=== PATIENT | female | born 1975 | race Caucasian/White ===

== ENCOUNTER 2023-03-02 12:50 | Outpatient (OUT) | payer BC, SELFPAY ==
[2023-03-03 06:08] LABS: Hepatitis B Surf Ab Quant 827.5 mIU/mL (Immunity>9.9)
[2023-03-03 07:08] LABS: Mumps Abs, IgG 35.3 AU/mL (Immune >10.9); Rubella Antibodies, IgG 1.41 index (Immune >0.99); Varicella-Zoster V Ab, IgG 599 index (Immune >165)
[2023-03-04 06:08] LABS: QuantiFERON-TB Gold Plus Positive (Negative)
== END 2023-03-02 12:51 ==
LOC: LAB 12:54
PROVIDERS: PCP Family Medicine; Visit Provider Family Medicine
DX: Z13.89 Encounter for screening for other disorder (principal)
CPT/HCPCS: 36415; 86480; 86706; 86735; 86762; 86765; 86787

== ENCOUNTER 2023-04-15 15:21 | Outpatient (OUT) | payer BC, SELFPAY ==
[2023-04-15 16:14] LABS: Thyroid Stimulating Hormone 3.699 uIU/mL (0.358-3.740)
[2023-04-17 04:23] LABS: Estradiol <5.0 pg/mL (.); FSH 64.4 mIU/mL (.); Luteinizing Hormone(LH) 39.1 mIU/mL (.); Progesterone 0.1 ng/mL (.)
[2023-04-20 06:06] LABS: DHEA, Serum 85 ng/dL (31-701)
== END 2023-04-15 15:22 | disposition home or self-care (01) ==
LOC: LAB 15:22
PROVIDERS: PCP Family Medicine; Visit Provider Family Medicine
DX: N95.1 Menopausal and female climacteric states (principal)
CPT/HCPCS: 36415; 82626; 82670; 83001; 83002; 84144; 84146; 84443

== ENCOUNTER 2023-06-19 11:16 | Outpatient (OUT) | payer BC, SELFPAY ==
--- NOTE | 2023-06-19 11:30 | XR_ITS ---
The [address] [address] Patient Name: IMAN DURAN MRN: [id number] date: 1975 Sex: F Assigned Patient Location: [facility] Current Patient Location: [facility] Accession/Order Number: [id number] Exam Date: 06/19/2023 11:23 Report Date: 06/19/2023 13:19 At the request of: DORIS LEWIS Procedure: XR abdomen 1V EXAM: XR abdomen 1V HISTORY: Right Kidney Stone N20.0 COMPARISON: None. TECHNIQUE: AP view of the abdomen. FINDINGS: Nonobstructive bowel gas pattern is noted. There is no suspicious calcification. The osseous structures are intact. XR/XR abdomen 1V IMPRESSION: Nonobstructive bowel gas pattern. No suspicious renal calcification. Electronically authenticated by: TUTU GARZA Date: 06/19/2023 13:19
== END 2023-06-19 11:17 | disposition home or self-care (01) ==
PROVIDERS: PCP Family Medicine; Visit Provider Family Medicine
DX: N20.0 Calculus of kidney (principal)
CPT/HCPCS: 74018

== ENCOUNTER 2023-06-20 05:47 | Emergency (ER) | payer BC, SELFPAY ==
[2023-06-20 05:50] VITALS: BP 147/92; PULSE 69; RESP 16; TEMP 36.4; O2SAT 98; BMI 36.3
--- NOTE | 2023-06-20 06:09 | CT_ITS ---
The [address] [address] Patient Name: IMAN DURAN MRN: [id number] date: 1975 Sex: F Assigned Patient Location: ER Current Patient Location: ER Accession/Order Number: [id number] Exam Date: 06/20/2023 06:15 Report Date: 06/20/2023 08:07 At the request of: VON WASHINGTON Procedure: CT abdomen pelvis wo con CT abdomen pelvis wo con CLINICAL HISTORY: Right flank pain. Vomiting. History of renal stones. COMPARISON: None Available. TECHNIQUE: No IV contrast axial CT scan from lung bases through symphysis pubis. Lack of IV contrast limits evaluation of solid organs. Oral contrast was not administered. Coronal and sagittal reconstructed images generated. Dose reduction techniques were achieved by using automated exposure control and/or adjustment of mA and/or kV according to patient size and/or use of iterative reconstruction technique. FINDINGS: CT ABDOMEN FINDINGS: Normal heart size. Small hiatal hernia. Lung bases clear. Liver and spleen normal in size. Normal sized adrenal glands. Gallbladder and pancreas unremarkable. No renal stone or hydronephrosis on the left. On the right there is a 2 mm calculus at the right ureterovesicular junction with mild right hydronephrosis and perinephric edema. There are two additional 2 mm nonobstructing calculi over the right mid and lower poles. Also a 1 mm nonobstructing calculus over the right lower pole. Normal caliber abdominal aorta. GI tract nondilated without obstruction. No significant inflammatory change or ascites. Appendix is negative. CT PELVIS FINDINGS: Hysterectomy. Urinary bladder not distended but otherwise unremarkable. Scattered pelvic phleboliths. No acute bony process. CT/CT abdomen pelvis wo con IMPRESSION: 2 mm right ureterovesicular junction calculus causing mild right hydronephrosis. Two small nonobstructing right renal calculi. Appendix negative. Electronically authenticated by: CASSANDRA HERNANDEZ Date: 06/20/2023 08:07
--- NOTE | 2023-06-20 06:16 | ED_ITS ---
HPI - General Adult General Chief complaint: Abdominal Pain Stated complaint: flank pain Time Seen by Provider: 06/20/23 06:05 Mode of arrival: Wheelchair History of Present Illness HPI narrative: 47-year-old female to the emergency department with chief complaint of acute onset of right-sided flank pain that began early this morning. She has had some generalized discomfort in her right flank over the last few days which has been intermittent but now has pain in her right flank radiating into her groin. She reports dysuria, hematuria. She reports a history of a kidney stone a little over a year ago with similar symptoms. She x-ray today which did not reveal the source of the pain. She saw her primary care doctor for this. She reports that she has nausea and vomiting associated with the pain. She denies any fever, sweats, chills. Related Data Home Medications Medication Instructions Recorded Confirmed No Known Home Medications 06/20/23 06/20/23 Allergies Allergy/AdvReac Type Severity Reaction Status Date / Time doxycycline Allergy Unknown Verified 06/20/23 05:53 Sulfa (Sulfonamide Allergy Unknown Verified 06/20/23 05:53 Antibiotics) Review of Systems ROS Status of ROS 10 or more systems reviewed and unremarkable except as noted in history and below [facility] Social History Smoking status: Never smoker Exam Narrative Exam Narrative: VITALS: I have reviewed the triage vital signs. GENERAL: Uncomfortable appearing adult female holding her right flank NEURO: Alert and oriented. Moves all extremities. Face is symmetric and expressive. EYES: PERRL. No scleral icterus or conjunctival injection. No discharge. HENT: Normocephalic, atraumatic. Hearing is grossly intact. Nares grossly patent and without discharge. Mucous membranes moist. NECK: No JVD. Patient moves neck without restriction. CARDIO: Rhythm regular. Normal rate. No murmur, rub, or gallop. Pulses equal bilaterally in the upper and lower extremity. No lower extremity edema. PULM: Lungs clear to auscultation in all see. No wheezes, rales, or rhonchi. No conversational dyspnea. No splinting, stridor, or accessory muscle use. GI/: Abdomen is soft and non-tender. Normoactive bowel sounds. EXTREMITIES: Symmetric muscle bulk. No joint swelling. No clubbing, cyanosis, or deformity. SKIN: Warm and dry. Normal turgor. No rash or lesions appreciated. PSYCH: Mood, affect, and interaction is appropriate to the setting. Constitutional Vital Signs, click to edit/add: Last Vital Signs Temp 97.5 F L 06/20/23 05:50 Pulse 69 06/20/23 05:50 Resp 16 06/20/23 05:50 BP 147/92 H 06/20/23 05:50 Pulse Ox 98 06/20/23 05:50 O2 Del Method Room Air 06/20/23 05:50 Course Vital Signs Vital signs: Vital Signs Temperature 97.5 F L 06/20/23 05:50 Pulse Rate 69 06/20/23 05:50 Respiratory Rate 16 06/20/23 05:50 Blood Pressure 147/92 H 06/20/23 05:50 Pulse Oximetry 98 06/20/23 05:50 Oxygen Delivery Method Room Air 06/20/23 05:50 Temperature 97.5 F L 06/20/23 05:50 Pulse Rate 69 06/20/23 05:50 Respiratory Rate 16 06/20/23 05:50 Blood Pressure 147/92 H 06/20/23 05:50 Pulse Oximetry 98 06/20/23 05:50 Oxygen Delivery Method Room Air 06/20/23 05:50 Medical Decision Making MDM Narrative Medical decision making narrative: Number and Complexity of Problems Differential Diagnosis: Kidney stone, Pyelonephritis, urinary tract infection, appendicitis, diverticulitis, musculoskeletal pain MDM Data External documents reviewed: Not applicable My EKG interpretation: Not applicable My CT interpretation: Reviewed, as below My X-ray interpretation: Not applicable My Ultrasound interpretation: Not applicable Decision rules/scores evaluated: Not applicable Discussed with: Not applicable Treatment and Disposition ED Course: 47-year-old female to the emergency department with chief complaint right flank pain. Vital stable, the patient is afebrile. Her abdominal examination is benign. Highly suspect kidney stone based on the presentation and history. We'll obtain basic labs, urinalysis, CT scan abdomen and pelvis without contrast. IV Toradol, morphine, Zofran ordered for symptom control. Fluids are ordered. Patient agrees with this plan. CBC and chemistry without major abnormality. Urinalysis without evidence of infection. Care was signed out to Dr. Antunez awaiting results of CT imaging and disposition. Shared decision making: As above Code status: Not addressed during this visit Medical Records Medical records reviewed: Yes I reviewed the patient's medical records Lab Data Lab results reviewed: Yes I reviewed the patient's lab results Labs: Lab Results 06/20/23 Range/Units 05:55 WBC 9.7 (4.0-11.0) 10^3/uL RBC 4.39 (4.20-5.40) 10^6/uL Hgb 13.7 (12.0-16.0) g/dL Hct 40.3 (36.0-48.0) % MCV 91.8 (81.0-99.0) fL MCH 31.2 (26.7-34.0) pg MCHC 34.0 (29.9-35.2) g/dL RDW 12.6 (11.0-15.0) % Plt Count 283 (150-450) 10^3/uL MPV 10.6 (9.5-13.5) fL Neut % (Auto) 58.7 (43.0-75.0) % Lymph % (Auto) 28.7 (20.5-60.0) % [place] % (Auto) 5.5 (1.7-12.0) % Eos % (Auto) 6.3 (0.9-7.0) % Baso % (Auto) 0.4 (0.2-2.0) % Neut # (Auto) 5.7 (1.4-6.5) 10^3/uL Lymph # (Auto) 2.8 (1.2-3.8) 10^3/uL [place] # (Auto) 0.5 (0.3-0.8) 10^3/uL Eos # (Auto) 0.6 (0.0-0.7) 10^3/uL Baso # (Auto) 0.0 (0.0-0.1) 10^3/uL Abs Immat Gran (auto) 0.04 H (0.00-0.03) 10^3/uL Imm/Tot Granulo (auto) 0.4 (0.0-0.5) % Sodium 139 (136-145) mmol/L Potassium 4.0 (3.5-5.1) mmol/L Chloride 106 (98-107) mmol/L Carbon Dioxide 23.0 (21.0-32.0) mmol/L Anion Gap 14.0 BUN 15.0 (7.0-18.0) mg/dL Creatinine 0.87 (0.55-1.02) mg/dL Est GFR ( Amer) >60 (>=60) Est GFR (Non-Af Amer) >60 (>=60) BUN/Creatinine Ratio 17.2 Glucose 142 H (74-106) mg/dL Calcium 8.8 (8.5-10.1) mg/dL Urine Color Lt. yellow (YELLOW) Urine Clarity Clear (CLEAR) Urine pH 5.5 (5.0-9.0) Ur Specific [place] >=1.030 A (1.005-1.025) Urine Protein Negative (NEG/TRACE) mg/dL Urine Glucose (UA) Negative (NEGATIVE) mg/dL Urine Ketones Negative (NEGATIVE) mg/dL Urine Occult Blood Small A (NEGATIVE) Urine Nitrite Negative (NEGATIVE) Urine Bilirubin Negative (NEGATIVE) Urine Urobilinogen 0.2 (0.2-1.0) EU/dL Ur Leukocyte Esterase Negative (NEGATIVE) Urine RBC 0-2 (0-2) #/HPF Urine WBC None seen (NONE SEEN) #/HPF Ur Squamous Epith Cells Moderate A (NONE/RARE) #/LPF Urine Crystals None seen (None Seen) #/HPF Urine Bacteria Trace A (NONE SEEN) #/HPF Urine Casts Seen A (NONE SEEN) #/LPF Hyaline Casts Rare Urine Mucus None seen (NONE SEEN) Imaging Data CT scan - abdomen: Attestation: I have reviewed the pertinent imaging results. Discharge Plan Discharge Chief Complaint: Abdominal Pain Clinical Impression: Acute flank pain Prescriptions / Home Meds: No Action No Known Home Medications Referrals: Viral Loving MD [Primary Care Provider] - 1 week
[2023-06-20 06:20] LABS: Basophils Percent Auto 0.4 % (0.2-2.0); Eosinophils Absolute Auto 0.6 10^3/uL (0.0-0.7); Eosinophils Percent Auto 6.3 % (0.9-7.0); Hematocrit 40.3 % (36.0-48.0); Hemoglobin 13.7 g/dL (12.0-16.0); Immature Granulocytes Abs Auto 0.04 10^3/uL (0.00-0.03); Immature Granulocytes Pct Auto 0.4 % (0.0-0.5); Lymphocytes Absolute Auto 2.8 10^3/uL (1.2-3.8); Lymphocytes Percent Auto 28.7 % (20.5-60.0); Mean Corpuscular Hemoglobin 31.2 pg (26.7-34.0); Mean Corpuscular Volume 91.8 fL (81.0-99.0); Mean Platelet Volume 10.6 fL (9.5-13.5); Monocytes Absolute Auto 0.5 10^3/uL (0.3-0.8); Monocytes Percent Auto 5.5 % (1.7-12.0); Neutrophils Absolute Auto 5.7 10^3/uL (1.4-6.5); Neutrophils Percent Auto 58.7 % (43.0-75.0); Platelet Count 283 10^3/uL (150-450); Red Blood Count 4.39 10^6/uL (4.20-5.40); Red Cell Distribution Width 12.6 % (11.0-15.0); White Blood Count 9.7 10^3/uL (4.0-11.0)
[2023-06-20 06:21] LABS: Bilirubin Urine NEGATIVE (NEGATIVE); Blood Urine SMALL (NEGATIVE); Clarity Urine CLEAR (CLEAR); Color Urine LT. YELLOW (YELLOW); Glucose Urine UA NEGATIVE (NEGATIVE); Ketones Urine NEGATIVE (NEGATIVE); Leukocyte Esterase Urine NEGATIVE (NEGATIVE); Nitrite Urine NEGATIVE (NEGATIVE); Protein Urine NEGATIVE (NEG/TRACE); Specific Gravity Urine >=1.030 (1.005-1.025); Urobilinogen Urine 0.2 EU/dL (0.2-1.0); pH Urine 5.5 (5.0-9.0)
[2023-06-20 06:22] LABS: Urine Microscopic Indicated YES
[2023-06-20] MEDS: 0.9 % SODIUM CHLORIDE 1,000 ML 999 ML IV (06:25)
[2023-06-20] MEDS: MORPHINE SULFATE 2 MG/ML SYRINGE 4 MG IV (06:26)
[2023-06-20] MEDS: KETOROLAC TROMETHAMINE 30 MG/ML VIAL 15 MG IVP ×2 (06:27→08:05)
[2023-06-20] MEDS: ONDANSETRON PF 4 MG/2 ML VIAL IV (06:27)
[2023-06-20 06:31] LABS: Squamous Epithelial Cell Urine MODERATE #/LPF (NONE/RARE)
[2023-06-20 06:32] LABS: Cast Seen? SEEN #/LPF (NONE SEEN); Hyaline Casts Urine RARE
[2023-06-20 06:33] LABS: BUN Creatinine Ratio 17.2; Calcium 8.8 mg/dL (8.5-10.1); Chloride 106 mmol/L (98-107); Estimated GFR (African America >60 (>=60); Estimated GFR (Non-African Ame >60 (>=60); Glucose 142 mg/dL (74-106); Sodium 139 mmol/L (136-145)
[2023-06-20 06:34] LABS: Bacteria Urine TRACE #/HPF (NONE SEEN); Crystals Seen? None Seen #/HPF (None Seen); Mucus Urine NONE SEEN (NONE SEEN); RBC Urine 0-2 #/HPF (0-2); WBC Urine NONE SEEN #/HPF (NONE SEEN)
[2023-06-20 07:04] VITALS: BP 120/72; PULSE 88; RESP 16; O2SAT 98
[2023-06-20] MEDS: HYOSCYAMINE SULFATE 0.125 MG TAB.SUBL PO (07:54)
[2023-06-20] MEDS: OXYCODONE HCL/ACETAMINOPHEN 5MG/325MG 1 TAB PO (08:04)
[2023-06-20 08:22] VITALS: BP 130/85; PULSE 84; RESP 16; O2SAT 97
== END 2023-06-20 08:26 | disposition home or self-care (01) ==
PROVIDERS: Emergency Provider Student in an Organized Health Care Education/Training Program; PCP Family Medicine
DX: N13.2 Hydronephrosis with renal and ureteral calculous obstruction (principal); Z87.442 Personal history of urinary calculi
CPT/HCPCS: 36415; 74176; 80048; 81001; 85025; 96361; 96374; 96375; 96376; 99285

== ENCOUNTER 2023-07-01 13:27 | Outpatient (REF) | payer BC, SELFPAY ==
[2023-07-09 16:09] LABS: Calcium Oxalate Dihydrate 20 % (.); Calcium Oxalate Monohydrate 75 % (.); Calcium phosphate (hydroxyl) 5 % (.); Size 3x2 mm (.)
== END 2023-07-01 13:28 | disposition home or self-care (01) ==
LOC: LAB 13:27
PROVIDERS: PCP Family Medicine; Visit Provider Family Medicine
DX: N20.0 Calculus of kidney (principal)
CPT/HCPCS: 82365

== ENCOUNTER 2023-07-17 09:49 | Outpatient (REF) | payer BC, SELFPAY ==
[2023-07-17 10:20] LABS: Influenza Virus A Antigen Negative; Influenza Virus B Antigen Negative; Internal Control Within Normal Limits; SARS-CoV-2 Ag NEGATIVE (NEGATIVE)
[2023-07-17 12:59] LABS: SARS-CoV-2 NAA NOT DETECTED (NOT DETECTE)
== END 2023-07-17 09:50 | disposition home or self-care (01) ==
LOC: LAB 09:49
PROVIDERS: PCP Family Medicine; Visit Provider Internal Medicine
DX: Z20.822 Contact with and (suspected) exposure to COVID-19 (principal)
CPT/HCPCS: 87635; 87804; 87811

== ENCOUNTER 2023-07-28 15:45 | Outpatient (OUT) | payer BC, SELFPAY ==
--- NOTE | 2023-07-28 15:47 | MR_ITS ---
The [place] [id number] Patient Name: IMAN DURAN MRN: [id number] date: 1975 Sex: F Assigned Patient Location: MRI Current Patient Location: MRI Accession/Order Number: [id number] Exam Date: 07/28/2023 16:00 Report Date: 07/29/2023 08:17 At the request of: NEELAM Moffett APLING Procedure: MR knee RT wo con MR knee RT wo con, 07/28/2023 4:00 PM EST INDICATION: Internal Derangement Right Knee M25.91 COMPARISON: This study was compared to the prior x-ray of the left knee dated 11/14/2009 TECHNIQUE: Multiplanar and multisequential MR images of the right knee were obtained without contrast. FINDINGS: Meniscus: Mild T2 prolongation within the posterior horn of the lateral meniscus with no definite tear likely degenerative. No definite tear in the of menisci is noted. No abnormality of meniscal roots is noted. Ligaments: The ACL, PCL, LCL, MCL and iliotibial tract are unremarkable. Cartilage: The cartilages are unremarkable for age. Bone: There is no bone marrow edema. No osseus lesion. No acute fracture or dislocation. Muscles and tendons: The visualized portions of muscles and its tendons are unremarkable. There is trace intra-articular joint effusion. MR/MR knee RT wo con IMPRESSION: Mild signal abnormality within the posterior horn of the lateral meniscus likely degenerative. No definite tear is noted. Otherwise, unremarkable MRI of the right knee. Electronically authenticated by: ELIZABETH CHANEL Date: 07/29/2023 08:17
== END 2023-07-28 15:46 | disposition home or self-care (01) ==
LOC: MRI 15:45
PROVIDERS: PCP Family Medicine; Visit Provider Nurse Practitioner Family
DX: M23.91 Unspecified internal derangement of right knee (principal)
CPT/HCPCS: 73721

== ENCOUNTER 2023-10-15 16:08 | Outpatient (OUT) | payer BC, SELFPAY ==
[2023-10-15 16:48] LABS: Basophils Absolute Auto 0.1 10^3/uL (0.0-0.1); Basophils Percent Auto 0.7 % (0.2-2.0); Eosinophils Absolute Auto 0.5 10^3/uL (0.0-0.7); Eosinophils Percent Auto 5.5 % (0.9-7.0); Hematocrit 40.8 % (36.0-48.0); Hemoglobin 13.4 g/dL (12.0-16.0); Immature Granulocytes Abs Auto 0.04 10^3/uL (0.00-0.03); Immature Granulocytes Pct Auto 0.4 % (0.0-0.5); Lymphocytes Absolute Auto 2.7 10^3/uL (1.2-3.8); Lymphocytes Percent Auto 28.5 % (20.5-60.0); Mean Corpuscular HGB Conc 32.8 g/dL (29.9-35.2); Mean Corpuscular Hemoglobin 29.6 pg (26.7-34.0); Mean Corpuscular Volume 90.1 fL (81.0-99.0); Mean Platelet Volume 10.3 fL (9.5-13.5); Monocytes Absolute Auto 0.6 10^3/uL (0.3-0.8); Neutrophils Absolute Auto 5.6 10^3/uL (1.4-6.5); Neutrophils Percent Auto 58.9 % (43.0-75.0); Platelet Count 282 10^3/uL (150-450); Red Blood Count 4.53 10^6/uL (4.20-5.40); Red Cell Distribution Width 13.2 % (11.0-15.0); White Blood Count 9.5 10^3/uL (4.0-11.0)
[2023-10-15 17:08] LABS: Creatinine Urine Random 105.95 mg/dL (20.00-300.00); Total Protein Urine Random <6.0 mg/dL (<=11.9)
[2023-10-15 17:09] LABS: Estimated Average Glucose 94 mg/dL; Glycohemoglobin A1C 4.9 % (4.5-6.2)
[2023-10-15 17:23] LABS: Alanine Aminotransferase 19 U/L (14-59); Albumin Globulin Ratio 1.1; Albumin Level 3.8 g/dL (3.4-5.0); Alkaline Phosphatase 93 U/L (46-116); Anion Gap 8.5; Aspartate Amino Transferase 16 U/L (15-37); BUN Creatinine Ratio 16.7; Bilirubin Total 0.5 mg/dL (0.2-1.0); Chloride 102 mmol/L (98-107); Chol HDL Ratio 2.5; Cholesterol 165 mg/dL (<=200); Estimated GFR (African America >60 (>=60); Estimated GFR (Non-African Ame >60 (>=60); Globulin 3.5 g/dL; Glucose 87 mg/dL (74-106); HDL Cholesterol 66 mg/dL (40-60); Potassium 3.5 mmol/L (3.5-5.1); Sodium 134 mmol/L (136-145); Total Protein 7.3 g/dL (6.4-8.2); Triglycerides 69 mg/dL (<=150); VLDL CHOLESTEROL 13.8 mg/dL
== END 2023-10-15 16:09 | disposition home or self-care (01) ==
LOC: LAB 16:09
PROVIDERS: PCP Family Medicine; Visit Provider Internal Medicine
DX: R60.0 Localized edema (principal); K75.4 Autoimmune hepatitis; Z13.1 Encounter for screening for diabetes mellitus; Z13.220 Encounter for screening for lipoid disorders
CPT/HCPCS: 36415; 80053; 80061; 82570; 83036; 84156; 85025

== ENCOUNTER 2023-10-23 14:21 | Outpatient (OUT) | payer BC, SELFPAY ==
--- OUTSIDE RECORDS SUMMARY | 2023-10-23 14:25 | XMS_ITS | CCD ---
Author Name Unknown Address [id number] [place] [address] Organization [facility] Care Team Providers Care Electrical/Instrument Technician Name Role Phone Chas Elian Unavailable Unavailable Didier Beltrán Unavailable Unavailable Viral Lewis Unavailable Unavailable Nir Zamarripa Unavailable [phone] Ellie Kemp Unavailable MD Viral Lewis Primary Care Provider [phone] MD Nir Zamarripa Attending Provider FAWWAD, BOWERS H Admitting Unavailable FAQUIQUE, BOWERS H Consulting Unavailable JOSE, BOWERS H Attending Unavailable JOSHUA, DR VIRAL Cervantes Primary Care Unavailable JOSHUA, DR VIRAL Cervantes Consulting Unavailable JOSHUA, DR VIRAL Cervantes Attending Unavailable JOSHUA, DR VIRAL Cervantes Admitting Unavailable JOSHUA, DR VIRAL Cervantes Primary Care Unavailable FAQUIQUE, BOWERS H Attending Unavailable JOSE, BOWERS H Admitting Unavailable PHOENIX GARCIAIKH H Consulting Unavailable JOSHUA, DR VIRAL Cervantes Primary Care Unavailable GOGO CERVANTESIN Consulting Unavailable Faina Miller Unavailable CRISSY Miller Attending Provider Viral Lewis Primary Care Unavailable Nir Zamarripa Admitting UnavailNir Coronado Attending UnavailFaina Walton Admitting Unavailable aFina Miller Attending Unavailable NO FAMILY, PHYSICIAN Primary Care Unavailable Cris GREER, Sendy Quigley Attending Love Lewis MD, Viral Self Primary Care Unavail able Viral Lewis MD Primary Care Unavail able Cris GREER, Sendy Quigley Attending Love Lewis MD, Viral Self Primary Care Unavail able Cris GREER, Sendy Quigley Attending Love Lewis MD, Viral Self Primary Care Unavail rudi Lewis MD, Viral Self Consulting Unavail rudi Lynch PA-C, Sendy Quigley Attending Love Lynch PA-C, Sendy Quigley Attending Love Lewis MD, Viral Self Primary Care Unavail rudi Lewis MD, Viral Primary Care Provider [phone] BREE BENITEZ Attending Unavailable SHAIKH GARCIA Attending Unavailable YARELIS MALIK Attending Unavailable Allergies Allergy Classification Reported Allergen(s) Allergy Type Date of Onset Reaction(s) Facility (20 sources) Doxycycline; Translations: [doxycycline] Drug Allergy 06-21-20 [address] [facility] (4 sources) Promethazine; Translations: [Phenergan] Drug Allergy 06-21-20 13 [facility] Repository (2 sources) Sulfonamides (Antibiotic) Allergy to drug (finding) [facility] [address] [employer] Work Phone: (9 sources) Clarithromycin Drug Allergy Unknown [email or web address] Other (15 sources) Promethazine Drug Allergy 06-14-[address] [facility] (9 sources) Sulfacetamide Drug Allergy Unknown [email or web address] Other (9 sources) cat scan contrast Propensity to adverse reactions Unknown [email or web address] Other (3 sources) Sulfonamides (Antibiotic); Translations: [Sulfa (Sulfonamide Antibiotics)] Allergy to substance 06-14-[address] [facility] (3 sources) Iodinated Contrast Media; Translations: [Iodinated Contrast Media] Allergy to substance 06-14-20 19 Difficulty [address] [facility] (1 source) Sulfonamides (Antibiotic) Drug allergy (disorder) 06-21-20 13 [facility] (1 source) topiramate Drug Allergy 06-21-20 13 [facility] (1 source) Promethazine Drug Allergy 06-14-[address] [facility] Repository (1 source) Contrast media; Translations: [contrast media (iodine-based)] Propensity to adverse reactions to drug (disorder) [facility] Repository (3 sources) Sulfonamides (Antibiotic) Drug Allergy 06-14-20 Hives, Rash [facility] Medications Current Medications Medication Drug Class(es) Dates Sig (Normalized) Sig (Original) amitriptyline hydrochloride 10 mg oral tablet (4 sources) Tricyclic Antidepressant Start: 02-02-2018 take 10 mg by mouth once daily Amitriptyline Active 10 MG PO Daily April 23, 2018 12:00am azithromycin 500 mg oral tablet (2 sources) Macrolide Antimicrobial Start: 10-23-2021 take 2 tablets by mouth once Zithromax 500 MG 2 tabs Orally once for 1 days Oct, Active meclizine hydrochloride 25 mg oral tablet (2 sources) Antiemetic Start: 06-15-2019 take 25 mg by mouth three to four times daily Meclizine Active 25 MG PO 3 to 4 times per day June 15, 2019 12:00am montelukast 10 mg oral tablet (11 sources) Leukotriene Receptor Antagonist Start: 11-15-2018 take 2 tablets by mouth once daily in the evening Montelukast (Singulair) 10 mg Tablet Active 20 MG PO Every evening November 15, 2018 1:00am take 1 tablet by lulu th every twenty-four hours Singulair 5 MG 1 tablet Orally Once a day for 30 days Active ondansetron 4 mg disintegrating oral tablet (2 sources) Serotonin-3 Receptor Antagonist Start: 06-15-2019 Ondansetron Active 4 MG PO every 6 to 8 hours June 15, 2019 12:00am pantoprazole 40 mg delayed release oral tablet (2 sources) Proton Pump Inhibitor Start: 01-29-2023 take 1 tablet by mouth every twenty-four hours Pantoprazole Sodium 40 MG 1 tablet Orally Once a day for 30 days January, Active Toradol 30 mg/ml (5 sources) Start: 03-26-2021 Toradol 30 mg/ml Mar, 60 mg Completed/Discontinued Medications Medication Drug Class(es) Dates Sig (Normalized) Sig (Original) cefTRIAXone (5 sources) Cephalosporin Antibacterial Start: 10-23-2021 Ceftriaxone 500mg Oct, 500 mg fluconazole 150 mg oral tablet (7 sources) Azole Antifungal Start: 09-25-2023 End: 10-15-2023 fluconazole (Diflucan) 150 MG tablet Indications: Dysuria , Vaginal discharge Take 1 tablet (150 mg) by mouth in the morning. Take 1 tab today; may repeat x 1 if no improvement in symptoms in 72 hours. 2 tablet 0 09/25/2023 10/15/2023 Discontinued (Therapy completed) Start: 04-30-2023 Fluconazole 15 0 MG 1 tablet Orally once, repeat dose in 72 hours if needed for 2 Apr, Active Start: 10-23-2021 take 1 tablet by lulu th every week Diflucan 150 MG 1 tablet Orally Q week for 7 days Take 1 tablet by mouth today, repeat in 1 week. Oct, Active lamoTRIgine 25 mg oral tablet (2 sources) Mood Stabilizer, Anti-epileptic Agent Start: 03-01-2020 take 2 tablets by mouth twice daily lamoTRIgine 25 MG Oral Tablet Take 2 tablets (50mg) twice a day. Quantity: 360 Refills: 3 Didier Beltrán MD Start : 01-Mar-2020 Active Start: 02-14-2020 take 1 tablet by lulu th twice daily, then take 2 tablets by mouth lamoTRIgine 25 MG Oral Tablet Take one tablet twice a day for one week then increase to two tablets twice aday and stay at this dose. Quantity: 120 Refills: 5 Didier Beltrán MD Start : 14-Feb-2020 Active metroNIDAZOLE 500 mg oral tablet (12 sources) Nitroimidazole Antimicrobial Start: 10-07-2023 End: 10-15-2023 take 1 tablet by mouth in the morning metroNIDAZOLE (Flagyl) 500 MG tablet Indications: Bacterial vaginosis Take 1 tablet (500 mg) by mouth in the morning and 1 tablet (500 mg) before bedtime. Do all this for 7 days. 14 tablet 0 10/07/2023 10/15/2023 Discontinued (Therapy completed) Start: 04-30-2023 take 1 tablet by lulu th every twelve hours metroNIDAZOLE 500 MG 1 tablet Orally Twice a day for 7 day(s) Apr, Active Start: 10-23-2021 metroNIDAZOLE 0.75 % 1 application intravaginally Once a day for 5 day(s) Oct, Active Start: 10-23-2021 take 4 tablets by mo uth once at mealtime metroNIDAZOLE 500 MG 4 tabs Orally once for 1 day Take 4 tablets by mouth all at once with food today Oct, Active Start: 10-23-2021 Metrogel 1 % 1 application intravaginally Once a day for 5 day(s) Oct, Active Start: 06-15-2019 take 1 tablet by lulu th every twelve hours Metronidazole (Flagyl) 500 mg tablet Active 500 MG PO Q12H 20 June 15, 2019 12:00am omeprazole 40 mg delayed release oral capsule (2 sources) Proton Pump Inhibitor Start: 04-23-2018 End: 12-07-2018 take 40 mg by mouth twice daily Omeprazole Discontinued 40 MG PO Twice daily April 23, 2018 12:00am December 07, 2018 1:23pm oseltamivir 75 mg oral capsule (2 sources) Neuraminidase Inhibitor Start: 11-15-2018 End: 11-20-2018 take 1 capsule by mouth twice daily Oseltamivir (Tamiflu) 75 mg capsule Discontinued 75 MG PO Twice daily 06 18November 15, 2018 1:00am November 20, 2018 1:03am Problems Active Problems Problem Classification Problem Date Documented Da te Episodic/Chronic Abdominal hernia (9 sources) Hiatal hernia; Translations: [Diaphragmatic hernia without obstruction or gangrene] Episodic Abdominal pain (20 sources) Abdominal pain; Translations: [Unspecified abdominal pain] Onset: 09-24-2021 Resolved: 12-16-2021 Episodic Cardiac dysrhythmias (2 sources) Palpitations; Translations: [Palpitations] 02-01-2019 Episodic Complications of surgical procedures or medical care (2 sources) Drug therapy finding; Translations: [Unspecified adverse effect of drug or medicament, initial encounter] 06-12-2019 Episodic Esophageal disorders (20 sources) Lower esophageal ring; Translations: [Esophageal obstruction] Onset: 09-24-2021 Resolved: 12-16-2021 Chronic Fluid and electrolyte disorders (2 sources) Dehydration; Translations: [Dehydration] 06-15-2019 Episodic Headache; including migraine (15 sources) Migraine with aura; Translations: [Migraine without aura] Chronic Headache; including migraine (2 sources) Chronic headache disorder; Translations: [Chronic headaches] Episodic Hepatitis (18 sources) Autoimmune hepatitis; Translations: [Autoimmune hepatitis] Onset: 09-24-2021 Resolved: 10-11-2021 Chronic Intestinal infection (11 sources) Helicobacter-associat ed disease; Translations: [Other specified bacterial intestinal infections] 06-15-2019 Episodic Malaise and fatigue (19 sources) Asthenia; Translations: [Weakness] Onset: 10-11-2021 Resolved: 10-11-2021 Episodic Nausea and vomiting (20 sources) Nausea; Translations: [Nausea] Onset: 10-11-2021 Resolved: 10-11-2021 Episodic Nonspecific chest pain (9 sources) Chest pain; Translations: [Other chest pain] Episodic Osteoarthritis (4 sources) Osteoarthritis of right knee joint; Translations: [Unilateral primary osteoarthritis, right knee] Onset: 04-07-2023 04-07-2023 Chronic Other female genital disorders (3 sources) Other specified noninflammatory disorders of vagina Onset: 10-23-2021 Resolved: 10-23-2021 Episodic Other female genital disorders (1 source) Other specified noninflammatory disorders of vagina; Translations: [Other specified noninflammatory disorders of vagina] Onset: 04-30-2023 Episodic Other gastrointestinal disorders (2 sources) H/O: abdominal hernia; Translations: [History of hiatal hernia] Episodic Other gastrointestinal disorders (2 sources) H/O: liver disease; Translations: [History of hepatitis] Episodic Other gastrointestinal disorders (9 sources) Heartburn; Translations: [Heartburn] Episodic Other gastrointestinal disorders (9 sources) Constipation; Translations: [Constipation, unspecified] Episodic Other gastrointestinal disorders (18 sources) Dysphagia; Translations: [Dysphagia, unspecified] Episodic Other gastrointestinal disorders (9 sources) Eructation; Translations: [Burping] Episodic Other gastrointestinal disorders (10 sources) Flatulence; Translations: [Gas] Onset: 12-16-2021 Resolved: 12-16-2021 Episodic Other gastrointestinal disorders (9 sources) Diarrhea; Translations: [Diarrhea, unspecified] Episodic Other nervous system disorders (2 sources) Sensory disorder; Translations: [Sensory disturbance] Episodic Other nervous system disorders (2 sources) Numbness of face; Translations: [Facial numbness] Episodic Other nutritional; endocrine; and metabolic disorders (9 sources) Body mass index 30+ - obesity; Translations: [Body mass index (BMI) 32.0-32.9, adult] Chronic Other nutritional; endocrine; and metabolic disorders (18 sources) Obese class I; Translations: [Body mass index (BMI) 31.0-31.9, adult] Chronic Other nutritional; endocrine; and metabolic disorders (2 sources) Obesity; Translations: [Obesity, unspecified] Chronic Other nutritional; endocrine; and metabolic disorders (4 sources) Obesity caused by energy imbalance; Translations: [Other obesity due to excess calories] Onset: 08-31-2023 08-31-2023 Chronic Other nutritional; endocrine; and metabolic disorders (9 sources) Loss of appetite; Translations: [Anorexia] Episodic Other screening for suspected conditions (not mental disorders or infectious disease) (10 sources) Patient encounter status; Translations: [Encounter for screening for lipoid disorders] Onset: 10-15-2023 10-15-2023 Episodic Other skin disorders (2 sources) H/O: skin disorder; Translations: [History of sebaceous cyst] Episodic Other upper respiratory disease (4 sources) Allergic rhinitis caused by mold; Translations: [Other allergic rhinitis] Onset: 04-07-2023 04-07-2023 Chronic Other upper respiratory infections (4 sources) Pharyngitis; Translations: [Acute pharyngitis, unspecified] Onset: 08-31-2023 08-31-2023 Episodic Residual codes; unclassified (2 sources) Sensory symptoms; Translations: [Hemisensory deficit] Episodic Residual codes; unclassified (5 sources) Bilateral lower limb edema; Translations: [Localized edema] Onset: 10-15-2023 10-15-2023 Episodic Past or Other Problems Problem Classification Problem Date Documented Da te Episodic/Chronic Blindness and vision defects (4 sources) Visual disturbance; Translations: [Unspecified visual disturbance] Onset: 04-07-2023 04-07-2023 Episodic Conditions associated with dizziness or vertigo (10 sources) Dizziness; Translations: [Dizziness and giddiness] Onset: 04-07-2023 07-19-2019 Episodic Other female genital disorders (4 sources) Burning sensation of vagina; Translations: [Unspecified condition associated with female genital organs and menstrual cycle] Onset: 04-07-2023 04-07-2023 Episodic Other gastrointestinal disorders (1 source) Heartburn Onset: 09-24-2021 Resolved: 09-24-2021 Episodic Other gastrointestinal disorders (3 sources) Dysphagia, unspecified Onset: 09-24-2021 Resolved: 12-16-2021 Episodic Other lower respiratory disease (4 sources) Respiratory disorder, unspecified; Translations: [RESPIRATORY DISORDER UNSPECIFIED] Onset: 01-20-2022 Episodic Other nervous system disorders (2 sources) Nonspecific paroxysmal spell; Translations: [Nonspecific paroxysmal spell] Residual codes; unclassified (1 source) High risk heterosexual behavior Onset: 10-23-2021 Resolved: 10-23-2021 Episodic Residual codes; unclassified (4 sources) Disorder of head; Translations: [Other general symptoms and signs] Onset: 04-07-2023 04-07-2023 Episodic NEGATED: Highlighted row has not occurred!Residual codes; unclassified (8 sources) Disease Episodic Results Test Name Value Interpretation Reference Range Facility ALL CBC WITH AUTO DIFFon BASOPHILS ABSOLUTE AUTO 0.1 [facility] Basophils/100 WBC (Bld) 0.7 % 0.2 - 2.0 % [facility] Eosinophils/100 WBC (Bld) 5.5 % 0.9 - 7.0 % [facility] Erythrocyte distribution width (RBC) [Ratio] 13.2 % 11.0 - 15.0 % [facility] Hematocrit (Bld) [Volume fraction] 40.8 % 36.0 - 48.0 % [facility] Hemoglobin (Bld) [Mass/Vol] 13.4 g/dL 12.0 - 16.0 g/dL [facility] IMMATURE GRANULOCYTES ABS AUTO 0.04 High [facility] Immature granulocytes/100 WBC (Bld) 0.4 % 0.0 - 0.5 % [facility] Interpretation and review of laboratory results Abnormal [facility] LYMPHOCYTES ABSOLUTE AUTO 2.7 [facility] Lymphocytes/100 WBC (Bld) 28.5 % 20.5 - 60.0 % [facility] MCH (RBC) [Entitic mass] 29.6 pg 26.7 - 34.0 pg [facility] MCHC (RBC) [Mass/Vol] 32.8 g/dL 29.9 - 35.2 g/dL [facility] MCV (RBC) [Entitic vol] 90.1 fL 81.0 - 99.0 fL [facility] MONOCYTES ABSOLUTE AUTO 0.6 [facility] Monocytes/100 WBC (Bld) 6.0 % 1.7 - 12.0 % [facility] NEUTROPHILS ABSOLUTE AUTO 5.6 [facility] Neutrophils/100 WBC (Bld) 58.9 % 43.0 - 75.0 % [facility] Platelet mean volume (Bld) [Entitic vol] 10.3 fL 9.5 - 13.5 fL [facility] TBH EO # 0.5 [facility] TBH PLT 282 [facility] TB RBC 4.53 [facility] WBC 9.5 [facility] Vaginitis Plus (VG+)on 04-30 Atopobium Vaginae High - 2 Critically abnormal . [facility] Comment on above: Order Comment: SOURC E OF SPECIMEN: VAG Performed By: #### V AGINITIS+ #### [facility] , BVAB2 Low - [address] Normal . [facility] Comment on above: Order Comment: SOURC E OF SPECIMEN: VAG Performed By: #### V AGINITIS+ #### [facility] , Mely Albicans, ABRAHAN Negative Normal Negative [facility] Comment on above: Order Comment: SOURC E OF SPECIMEN: VAG Result Comment: This test was developed and its performance characteristics determined by [facility]. It has not been cleared or approved by the Food and Drug Administration. Performed By: #### V AGINITIS+ #### [facility] , Mely Glabrata, ABRAHAN Negative Normal Negative [facility] Comment on above: Order Comment: SOURC E OF SPECIMEN: VAG Result Comment: This test was developed and its performance characteristics determined by [facility]. It has not been cleared or approved by the Food and Drug Administration. PERFORMED BY: [facility] [address] [place] [address] PATHOLOGIST INSIDE METER TESTER MADELINE EDGAR M.D. Performed By: #### V AGINITIS+ #### [facility] , Chlamydia Trachomotis, ABRAHAN Negative Normal Negative [facility] Comment on above: Order Comment: SOURC E OF SPECIMEN: VAG Performed By: #### V AGINITIS+ #### [facility] , Megasphaera Low - 0 Normal . [facility] Comment on above: Order Comment: SOURC E OF SPECIMEN: VAG Result Comment: Calc ulate total score by adding the 3 individual bacterial vaginosis (BV) marker scores together. Total score is interpreted as follows: Total score 0-1: Indicates the absence of BV. Total score 2: Indeterminate for BV. Additional clinical data should be evaluated to establish a diagnosis. Total score 3-6: Indicates the presence of BV. This test was developed and its performance characteristics determined by [facility]. It has not been cleared or approved by the Food and Drug Administration. Performed By: #### V AGINITIS+ #### [facility] , Neisseria Gonorrhoeae, ABRAHAN Negative Normal Negative [facility] Comment on above: Order Comment: SOURC E OF SPECIMEN: VAG Result Comment: Perf ormed at: =G - [facility] [address] [id number] Clinical Academic Allergist: Rosie Martinez MD, Phone: [phone] Performed By: #### V AGINITIS+ #### [facility] , Tric Vag ABRAHAN Negative Normal Negative [facility] Comment on above: Order Comment: SOURC E OF SPECIMEN: VAG Performed By: #### V AGINITIS+ #### [facility] , Provider Letteron 04-20-2023 Provider Letter [facility]etric[facility] Gyne[facility] Dr. Carmen Graves, D.O. [id number] [place], [place] [id number] P: [phone], F: [phone] April 20, 2023 Viral Almanzar [address] [place] [address] Re: Trudy Wilder 1975 Date of Visit: 10/29/2022 Dear Viral Lewis MD, Please send recent lab results on this mutual patient you have with our office. Thank you! Please feel free to contact our office with any questions regarding this concern. Thank you! Dominga Dorado RN, BSN [facility] RN Health Courtesy Driver/Cad Design Engineer Direct phone: [phone], Ext [phone] Normal [facility] LIPASEon 11-05-2022 Lipase [Catalytic activity/Vol] 97.0 U/L Normal 73.0-393.0 [facility] Comment on above: Performed By: #### C MP, LIPA #### [facility] [address] [address] [address] Ann Watson PROF 14(COMP METB)on 023 Albumin [Mass/Vol] 3.7 g/dL Normal 3.4-5.0 [facility] Comment on above: Performed By: #### C MP, LIPA #### [facility] [address] [address] [address] Ann Watson Albumin/Globulin [Mass ratio] 1.2 {ratio} Normal [facility] Comment on above: Performed By: #### C MP, LIPA #### [facility] [address] [address] [address] Ann Watson ALP [Catalytic activity/Vol] 87 U/L Normal 46-116 [facility] Comment on above: Performed By: #### C MP, LIPA #### [facility] [address] [address] [address] Ann Watson ALT [Catalytic activity/Vol] 14 U/L Normal 14-59 [facility] Comment on above: Performed By: #### C MP, LIPA #### [facility] [address] [address] [address] Ann Watson Anion gap [Moles/Vol] 7.6 mmol/L Normal [facility] Comment on above: Performed By: #### C MP, LIPA #### [facility] [address] [address] [address] Ann Watson AST [Catalytic activity/Vol] 12 U/L Critically low 15-37 [facility] Comment on above: Performed By: #### C MP, LIPA #### [facility] [address] [address] [address] Ann Watson Bilirubin [Mass/Vol] 0.5 mg/dL Normal 0.2-1.0 [facility] Comment on above: Performed By: #### C MP, LIPA #### [facility] [address] [address] [address] Ann Watson Calcium [Mass/Vol] 9.0 mg/dL Normal 8.5-10.1 [facility] Comment on above: Performed By: #### C MP, LIPA #### [facility] [address] [address] [address] Ann Watson Chloride [Moles/Vol] 107 mmol/L Normal 98-107 [facility] Comment on above: Performed By: #### C MP, LIPA #### [facility] [address] [address] [address] Ann Watson CO2 [Moles/Vol] 27.6 mmol/L Normal 21.0-32.0 [facility] Comment on above: Performed By: #### C MP, LIPA #### [facility] [address] [place] [address] Dr. Ann Watson Creatinine [Mass/Vol] 0.59 mg/dL Normal 0.55-1.02 [facility] Comment on above: Performed By: #### C MP, LIPA #### [facility] [address] [place] [address] Dr. Ann Watson EGFR-AF AFGHAN >60 Normal >=60 [facility] Comment on above: Performed By: #### C MP, LIPA #### [facility] [address] [place] [address] Dr. Ann Watson EGFR-NON AF AFGHAN >60 Normal >=60 [facility] Comment on above: Performed By: #### C MP, LIPA #### [facility] [address] [place] [address] Dr. Ann Watson Globulin (S) [Mass/Vol] 3.2 g/dL Normal T [facility] Comment on above: Performed By: #### C MP, LIPA #### [facility] [address] [place] [address] Dr. Ann Watson Glucose [Mass/Vol] 89 mg/dL Normal 74-106 [facility] Comment on above: Performed By: #### C MP, LIPA #### [facility] [address] [place] [address] Dr. Ann Watson Potassium [Moles/Vol] 4.2 mmol/L Normal 3.5-5.1 [facility] Comment on above: Performed By: #### C MP, LIPA #### [facility] [address] [place] [address] Dr. Ann Watson Protein [Mass/Vol] 6.9 g/dL Normal 6.4-8.2 [facility] Comment on above: Performed By: #### C MP, LIPA #### [facility] [address] [place] [address] Dr. Ann Watson Sodium [Moles/Vol] 138 mmol/L Normal 136-145 [facility] Comment on above: Performed By: #### C MP, LIPA #### [facility] [facility] [address] [place] [address] Dr. Ann Watson Urea nitrogen [Mass/Vol] 14.0 mg/dL Normal 7.0-18.0 [facility] Comment on above: Performed By: #### C MP, LIPA #### [facility] [address] [place] [address] Dr. Ann Watson Urea nitrogen/Creatinine [Mass ratio] 23.7 mg/mg Normal [facility] Comment on above: Performed By: #### C MP, LIPA #### [facility] [address] [place] [address] Dr. Ann Watson Affirm DNA Panelon 3 Mely DNA Negative Normal Negative [facility] Comment on above: Result Comment: The AffirmVPII Microbial Identification Test is a nucleic acid hybridization test for the detection of Mely species, Gardnerella vaginalis and Trichomonas vaginalis nucleic acid in the vaginal fluid specimens from patients with symptoms of vaginitis/vaginosis. A positive result for Mely, Gardnerella, and/or Trichomonas vaginalis means nucleic acid is present in the sample and indicates that the patient has candidiasis, bacterial vaginosis, and/or trichomoniasis when consistent with clinical signs and symptoms. A negative result for Mely, Gardnerella, or Trichomonas tests suggests the patient does not have candidiasis, bacterial vaginosis and/or trichomonas, respectively, when consistent with clinical signs and symptoms. Results should be interpreted in conjunction with other clinical and laboratory data available to the clinician such as pH, amine odor, and vaginal discharge characterisitics. Simultaneous infections by more than one organism are common. Performed By: #### C [id number] #### [place] [id number] Gardnerella DNA Negative Normal Negative [facility] Comment on above: Performed By: #### C [id number] #### [address] [address] Trichomonas DNA Negative Normal Negative [facility] Comment on above: Performed By: #### C [id number] #### [place] [id number] Gynecology Office/Clinic Not ramila 10-29-2022 Gynecology Office/Clinic Note Chief Complaint Annual Exam History of Present Illness Pelvic Pain: No Painful Sex: No Abnormal Vaginal Discharge: No Abnormal Vaginal Bleeding: No Vaginal Dryness: No Vaginal Itch: No Vaginal Burning: No Vaginal Odor: No Hot Flashes: No Night Sweats: No Breast Lump: No Breast Pain: No Menstrual Periods: No Sexually Active: Yes 10/27/22 16:01:00 46 y/o, , , Annual Exam, Last pap: Roe. TLH/BS on 02/04/16, Left Oophorectomy Mammogram: 12/27/21, Benign with Dense Breast Tissue PCP: Dr. Lewis Patient is doing well denies female concerns. Patient is working full-time and going to [employer]. Review of Systems Head Migraines: Yes Migraines comment: I have had more here lately, getting auras. I am having 2-3 a week and mainly at night per pt. Headaches: No Eyes Corrective Lenses: None Blurred vision: None Ears, Nose, Throat Congestion: No Vertigo: No Sore throat: No Nasal drainage: Yes Nasal drainage comment: Allergies per pt. Cardio Respiratory Peripheral edema: No Heart Irregularity: No Chest Pain: No Shortness of Breath: No Gastrointestinal Bloating: No Reflux/heartburn: No Abdominal Pain: No Change in bowel habits: No Urinary Urinary Incontinence: No Urinary frequency: No Nocturia: No Urgency: No Painful urination: No Musculoskeletal Back pain: No Muscle aches: No Joint pain: No Integumentary Lesions: No Moles: No Acne: No Hair changes: No Psycho Social Sleep Problems: No Anxiety: No Suicidal Ideation: No Homicidal Ideation: No Depression: No Hematologic/Lymphatic Lymphadenopathy: No Thromboembolism: No Bruising: No Bleeding tendencies: No Endocrine Abnormal weight gain: No Abnormal weight loss: No Fatigue: No Physical Exam Vitals & Measurements BP: 114/72 HT: 162 cm WT: 89.1 kg WT: 89.1 kg (Dosing) BMI: 33.95 General: Alert and oriented x 3. Well nourished. No acute distress. HEENT: Normocephalic. Normal hearing. Moist oral mucosa. No scleral icterus. No sinus tenderness. Neck: Supple, non-tender. Normal thyroid. No lymphadenopathy. Lungs: Clear to auscultation and percussion. Non-labored respiration. Heart: Normal rate with regular rhythm. No murmur, gallop or edema. Abdomen: Soft, non-tender, non-distended. Normal bowel sounds and no masses appreciated. Musculoskeletal: Normal range of motion and strength. No tenderness or swelling noted. Skin: Skin is warm, dry and pink. No rashes or lesions. Neurologic: CN II-XII grossly intact. Psychiatric: Cooperative. Appropriate mood and affect. Breast exam: No masses, tenderness, or skin changes. No nipple discharge. External Genitalia: Normal urethral meatus. No lesions. Vulvar skin intact. Genitourinary: Normal vaginal mucosa. No lesions or abnormal discharge. No cystocele or rectocele. Vaginal cuff intact and well supported. Bimanual exam: No adnexal tenderness or masses. Additional Vitals BP Position/Location: Sitting, Left arm Assessment/Plan 1. Encounter for gynecological examination (general) (routine) without abnormal findings Physician Comments 1. Recommend monthly self breast exam and call with any changes. 2. Recommend yearly mammogram starting at age 40 (sooner if family history). 3. Recommend colonoscopy to screen for colon cancer beginning at age 45. Gave option of Cologuard if unwilling to do colonoscopy. 4. Recommend vitamin D 1000-2000IU daily. 5. Recommend calcium either through diet (3 servings of dairy daily) or if not able to get through diet then recommend supplement 1200mg daily in divided doses. 6. Recommend healthy diet. 7. Recommend exercise 30 min 5 days weekly. Ordered: 10330 AMB Preventative EST patient; 40-64 years Medical Decision Making Chronic conditions NOT treated during this visit that affected my overall medical decision making: [] Treatment plans discussed but not opted for at this time: [] Prescribed medication that requires intensive monitoring for toxicity: [] I have reviewed the patient?s medication list for medication interactions/contrain dications and/or for upcoming procedures: [yes or no] Time Spent with the Patient I have personally spent [] minutes on this date, directly related to today's patient visit, including pre and post visit work, for this date of service. Time listed does not include time spent on separately billable services. Problem List/Past Medical History Ongoing Encounter for gynecological examination (general) (routine) without abnormal findings Skin tag Vaginal burning Historical Autoimmune hepatitis Esophagitis Procedure/Surgical History T&A (1984) HydroAblation (2009) Left Knee Meniscus Repair (2013) Roe. TLH/BS on 02/04/16, Left Oophorectomy (02/04/2016) Medications Drysol 20% topical solution, 1 marlon, Topical, HS (at bedtime), PRN, 1 refills fluticasone 50 mcg/inh nasal spray oxyCODONE-acetaminoph en 5 mg-325 (more content not included)... Normal [facility] CBC AUTO DIFFon 10-10-2022 BASO # 0.0 103/ul Normal 0.0-0.1 [facility] Comment on above: Performed By: #### C BC #### [facility] [address] [place], [place] [address] Dr. Ann Watson Basophils/100 WBC (Bld) 0.5 % Normal 0.2-2.0 [facility] Comment on above: Performed By: #### C BC #### [facility] [address] [place], [place] [address] Dr. Ann Watson EO # 0.4 103/ul Normal 0.0-0.7 [facility] Comment on above: Performed By: #### C BC #### [facility] [address] [place] [address] Dr. Ann Watson Eosinophils/100 WBC (Bld) 7.4 % Critically high 0.9-7.0 [facility] Comment on above: Performed By: #### C BC #### [facility] [address] [place] [address] Dr. Ann Watson Erythrocyte distribution width (RBC) [Ratio] 12.4 % Normal 11.0-15.0 [facility] Comment on above: Performed By: #### C BC #### [facility] [address] [place] [address] Dr. Ann Watson Hematocrit (Bld) [Volume fraction] 46.5 % Normal 36.0-48.0 [facility] Comment on above: Performed By: #### C BC #### [facility] [address] [place] [address] Dr. Ann Watson Hemoglobin (Bld) [Mass/Vol] 14.4 g/dL Normal 12.0-16.0 [facility] Comment on above: Performed By: #### C BC #### [facility] [address] [place] [address] Dr. Ann Watson IG # 0.02 10e3/ul Normal 0.00-0.03 [facility] Comment on above: Performed By: #### C BC #### [facility] [address] [place] [address] Dr. Ann Watson IG % 0.4 % Normal 0.0-0.5 [facility] Comment on above: Performed By: #### C BC #### [facility] [address] [place] [address] Dr. Ann Watson LYMPH # 2.3 103/ul Normal 1.2-3.8 [facility] Comment on above: Performed By: #### C BC #### [facility] [address] [place] [address] Dr. Ann Watson Lymphocytes/100 WBC (Bld) 42.0 % Normal 20.5-60.0 [facility] Comment on above: Performed By: #### C BC #### [facility] [address] [place] [address] Dr. Ann Watson MANUAL DIFF REQ NO Normal [facility] Comment on above: Performed By: #### C BC #### [facility] [address] [place] [address] Dr. Ann Watson MCH (RBC) [Entitic mass] 30.0 pg Normal 26.7-34.0 [facility] Comment on above: Performed By: #### C BC #### [facility] [address] [place] [address] Dr. Ann Watson MCHC (RBC) [Mass/Vol] 31.0 g/dL Normal 29.9-35.2 [facility] Comment on above: Performed By: #### C BC #### [facility] [address] [place] [address] Dr. Ann Watson MCV (RBC) [Entitic vol] 96.9 fL Normal 81.0-99.0 [facility] Comment on above: Performed By: #### C BC #### [facility] [address] [place] [address] Dr. Ann Watson MONO # 0.3 103/ul Normal 0.3-0.8 [facility] Comment on above: Performed By: #### C BC #### [facility] [address] [place] [address] Dr. Ann Watson Monocytes/100 WBC (Bld) 5.8 % Normal 1.7-12.0 [facility] Comment on above: Performed By: #### C BC #### [facility] [address] [place] [address] Dr. Ann Watson NEUT # 2.4 103/ul Normal 1.4-6.5 [facility] Comment on above: Performed By: #### C BC #### [facility] [address] [place] [address] Dr. Ann Watson Neutrophils/100 WBC (Bld) 43.9 % Normal 43.0-75.0 [facility] Comment on above: Performed By: #### C BC #### [facility] [address] [place] [address] Dr. Ann Watson Platelet mean volume (Bld) [Entitic vol] 10.9 fL Normal 9.5-13.5 [facility] Comment on above: Performed By: #### C BC #### [facility] [address] [place] [address] Dr. Ann Watson PLT 267 103/ul Normal 150-450 [facility] Comment on above: Performed By: #### C BC #### [facility] [address] [place] [address] [address] Ann Watson RBC 4.80 106/ul Normal 4.20-5.40 [facility] Comment on above: Performed By: #### C BC #### [facility] [address] [place] [address] Dr. Ann Watson WBC 5.5 103/ul Normal 4.0-11.0 [facility] Comment on above: Performed By: #### C BC #### [facility] [address] [place] [address] Dr. Ann Watson FREE T3on 10-10-2022 FREE T3 2.38 pg/mlL Normal 2.18-3.98 [facility] Comment on above: Performed By: #### F T3, TSH, LIPID, BMP #### [facility] [address] [place] [address] Dr. Ann Watson FREE T4on 10-10-2022 Free T4 [Mass/Vol] 0.84 ng/dL Normal 0.76-1.[address] [facility] Comment on above: Performed By: #### F T4 #### [facility] [address] [place] [address] Dr. Ann Watson GLYCOHEMOGLOBIN A1Con 2022 ADA RECOMMENDATION SEE BELOW Normal [facility] Comment on above: Result Comment: ADA RECOMMENDED LIMIT 4.0 - 6.0 ADA THERAPEUTIC TARGET < 7.0 ACTION SUGGESTED > 7.0 Performed By: #### A 1C #### [facility] [address] [place] [address] Dr. Ann Watson Glucose [Mass/Vol] 91 mg/dL Normal [facility] Comment on above: Performed By: #### A 1C #### [facility] [address] [place] [address] [address] Ann Watson HbA1c (Bld) [Mass fraction] 4.8 % Normal 4.5-6.2 [facility] Comment on above: Performed By: #### A 1C #### [facility] [address] [place] [address] [address] Ann Watson LIPID PROFILEon 10-10-2022 CHOL-HDL RATIO NORM SEE BELOW Normal [facility] Comment on above: Result Comment: 3.3 - 4.4 LOW RISK 4.4 - 7.1 AVERAGE RISK 7.1 - 11.0 MODERATE RISK >11.0 HIGH RISK Performed By: #### F T3, TSH, LIPID, BMP #### [facility] [address] [place] [address] [address] Ann Watson Cholesterol [Mass/Vol] 169 mg/dL Normal <=200 [facility] Comment on above: Performed By: #### F T3, TSH, LIPID, BMP #### [facility] [address] [place] [address] [address] Ann Watson Cholesterol in HDL [Mass/Vol] 52 mg/dL Normal 40-60 [facility] Comment on above: Performed By: #### F T3, TSH, LIPID, BMP #### [facility] [address] [place] [address] [address] Ann Watson Cholesterol in LDL [Mass/Vol] 99.4 mg/dL Normal [facility] Comment on above: Performed By: #### F T3, TSH, LIPID, BMP #### [facility] [address] [place] [address] [address] Ann Watson Cholesterol.total/Betty sterol in HDL [Mass ratio] 3.3 {ratio} Normal [facility] Comment on above: Performed By: #### F T3, TSH, LIPID, BMP #### [facility] [address] [place] [address] [address] Ann Watson HDL NORMAL > or = 60 mg/dl - LO W CARDIOVASCULAR RISK <40 mg/dl - HIGH CARDIOVASCULAR RISK Normal [facility] Comment on above: Performed By: #### F T3, TSH, LIPID, BMP #### [facility] [address] [place] [address] [address] Ann Watson LDL CALC NORMAL SEE BELOW Normal [facility] Comment on above: Result Comment: <100 mg/dl OPTIMAL 100 - 129 mg/dl NEAR OR ABOVE OPTIMAL 130 - 159 mg/dl BORDERLINE HIGH 160 - 189 mg/dl HIGH >190 mg/dl VERY HIGH Performed By: #### F T3, TSH, LIPID, BMP #### [facility] [address] [place] [address] [address] Ann Watson Triglyceride [Mass/Vol] 88 mg/dL Normal <=150 [facility] Comment on above: Performed By: #### F T3, TSH, LIPID, BMP #### [facility] [address] [place] [address] Dr. Ann Watson VLDL CALC 17.6 mg/dL Normal [facility] Comment on above: Performed By: #### F T3, TSH, LIPID, BMP #### [facility] [address] [place] [address] Dr. Ann Watson PROF CHEM 8 (BAS METB)on Anion gap [Moles/Vol] 11.5 mmol/L Normal [facility] Comment on above: Performed By: #### F T3, TSH, LIPID, BMP #### [facility] [address] [place] [address] Dr. Ann Watson Calcium [Mass/Vol] 8.7 mg/dL Normal 8.5-10.1 [facility] Comment on above: Performed By: #### F T3, TSH, LIPID, BMP #### [facility] [address] [place] [address] Dr. Ann Watson Chloride [Moles/Vol] 106 mmol/L Normal 98-107 [facility] Comment on above: Performed By: #### F T3, TSH, LIPID, BMP #### [facility] [address] [place] [address] Dr. Ann Watson CO2 [Moles/Vol] 27.3 mmol/L Normal 21.0-32.0 [facility] Comment on above: Performed By: #### F T3, TSH, LIPID, BMP #### [facility] [address] [place] [address] [address] Ann Watson Creatinine [Mass/Vol] 0.57 mg/dL Normal 0.55-1.02 [facility] Comment on above: Performed By: #### F T3, TSH, LIPID, BMP #### [facility] [address] [place] [address] [address] Ann Watson EGFR-AF AFGHAN >60 Normal >=60 [facility] Comment on above: Performed By: #### F T3, TSH, LIPID, BMP #### [facility] [address] [place] [address] [address] Ann Watson EGFR-NON AF AFGHAN >60 Normal >=60 [facility] Comment on above: Performed By: #### F T3, TSH, LIPID, BMP #### [facility] [address] [place] [address] [address] Ann Watson Glucose [Mass/Vol] 85 mg/dL Normal 74-106 [facility] Comment on above: Performed By: #### F T3, TSH, LIPID, BMP #### [facility] [address] [place] [address] [address] Ann Watson Potassium [Moles/Vol] 3.8 mmol/L Normal 3.5-5.1 [facility] Comment on above: Performed By: #### F T3, TSH, LIPID, BMP #### [facility] [address] [place] [address] [address] Ann Watson Sodium [Moles/Vol] 141 mmol/L Normal 136-145 [facility] Comment on above: Performed By: #### F T3, TSH, LIPID, BMP #### [facility] [address] [place] [address] [address] Ann Watson Urea nitrogen [Mass/Vol] 12.0 mg/dL Normal 7.0-18.0 [facility] Comment on above: Performed By: #### F T3, TSH, LIPID, BMP #### [facility] [address] [place] [address] [address] Ann Watson Urea nitrogen/Creatinine [Mass ratio] 21.1 mg/mg Normal [facility] Comment on above: Performed By: #### F T3, TSH, LIPID, BMP #### [facility] [address] [place] [address] [address] Ann Watson TSHon 10-10-2022 TSH 3.064 uIU/mL Normal 0.358-3.740 [facility] Comment on above: Performed By: #### F T3, TSH, LIPID, BMP #### [facility] [address] [place] [address] [address] Ann Watson JERRY Antinuclear Antibodieson 09-01-2022 Antinuclear Abs, IFA Positive Critically abnormal . [facility] Comment on above: Order Comment: Reaso n for Exam Hepatitis, autoimmune Result Comment: Nega tive <1:80 Borderline 1:80 Positive >1:80 Performed By: #### S MAB, JERRY #### [facility] , #### CMP, CBC #### [facility] [address] Note [address] Normal . [facility] Comment on above: Order Comment: Reaso n for Exam Hepatitis, autoimmune Result Comment: For more information about Hep-2 cell patterns use ANApatterns.org, the official website for the International Consensus on Antinuclear Antibody (JERRY) Patterns (ICAP). A positive JERRY result may occur in healthy individuals (low titer) or be associated with a variety of diseases. See interpretation chart which is not all inclusive: Pattern Antigen Detected Suggested Disease Association Homogeneous DNA(ds,ss), SLE - High titers Nucleosomes, Histones Drug-induced SLE Speckled Sm, MUCK HAULER, SCL-70, SLE,MCTD,PSS (diffuse form), SS-A/SS-B Sjogrens Nucleolar SCL-70, PM-1/SCL High titers Scleroderma, PM/DM Centromere Centromere PSS (limited form) w/Crest syndrome variable Nuclear Dot [id number] Primary Biliary Cirrhosis Nuclear GP210, Primary Biliary Cirrhosis Membrane cory A,B,C Performed at: - [facility] [id number] Clinical Academic Allergist: Cyrus Abbott PhD, Phone: [phone] Performed By: #### S MAB, JERRY #### [facility] , #### CMP, CBC #### [address] [address] [place] Speckled Pattern 1:80 Normal . [facility] Comment on above: Order Comment: Reaso n for Exam Hepatitis, autoimmune Result Comment: ICAP nomenclature: AC-2,4,5,29 Performed By: #### S MAB, JERRY #### [facility] , #### CMP, CBC #### [facility] [address] [place] [address] [place] Basophils Auto (Bld) [#/Vol] Ordered By: Nir Zamarripa on 09-01-2022 Basophils (Bld) [#/Vol] 0.1 10*3/uL 0.0-0.[address] [facility] Basophils/100 WBC Auto (Bld) Ordered By: Nir Zamarripa on 09-01-2022 Basophils/100 WBC (Bld) 0.7 % . [facility] Body fluid albumin measureme nt (mass/volume)Ordered By: Nir Zamarripa on 09-01-2022 Albumin (Body fld) [Mass/Vol] 3.7 g/dL 3.2-5.[address] [facility] Complete Blood Count Auto Di ffon 09-01-2022 Basophils (Bld) [#/Vol] 0.1 10*3/uL Normal 0.0-0.[address] [facility] Comment on above: Order Comment: Reaso n for Exam Hepatitis, autoimmune Result Comment: PERF ORMED BY: [place] [address] PATHOLOGIST [employer]IDE [employer] MADELINE EDGAR M.D. Performed By: #### S MAB, JERRY #### [facility] , #### CMP, CBC #### [facility] [address] [place] [address] [place] Basophils/100 WBC (Bld) 0.7 % Normal . [facility] Comment on above: Order Comment: Reaso n for Exam Hepatitis, autoimmune Performed By: #### S MAB, JERRY #### [facility] , #### CMP, CBC #### [facility] [address] [place] [address] [place] Eosinophils (Bld) [#/Vol] 0.5 10*3/uL High 0.0-0.[address] [facility] Comment on above: Order Comment: Reaso n for Exam Hepatitis, autoimmune Performed By: #### S MAB, JERRY #### [facility] , #### CMP, CBC #### [address] Eosinophils/100 WBC (Bld) 7.2 % Normal . [facility] Comment on above: Order Comment: Reaso n for Exam Hepatitis, autoimmune Performed By: #### S MAB, JERRY #### [facility] , #### CMP, CBC #### [address] Erythrocyte distribution width (RBC) [Ratio] 13.7 % Normal 11.9-15.[address] [facility] Comment on above: Order Comment: Reaso n for Exam Hepatitis, autoimmune Performed By: #### S MAB, JERRY #### [facility] , #### CMP, CBC #### [address] Hematocrit (Bld) [Volume fraction] 40.3 % Normal 34.0-46.[address] [facility] Comment on above: Order Comment: Reaso n for Exam Hepatitis, autoimmune Performed By: #### S MAB, JERRY #### [facility] , #### CMP, CBC #### [address] Hemoglobin (Bld) [Mass/Vol] 13.5 g/dL Normal 11.8-15.[address] [facility] Comment on above: Order Comment: Reaso n for Exam Hepatitis, autoimmune Performed By: #### S MAB, JERRY #### [facility] , #### CMP, CBC #### [address] Lymphocytes (Bld) [#/Vol] 2.4 10*3/uL Normal 1.00-4.[address] [facility] Comment on above: Order Comment: Reaso n for Exam Hepatitis, autoimmune Performed By: #### S MAB, JERRY #### [facility] , #### CMP, CBC #### [address] Lymphocytes/100 WBC (Bld) 33.3 % Normal . [facility] [facility] Comment on above: Order Comment: Reaso n for Exam Hepatitis, autoimmune Performed By: #### S MAB, JERRY #### [facility] , #### CMP, CBC #### [address] MCH (RBC) [Entitic mass] 30.2 pg Normal 24.7-34.[address] [facility] Comment on above: Order Comment: Reaso n for Exam Hepatitis, autoimmune Performed By: #### S MAB, JERRY #### [facility] , #### CMP, CBC #### [address] MCV (RBC) [Entitic vol] 90.6 fL Normal 80-100 F [facility] Comment on above: Order Comment: Reaso n for Exam Hepatitis, autoimmune Performed By: #### S MAB, JERRY #### [facility] , #### CMP, CBC #### [address] Mean Corpuscular HGB Conc 33.4 g/dL Normal 32.0-35.[address] [facility] Comment on above: Order Comment: Reaso n for Exam Hepatitis, autoimmune Performed By: #### S MAB, JERRY #### [facility] , #### CMP, CBC #### [facility] [address] [place] [address] [place] Monocytes (Bld) [#/Vol] 0.5 10*3/uL Normal 0.0-0.[address] [facility] Comment on above: Order Comment: Reaso n for Exam Hepatitis, autoimmune Performed By: #### S MAB, JERRY #### [facility] , #### CMP, CBC #### [place] [address] [place] Monocytes/100 WBC (Bld) 6.5 % Normal . [facility] Comment on above: Order Comment: Reaso n for Exam Hepatitis, autoimmune Performed By: #### S MAB, JERRY #### [facility] , #### CMP, CBC #### [place] [address] [place] Neutrophils (Bld) [#/Vol] 3.8 10*3/uL Normal 1.8-7.[address] [facility] Comment on above: Order Comment: Reaso n for Exam Hepatitis, autoimmune Performed By: #### S MAB, JERRY #### [facility] , #### CMP, CBC #### [place] [address] [place] Neutrophils/100 WBC (Bld) 52.3 % Normal . [facility] Comment on above: Order Comment: Reaso n for Exam Hepatitis, autoimmune Performed By: #### S MAB, JERRY #### [facility] , #### CMP, CBC #### [place] [address] [place] NRBC% 0.1 /100{WBC} Normal 0-0.[address] [facility] Comment on above: Order Comment: Reaso n for Exam Hepatitis, autoimmune Performed By: #### S MAB, JERRY #### [facility] , #### CMP, CBC #### [place] [address] [place] Platelet mean volume (Bld) [Entitic vol] 8.5 fL Normal 6.3-10.[address] [facility] Comment on above: Order Comment: Reaso n for Exam Hepatitis, autoimmune Performed By: #### S MAB, JERRY #### [facility] , #### CMP, CBC #### [facility] [address] [place] [address] [place] Platelets (Bld) [#/Vol] 270 10*3/uL Normal 150-[address] [facility] Comment on above: Order Comment: Reaso n for Exam Hepatitis, autoimmune Performed By: #### S MAB, JERRY #### [facility] , #### CMP, CBC #### [facility] [address] RBC (Bld) [#/Vol] 4.45 10*6/uL Normal 3.60-5.00 [facility] Comment on above: Order Comment: Reaso n for Exam Hepatitis, autoimmune Performed By: #### S MAB, JERRY #### [facility] , #### CMP, CBC #### [facility] [address] WBC (Bld) [#/Vol] 7.3 10*3/uL Normal 3.8-11.6 [facility] Comment on above: Order Comment: Reaso n for Exam Hepatitis, autoimmune Performed By: #### S MAB, JERRY #### [facility] , #### CMP, CBC #### [facility] [address] [place] [address] [place] Basophils (Bld) [#/Vol] 0.777629470 10*3/uL Normal 0.0-0.2 10*3/uL [email or web address] Other Basophils/100 WBC (Bld) 0.700 % . % N [employer] Other Eosinophils (Bld) [#/Vol] 0.752821754 10*3/uL High 0.0-0.45 10*3/uL [email or web address] Other Eosinophils/100 WBC (Bld) 7.200 % . % [email or web address] Other Erythrocyte distribution width (RBC) [Ratio] 13.700 % Normal 11.9-15.3 % [email or web address] Other Hematocrit (Bld) [Volume fraction] 40.300 % Normal 34.0-46.4 % [email or web address] Other Hemoglobin (Bld) [Mass/Vol] 13.339951 g/dL Normal 11.8-15.4 g/dL [email or web address] Other Lymphocytes (Bld) [#/Vol] 2.361316462 10*3/uL Normal 1.00-4.8 10*3/uL [email or web address] Other Lymphocytes/100 WBC (Bld) 33.300 % . % [email or web address] Other MCH (RBC) [Entitic mass] 30.2000 pg Normal 24.7-34.3 pg [email or web address] Other MCV (RBC) [Entitic vol] 90.6000 fL Normal 80-100 fL N [facility] [employer] Other Monocytes (Bld) [#/Vol] 0.151175267 10*3/uL Normal 0.0-0.8 10*3/uL [email or web address] Other Monocytes/100 WBC (Bld) 6.500 % . % [facility] [employer] Other Neutrophils (Bld) [#/Vol] 3.495588571 10*3/uL Normal 1.8-7.7 10*3/uL [email or web address] Other Neutrophils/100 WBC (Bld) 52.300 % . % [facility] [employer] Other Platelet mean volume (Bld) [Entitic vol] 8.5000 fL Normal 6.3-10.7 fL [email or web address] Other WBC (Bld) [#/Vol] 7.052738587 10*3/uL Normal 3.8 -11.6 10*3/uL [email or web address] Other Complete Blood Count Auto Diff 7.3 10*3/uL Normal 3.8-11.6 10*3/uL [email or web address] Other Complete Blood Count Auto Diff 33.4 g/dL Normal 32.0-35.0 g/dL R17 [facility] [employer] Other Complete Blood Count Auto Diff 0.1 /100{WBC} Normal 0-0.5 /100{WBC} [facility] [employer] Other Comprehensive Metabolic Pane sp 09-01-2022 Albumin [Mass/Vol] 3.7 g/dL Normal 3.2-5.5 [facility] Comment on above: Order Comment: Reaso n for Exam Hepatitis, autoimmune Performed By: #### S MAB, JERRY #### [facility] , #### CMP, CBC #### [facility] [address] [place] [address] Albumin/Globulin [Mass ratio] 1.7 {ratio} Normal [facility] Comment on above: Order Comment: Reaso n for Exam Hepatitis, autoimmune Performed By: #### S MAB, JERRY #### [facility] , #### CMP, CBC #### [facility] [address] [place] [address] ALP [Catalytic activity/Vol] 64 U/L Normal 32-[address] [facility] Comment on above: Order Comment: Reaso n for Exam Hepatitis, autoimmune Result Comment: PERF ORMED BY: [place] [address] PATHOLOGIST INSIDE METER TESTER MADELINE EDGAR M.D. Performed By: #### S MAB, JERRY #### [facility] , #### CMP, CBC #### [facility] [address] [place] [address] [place] ALT [Catalytic activity/Vol] 14 U/L Normal 10-60 [facility] [employer] Other Comment on above: Order Comment: Reaso n for Exam Hepatitis, autoimmune Performed By: #### S MAB, JERRY #### [facility] , #### CMP, CBC #### [facility] [address] [place] [address] [place] Anion gap [Moles/Vol] 8.5 mmol/L Normal 6.0-15.0 [facility] Comment on above: Order Comment: Reaso n for Exam Hepatitis, autoimmune Performed By: #### S MAB, JERRY #### [facility] , #### CMP, CBC #### [facility] [address] AST [Catalytic activity/Vol] 16 U/L Normal 10-[address] [facility] Comment on above: Order Comment: Reaso n for Exam Hepatitis, autoimmune Performed By: #### S MAB, JERRY #### [facility] , #### CMP, CBC #### [facility] [address] [place] [address] Bilirubin [Mass/Vol] 0.5 mg/dL Normal 0.3-1.2 [facility] Comment on above: Order Comment: Reaso n for Exam Hepatitis, autoimmune Performed By: #### S MAB, JERRY #### [facility] , #### CMP, CBC #### [facility] [address] [place] [address] Calcium [Mass/Vol] 9.1 mg/dL Normal 8.2-10.2 [facility] Comment on above: Order Comment: Reaso n for Exam Hepatitis, autoimmune Performed By: #### S MAB, JERRY #### [facility] , #### CMP, CBC #### [facility] [address] [place] [address] [place] Chloride [Moles/Vol] 106 mmol/L Normal 95-114 [facility] Comment on above: Order Comment: Reaso n for Exam Hepatitis, autoimmune Performed By: #### S MAB, JERRY #### [facility] , #### CMP, CBC #### [facility] [address] [place] [address] [place] CO2 [Moles/Vol] 24.6 mmol/L Normal 22.0-30.0 [facility] Comment on above: Order Comment: Reaso n for Exam Hepatitis, autoimmune Performed By: #### S MAB, JERRY #### [facility] , #### CMP, CBC #### [facility] [address] [place] [address] Creatinine [Mass/Vol] 0.64 mg/dL Normal 0.44-1.03 [facility] Comment on above: Order Comment: Reaso n for Exam Hepatitis, autoimmune Performed By: #### S MAB, JERRY #### [facility] , #### CMP, CBC #### [address] Estimated GFR ( Amalia > [address] [facility] Comment on above: Order Comment: Reaso n for Exam Hepatitis, autoimmune Result Comment: GFR estimated reference range: According to KDOQI guidelines, <60 ml/min/1.73m2 is sufficient to diagnose a patient with chronic kidney disease. Performed By: #### S MAB, JERRY #### [facility] , #### CMP, CBC #### [address] Estimated GFR (Non- Am > 60 [facility] Comment on above: Order Comment: Reaso n for Exam Hepatitis, autoimmune Performed By: #### S MAB, JERRY #### [facility] , #### CMP, CBC #### [facility] [address] [place] [address] Globulin (S) [Mass/Vol] 2.2 g/dL Normal [facility] Comment on above: Order Comment: Reaso n for Exam Hepatitis, autoimmune Performed By: #### S MAB, JERRY #### [facility] , #### CMP, CBC #### [facility] [address] [place] [address] Glucose [Mass/Vol] 80 mg/dL Normal 70-100 [facility] Comment on above: Order Comment: Reaso n for Exam Hepatitis, autoimmune Result Comment: [place] om Glucose Reference Range is dependent on time and content of last meal. Glucose of more than 200 mg/dL in a nonstressed, ambulatory subject supports the diagnosis of Diabetes Mellitus. ADA recommended reference range Performed By: #### S MAB, JERRY #### [facility] , #### CMP, CBC #### [facility] [address] [place] [address] [place] Potassium [Moles/Vol] 4.1 mmol/L Normal 3.5-5.1 [facility] Comment on above: Order Comment: Reaso n for Exam Hepatitis, autoimmune Performed By: #### S MAB, JERRY #### [facility] , #### CMP, CBC #### [address] Protein [Mass/Vol] 5.9 g/dL Low 6.1-7.9 [facility] Comment on above: Order Comment: Reaso n for Exam Hepatitis, autoimmune Performed By: #### S MAB, JERRY #### [facility] , #### CMP, CBC #### [place] [address] [place] Sodium [Moles/Vol] 135 mmol/L Low 136-146 [facility] Comment on above: Order Comment: Reaso n for Exam Hepatitis, autoimmune Performed By: #### S MAB, JERRY #### [facility] , #### CMP, CBC #### [facility] [address] [place] [address] [place] Urea nitrogen [Mass/Vol] 9 mg/dL Normal 9-[address] [facility] Comment on above: Order Comment: Reaso n for Exam Hepatitis, autoimmune Performed By: #### S MAB, JERRY #### [facility] , #### CMP, CBC #### [facility] [address] [place] [address] [place] Albumin [Mass/Vol] 3.660572 g/dL Normal 3.2-5.5 g/dL [email or web address] Other Bilirubin [Mass/Vol] 0.1985807 mg/dL Normal 0.3- 1.2 mg/dL [email or web address] Other Calcium [Mass/Vol] 9.3452788 mg/dL Normal 8.2-10 .2 mg/dL [email or web address] Other CO2 [Moles/Vol] 24.17275712 mmol/L Normal 22.0-3 0.0 mmol/L [email or web address] Other Creatinine [Mass/Vol] 0.37630000 mg/dL Normal 0. 44-1.03 mg/dL [email or web address] Other Potassium [Moles/Vol] 4.00004277 mmol/L Normal 3 .5-5.1 mmol/L [email or web address] Other Protein [Mass/Vol] 5.589736 g/dL Low 6.1-7.9 g/dL [email or web address] Other Comprehensive Metabolic Panel > 60 [email or web address] Other Comprehensive Metabolic Panel 2.2 g/dL [email or web address] Other Creatinine and Glomerular fi ltration rate.predicted panel (S/P/Bld)Ordered By: Nir Zamarripa on 09-01-2022 Creatinine [Mass/Vol] 0.64 mg/dL 0.44-1.03 [facility] Eosinophils Auto (Bld) [#/Vo l]Ordered By: Nir Zamarripa on 09-01-2022 Eosinophils (Bld) [#/Vol] 0.5 10*3/uL 0.0-0.[address] [facility] Eosinophils/100 WBC Auto (Bl d)Ordered By: Nir Zamarripa on 09-01-2022 Eosinophils/100 WBC (Bld) 7.2 % . [facility] Erythrocyte distribution wid th Auto (RBC) [Ratio]Ordered By: Nir Zamarripa on 09-01-2022 Erythrocyte distribution width (RBC) [Ratio] 13.7 % 11.9-15.[address] [facility] Erythrocytes [#/volume] in B lood by Automated countOrdered By: Nir Zamarripa on 09-01-2022 RBC (Bld) [#/Vol] 4.45 10*6/uL Normal 3.60-5.00 [facility] Estimated glomerular filtrat ion rate (GFR) non- AmericanOrdered By: Nir Zamarripa on 09-01-2022 GFR/1.73 sq M.predicted among non-blacks MDRD (S/P/Bld) [Vol rate/Area] > 60 mL/Min [facility] Globulin Calc (S) [Mass/Vol] Ordered By: Nir Zamarripa on 09-01-2022 Globulin (S) [Mass/Vol] 2.2 g/dL F [facility] Hematocrit Auto (Bld) [Volum e fraction]Ordered By: Nir Zamarripa on 09-01-2022 Hematocrit (Bld) [Volume fraction] 40.3 % 34.0-46.[address] [facility] Hemoglobin [Mass/volume] in BloodOrdered By: Nir Zamarripa on 09-01-2022 Hemoglobin (Bld) [Mass/Vol] 13.5 g/dL 11.8-15.[address] [facility] Leukocytes [#/volume] correc kofi for nucleated erythrocytes in Blood by Automated counOrdered By: Nir Zamarripa on 09-01-2022 WBC corrected for nucl RBC Auto (Bld) [#/Vol] 7.3 10*3/uL 3.8-11.[address] [facility] Lymphocytes Auto (Bld) [#/Vo l]Ordered By: Nir Zamarripa on 09-01-2022 Lymphocytes (Bld) [#/Vol] 2.4 10*3/uL 1.00-4.[address] [facility] Lymphocytes/100 WBC Auto (Bl d)Ordered By: Nir Zamarripa on 09-01-2022 Lymphocytes/100 WBC (Bld) 33.3 % . [facility] MCH Auto (RBC) [Entitic mass ]Ordered By: Nir Zamarripa on 09-01-2022 MCH (RBC) [Entitic mass] 30.2 pg 24.7-34.[address] [facility] MCHC Auto (RBC) [Mass/Vol]Or dered By: Nir Zamarripa on 09-01-2022 MCHC (RBC) [Mass/Vol] 33.4 g/dL 32.0-35.0 [facility] MCV Auto (RBC) [Entitic vol] Ordered By: Nir Zamarripa on 09-01-2022 MCV (RBC) [Entitic vol] 90.6 fL 80-100 F [facility] Monocytes Auto (Bld) [#/Vol] Ordered By: Nir Zamarripa on 09-01-2022 Monocytes (Bld) [#/Vol] 0.5 10*3/uL 0.0-0.[address] [facility] Monocytes/100 WBC Auto (Bld) Ordered By: Nir Zamarripa on 09-01-2022 Monocytes/100 WBC (Bld) 6.5 % . F [facility] Neutrophils Auto (Bld) [#/Vo l]Ordered By: Nir Zamarripa on 09-01-2022 Neutrophils (Bld) [#/Vol] 3.8 10*3/uL 1.8-7.[address] [facility] Neutrophils/100 WBC Auto (Bl d)Ordered By: Nir Zamarripa on 09-01-2022 Neutrophils/100 WBC (Bld) 52.3 % . [facility] No Panel InformationOrdered By: Nir Zamarripa on 09-01-2022 Estimated GFR () > 60 mL/Min [facility] Comment on above: GFR estimated refere nce range: According to KDOQI guidelines, <60 ml/min/1.73m2 is sufficient to diagnose a patient with chronic kidney disease. Pharmacy Creatinine Clearance (Chem N/A [facility] Nucleated erythrocytes [Pres ence] in Blood by Automated countOrdered By: Nir Zamarripa on 09-01-2022 Nucleated RBC Auto Ql (Bld) 0.1 /100{WBC} 0-0.[address] [facility] Platelet mean volume Auto (B ld) [Entitic vol]Ordered By: Nir Zamarripa on 09-01-2022 Platelet mean volume (Bld) [Entitic vol] 8.5 fL 6.3-10.[address] [facility] Platelets [#/volume] in Bloo d by Automated countOrdered By: Nir Zamarripa on 09-01-2022 Platelets (Bld) [#/Vol] 270 10*3/uL Normal 150- 450 10*3/uL [facility] Protein [Mass/volume] in Ser um or PlasmaOrdered By: Nir Zamarripa on 09-01-2022 Protein [Mass/Vol] 5.9 g/dL 6.1-7.9 [facility] Serum or plasma alanine martines otransferase measurement without P-5'-P (enzymatic activiOrdered By: Nir Zamarripa on 09-01-2022 ALT No additional P-5'-P [Catalytic activity/Vol] 14 U/L 10-[address] [facility] Serum or plasma albumin/glob ulin mass ratioOrdered By: Nir Zamarripa on 09-01-2022 Albumin/Globulin [Mass ratio] 1.7 {ratio} [facility] Serum or plasma alkaline jessica sphatase measurement (enzymatic activity/volume)Ordered By: Nir Zamarripa on 09-01-2022 ALP [Catalytic activity/Vol] 64 U/L Normal 32-92 U/L [facility] Serum or plasma anion gap de terminationOrdered By: Nir Zamarripa on 09-01-2022 Anion gap [Moles/Vol] 8.5 mmol/L 6.0-15.0 [facility] Serum or plasma aspartate am inotransferase measurement (enzymatic activity/volume)Ordered By: Nir Zamarripa on 09-01-2022 AST [Catalytic activity/Vol] 16 U/L Normal 10-42 U/L [facility] Serum or plasma calcium sven urement (mass/volume)Ordered By: Nir Zamarripa on 09-01-2022 Calcium [Mass/Vol] 9.1 mg/dL 8.2-10.2 [facility] Serum or plasma chloride capri surement (moles/volume)Ordered By: Nir Zamarripa on 09-01-2022 Chloride [Moles/Vol] 106 mmol/L Normal 95-114 mmol/L [facility] Serum or plasma glucose sven urement (mass/volume)Ordered By: Nir Zamarripa on 09-01-2022 Glucose [Mass/Vol] 80 mg/dL Normal 70-100 mg/dL [facility] Comment on above: ADA recommended refe rence rangeRandom Glucose Reference Range is dependent on time and content of last meal. Glucose of more than 200 mg/dL in a nonstressed, ambulatory subject supports the diagnosis of Diabetes Mellitus. Serum or plasma potassium me asurement (moles/volume)Ordered By: Nir Zamarripa on 09-01-2022 Potassium [Moles/Vol] 4.1 mmol/L 3.5-5.1 [facility] Serum or plasma sodium measu rement (moles/volume)Ordered By: Nir Zamarripa on 09-01-2022 Sodium [Moles/Vol] 135 mmol/L Low 136-146 mmol/L [facility] Serum or plasma total biliru bin measurement (mass/volume)Ordered By: Nir Zamarripa on 09-01-2022 Bilirubin [Mass/Vol] 0.5 mg/dL 0.3-1.2 [facility] Serum or plasma total carbon dioxide measurement (moles/volume)Ordered By: Nir Zamarripa on 09-01-2022 CO2 [Moles/Vol] 24.6 mmol/L 22.0-30.0 [facility] Serum or plasma urea nitroge n measurement (mass/volume)Ordered By: Nir Zamarripa on 09-01-2022 Urea nitrogen [Mass/Vol] 9 mg/dL Normal 9-23 mg/dL [facility] Smooth Muscle Antibodyon Smooth Muscle Antibody 17 Normal 0-19 [facility] Comment on above: Order Comment: Reaso n for Exam Hepatitis, autoimmune Result Comment: Nega tive 0 - 19 Weak positive 20 - 30 Moderate to strong positive >30 Actin Antibodies are found in 52-85% of patients with autoimmune hepatitis or chronic active hepatitis and in 22% of patients with primary biliary cirrhosis. Performed at: - [facility] [id number] Clinical Academic Allergist: Cyrus Abbott PhD, Phone: [phone] PERFORMED BY: [place] [address] PATHOLOGIST INSIDE METER TESTER MADELINE EDGAR M.D. Performed By: #### S MAB, JERRY #### [facility] , #### CMP, CBC #### [address] Smooth Muscle Antibody 17 0-19 No [facility] [employer] Other WBC Auto (Bld) [#/Vol]Ordere d By: Nir Zamarripa on 09-01-2022 WBC (Bld) [#/Vol] 7.3 10*3/uL 3.8-11.6 [facility] XR CHEST 2 Von 01-20-2022 XR CHEST 2 V EXAM: XR CHEST 2 V HISTORY: Disorder of respiratory system EXAM: XR CHEST 2 V INDICATION: 46 years old Female Disorder of respiratory system COMPARISON: None. FINDINGS: The cardiac silhouette is normal. There is no pulmonary edema. The lungs are clear. There is no pneumonia. There is no pneumothorax. There is no abnormal foreign body. IMPRESSION: There is no acute abnormality. Electronically authenticated by: SALOMÓN CERVANTES Date: 2022-01-20 12:59 Normal [facility] Discharge Planning [id number] 10-30-2019 Discharge Planning Note2 Discharge Planning: Anticipated Discharge [id number] Assessment: Discharge Planning Assessment [id number] Stated Reason for Admissionseizures(1) [place] (1) Lives Withsignificant other; adult child(kristofer)(1) Living Arrangements[place](1) Resource/Environmenta l Concernsnon(1) Anticipated Transition [place](1) Services Anticipated at Transitionnon(1) Nursing Checklist: Lines/Cathetersremove d/appropriate for next level of care Discharge Med Rec Reconciled with eMARyes Patient has Prescriptionsno prescriptions needed DME equipment orderedN/A Transportation for Discharge Confirmedyes Follow up Reviewedyes Discharge Instructions Reviewed WithPatient and Family Member Discharge Instructions Outcomeverbalize recall/understanding County InvolvementN/A Discharge Instructions Review Completed with Patient/Family (diet, activity, pt instructions)yes Discharge Documentation: Discharge/Transfer Date/[id number] 13:32 Discharge Modeambulatory Discharged Accompanied Byfamily member Transportation Methodprivate car Valuables/Medications /Belongings Returnedyes Security Envelope ReturnedN/A Final DispositionHome Electronic Signatures: Purnima Pritchett (RASHAUN) (Signed 30-Oct-2019 13:33) Authored: Discharge Planning Note2 Last Updated: 30-Oct-2019 13:33 by Purnima Pritchett (RASHAUN) References: 1. Data Referenced From Patient Profile - Adult v2 28-Oct-2019 10:36 Normal [facility] Discharge [id number] Discharge Profile2 Discharge Orders: Anticipated Discharge Date: Anticipated Discharge [id number] Hospital Providers: Provider RoleProvider Name Amberly Fay DNAR: DNAR Statusnone Activity: activity as tolerated. May shower. Diet: Dietresume normal diet Epilepsy/Seizure: Seizure Instructions: Seizure Instruct1: Please keep a seizure/event diary (including seizure/event triggers) and bring it with you to your next outpatient appointment. Seizure Instruct2: Please practice good sleep hygiene, including maintaining a regular sleep and wake time, not watching television or using electronic devices in bed, not working in bed, and sleeping in a dark environment. Seizure Instruct3: Please observe seizure precautions to ensure safety: Do Not drive, Do Not operate heavy machinery, Do Not swim unsupervised, shower rather than bathe, be cautious with hot or heavy objects, do not perform any activities at heights such as on a ladder, and be cautious during any activity that could cause you bodily harm should you have a seizure during it. Seizure Instruct4: Please call the Epilepsy Clinic at should you have any follow up questions after discharge from the hospital. Hospital Course (Home Care/Gold Form): Hospital Course: Hospital Course: include significant abnormal lab values Reason for Admission: Characterizing Spells Antiepileptic Drugs (AEDs) and Drug Levels at Time of Admission: None Number of Events Recorded: Clinical Description (Semiology) of Each Unique Event Recorded: No spells captured EEG Results: Indicate if Epileptiform or Non-Epileptiform Interictal: Normal EEG with no epileptic discharges Details of AED Changes During this Admission: None AEDs at Time of Discharge from EMU: None Event Classification at Time of Discharge: Event Type: Epileptogenic Zone: Semiology: Lateralizing Signs: Etiology: Related Medical Conditions: Discharge Diagnosis/Impression and Plan: No event captured during Hospitalization . AED are not indicated for now We arrange follow up With Reminder: Important Follow-Up to Include Epilepsy Clinic appointment Dr. Fabián Beltrán Provider FINAL REVIEW of Orders: Final Review: Final Review of Medication Reconciliation and Orders Completedby Physician Reviewing Dick Xie MD (Resident) at 30-Oct-2019 12:16:13 Appointments: Follow-Up Appointment 01: Physician/Dept/Clark Beltrán [facility] Call to Schedule in4 weeks Scheduled Date/[id number] 16:30 CommentsOrder received after discharge Electronic Signatures: Virgil Xie (Resident)) (Signed 30-Oct-2019 12:16) Authored: Discharge Orders, Epilepsy/Seizure, Hospital Course (Home Care/Gold Form), Provider FINAL REVIEW of Orders, Appointments, Gold Form - Scientific Aide Summary Halle Nails (PT ACC REP) (Signed 31-Oct-2019 10:49) Authored: Epilepsy/Seizure, Appointments Last Updated: 31-Oct-2019 10:49 by Halle Nails (PT ACC REP) Normal [facility] Daily Progress Note-Epilepsy on 10-29-2019 Daily Progress Note-Epilepsy Service: Epilepsy Subjective Data: 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 Overnight Events: Patient had an uneventful night. Objective Data: Objective Information: T PRBPSpO2 [id number] % Date/Time10/29 8:152 8:15215 8:152 8:152 8:15 Range(36.1C - 36.2C ) (65 - 76 ) (16 - 16 ) (116 - 124 )/ (74 - 78 ) (96% - 98% ) Pain reported at 2 8:15: 0 = None Gen: NAD, alert and oriented CV: RRR. nl S1 and S2, no m/r/g Resp: CTAB. no increased work of breathing. no rales, rhonchi or wheezing Abd: soft, nontender, nondistended Mental status: A&Ox3. Follows simple commands. Language intact to naming, comprehension and repetition. CN: PERRL 3 mm. EOM full range. VFF. Muscles of facial expression intact. Facial sensation intact bilaterally Motor: LUE with 5/5 strength. RUE 5/5 strength. RLE 5/5 and LLE 5/5 with 5/5 in distal PF and DF Sensory: Normal sensation to LT bilaterally. Medication: Medications: Continuous Medications No continuous medications are active Scheduled Medications 1. Enoxaparin SubCutaneous: 40 mg SubCutaneous Every 24 Hours PRN Medications 1. Acetaminophen: 650 mg Oral Every 4 Hours 2. LORazepam Injectable: 2 mg IntraVenous Push Every 2 Minutes Recent Lab Results: Results: I have reviewed these laboratory results: Complete Blood Count + Differential 28-Oct-2019 15:50:00 ResultValue White Blood Cell Count 7.9 Nucleated Erythrocyte Count 0.0 Red Blood Cell Count 4.60 HGB 13.9 HCT 41.4 MCV 90 MCHC 33.6 PLT 254 RDW-CV 13.1 Neutrophil % 54.5 Immature Granulocytes % 0.4 Lymphocyte % 31.2 Monocyte % 7.5 Eosinophil % 5.9 Basophil % 0.5 Neutrophil Count 4.29 Lymphocyte Count 2.45 Monocyte Count 0.59 Eosinophil Count 0.46 Basophil Count 0.04 Comprehensive Metabolic Panel 28-Oct-2019 15:50:00 ResultValue Glucose, Serum 77 NA 142 K 3.7 CL 108 H Bicarbonate, Serum 27 Anion Gap, Serum 11 BUN 8 CREAT 0.55 GFR-Non >60 GFR- >60 Calcium, Serum 9.4 ALB 4.2 ALKP 73 T Pro 6.3 L T Bili 0.5 Alanine Aminotransferase, Serum 8 Aspartate Transaminase, Serum 11 Assessment and Plan: Admitting Dx: Aura: Entered Date: 29-Oct-2019 13:58 Additional Dx: Seizure: Entered Date: 27-Oct-2019 13:53 Assessment: ======== Classification of Paroxysmal Episodes ======== 1. Diagnosis: Epileptogenic Zone: Episode Type: 1. 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 Lateralizing Sign: Etiology: ======== Current Video/EEG ======== No known Video/EEG Finding ======== Impression and Plan ======== Evolution in last 24 hours: No acute events in the past 24 hours. Subjective: No new complaints. She is anxious to know what the evaluation would be. Objective: No change in admission neuro exam. 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 So far no events recorded. She is not on any home AEDs. Plans: 1. Continue vEEG monitoring. 2. Fall and seizure precautions. 3. Ativan per protocol. 4. Sleep deprivation tonight until 3:AM ======== Medication Table ======== No known medications. ======== Seizure Onset Table ======== No known seizure onsets. Signature/Cosignature /Attestation: Note Completion: I am a: Resident/Fellow Attending AttestationI saw and evaluated the patient. I personally obtained the [place] and critical portions of the history and physical exam or was physically present for [place] and critical portions performed by the resident/fellow. I reviewed the resident/fellows documentation and discussed the patient with the resident/fellow. I agree with the resident/fellows medical decision making as documented in the note. I personally evaluated the patient [id number] Electronic Signatures: Amberly Pressley) (Signed 10-Nov-2019 15:05) Authored: Signature/Cosignature /Attestation Co-Signer: Service, Subjective Data, Objective Data, Assessment and Plan, Signature/Cosignature /Attestation Liane Charles (Fellow)) (Signed 29-Oct-2019 16:37) Authored: Service, Subjective Data, Objective Data, Assessment and Plan, Signature/Cosignature /Attestation Last Updated: 10-Nov-2019 15:05 by Amberly Pressley) Normal [facility] Admission Risk Screen - Adul ton 10-28-2019 Admission Risk Screen - Adult Allergies: Allergies: Phenergan: Unknown doxycycline: Unknown sulfa drugs: Unknown contrast (specific type unknown): Unknown Patient Verification: New W ID Band Applied in my Departmentno Type of ID Patient is WearingW wristband, but not applied here Patient Transferred from Other Facility ([facility], [facility],etc)no Patient Identity Verified Bypatient ID Band FULL Name, include Middle, spelling matches patient's ID used for verificationyes ID Band Matches Patient ID used for Verficationyes ID Band MRN Matches EMR MRNyes Advance Directive: Advance Directive/DNRno Advance Directive Information Givenpatient/family declined Falls Screen: Type of Assessmentadmission High Risk Factorsnursing judgment (specify) Risk for Injury Associated with Fallnone Fall Risk Conclusionhigh falls risk with low risk for associated injury [place] Safety InterventionsWDL *orient to call system *instruct to call for assistance before getting out of bed *non-slip footwear when patient is out of bed *call [place] in reach *personal items and telephone in reach *physically safe environment (no spills or clutter) *bed in lowest position with wheels locked *appropriate side rails in place *room/bathroom lighting operational, light cord in reach *appropriate signage on door Family Violence Screen: Are you or have you been threatened or abused physically, emotionally, or sexually by anyoneno Do you feel UNSAFE going back to the place where you are livingno Clinical assessment: Are there any apparent signs of injuries/behaviors that could be related to abuse/neglectno Social Service Consult for abuse/neglect needed this visitno Functional Screen: Functional Screen: In the recent/past 2-4 weeks, patient or family have noticedno issues that require a speech/language consult at this time AM-PAC- Basic Mobility/Daily Activity: Patient baseline bedboundno Learning Assessment (Patient): Patient is Able to be Assessed for Learningyes Factors Influencing Readiness to Learnacuteness of illness Factors that Impact Ability to Learnnone Devices/Methods Used to Communicatenone Learning Preferencesverbal instruction Cultural Considerationsnone Developmental Considerationsnone Scientology Considerationsnone Learning Assessment (Other Learner): Other learner availableno Suicide/Depression Screen: During the past month, have you often been bothered by feeling down, depressed or hopelessno During the past month, have you often had little interest or pleasure in doing thingsno Have you had any thoughts of harming yourselfno Have you had any thoughts of harming anyone elseno Adult Nutrition Screen: Have you recently lost weight without tryingno Have you been eating poorly because of a decreased appetiteno Malnutrition Screening Tool Score0 Malnutrition Screening Tool RiskMST = 0 or 1 Not at risk. Eating well with little or no weight loss Nutrition Consult needed this visitno Can Patient Participate in Room Serviceyes Patient requires Paper Dishes/Plastic Utensilsno Pain Screen: Pain Scalenumerical 0-10 Pain Scale Educationteaching provided Current Pain Level0 = None Acceptable Pain Level0 = None Expression of Pain (nonverbal)verbalizat ion Chronic Painno Spiritual Screen: Are there any cultural, spiritual, pentecostalism practices/values/need s that are important for us to knowno CAGE: Is this an injured patient at a Trauma Center ([facility]/[place]): no Vaccinations: Vaccination - Influenza Vaccination Screen: Is it flu season (between and January 11)Yes Screening for identified contraindications to influenza vaccination patient/caregiver refusal Vaccination - Pneumonia Vaccination Screen: Patient has received a previous pneumonia vaccine:no/unknown... Immunocompetent persons with underlying chronic conditions or reside in terminal press operator care facilitieschronic liver disease, including cirrhosis Persons with Functional or Anatomic Asplenianone of these conditions Immunocompromised Personsnone of these conditions Pneumonia vaccine NOT indicated due to:patient/caregiver refusal at this time Matty: Skin - Matty Scale: Matty: Sensory Perception (response to environment)(4) no impairment Matty: Moisture (degree skin exposed to moisture)(4) rarely moist Matty: Activity (ability to walk)(4) walks frequently Matty: Mobility (amount/control of body movement)(4) no limitation Matty: Nutrition (quality of food intake)(4) excellent Matty: Friction and Shear(3) no apparent problem Matty: Score23 Significant Indicatiors: Significant Indicators: Complete Pressure Injury: Pressure Injury Present on Admissionno Electronic Signatures: Samara Sanchez (HUSSAIN) (Signed 28-Oct-2019 11:33) Authored: Admission Risk Screens, Vaccinations, Matty, Pressure Injury Last Updated: 28-Oct-2019 11:33 by Samara Sanchez (HUSSAIN) Normal [facility] CBC AND DIFFERENTIALon 10-28 % AUTOMATED IMMATURE GRAN 0.4 % Normal 0.0 - 0.9 [facility] Comment on above: Result Comment: Perc ent differential counts (%) should be interpreted in the context of the absolute cell counts (cells/L). Performed By: #### C BCDF #### [facility] [address] [place] [address] Basophils (Bld) [#/Vol] 0.04 10*3/uL Normal 0.00 - 0.1 0 [facility] Comment on above: Performed By: #### C BCDF #### [facility] [address] [place] [address] Basophils/100 WBC (Bld) 0.5 % Normal 0.0 - 2.0 [facility] Comment on above: Performed By: #### C BCDF #### [facility] [address] [place] [address] Eosinophils (Bld) [#/Vol] 0.46 10*3/uL Normal 0.00 - 0.70 [facility] Comment on above: Performed By: #### C BCDF #### [facility] [address] [place] [address] Eosinophils/100 WBC (Bld) 5.9 % Normal 0.0 - 6.0 [facility] Comment on above: Performed By: #### C BCDF #### [facility] [address] [place] [address] Erythrocyte distribution width (RBC) [Ratio] 13.1 % Normal 11.5 - 14.5 [facility] Comment on above: Performed By: #### C BCDF #### [facility] [address] [place] [address] Hematocrit (Bld) [Volume fraction] 41.4 % Normal 36.0 - 46.0 [facility] Comment on above: Performed By: #### C BCDF #### [facility] [address] [place] [address] Hemoglobin (Bld) [Mass/Vol] 13.9 g/dL Normal 12.0 - 16.0 [facility] Comment on above: Performed By: #### C BCDF #### [facility] [address] [place] [address] Lymphocytes (Bld) [#/Vol] 2.45 10*3/uL Normal 1.20 - 4.80 [facility] Comment on above: Performed By: #### C BCDF #### [facility] [address] [place] [address] Lymphocytes/100 WBC (Bld) 31.2 % Normal 13.0 - 44.0 [facility] Comment on above: Performed By: #### C BCDF #### [facility] [address] [place] [address] MCHC (RBC) [Mass/Vol] 33.6 g/dL Normal 32.0 - 36.0 [facility] Comment on above: Performed By: #### C BCDF #### [facility] [address] [place] [address] MCV (RBC) [Entitic vol] 90 fL Normal 80 - 100 [facility] Comment on above: Performed By: #### C BCDF #### [facility] [address] [place] [address] Monocytes (Bld) [#/Vol] 0.59 10*3/uL Normal 0.10 - 1.0 0 [facility] Comment on above: Performed By: #### C BCDF #### [facility] [address] [place] [address] Monocytes/100 WBC (Bld) 7.5 % Normal 2.0 - 10.0 [facility] Comment on above: Performed By: #### C BCDF #### [facility] [address] [place] [address] Neutrophils (Bld) [#/Vol] 4.29 10*3/uL Normal 1.20 - 7.70 [facility] Comment on above: Performed By: #### C BCDF #### [facility] [address] [place] [address] Neutrophils/100 WBC (Bld) 54.5 % Normal 40.0 - 80.0 [facility] Comment on above: Performed By: #### C BCDF #### [facility] [address] [place] [address] Nucleated RBC/100 WBC (Bld) [Ratio] 0.0 /100 WBC Normal 0.0-0.0 [facility] Comment on above: Performed By: #### C BCDF #### [facility] [address] [place] [address] Platelets (Bld) [#/Vol] 254 10*3/uL Normal 150 - 450 [facility] Comment on above: Performed By: #### C BCDF #### [facility] [address] [place] [address] RBC (Bld) [#/Vol] 4.60 x10E12/L Normal 4.00 - 5.20 [facility] Comment on above: Performed By: #### C BCDF #### [facility] [address] [place] [address] WBC (Bld) [#/Vol] 7.9 10*3/uL Normal 4.4 - 11.3 [facility] Comment on above: Performed By: #### C BCDF #### [facility] [address] [place] [address] COMPREHENSIVE PANELon 2019 Albumin [Mass/Vol] 4.2 g/dL Normal 3.4 - 5.0 [facility] Comment on above: Performed By: #### C MP #### [facility] [address] [place] [address] ALP [Catalytic activity/Vol] 73 U/L Normal 33 - 110 [facility] Comment on above: Performed By: #### C MP #### [facility] [address] [place] [address] ALT [Catalytic activity/Vol] 8 U/L Normal 7 - 45 [facility] Comment on above: Result Comment: Tabatha ents treated with Sulfasalazine may generate falsely decreased results for ALT. Performed By: #### C MP #### [facility] [address] [place] [address] Anion gap [Moles/Vol] 11 mmol/L Normal 10 - 20 [facility] Comment on above: Performed By: #### C MP #### [facility] [address] [place] [address] AST [Catalytic activity/Vol] 11 U/L Normal 9 - 39 [facility] Comment on above: Performed By: #### C MP #### [facility] [address] [place] [address] Bilirubin [Mass/Vol] 0.5 mg/dL Normal 0.0 - 1.2 [facility] Comment on above: Performed By: #### C MP #### [facility] [address] [place] [address] Calcium [Mass/Vol] 9.4 mg/dL Normal 8.6 - 10.6 [facility] Comment on above: Performed By: #### C MP #### [facility] [address] [place] [address] Chloride [Moles/Vol] 108 mmol/L High 98 - 107 [facility] Comment on above: Performed By: #### C MP #### [facility] [address] [place] [address] Creatinine [Mass/Vol] 0.55 mg/dL Normal 0.50 - 1.05 [facility] Comment on above: Performed By: #### C MP #### [facility] [address] [place] [address] GFR- AM. >60 Normal >60 [facility] Comment on above: Result Comment: CALC ULATIONS OF ESTIMATED GFR ARE PERFORMED USING THE MDRD STUDY EQUATION FOR THE IDMS-TRACEABLE CREATININE METHODS. CLIN CHEM 2007;53:766-72 Performed By: #### C MP #### [facility] [address] [place] [address] GFR-NON AM. >60 Normal >60 [facility] Comment on above: Performed By: #### C MP #### [facility] [address] [place] [address] Glucose [Mass/Vol] 77 mg/dL Normal 74 - 99 [facility] Comment on above: Performed By: #### C MP #### [facility] [address] [place] [address] HCO3 (Bld) [Moles/Vol] 27 mmol/L Normal 21 - 32 [facility] Comment on above: Performed By: #### C MP #### [facility] [address] [place] [address] Potassium [Moles/Vol] 3.7 mmol/L Normal 3.5 - 5.3 [facility] Comment on above: Performed By: #### C MP #### [facility] [address] [place] [address] Protein [Mass/Vol] 6.3 g/dL Low 6.4 - 8.2 [facility] Comment on above: Performed By: #### C MP #### [facility] [address] [place] [address] Sodium [Moles/Vol] 142 mmol/L Normal 136 - 145 [facility] Comment on above: Performed By: #### C MP #### [facility] [address] [place] [address] Urea nitrogen [Mass/Vol] 8 mg/dL Normal 6 - 23 [facility] Comment on above: Performed By: #### C MP #### [facility] [address] [place] [address] History and Physical - Neuro -Epilepsyon 10-28-2019 History and Physical - Neuro-Epilepsy History of Present Illness: /Lactating: Are You no (1) Are You Currently Breastfeedingno (1) Service: Service: Epilepsy History Present Illness: Admission Reason: EMU admission HPI: REASON FOR THE VISIT: EMU admission HISTORY OF PRESENT ILLNESS: Epileptologist: Dr. Beltrán Ms. Yates is a 43 YO LH woman with PMH of paroxysmal episode concerning for seizure, presenting today for EMU admission. Patient was last seen by Dr. Beltrán on 10/03/2019. EPISODE HISTORY (derived from previous epilepsy outpatient note and patient interview): PAROXYSMAL Episodes: Unknown Semiology: 1. Right face/body somatosensory aura episode - Onset: 2011 - Frequency: vary from many times a day to 2-3x/mo. Etiology: Unknown Comorbidities: Migraines Prior AEDs: Lamotrigine, levetiracetam, topiramate Current AEDs: N/A In 2011, patient started having episodes of a weird feeling, difficult to explain but not paresthesia, numbness, or burning. She retains all function of speech and motor activity, conscious and continue going about her usual business without difficulty. She thinks sometimes her right eye looks droopy. These episodes last a couple seconds, and can cluster to about 30-40 times a day, clustering often (few days every few weeks). She states she also had instances of a sensation coming over her whole body (starting from head to toes), though not as frequently. The patient first sought treatment at [facility] ([place]), who performed an EEG and told her that she had something wrong with [her] left lower lobe. Denies any muscle twitching or clonic movements. Remained conscious throughout the episode. Denies any other signs suspicious for seizures such as stiffening, shaking, staring off, gumming/chewing mouth movements, picking movements, loss of continence, tongue biting, or waking up with unexpected soreness. She was tried on multiple different AEDs (levetiracetam, lamotrigine), with no improvement and marked side effects. She went off medications, though did not have any symptoms until 2018, when they returned. On their return, this resurgence was characterized as transient right eye ptosis (denies twitching), and hemibody sensory tingling. Denied speech difficulties. She also notes a feeling of dizziness as if she is listing to the right. Denies vertigo (room-spinning), or lightheadedness. This is the case all of the time, though she is able to function. For her dizziness, shed had a scopolamine patch, which made her symptoms worse. Of note patient also has migraines with visual aura consisting of a transient right homonymous hemianopsia and wavy vision on her both peripheral visual field. She will sometimes also get a little white spot in her visual field, though is unable to say which side. Also has nausea and vomiting. These auras will last about 30 minutes, and then either resolve, or go into a headache. Due to recurrent symptoms she presented to [facility] and had CT which she was told was unremarkable. She was seen by Neurology (Elias Hirsch) and started on amitriptyline for headaches and advised to keep a headache diary. This has helped a little bit, though she has not increased the dose to the intended 30mg dose due to fear of it being too much. She didn't take amitriptyline at this time. MRI brain was ordered to assess for seizure focus versus demyelinating disease. She had a routine EEG in February 2018 ([facility]), which described a normal EEG with good background, but occasionally featured sharply contoured waves though did not give location. Epilepsy risk factors - Born at term by after uneventful , with no known complications at . - Normal developmental milestones - No history of febrile convulsion or DENTAL APPLIANCE MECHANIC infections. - No family history of epilepsy. - No history of major head trauma with loss of consciousness. - No history of DENTAL APPLIANCE MECHANIC surgery. REVIEW OF SYSTEMS: 14 system review negative except for mentioned above. 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 Objective Information: Objective Information: T PRBPSpO2 [id number] 0% Date/Time10/28 11: 11: 11: 11: 11:00 Range(36.5C - 36.5C ) (80 - 80 ) (16 - 16 ) (120 - 120 )/ (80 - 80 ) (100% - 100% ) Pain reported at 10/28 11:00: 0 = None General Neurology: General Neurology Extensive Exam: GENERAL APPEARANCE: No distress, alert, interactive and cooperative. CARDIOVASCULAR: Regular, rate and rhythm, no murmurs, normal S1 and S2. NEUROLOGICAL EXAMINATION: MENTAL STATUS: - Alert and Oriented to time, place and person. - Attention span and concentration were normal, followed simple and complex commands. - Remote and recent memory were intact - Language function was normal for comprehension, repetition, expression, and naming. - Calculation was intact for 100-7, 93-7 - Normal fund of knowledge. OPHTHALMOSCOPIC: The opthalmoscopic exam was untestable due to miosis. CRANIAL NERVES: CN2 - VA OD 20/20 OS 20/20. Visual Solis Full to confrontation. CN3,4,6 - Pupils round, 3 mm in diameter, equally reactive to light. Lids symmetric; no ptosis. EOM is full and normal alignment. No nystagmus. Normal Smooth pursuit. CN5 - Facial sensation intact in V1-3 bilat. CN7 - eyebrow raise, eye closing, smile, and frown symmetric bilat, no NLF flattening. CN8 - Hearing intact to finger rub CN9,10 - palate elevation is midline. No dysarthria. CN11 - Shoulder Shrug and SCM muscle strength 5/5 bilat CN12 - Tongue midline, with normal bulk and strength 5/5; no fasciculations. MOTOR: Bulk - Normal Tone - Normal Involuntary Movements - No tremor, bradykinesia, chorea, or dystonia Pronator drift - absent Muscle strength was 5/5 in distal and proximal muscles in both upper and lower extremities. REFLEXES: DTR normal (2 all joints). No clonus. R L Biceps 2 2 Triceps 2 2 Brachioradialis 2 2 Knees 2 2 Ankles 2 2 BBK down down SENSORY: - Intact to light touch all 4 extremities. COORDINATION: - Ktedie-Vfke-Bgwvnk: intact without dysmetria or overshoot in both upper extremities. - Heel to [place]: intact in both lower extremities GAIT: - Unable to test due to vEEG monitoring. Medications: Medications: Continuous Medications No continuous medications are active Scheduled Medications 1. Enoxaparin SubCutaneous: 40 mg SubCutaneous Every 24 Hours PRN Medications 1. Acetaminophen: 650 mg Oral Every 4 Hours 2. LORazepam Injectable: 2 mg IntraVenous Push Every 2 Minutes Assessment and Plan: Assessment: Ms. Yates is a 43 YO LH woman with PMH of paroxysmal episode concerning for seizure, presenting today for EMU admission. Patient was last seen by Dr. Beltrán on 10/03/2019. Paroxysmal Episodes: Unknown Semiology: 1. Right face/body somatosensory aura episode - Onset: 2011 - Frequency: vary from many times a day to 2-3x/mo. Etiology: Unknown Comorbidities: Migraines Prior AEDs: Lamotrigine, levetiracetam, topiramate Current AEDs: N/A Plan - EMU admission - vEEG monitoring - Ativan 2 mg IV for prolonged motor seizure lasting more than 3 minutes or a cluster of 3 or more motor seizures in an 8 hour period. - No AED at this time F None E As needed N Regular diet DVT Enoxaparin subcutaneous Full Code Signatures/Attestatio n/Certification: Note Completion: I am a: Resident/Fellow Attending AttestationI saw and evaluated the patient. I personally obtained the [place] and critical portions of the history and physical exam or was physically present for [place] and critical portions performed by the resident/fellow. I reviewed the resident/fellows documentation and discussed the patient with the resident/fellow. I agree with the resident/fellows medical decision making as documented in the note. I personally evaluated the patient [id number] Attending Provider Inpatient Certification StatementI certify this patients need for inpatient care based on the above documentation including; the order to admit as inpatient, the anticipated length of stay, diagnosis, problem list and plan of care, and discharge plan. Admission Order - View OnlyCurrent Admission Order. Admit to Inpatient Adult [facility] Admitting Diagnosis, R56.9 Seizure Admitting Service, Neurology Level of Care, Telemetry EMU admission Alvaro Freeman Electronic Signatures: Amberly Pressley) (Signed 10-Nov-2019 15:01) Authored: Medications Prior to Admission, Signatures/Attestatio n/Certification Co-Signer: History of Present Illness, Objective, Assessment and Plan, Signatures/Attestatio n/Certification Alvaro Freeman (Resident)) (Signed 28-Oct-2019 13:56) Authored: History of Present Illness, Comorbidities, Allergies, Medications Prior to Admission, Objective, Assessment and Plan, Signatures/Attestatio n/Certification Last Updated: 10-Nov-2019 15:01 by Amberly Pressley) References: 1. Data Referenced From Patient Profile - Adult v2 28-Oct-2019 10:36 Normal [facility] Patient Profile - Adult v2on 10-28-2019 Patient Profile - Adult v2 Profile: Initial Info: How to be Addressedjill Spoken Language PreferredEnglish Are you currently using the Personal Electronic Health Record or Vigiglobe Stated Reason for Admissionseizures Wants Family/Rep Notified of Admissionn/a; family present Notify PCPdo not notify PCP Informed of Patient Visiting Rightsyes Arrived From[place] Patient Belongingsremains with patient Medications Brought to Hospitalno General Health: Weight in kg86.6 kilogram(s) Weight in ufd713 pound(s) Height in feet5 feet Height in inches3 inch(es) Height in cm160 centimeter(s) BMI (kg/m2)33.828 square meter Weight Methodstated Scale Typebed Height Methodstated [facility] Based Care: How would you like to participate in your careindependent What is the number one concern for you during this hospitalizationwant to have an event What is the most important thing we can do to support you during this hospitalizationkeep me updated Is there anything we need to know to best care for youno Substance: Current or Former Substance Use never: Cigarette/Tobacco, e-Cigarette/Vaping, Alcohol, Street Drugs Health Mgmt: Symptoms/Conditions Managed at Homeneurological Are You Currently Breastfeedingno Neurological Managementnot managed Are You no Relationship/Environ: Primary Source of Support/Comfortchild( kristofer) Lives Withsignificant other; adult child(kristofer) Living Arrangementshouse Resource/Environmenta l Concernsnone Anticipated Transition [place] Services Anticipated at Transitionnone Significant IndicatorsComplete Information Review: Allergies, Home Meds and Significant Events have been Reviewed and Verified with Patient/Familyyes ALLERGY, INTOLERANCE, ADVERSE EVENT: Allergies: Phenergan: Drug, Unknown, Active doxycycline: Drug, Unknown, Active sulfa drugs: Drug Category, Unknown, Active Electronic Signatures: Samara Sanchez (HUSSAIN) (Signed 28-Oct-2019 11:37) Authored: Profile, Additional Information Miguel A Rico (RASHAUN) (Signed 28-Oct-2019 10:37) Authored: Profile, Additional Information Last Updated: 28-Oct-2019 11:37 by Samara Sanchez (HUSSAIN) Normal [facility] Chart Updateon 10-25-2019 Chart Update Active Problems Chronic headaches (784.0) (R51) Classic migraine with aura (346.00) (G43.109) Common migraine without aura (346.10) (G43.009) Facial numbness (782.0) (R20.0) Hemisensory deficit (781.99) (R29.818) Nonspecific paroxysmal spell (780.09) (R40.4) Sensory disturbance (782.0) (R20.9) Spell of dizziness (780.4) (R42) Chart Update Progress Note Free Text_UH: Supplemental records obtained from [facility]. Pertinent summary below: 01/18/2018 Presented to [facility] ED with numbness of the right side of her face lasting 3-4 days, with profound numbness to the right of her eye and the right of her nose, along with transient right arm numbness. . Reportedly had URI symptoms in the prior week. Did have history of headaches but did not have headache or head trauma. Reported history of seizures, though apparently not on meds. Neuroexam normal. CT head was normal. Unclear diagnosis but discharged on ASA 81mg for paresthesias. 02/17/2018 Presented to [facility] ED with right-sided facial numbness and drooping, right arm and leg feeling funny, and migraines. Underwent MRI brain w/wo, MRA, and MRV, all of which were normal, with exception of inability to visualized right vertebral artery in the posterior fossa. Routine EEG revealed sharply contoured waves, raising suspicion for mechanism for seizure generation and due to being somewhat inconclusive this patient may benefit from prolonged EEG monitoring. 12/07/2018 Presented to [facility] ED with multiple vague complaints of dizziness (no vertigo), funny feeling on the right side of her face (worse when standing up). Reported a history of seizures but an intolerance for levetiracetam. Denied headache, neck stiffness. No other symptoms. Exam was normal. CT head was unremarkable. Advised to increase fluid increase fluids and was discharged home. 02/01/2019 Presented to [facility] ED with palpitations and arrhythmia, feeling like her heart was skipping beats. Denied any nausea, SOB, CP. No recent illness. No fevers, chills, diarrhea, abdominal pain. Would occur several times a minute initially, then became less frequent. Observed to have PVCs on exam. Discharged home with Holter (unknown if had placed). 06/12/2019 Presented to [facility] ED with nausea, vomiting, and diarrhea. Reported using multiple scopolamine patches (5 patches in 6 days, Rxd for 1 patch every 3 days; reported more given getting wet while scuba-diving). Noted she felt nauseated with blurred vision, dry mouth, urinary frequency, and warm/heavy feeling in her body. No confusion, agitation, or hallucinations. [place] to be dehydrated. Given fluids and discharged. 06/14/2019 Presented to [facility] ED with severe nausea, vomiting, dizziness, lightheadedness, blurry vision, diarrhea, and headache. Had recently removed a scopolamine patch after a cruise to the [facility]. Stated also her seizures are acting up, which she relayed were focal, left-sided seizures that cant be seen. Not on AEDs, but reported seeing a neurologist at [facility]. Exam was unremarkable, though noted to be anxious and tearful. CT head was normal. Given Flagyl 500mg PO (c/f GI illness after recent trip) and discharged home. 07/19/2019 Presented to [facility] ED with dizziness. Stated she thinks she has seizures that no one can see, or migraine with aura. Had been going on for a month. Denied spinning sensation. Symptoms described as constant. Denied N/V, falls, feeling off balance. Neuro exam noted to be normal. CTH obtained which was reportedly normal. She was discharged following improvement of symptoms after fluids, ondansetron, ketorolac, and diphenhydramine. In review of these records, will continue with previous plan as determined during 10/03/2019 visit. Alvino Beltrán MD [facility] Pager: [phone] Signatures Electronically signed by : Didier Beltrán MD; Oct 25 2019 1:55PM EST (Author) [facility] Vital Signs Date Time Vital Sign Value Performing Clinician Facility 10-15-2023 14:51-0500 Body height 160 cm Shaikh Jose ADAM Work Phone: [facility] 10-15-2023 14:51-0500 Body mass index (BMI) [Ratio] 38.09 kg/m2 Shaikh Jose ADAM Work Phone: [facility] 10-15-2023 14:51-0500 Body temperature 96.91 [degF] Shaikh Jose ADAM Work Phone: [facility] 10-15-2023 14:51-0500 Body weight 97.52 kg Shaikh Jose ADAM Work Phone: [facility] [employer] 10-15-2023 14:51-0500 Diastolic blood pressure 80 mm[Hg] Shaikh Jose ADAM Work Phone: [facility] 10-15-2023 14:51-0500 Heart rate 79 /min Shaikh Jose ADAM Work Phone: [facility] 10-15-2023 14:51-0500 SaO2% (BldA) [Mass fraction] 96 % Shaikh Jose ADAM Work Phone: [facility] 10-15-2023 14:51-0500 Systolic blood pressure 100 mm[Hg] Shaikh Jose ADAM Work Phone: [facility] 04-30-2023 15:00-0400 Body height 160.02 cm Faina [employer] Other [email or web address] Other 04-30-2023 15:00-0400 Body mass index (BMI) [Ratio] 36.1 kg/m2 [employer] Other [email or web address] Other 04-30-2023 15:00-0400 Body temperature 98 [degF] Faina Miller Other [email or web address] Other 04-30-2023 15:00-0400 Body weight 92.44 kg Faina Miller Other [email or web address] Other 04-30-2023 15:00-0400 Diastolic blood pressure 76 mm[Hg] Faina Miller Other [email or web address] Other 04-30-2023 15:00-0400 Respiratory rate 18 /min Faina Miller Other [email or web address] Other 04-30-2023 15:00-0400 SaO2% (BldA) [Mass fraction] 99 % Faina Miller Other [email or web address] Other 04-30-2023 15:00-0400 Systolic blood pressure 122 mm[Hg] Faina Miller Other [email or web address] Other 12-16-2021 16:30-0400 Body height 160.02 cm Nir Dallin Other [email or web address] Other 12-16-2021 16:30-0400 Body mass index (BMI) [Ratio] 31.35 kg/m2 Nir Dallin Other [email or web address] Other 12-16-2021 16:30-0400 Body weight 80.29 kg Nir Dallin Other [email or web address] Other 10-23-2021 15:55-0500 Body height 160.02 cm Ellie Viridiana Other [email or web address] Other 10-23-2021 15:55-0500 Body mass index (BMI) [Ratio] 31.35 kg/m2 Ellie Viridiana Other [email or web address] Other 10-23-2021 15:55-0500 Body temperature 97.9 [degF] Ellie Viridiana Other [email or web address] Other 10-23-2021 15:55-0500 Body weight 80.29 kg Ellie Viridiana Other [email or web address] Other 10-23-2021 15:55-0500 Diastolic blood pressure 90 mm[Hg] Ellie Kemp Other [email or web address] Other 10-23-2021 15:55-0500 Respiratory rate 18 /min Ellie Kemp Other [email or web address] Other 10-23-2021 15:55-0500 SaO2% (BldA) [Mass fraction] 99 % Ellie Kemp Other [email or web address] Other 10-23-2021 15:55-0500 Systolic blood pressure 143 mm[Hg] Ellie Kemp Other [email or web address] Other 09-24-2021 15:00-0500 Body height 160.02 cm Nir Dallin Other [email or web address] Other 09-24-2021 15:00-0500 Body mass index (BMI) [Ratio] 29.23 kg/m2 Nir Dallin Other [email or web address] Other 09-24-2021 15:00-0500 Body weight 74.84 kg Nir Hickeyack Other [email or web address] Other Encounters Encounter Date Encounter Type Care Provider Facility Start: 10-15-2023 End: 10-15-2023 ambulatory SHAIKH JOSE Not Available Start: 10-15-2023 End: 10-15-2023 Office outpatient visit 25 minutes Shaikh Jose ADAM Work Phone: [facility] Comment on above: Bilateral lower extr emity edema (Primary Dx); Screening for hyperlipidemia; Screening for diabetes mellitus; Autoimmune hepatitis treated with steroids (CMS/HCC) Start: 10-15-2023 Cee Garcia MD Work Phone: [facility] Start: 10-15-2023 Cee Garcia MD Work Phone: [facility] Start: 10-15-2023 Clinisync Result Encounter Shaikh Jose ADAM Work Phone: [facility] Unsolicited Start: 09-25-2023 End: 09-25-2023 ambulatory BREE BENITEZ Not Available Start: 08-31-2023 End: 08-31-2023 ambulatory YARELIS MALIK Not Available Start: 08-27-2023 End: 08-28-2023 ambulatory Viral Lewis MD Facility:[facility] Start: 05-05-2023 End: 05-05-2023 ambulatory Faina Miller Other [facility] [employer] Other Start: 05-05-2023 Telephone encounter Faina Miller [facility] [address] Start: 04-30-2023 End: 04-30-2023 Departed [employer] Faina Miller Work Phone: [facility] Work Phone: Start: 04-30-2023 End: 04-30-2023 ambulatory Faina Miller [facility] [employer] Other Start: 04-30-2023 Office outpatient visit 15 minutes Faina Miller [facility] Start: 01-13-2023 End: 01-14-2023 ambulatory Viral Lewis MD Facility:[facility] Start: 11-05-2022 End: 11-06-2022 ambulatory SHAIKH Vivian GARCIA Facility:[facility] Start: 10-29-2022 End: 10-30-2022 ambulatory Viral Lewis MD Facility:[facility] Start: 10-14-2022 Encounter for genera l adult medical examination without abnormal findings DR VIRAL LEWIS [facility] Start: 10-10-2022 End: 10-11-[address] VIRAL LEWIS Facility:[facility] Start: 10-10-2022 End: 10-11-2022 Encounter for general adult medical examination without abnormal findings DR VIRAL LEWIS Facility: Start: 09-03-2022 End: 09-03-2022 ambulatory Nir Zamarripa Other [email or web address] Other Start: 09-03-2022 Telephone encounter Nir vogel [facility] Start: 09-01-2022 End: 09-01-2022 ambulatory Viral Lewis Facility:[facility] Start: 09-01-2022 End: 09-01-2022 Patient encounter procedure MD Viral Lewis Work Phone: [facility] [place] Start: 09-01-2022 End: 09-01-2022 ambulatory MD Viral Lewis Work Phone: [facility] Work Phone: Start: 09-01-2022 Telephone encounter Nir vogel [facility] Start: 01-20-2022 End: 01-21-2022 ambulatory SHAIKH Vivian GARCIA Facility: Start: 12-16-2021 End: 12-16-2021 ambulatory Nir Zamarripa Other [email or web address] Other Start: 12-16-2021 Patient encounter procedure Nir Zamarripa [facility] Start: 10-23-2021 End: 10-23-2021 ambulatory Ellie Kemp Other [email or web address] Other Start: 10-23-2021 Office outpatient visit 15 minutes Ellie Kemp [facility] Start: 10-21-2021 End: 10-21-2021 ambulatory Nir Zamarripa Other [email or web address] Other Start: 10-21-2021 Telephone encounter Nir vogel [facility] Start: 10-11-2021 End: 10-11-2021 ambulatory Nir Zamarripa Other [email or web address] Other Start: 10-11-2021 Telephone encounter Nir vogel [facility] Start: 09-24-2021 End: 09-24-2021 ambulatory Nir Zamarripa Other [facility] [employer] Other Start: 09-24-2021 Office outpatient visit 15 minutes Nir [facility] Start: 02-14-2020 Patient encounter procedure Elian Buczek DU-Kveshtxqi-Rzjn[facility] [employer] Work Phone: Start: 10-03-2019 Patient encounter procedure Elian Buc[facility] [address] [employer] Work Phone: Start: 05-04-2018 Patient encounter procedure Elian Buczek [facility] [address] [employer] Work Phone: Start: 03-05-2018 Patient encounter procedure Elian Buczek [facility] [address] [employer] Work Phone: Procedures Date Procedure Procedure Detail Performing Clinician Start: 10-15-2023 ALL CBC WITH AUTO DIFF Shaikh Jose ADAM Work Phone: Start: 01-13-2023 Mammography Shaikh Efrain crowell MD Work Phone: Start: 03-20-2020 Follow-up visit Start: 02-14-2020 Follow-up visit Start: 10-03-2019 Follow-up visit Plan of Treatment Date Care Activity Detail Author Start: 01-14-2024 Screening for malignant neoplasm of breast Mammogram [facility] Start: 12-10-2023 ambulatory Ambulatory Facility:[facility] Start: 10-15-2023 End: 10-15-2023 Patient encounter procedure 10/15/2023 2:45 PM EST Office Visit [facility] [address] [place] [id number] Shaikh Garcia MD [address] [place] [id number] Arrived [facility] Comment on above: Arrived Start: 10-15-2023 End: 10-15-2024 CBC W Auto Differential panel - Blood CBC and differential Lab Routine Bilateral lower extremity edema Autoimmune hepatitis treated with steroids (CMS/HCC) Expected: 10/15/2023 (Approximate), Expires: 10/15/2024 [facility] Comment on above: Expected: 10/15/2023 (Approximate), Expires: 10/15/2024 Start: 10-15-2023 End: 10-15-2024 Comprehensive metabolic 2000 panel - Serum or Plasma Comprehensive metabolic panel Lab Routine Bilateral lower extremity edema Autoimmune hepatitis treated with steroids (CMS/HCC) Expected: 10/15/2023 (Approximate), Expires: 10/15/2024 [facility] Comment on above: Expected: 10/15/2023 (Approximate), Expires: 10/15/2024 Start: 10-15-2023 End: 10-15-2024 Creatinine [Mass/volume] in Urine Creatinine, urine, random Lab Routine Bilateral lower extremity edema Expected: 10/15/2023 (Approximate), Expires: 10/15/2024 [facility] Comment on above: Expected: 10/15/2023 (Approximate), Expires: 10/15/2024 Start: 10-15-2023 End: 10-15-2024 Hemoglobin A1c measurement Hemoglobin A1c Lab Routine Screening for diabetes mellitus Expected: 10/15/2023 (Approximate), Expires: 10/15/2024 [facility] Comment on above: Expected: 10/15/2023 (Approximate), Expires: 10/15/2024 Start: 10-15-2023 End: 10-15-2024 Lipid 1996 panel - Serum or Plasma Lipid panel Lab Routine Screening for hyperlipidemia Expected: 10/15/2023 (Approximate), Expires: 10/15/2024 [facility] Comment on above: Expected: 10/15/2023 (Approximate), Expires: 10/15/2024 Start: 10-15-2023 End: 10-15-2024 Protein, urine, random Protein, urine, random Lab Routine Bilateral lower extremity edema Expected: 10/15/2023 (Approximate), Expires: 10/15/2024 [facility] Comment on above: Expected: 10/15/2023 (Approximate), Expires: 10/15/2024 Start: 10-15-2023 End: 10-15-2024 Vascular US lower extremity venous insufficiency bilateral Vascular US lower extremity venous insufficiency bilateral Imaging Routine Bilateral lower extremity edema Expected: 10/15/2023, Expires: 10/15/2024 [facility] Work Phone: Comment on above: Expected: 10/15/2023 , Expires: 10/15/2024 Start: 04-30-[address] [facility] Start: 2007 Screening for malignant neoplasm of cervix [facility] Start: 1998 Screening for malignant neoplasm of cervix Pap Smear [facility] Start: 1977 Screening for malignant neoplasm of colon [facility] Actin smooth muscle IgG Ab [Units/volume] in Serum [facility] Work Phone: Atopobium vaginae DN A [Presence] in Vaginal fluid by ABRAHAN with probe detection [facility] Bacterial vaginosis associated bacterium 2 DNA [Presence] in Vaginal fluid by ABRAHAN with probe detection [facility] Homogenous nuclear A b pattern [Titer] in Serum [facility] Work Phone: Megasphaera sp type 1 DNA [Presence] in Vaginal fluid by ABRAHAN with probe detection [facility] Nuclear Ab [Titer] i n Serum [facility] Work Phone: EO-Dcufgllbf-Wo agri [facility] [address] [employer] Work Phone: NEGATED: Highlighted row has been ruled out! Planned Goals not documented GX-Fwpeltrjf-Tuwtbp [facility] [address] [employer] Work Phone: Immunizations Immunization Date Immunization Notes Care Provider [facility] 04-24-2023 Influenza, injectabl e, Madin [place] Canine Kidney, preservative free, quadrivalent Shaikh Jose ADAM Work Phone: [facility] 03-09-2023 tetanus toxoid, redu chris diphtheria toxoid, and acellular pertussis vaccine, adsorbed Shaikh Jose ADAM Work Phone: [facility] 05-05-1983 diphtheria, tetanus toxoids and acellular pertussis vaccine Shaikh Jose ADAM Work Phone: [facility] 05-05-1983 poliovirus vaccine, inactivated Shaikh Jose ADAM Work Phone: [facility] 06-26-1979 diphtheria, tetanus toxoids and acellular pertussis vaccine Shaikh Jose ADAM Work Phone: [facility] 06-26-1979 poliovirus vaccine, inactivated Shaikh Jose ADAM Work Phone: [facility] 04-15-1979 measles, mumps and rubella virus vaccine Shaikh Jose ADAM Work Phone: [facility] 07-14-1978 diphtheria, tetanus toxoids and acellular pertussis vaccine Shaikh Jose ADAM Work Phone: [facility] 07-14-1978 poliovirus vaccine, inactivated Shaikh Jose ADAM Work Phone: [facility] 05-07-1978 diphtheria, tetanus toxoids and acellular pertussis vaccine Shaikh Jose ADAM Work Phone: [facility] 05-07-1978 poliovirus vaccine, inactivated Shaikh Jose ADAM Work Phone: [facility] 02-26-1978 diphtheria, tetanus toxoids and acellular pertussis vaccine Shaikh Jose ADAM Work Phone: [facility] 02-26-1978 poliovirus vaccine, inactivated Shaikh Jose ADAM Work Phone: [facility] Payers Date Payer Category Payer Self-pay [id number] 2021 Unknown 1977 Unknown [id number] 2.16.84 [id number] 1977 Unknown [id number] [id number] 1977 Unknown [id number] 2.16.84 [id number] 1977 Unknown [id number] 2.16. [id number] 1977 Unknown [id number] 2.16. [id number] 1977 Unknown [id number] 2.16. [id number] 1977 Unknown [id number] 2.16. [id number] 1977 Unknown [id number] 2.16. [id number] 1977 Unknown [id number] 2.16.84 0.1.144255.3.579.2.1259 1977 Unknown [id number] 2.16.84 [id number] 1977 Unknown [id number] 2.16.840 .[id number] 1957 [facility] [id number] Unknown [id number] 2.16.8 [id number] Unknown [id number] 2.16.8 [id number] Social History Date Type Detail Facility Start: 09-25-2023 End: 10-15-2023 Sex Assigned At [email or web address] Other Start: 07-19-2019 End: 04-07-2023 Tobacco smoking status DCIS Never smoked tobacco (finding) [facility] Start: 1975 Sex Assigned At Female [facility] Start: 04-07-2023 Tobacco use and exposure Smokeless tobacco non-user [facility] Start: 09-25-2023 End: 10-15-2023 Alcohol intake Lifetime non-drinker (finding) [facility] Start: 09-25-2023 End: 10-15-2023 History of Social function [facility] Start: 08-25-2023 Alcohol Comment Caffeine: soda [facility] Start: 1975 Sex Assigned At Not on file [facility] NEGATED: Highlighted row - - [facility] [address] [employer] Work Phone: Functional Status Date Assessment Result Facility NEGATED: Highlighted row Functional performance Functional status health issues are not documented Disease [facility] [address] Work Phone: Mental Status Date Assessment Result Facility NEGATED: Highlighted row Cognitive function [Interpretation] Cognitive status health issues are not documented Disease [facility] [address] Work Phone: Clinical Notes 09-24-2021 to 10-15-2023 Shaikh Jose MD - 10/15/2023 5:13 PM Nikolay Garcia MD - 10/15/2023 5:12 PM Nikolay Garcia MD - 10/15/2023 5:12 PM Nikolay Garcia MD - 10/15/2023 5:10 PM EST Note Date & Type Note Facility 10-15-2023 History of Presen t illness Narrative Associated Problem(s): Screening for diabetes mellitus Screen for T2 DM. Associated Problem(s): Screening for hyperlipidemia Screen for HLD. Associated Problem(s): Bilateral lower extremity edema Bilateral LE edema, intermittent, worse towards the end of the day. Associated leg heaviness, cramping and pain. No associated SOB, PND, orthopnea. Likely due to venous insufficiency. Will order CBC, CMP, urine protein/creatinine to make sure no sig electrolyte, renal or hepatic abnormality. Order US for confirm my suspicion Patient educated in great detail on lifestyle modifications, leg elevation, compression stockings for conservative/symptomatic treatment for her symptoms. Associated Problem(s): Autoimmune hepatitis treated with steroids (CMS/HCC) No recent flare up. Requires prednisone for flare ups. Subjective Patient ID: Trudy Wilder is a 47 y.o. female who presents for Leg Pain (fariha). Patient reports intermittent b/l LE edema, worse towards the end of the day. Associated with pain, discomfort and cramping. Denies SOB, Orthopnea, PND. This has been going on chronically but gotten worse recently. Current Outpatient Medications on File Prior to Visit Medication Sig Dispense Refill [DISCONTINUED] fluconazole (Diflucan) 150 MG tablet Take 1 tablet (150 mg) by mouth in the morning. Take 1 tab today; may repeat x 1 if no improvement in symptoms in 72 hours. 2 tablet 0 [DISCONTINUED] metroNIDAZOLE (Flagyl) 500 MG tablet Take 1 tablet (500 mg) by mouth in the morning and 1 tablet (500 mg) before bedtime. Do all this for 7 days. 14 tablet 0 No current facility-administered medications on file prior to visit. Allergies Allergen Reactions Promethazine Seizures Doxycycline GI intolerance Sulfa Antibiotics Hives and Rash Review of System All systems negative except as mentioned in HPI. Visit Vitals BP 100/80 (BP Location: Left arm, Patient Position: Sitting, BP Cuff Size: Large adult) Pulse 79 Temp 96.9 F (Tympanic) Ht 5' 3 Wt 215 lb SpO2 96% BMI 38.09 kg/m Smoking Status Never BSA 2.08 m Patient Health Questionnaire-2 Score: 0 @LABRESULTS@ No images are attached to the encounter. Objective Morbidly obese, sitting comfortably, in no acute distress. Physical Exam General: Comfortable, NAD HEENT: AT/NC. Resp: Normal RR, CTA b/l CVS: Normal HR, No mumur noted. GI: soft, non tender, non distended. Neuro: AAOX 3, moving all extremities. Psych: Calm, co operative, no HI/SI. Ext: trace pedal edema. Assessment/Plan Problem List Items Addressed This Visit Bilateral lower extremity edema - Primary Bilateral LE edema, intermittent, worse towards the end of the day. Associated leg heaviness, cramping and pain. No associated SOB, PND, orthopnea. Likely due to venous insufficiency. Will order CBC, CMP, urine protein/creatinine to make sure no sig electrolyte, renal or hepatic abnormality. Order US for confirm my suspicion Patient educated in great detail on lifestyle modifications, leg elevation, compression stockings for conservative/symptomatic treatment for her symptoms. Relevant Orders Vascular US lower extremity venous insufficiency bilateral CBC and differential Comprehensive metabolic panel Protein, urine, random Creatinine, urine, random Screening for hyperlipidemia Screen for HLD. Relevant Orders Lipid panel Screening for diabetes mellitus Screen for T2 DM. Relevant Orders Hemoglobin A1c Autoimmune hepatitis treated with steroids (CMS/HCC) No recent flare up. Requires prednisone for flare ups. Relevant Orders CBC and differential Comprehensive metabolic panel Follow up if symptoms worsen or fail to improve, for Recheck. documented in this encounter [facility] 04-30-2023 Evaluation note Encounter Date Diagnosis Assessment Notes Apr, Vaginal discharge (ICD-10 - N89.8) Vag + performed in office today. Will treat prophylactically for BV/yeast based on physical exam and symptoms. Specimen was sent to lab and patient will be notified of results. Treatment plan may be altered at time of results. Stressed importance of not drinking alcohol while taking medication as it will cause reaction. Patient to follow with PCP or PAEDODONTIST as needed for persistent or worsening symptoms. Immediate eval if abdominal pain, fever, chills, body aches, back/flank pain, nausea, urinary complaints. Avoid douching and sexual activity at this time. Patient verbalizes understanding and is agreeable to treatment plan. [email or web address] Other 05-03-2023 NoteBREAST IMAGING CONSULTATION: 01/13/2023 CLINICAL: Screening. Comparison is made to exams dated: 12/27/2021 mammogram and 12/25/2020 mammogram - [facility]. The tissue of both breasts is heterogeneously dense. This may lower the sensitivity of mammography. Current study was also evaluated with a Computer Aided Detection (CAD) system. There are benign nodules in both breasts. There also are benign scattered calcifications in the right breast. No significant masses, calcifications, or other findings are seen in either breast. There has been no significant interval change. IMPRESSION: BENIGN There is no mammographic evidence of malignancy. A 1 year screening mammogram is recommended. (01/14/2024) The patient was notified of the results. Your patient's mammogram demonstrates that she has dense breast tissue, which could hide small abnormalities. In compliance with H.B[address] 394 Section 3702.40 the patient has been sent a letter which informs her that she has dense breast tissue and might benefit from supplementary screening tests depending on her individual risk factors. The patient may contact you if she has any questions or concerns. Investigation of a clinically suspicious lesion should not be precluded by the lack of specific imaging findings. 10-15% of breast cancers may not be detected on mammograms. The [employer] supports annual screening mammography starting at age 40. Mandy Daly MD [facility]/joshua:01/14/2023 11:18:17 Solutions Manager(s): RT Sharath(Johny)(Culry), [facility] letter sent: New Mammo Normal B1/2 Mammogram BI-RADS: 2 Benign Final Dictated by: Mandy Daly MD Signed by: Mandy Daly MD Signed (Electronic Signature): 01/14/2023 11:18 am (If Report Is Signed, Electronically Signed in Other Vendor System)[facility]02-12-2023 NotePatient Education Materials Name: Trudy Ridley Current Date: 10/26/2022 08:09:43 [facility] : 1975 The following sheet(s) are the Patient Education Leaflets for Trudy Ridley Oncology Breast Health: Breast Self-Awareness What is breast self-awareness? Breast self-awareness is knowing how your breasts normally look and feel. Your breasts change as you go through different stages of your life. So it's important to learn what is normal for your breasts. Breast self-awareness helps you notice any changes in your breasts right away. Report any changes to your healthcare provider. Why is breast self-awareness important? Many experts now say that women should focus on breast self-awareness instead of doing a breast self-examination (BSE). These experts include the [employer], the [employer].[place] Preventive ServicesTask Force, and the [place] [employer]. Some experts even advise not teaching women to do a BSE. That's because research hasn't shown a clear benefit to doing BSEs. Breast self-awareness is different than a BSE. Breast self-awareness isn't about following a certain method and schedule. It's about knowing what's normal for your breasts. That way you can notice even small changes right away. If you see any changes, report them to your healthcare provider. Changes to look for Call your healthcare provider if you find any changes in your breasts that concern you. These changes may include: ? A lump ? Nipple discharge other than breastmilk, especially a bloody discharge ? Swelling ? A change in size or shape ? Skin irritation, such as redness, thickening, or dimpling of the skin ? Swollen lymph nodes in the armpit ? Nipple problems, such as pain or redness If you find a lump Contact your provider if you find lumpiness in one breast, feel something different in the tissue, or feel a definite lump. Sometimes lumpiness may be due to menstrual changes. But there may be reason for concern. Your provider may want to see you right away if you have: ? Nipple discharge that is bloody ? Skin changes on your breast, such as dimpling or puckering It's normal to be upset if you find a lump. But it's important to contact your provider right away.Remember that most breast lumps are benign. This means they are not cancer. ? 8450-0531 [employer]. [address] [place] [address], [place] [address]. All rights reserved. This information is not intended as a substitute for professional medical care. Always follow your healthcare professional's instructions.[facility]12-19-2022 Evaluation note* Encounter Date Diagnosis Assessment Notes Treatment Notes Treatment Clinical Notes Aug, Hepatitis, autoimmune (ICD-10 - K75.4) [email or web address] Other 04-04-2022 Evaluation note* Encounter Date Diagnosis Assessment Notes Treatment Notes Treatment Clinical Notes Dec, Dysphagia (ICD-10 - R13.10) PROCEED WITH EGD Dec, Eosinophilic esophagitis (ICD-10 - K20.0) PATIENT IS NOT SURE IF THE SINGULAIR IS WORKING OR NOT. PATIENT ADVISED WE MAY NEED TO CHANGE MEDICATIONS FOR THIS. PATIENT IS ADVISED WE SHOULD PROCEED WITH THE EGD Dec, Gas (ICD-10 - R14.3) PATIENT STATES THAT SHE DOES EXPERIENCE THIS A LOT. Dec, Abdominal cramping (ICD-10 - R10.9) PATIENT DOES EXPERIENCE THIS DISCOMFORT. [email or web address] Other 02-09-2022 Evaluation note* Encounter Date Diagnosis Assessment Notes Treatment Notes Treatment Clinical Notes Oct, High risk heterosexual behavior (ICD-10 - Z72.51) Oct, Vaginal discharge (ICD-10 - N89.8) Take all the medications as prescribed until gone. Use the vaginal gel as prescribed until gone. Drink plenty of fluids and get plenty of rest. No intercourse for 2 weeks. Always use condoms. Follow-up with your family physician if no improvement in 2 to 3 days. Oct, Vaginal irritation (ICD-10 - N89.8) [email or web address] Other 02-07-2022 Evaluation note* Encounter Date Diagnosis Assessment Notes Treatment Notes Treatment Clinical Notes Oct, Dysphagia (ICD-10 - R13.10) [email or web address] Other 01-28-2022 Evaluation note* Encounter Date Diagnosis Assessment Notes Treatment Notes Treatment Clinical Notes Sep, Hepatitis, autoimmune (ICD-10 - K75.4) Sep, Vomiting (ICD-10 - R11.10) Sep, Fatigue (ICD-10 - R53.83) [email or web address] Other 01-11-2022 Evaluation note* Encounter Date Diagnosis Assessment Notes Treatment Notes Treatment Clinical Notes Sep, Stomach pain (ICD-10 - R10.9) Sep, Heartburn (ICD-10 - R12) Sep, Dysphagia (ICD-10 - R13.10) PATIENT STATES SHE DOES HAVE THIS AND WILL HAVE THE DISCOMFORT WHILE AT WORK WILL RESTART SINGULAIR AT THIS TIME Sep, Hepatitis, autoimmune (ICD-10 - K75.4) PATIENT ADVISED LABS ARE GOOD. FMLA CAN BE COMPLETED PER DR FOR PATIENT Sep, Eosinophilic esophagitis (ICD-10 - K20.0) RESTART THE SINGULAIR AND COMPLETE FMLA [email or web address] Other Evaluation noteNo assessment information available [facility] Work Phone: Evaluation noteNo InformationNort [employer] Other Evaluation note* Diagnosis Bilateral lower extremity edema- Primary Screening for hyperlipidemia Screening for lipoid disorders Screening for diabetes mellitus Autoimmune hepatitis treated with steroids (CMS/HCC) documented in this encounter [facility] N[facility] - Reported* Type Description Date Medical History seizures Medical History BMI 34.0-34.9,adult Medical History Dietary counseling and surveilla nce Medical History BMI 32.0-32.9,adult Medical History BMI 31.0-31.9,adult Medical History Body mass index (BMI) of 33.0-33 .9 in adult Medical History autoimmune hepatitis Medical History migraine headache Surgical History T and A Surgical History left knee miniscus repair Surgical History left overy removed Surgical History DNC Surgical History ablasion uterus Surgical History hysterectomy Hospitalization History see above [email or web address] Other History general Narrative - Reported* Type Description Date Medical History seizures Medical History BMI 34.0-34.9,adult Medical History Dietary counseling and surveilla nce Medical History BMI 32.0-32.9,adult Medical History BMI 31.0-31.9,adult Medical History Body mass index (BMI) of 33.0-33 .9 in adult Medical History autoimmune hepatitis Medical History migraine headache Medical History esophageal constriction Surgical History T and A Surgical History left knee miniscus repair Surgical History left overy removed Surgical History DNC Surgical History ablasion uterus Surgical History hysterectomy Hospitalization History see above [email or web address] Other Family History No Family History Records Found Child Name Dates Details Family history of irritable bowel syndrome(V18.59, Z83.79) Status:Active Sibling Name Dates Details Family history of asthma(V17 .5, Z82.5) Status:Active Mother Name Dates Details Family history of irritable bowel syndrome(V18.59, Z83.79) Status:Active Family history of COPD, mild (496, J44.9) Status:Active Father Name Dates Details Family history of cardiac di sorder(V17.49, Z82.49) Status:Active Family history of stroke(V17 .1, Z82.3) Status:Active Family history of myocardial infarction(V17.3, Z82.49) Status:Active Family history of diabetes m ellitus(V18.0, Z83.3) Status:Active Family history of hypertensi on(V17.49, Z82.49) Status:Active Family history of malignant neoplasm of prostate(V16.42, Z80.42) Status:Active Child Name Dates Details Family history of irritable bowel syndrome(V18.59, Z83.79) Status:Active Sibling Name Dates Details Family history of asthma(V17 .5, Z82.5) Status:Active Mother Name Dates Details Family history of irritable bowel syndrome(V18.59, Z83.79) Status:Active Family history of COPD, mild (496, J44.9) Status:Active Father Name Dates Details Family history of cardiac di sorder(V17.49, Z82.49) Status:Active Family history of stroke(V17 .1, Z82.3) Status:Active Family history of myocardial infarction(V17.3, Z82.49) Status:Active Family history of diabetes m ellitus(V18.0, Z83.3) Status:Active Family history of hypertensi on(V17.49, Z82.49) Status:Active Family history of malignant neoplasm of prostate(V16.42, Z80.42) Status:Active Summary Purpose Advance Directives No Advanced Directives Records Found Advance Directive Response Recorded Date/ Time Advance Directives No May 9:27pm Advance Directive Response Recorded Date/ Time Advance Directives No May 10:27pm Chief Complaint and Reason for Visit Chief Complaint K75.4 Reason for Referral Specialty Diagnoses / Procedures Referred By Jeff cortez Referred To Contact Radiology Diagnoses Bilateral lower extremity edema Procedures Vascular US lower extremity venous insufficiency bilateral Shaikh Garcia MD [address] [place] [address] [facility] [address] [place] [address] Phone: [phone] Referral ID Status Reason Start Date Expiration Date V isits Requested Visits Authorized [id number] Authorized 10/15/2023 04/12/2024 1 1 Additional Source Comments INFORMATION SOURCE (unrecogn ized section and content) DATE CREATED AUTHOR 04/06/2020 [facility] DATE CREATED AUTHOR AUTHOR'S ORGANIZ ATION 04/06/2020 [employer] DATE CREATED AUTHOR AUTHOR'S ORGANIZ ATION 11/09/2022 [facility] DATE CREATED AUTHOR AUTHOR'S ORGANIZ ATION 05/09/2023 [facility] DATE CREATED AUTHOR AUTHOR'S ORGANIZ ATION 10/09/2023 [facility] DATE CREATED AUTHOR AUTHOR'S ORGANIZ ATION 10/17/2023 [facility] EPIC REASON FOR VISIT (unrecogniz ed section and content) Reason Comments Leg Pain fariha Care Teams (unrecognized sec tion and content) Team Status: Inactive Member Role Status Dates Viral Lewis MD Primary Care Provider Active Nir Zamarripa MD Attending Provider Active Team Status: Active Member Role Status Dates Viral Lewis MD Primary Care Provider Active Team Status: Inactive Member Role Status Dates Faina Miller APRN Attending Provider Active 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 Specialty Start Date End Date Viral Lewis MD [address] [place] [address] PCP - General Family Medicine 10/15/23 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 This clinical summary was aggregated from multiple sources. Caution should be exercised in using it in the provision of clinical care. This summary normalizes information from multiple sources, and as a consequence, information in this document may materially change the coding, format and clinical context of patient data. In addition, data may be omitted in some cases. CLINICAL DECISIONS SHOULD BE BASED ON THE PRIMARY CLINICAL RECORDS. [employer] [facility]. provides no warranty or guarantee of the accuracy or completeness of information in this document.
[2023-10-23 15:06] LABS: D Dimer 0.48 mg/L FEU (<=0.59)
== END 2023-10-23 14:22 | disposition home or self-care (01) ==
LOC: LAB 14:22
PROVIDERS: PCP Family Medicine; Visit Provider Internal Medicine
DX: R60.0 Localized edema (principal)
CPT/HCPCS: 36415; 85378

== ENCOUNTER 2023-11-05 12:58 | Outpatient (OUT) | payer BC, SELFPAY ==
--- NOTE | 2023-11-05 13:00 | VEIN_ITS ---
Patient Name: IMAN DURAN MR#: [id number] : 1975 Exam Date: 11/05/2023 Ordering Doctor: DR ELDER KOENIG M.D. RADIOLOGY REPORT PROCEDURE: FACILITY EST COMPREHENSIVE VEIN CENTER - OFFICE VISIT INITIAL COMPARISON: None. PROGRESS NOTES: [age] year old female who presents with a 1 year history of lower extremity swelling, pain. The patient's left leg symptoms are worse than the right. There was progression of symptoms initially, but things have started to improve. The pain and swelling increases with prolonged leg dependency. The patient describes an improvement with rest, elevation, exercise, decreased salt intake, change in diet. The patient denies any signs and symptoms to suggest arterial ischemia. The patient describes a family history heart disease, diabetes, hypertension. The patient has drinking and smoking history of : None. Patient has a past medical history significant for obesity, kidney stones, bilateral lower extremity edema. The patient denies a history of deep venous thrombus or pulmonary embolus. See separate history and physical for medication list. No prior treatment for varicose or spider veins. No current use of compression stockings. After review of nurse notes, history and physical exam I discussed at length the pathophysiology of venous hypertension and possible treatments, therapies and strategies available. We discussed at length the importance of elevating the lower extremities above the level of the heart, increased physical activity and compression stocking use. Ultrasound venous reflux study performed today was discussed at length with the patient. The report demonstrates mildly dilated proximal right great saphenous vein with moderate reflux in the proximal segment. The remainder of the right great saphenous vein is normal caliber with only mild reflux. No abnormality of the right small saphenous, anterior accessory saphenous, left great saphenous and small saphenous veins.. PHYSICAL EXAM: The right leg demonstrates no visible varicosities, no significant spider veins, no ulceration, no significant edema, no skin discoloration. The left leg demonstrates no visible varicosities, no significant spider veins, no ulceration, no significant edema, no skin discoloration. Both thighs, legs and feet were symmetrically warm to the touch. Good posterior tibial and dorsalis pedis pulses were present bilaterally. VEIN/VC Facility EST Comprehensive IMPRESSION: 1. Mild right great saphenous venous insufficiency 2. No significant lower extremity varicose veins 3. No significant lower extremity subcutaneous edema 4. No flow significant arterial disease 5. CEAP: C 0, EN, AN, PN PLAN: 1. Continued use of compression stockings 2. Elevated legs and increased physical activity symptomatic relief 3. No treatment for vein disease recommended at this time. Please follow-up in future as needed. Nurse notes, history and physical were reviewed and confirmed, see attached forms. The nurse was present throughout the physical exam and consultation Dictated by: Ty Aguirre M.D. on 11/05/2023 at 15:29 Approved by: Ty Aguirre M.D. on 11/05/2023 at 15:36
--- NOTE | 2023-11-05 13:00 | VEIN_ITS ---
Patient Name: IMAN DURAN MR#: [id number] : 1975 Exam Date: 11/05/2023 Ordering Doctor: DR ELDER KOENIG M.D. RADIOLOGY REPORT PROCEDURE: VC EXT VENOUS REFLUX CHIN LMTD COMPARISON: None. INDICATIONS: I83.813 Bilateral painful varicose veins TECHNIQUE: Duplex imaging of the lower extremity to assess the deep and superficial venous system for the presence of deep or superficial venous incompetence and to document the location and severity of disease. The study includes evaluation of the great saphenous vein (GSV), anterior accessory saphenous vein (AASV) and small saphenous vein (SSV). Patient scanned in reverse Trendelenburg and standing. FINDINGS: RIGHT LOWER EXTREMITY: Saphenofemoral Junction Reflux: Yes 7.7mm 2.5 sec GSV: Diam (mm) Reflux/ Time (sec) Proximal Thigh 6.6 Yes 2.7 Mid Thigh 4.3 No Distal Thigh 5.4 Yes 1.0 Prox Calf 4.6 Yes 0.7 Mid Calf 3.5 Yes 0.8 Saphenopopliteal Junction Reflux: 2.3mm No SSV: Proximal Calf 2.7 Mid Calf 2.5 No AASV: Proximal Thigh 4.3 No Mid Thigh 2.6 No Distal Thigh Thrombi: No acute or chronic thrombus visualized Compressibility: Normal Flow: Normal Preforator: Dist/med calf 2.8mm with 0s reflux. Prox/med calf 3.2mm with 0s reflux. Tech Note: Incompetent GSV. Patent varicose vein mid/med calf 4.1mm with 0s reflux. LEFT LOWER EXTREMITY: Saphenofemoral Junction Reflux: No 5.3 mm sec GSV: Diam (mm) Reflux/Time (sec) Proximal Thigh 2.7 No Mid Thigh 3.2 Yes 0.5 Distal Thigh 3.9 No Prox Calf 3.6 No Mid Calf 3.2 No Saphenopopliteal Junction Relux: 2.1 mm N/A SSV: Proximal Calf 1.8 No Mid Calf N/A AASV: Not present Proximal Thigh Mid Thigh Distal Thigh Thrombi: No acute or chronic thrombus visualized Compressibility: Normal Flow: Normal Blown Film Extrusion Operator: Dist/med calf 3.1mm with 0s reflux. Tech Note: No incompetent or varicose veins present. CONCLUSION: 1. 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 Dictated by: Ty Aguirre M.D. on 11/05/2023 at 14:25 Approved by: Ty Aguirre M.D. on 11/05/2023 at 15:24
--- OUTSIDE RECORDS SUMMARY | 2023-11-05 13:05 | XMS_ITS | CCD ---
Author Name Unknown Address [address] [place] [address] Organization [facility] Care Team Providers Care Compliance Lead Name Role Phone Chas Elian Unavailable Unavailable Didier Beltrán Unavailable Unavailable Viral Lewis Unavailable Unavailable Nir Zamarripa Unavailable Ellie Kemp Unavailable MD Viral Lewis Primary Care Provider MD Nir Zamarripa Attending Provider FAWWALuke, BOWERS H Admitting Unavailable JOSE, BOWERS H Consulting Unavailable JOSE, BOWERS H Attending Unavailable JOSHUA, DR VIRAL Cervantes Primary Care Unavailable JOSHUA, DR VIRAL Cervantes Consulting Unavailable JOSHUA, DR VIRAL Cervantes Attending Unavailable JOSHUA, DR VIRAL Cervantes Admitting Unavailable JOSHUA, DR VIRAL Cervantes Primary Care Unavailable JOSE, H Attending Unavailable JOSE, BOWERS H Admitting Unavailable JOSE, BOWERS H Consulting Unavailable JOSHUA, DR VIRAL Cervantes Primary Care Unavailable SALOMÓN CERVANTES Consulting Unavailable Faina Miller Unavailable CRISSY Miller Attending Provider [phone] Viral Lewis Primary Care Unavailable Nir Zamarripa Admitting UnavailNir Coronado Attending UnavailFaina Walton Admitting Unavailable Faina Miller Attending Unavailable NO FAMILY, PHYSICIAN Primary Care Unavailable Cris GREER, Sendy Quigley Attending Love Lewis MD, Viral Self Primary Care Unavail able Joshua ADAM, Viral Self Primary Care Unavail able Cris [...] rudi Lewis MD, Viral Primary Care Provider BREE BENITEZ Attending Unavailable SHAIKH GARCIA Attending Unavailable YARELIS MALIK Attending Unavailable Allergies Allergy Classification Reported Allergen(s) Allergy Type Date of Onset Reaction(s) Facility (20 sources) Doxycycline; Translations: [doxycycline] Drug Allergy 06-21-20 13 GI intolerance (4 sources) Promethazine; Translations: [Phenergan] Drug Allergy 06-21-20 13 [facility] (2 sources) Sulfonamides (Antibiotic) Allergy to drug (finding) [id number] [address] [address] Work Phone: (9 sources) Clarithromycin Drug Allergy Unknown Auth0 Other (17 sources) Promethazine Drug Allergy 06-14-20 19 Seizures (9 sources) Sulfacetamide Drug Allergy Unknown Auth0 Other (9 sources) cat scan contrast Propensity to adverse reactions Unknown Auth0 Other (3 sources) Sulfonamides (Antibiotic); Translations: [Sulfa (Sulfonamide Antibiotics)] Allergy to substance 06-14-20 19 Rash (3 sources) Iodinated Contrast Media; Translations: [Iodinated Contrast Media] Allergy to substance 06-14-20 19 Difficulty Breathing (1 source) Sulfonamides (Antibiotic) Drug allergy (disorder) 06-21-20 13 [facility] (1 source) topiramate Drug Allergy 06-21-20 13 [facility] (1 source) Promethazine Drug Allergy 06-14-20 Repository (1 source) Contrast media; Translations: [contrast media (iodine-based)] Propensity to adverse reactions to drug (disorder) [facility] (5 sources) Sulfonamides (Antibiotic) Drug Allergy 06-14-20 Hives, [...] Orally once for 1 days Oct, Active furosemide 20 mg oral tablet (2 sources) Loop Diuretic Start: 10-22-2023 End: 11-21-2023 take 1 tablet by mouth in the morning furosemide (Lasix) 20 MG tablet Indications: Bilateral lower extremity edema Take 1 tablet (20 mg) by mouth in the morning. 30 tablet 0 10/22/2023 11/21/2023 Active meclizine hydrochloride 25 mg oral tablet [...] in the morning. Take 1 tab today; january repeat x 1 if no improvement in [...] capsule Discontinued 75 MG PO Twice daily 10 November 15, 2018 1:00am November 20, 2018 1:03am [...] headache disorder; Translations: [Chronic headaches] Episodic Hepatitis (20 sources) Autoimmune hepatitis; Translations: [Autoimmune hepatitis] Onset: [...] pain; Translations: [Other chest pain] Episodic Osteoarthritis (6 sources) Osteoarthritis of right knee joint; Translations: [...] Chronic Other nutritional; endocrine; and metabolic disorders (6 sources) Obesity caused by energy imbalance; Translations: [Other obesity due to excess calories] Onset: 08-31-2023 08-31-2023 Chronic Other nutritional; endocrine; and metabolic disorders (9 sources) Loss of appetite; Translations: [Anorexia] Episodic Other screening for suspected conditions (not mental disorders or infectious disease) (14 sources) Patient encounter status; Translations: [Encounter for screening for lipoid disorders] Onset: 10-15-2023 10-15-2023 Episodic Other skin disorders (2 sources) H/O: skin disorder; Translations: [History of sebaceous cyst] Episodic Other upper respiratory disease (6 sources) Allergic rhinitis caused by mold; Translations: [Other allergic rhinitis] Onset: 04-07-2023 04-07-2023 Chronic Other upper respiratory infections (6 sources) Pharyngitis; Translations: [Acute pharyngitis, unspecified] Onset: 08-31-2023 08-31-2023 Episodic Residual codes; unclassified (2 sources) Sensory symptoms; Translations: [Hemisensory deficit] Episodic Residual codes; unclassified (8 sources) Bilateral lower limb edema; Translations: [Localized edema] Onset: 10-15-2023 10-15-2023 Episodic Past or Other Problems Problem Classification Problem Date Documented Da te Episodic/Chronic Blindness and vision defects (6 sources) Visual disturbance; Translations: [Unspecified visual disturbance] Onset: 04-07-2023 04-07-2023 Episodic Conditions associated with dizziness or vertigo (12 sources) Dizziness; Translations: [Dizziness and giddiness] Onset: 04-07-2023 07-19-2019 Episodic Other female genital disorders (6 sources) Burning sensation of vagina; Translations: [Unspecified [...] 10-23-2021 Resolved: 10-23-2021 Episodic Residual codes; unclassified (6 sources) Disorder of head; Translations: [Other general symptoms and signs] Onset: 04-07-2023 04-07-2023 Episodic NEGATED: Highlighted row has not occurred!Residual codes; unclassified (8 sources) Disease Episodic Results Test Name Value Interpretation Reference Range Facility [facility] D-DIMERon 10-23-2023 D DIMER 0.48 [facility] Comment on above: Increases in D-Dimer concentration observed with thromboembolic events can be variable due to localization, size, and age of the thrombus. Therefore, a thromboembolic event cannot be diagnosed with certainty on the basis of the reference range. D-Dimers may also be elevated for a variety of disorders including advanced age, , coronary disease, cancer, liver disease, infection, inflammation, hematoma, DIC, trauma, post-surgery, diabetes, thrombolytic or anticoagulant therapy, stress, and generalized hospitalization. [facility] ALL CBC WITH AUTO DIFFon BASOPHILS ABSOLUTE AUTO 0.1 N [facility] Basophils/100 WBC (Bld) 0.7 % 0.2 - 2.0 % [facility] Eosinophils/100 WBC (Bld) 5.5 % 0.9 - 7.0 % [facility] Erythrocyte distribution width (RBC) [Ratio] 13.2 % 11.0 - 15.0 % [facility] Hematocrit (Bld) [Volume fraction] 40.8 % 36.0 - 48.0 % [facility] Hemoglobin (Bld) [Mass/Vol] 13.4 g/dL 12.0 - 16.0 g/dL [facility] IMMATURE GRANULOCYTES ABS AUTO 0.04 High [facility] Immature granulocytes/100 WBC (Bld) 0.4 % 0.0 - 0.5 % [facility] Interpretation and review of laboratory results Abnormal [facility] LYMPHOCYTES ABSOLUTE AUTO 2.7 [facility] Lymphocytes/100 WBC (Bld) 28.5 % 20.5 - 60.0 % [facility] MCH (RBC) [Entitic mass] 29.6 pg 26.7 - 34.0 pg [facility] MCHC (RBC) [Mass/Vol] 32.8 g/dL 29.9 - 35.2 g/dL [facility] MCV (RBC) [Entitic vol] 90.1 fL 81.0 - 99.0 fL [facility] MONOCYTES ABSOLUTE AUTO 0.6 N [facility] Monocytes/100 WBC (Bld) 6.0 % 1.7 - 12.0 % [facility] NEUTROPHILS ABSOLUTE AUTO 5.6 [facility] Neutrophils/100 WBC (Bld) 58.9 % 43.0 - 75.0 % [facility] Platelet mean volume (Bld) [Entitic vol] 10.3 fL 9.5 - 13.5 fL [facility] TBH EO # 0.5 [facility] PLT 282 [facility] RBC 4.53 [facility] WBC 9.5 [facility] Vaginitis Plus (VG+)on 04-30 Atop[employer]ium Vaginae High - 2 Critically abnormal . Comment on above: Order Comment: SOURC E OF SPECIMEN: VAG Performed By: #### V AGINITIS+ #### [facility] , BVAB2 Low - 0 Normal . Comment on above: Order Comment: SOURC E OF SPECIMEN: VAG Performed By: #### V AGINITIS+ #### [facility] , Mely Albicans, ABRAHAN Negative Normal Negative [facility] Comment on above: Order Comment: SOURC E OF SPECIMEN: VAG Result Comment: This test was developed and its performance characteristics determined by [facility]. It has not been cleared or approved by the Food and Drug Administration. Performed By: #### V AGINITIS+ #### [facility] , Mely Glabrata, ABRAHAN Negative Normal Negative [facility] Comment on above: Order Comment: SOURC E OF SPECIMEN: VAG Result Comment: This test was developed and its performance characteristics determined by [facility]. It has not been cleared or approved by the Food and Drug Administration. PERFORMED BY: [facility] [address] [place] [address] PATHOLOGIST SWAGING MACHINE ADJUSTER MADELINE EDGAR M.D. Performed By: #### V AGINITIS+ #### [facility] , Chlamydia Trachomotis, ABRAHAN Negative Normal Negative Comment on above: Order Comment: SOURC E OF SPECIMEN: VAG Performed By: #### V AGINITIS+ #### [facility] , Megasphaera Low - 0 Normal . Comment on above: Order Comment: SOURC E [...] , Neisseria Gonorrhoeae, ABRAHAN Negative Normal Negative Comment on above: Order Comment: SOURC E OF SPECIMEN: VAG Result Comment: Perf ormed at: =G - [facility] [address] [place] [id number] Mechanical Equipment Test Engineer: Rosie Martinez MD, Phone: [phone] Performed By: #### V AGINITIS+ #### [facility] , Tric Vag ABRAHAN Negative Normal Negative Comment on above: Order Comment: SOURC E OF SPECIMEN: VAG Performed By: #### V AGINITIS+ #### [facility] , Provider Letteron 04-20-2023 Provider Letter [facility] Dr. Carmen Graves, [place]. [address] [id number] P: [phone], F: [phone] April 20, 2023 Viral Almanzar [address] [place] [address] Re: Trudy Tina 1975 Date of Visit: 10/29/2022 Dear Viral Lewis MD, Please send recent lab results on this mutual patient you have with our office. Thank you! Please feel free to contact our office with any questions regarding this concern. Thank you! Dominga Dorado RN, BSN MP RN Health Stapler Coil Unit/Instrumentation Designer Direct phone: [phone], Ext [phone] Normal [facility] LIPASEon 11-05-2022 Lipase [Catalytic activity/Vol] 97.0 U/L Normal 73.0-393.0 [facility] Comment on above: Performed By: #### C MP, LIPA #### [facility] [address] [place] [address] Dr. Ann Watson PROF 14(COMP METB)on 023 Albumin [Mass/Vol] 3.7 g/dL Normal 3.4-5.0 [facility] Comment on above: Performed By: #### C MP, LIPA #### [facility] [address] [place] [address] Dr. Ann Watson Albumin/Globulin [Mass ratio] 1.2 {ratio} Normal [facility] Comment on above: Performed By: #### C MP, LIPA #### [facility] [address] [place] [address] Dr. Ann Watson ALP [Catalytic activity/Vol] 87 U/L Normal 46-116 [facility] Comment on above: Performed By: #### C MP, LIPA #### [facility] [address] [place] [address] Dr. Ann Watson ALT [Catalytic activity/Vol] 14 U/L Normal 14-59 [facility] Comment on above: Performed By: #### C MP, LIPA #### [facility] [address] [place] [address] Dr. Ann Watson Anion gap [Moles/Vol] 7.6 mmol/L Normal [facility] Comment on above: Performed By: #### C MP, LIPA #### [facility] [address] [place] [address] Dr. Ann Watson AST [Catalytic activity/Vol] 12 U/L Critically low 15-37 [facility] Comment on above: Performed By: #### C MP, LIPA #### [facility] [address] [place] [address] Dr. Ann Watson Bilirubin [Mass/Vol] 0.5 mg/dL Normal 0.2-1.0 [facility] Comment on above: Performed By: #### C MP, LIPA #### [facility] [address] [place] [address] Dr. Ann Watson Calcium [Mass/Vol] 9.0 mg/dL Normal 8.5-10.1 [facility] Comment on above: Performed By: #### C MP, LIPA #### [facility] [address] [place] [address] Dr. Ann Watson Chloride [Moles/Vol] 107 mmol/L Normal 98-107 [facility] Comment on above: Performed By: #### C MP, LIPA #### [facility] [address] [place] [address] Dr. Ann Watson CO2 [Moles/Vol] 27.6 mmol/L Normal 21.0-32.0 [facility] Comment on above: Performed By: #### C MP, LIPA #### [facility] [address] [place] [address] Dr. Ann Watson Creatinine [Mass/Vol] 0.59 mg/dL Normal 0.55-1.02 [facility] Comment on above: Performed By: #### C MP, LIPA #### [facility] [address] [address] [address] Ann Watson EGFR-AF NEW ZEALANDER >60 Normal >=60 [facility] Comment on above: Performed By: #### C MP, LIPA #### [facility] [address] [address] [address] Ann Watson EGFR-NON AF NEW ZEALANDER >60 Normal >=60 [facility] Comment on above: Performed By: #### C MP, LIPA #### [facility] [address] [address] [address] Ann Watson Globulin (S) [Mass/Vol] 3.2 g/dL Normal [facility] Comment on above: Performed By: #### C MP, LIPA #### [facility] [address] [place] [address] Dr. Ann Watson Glucose [Mass/Vol] 89 mg/dL Normal 74-106 [facility] Comment on above: Performed By: #### C MP, LIPA #### [facility] [address] [place] [address] Dr. Ann Watson Potassium [Moles/Vol] 4.2 mmol/L Normal 3.5-5.1 [facility] Comment on above: Performed By: #### C MP, LIPA #### [facility] [address] [place] [address] Dr. Ann Watson Protein [Mass/Vol] 6.9 g/dL Normal 6.4-8.2 [facility] Comment on above: Performed By: #### C MP, LIPA #### [facility] [address] [place] [address] Dr. Ann Watson Sodium [Moles/Vol] 138 mmol/L Normal 136-145 [facility] Comment on above: Performed By: #### C MP, LIPA #### [facility] [address] [place] [address] Dr. Ann Watson Urea nitrogen [Mass/Vol] 14.0 mg/dL Normal 7.0-18.0 [facility] Comment on above: Performed By: #### C MP, LIPA #### [facility] [address] [address] [address] Ann Watson Urea nitrogen/Creatinine [Mass ratio] 23.7 mg/mg Normal [facility] Comment on above: Performed By: #### C MJ PALUMBO #### [facility] [address] [address] [address] Ann Watson Affirm DNA Panelon Mely DNA Negative Normal Negative [facility] Comment on above: Result Comment: The AffirmVPII [...] organism are common. 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 Review of Systems Head Migraines: Yes [...] exercise 30 min 5 days weekly. Ordered: [id number] AMB Preventative EST patient; 40-64 years Medical [...] 5 mg-325 (more content not included)... Normal [facility] CBC AUTO DIFFon 10-10-2022 BASO # 0.0 103/ul Normal 0.0-0.1 [facility] Comment on above: Performed By: #### C BC #### [facility] [address] [address] [address] Ann Watson Basophils/100 WBC (Bld) 0.5 % Normal 0.2-2.0 [facility] Comment on above: Performed By: #### C BC #### [facility] [address] [place] [address] Dr. Ann Watson EO # 0.4 103/ul Normal 0.0-0.7 [facility] Comment on above: Performed By: #### C BC #### [facility] [address] [place] [address] Dr. Ann Watson Eosinophils/100 WBC (Bld) 7.4 % Critically high 0.9-7.0 [facility] Comment on above: Performed By: #### C BC #### [facility] [address] [place] [address] Dr. Ann Watson Erythrocyte distribution width (RBC) [Ratio] 12.4 % Normal 11.0-15.0 [facility] Comment on above: Performed By: #### C BC #### [facility] [address] [place] [address] Dr. Ann Watson Hematocrit (Bld) [Volume fraction] 46.5 % Normal 36.0-48.0 [facility] Comment on above: Performed By: #### C BC #### [facility] [address] [place] [address] Dr. Ann Watson Hemoglobin (Bld) [Mass/Vol] 14.4 g/dL Normal 12.0-16.0 [facility] Comment on above: Performed By: #### C BC #### [facility] [address] [place] [address] Dr. Ann Watson IG # 0.02 10e3/ul Normal 0.00-0.03 [facility] Comment on above: Performed By: #### C BC #### [facility] [address] [place] [address] Dr. Ann Watson IG % 0.4 % Normal 0.0-0.5 [facility] Comment on above: Performed By: #### C BC #### [facility] [address] [place] [address] Dr. Ann Watson LYMPH # 2.3 103/ul Normal 1.2-3.8 [facility] Comment on above: Performed By: #### C BC #### [facility] [address] [place] [address] Dr. Ann Watson Lymphocytes/100 WBC (Bld) 42.0 % Normal 20.5-60.0 [facility] Comment on above: Performed By: #### C BC #### [facility] [address] [place] [address] Dr. Ann Watson MANUAL DIFF REQ NO Normal [facility] Comment on above: Performed By: #### C BC #### [facility] [address] [place] [address] Dr. Ann Watson MCH (RBC) [Entitic mass] 30.0 pg Normal 26.7-34.0 [facility] Comment on above: Performed By: #### C BC #### [facility] [address] [place] [address] Dr. Ann Watson MCHC (RBC) [Mass/Vol] 31.0 g/dL Normal 29.9-35.2 [facility] Comment on above: Performed By: #### C BC #### [facility] [address] [place] [address] Dr. Ann Watson MCV (RBC) [Entitic vol] 96.9 fL Normal 81.0-99.0 [facility] Comment on above: Performed By: #### C BC #### [facility] [address] [place] [address] Dr. Ann Watson MONO # 0.3 103/ul Normal 0.3-0.8 [facility] Comment on above: Performed By: #### C BC #### [facility] [address] [address] [address] Ann Watson Monocytes/100 WBC (Bld) 5.8 % Normal 1.7-12.0 [facility] Comment on above: Performed By: #### C BC #### [facility] [address] [place] [address] Dr. Ann Watson NEUT # 2.4 103/ul Normal 1.4-6.5 [facility] Comment on above: Performed By: #### C BC #### [facility] [address] [place] [address] Dr. nAn Watson Neutrophils/100 WBC (Bld) 43.9 % Normal 43.0-75.0 [facility] Comment on above: Performed By: #### C BC #### [facility] [address] [place] [address] Dr. Ann Watson Platelet mean volume (Bld) [Entitic vol] 10.9 fL Normal 9.5-13.5 [facility] Comment on above: Performed By: #### C BC #### [facility] [address] [place] [address] Dr. Ann Watson PLT 267 103/ul Normal 150-450 [facility] Comment on above: Performed By: #### C BC #### [facility] [address] [place] [address] Dr. Ann Watson RBC 4.80 106/ul Normal 4.20-5.40 [facility] Comment on above: Performed By: #### C BC #### [facility] [address] [place] [address] Dr. Ann Watson WBC 5.5 103/ul Normal 4.0-11.0 [facility] Comment on above: Performed By: #### C BC #### [facility] [address] [place] [address] Dr. Ann Watson FREE T3on 10-10-2022 FREE T3 2.38 pg/mlL Normal 2.18-3.98 [facility] Comment on above: Performed By: #### F T3, TSH, LIPID, BMP #### [facility] [address] [address] [address] Ann Watson FREE T4on 10-10-2022 Free T4 [Mass/Vol] 0.84 ng/dL Normal 0.76-1.46 [facility] Comment on above: Performed By: #### F T4 #### [facility] [address] [address] [address] Ann Watson GLYCOHEMOGLOBIN A1Con 2022 ADA RECOMMENDATION SEE BELOW Normal [facility] Comment on above: Result Comment: ADA RECOMMENDED LIMIT 4.0 - 6.0 ADA THERAPEUTIC TARGET < 7.0 ACTION SUGGESTED > 7.0 Performed By: #### A 1C #### [facility] [address] [place] [address] Dr. Ann Watson Glucose [Mass/Vol] 91 mg/dL Normal [facility] Comment on above: Performed By: #### A 1C #### [facility] [address] [place] [address] Dr. Ann Watson HbA1c (Bld) [Mass fraction] 4.8 % Normal 4.5-6.2 [facility] Comment on above: Performed By: #### A 1C #### [facility] [address] [place] [address] Dr. Ann Watson LIPID PROFILEon 10-10-2022 CHOL-HDL RATIO NORM SEE BELOW Normal [facility] Comment on above: Result Comment: 3.3 - 4.4 LOW RISK 4.4 - 7.1 AVERAGE RISK 7.1 - 11.0 MODERATE RISK >11.0 HIGH RISK Performed By: #### F T3, TSH, LIPID, BMP #### [facility] [address] [address] [address] Ann Watson Cholesterol [Mass/Vol] 169 mg/dL Normal <=200 [facility] Comment on above: Performed By: #### F T3, TSH, LIPID, BMP #### [facility] [address] [place] [address] Dr. Ann Watson Cholesterol in HDL [Mass/Vol] 52 mg/dL Normal 40-60 [facility] Comment on above: Performed By: #### F T3, TSH, LIPID, BMP #### [facility] [address] [address] [address] Ann Watson Cholesterol in LDL [Mass/Vol] 99.4 mg/dL Normal [facility] Comment on above: Performed By: #### F T3, TSH, LIPID, BMP #### [facility] [address] [address] [address] Ann Watson Cholesterol.total/Betty sterol in HDL [Mass ratio] 3.3 {ratio} Normal [facility] Comment on above: Performed By: #### F T3, TSH, LIPID, BMP #### [facility] [address] [address] [address] Ann Watson HDL NORMAL > or = 60 mg/dl - LO W CARDIOVASCULAR RISK <40 mg/dl - HIGH CARDIOVASCULAR RISK Normal [facility] Comment on above: Performed By: #### F T3, TSH, LIPID, BMP #### [facility] [address] [address] [address] Ann Watson LDL CALC NORMAL SEE BELOW Normal [facility] Comment on above: Result Comment: <100 mg/dl OPTIMAL 100 - 129 mg/dl NEAR OR ABOVE OPTIMAL 130 - 159 mg/dl BORDERLINE HIGH 160 - 189 mg/dl HIGH >190 mg/dl VERY HIGH Performed By: #### F T3, TSH, LIPID, BMP #### [facility] [address] [address] [address] Ann Watson Triglyceride [Mass/Vol] 88 mg/dL Normal <=150 T [facility] Comment on above: Performed By: #### F T3, TSH, LIPID, BMP #### [facility] [address] [address] [address] Ann Watson VLDL CALC 17.6 mg/dL Normal [facility] Comment on above: Performed By: #### F T3, TSH, LIPID, BMP #### [facility] [address] [address] [address] Ann Watson PROF CHEM 8 (BAS METB)on Anion gap [Moles/Vol] 11.5 mmol/L Normal Th e [facility] Comment on above: Performed By: #### F T3, TSH, LIPID, BMP #### [facility] [address] [address] [address] Ann Watson Calcium [Mass/Vol] 8.7 mg/dL Normal 8.5-10.1 [facility] Comment on above: Performed By: #### F T3, TSH, LIPID, BMP #### [facility] [address] [place] [address] Dr. Ann Watson Chloride [Moles/Vol] 106 mmol/L Normal 98-107 [facility] Comment on above: Performed By: #### F T3, TSH, LIPID, BMP #### [facility] [address] [place] [address] Dr. Ann Watson CO2 [Moles/Vol] 27.3 mmol/L Normal 21.0-32.0 [facility] Comment on above: Performed By: #### F T3, TSH, LIPID, BMP #### [facility] [address] [place] [address] Dr. Ann Watson Creatinine [Mass/Vol] 0.57 mg/dL Normal 0.55-1.02 [facility] Comment on above: Performed By: #### F T3, TSH, LIPID, BMP #### [facility] [address] [place] [address] Dr. Ann Watson EGFR-AF NEW ZEALANDER >60 Normal >=60 [facility] Comment on above: Performed By: #### F T3, TSH, LIPID, BMP #### [facility] [address] [place] [address] Dr. Ann Watson EGFR-NON AF NEW ZEALANDER >60 Normal >=60 [facility] Comment on above: Performed By: #### F T3, TSH, LIPID, BMP #### [facility] [address] [place] [address] Dr. Ann Watson Glucose [Mass/Vol] 85 mg/dL Normal 74-106 [facility] Comment on above: Performed By: #### F T3, TSH, LIPID, BMP #### [facility] [address] [place] [address] Dr. Ann Watson Potassium [Moles/Vol] 3.8 mmol/L Normal 3.5-5.1 [facility] Comment on above: Performed By: #### F T3, TSH, LIPID, BMP #### [facility] [address] [address] [address] Ann Watson Sodium [Moles/Vol] 141 mmol/L Normal 136-145 [facility] Comment on above: Performed By: #### F T3, TSH, LIPID, BMP #### [facility] [address] [address] [address] Ann Watson Urea nitrogen [Mass/Vol] 12.0 mg/dL Normal 7.0-18.0 [facility] Comment on above: Performed By: #### F T3, TSH, LIPID, BMP #### [facility] [address] [address] [address] Ann Watson Urea nitrogen/Creatinine [Mass ratio] 21.1 mg/mg Normal [facility] Comment on above: Performed By: #### F T3, TSH, LIPID, BMP #### [facility] [address] [address] [address] Ann Watson TSHon 10-10-2022 TSH 3.064 uIU/mL Normal 0.358-3.740 [facility] Comment on above: Performed By: #### F T3, TSH, LIPID, BMP #### [facility] [address] [address] [address] Ann Watson JERRY Antinuclear Antibodieson 09-01-2022 Antinuclear Abs, IFA Positive Critically abnormal . Comment on above: Order Comment: Reaso n for Exam Hepatitis, autoimmune Result Comment: Nega tive <1:80 Borderline 1:80 Positive >1:80 Performed By: #### S MAB, JERRY #### [facility] , #### CMP, CBC #### [facility] [address] [place] [address] Note 1 Normal . Comment on above: Order Comment: Reaso n [...] titers Nucleosomes, Histones Drug-induced SLE Speckled Sm, OPTION TRADER, SCL-70, SLE,MCTD,PSS (diffuse form), SS-A/SS-B Sjogrens Nucleolar SCL-70, PM-1/SCL High titers Scleroderma, PM/DM Centromere Centromere PSS (limited form) w/Crest syndrome variable Nuclear Dot [id number] Primary Biliary Cirrhosis Nuclear GP210, Primary Biliary Cirrhosis Membrane cory A,B,C Performed at: [facility] - [facility] [address] [id number] Mechanical Equipment Test Engineer: Cyrus Abbott PhD, Phone: [phone] Performed By: #### S MAB, JERRY #### [facility] , #### CMP, CBC #### [facility] [address] Speckled Pattern 1:80 Normal . [facility] Comment on above: Order Comment: Sally bean for Exam Hepatitis, autoimmune Result Comment: ICAP nomenclature: [id number] Performed By: #### S MAB, JERRY #### [facility] , #### CMP, CBC #### [facility] [address] [place] [address] [place] Basophils Auto (Bld) [#/Vol] Ordered By: iNr Zamarripa on 09-01-2022 Basophils (Bld) [#/Vol] 0.1 10*3/uL 0.0-0.2 Basophils/100 WBC Auto (Bld) Ordered By: Nir Zamarripa on 09-01-2022 Basophils/100 WBC (Bld) 0.7 % . F [facility] Body fluid albumin measureme nt (mass/volume)Ordered By: Nir Zamarripa on 09-01-2022 Albumin (Body fld) [Mass/Vol] 3.7 g/dL 3.2-5.5 Complete Blood Count Auto Di ffon 09-01-2022 Basophils (Bld) [#/Vol] 0.1 10*3/uL Normal 0.0-0.2 Comment on above: Order Comment: Reaso n for Exam Hepatitis, autoimmune Result Comment: PERF ORMED BY: [place] [address] PATHOLOGIST SWAGING MACHINE ADJUSTER MADELINE EDGAR M.D. Performed By: #### S MAB, JERRY #### [facility] , #### CMP, CBC #### [address] Basophils/100 WBC (Bld) 0.7 % Normal . [facility] Comment on above: Order Comment: Reaso n for Exam Hepatitis, autoimmune Performed By: #### S MAB, JERRY #### [facility] , #### CMP, CBC #### [address] Eosinophils (Bld) [#/Vol] 0.5 10*3/uL High 0.0-0.45 Comment on above: Order Comment: Reaso n for Exam Hepatitis, autoimmune Performed By: #### S MAB, JERRY #### [facility] , #### CMP, CBC #### [address] Eosinophils/100 WBC (Bld) 7.2 % Normal . Comment on above: Order Comment: Reaso n for Exam Hepatitis, autoimmune Performed By: #### S MAB, JERRY #### [facility] , #### CMP, CBC #### [address] Erythrocyte distribution width (RBC) [Ratio] 13.7 % Normal 11.9-15.3 Comment on above: Order Comment: Reaso n for Exam Hepatitis, autoimmune Performed By: #### S MAB, JERRY #### [facility] , #### CMP, CBC #### [address] Hematocrit (Bld) [Volume fraction] 40.3 % Normal 34.0-46.4 Comment on above: Order Comment: Reaso n for Exam Hepatitis, autoimmune Performed By: #### S MAB, JERRY #### [facility] , #### CMP, CBC #### [address] Hemoglobin (Bld) [Mass/Vol] 13.5 g/dL Normal 11.8-15.4 Comment on above: Order Comment: Reaso n for Exam Hepatitis, autoimmune Performed By: #### S MAB, JERRY #### [facility] , #### CMP, CBC #### [facility] [address] [place] [address] Lymphocytes (Bld) [#/Vol] 2.4 10*3/uL Normal 1.00-4.8 Comment on above: Order Comment: Reaso n for Exam Hepatitis, autoimmune Performed By: #### S MAB, JERRY #### [facility] , #### CMP, CBC #### [address] Lymphocytes/100 WBC (Bld) 33.3 % Normal . Comment on above: Order Comment: Reaso n for Exam Hepatitis, autoimmune Performed By: #### S MAB, JERRY #### [facility] , #### CMP, CBC #### [facility] [address] [place] [address] MCH (RBC) [Entitic mass] 30.2 pg Normal 24.7-34.3 Comment on above: Order Comment: Reaso n for Exam Hepatitis, autoimmune Performed By: #### S MAB, JERRY #### [facility] , #### CMP, CBC #### [address] MCV (RBC) [Entitic vol] 90.6 fL Normal 80-100 F [facility] Comment on above: Order Comment: Reaso n for Exam Hepatitis, autoimmune Performed By: #### S MAB, JERRY #### [facility] , #### CMP, CBC #### [address] Mean Corpuscular HGB Conc 33.4 g/dL Normal 32.0-35.0 Comment on above: Order Comment: Reaso n for Exam Hepatitis, autoimmune Performed By: #### S MAB, JERRY #### [facility] , #### CMP, CBC #### [place] [address] [place] Monocytes (Bld) [#/Vol] 0.5 10*3/uL Normal 0.0-0.8 Comment on above: Order Comment: Reaso n for Exam Hepatitis, autoimmune Performed By: #### S MAB, JERRY #### [facility] , #### CMP, CBC #### [place] [address] [place] Monocytes/100 WBC (Bld) 6.5 % Normal . [facility] Comment on above: Order Comment: Reaso n for Exam Hepatitis, autoimmune Performed By: #### S MAB, JERRY #### [facility] , #### CMP, CBC #### [place] [address] [place] Neutrophils (Bld) [#/Vol] 3.8 10*3/uL Normal 1.8-7.7 Comment on above: Order Comment: Reaso n for Exam Hepatitis, autoimmune Performed By: #### S MAB, JERRY #### [facility] , #### CMP, CBC #### [facility] [address] [place] [address] [place] Neutrophils/100 WBC (Bld) 52.3 % Normal . Comment on above: Order Comment: Reaso n for Exam Hepatitis, autoimmune Performed By: #### S MAB, JERRY #### [facility] , #### CMP, CBC #### [address] NRBC% 0.1 /100{WBC} Normal 0-0.5 Comment on above: Order Comment: Reaso n for Exam Hepatitis, autoimmune Performed By: #### S MAB, JERRY #### [facility] , #### CMP, CBC #### [address] Platelet mean volume (Bld) [Entitic vol] 8.5 fL Normal 6.3-10.7 Comment on above: Order Comment: Reaso n for Exam Hepatitis, autoimmune Performed By: #### S MAB, JERRY #### [facility] , #### CMP, CBC #### [address] Platelets (Bld) [#/Vol] 270 10*3/uL Normal 150-450 Comment on above: Order Comment: Reaso n for Exam Hepatitis, autoimmune Performed By: #### S MAB, JERRY #### [facility] , #### CMP, CBC #### [address] RBC (Bld) [#/Vol] 4.45 10*6/uL Normal 3.60-5.00 [facility] Comment on above: Order Comment: Reaso n for Exam Hepatitis, autoimmune Performed By: #### S MAB, JERRY #### [facility] , #### CMP, CBC #### [address] WBC (Bld) [#/Vol] 7.3 10*3/uL Normal 3.8-11.6 [facility] Comment on above: Order Comment: Reaso n for Exam Hepatitis, autoimmune Performed By: #### S MAB, JERRY #### [facility] , #### CMP, CBC #### [place] [address] [employer] Basophils (Bld) [#/Vol] [id number] 10*3/uL Normal 0.0-0.2 10*3/uL [employer] Other Basophils/100 WBC (Bld) 0.700 % . % N [employer] Other Eosinophils (Bld) [#/Vol] 0.262994425 10*3/uL High 0.0-0.45 10*3/uL [employer] Other Eosinophils/100 WBC (Bld) 7.200 % . % [employer] Other Erythrocyte distribution width (RBC) [Ratio] 13.700 % Normal 11.9-15.3 % [employer] Other Hematocrit (Bld) [Volume fraction] 40.300 % Normal 34.0-46.4 % [employer] Other Hemoglobin (Bld) [Mass/Vol] 13.165513 g/dL Normal 11.8-15.4 g/dL [employer] Other Lymphocytes (Bld) [#/Vol] 2.149248369 10*3/uL Normal 1.00-4.8 10*3/uL [employer] Other Lymphocytes/100 WBC (Bld) 33.300 % . % [employer] Other MCH (RBC) [Entitic mass] 30.2000 pg Normal 24.7-34.3 pg [employer] Other MCV (RBC) [Entitic vol] 90.6000 fL Normal 80-100 fL [employer] Other Monocytes (Bld) [#/Vol] 0.880959401 10*3/uL Normal 0.0-0.8 10*3/uL [employer] Other Monocytes/100 WBC (Bld) 6.500 % . % N [employer] Other Neutrophils (Bld) [#/Vol] 3.827756623 10*3/uL Normal 1.8-7.7 10*3/uL [employer] Other Neutrophils/100 WBC (Bld) 52.300 % . % [employer] Other Platelet mean volume (Bld) [Entitic vol] 8.5000 fL Normal 6.3-10.7 fL [employer] Other WBC (Bld) [#/Vol] 7.481240351 10*3/uL Normal 3.8 -11.6 10*3/uL [employer] Other Complete Blood Count Auto Diff 7.3 10*3/uL Normal 3.8-11.6 10*3/uL [employer] Other Complete Blood Count Auto Diff 33.4 g/dL Normal 32.0-35.0 g/dL [employer] Other Complete Blood Count Auto Diff 0.1 /100{WBC} Normal 0-0.5 /100{WBC} [employer] Other Comprehensive Metabolic Pane [facility] 09-01-2022 Albumin [Mass/Vol] 3.7 g/dL Normal 3.2-5.5 [facility] Comment on above: Order Comment: Reaso n for Exam Hepatitis, autoimmune Performed By: #### S MAB, JERRY #### [facility] , #### CMP, CBC #### [facility] [address] [place] [address] [place] Albumin/Globulin [Mass ratio] 1.7 {ratio} Normal Comment on above: Order Comment: Reaso n for Exam Hepatitis, autoimmune Performed By: #### S MAB, JERRY #### [facility] , #### CMP, CBC #### [facility] [address] [id number] [place] ALP [Catalytic activity/Vol] 64 U/L Normal 32-92 Comment on above: Order Comment: Reaso n for Exam Hepatitis, autoimmune Result Comment: PERF ORMED BY: [place] [address] PATHOLOGIST SWAGING MACHINE ADJUSTER MADELINE EDGAR M.D. Performed By: #### S MAB, JERRY #### [facility] , #### CMP, CBC #### [address] ALT [Catalytic activity/Vol] 14 U/L Normal 10-60 [employer] Other Comment on above: Order Comment: Reaso n for Exam Hepatitis, autoimmune Performed By: #### S MAB, JERRY #### [facility] , #### CMP, CBC #### [address] Anion gap [Moles/Vol] 8.5 mmol/L Normal 6.0-15.0 [facility] Comment on above: Order Comment: Reaso n for Exam Hepatitis, autoimmune Performed By: #### S MAB, JERRY #### [facility] , #### CMP, CBC #### [facility] [address] [place] [address] AST [Catalytic activity/Vol] 16 U/L Normal 10-42 Comment on above: Order Comment: Reaso n for Exam Hepatitis, autoimmune Performed By: #### S MAB, JERYR #### [facility] , #### CMP, CBC #### [facility] [address] [place] [address] [place] Bilirubin [Mass/Vol] 0.5 mg/dL Normal 0.3-1.2 [facility] Comment on above: Order Comment: Reaso n for Exam Hepatitis, autoimmune Performed By: #### S MAB, JERRY #### [facility] , #### CMP, CBC #### [facility] [address] [place] [address] [place] Calcium [Mass/Vol] 9.1 mg/dL Normal 8.2-10.2 [facility] Comment on above: Order Comment: Reaso n for Exam Hepatitis, autoimmune Performed By: #### S MAB, JERRY #### [facility] , #### CMP, CBC #### [facility] [address] [place] [address] Chloride [Moles/Vol] 106 mmol/L Normal 95-114 [facility] Comment on above: Order Comment: Reaso n for Exam Hepatitis, autoimmune Performed By: #### S MAB, JERRY #### [facility] , #### CMP, CBC #### [facility] [address] [place] [address] CO2 [Moles/Vol] 24.6 mmol/L Normal 22.0-30.0 [facility] Comment on above: Order Comment: Reaso n for Exam Hepatitis, autoimmune Performed By: #### S MAB, JERRY #### [facility] , #### CMP, CBC #### [facility] [address] [place] [address] Creatinine [Mass/Vol] 0.64 mg/dL Normal 0.44-1.03 [facility] Comment on above: Order Comment: Reaso n for Exam Hepatitis, autoimmune Performed By: #### S MAB, JERRY #### [facility] , #### CMP, CBC #### [facility] [address] [place] [address] Estimated GFR ( Amalia > 60 [facility] Comment on above: Order Comment: Reaso n for Exam Hepatitis, autoimmune Result Comment: GFR estimated reference range: According to KDOQI guidelines, <60 ml/min/1.73m2 is sufficient to diagnose a patient with chronic kidney disease. Performed By: #### S MAB, JERRY #### [facility] , #### CMP, CBC #### [facility] [address] [place] [address] Estimated GFR (Non- Am > 60 [facility] Comment on above: Order Comment: Reaso n for Exam Hepatitis, autoimmune Performed By: #### S MAB, JERRY #### [facility] , #### CMP, CBC #### [facility] [address] Globulin (S) [Mass/Vol] 2.2 g/dL Normal [facility] Comment on above: Order Comment: Reaso n for Exam Hepatitis, autoimmune Performed By: #### S MAB, JERRY #### [facility] , #### CMP, CBC #### [address] Glucose [Mass/Vol] 80 mg/dL Normal 70-100 [facility] Comment on above: Order Comment: Reaso n for Exam Hepatitis, autoimmune Result Comment: [facility] Glucose Reference Range is dependent on time and content of last meal. Glucose of more than 200 mg/dL in a nonstressed, ambulatory subject supports the diagnosis of Diabetes Mellitus. ADA recommended reference range Performed By: #### S MAB, JERRY #### [facility] , #### CMP, CBC #### [address] Potassium [Moles/Vol] 4.1 mmol/L Normal 3.5-5.1 [facility] Comment on above: Order Comment: Reaso n for Exam Hepatitis, autoimmune Performed By: #### S MAB, JERRY #### [facility] , #### CMP, CBC #### [facility] [address] [place] [address] Protein [Mass/Vol] 5.9 g/dL Low 6.1-7.9 [facility] Comment on above: Order Comment: Reaso n for Exam Hepatitis, autoimmune Performed By: #### S MAB, JERRY #### [facility] , #### CMP, CBC #### [address] Sodium [Moles/Vol] 135 mmol/L Low 136-146 [facility] Comment on above: Order Comment: Reaso n for Exam Hepatitis, autoimmune Performed By: #### S MAB, JERRY #### [facility] , #### CMP, CBC #### [facility] [address] [place] [address] [place] Urea nitrogen [Mass/Vol] 9 mg/dL Normal 9-23 Comment on above: Order Comment: Reaso n for Exam Hepatitis, autoimmune Performed By: #### S MAB, JERRY #### [facility] , #### CMP, CBC #### [facility] [address] [place] [address] [place] Albumin [Mass/Vol] 3.794911 g/dL Normal 3.2-5.5 g/dL [place] [employer] Other Bilirubin [Mass/Vol] 0.2723948 mg/dL Normal 0.3- 1.2 mg/dL [employer] Other Calcium [Mass/Vol] 9.4769095 mg/dL Normal 8.2-10 .2 mg/dL [employer] Other CO2 [Moles/Vol] 24.14533357 mmol/L Normal 22.0-3 0.0 mmol/L [employer] Other Creatinine [Mass/Vol] 0.41840073 mg/dL Normal 0. 44-1.03 mg/dL [employer] Other Potassium [Moles/Vol] 4.00387768 mmol/L Normal 3 .5-5.1 mmol/L [employer] Other Protein [Mass/Vol] 5.185310 g/dL Low 6.1-7.9 g/dL [employer] Other Comprehensive Metabolic Panel > 60 [employer] Other Comprehensive Metabolic Panel 2.2 g/dL [employer] Other Creatinine and Glomerular fi ltration rate.predicted panel (S/P/Bld)Ordered By: Nir Zamarripa on 09-01-2022 Creatinine [Mass/Vol] 0.64 mg/dL 0.44-1.03 [facility] Eosinophils Auto (Bld) [#/Vo l]Ordered By: Nir Zamarripa on 09-01-2022 Eosinophils (Bld) [#/Vol] 0.5 10*3/uL 0.0-0.45 Eosinophils/100 WBC Auto (Bl d)Ordered By: Nir Zamarripa on 09-01-2022 Eosinophils/100 WBC (Bld) 7.2 % . Erythrocyte distribution wid th Auto (RBC) [Ratio]Ordered By: Nir Zamarripa on 09-01-2022 Erythrocyte distribution width (RBC) [Ratio] 13.7 % 11.9-15.3 Erythrocytes [#/volume] in B lood by Automated countOrdered By: Nir Zamarripa on 09-01-2022 RBC (Bld) [#/Vol] 4.45 10*6/uL Normal 3.60-5.00 [facility] Estimated glomerular filtrat ion rate (GFR) non- AmericanOrdered By: Nir Zamarripa on 09-01-2022 GFR/1.73 sq M.predicted among non-blacks MDRD (S/P/Bld) [Vol rate/Area] > 60 mL/Min Globulin Calc (S) [Mass/Vol] Ordered By: Nir Zamarripa on 09-01-2022 Globulin (S) [Mass/Vol] 2.2 g/dL F [facility] Hematocrit Auto (Bld) [Volum e fraction]Ordered By: Nir Zamarripa on 09-01-2022 Hematocrit (Bld) [Volume fraction] 40.3 % 34.0-46.4 Hemoglobin [Mass/volume] in BloodOrdered By: Nir Zamarripa on 09-01-2022 Hemoglobin (Bld) [Mass/Vol] 13.5 g/dL 11.8-15.4 Leukocytes [#/volume] correc kofi for nucleated erythrocytes in Blood by Automated counOrdered By: Nir Zamarripa on 09-01-2022 WBC corrected for nucl RBC Auto (Bld) [#/Vol] 7.3 10*3/uL 3.8-11.6 Lymphocytes Auto (Bld) [#/Vo l]Ordered By: Nir Zamarripa on 09-01-2022 Lymphocytes (Bld) [#/Vol] 2.4 10*3/uL 1.00-4.8 Lymphocytes/100 WBC Auto (Bl d)Ordered By: Nir Zamarripa on 09-01-2022 Lymphocytes/100 WBC (Bld) 33.3 % . MCH Auto (RBC) [Entitic mass ]Ordered By: Nir Zamarripa on 09-01-2022 MCH (RBC) [Entitic mass] 30.2 pg 24.7-34.3 MCHC Auto (RBC) [Mass/Vol]Or dered By: Nir Zamarripa on 09-01-2022 MCHC (RBC) [Mass/Vol] 33.4 g/dL 32.0-35.[address] [facility] MCV Auto (RBC) [Entitic vol] Ordered By: Nir Zamarripa on 09-01-2022 MCV (RBC) [Entitic vol] 90.6 fL 80-100 F [facility] Monocytes Auto (Bld) [#/Vol] Ordered By: Nir Zamarripa on 09-01-2022 Monocytes (Bld) [#/Vol] 0.5 10*3/uL 0.0-0.8 Monocytes/100 WBC Auto (Bld) Ordered By: Nir Zamarripa on 09-01-2022 Monocytes/100 WBC (Bld) 6.5 % . F [facility] Neutrophils Auto (Bld) [#/Vo l]Ordered By: Nir Zamarripa on 09-01-2022 Neutrophils (Bld) [#/Vol] 3.8 10*3/uL 1.8-7.7 Neutrophils/100 WBC Auto (Bl d)Ordered By: Nir Zamarripa on 09-01-2022 Neutrophils/100 WBC (Bld) 52.3 % . No Panel InformationOrdered By: Nir Zamarripa on 09-01-2022 Estimated GFR () > 60 mL/Min Comment on above: GFR estimated refere nce range: According to KDOQI guidelines, <60 ml/min/1.73m2 is sufficient to diagnose a patient with chronic kidney disease. Pharmacy Creatinine Clearance (Chem N/A Nucleated erythrocytes [Pres ence] in Blood by Automated countOrdered By: Nir Zamarripa on 09-01-2022 Nucleated RBC Auto Ql (Bld) 0.1 /100{WBC} 0-0.5 Platelet mean volume Auto (B ld) [Entitic vol]Ordered By: Nir Zamarripa on 09-01-2022 Platelet mean volume (Bld) [Entitic vol] 8.5 fL 6.3-10.7 Platelets [#/volume] in Bloo d by Automated countOrdered By: Nir Zamarripa on 09-01-2022 Platelets (Bld) [#/Vol] 270 10*3/uL Normal 150- 450 10*3/uL Protein [Mass/volume] in Ser um or PlasmaOrdered By: Nir Zamarripa on 09-01-2022 Protein [Mass/Vol] 5.9 g/dL 6.1-7.9 [facility] Serum or plasma alanine martines otransferase measurement without P-5'-P (enzymatic activiOrdered By: Nir Zamarripa on 09-01-2022 ALT No additional P-5'-P [Catalytic activity/Vol] 14 U/L 10-60 Serum or plasma albumin/glob ulin mass ratioOrdered By: Nir Zamarripa on 09-01-2022 Albumin/Globulin [Mass ratio] 1.7 {ratio} Serum or plasma alkaline jessica sphatase measurement (enzymatic activity/volume)Ordered By: Nir Zamarripa on 09-01-2022 ALP [Catalytic activity/Vol] 64 U/L Normal 32-92 U/L Serum or plasma anion gap de terminationOrdered By: Nir Zamarripa on 09-01-2022 Anion gap [Moles/Vol] 8.5 mmol/L 6.0-15.0 [facility] Serum or plasma aspartate am inotransferase measurement (enzymatic activity/volume)Ordered By: Nir Zamarripa on 09-01-2022 AST [Catalytic activity/Vol] 16 U/L Normal 10-42 U/L Serum or plasma calcium sven urement (mass/volume)Ordered By: Nir Zamarripa on 09-01-2022 Calcium [Mass/Vol] 9.1 mg/dL 8.2-10.2 [facility] Serum or plasma chloride capri surement (moles/volume)Ordered By: Nir Zamarripa on 09-01-2022 Chloride [Moles/Vol] 106 mmol/L Normal 95-114 mmol/L Serum or plasma glucose sven urement (mass/volume)Ordered By: Nir Zamarripa on 09-01-2022 Glucose [Mass/Vol] 80 mg/dL Normal 70-100 mg/dL Comment on above: ADA recommended refe rence rangeRandom Glucose Reference Range is dependent on time and content of last meal. Glucose of more than 200 mg/dL in a nonstressed, ambulatory subject supports the diagnosis of Diabetes Mellitus. Serum or plasma potassium me asurement (moles/volume)Ordered By: Nir Zamarripa on 09-01-2022 Potassium [Moles/Vol] 4.1 mmol/L 3.5-5.1 [facility] Serum or plasma sodium measu rement (moles/volume)Ordered By: Nir Zamarripa on 09-01-2022 Sodium [Moles/Vol] 135 mmol/L Low 136-146 mmol/L Serum or plasma total biliru bin measurement (mass/volume)Ordered By: Nir Zamarripa on 09-01-2022 Bilirubin [Mass/Vol] 0.5 mg/dL 0.3-1.2 [facility] Serum or plasma total carbon dioxide measurement (moles/volume)Ordered By: Nir Zamarripa on 09-01-2022 CO2 [Moles/Vol] 24.6 mmol/L 22.0-30.0 [facility] Serum or plasma urea nitroge n measurement (mass/volume)Ordered By: Nir Zamarripa on 09-01-2022 Urea nitrogen [Mass/Vol] 9 mg/dL Normal 9-23 mg/dL Smooth Muscle Antibodyon Smooth Muscle Antibody 17 Normal 0-19 [facility] Comment on above: Order Comment: Reaso n for Exam Hepatitis, autoimmune Result Comment: Nega tive 0 - 19 Weak positive 20 - 30 Moderate to strong positive >30 Actin Antibodies are found in 52-85% of patients with autoimmune hepatitis or chronic active hepatitis and in 22% of patients with primary biliary cirrhosis. Performed at: - [facility] [id number] Mechanical Equipment Test Engineer: Cyrus Abbott PhD, Phone: [phone] PERFORMED BY: [place] [address] PATHOLOGIST SWAGING MACHINE ADJUSTER MADELINE EDGAR M.D. Performed By: #### S MAB, JERRY #### [facility] , #### CMP, CBC #### [address] Smooth Muscle Antibody 17 0-19 No rth Tag'By Other WBC Auto (Bld) [#/Vol]Ordere d By: Nir Zamarripa on 09-01-2022 WBC (Bld) [#/Vol] 7.3 10*3/uL 3.8-11.6 [facility] XR CHEST 2 Von 01-20-2022 XR CHEST [...] by: SALOMÓN CERVANTES Date: 2022-01-20 12:59 Normal [facility] Discharge Planning [id number] 0 10-30-2019 Discharge Planning Note2 Discharge Planning: Anticipated Discharge [id number] Assessment: Discharge Planning Assessment [id number] Stated Reason for Admissionseizures(1) [place] Lives Withsignificant other; adult child(kristofer)(1) Living Arrangementshouse(1) Resource/Environmenta l Concernsnone(1) [place]tic[place](1) Services Anticipated at Transitionnone(1) Nursing Checklist: Lines/Cathetersremove d/appropriate for next level of care Discharge Med Rec Reconciled with [place] Patient has Prescriptionsno prescriptions needed DME equipment orderedN/A Transportation for Discharge Confirmedyes Follow up Reviewedyes Discharge Instructions Reviewed WithPatient and Family Member Discharge Instructions Outcomeverbalize recall/understanding County InvolvementN/A Discharge Instructions Review Completed with Patient/Family (diet, activity, pt instructions)yes Discharge Documentation: Discharge/Transfer Date/[id number] 13:32 Discharge Modeambulatory Discharged Accompanied Byfamily member Transportation Methodprivate car Valuables/Medications /Belongings Returnedyes Security Envelope ReturnedN/A Final DispositionHome Electronic Signatures: Purnima Pritchett (RN) (Signed 30-Oct-2019 13:33) Authored: Discharge Planning Note2 Last Updated: 30-Oct-2019 13:33 by Purnima Pritchett (RN) References: 1. Data Referenced From Patient Profile - Adult v2 28-Oct-2019 10:[address] [facility] Discharge [id number] Discharge Profile2 Discharge Orders: Anticipated Discharge Date: Anticipated Discharge [id number] Hospital Providers: Provider RoleProvider Name Amberly Fay [...] Medication Reconciliation and Orders Completedby Physician Reviewing ProviderVirgil Xie MD (Resident) at 30-Oct-2019 12:16:13 Appointments: Follow-Up Appointment 01: Physician/Dept/[facility]ic [facility] Call to Schedule in4 weeks Scheduled Date/[id number] 16:30 CommentsOrder received after discharge Electronic Signatures: Virgil Xie ( (Resident)) (Signed 30-Oct-2019 12:16) Authored: Discharge Orders, Epilepsy/Seizure, Hospital Course (Home Care/Gold Form), Provider FINAL REVIEW of Orders, Appointments, Gold Form - Air Brake Rigger Summary Halle Nails (PT ACC REP) (Signed 31-Oct-2019 10:49) Authored: Epilepsy/Seizure, Appointments Last Updated: 31-Oct-2019 10:49 by Halle Nails (PT ACC REP) Normal [facility] Daily Progress Note-Epilepsy on 10-29-2019 Daily Progress Note-Epilepsy Service: Epilepsy Subjective Data: 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 Overnight Events: Patient had an uneventful night. Objective Data: Objective Information: T PRBPSpO2 [id number]/7898 % Date/Time10/29 8:152 8: 8: 8: 8:15 Range(36.1C - 36.2C ) (65 - 76 ) (16 - 16 ) (116 - 124 )/ (74 - 78 ) (96% - 98% ) Pain reported at 10/29 8:15: 0 = None Gen: NAD, alert [...] the note. I personally evaluated the patient [id number] Electronic Signatures: Amberly Pressley) (Signed 10-Nov-2019 15:05) Authored: Signature/Cosignature /Attestation Co-Signer: Service, Subjective Data, Objective Data, Assessment and Plan, Signature/Cosignature /Attestation Liane Charles (Fellow)) (Signed 29-Oct-2019 16:37) Authored: Service, Subjective Data, Objective Data, Assessment and Plan, Signature/Cosignature /Attestation Last Updated: 10-Nov-2019 15:05 by Amberly Pressley) Normal [facility] Admission Risk Screen - Adul ton 10-28-2019 Admission Risk Screen - Adult Allergies: Allergies: Phenergan: Unknown doxycycline: Unknown sulfa drugs: Unknown contrast (specific type unknown): Unknown Patient Verification: New W ID Band Applied in my Departmentno Type of ID Patient is WearingW wristband, but not applied here Patient Transferred from Other Facility ([facility], [facility],etc)no Patient Identity Verified Bypatient [...] risk with low risk for associated injury Mckenna Safety InterventionsWDL *orient to call system *instruct [...] Learning Preferencesverbal instruction Cultural Considerationsnone Developmental Considerationsnone Denominational Considerationsnone Learning Assessment (Other Learner): Other learner [...] Spiritual Screen: Are there any cultural, spiritual, latter day practices/values/need s that are important for us to knowno CAGE: Is this an injured patient at a Trauma Center ([facility]/[place]/[facility]/[place]): no Vaccinations: Vaccination - Influenza Vaccination Screen: Is it flu season (between and January 11)Yes Screening for identified contraindications to influenza vaccination patient/caregiver refusal Vaccination - Pneumonia Vaccination Screen: Patient has received a previous pneumonia vaccine:no/unknown... Immunocompetent persons with underlying chronic conditions or reside in supervisor intermediates care facilitieschronic liver disease, including cirrhosis Persons [...] 28-Oct-2019 11:33 by Samara Sanchez (HUSSAIN) Normal [facility] CBC AND DIFFERENTIALon 10-28 % AUTOMATED IMMATURE GRAN 0.4 % Normal 0.0 - 0.9 [facility] Comment on above: Result Comment: Perc ent differential counts (%) should be interpreted in the context of the absolute cell counts (cells/L). Performed By: #### C BCDF #### [facility] [address] [place] [address] Basophils (Bld) [#/Vol] 0.04 10*3/uL Normal 0.00 - 0.[address] [facility] Comment on above: Performed By: #### C BCDF #### [facility] [address] [place] [address] Basophils/100 WBC (Bld) 0.5 % Normal 0.0 - 2.0 [facility] Comment on above: Performed By: #### C BCDF #### [facility] [address] [place] [address] Eosinophils (Bld) [#/Vol] 0.46 10*3/uL Normal 0.00 - 0.70 [facility] Comment on above: Performed By: #### C BCDF #### [facility] [address] [place] [address] Eosinophils/100 WBC (Bld) 5.9 % Normal 0.0 - 6.0 [facility] Comment on above: Performed By: #### C BCDF #### [facility] [address] [place] [address] Erythrocyte distribution width (RBC) [Ratio] 13.1 % Normal 11.5 - 14.5 [facility] Comment on above: Performed By: #### C BCDF #### [facility] [address] [place] [address] Hematocrit (Bld) [Volume fraction] 41.4 % Normal 36.0 - 46.0 [facility] Comment on above: Performed By: #### C BCDF #### [facility] [address] [place] [address] Hemoglobin (Bld) [Mass/Vol] 13.9 g/dL Normal 12.0 - 16.0 [facility] Comment on above: Performed By: #### C BCDF #### [facility] [address] [place] [address] Lymphocytes (Bld) [#/Vol] 2.45 10*3/uL Normal 1.20 - 4.80 [facility] Comment on above: Performed By: #### C BCDF #### [facility] [address] [place] [address] Lymphocytes/100 WBC (Bld) 31.2 % Normal 13.0 - 44.0 [facility] Comment on above: Performed By: #### C BCDF #### [facility] [address] [place] [address] MCHC (RBC) [Mass/Vol] 33.6 g/dL Normal 32.0 - 36.0 [facility] Comment on above: Performed By: #### C BCDF #### [facility] [address] [place] [address] MCV (RBC) [Entitic vol] 90 fL Normal 80 - 100 [facility] Comment on above: Performed By: #### C BCDF #### [facility] [address] [place] [address] Monocytes (Bld) [#/Vol] 0.59 10*3/uL Normal 0.10 - 1.[address] [facility] Comment on above: Performed By: #### C BCDF #### [facility] [address] [place] [address] Monocytes/100 WBC (Bld) 7.5 % Normal 2.0 - 10.0 [facility] Comment on above: Performed By: #### C BCDF #### [facility] [address] [place] [address] Neutrophils (Bld) [#/Vol] 4.29 10*3/uL Normal 1.20 - 7.70 [facility] Comment on above: Performed By: #### C BCDF #### [facility] [address] [place] [address] Neutrophils/100 WBC (Bld) 54.5 % Normal 40.0 - 80.0 [facility] Comment on above: Performed By: #### C BCDF #### [facility] [address] [place] [address] Nucleated RBC/100 WBC (Bld) [Ratio] 0.0 /100 WBC Normal 0.0-0.0 [facility] Comment on above: Performed By: #### C BCDF #### [facility] [address] [place] [address] Platelets (Bld) [#/Vol] 254 10*3/uL Normal 150 - 450 [facility] Comment on above: Performed By: #### C BCDF #### [facility] [address] [place] [address] RBC (Bld) [#/Vol] 4.60 x10E12/L Normal 4.00 - 5.20 [facility] Comment on above: Performed By: #### C BCDF #### [facility] [address] [place] [address] WBC (Bld) [#/Vol] 7.9 10*3/uL Normal 4.4 - 11.3 [facility] Comment on above: Performed By: #### C BCDF #### [facility] [address] [place] [address] COMPREHENSIVE PANELon 2019 Albumin [Mass/Vol] 4.2 g/dL Normal 3.4 - 5.0 [facility] Comment on above: Performed By: #### C MP #### [facility] [address] [place] [address] ALP [Catalytic activity/Vol] 73 U/L Normal 33 - 110 [facility] Comment on above: Performed By: #### C MP #### [facility] [address] [place] [address] ALT [Catalytic activity/Vol] 8 U/L Normal 7 - 45 [facility] Comment on above: Result Comment: Tabatha ents treated with Sulfasalazine may generate falsely decreased results for ALT. Performed By: #### C MP #### [facility] [address] [place] [address] Anion gap [Moles/Vol] 11 mmol/L Normal 10 - 20 [facility] Comment on above: Performed By: #### C MP #### [facility] [address] [place] [address] AST [Catalytic activity/Vol] 11 U/L Normal 9 - 39 [facility] Comment on above: Performed By: #### C MP #### [facility] [address] [place] [address] Bilirubin [Mass/Vol] 0.5 mg/dL Normal 0.0 - 1.2 [facility] Comment on above: Performed By: #### C MP #### [facility] [address] [place] [address] Calcium [Mass/Vol] 9.4 mg/dL Normal 8.6 - 10.6 [facility] Comment on above: Performed By: #### C MP #### [facility] [address] [place] [address] Chloride [Moles/Vol] 108 mmol/L High 98 - 107 [facility] Comment on above: Performed By: #### C MP #### [facility] [address] [place] [address] Creatinine [Mass/Vol] 0.55 mg/dL Normal 0.50 - 1.05 [facility] Comment on above: Performed By: #### C MP #### [facility] [address] [place] [address] GFR- AM. >60 Normal >60 [facility] Comment on above: Result Comment: CALC ULATIONS OF ESTIMATED GFR ARE PERFORMED USING THE MDRD STUDY EQUATION FOR THE IDMS-TRACEABLE CREATININE METHODS. CLIN CHEM 2007;53:766-72 Performed By: #### C MP #### [facility] [address] [place] [address] GFR-NON AM. >60 Normal >60 [facility] Comment on above: Performed By: #### C MP #### [facility] [address] [place] [address] Glucose [Mass/Vol] 77 mg/dL Normal 74 - 99 [facility] Comment on above: Performed By: #### C MP #### [facility] [address] [place] [address] HCO3 (Bld) [Moles/Vol] 27 mmol/L Normal 21 - 32 [facility] Comment on above: Performed By: #### C MP #### [facility] [address] [place] [address] Potassium [Moles/Vol] 3.7 mmol/L Normal 3.5 - 5.3 [facility] Comment on above: Performed By: #### C MP #### [facility] [address] [place] [address] Protein [Mass/Vol] 6.3 g/dL Low 6.4 - 8.2 [facility] Comment on above: Performed By: #### C MP #### [facility] [address] [place] [address] Sodium [Moles/Vol] 142 mmol/L Normal 136 - 145 [facility] Comment on above: Performed By: #### C MP #### [facility] [address] [place] [address] Urea nitrogen [Mass/Vol] 8 mg/dL Normal 6 - 23 [facility] Comment on above: Performed By: #### C MP #### [facility] [address] [place] [address] History and Physical - Neuro -Epilepsyon 10-28-2019 [...] frequently. The patient first sought treatment at [facility] Neurology ([place]), who performed an EEG [...] Due to recurrent symptoms she presented to [facility]-ED and had CT which she was [...] had a routine EEG in February 2018 ([facility]), which described a normal EEG with good background, but occasionally featured sharply contoured waves though did not give location. Epilepsy risk factors - Born at term by after uneventful , with no known complications at . - Normal developmental milestones - No history of febrile convulsion or SUPERVISOR REFINING infections. - No family history of epilepsy. - No history of major head trauma with loss of consciousness. - No history of SUPERVISOR REFINING surgery. REVIEW OF SYSTEMS: 14 system review negative except for mentioned above. 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 Objective Information: Objective Information: T PRBPSpO2 [id number]/8010 0% Date/Time10/28 10: 11: 11 11:00 Range(36.5C - 36.5C ) (80 - [...] light touch all 4 extremities. COORDINATION: - Ukkqwj-Gzhc-Vzeetk: intact without dysmetria or overshoot in both [...] the note. I personally evaluated the patient [id number] Attending Provider Inpatient Certification StatementI certify this patients need for inpatient care based on the above documentation including; the order to admit as inpatient, the anticipated length of stay, diagnosis, problem list and plan of care, and discharge plan. Admission Order - View OnlyCurrent Admission Order. Admit to Inpatient Adult [facility] Admitting Diagnosis, R56.9 Seizure Admitting Service, Neurology [...] Profile - Adult v2 28-Oct-2019 10:[address] [facility] Patient Profile - Adult v2on 10-28-2019 Patient Profile - Adult v2 Profile: Initial Info: How to be Addressedjill Spoken Language PreferredEnglish Are you currently using the Personal Electronic Health Record or Bsmarkyes Stated Reason for Admissionseizures Wants Family/Rep Notified of Admissionn/a; family present Notify PCPdo not notify PCP Informed of Patient [place] Patient Belongingsremains with patient Medications Brought to Hospitalno General Health: Weight in kg86.6 kilogram(s) Weight in lki792 pound(s) Height in feet5 feet Height in inches3 inch(es) Height in cm160 centimeter(s) BMI (kg/m2)33.828 square meter Weight Methodstated Scale Typebed Height Methodstated [facility] Based Care: How would you like to [...] Living Arrangementshouse Resource/Environmenta l Concernsnone Anticipated Transition [place] Services Anticipated at Transitionnone Significant IndicatorsComplete Information [...] 28-Oct-2019 11:37 by Samara Sanchez (HUSSAIN) Normal [facility] Chart Updateon 10-25-2019 Chart Update Active Problems Chronic headaches (784.0) (R51) Classic migraine with aura (346.00) (G43.109) Common migraine without aura (346.10) (G43.009) Facial numbness (782.0) (R20.0) Hemisensory deficit (781.99) (R29.818) Nonspecific paroxysmal spell (780.09) (R40.4) Sensory disturbance (782.0) (R20.9) Spell of dizziness (780.4) (R42) Chart Update Progress Note Free Text_UH: Supplemental records obtained from [facility]. Pertinent summary below: 01/18/2018 Presented to [facility] ED with numbness of the right [...] ASA 81mg for paresthesias. 02/17/2018 Presented to [facility] ED with right-sided facial numbness and [...] from prolonged EEG monitoring. 12/07/2018 Presented to [facility] ED with multiple vague complaints of dizziness (no vertigo), funny feeling on the right side of her face (worse when standing up). Reported a history of seizures but an intolerance for levetiracetam. Denied headache, neck stiffness. No other symptoms. Exam was normal. CT head was unremarkable. Advised to increase fluid increase fluids and was discharged home. 02/01/2019 Presented to [facility] ED with palpitations and arrhythmia, feeling like her heart was skipping beats. Denied any nausea, SOB, CP. No recent illness. No fevers, chills, diarrhea, abdominal pain. Would occur several times a minute initially, then became less frequent. Observed to have PVCs on exam. Discharged home with Holter (unknown if had placed). 06/12/2019 Presented to [facility] ED with nausea, vomiting, and diarrhea. Reported using multiple scopolamine patches (5 patches in 6 days, Rxd for 1 patch every 3 days; reported more given getting wet while scuba-diving). Noted she felt nauseated with blurred vision, dry mouth, urinary frequency, and warm/heavy feeling in her body. No confusion, agitation, or hallucinations. [place] to be dehydrated. Given fluids and discharged. 06/14/2019 Presented to [facility] ED with severe nausea, vomiting, dizziness, lightheadedness, blurry vision, diarrhea, and headache. Had recently removed a scopolamine patch after a cruise to the [facility]. Stated also her seizures are acting up, which she relayed were focal, left-sided seizures that cant be seen. Not on AEDs, but reported seeing a neurologist at [facility]. Exam was unremarkable, though noted to be anxious and tearful. CT head was normal. Given Flagyl 500mg PO (c/f GI illness after recent trip) and discharged home. 07/19/2019 Presented to [facility] ED with dizziness. Stated she thinks [...] visit. Alvino Beltrán MD [facility] Pager: [phone] Signatures Electronically signed by : Didier Beltrán MD; Oct 25 2019 1:55PM EST (Author) Normal [facility] Vital Signs Date Time Vital Sign Value Performing Clinician Facility 10-15-2023 14:51-0500 Body height 160 cm Shaikh Jose ADAM Work Phone: [facility] 10-15-2023 14:51-0500 Body mass index (BMI) [Ratio] 38.09 kg/m2 Shaikh Jose ADAM Work Phone: [facility] 10-15-2023 14:51-0500 Body temperature 96.91 [degF] Shaikh Jose ADAM Work Phone: [facility] 10-15-2023 14:51-0500 Body weight 97.52 kg Shaikh Jose ADAM Work Phone: [facility] 10-15-2023 14:51-0500 Diastolic blood pressure 80 mm[Hg] Shaikh Jose ADAM Work Phone: [facility] 10-15-2023 14:51-0500 Heart rate 79 /min Shaikh Jose ADAM Work Phone: [facility] 10-15-2023 14:51-0500 SaO2% (BldA) [Mass fraction] 96 % Shaikh Jose ADAM Work Phone: [facility] 10-15-2023 14:51-0500 Systolic blood pressure 100 mm[Hg] Shaikh Jose ADAM Work Phone: [facility] 04-30-2023 15:00-0400 Body height 160.02 cm Faina Miller Other [facility] Other 04-30-2023 15:00-0400 Body mass index (BMI) [Ratio] 36.1 kg/m2 Faina Miller Other [facility] Other 04-30-2023 15:00-0400 Body temperature 98 [degF] Faina Miller Other [facility] Other 04-30-2023 15:00-0400 Body weight 92.44 kg Faina Miller Other [facility] Other 04-30-2023 15:00-0400 Diastolic blood pressure 76 mm[Hg] Faina Miller Other [facility] Other 04-30-2023 15:00-0400 Respiratory rate 18 /min Faina Miller Other [facility] Other 04-30-2023 15:00-0400 SaO2% (BldA) [Mass fraction] 99 % Faina Miller Other [facility] Other 04-30-2023 15:00-0400 Systolic blood pressure 122 mm[Hg] Faina Miller Other [facility] Other 12-16-2021 16:30-0400 Body height 160.02 cm Nir Zamarripa Other [facility] Other 12-16-2021 16:30-0400 Body mass index (BMI) [Ratio] 31.35 kg/m2 Nir Zamarripa Other [facility] Other 12-16-2021 16:30-0400 Body weight 80.29 kg Nir Zamarripa Other [facility] Other 10-23-2021 15:55-0500 Body height 160.02 cm Ellie Kemp Other [facility] Other 10-23-2021 15:55-0500 Body mass index (BMI) [Ratio] 31.35 kg/m2 Ellie Kemp Other [facility] Other 10-23-2021 15:55-0500 Body temperature 97.9 [degF] Ellie Kemp Other [facility] Other 10-23-2021 15:55-0500 Body weight 80.29 kg Ellie Kemp Other [facility] Other 10-23-2021 15:55-0500 Diastolic blood pressure 90 mm[Hg] Ellie Kemp Other [facility] Other 10-23-2021 15:55-0500 Respiratory rate 18 /min Ellie Kemp Other [facility] Other 10-23-2021 15:55-0500 SaO2% (BldA) [Mass fraction] 99 % Ellie Kemp Other [facility] Other 10-23-2021 15:55-0500 Systolic blood pressure 143 mm[Hg] Ellie Kemp Other [facility] Other 09-24-2021 15:00-0500 Body height 160.02 cm Nir Dallin Other [facility] Other 09-24-2021 15:00-0500 Body mass index (BMI) [Ratio] 29.23 kg/m2 Nir Zamarripa Other [facility] Other 09-24-2021 15:00-0500 Body weight 74.84 kg Nir Zamarripa Other [facility] Other Encounters Encounter Date Encounter Type Care Provider Facility Start: 10-23-2023 Clinisync Result Encounter Shaikh Jose ADAM Work Phone: [facility] External Department Unsolicited Start: 10-23-2023 Clinisync Result Encounter Shaikh Jose ADAM Work Phone: [facility] External [facility] Unsolicited Start: 10-22-2023 Orders Only Shaikh Jose ADAM Work Phone: [facility] Comment on above: Bilateral lower extr emity edema (Primary Dx) Start: 10-15-2023 End: 10-15-2023 ambulatory SHAIKH JOSE Not Available Start: 10-15-2023 End: 10-15-2023 Office outpatient visit 25 minutes Shaikh Jose ADAM Work Phone: [facility] Comment on above: Bilateral lower extr emity edema (Primary Dx); Screening for hyperlipidemia; Screening for diabetes mellitus; Autoimmune hepatitis treated with steroids (CMS/HCC) Start: 10-15-2023 Bamlilliano flowsheet Shaikh Jose ADAM Work Phone: [facility] Start: 10-15-2023 Bamlilliano flowsheet Shaikh Jose ADAM Work Phone: [facility] Start: 10-15-2023 Clinisync Result Encounter Shaikh Jose ADAM Work Phone: [facility] External [facility] Unsolicited Start: 09-25-2023 End: 09-25-2023 ambulatory BREE Rachel BENITEZ Not Available Start: 08-31-2023 End: 08-31-2023 ambulatory YARELIS MALIK Not Available Start: 08-27-2023 End: 08-28-2023 ambulatory Viral Lewis MD Facility:[facility] Start: 05-05-2023 End: 05-05-2023 ambulatory Faina Miller Other Auth0 Other Start: 05-05-2023 Telephone encounter Faina Miller [facility] [address] Start: 04-30-2023 End: 04-30-2023 Departed Referred CERTIFIED DRIVER EXAMINER Faina Miller Work Phone: [facility] [place] Work Phone: Start: 04-30-2023 End: 04-30-2023 ambulatory Faina Miller [facility] [employer] Other Start: 04-30-2023 Office outpatient visit 15 minutes Faina Miller [facility] Start: 01-13-2023 End: 01-14-2023 ambulatory Viral Lewis MD Facility:[facility] Start: 11-05-2022 End: 11-06-2022 ambulatory BOWERS H FANorbertoDELuke Facility: Start: 10-29-2022 End: 10-30-2022 ambulatory Viral Lewis MD Facility:[facility] Start: 10-14-2022 Encounter for genera l adult medical examination without abnormal findings DR VIRAL LEWIS [facility] Start: 10-10-2022 End: 10-11-[address] VIRAL LEWIS Facility: Start: 10-10-2022 End: 10-11-2022 Encounter for general adult medical examination without abnormal findings DR VIRAL LEWIS Facility: Start: 09-03-2022 End: 09-03-2022 ambulatory Nir Zamarripa Other [facility] [employer] Other Start: 09-03-2022 Telephone encounter Nir vogel [facility] Start: 09-01-2022 End: 09-01-2022 ambulatory Viral Lewis Facility: Start: 09-01-2022 End: 09-01-2022 Patient encounter procedure MD Viral Lewis Work Phone: [facility] [place] Start: 09-01-2022 End: 09-01-2022 ambulatory MD Viral Lewis Work Phone: [facility] Work Phone: Start: 09-01-2022 Telephone encounter Nir Valdez jaspreet [facility] Start: 01-20-2022 End: 01-21-2022 ambulatory SHAIKH Vivian GARCIA Facility:[facility] Start: 12-16-2021 End: 12-16-2021 ambulatory Nir Zamarripa Other Auth0 Other Start: 12-16-2021 Patient encounter procedure Nir Zamarripa [facility] Start: 10-23-2021 End: 10-23-2021 ambulatory Ellie Kemp Other Auth0 Other Start: 10-23-2021 Office outpatient visit 15 minutes Ellie Viridiana [facility] Start: 10-21-2021 End: 10-21-2021 ambulatory Nir Dallin Other Auth0 Other Start: 10-21-2021 Telephone encounter Nir vogel [facility] Start: 10-11-2021 End: 10-11-2021 ambulatory Nir Zamarripa Other Auth0 Other Start: 10-11-2021 Telephone encounter Nir vogel [facility] Start: 09-24-2021 End: 09-24-2021 ambulatory Nir Dallin Other Auth0 Other Start: 09-24-2021 Office outpatient visit 15 minutes Nir Dallin [facility] Start: 02-14-2020 Patient encounter procedure Elian Buczek BO-Wfabkhcsx-IcvrpmdChi [facility] [address] Work Phone: Start: 10-03-2019 Patient encounter procedure Elian Buczek SE-Lzlkbsjcx-KrbzcitChi [facility] [address] Work Phone: Start: 05-04-2018 Patient encounter procedure Elian Buczek AQ-Lnaejzuuy-JborlaeChi [facility] [address] Work Phone: Start: 03-05-2018 Patient encounter procedure Elian Doherty DY-Efcvxksmt-VudcwdwChi [facility] [address] Work Phone: Procedures Date Procedure Procedure Detail Performing Clinician Start: 10-23-2023 [facility] D-DIMER Shaikh Efrain crowell MD Work Phone: Start: 10-15-2023 ALL CBC WITH AUTO DIFF Shaikh Jose ADAM Work Phone: Start: 01-13-2023 Mammography Shaikh Efrain crowell MD Work Phone: Start: 03-20-2020 Follow-up visit Start: 02-14-2020 Follow-up visit Start: 10-03-2019 Follow-up visit Plan of Treatment Date Care Activity Detail Author Start: 01-14-2024 Screening for malignant neoplasm of breast Mammogram [facility] Start: 12-10-2023 ambulatory Ambulatory Facility:[facility] Start: 10-15-2023 End: 10-15-2023 Patient encounter procedure 10/15/2023 2:45 PM EST Office Visit [facility] [address] [place] [phone] Shaikh Garcia MD [address] [place] [phone] Arrived [facility] Comment on above: Arrived Start: 10-15-2023 End: 10-15-2024 CBC W Auto Differential panel - Blood CBC and differential Lab Routine Bilateral lower extremity edema Autoimmune hepatitis treated with steroids (CMS/HCC) Expected: 10/15/2023 (Approximate), Expires: 10/15/2024 [facility] Comment on above: Expected: 10/15/2023 (Approximate), Expires: 10/15/2024 Start: 10-15-2023 End: 10-15-2024 Comprehensive metabolic 2000 panel - Serum or Plasma Comprehensive metabolic panel Lab Routine Bilateral lower extremity edema Autoimmune hepatitis treated with steroids (CMS/HCC) Expected: 10/15/2023 (Approximate), Expires: 10/15/2024 [facility] Comment on above: Expected: 10/15/2023 (Approximate), Expires: 10/15/2024 Start: 10-15-2023 End: 10-15-2024 Creatinine [Mass/volume] in Urine Creatinine, urine, random Lab Routine Bilateral lower extremity edema Expected: 10/15/2023 (Approximate), Expires: 10/15/2024 [facility] Comment on above: Expected: 10/15/2023 (Approximate), Expires: 10/15/2024 Start: 10-15-2023 End: 10-15-2024 Hemoglobin A1c measurement Hemoglobin A1c Lab Routine Screening for diabetes mellitus Expected: 10/15/2023 (Approximate), Expires: 10/15/2024 [facility] Comment on above: Expected: 10/15/2023 (Approximate), Expires: 10/15/2024 Start: 10-15-2023 End: 10-15-2024 Lipid 1996 panel - Serum or Plasma Lipid panel Lab Routine Screening for hyperlipidemia Expected: 10/15/2023 (Approximate), Expires: 10/15/2024 [facility] Comment on above: Expected: 10/15/2023 (Approximate), Expires: 10/15/2024 Start: 10-15-2023 End: 10-15-2024 Protein, urine, random Protein, urine, random Lab Routine Bilateral lower extremity edema Expected: 10/15/2023 (Approximate), Expires: 10/15/2024 [facility] Comment on above: Expected: 10/15/2023 (Approximate), Expires: 10/15/2024 Start: 10-15-2023 End: 10-15-2024 Vascular US lower extremity venous insufficiency bilateral Vascular US lower extremity venous insufficiency bilateral Imaging Routine Bilateral lower extremity edema Expected: 10/15/2023, Expires: 10/15/2024 [facility] Work Phone: Comment on above: Expected: 10/15/2023 , Expires: 10/15/2024 Start: 04-30-2023 Start: 2007 Screening for malignant neoplasm of cervix [facility] Start: 1998 Screening for malignant neoplasm of cervix Pap Smear [facility] Start: 1977 Screening for malignant neoplasm of colon [facility] Actin smooth muscle IgG Ab [Units/volume] in Serum [facility] Work Phone: Atopobium vaginae DN A [Presence] in Vaginal fluid by ABRAHAN with probe detection Bacterial vaginosis associated bacterium 2 DNA [Presence] in Vaginal fluid by ABRAHAN with probe detection Homogenous nuclear A b pattern [Titer] in Serum [facility] Work Phone: Megasphaera sp type 1 DNA [Presence] in Vaginal fluid by ABRAHAN with probe detection Nuclear Ab [Titer] i n Serum [facility] Work Phone: RV-Rkvxtdchf-Iw agri [facility] [address] Work Phone: NEGATED: Highlighted row has been ruled out! Planned Goals not documented BX-Qypmyeumo-Vpysvh [facility] [address] Work Phone: Immunizations Immunization Date Immunization Notes Care Provider [facility] 04-24-2023 Influenza, injectabl e, Madin Anupama Canine Kidney, preservative free, quadrivalent Shaikh Jose ADAM Work Phone: [facility] 03-09-2023 tetanus toxoid, redu chris diphtheria toxoid, and acellular pertussis vaccine, adsorbed Shaikh Jose ADAM Work Phone: [facility] 05-05-1983 diphtheria, tetanus toxoids and acellular pertussis vaccine Shaikh Jose ADAM Work Phone: [facility] 05-05-1983 poliovirus vaccine, inactivated Shaikh Jose ADAM Work Phone: [facility] 06-26-1979 diphtheria, tetanus toxoids and acellular pertussis vaccine Shaikh Jose ADAM Work Phone: [facility] 06-26-1979 poliovirus vaccine, inactivated Shaikh Jose ADAM Work Phone: [facility] 04-15-1979 measles, mumps and rubella virus vaccine Shaikh Jose ADAM Work Phone: [facility] 07-14-1978 diphtheria, tetanus toxoids and acellular pertussis vaccine Shaikh Jose ADAM Work Phone: [facility] 07-14-1978 poliovirus vaccine, inactivated Shaikh Jose ADAM Work Phone: [facility] 05-07-1978 diphtheria, tetanus toxoids and acellular pertussis vaccine Shaikh Jose ADAM Work Phone: [facility] 05-07-1978 poliovirus vaccine, inactivated Shaikh Jose ADAM Work Phone: [facility] 02-26-1978 diphtheria, tetanus toxoids and acellular pertussis vaccine Shaikh Jose ADAM Work Phone: [facility] 02-26-1978 poliovirus vaccine, inactivated Shaikh Jose ADAM Work Phone: [facility] Payers Date Payer Category Payer Self-pay [id number] 2021 Unknown 1975 Unknown [id number] 2.16.84 [id number] 1975 Unknown [id number] 2.16.84 [id number] 1977 Unknown [id number] 2.16.84 [id number] 1977 Unknown [id number] 2.16. [id number] 1977 Unknown [id number] 2.16. 840.1.262300.3.579.2.196 1977 Unknown [id number] 2.16. [id number] 1977 Unknown [id number] 2.16. 840.1.031364.3.579.2.196 1977 Unknown [id number] 2.16. 840.1.897560.3.579.2.196 1977 Unknown [id number] 2.16.84 0.1.809017.3.579.2.1259 1977 Unknown [id number] 2.16.84 0.1.764254.3.579.2.1259 1977 Unknown [id number] 2.16.840 .[id number] 1957 [facility] CBN [id number] [id number] Unknown [id number] 2.16.8 [id number] Unknown [id number] 2.16.8 40.1.188874.3.579.2.531 Social History Date Type Detail Facility Start: 09-25-2023 End: 10-15-2023 Sex Assigned At Auth0 Other Start: 07-19-2019 End: 04-07-2023 Tobacco smoking status NHIS Never smoked tobacco (finding) Start: 1975 Sex Assigned At Female Start: 04-07-2023 Tobacco use and exposure Smokeless tobacco non-user [facility] Start: 09-25-2023 End: 10-15-2023 Alcohol intake Lifetime non-drinker (finding) [facility] Start: 09-25-2023 End: 10-15-2023 History of Social function [facility] Start: 05-08-2023 Alcohol Comment Caffeine: soda [facility] Start: 1975 Sex Assigned At Not on file [facility] NEGATED: Highlighted row - - [facility] [address] Work Phone: Functional Status Date Assessment Result Facility NEGATED: Highlighted row Functional performance Functional status health issues are not documented Disease [facility] [address] Work Phone: Mental Status Date Assessment Result Facility NEGATED: Highlighted row Cognitive function [Interpretation] Cognitive status health issues are not documented Disease [facility] [address] Work Phone: Clinical Notes [...] improve, for Recheck. documented in this encounter [facility] 04-30-2023 Evaluation note Encounter Date Diagnosis Assessment [...] reaction. Patient to follow with PCP or CIRCUS ROUSTABOUT as needed for persistent or worsening symptoms. Immediate eval if abdominal pain, fever, chills, body aches, back/flank pain, nausea, urinary complaints. Avoid douching and sexual activity at this time. Patient verbalizes understanding and is agreeable to treatment plan. Auth0 Other 05-03-2023 NoteBREAST IMAGING CONSULTATION: 01/13/2023 CLINICAL: Screening. Comparison is made to exams dated: 12/27/2021 mammogram and 12/25/2020 mammogram - [facility]. The tissue of both breasts is heterogeneously [...] may not be detected on mammograms. The [employer] supports annual screening mammography starting at age 40. Mandy Daly MD [facility]/albertrad:01/14/2023 11:18:17 Chocolate Maker(s): RT Sharath(Johny)(M), [facility] letter sent: New Mammo Normal B1/2 Mammogram BI-RADS: 2 Benign Final Dictated by: Mandy Daly MD Signed by: Mandy Daly MD Signed (Electronic Signature): 01/14/2023 11:18 am (If Report Is Signed, Electronically Signed in Other Vendor System)[facility]02-12-2023 NotePatient Education Materials Name: Trudy Ridley Current Date: 10/26/2022 08:09:43 [facility] : 1975 The following sheet(s) are the [...] breast self-examination (BSE). These experts include the [employer], the U.S. Preventive ServicesTask Force, and the [employer]. Some experts [...] This means they are not cancer. ? [phone] [employer]. [address] [place] [address]. All rights reserved. This information is not intended as a substitute for professional medical care. Always follow your healthcare professional's instructions.[facility]12-19-2022 Evaluation note* Encounter Date Diagnosis Assessment Notes Treatment Notes Treatment Clinical Notes Aug, Hepatitis, autoimmune (ICD-10 - K75.4) Auth[employer] Other 04-04-2022 Evaluation note* Encounter Date Diagnosis [...] - R10.9) PATIENT DOES EXPERIENCE THIS DISCOMFORT. Auth[employer] Other 02-09-2022 Evaluation note* Encounter Date Diagnosis [...] days. Oct, Vaginal irritation (ICD-10 - N89.8) [employer] Other 02-07-2022 Evaluation note* Encounter Date Diagnosis Assessment Notes Treatment Notes Treatment Clinical Notes Oct, Dysphagia (ICD-10 - R13.10) [facility] Other 01-28-2022 Evaluation note* Encounter Date Diagnosis Assessment Notes Treatment Notes Treatment Clinical Notes Sep, Hepatitis, autoimmune (ICD-10 - K75.4) Sep, Vomiting (ICD-10 - R11.10) Sep, Fatigue (ICD-10 - R53.83) Auth0 Other 01-11-2022 Evaluation note* Encounter Date Diagnosis [...] K20.0) RESTART THE SINGUL[employer]IR AND COMPLETE FMLA Auth0 Other Evaluation noteNo assessment information available [facility] Work Phone: Evaluation noteNo InformationNort Tag'By Other Evaluation note* Diagnosis Bilateral lower extremity edema- Primary Screening for hyperlipidemia Screening for lipoid disorders Screening for diabetes mellitus Autoimmune hepatitis treated with steroids (CMS/HCC) [facility] Diagnosis Bilateral lower extremity edema- Primary documented in this encounter [facility] HealthcareHistory general Narrative - Reported* Type Description [...] Surgical History hysterectomy Hospitalization History see above Auth0 Other History general Narrative - Reported* Type [...] Surgical History hysterectomy Hospitalization History see above Auth0 Other Family History Child Name Dates Details Family history of [...] Z82.49) Status:Active Family history of diabetes m halina(V18.0, Z83.3) Status:Active Family history of hypertensi on(V17.49, Z82.49) Status:Active Family history of malignant neoplasm of prostate(V16.42, Z80.42) Status:Active Summary Purpose Advance Directives Advance Directive Response Recorded Date/ Time Advance Directives No May 9:27pm Advance Directive Response Recorded Date/ Time Advance Directives No May 10:27pm Chief Complaint and Reason for Visit Chief Complaint K75.4 Reason for Referral Specialty Diagnoses / Procedures Referred By Contmarily t Referred To Contact Radiology Diagnoses Bilateral lower extremity edema Procedures Vascular US lower extremity venous insufficiency bilateral Shaikh Garcia MD [address] [place] [address] [facility] [address] [place] [address] Phone: [phone] Referral ID Status Reason Start Date Expiration Date V isits Requested Visits Authorized [id number] Authorized 10/15/2023 04/12/2024 1 1 Additional Source Comments INFORMATION SOURCE (unrecogn ized section and content) DATE CREATED AUTHOR 04/06/2020 [facility] DATE CREATED AUTHOR AUTHOR'S ORGANIZ ATION 04/06/2020 [employer] DATE CREATED AUTHOR AUTHOR'S ORGANIZ ATION 11/09/2022 [facility] DATE CREATED AUTHOR AUTHOR'S ORGANIZ ATION 05/09/2023 [facility] DATE CREATED AUTHOR AUTHOR'S ORGANIZ ATION 10/09/2023 [facility] DATE CREATED AUTHOR AUTHOR'S ORGANIZ ATION 10/17/2023 [facility] EPIC REASON FOR VISIT (unrecogniz [...] Dates Faina Miller APRN Attending Provider Active Compliance Lead Relationship Specialty Start Date End Date Viral Lewis MD [address] [place] [phone] PCP - General Family Medicine 10/15/23 Compliance Lead Relationship Specialty Start Date End Date Viral Lewis MD [address] [place] [phone] PCP - General Family Medicine 10/15/23 Compliance Lead Relationship Specialty Start Date End Date Viral Lewis MD [address] [place] [phone] PCP - General Family Medicine 10/15/23 Compliance Lead Relationship Specialty Start Date End Date Viral Lewis MD [address] [place] [phone] PCP - General Family Medicine 10/15/23 Compliance Lead Relationship Specialty Start Date End Date Viral Lewis MD [address] [place] [address] PCP - General Family Medicine 10/15/23 Goals [...] BE BASED ON THE PRIMARY CLINICAL RECORDS. [employer] provides no warranty or guarantee of the accuracy or completeness of information in this document.
== END 2023-11-05 12:59 | disposition home or self-care (01) ==
LOC: VC 12:58
PROVIDERS: PCP Family Medicine; Visit Provider Radiology Diagnostic Radiology
DX: R60.0 Localized edema (principal)
CPT/HCPCS: 93970; G0463

== ENCOUNTER 2023-12-10 16:42 | Outpatient (OUT) | payer BC, SELFPAY ==
[2023-12-10 17:26] LABS: Basophils Absolute Auto 0.1 10^3/uL (0.0-0.1); Basophils Percent Auto 0.5 % (0.2-2.0); Eosinophils Absolute Auto 0.3 10^3/uL (0.0-0.7); Eosinophils Percent Auto 2.8 % (0.9-7.0); Hematocrit 41.2 % (36.0-48.0); Hemoglobin 13.8 g/dL (12.0-16.0); Immature Granulocytes Abs Auto 0.03 10^3/uL (0.00-0.03); Immature Granulocytes Pct Auto 0.3 % (0.0-0.5); Lymphocytes Absolute Auto 2.6 10^3/uL (1.2-3.8); Lymphocytes Percent Auto 26.8 % (20.5-60.0); Mean Corpuscular HGB Conc 33.5 g/dL (29.9-35.2); Mean Corpuscular Hemoglobin 30.7 pg (26.7-34.0); Mean Corpuscular Volume 91.6 fL (81.0-99.0); Mean Platelet Volume 10.3 fL (9.5-13.5); Monocytes Absolute Auto 0.6 10^3/uL (0.3-0.8); Monocytes Percent Auto 6.1 % (1.7-12.0); Neutrophils Absolute Auto 6.1 10^3/uL (1.4-6.5); Neutrophils Percent Auto 63.5 % (43.0-75.0); Platelet Count 322 10^3/uL (150-450); Red Cell Distribution Width 12.7 % (11.0-15.0); White Blood Count 9.6 10^3/uL (4.0-11.0)
[2023-12-10 17:41] LABS: Estimated Average Glucose 94 mg/dL; Glycohemoglobin A1C 4.9 % (4.5-6.2)
[2023-12-10 17:50] LABS: Alanine Aminotransferase 19 U/L (14-59); Albumin Level 3.4 g/dL (3.4-5.0); Alkaline Phosphatase 102 U/L (46-116); Anion Gap 14.2; Aspartate Amino Transferase 11 U/L (15-37); BUN Creatinine Ratio 18.4; Bilirubin Direct 0.1 mg/dL (0.0-0.2); Bilirubin Total 0.3 mg/dL (0.2-1.0); Calcium 8.8 mg/dL (8.5-10.1); Carbon Dioxide 25.5 mmol/L (21.0-32.0); Chloride 103 mmol/L (98-107); Estimated GFR (African America >60 (>=60); Estimated GFR (Non-African Ame >60 (>=60); Globulin 3.5 g/dL; Glucose 81 mg/dL (74-106); Potassium 3.7 mmol/L (3.5-5.1); Sodium 139 mmol/L (136-145); Total Protein 6.9 g/dL (6.4-8.2)
[2023-12-12 04:07] LABS: DHEA-Sulfate 59.4 ug/dL (41.2-243.7); Estradiol 70.3 pg/mL (.); FSH 9.1 mIU/mL (.); Luteinizing Hormone(LH) 3.1 mIU/mL (.); Progesterone <0.1 ng/mL (.)
== END 2023-12-10 16:43 | disposition home or self-care (01) ==
LOC: LAB 16:42
PROVIDERS: PCP Family Medicine; Visit Provider Family Medicine
DX: Z00.00 Encounter for general adult medical examination without abnormal findings (principal); N95.1 Menopausal and female climacteric states
CPT/HCPCS: 36415; 80048; 80076; 82627; 82670; 83001; 83002; 83036; 84144; 84443; 85025

== ENCOUNTER 2024-07-28 20:55 | Emergency (ER) | payer BC, SELFPAY ==
--- OUTSIDE RECORDS SUMMARY | 2024-07-28 21:00 | XMS_ITS | CCD ---
Author Organization [facility] Inform ion [facility] Care Team Providers Care Dish Up Person Name Role Phone Elian Doherty Unavailable Unavailable Didier Beltrán Unavailable Unavailable Viral Lewis Unavailable Unavailable Nir Zamarripa Unavailable Ellie Kemp Unavailable MD Viral Lewis Primary Care Provider MD Nir Zamarripa Attending Provider JOSE, BOWERS H Admitting Unavailable OJSE, BOWERS H Consulting Unavailable JOSE, BOWERS H Attending Unavailable JOSHUA, DR VIRAL Cervantes Primary Care Unavailable JOSHUA, DR VIRAL Cervantes Consulting Unavailable JOSHUA, DR VIRAL Cervantes Attending Unavailable JOSHUA, DR VIRAL Cervantes Admitting Unavailable JOSHUA, DR VIRAL Cervantes Primary Care Unavailable JOSE, BOWERS H Attending Unavailable JOSE, BOWERS H Admitting Unavailable JOSE, BOWERS H Consulting Unavailable JOSHUA, DR VIRAL Cervantes Primary Care Unavailable SALOMÓN CERVANTES Consulting Unavailable Faina Miller Unavailable CRISSY Miller Attending Provider [phone] Viral Lewis Primary Care Unavailable Nir Zamarripa Admitting UnavailNir Coronado Attending UnavailFaina Walton Admitting Unavailable Faina Miller Attending Unavailable NO FAMILY, PHYSICIAN Primary Care Unavailable Viral Lewis MD Primary Care Provider BREE BENITEZ Attending Unavailable JOSE, Attending Unavailable MARY OLGUIN Attending Unavailable ALBERTINA VAZQUEZ Attending Unavailable MARY OLGUIN Attending Unavailable LINWOOD MENA Attending Unavailable MARY OLGUIN Referring Unavailable YARELIS MALIK Attending Unavailable ANTHONY RIDDLE Attending Unavailable MARY OLGUIN Referring Unavailable ANTHONY RIDDLE Attending Unavailable MARY OLGUIN Referring Unavailable SHAIKH GARCIA Attending Unavailable VIRAL LEWIS Attending Unavailable MICHELLE, DALLIN Ponce Attending Unavailable Jose ADAM, Unavailable Joshua ADAM, Viral Watson Primary Care Unavail able Cris LYONC, Sendy Quigley Attending Love Lewis MD, [facility] Primary Care Unavail able Cris LYONC, Sendy Quigley Attending Unavai mark LYONC, Mavis Easley Attending Marry farrah Lewis MD, [facility] Primary Care Unavail able Joshua ADAM, [facility] Primary [facility] Unavail able Kodak LYONC, Mavis Easley Attending Marry vailable Cris LYONC, Sendy Quigley Attending Love Lewis MD, [facility] Unavail able Cris LYONC, Sendy Quigley Attending Love Lewis MD, [facility] Unavail able Cris GREER, Sendy Quigley Attending Love Lewis MD, [facility] Primary Care Unavail able Joshua ADAM, [facility] Primary [facility] Unavail able Kodak LYONC, Mavis Easley Attending Marry vailable [employer]ak LYONC, Mavis Easley Attending Marry farrah Lewis MD, [facility] Primary [facility] Unavail able Allergies Allergy Classification Reported Allergen(s) Allergy Type Date of Onset Reaction(s) Facility (20 sources) Doxycycline; Translations: [doxycycline] Drug Allergy 06-21-20 13 GI intolerance [facility] (4 sources) Promethazine; Translations: [Phenergan] Drug Allergy 06-21-20 13 [facility] (2 sources) Sulfonamides (Antibiotic) Allergy to drug (finding) JV-Guijyeuhj-Re [facility] [address] [employer] Work Phone: (9 sources) Clarithromycin Drug Allergy Unknown [employer] Other (20 sources) Promethazine Drug Allergy 06-14-20 19 Seizures [facility] (9 sources) Sulfacetamide Drug Allergy Unknown [employer] Other (9 sources) cat scan contrast Propensity to adverse reactions Unknown [employer] Other (3 sources) Sulfonamides (Antibiotic); Translations: [Sulfa (Sulfonamide Antibiotics)] Allergy to substance 06-14-20 19 Rash [facility] (4 sources) Iodinated Contrast Media; Translations: [Iodinated Contrast Media] Allergy to substance 06-14-20 19 Difficulty Breathing [facility] (1 source) Sulfonamides (Antibiotic) Drug allergy (disorder) 06-21-20 13 [facility] (1 source) topiramate Drug Allergy 06-21-20 13 [facility] (1 source) Promethazine Drug Allergy 06-14-20 19 [facility] (5 sources) Sulfonamides (Antibiotic) Drug Allergy 06-14-20 19 Hives, [facility] (1 source) Contrast media; Translations: [contrast media (iodine-based)] Propensity to adverse reactions to drug (disorder) [facility] Repository Medications Current Medications Medication Drug Class(es) Dates Sig (Normalized) Sig (Original) azithromycin 500 mg oral tablet (2 sources) [...] morning. 30 tablet 0 10/22/2023 11/21/2023 Active pantoprazole 40 mg delayed release oral tablet (2 sources) Proton Pump Inhibitor Start: 01-29-2023 take 1 tablet by mouth every twenty-four hours Pantoprazole Sodium 40 MG 1 tablet Orally Once a day for 30 days January, Active predniSONE 10 mg oral tablet (1 source) Start: 01-12-2024 Prednisone Active 10 MG PO January 12, 2024 12:00am Toradol 30 mg/ml (5 sources) Start: 03-26-2021 Toradol 30 mg/ml Mar, 60 mg valACYclovir 500 mg oral tablet (1 source) Herpesvirus Nucleoside Analog DNA Polymerase Inhibitor, Herpes Simplex Virus Nucleoside Analog DNA Polymerase Inhibitor, Herpes Zoster Virus Nucleoside Analog DNA Polymerase Inhibitor Start: 01-12-2024 Valacyclovir Active 500 MG PO January 12, 2024 12:00am Completed/Discontinued Medications Medication Drug Class(es) Dates Sig (Normalized) Sig (Original) amitriptyline hydrochloride 10 mg oral tablet (5 sources) Tricyclic Antidepressant Start: 02-02-2018 End: 01-12-2024 take 10 mg by mouth once daily Amitriptyline Discontinued 10 MG PO Daily April 23, 2018 12:00am January 12, 2024 2:34pm cefTRIAXone (5 sources) Cephalosporin Antibacterial Start: 10-23-2021 Ceftriaxone 500mg Oct, 500 mg fluconazole 150 mg oral tablet (11 sources) Azole Antifungal Start: 06-29-2024 End: 07-04-2024 take 1 tablet by mouth once fluconazole (Diflucan) 150 MG tablet Indications: Acute vaginitis Take 1 tablet (150 mg) by mouth 1 (one) time for 1 dose 1 tablet 07/04/2024 07/04/2024 Start: 09-25-2023 End: 10-15-2023 fluconazole (Diflucan) 150 M G tablet Indications: Dysuria , Vaginal discharge Take [...] Didier Beltrán MD Start : 14-Feb-2020 Active meclizine hydrochloride 25 mg oral tablet (3 sources) Antiemetic Start: 06-15-2019 End: 01-12-2024 take 25 mg by mouth three to four times daily Meclizine Discontinued 25 MG PO 3 to 4 times per day 120 June 15, 2019 12:00am January 12, 2024 2:34pm metroNIDAZOLE 500 mg oral tablet (16 sources) Nitroimidazole Antimicrobial Start: 07-04-2024 End: 07-11-2024 take 1 tablet by mouth once metroNIDAZOLE (Flagyl) 500 MG tablet Indications: Acute vaginitis Take 1 tablet (500 mg) by mouth every 12 (twelve) hours for 7 days 14 tablet 07/04/2024 07/11/2024 Start: 10-07-2023 End: 10-15-2023 take 1 tablet [...] Start: 10-23-2021 take 4 tablets by mo [facility] once at mealtime metroNIDAZOLE 500 MG 4 tabs Orally once for 1 day Take 4 tablets by mouth all at once with food today Oct, Active Start: 10-23-2021 Metrogel 1 % 1 application intravaginally Once a day for 5 day(s) Oct, Active Start: 06-15-2019 End: 01-12-2024 take 1 tablet by mouth every twelve hours Metronidazole (Flagyl) 500 mg tablet Discontinued 500 MG PO Q12H 03 07June 15, 2019 12:00am January 12, 2024 2:34pm montelukast 10 mg oral tablet (12 sources) Leukotriene Receptor Antagonist Start: 11-15-2018 End: 01-12-2024 take 2 tablets by mouth once daily in the evening Montelukast (Singulair) 10 mg Tablet Discontinued 20 MG PO Every evening November 15, 2018 1:00am January 12, 2024 2:34pm take 1 tablet by lulu th every twenty-four hours Singulair 5 MG 1 tablet Orally Once a day for 30 days Active omeprazole 40 mg delayed release oral capsule (3 sources) Proton Pump Inhibitor Start: 04-23-2018 End: 12-07-2018 take 40 mg by mouth twice daily Omeprazole Discontinued 40 MG PO Twice daily April 23, 2018 12:00am December 07, 2018 1:23pm ondansetron 4 mg disintegrating oral tablet (3 sources) Serotonin-3 Receptor Antagonist Start: 06-15-2019 End: 01-12-2024 Ondansetron Discontinued 4 MG PO every 6 to 8 hours June 15, 2019 12:00am January 12, 2024 2:34pm oseltamivir 75 mg oral capsule (3 sources) Neuraminidase Inhibitor Start: 11-15-2018 End: 11-20-2018 [...] abdominal pain] Onset: 09-24-2021 Resolved: 12-16-2021 Episodic Administrative/social admission (2 sources) Dietary counseling and surveillance; Translations: [Dietary surveillance and counseling] 01-12-2024 Episodic Cardiac dysrhythmias (3 sources) Palpitations; Translations: [Palpitations] 02-01-2019 Episodic Complications of surgical procedures or medical care (3 sources) Drug therapy finding; Translations: [Unspecified adverse effect of drug or medicament, initial encounter] 06-12-2019 Episodic Esophageal disorders (20 sources) Lower esophageal ring; Translations: [Esophageal obstruction] Onset: 09-24-2021 Resolved: 12-16-2021 Chronic Fluid and electrolyte disorders (3 sources) Dehydration; Translations: [Dehydration] 06-15-2019 Episodic Genitourinary symptoms and ill-defined conditions (2 sources) Dysuria; Translations: [Dysuria] 07-04-2024 Episodic Headache; including migraine (20 sources) Migraine with aura; Translations: [Migraine without aura] Onset: 03-01-2024 Resolved: 03-22-2024 03-01-2024 Chronic Headache; including migraine (2 sources) Chronic headache disorder; Translations: [Chronic headaches] Episodic Hepatitis (20 sources) Autoimmune hepatitis; Translations: [Autoimmune hepatitis] Onset: 09-24-2021 Resolved: 10-11-2021 Chronic Inflammatory diseases of female pelvic organs (2 sources) Acute vaginitis; Translations: [Acute vaginitis] 07-04-2024 Episodic Intestinal infection (12 sources) Helicobacter-associat ed disease; Translations: [Other specified bacterial intestinal infections] 06-15-2019 Episodic Malaise and fatigue (19 sources) Asthenia; Translations: [Weakness] Onset: 10-11-2021 Resolved: 10-11-2021 Episodic Nausea and vomiting (20 sources) Nausea; Translations: [Nausea] Onset: 10-11-2021 Resolved: 10-11-2021 Episodic Nonspecific chest pain (9 sources) Chest pain; Translations: [Other chest pain] Episodic Other female genital disorders (3 sources) Other [...] nutritional; endocrine; and metabolic disorders (9 sources) Obesity caused by energy imbalance; Translations: [Other obesity due to excess calories] Onset: 08-31-2023 08-31-2023 Chronic Other nutritional; endocrine; and metabolic disorders (1 source) Obese class II; Translations: [Obesity, unspecified] 01-12-2024 Chronic Other nutritional; endocrine; and metabolic disorders (1 source) Obesity, unspecified; Translations: [Obesity, unspecified] 01-12-2024 Chronic Other nutritional; endocrine; and metabolic disorders (9 sources) Loss of appetite; Translations: [Anorexia] Episodic Other skin disorders (2 sources) H/O: skin disorder; Translations: [History of sebaceous cyst] Episodic Other upper respiratory disease (9 sources) Allergic rhinitis caused by mold; Translations: [Other allergic rhinitis] Onset: 04-07-2023 04-07-2023 Chronic Residual codes; unclassified (2 sources) Sensory symptoms; Translations: [Hemisensory deficit] Episodic Past or Other Problems Problem Classification Problem Date Documented Da te Episodic/Chronic Blindness and vision defects (9 sources) Visual disturbance; Translations: [Unspecified visual disturbance] Onset: 04-07-2023 04-07-2023 Episodic Conditions associated with dizziness or vertigo (16 sources) Dizziness; Translations: [Dizziness and giddiness] Onset: 04-07-2023 07-19-2019 Episodic Osteoarthritis (9 sources) Osteoarthritis of right knee joint; Translations: [Unilateral primary osteoarthritis, right knee] Onset: 04-07-2023 Resolved: 03-02-2024 04-07-2023 Chronic Other connective tissue disease (3 sources) Plantar fasciitis; Translations: [Plantar fascial fibromatosis] Onset: 02-23-2024 02-23-2024 Episodic Other connective tissue disease (3 sources) Deformity of lower limb; Translations: [Contracture of muscle, right lower leg] Onset: 02-23-2024 02-23-2024 Episodic Other female genital disorders (9 sources) Burning sensation of vagina; Translations: [Unspecified condition associated with female genital organs and menstrual cycle] Onset: 04-07-2023 Resolved: 03-02-2024 04-07-2023 Episodic Other gastrointestinal disorders (1 source) Heartburn Onset: 09-24-2021 Resolved: 09-24-2021 Episodic Other gastrointestinal disorders (3 sources) Dysphagia, unspecified Onset: 09-24-2021 Resolved: 12-16-2021 Episodic Other lower respiratory disease (4 sources) Respiratory disorder, unspecified; Translations: [RESPIRATORY DISORDER UNSPECIFIED] Onset: 01-20-2022 Episodic Other nervous system disorders (2 sources) Nonspecific paroxysmal spell; Translations: [Nonspecific paroxysmal spell] Other screening for suspected conditions (not mental disorders or infectious disease) (20 sources) Patient encounter status; Translations: [Encounter for screening for lipoid disorders] Onset: 10-15-2023 10-15-2023 Episodic Other upper respiratory infections (9 sources) Pharyngitis; Translations: [Acute pharyngitis, unspecified] Onset: 08-31-2023 08-31-2023 Episodic Residual codes; unclassified (1 source) High risk heterosexual behavior Onset: 10-23-2021 Resolved: 10-23-2021 Episodic Residual codes; unclassified (9 sources) Disorder of head; Translations: [Other general symptoms and signs] Onset: 04-07-2023 Resolved: 03-02-2024 04-07-2023 Episodic Residual codes; unclassified (11 sources) Bilateral lower limb edema; Translations: [Localized edema] Onset: 10-15-2023 10-15-2023 Episodic NEGATED: Highlighted row has not occurred!Residual codes; unclassified (8 sources) Disease Episodic Results Test Name Value Interpretation Reference Range Facility Chlam & GC DNAon 07-25-2024 Chlamydia, DNA Negative Normal Negative [facility] Comment on above: Result Comment: The APTIMA Combo 2 Assay is a target amplification nucleic acid probe test that utilizes target capture for the in-vitro qualitative detection of ribosomal RNA (rRNA) form Chlamydia trachomatis/CT and /or Neisseria gonorrhoeae/GC. A negative result does not preclude the presence of a CT or GC infection because results are dependent of adequate specimen collection, absence of inhibitors and sufficient rRNA to be detected. Results from the APTIMA Combo 2 Assay should be interpreted in conjunction with other laboratory and clinical data available to the clinician. Performed By: #### C [id number] #### [address] [address] Gonorrhea, DNA Negative Normal Negative [facility] Comment on above: Result Comment: The APTIMA Combo 2 Assay is a target amplification nucleic acid probe test that utilizes target capture for the in-vitro qualitative detection of ribosomal RNA (rRNA) form Chlamydia trachomatis/CT and /or Neisseria gonorrhoeae/GC A negative result does not preclude the presence of a CT or GC infection because results are dependent of adequate specimen collection, absence of inhibitors and sufficient rRNA to be detected. Results from the APTIMA Combo 2 Assay should be interpreted in conjunction with other laboratory and clinical data available to the clinician. Performed By: #### C [id number] #### [address] [address] Ureaplasma species, PCR-Staley on 07-25-2024 Specimen Source (URRP)-[facility] Vaginal Normal [facility] Comment on above: Performed By: #### C [id number] #### [facility] [address] [place] [id number] Ureaplasma parvum PCR-[facility]aley Positive Abnormal Not Applicable [facility] Comment on above: Result Comment: ADDITIONAL INFORMATION This test was developed and its performance characteristics determined by [facility] in a manner consistent with CLIA requirements. This test has not been cleared or approved by the U.S. Food and Drug Administration. Test Performed by: [facility] [place] [address] [employer] Laborer: Rudolph Garcia Ph.D.; CLIA# [id number] Performed By: #### Lulu [id number] #### [address] [address] Ureaplasma urealyticum PCR-[facility] Negative Normal Not Applicable [facility] Comment on above: Performed By: #### Lulu [id number] #### [address] [address] Mycoplasma hominis, PCR-[facility]aley on 07-23-2024 Mycoplasma hominis PCR-[facility] Negative Normal Not Applicable [facility] Comment on above: Result Comment: ADDITIONAL INFORMATION This test was developed and its performance characteristics determined by [facility] in a manner consistent with CLIA requirements. This test has not been cleared or approved by the U.S. Food and Drug Administration. 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 Lungs: Clear to auscultation and percussion, non-labored respiration. Heart: Normal rate, regular rhythm, no murmur, gallop or edema. Abdomen: Soft, non-tender, non-distended, normal bowel sounds, no masses. Neurologic: Awake, alert, and oriented X3, CN II-XII intact. Psychiatric: Cooperative, appropriate mood and affect. External Genitalia: Normal urethral meatus, no lesions, vulvar skin intact. Genitourinary: Normal vaginal mucosa, no lesions or abnormal discharge. Assessment/Plan 1. Vaginal irritation Culture pending-no charge. She will be notified of results. Orders: GC/Chlamydia DNA Medical Decision Making Chronic conditions NOT treated [...] include time spent on separately billable services. OB History History (1,0,0,1) # 1 Baby 1 Outcome Date: 04/29/1997 Outcome or Result: Vaginal Gest Age: 40 weeks Outcome: Live Sex: Female # 2 Baby 1 Outcome Date: 04/29/1999 Outcome or Result: Vaginal, Vacuum Assist Gest Age: 4 weeks Outcome: Sex: -- Women's Health Screening Last Pap Smear No qualifying data available. Last HPV No qualifying data available. Bone Density No qualifying data available. Mammograms MG Mammogram Digital Screen Bilat +Ravinder 02/11/24 16:01:00 #[id number] - MG MAMMOGRAM DIGITAL SCREEN BILAT + RAVINDER BILATERAL DIGITAL SCREENING MAMMOGRAM 3D/2D WITH CAD: 02/11/2024 CLINICAL: Screening. Comparison is made to exams dated: 12/27/2021 mammogram, 01/13/2023 mammogram, and 12/25/2020 mammogram - [facility]. The breasts are heterogeneously dense, which may obscure small masses. Current study was also evaluated with a Computer Aided Detection (CAD) system. There are benign nodules in the right breast. There also are benign scattered calcifications in the right breast. No significant masses, calcifications, or other findings are seen in either breast. There has been no significant interval change. IMPRESSION: BENIGN There is no mammographic evidence of malignancy. A 1 year screening mammogram is recommended. (02/11/2025) The patient was notified of the results. Your patient?s mammogram demonstrates that she has dense breast [...] may not be detected on mammograms. The [employer] supports annual screening mammography starting at age 40. Mandy Daly MD [facility]/joshua:02/15/2024 14:48:25 Insurance Office Manager(s): RT Dre(R)(M)(CT), [facility] letter sent: New Mammo Normal B1/2 Mammogram BI-RADS: 2 Benign Outside Results No qualifying data available. Problem List/Past Medical History Ongoing Encounter for gynecological examination (general) (routine) without abnormal findings Skin tag Vaginal burning Historical Autoimmune hepatitis Esophagitis Procedure/Surgical History T&A (1984) HydroAblation (2009) Left Knee Meniscus Repair (2013) Roe. TLH/BS on 02/04/16, Left Oophorectomy (02/04/2016) Medications Drysol 20% topical solution, 1 marlon, Topical, HS (at bedtime), PRN, 1 refills fluticasone 50 mcg/inh nasal spray, 16 g, SPRAY 2 SPRAYS INTO EACH NOSTRIL EVERY DAY oxyCODONE-acetaminoph en 5 mg-325 mg oral tablet valACYclovir 500 mg oral tablet, 500 mg= 1 tabs, Oral, Daily, 3 refills Xerac AC 6.25% solution, See Instructions, 6 refills, apply underarms qd as directed. Allergies Phenergan (Convulsions) contrast media (iodine-based) (Heart racing) doxycycline (Vomiting) Social History Alcohol Never Nutrition/Health (more content not included)... Normal [facility] OR Trackon 07-22-2024 Specimens Received From [facility] Normal [facility] Comment on above: Performed By: #### C [id number] #### [facility] [employer] [address] [place], [place] [address] HSV1,2 Ql PCR,Swab-[facility] Herpes Source-[facility]aley Not Reported [facility] Comment on above: Performed By: #### C D:[id number] #### [place] [id number] HSV 1 PCR-Staley SEE BELOW [facility] Comment on above: Result Comment: RESU LT: Test Not Performed Herpes Simplex Virus, PCR, Varies was cancelled on 07/21/2024 at 07:20; Per provider's request. Test Performed by: [facility] [place] [address] [employer] Laborer: Rudolph Garcia Ph.D.; CLIA# [id number] Performed By: #### C [id number] #### [address] [address] HSV 2 PCR-[facility]aley Not Reported [facility] Comment on above: Performed By: #### C [id number] #### [place] [id number] Gynecology Office/Clinic Not ramila 07-19-2024 Gynecology Office/Clinic Note Chief Complaint Possible vaginal infection. History of Present Illness Pelvic Pain: No Painful Sex: No Abnormal Vaginal Discharge: No Abnormal Vaginal Bleeding: No Vaginal Dryness: No Vaginal Itch: No Vaginal Burning: Yes Vaginal Odor: No Sexually Active: Yes Comments 07/19/24 14:08:00 48 y/o . Possible vaginal infection. Sendy Pt C/o constant vaginal burning. Last appt Health Tracks culture no microbes. She was to use Metrogel following intercourse for hx BV-has been but has a new partner. Wants GC/CHL testing and BV. She had testing in [place] and +Ureaplasma/mycoplasm a treated with Azithromycin approx 1 week ago. No bowel/bladder complaints. 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 Lungs: Clear to auscultation and percussion, non-labored respiration. Heart: Normal rate, regular rhythm, no murmur, gallop or edema. Abdomen: Soft, non-tender, non-distended, normal bowel sounds, no masses. Neurologic: Awake, alert, and oriented X3, CN II-XII intact. Psychiatric: Cooperative, appropriate mood and affect. External Genitalia: Normal urethral meatus, no lesions, vulvar skin intact. Genitourinary: Normal vaginal mucosa, no lesions +abnormal discharge, cervix surgically absent, no bleeding. No cystocele or rectocele. Bimanual exam: Absent uterus-s/p TLH. No adnexal tenderness or masses. Assessment/Plan 1. Vaginal burning Vaginal culture and GC/CHL pending-she will be notified of results. She will consider starting Probiotic. Discussed vaginal changes caused by estrogen loss known as Genitourinary Syndrome of Menopause. This can cause vaginal symptoms such as dryness, burning, and pain with intercourse. Urinary changes can also occur such as urinary frequency, urgency and bladder infections. The primary indication for treatment of vaginal atrophy is the relief of bothersome symptoms. The first line therapy for symptoms of vaginal atrophy are the regular use of vaginal lubricants or moisturizing agents such as KY, astroglide, olive oil, coconut oil or other over the counter agents. If symptoms do not improve with vaginal lubricants then low dose vaginal estrogen is an option for those women who are candidates. Info sheet given. Clothing and laundry - Wear white cotton underwear - Do not wear pantyhose (wear thigh-high or knee-high hose instead) - Wear loose-fitting pants or skirts - Remove wet bathing suits and exercise clothing promptly - Use dermatologically approved detergent - Do not use fabric softener on undergarments Hygiene - Use soft, white, unscented toilet paper - Use lukewarm or cool sitz baths to relieve burning and irritation - Avoid getting shampoo on the vulvar area - Do not use bubble bath, feminine hygiene products, or any perfumed creams or soaps - Wash the vulva with cool to lukewarm water only - Rinse the vulva with water after urination - Urinate before the bladder is full - Prevent constipation by adding fiber to your diet (if necessary, use a psyllium product) and drinking at least eight glasses of water daily - Use 100% cotton menstrual pads and tampons F/u as scheduled for her annual with Sendy and call with any questions/problems prior to next appt. Medical Decision Making Chronic conditions NOT treated during this visit that affected my overall medical decision making: obesity Treatment plans discussed but not opted for at this time: no Prescribed medication that requires intensive monitoring for toxicity: no I have reviewed the patient?s medication list for medication interactions/contrain dications and/or for upcoming procedures: no Time Spent with the Patient I have personally spent 20 minutes on this date, directly related to today's patient visit, including pre and post visit work, for this date of service. Time listed does not include time spent on separately billable services. OB History History (1,0,0,1) # 1 Baby 1 Outcome Date: 04/29/1997 Outcome or Result: Vaginal Gest Age: 40 weeks Outcome: Live Sex: Female # 2 Baby 1 Outcome Date: 04/29/1999 Outcome or Result: Vaginal, Vacuum Assist Gest Age: 4 weeks Outcome: Sex: -- Women's Health Screening Last Pap Smear No qualifying data available. Last HPV No qualifying data available. Bone Density No qu (more content not included)... [facility] OR [facility] 07-19-2024 Specimens Received From BV OB [facility] Comment on above: Performed By: #### O utrea Tracking Order #### [facility] [address] [place] [address] Vaginal Panel DNAon 07-19-20 Bacterial Vaginosis Negative Normal Negative [facility] Comment on above: Performed By: #### C [id number] #### [facility] [address] [place] [address] Esthela glabrata/krusei Not detected Normal Not Detected [facility] Comment on above: Performed By: #### C D:[id number] #### [address] [place] [address] Esthela group Not detected Normal Not Detected [facility] Comment on above: Performed By: #### C D:[id number] #### [address] [place] [address] Trichomonas vaginalis Not detected Normal Not Detected [facility] Comment on above: Performed By: #### C D:[id number] #### [address] [address] GENITOURINARY INFECTION (HTR X)on 07-06-2024 ACINETOBACTER BAUMANII 0 [facility] ACINETOBACTER BAUMANII Not detected [facility] ATOPOBIUM VAGINAE 0 [facility] ATOPOBIUM VAGINAE Not detected [facility] (BACTERIAL VAGINOSIS ASSOCIATED BACTERIA 2, 3); MOBILUNCUS SPP 0 [facility] BVAB 2,3 (BACTERIAL VAGINOSIS ASSOCIATED BACTERIA 2, 3); MOBILUNCUS SPP Not detected [facility] ESTHELA ALBICANS, PARAPSILOSIS, TROPICALIS 0 [facility] ESTHELA ALBICANS, PARAPSILOSIS, TROPICALIS Not detected [facility] ESTHELA GLABRATA 0 [facility] ESTHELA GLABRATA Not detected [facility] ESTHELA KRUSEI 0 [facility] ESTHELA KRUSEI Not detected [facility] CHLAMYDIA TRACHOMATIS 0 [facility] CHLAMYDIA TRACHOMATIS Not detected [facility] CITROBACTER FREUNDII 0 [facility] CITROBACTER FREUNDII Not detected [facility] ENTEROBACTER AEROGENES, CLOACAE 0 [facility] ENTEROBACTER AEROGENES, CLOACAE Not detected [facility] ENTEROCOCCUS FAECALIS, FAECIUM 0 [facility] ENTEROCOCCUS FAECALIS, FAECIUM Not detected [facility] ESCHERICHIA COLI 0 [facility] ESCHERICHIA COLI Not detected [facility] GARDNERELLA VAGINALIS 0 [facility] GARDNERELLA VAGINALIS Not detected [facility] Interpretation and review of laboratory results Abnormal [facility] KLEBSIELLA PNEUMONIAE, OXYTOCA 0 [facility] KLEBSIELLA PNEUMONIAE, OXYTOCA Not detected [facility] MEGASPHAERA (TYPES 1, 2) 0 [facility] MEGASPHAERA (TYPES 1, 2) Not detected [facility] MORGANELLA MORGANII 0 [facility] MORGANELLA MORGANII Not detected [facility] MYCOPLASMA GENITALIUM 0 [facility] MYCOPLASMA GENITALIUM Not detected [facility] MYCOPLASMA HOMINIS 0 [facility] MYCOPLASMA HOMINIS Not detected [facility] NEISSERIA GONORRHOEAE 0 [facility] NEISSERIA GONORRHOEAE Not detected [facility] PROTEUS MIRABILIS, VULGARIS 0 [facility] PROTEUS MIRABILIS, VULGARIS Not detected [facility] PSEUDOMONAS AERUGINOSA 0 [facility] PSEUDOMONAS AERUGINOSA Not detected [facility] SERRATIA MARCESCENS 0 [facility] SERRATIA MARCESCENS Not detected [facility] STAPHYLOCOCCUS AUREUS 0 [facility] STAPHYLOCOCCUS AUREUS Not detected [facility] STAPHYLOCOCCUS EPIDERMIDIS, HAEMOLYTICUS, LUGDUNENSIS 0 [facility] STAPHYLOCOCCUS EPIDERMIDIS, HAEMOLYTICUS, LUGDUNENSIS Not detected [facility] STAPHYLOCOCCUS SAPROPHYTICUS 0 [facility] STAPHYLOCOCCUS SAPROPHYTICUS Not detected [facility] STREPTOCOCCUS AGALACTIAE (GROUP B STREP) 0 [facility] STREPTOCOCCUS AGALACTIAE (GROUP B STREP) Not detected [facility] STREPTOCOCCUS PYOGENES (GROUP A STREP) 0 [facility] STREPTOCOCCUS PYOGENES (GROUP A STREP) Not detected [facility] TET B, TET M 27.52 Abnormal [facility] TET B, TET M Detected Abnormal [facility] TRICHOMONAS VAGINALIS 0 [facility] TRICHOMONAS VAGINALIS Not detected [facility] UREAPLASMA PARVUM 29.88 Abnormal [facility] UREAPLASMA PARVUM Detected Abnormal [facility] UREAPLASMA UREALYTICUM 0 [facility] UREAPLASMA UREALYTICUM Not detected [facility] Laboratory - Chemistry and C hemistry - challengeon 07-04-2024 Bilirubin Ql (U) Negative [facility] Glucose [Mass/Vol] Negative [facility] Ketones Ql (U) Negative [facility] pH (U) 6 [pH] [facility] Specific gravity (U) [Rel density] 1.005 [facility] Urobilinogen (U) [Mass/Vol] 0.910792 mg/dL [facility] Laboratory - Hematology and Cell countson 07-04-2024 Hemoglobin Ql (U) Trace [facility] Laboratory - Urinalysison Nitrite Ql (U) Negative [facility] Protein Ql (U) Negative [facility] No Panel Informationon 07-04 Interpretation and review of laboratory results Abnormal [facility] LEUKOCYTES Trace [facility] MG Mammogram Digital Screen Bilat + Tomoon 02-15-2024 MG Mammogram Digital Screen Bilat + Ravinder #[id number] - MG MAMMOGRAM DIGITAL SCREEN BILAT + RAVINDER BILATERAL DIGITAL SCREENING MAMMOGRAM 3D/2D WITH CAD: 02/11/2024 CLINICAL: Screening. Comparison is made to exams dated: 12/27/2021 mammogram, 01/13/2023 mammogram, and 12/25/2020 mammogram - [facility]. The breasts are heterogeneously dense, which may obscure small masses. Current study was also evaluated with a Computer Aided Detection (CAD) system. There are benign nodules in the right breast. There also are benign scattered calcifications in the right breast. No significant masses, calcifications, or other findings are seen in either breast. There has been no significant interval change. IMPRESSION: BENIGN There is no mammographic evidence of malignancy. A 1 year screening mammogram is recommended. (02/11/2025) The patient was notified of the results. [...] may not be detected on mammograms. The [employer] supports annual screening mammography starting at age 40. Mandy albert/joshua:02/15/2024 14:48:25 Insurance Office Manager(s): Mary Almanza, RT(R)(M)(CT), [facility] [place] letter sent: New Mammo Normal B1/2 Mammogram BI-RADS: 2 Benign Final Dictated by: Mandy Daly MD Signed by: Mandy Daly MD Signed (Electronic Signature): 02/15/2024 2:48 pm (If Report Is Signed, Electronically Signed in Other Vendor System) Normal [facility] Gynecology Office/Clinic Not ramila 02-11-2024 Gynecology Office/Clinic Note Chief Complaint Annual History of Present Illness Pelvic Pain: No Painful Sex: No Abnormal Vaginal Discharge: No Abnormal Vaginal Bleeding: No Vaginal Dryness: No Vaginal Itch: No Vaginal Burning: No Vaginal Odor: No Hot Flashes: Yes Night Sweats: Yes Breast Lump: No Breast Pain: No Contraception Type: None Menstrual Periods: No Reason for No Menstrual Periods: hyst Sexually Active: Yes 02/09/24 08:28:00 46 y/o, , , Annual Exam, Last pap: Roe. TLH/BS on 02/04/16, Left Oophorectomy Mammogram: 12/27/21, Benign with Dense Breast Tissue. Scheduled today. PCP: Dr. Lewis Sexual Hx: same partner x 7 years. Admits he is not always faithful. uses metrogel after SI due to recurrent BV. requests STI screen. Patient is doing well. Pt. going through perimenopause. Doing better currently, but had a few months of significant insomnia, night sweats, hot flashes, and mood changes. Menopausal supplement list and menopausal information she is given. Patient will attempt these [id number] options currently. We also discussed the use of hormone replacement therapy. Discussed menopause symptoms. Discussed options for treatment. Discussed alternatives to hormone therapy including acupuncture, exercise, yoga, SSRI, and avoiding triggers such as stress, alcohol, sugar, or coffee. Discussed menopausal hormone therapy. The goal of therapy is to relieve symptoms. Discussed side effects including breast tenderness, headaches, and fluid retention. 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 Review of Systems Head Headaches: Yes Migraines: Yes Eyes Blurred vision: None Corrective lenses: None ENT Congestion: No Nasal drainage: No Sore throat: No Vertigo: No Cardio Respiratory Heart Irregularity: No Peripheral edema: No Shortness of Breath: No Gastrointestinal Abdominal Pain: No Bloating: No Change in bowel habits: No Reflux/heartburn: No Urinary Nocturia: No Painful urination: No Urgency: No Urinary frequency: No Urinary Incontinence: No Musculoskeletal Backpain: No Joint pain: No Muscle aches: No Integumentary Acne: No Hair changes: No Lesions: No Moles: No PsychoSocial Anxiety: No Depression: No Homicidal Ideation: No Sleep Problems: No Suicidal Ideation: No Hematologic/Lymphatic Bleeding tendencies: No Bruising: No Endocrine Abnormal weight gain: No Abnormal weight loss: No Fatigue: No Pain Present Additional Details Physical Exam Vitals & Measurements BP: 122/70 HT: 162 cm WT: 92.7 kg WT: 92.7 kg (Dosing) BMI: 35.32 General: Alert and oriented x 3. Well [...] Bimanual exam: No adnexal tenderness or masses. No gaurding or prolapse. Additional Vitals BP Position/Location: Sitting, Left arm [...] Recommend exercise 30 min 5 days weekly. Pt can call back if decides to try estrogen patch. climara 0.05 weekly with 8 week f/u. Ordered: metroNIDAZOLE topical, 1 marlon, VAG, HS (at bedtime), X 5 days, # 70 g, 1 Refill(s), 02/21/24 16:08:00 EDT, Pharmacy: [facility]/pharmacy #[id number] AMB Preventative EST patient; 40-64 years Orders: valACYclovir, 1 tabs, Oral, Daily, # 90 tabs, 3 Refill(s), Pharmacy: [facility]/pharmacy #[id number] MG Mammogram Digital Screen Bilat +Ravinder Medical Decision Making Chronic conditions NOT treated during this visit that affected my overall (more content not included)... [facility] Provider Letteron 02-11-2024 Provider Letter [facility] OB & Physical Security Specialist - [facility] [address] [place], [address] Date: 02/11/2024 3:41pm To Whom It May Concern: This is to verify that Trudy Wilder was under our care on 02/11/2024 at 3:30pm for an office visit. Please contact the office with any questions or concerns. Thank you, Cris GREER, Sendy Quigley [facility] D-DIMERon 10-23-2023 D DIMER 0.48 [facility] Comment on above: Increases in D-Dimer concentration [...] or anticoagulant therapy, stress, and generalized hospitalization. [facility] WITH AUTO DIFFon BASOPHILS ABSOLUTE AUTO 0.1 [facility] Basophils/100 WBC (Bld) 0.7 % 0.2 - 2.0 % [facility] Eosinophils/100 WBC (Bld) 5.5 % 0.9 - 7.0 % [facility] Erythrocyte distribution width (RBC) [Ratio] 13.2 % 11.0 - 15.0 % [facility] Hematocrit (Bld) [Volume fraction] 40.8 % 36.0 - 48.0 % [facility] Hemoglobin (Bld) [Mass/Vol] 13.4 g/dL 12.0 - 16.0 g/dL [facility] IMMATURE GRANULOCYTES ABS AUTO 0.04 High [facility] Immature granulocytes/100 WBC (Bld) 0.4 % 0.0 - 0.5 % [facility] Interpretation and review of laboratory results Abnormal [facility] LYMPHOCYTES ABSOLUTE AUTO 2.7 [facility] Lymphocytes/100 WBC (Bld) 28.5 % 20.5 - 60.0 % [facility] MCH (RBC) [Entitic mass] 29.6 pg 26.7 - 34.0 pg [facility] MCHC (RBC) [Mass/Vol] 32.8 g/dL 29.9 - 35.2 g/dL [facility] MCV (RBC) [Entitic vol] 90.1 fL 81.0 - 99.0 fL [facility] MONOCYTES ABSOLUTE AUTO 0.6 [facility] Monocytes/100 WBC (Bld) 6.0 % 1.7 - 12.0 % [facility] NEUTROPHILS ABSOLUTE AUTO 5.6 [facility] Neutrophils/100 WBC (Bld) 58.9 % 43.0 - 75.0 % [facility] Platelet mean volume (Bld) [Entitic vol] 10.3 fL 9.5 - 13.5 fL [facility] TBH EO # 0.5 [facility] TB PLT 282 [facility] RBC 4.53 [facility] WBC 9.5 [facility] Vaginitis Plus (VG+)on 04-30 Atopobium Vaginae High - 2 Critically abnormal . [facility] Comment on above: Order Comment: SOURC E OF SPECIMEN: VAG Performed By: #### V AGINITIS+ #### [facility] , BVAB2 Low - 0 Normal . [facility] Comment on above: Order Comment: SOURC E OF SPECIMEN: VAG Performed By: #### V AGINITIS+ #### [facility] , Esthela Albicans, ABRAHAN Negative Normal Negative [facility] Comment on above: Order Comment: SOURC E OF SPECIMEN: VAG Result Comment: This test was developed and its performance characteristics determined by [facility]. It has not been cleared or approved by the Food and Drug Administration. Performed By: #### V AGINITIS+ #### [facility] , Esthela Glabrata, ABRAHAN Negative Normal Negative [facility] Comment on above: Order Comment: SOURC E OF SPECIMEN: VAG Result Comment: This test was developed and its performance characteristics determined by [facility]. It has not been cleared or approved by the Food and Drug Administration. PERFORMED BY: [facility] [address] [place] [address] PATHOLOGIST [employer] FORMER MACHINE MADELINE EDGAR M.D. Performed By: #### V AGINITIS+ #### [facility] , Chlamydia Trachomotis, ABRAHAN Negative Normal Negative [facility] Comment on above: Order Comment: SOURC E OF SPECIMEN: VAG Performed By: #### V AGINITIS+ #### [facility] , Megasphaera Low - 0 Normal . [facility] Comment on above: Order Comment: SOURC [...] , Neisseria Gonorrhoeae, ABRAHAN Negative Normal Negative [facility] Comment on above: Order Comment: SOURC E OF SPECIMEN: VAG Result Comment: Perf ormed at: =G - [facility] [address] [place] [id number] [employer] Laborer: Rosie Martinez MD, Phone: [phone] Performed By: #### V AGINITIS+ #### [facility] , Tric Vag ABRAHAN Negative Normal Negative [facility] Comment on above: Order Comment: SOURC E OF SPECIMEN: VAG Performed By: #### V AGINITIS+ #### [facility] , LIPASEon 11-05-2022 Lipase [Catalytic activity/Vol] 97.0 U/L Normal 73.0-393.0 [facility] Comment on above: Performed By: #### C MP, LIPA #### [facility] [address] [place] [address] Dr. Ann Watson PROF 14(COMP METB)on 023 Albumin [Mass/Vol] 3.7 g/dL Normal 3.4-5.0 [facility] Comment on above: Performed By: #### C MP, LIPA #### [facility] [address] [place] [address] Dr. Ann Watson Albumin/Globulin [Mass ratio] 1.2 {ratio} Normal [facility] Comment on above: Performed By: #### C MP, LIPA #### [facility] [address] [place] [address] Dr. Ann Watson ALP [Catalytic activity/Vol] 87 U/L Normal 46-116 [facility] Comment on above: Performed By: #### C MP, LIPA #### [facility] [address] [place] [address] Dr. Ann Watson ALT [Catalytic activity/Vol] 14 U/L Normal 14-59 [facility] Comment on above: Performed By: #### C MP, LIPA #### [facility] [address] [place] [address] Dr. Ann Watson Anion gap [Moles/Vol] 7.6 mmol/L Normal [facility] Comment on above: Performed By: #### C MP, LIPA #### [facility] [address] [address] [address] Ann Watson AST [Catalytic activity/Vol] 12 U/L Critically low 15-37 [facility] Comment on above: Performed By: #### C MP, LIPA #### [facility] [address] [place] [address] Dr. Ann Watson Bilirubin [Mass/Vol] 0.5 mg/dL Normal 0.2-1.0 [facility] Comment on above: Performed By: #### C MP, LIPA #### [facility] [address] [place] [address] Dr. Ann Watson Calcium [Mass/Vol] 9.0 mg/dL Normal 8.5-10.1 [facility] Comment on above: Performed By: #### C MP, LIPA #### [facility] [address] [place] [address] Dr. Ann Watson Chloride [Moles/Vol] 107 mmol/L Normal 98-107 [facility] Comment on above: Performed By: #### C MP, LIPA #### [facility] [address] [place] [address] Dr. Ann Watson CO2 [Moles/Vol] 27.6 mmol/L Normal 21.0-32.[address] [facility] Comment on above: Performed By: #### C MP, LIPA #### [facility] [address] [place] [address] Dr. Ann Watson Creatinine [Mass/Vol] 0.59 mg/dL Normal 0.55-1.02 [facility] Comment on above: Performed By: #### C MP, LIPA #### [facility] [address] [place] [address] Dr. Ann Watson EGFR-AF MALAWIAN >60 Normal >=60 [facility] Comment on above: Performed By: #### C MP, LIPA #### [facility] [address] [place] [address] Dr. Ann Watson EGFR-NON AF MALAWIAN >60 Normal >=60 [facility] Comment on above: Performed By: #### C MP, LIPA #### [facility] [address] [address] [address] Ann Watson Globulin (S) [Mass/Vol] 3.2 g/dL Normal [facility] Comment on above: Performed By: #### C MP, LIPA #### [facility] [address] [place] [address] Dr. Ann Watson Glucose [Mass/Vol] 89 mg/dL Normal 74-106 [facility] Comment on above: Performed By: #### C MP, LIPA #### [facility] [address] [place] [address] Dr. Ann Watson Potassium [Moles/Vol] 4.2 mmol/L Normal 3.5-5.1 [facility] Comment on above: Performed By: #### C MP, LIPA #### [facility] [address] [place] [address] Dr. Ann Watson Protein [Mass/Vol] 6.9 g/dL Normal 6.4-8.2 [facility] Comment on above: Performed By: #### C MP, LIPA #### [facility] [address] [place] [address] Dr. Ann Watson Sodium [Moles/Vol] 138 mmol/L Normal 136-145 [facility] Comment on above: Performed By: #### C MP, LIPA #### [facility] [address] [place] [address] Dr. Ann Watson Urea nitrogen [Mass/Vol] 14.0 mg/dL Normal 7.0-18.0 [facility] Comment on above: Performed By: #### C MP, LIPA #### [facility] [address] [place] [address] Dr. Ann Watson Urea nitrogen/Creatinine [Mass ratio] 23.7 mg/mg Normal [facility] Comment on above: Performed By: #### C MP, LIPA #### [facility] [address] [place] [address] Dr. Ann Watson CBC AUTO DIFFon 10-10-2022 BASO # 0.0 103/ul Normal 0.0-0.1 [facility] Comment on above: Performed By: #### C BC #### [facility] [address] [address] [address] Ann Watson Basophils/100 WBC (Bld) 0.5 % Normal 0.2-2.0 [facility] Comment on above: Performed By: #### C BC #### [facility] [address] [address] [address] Ann Watson EO # 0.4 103/ul Normal 0.0-0.7 [facility] Comment on above: Performed By: #### C BC #### [facility] [address] [place] [address] Dr. Ann Watson Eosinophils/100 WBC (Bld) 7.4 % Critically high 0.9-7.0 [facility] Comment on above: Performed By: #### C BC #### [facility] [address] [place] [address] Dr. Ann Watson Erythrocyte distribution width (RBC) [Ratio] 12.4 % Normal 11.0-15.0 [facility] Comment on above: Performed By: #### C BC #### [facility] [address] [place] [address] Dr. Ann Watson Hematocrit (Bld) [Volume fraction] 46.5 % Normal 36.0-48.0 [facility] Comment on above: Performed By: #### C BC #### [facility] [address] [place] [address] Dr. Ann Watson Hemoglobin (Bld) [Mass/Vol] 14.4 g/dL Normal 12.0-16.0 [facility] Comment on above: Performed By: #### C BC #### [facility] [address] [place] [address] Dr. Ann Watson IG # 0.02 10e3/ul Normal 0.00-0.03 [facility] Comment on above: Performed By: #### C BC #### [facility] [address] [place] [address] Dr. Ann Watson IG % 0.4 % Normal 0.0-0.5 [facility] Comment on above: Performed By: #### C BC #### [facility] [address] [place] [address] Dr. Ann Watson LYMPH # 2.3 103/ul Normal 1.2-3.8 [facility] Comment on above: Performed By: #### C BC #### [facility] [address] [place] [address] Dr. Ann Watson Lymphocytes/100 WBC (Bld) 42.0 % Normal 20.5-60.0 [facility] Comment on above: Performed By: #### C BC #### [facility] [address] [place] [address] Dr. Ann Watson MANUAL DIFF REQ NO Normal [facility] Comment on above: Performed By: #### C BC #### [facility] [address] [place] [address] Dr. Ann Watson MCH (RBC) [Entitic mass] 30.0 pg Normal 26.7-34.0 [facility] Comment on above: Performed By: #### C BC #### [facility] [address] [place] [address] Dr. Ann Watson MCHC (RBC) [Mass/Vol] 31.0 g/dL Normal 29.9-35.2 [facility] Comment on above: Performed By: #### C BC #### [facility] [address] [place] [address] Dr. Ann Watson MCV (RBC) [Entitic vol] 96.9 fL Normal 81.0-99.0 [facility] Comment on above: Performed By: #### C BC #### [facility] [address] [place] [address] Dr. Ann Watson MONO # 0.3 103/ul Normal 0.3-0.8 [facility] Comment on above: Performed By: #### C BC #### [facility] [address] [place] [address] Dr. Ann Watson Monocytes/100 WBC (Bld) 5.8 % Normal 1.7-12.0 [facility] Comment on above: Performed By: #### C BC #### [facility] [address] [place] [address] Dr. Ann Watson NEUT # 2.4 103/ul Normal 1.4-6.5 [facility] Comment on above: Performed By: #### C BC #### [facility] [address] [place] [address] Dr. Ann Watson Neutrophils/100 WBC (Bld) 43.9 % Normal 43.0-75.0 [facility] Comment on above: Performed By: #### C BC #### [facility] [address] [place] [address] Dr. Ann Watson Platelet mean volume (Bld) [Entitic vol] 10.9 fL Normal 9.5-13.5 [facility] Comment on above: Performed By: #### C BC #### [facility] [address] [place] [address] Dr. Ann Watson PLT 267 103/ul Normal 150-450 [facility] Comment on above: Performed By: #### C BC #### [facility] [address] [place] [address] Dr. Ann Watson RBC 4.80 106/ul Normal 4.20-5.40 [facility] Comment on above: Performed By: #### C BC #### [facility] [address] [place] [address] Dr. Ann Watson WBC 5.5 103/ul Normal 4.0-11.0 [facility] Comment on above: Performed By: #### C BC #### [facility] [address] [place] [address] Dr. Ann Watson FREE T3on 10-10-2022 FREE T3 2.38 pg/mlL Normal 2.18-3.98 [facility] Comment on above: Performed By: #### F T3, TSH, LIPID, BMP #### [facility] [address] [place] [address] Dr. Ann Watson FREE T4on 10-10-2022 Free T4 [Mass/Vol] 0.84 ng/dL Normal 0.76-1.46 [facility] Comment on above: Performed By: #### F T4 #### [facility] [address] [address] [address] Ann Watson GLYCOHEMOGLOBIN A1Con 2022 ADA RECOMMENDATION SEE BELOW Normal [facility] Comment on above: Result Comment: ADA RECOMMENDED LIMIT 4.0 - 6.0 ADA THERAPEUTIC TARGET < 7.0 ACTION SUGGESTED > 7.0 Performed By: #### A 1C #### [facility] [address] [address] [address] Ann Watson Glucose [Mass/Vol] 91 mg/dL Normal [facility] Comment on above: Performed By: #### A 1C #### [facility] [address] [place] [address] Dr. Ann Watson HbA1c (Bld) [Mass fraction] 4.8 % Normal 4.5-6.2 [facility] Comment on above: Performed By: #### A 1C #### [facility] [address] [place] [address] Dr. Ann Watson LIPID PROFILEon 10-10-2022 CHOL-HDL RATIO NORM SEE BELOW Normal [facility] Comment on above: Result Comment: 3.3 - 4.4 LOW RISK 4.4 - 7.1 AVERAGE RISK 7.1 - 11.0 MODERATE RISK >11.0 HIGH RISK Performed By: #### F T3, TSH, LIPID, BMP #### [facility] [address] [place] [address] Dr. Ann Watson Cholesterol [Mass/Vol] 169 mg/dL Normal <=200 [facility] Comment on above: Performed By: #### F T3, TSH, LIPID, BMP #### [facility] [address] [place] [address] Dr. Ann Watson Cholesterol in HDL [Mass/Vol] 52 mg/dL Normal 40-60 [facility] Comment on above: Performed By: #### F T3, TSH, LIPID, BMP #### [facility] [address] [address] [address] Ann Watson Cholesterol in LDL [Mass/Vol] 99.4 mg/dL Normal [facility] Comment on above: Performed By: #### F T3, TSH, LIPID, BMP #### [facility] [address] [address] [address] Ann Watson Cholesterol.total/Chol esterol in HDL [Mass ratio] 3.3 {ratio} Normal [facility] Comment on above: Performed By: #### F T3, TSH, LIPID, BMP #### [facility] [address] [address] [address] Ann Watson HDL NORMAL > or = 60 mg/dl - LO W CARDIOVASCULAR RISK <40 mg/dl - HIGH CARDIOVASCULAR RISK Normal [facility] Comment on above: Performed By: #### F T3, TSH, LIPID, BMP #### [facility] [address] [address] [address] Ann Watson LDL CALC NORMAL SEE BELOW Normal [facility] Comment on above: Result Comment: <100 mg/dl OPTIMAL 100 - 129 mg/dl NEAR OR ABOVE OPTIMAL 130 - 159 mg/dl BORDERLINE HIGH 160 - 189 mg/dl HIGH >190 mg/dl VERY HIGH Performed By: #### F T3, TSH, LIPID, BMP #### [facility] [address] [address] [address] Ann Watson Triglyceride [Mass/Vol] 88 mg/dL Normal <=150 [facility] Comment on above: Performed By: #### F T3, TSH, LIPID, BMP #### [facility] [address] [address] [address] Ann Watson VLDL CALC 17.6 mg/dL Normal [facility] Comment on above: Performed By: #### F T3, TSH, LIPID, BMP #### [facility] [address] [address] [address] Ann Watson PROF CHEM 8 (BAS METB)on Anion gap [Moles/Vol] 11.5 mmol/L Normal [facility] Comment on above: Performed By: #### F T3, TSH, LIPID, BMP #### [facility] [address] [address] [address] Ann Watson Calcium [Mass/Vol] 8.7 mg/dL Normal 8.5-10.1 [facility] Comment on above: Performed By: #### F T3, TSH, LIPID, BMP #### [facility] [address] [address] [address] Ann Watson Chloride [Moles/Vol] 106 mmol/L Normal 98-107 [facility] Comment on above: Performed By: #### F T3, TSH, LIPID, BMP #### [facility] [address] [address] [address] Ann Watson CO2 [Moles/Vol] 27.3 mmol/L Normal 21.0-32.[address] [facility] Comment on above: Performed By: #### F T3, TSH, LIPID, BMP #### [facility] [address] [address] [address] Ann Watson Creatinine [Mass/Vol] 0.57 mg/dL Normal 0.55-1.02 [facility] Comment on above: Performed By: #### F T3, TSH, LIPID, BMP #### [facility] [address] [address] [address] Ann Watson EGFR-AF MALAWIAN >60 Normal >=[address] [facility] Comment on above: Performed By: #### F T3, TSH, LIPID, BMP #### [facility] [address] [place] [address] Dr. Ann Watson EGFR-NON AF MALAWIAN >60 Normal >=60 [facility] Comment on above: Performed By: #### F T3, TSH, LIPID, BMP #### [facility] [address] [address] [address] Ann Watosn Glucose [Mass/Vol] 85 mg/dL Normal 74-106 [facility] Comment on above: Performed By: #### F T3, TSH, LIPID, BMP #### [facility] [address] [address] [address] Ann Watson Potassium [Moles/Vol] 3.8 mmol/L Normal 3.5-5.1 [facility] Comment on above: Performed By: #### F T3, TSH, LIPID, BMP #### [facility] [address] [address] [address] Ann Watson Sodium [Moles/Vol] 141 mmol/L Normal 136-145 [facility] Comment on above: Performed By: #### F T3, TSH, LIPID, BMP #### [facility] [address] [address] [address] Ann Watson Urea nitrogen [Mass/Vol] 12.0 mg/dL Normal 7.0-18.0 [facility] Comment on above: Performed By: #### F T3, TSH, LIPID, BMP #### [facility] [address] [address] [address] Ann Watson Urea nitrogen/Creatinine [Mass ratio] 21.1 mg/mg Normal [facility] Comment on above: Performed By: #### F T3, TSH, LIPID, BMP #### [facility] [address] [address] [address] Ann Watson TSHon 10-10-2022 TSH 3.064 uIU/mL Normal 0.358-3.740 [facility] Comment on above: Performed By: #### F T3, TSH, LIPID, BMP #### [facility] [address] [address] [address] Ann Watson JERRY Antinuclear Antibodieson 09-01-2022 Antinuclear Abs, IFA Positive Critically abnormal . [facility] Comment on above: Order Comment: Reaso n for Exam Hepatitis, autoimmune Result Comment: Nega tive <1:80 Borderline 1:80 Positive >1:80 Performed By: #### S MAB, JERRY #### [facility] , #### CMP, CBC #### [facility] [address] Note 1 Normal . [facility] Comment on above: Order Comment: Reaso [...] titers Nucleosomes, Histones Drug-induced SLE Speckled Sm, CRAB FISHERMAN, SCL-70, SLE,MCTD,PSS (diffuse form), SS-A/SS-B Sjogrens Nucleolar SCL-70, PM-1/SCL High titers Scleroderma, PM/DM Centromere Centromere PSS (limited form) w/Crest syndrome variable Nuclear Dot [id number] Primary Biliary Cirrhosis Nuclear GP210, Primary Biliary Cirrhosis Membrane cory A,B,C Performed at: [facility] [address] [id number] [employer] Laborer: Cyrus Abbott PhD, Phone: [phone] Performed By: #### S MAB, JERRY #### [facility] , #### CMP, CBC #### [facility] [address] [place] [address] Speckled Pattern 1:80 Normal . [facility] Comment on above: Order Comment: Reaso n for Exam Hepatitis, autoimmune Result Comment: ICAP nomenclature: [id number] Performed By: #### S MAB, JERRY #### [facility] , #### CMP, CBC #### [facility] [address] [place] [address] [place] Basophils Auto (Bld) [#/Vol] Ordered By: Nir Zamarripa on 09-01-2022 Basophils (Bld) [#/Vol] 0.1 10*3/uL 0.0-0.2 [facility] Basophils/100 WBC Auto (Bld) Ordered By: Nir Zamarripa on 09-01-2022 Basophils/100 WBC (Bld) 0.7 % . [facility] Body fluid albumin measureme nt (mass/volume)Ordered By: Nir Zamarripa on 09-01-2022 Albumin (Body fld) [Mass/Vol] 3.7 g/dL 3.2-5.5 [facility] Complete Blood Count Auto Di ffon 09-01-2022 Basophils (Bld) [#/Vol] 0.1 10*3/uL Normal 0.0-0.2 [facility] Comment on above: Order Comment: Reaso n for Exam Hepatitis, autoimmune Result Comment: PERF ORMED BY: [place] [address] PATHOLOGIST [employer] MADELINE EDGAR M.D. Performed By: #### S MAB, JERRY #### [facility] , #### CMP, CBC #### [address] Basophils/100 WBC (Bld) 0.7 % Normal . [facility] Comment on above: Order Comment: Reaso n for Exam Hepatitis, autoimmune Performed By: #### S MAB, JERRY #### [facility] , #### CMP, CBC #### [address] Eosinophils (Bld) [#/Vol] 0.5 10*3/uL High 0.0-0.45 [facility] Comment on above: Order Comment: Reaso n for Exam Hepatitis, autoimmune Performed By: #### S MAB, JERRY #### [facility] , #### CMP, CBC #### [address] Eosinophils/100 WBC (Bld) 7.2 % Normal . [facility] Comment on above: Order Comment: Reaso n for Exam Hepatitis, autoimmune Performed By: #### S MAB, JERRY #### [facility] , #### CMP, CBC #### [address] Erythrocyte distribution width (RBC) [Ratio] 13.7 % Normal 11.9-15.3 [facility] Comment on above: Order Comment: Reaso n for Exam Hepatitis, autoimmune Performed By: #### S MAB, JERRY #### [facility] , #### CMP, CBC #### [address] Hematocrit (Bld) [Volume fraction] 40.3 % Normal 34.0-46.4 [facility] Comment on above: Order Comment: Reaso n for Exam Hepatitis, autoimmune Performed By: #### S MAB, JERRY #### [facility] , #### CMP, CBC #### [address] Hemoglobin (Bld) [Mass/Vol] 13.5 g/dL Normal 11.8-15.4 [facility] Comment on above: Order Comment: Reaso n for Exam Hepatitis, autoimmune Performed By: #### S MAB, JERRY #### [facility] , #### CMP, CBC #### [address] Lymphocytes (Bld) [#/Vol] 2.4 10*3/uL Normal 1.00-4.8 [facility] Comment on above: Order Comment: Reaso n for Exam Hepatitis, autoimmune Performed By: #### S MAB, JERRY #### [facility] , #### CMP, CBC #### [address] Lymphocytes/100 WBC (Bld) 33.3 % Normal . [facility] Comment on above: Order Comment: Reaso n for Exam Hepatitis, autoimmune Performed By: #### S MAB, JERRY #### [facility] , #### CMP, CBC #### [address] MCH (RBC) [Entitic mass] 30.2 pg Normal 24.7-34.3 [facility] Comment on above: Order Comment: Reaso n for Exam Hepatitis, autoimmune Performed By: #### S MAB, JERRY #### [facility] , #### CMP, CBC #### [address] MCV (RBC) [Entitic vol] 90.6 fL Normal 80-100 [facility] Comment on above: Order Comment: Reaso n for Exam Hepatitis, autoimmune Performed By: #### S MAB, JERRY #### [facility] , #### CMP, CBC #### [address] Mean Corpuscular HGB Conc 33.4 g/dL Normal 32.0-35.0 [facility] Comment on above: Order Comment: Reaso n for Exam Hepatitis, autoimmune Performed By: #### S MAB, JERRY #### [facility] , #### CMP, CBC #### [place] [address] [place] Monocytes (Bld) [#/Vol] 0.5 10*3/uL Normal 0.0-0.8 [facility] Comment on above: Order Comment: Reaso n for Exam Hepatitis, autoimmune Performed By: #### S MAB, JERRY #### [facility] , #### CMP, CBC #### [place] [address] [place] Monocytes/100 WBC (Bld) 6.5 % Normal . [facility] Comment on above: Order Comment: Reaso n for Exam Hepatitis, autoimmune Performed By: #### S MAB, JERRY #### [facility] , #### CMP, CBC #### [place] [address] [place] Neutrophils (Bld) [#/Vol] 3.8 10*3/uL Normal 1.8-7.7 [facility] Comment on above: Order Comment: Reaso n for Exam Hepatitis, autoimmune Performed By: #### S MAB, JERRY #### [facility] , #### CMP, CBC #### [place] [address] [place] Neutrophils/100 WBC (Bld) 52.3 % Normal . [facility] Comment on above: Order Comment: Reaso n for Exam Hepatitis, autoimmune Performed By: #### S MAB, JERRY #### [facility] , #### CMP, CBC #### [facility] [address] [place] [address] [place] NRBC% 0.1 /100{WBC} Normal 0-0.5 [facility] Comment on above: Order Comment: Reaso n for Exam Hepatitis, autoimmune Performed By: #### S MAB, JERRY #### [facility] , #### CMP, CBC #### [address] Platelet mean volume (Bld) [Entitic vol] 8.5 fL Normal 6.3-10.7 [facility] Comment on above: Order Comment: Reaso n for Exam Hepatitis, autoimmune Performed By: #### S MAB, JERRY #### [facility] , #### CMP, CBC #### [address] Platelets (Bld) [#/Vol] 270 10*3/uL Normal 150-450 [facility] Comment on above: Order Comment: Reaso n for Exam Hepatitis, autoimmune Performed By: #### S MAB, JERRY #### [facility] , #### CMP, CBC #### [address] RBC (Bld) [#/Vol] 4.45 10*6/uL Normal 3.60-5.[address] [facility] Comment on above: Order Comment: Reaso n for Exam Hepatitis, autoimmune Performed By: #### S MAB, JERRY #### [facility] , #### CMP, CBC #### [address] WBC (Bld) [#/Vol] 7.3 10*3/uL Normal 3.8-11.6 [facility] Comment on above: Order Comment: Reaso n for Exam Hepatitis, autoimmune Performed By: #### S MAB, JERRY #### [facility] , #### CMP, CBC #### [place] [address] [place] Basophils (Bld) [#/Vol] 0.938403995 10*3/uL Normal 0.0-0.2 10*3/uL [employer] Other Basophils/100 WBC (Bld) 0.700 % . % [employer] Other Eosinophils (Bld) [#/Vol] 0.160432799 10*3/uL High 0.0-0.45 10*3/uL [employer] Other Eosinophils/100 WBC (Bld) 7.200 % . % [employer] Other Erythrocyte distribution width (RBC) [Ratio] 13.700 % Normal 11.9-15.3 % [employer] Other Hematocrit (Bld) [Volume fraction] 40.300 % Normal 34.0-46.4 % [employer] Other Hemoglobin (Bld) [Mass/Vol] 13.994784 g/dL Normal 11.8-15.4 g/dL [employer] Other Lymphocytes (Bld) [#/Vol] 2.539353919 10*3/uL Normal 1.00-4.8 10*3/uL [employer] Other Lymphocytes/100 WBC (Bld) 33.300 % . % [employer] Other MCH (RBC) [Entitic mass] 30.2000 pg Normal 24.7-34.3 pg [employer] Other MCV (RBC) [Entitic vol] 90.6000 fL Normal 80-100 fL [employer] Other Monocytes (Bld) [#/Vol] 0.250011194 10*3/uL Normal 0.0-0.8 10*3/uL [employer] Other Monocytes/100 WBC (Bld) 6.500 % . % [employer] Other Neutrophils (Bld) [#/Vol] 3.691172493 10*3/uL Normal 1.8-7.7 10*3/uL [employer] Other Neutrophils/100 WBC (Bld) 52.300 % . % [employer] Other Platelet mean volume (Bld) [Entitic vol] 8.5000 fL Normal 6.3-10.7 fL [employer] Other WBC (Bld) [#/Vol] 7.497076051 10*3/uL Normal 3.8 -11.6 10*3/uL [employer] Other Complete Blood Count Auto Diff 7.3 10*3/uL Normal 3.8-11.6 10*3/uL [employer] Other Complete Blood Count Auto Diff 33.4 g/dL Normal 32.0-35.0 g/dL [place] [employer] Other Complete Blood Count Auto Diff 0.1 /100{WBC} Normal 0-0.5 /100{WBC} [facility] [employer] Other Comprehensive Metabolic [facility] 09-01-2022 Albumin [Mass/Vol] 3.7 g/dL Normal 3.2-5.5 [facility] Comment on above: Order Comment: Reaso n for Exam Hepatitis, autoimmune Performed By: #### S MAB, JERRY #### [facility] , #### CMP, CBC #### [facility] [address] [place] [address] Albumin/Globulin [Mass ratio] 1.7 {ratio} Normal [facility] Comment on above: Order Comment: Reaso n for Exam Hepatitis, autoimmune Performed By: #### S MAB, JERRY #### [facility] , #### CMP, CBC #### [facility] [address] [place] [address] ALP [Catalytic activity/Vol] 64 U/L Normal 32-92 [facility] Comment on above: Order Comment: Reaso n for Exam Hepatitis, autoimmune Result Comment: PERF ORMED BY: [place] [address] PATHOLOGIST [employer] MADELINE EDGAR M.D. Performed By: #### S MAB, JERRY #### [facility] , #### CMP, CBC #### [facility] [address] ALT [Catalytic activity/Vol] 14 U/L Normal 10-60 [employer] Other Comment on above: Order Comment: Reaso n for Exam Hepatitis, autoimmune Performed By: #### S MAB, JERRY #### [facility] , #### CMP, CBC #### [facility] [address] Anion gap [Moles/Vol] 8.5 mmol/L Normal 6.0-15.0 [facility] Comment on above: Order Comment: Reaso n for Exam Hepatitis, autoimmune Performed By: #### S MAB, JERRY #### [facility] , #### CMP, CBC #### [address] AST [Catalytic activity/Vol] 16 U/L Normal 10-42 [facility] Comment on above: Order Comment: Reaso n for Exam Hepatitis, autoimmune Performed By: #### S MAB, JERRY #### [facility] , #### CMP, CBC #### [facility] [address] [place] [address] [place] Bilirubin [Mass/Vol] 0.5 mg/dL Normal 0.3-1.2 [facility] Comment on above: Order Comment: Reaso n for Exam Hepatitis, autoimmune Performed By: #### S MAB, JERRY #### [facility] , #### CMP, CBC #### [facility] [address] [place] [address] [place] Calcium [Mass/Vol] 9.1 mg/dL Normal 8.2-10.2 [facility] Comment on above: Order Comment: Reaso n for Exam Hepatitis, autoimmune Performed By: #### S MAB, JERRY #### [facility] , #### CMP, CBC #### [facility] [address] [place] [address] [place] Chloride [Moles/Vol] 106 mmol/L Normal 95-114 [facility] Comment on above: Order Comment: Reaso n for Exam Hepatitis, autoimmune Performed By: #### S MAB, JERRY #### [facility] , #### CMP, CBC #### [facility] [address] [place] [address] CO2 [Moles/Vol] 24.6 mmol/L Normal 22.0-30.0 [facility] Comment on above: Order Comment: Reaso n for Exam Hepatitis, autoimmune Performed By: #### S MAB, JERRY #### [facility] , #### CMP, CBC #### [facility] [address] [place] [address] Creatinine [Mass/Vol] 0.64 mg/dL Normal 0.44-1.03 [facility] Comment on above: Order Comment: Reaso n for Exam Hepatitis, autoimmune Performed By: #### S MAB, JERRY #### [facility] , #### CMP, CBC #### [facility] [address] [place] [address] Estimated GFR ( Amalia > 60 [facility] Comment on above: Order Comment: Reaso n for Exam Hepatitis, autoimmune Result Comment: GFR estimated reference range: According to KDOQI guidelines, <60 ml/min/1.73m2 is sufficient to diagnose a patient with chronic kidney disease. Performed By: #### S MAB, JERRY #### [facility] , #### CMP, CBC #### [facility] [address] [place] [address] Estimated GFR (Non- Am > 60 [facility] Comment on above: Order Comment: Reaso n for Exam Hepatitis, autoimmune Performed By: #### S MAB, JERRY #### [facility] , #### CMP, CBC #### [facility] [address] [place] [address] [place] Globulin (S) [Mass/Vol] 2.2 g/dL [facility] Comment on above: Order Comment: Reaso n for Exam Hepatitis, autoimmune Performed By: #### S MAB, JERRY #### [facility] , #### CMP, CBC #### [address] Glucose [Mass/Vol] 80 mg/dL Normal 70-100 [facility] Comment on above: Order Comment: Reaso n for Exam Hepatitis, autoimmune Result Comment: [facility] Glucose Reference Range is dependent on time and content of last meal. Glucose of more than 200 mg/dL in a nonstressed, ambulatory subject supports the diagnosis of Diabetes Mellitus. ADA recommended reference range Performed By: #### S MAB, JERRY #### [facility] , #### CMP, CBC #### [address] Potassium [Moles/Vol] 4.1 mmol/L Normal 3.5-5.1 [facility] Comment on above: Order Comment: Reaso n for Exam Hepatitis, autoimmune Performed By: #### S MAB, JERRY #### [facility] , #### CMP, CBC #### [place] [address] [place] Protein [Mass/Vol] 5.9 g/dL Low 6.1-7.9 [facility] Comment on above: Order Comment: Reaso n for Exam Hepatitis, autoimmune Performed By: #### S MAB, JERRY #### [facility] , #### CMP, CBC #### [facility] [address] [place] [address] [place] Sodium [Moles/Vol] 135 mmol/L Low 136-146 [facility] Comment on above: Order Comment: Reaso n for Exam Hepatitis, autoimmune Performed By: #### S MAB, JERRY #### [facility] , #### CMP, CBC #### [place] [address] [place] Urea nitrogen [Mass/Vol] 9 mg/dL Normal 9-23 [facility] Comment on above: Order Comment: Reaso n for Exam Hepatitis, autoimmune Performed By: #### S MAB, JERRY #### [facility] , #### CMP, CBC #### [facility] [address] Albumin [Mass/Vol] 3.887784 g/dL Normal 3.2-5.5 g/dL [facility] [employer] Other Bilirubin [Mass/Vol] 0.8795171 mg/dL Normal 0.3- 1.2 mg/dL [employer] Other Calcium [Mass/Vol] 9.7998822 mg/dL Normal 8.2-10 .2 mg/dL [employer] Other CO2 [Moles/Vol] 24.11576660 mmol/L Normal 22.0-3 0.0 mmol/L [employer] Other Creatinine [Mass/Vol] 0.59145113 mg/dL Normal 0. 44-1.03 mg/dL [employer] Other Potassium [Moles/Vol] 4.08919804 mmol/L Normal 3 .5-5.1 mmol/L [employer] Other Protein [Mass/Vol] 5.041252 g/dL Low 6.1-7.9 g/dL [facility] [employer] Other Comprehensive Metabolic Panel > 60 [employer] Other Comprehensive Metabolic Panel 2.2 g/dL [employer] Other Creatinine and Glomerular fi ltration rate.predicted panel (S/P/Bld)Ordered By: Nir Zamarripa on 09-01-2022 Creatinine [Mass/Vol] 0.64 mg/dL 0.44-1.03 [facility] Eosinophils Auto (Bld) [#/Vo l]Ordered By: Nir Zamarripa on 09-01-2022 Eosinophils (Bld) [#/Vol] 0.5 10*3/uL 0.0-0.45 [facility] Eosinophils/100 WBC Auto (Bl d)Ordered By: Nir Zamarripa on 09-01-2022 Eosinophils/100 WBC (Bld) 7.2 % . [facility] Erythrocyte distribution wid th Auto (RBC) [Ratio]Ordered By: Nir Zamarripa on 09-01-2022 Erythrocyte distribution width (RBC) [Ratio] 13.7 % 11.9-15.3 [facility] Erythrocytes [#/volume] in B lood by Automated countOrdered By: Nir Zamarripa on 09-01-2022 RBC (Bld) [#/Vol] 4.45 10*6/uL Normal 3.60-5.[address] [facility] Estimated glomerular filtrat ion rate (GFR) non- AmericanOrdered By: Nir Zamarripa on 09-01-2022 GFR/1.73 sq M.predicted among non-blacks MDRD (S/P/Bld) [Vol rate/Area] > 60 mL/Min [facility] Globulin Calc (S) [Mass/Vol] Ordered By: Nir Zamarripa on 09-01-2022 Globulin (S) [Mass/Vol] 2.2 g/dL [facility] Hematocrit Auto (Bld) [Volum e fraction]Ordered By: Nir Zamarripa on 09-01-2022 Hematocrit (Bld) [Volume fraction] 40.3 % 34.0-46.4 [facility] Hemoglobin [Mass/volume] in BloodOrdered By: Nir Zamarripa on 09-01-2022 Hemoglobin (Bld) [Mass/Vol] 13.5 g/dL 11.8-15.4 [facility] Leukocytes [#/volume] correc kofi for nucleated erythrocytes in Blood by Automated counOrdered By: Nir Zamarripa on 09-01-2022 WBC corrected for nucl RBC Auto (Bld) [#/Vol] 7.3 10*3/uL 3.8-11.6 [facility] Lymphocytes Auto (Bld) [#/Vo l]Ordered By: Nir Zamarripa on 09-01-2022 Lymphocytes (Bld) [#/Vol] 2.4 10*3/uL 1.00-4.8 [facility] Lymphocytes/100 WBC Auto (Bl d)Ordered By: Nir Zamarripa on 09-01-2022 Lymphocytes/100 WBC (Bld) 33.3 % . [facility] MCH Auto (RBC) [Entitic mass ]Ordered By: Nir Zamarripa on 09-01-2022 MCH (RBC) [Entitic mass] 30.2 pg 24.7-34.3 [facility] MCHC Auto (RBC) [Mass/Vol]Or dered By: Nir Zamarripa on 09-01-2022 MCHC (RBC) [Mass/Vol] 33.4 g/dL 32.0-35.0 [facility] MCV Auto (RBC) [Entitic vol] Ordered By: Nir Zamarripa on 09-01-2022 MCV (RBC) [Entitic vol] 90.6 fL 80-100 [facility] Monocytes Auto (Bld) [#/Vol] Ordered By: Nir Zamarripa on 09-01-2022 Monocytes (Bld) [#/Vol] 0.5 10*3/uL 0.0-0.8 [facility] Monocytes/100 WBC Auto (Bld) Ordered By: Nir Zamarripa on 09-01-2022 Monocytes/100 WBC (Bld) 6.5 % . [facility] Neutrophils Auto (Bld) [#/Vo l]Ordered By: Nir Zamarripa on 09-01-2022 Neutrophils (Bld) [#/Vol] 3.8 10*3/uL 1.8-7.7 [facility] Neutrophils/100 WBC Auto (Bl d)Ordered By: Nir Zamarripa on 09-01-2022 Neutrophils/100 WBC (Bld) 52.3 % . [facility] No Panel InformationOrdered By: Nir Zamarripa on 09-01-2022 Estimated GFR () > 60 mL/Min [facility] Comment on above: GFR estimated refere nce range: According to KDOQI guidelines, <60 ml/min/1.73m2 is sufficient to diagnose a patient with chronic kidney disease. Pharmacy Creatinine Clearance (Chem N/A [facility] Nucleated erythrocytes [Pres ence] in Blood by Automated countOrdered By: Nir Zamarripa on 09-01-2022 Nucleated RBC Auto Ql (Bld) 0.1 /100{WBC} 0-0.5 [facility] Platelet mean volume Auto (B ld) [Entitic vol]Ordered By: Nir Zamarripa on 09-01-2022 Platelet mean volume (Bld) [Entitic vol] 8.5 fL 6.3-10.7 [facility] Platelets [#/volume] in Bloo d by Automated countOrdered By: Nir Zamarripa on 09-01-2022 Platelets (Bld) [#/Vol] 270 10*3/uL Normal 150-450 10*3/uL [facility] Protein [Mass/volume] in Ser um or PlasmaOrdered By: Nir Zamarripa on 09-01-2022 Protein [Mass/Vol] 5.9 g/dL 6.1-7.9 [facility] Serum or plasma alanine martines otransferase measurement without P-5'-P (enzymatic activiOrdered By: Nir Zamarripa on 09-01-2022 ALT No additional P-5'-P [Catalytic activity/Vol] 14 U/L 10-60 [facility] Serum or plasma albumin/glob ulin mass ratioOrdered By: Nir Zamarripa on 09-01-2022 Albumin/Globulin [Mass ratio] 1.7 {ratio} [facility] Serum or plasma alkaline jessica sphatase measurement (enzymatic activity/volume)Ordered By: Nir Zamarripa on 09-01-2022 ALP [Catalytic activity/Vol] 64 U/L Normal 32-92 U/L [facility] Serum or plasma anion gap de terminationOrdered By: Nir Zamarripa on 09-01-2022 Anion gap [Moles/Vol] 8.5 mmol/L 6.0-15.0 [facility] Serum or plasma aspartate am inotransferase measurement (enzymatic activity/volume)Ordered By: Nir Zamarripa on 09-01-2022 AST [Catalytic activity/Vol] 16 U/L Normal 10-42 U/L [facility] Serum or plasma calcium sven urement (mass/volume)Ordered By: Nir Zamarripa on 09-01-2022 Calcium [Mass/Vol] 9.1 mg/dL 8.2-10.2 [facility] Serum or plasma chloride capri surement (moles/volume)Ordered By: Nir Zamarripa on 09-01-2022 Chloride [Moles/Vol] 106 mmol/L Normal 95-114 mmol/L [facility] Serum or plasma glucose sven urement (mass/volume)Ordered By: Nir Zamarripa on 09-01-2022 Glucose [Mass/Vol] 80 mg/dL Normal 70-100 mg/dL [facility] Comment on above: ADA recommended refe rence rangeRandom Glucose Reference Range is dependent on time and content of last meal. Glucose of more than 200 mg/dL in a nonstressed, ambulatory subject supports the diagnosis of Diabetes Mellitus. Serum or plasma potassium me asurement (moles/volume)Ordered By: Nir Zamarripa on 09-01-2022 Potassium [Moles/Vol] 4.1 mmol/L 3.5-5.1 [facility] Serum or plasma sodium measu rement (moles/volume)Ordered By: Nir Zamarripa on 09-01-2022 Sodium [Moles/Vol] 135 mmol/L Low 136-146 mmol/L [facility] Serum or plasma total biliru bin measurement (mass/volume)Ordered By: Nir Zamarripa on 09-01-2022 Bilirubin [Mass/Vol] 0.5 mg/dL 0.3-1.2 [facility] Serum or plasma total carbon dioxide measurement (moles/volume)Ordered By: Nir Zamarripa on 09-01-2022 CO2 [Moles/Vol] 24.6 mmol/L 22.0-30.0 [facility] Serum or plasma urea nitroge n measurement (mass/volume)Ordered By: Nir Zamarripa on 09-01-2022 Urea nitrogen [Mass/Vol] 9 mg/dL Normal 9-23 mg/dL [facility] Smooth Muscle Antibodyon Smooth Muscle Antibody 17 Normal 0-19 [facility] Comment on above: Order Comment: Reaso n for Exam Hepatitis, autoimmune Result Comment: Nega tive 0 - 19 Weak positive 20 - 30 Moderate to strong positive >30 Actin Antibodies are found in 52-85% of patients with autoimmune hepatitis or chronic active hepatitis and in 22% of patients with primary biliary cirrhosis. Performed at: [address] [id number] [employer] Laborer: Cyrus Abbott PhD, Phone: [phone] PERFORMED BY: [place] [address] PATHOLOGIST SPRING [employer]MER MACHINE MADELINE EDGAR M.D. Performed By: #### S MAB, JERRY #### [facility] , #### CMP, CBC #### [address] Smooth Muscle Antibody 17 0-19 No rth [employer] Other WBC Auto (Bld) [#/Vol]Ordere d By: Nir Zamarripa on 09-01-2022 WBC (Bld) [#/Vol] 7.3 10*3/uL 3.8-11.6 [facility] XR CHEST 2 Von 01-20-2022 [...] by: SALOMÓN CERVANTES Date: 2022-01-20 12:59 Normal [facility] Discharge Planning [id number] 10-30-2019 Discharge Planning Note2 Discharge Planning: Anticipated Discharge [id number] Assessment: Discharge Planning Assessment [id number] Stated Reason for Admissionseizures(1) [place]) Lives Withsignificant other; adult child(kristofer)(1) Living Arrangements[place](1) Resource/Environmenta l Concernsnone(1) [place]) Services Anticipated at Transitionnon(1) Nursing Checklist: Lines/Cathetersremove d/appropriate for next level of care Discharge Med Rec Reconciled with eMARonna Patient has Prescriptionsno prescriptions needed DME equipment orderedN/A Transportation for Discharge Confirmedyes Follow up Reviewedyes Discharge Instructions Reviewed WithPatient and Family Member Discharge Instructions Outcomeverbalize recall/understanding County InvolvementN/A Discharge Instructions Review Completed with Patient/Family (diet, activity, pt instructions)yes Discharge Documentation: Discharge/Transfer Date/[id number] 13:32 Discharge Modeambulatory Discharged Accompanied Byfamily member Transportation Methodprivate car Valuables/Medications /Belongings Returnedyes Security Envelope ReturnedN/A Final DispositionHome Electronic Signatures: Purnima Pritchett (RASHAUN) (Signed 30-Oct-2019 13:33) Authored: Discharge Planning Note2 Last Updated: 30-Oct-2019 13:33 by Purnima Pritchett (RASHAUN) References: 1. Data Referenced From Patient Profile - Adult v2 28-Oct-2019 10:36 Normal [facility] Discharge [id number] Discharge Profile2 Discharge Orders: Anticipated Discharge Date: Anticipated Discharge [id number] Hospital Providers: Provider RoleProvider Name Amberly Fay [...] Clinic Call to Schedule in4 weeks Scheduled Date/[id number] 16:30 CommentsOrder received after discharge Electronic Signatures: Virgil Xie ( (Resident)) (Signed 30-Oct-2019 12:16) Authored: Discharge Orders, Epilepsy/Seizure, Hospital Course (Home Care/Gold Form), Provider FINAL REVIEW of Orders, Appointments, Gold Form - Supervisor Volunteer Services Summary Halle Nails (PT ACC REP) (Signed 31-Oct-2019 10:49) Authored: Epilepsy/Seizure, Appointments Last Updated: 31-Oct-2019 10:49 by Halle Nails (PT ACC REP) Normal [facility] Daily Progress Note-Epilepsy on 10-29-2019 Daily Progress Note-Epilepsy Service: Epilepsy Subjective Data: 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 Overnight Events: Patient had an uneventful night. Objective Data: Objective Information: T PRBPSpO2 [id number]/7898 % Date/Time10/29 8:152 8:152 8:152 8:152 8:15 Range(36.1C - 36.2C ) [...] the note. I personally evaluated the patient [id number] Electronic Signatures: Amberly Pressley) (Signed 10-Nov-2019 15:05) Authored: Signature/Cosignature /Attestation Co-Signer: Service, Subjective Data, Objective Data, Assessment and Plan, Signature/Cosignature /Attestation Liane Charles (Fellow)) (Signed 29-Oct-2019 16:37) Authored: Service, Subjective Data, Objective Data, Assessment and Plan, Signature/Cosignature /Attestation Last Updated: 10-Nov-2019 15:05 by Amberly Pressley) Normal [facility] Admission Risk Screen - Adul ton 10-28-2019 Admission Risk Screen - Adult Allergies: Allergies: Phenergan: Unknown doxycycline: Unknown sulfa drugs: Unknown contrast (specific type unknown): Unknown Patient Verification: New W ID Band Applied in my Departmentno Type of ID Patient is WearingW wristband, but not applied here Patient Transferred from Other [facility] ([facility], [facility],etc)no Patient Identity Verified Bypatient ID [...] risk with low risk for associated injury [place] Safety InterventionsWDL *orient to call system *instruct [...] Learning Preferencesverbal instruction Cultural Considerationsnone Developmental Considerationsnone Nondenominational Considerationsnone Learning Assessment (Other Learner): Other learner [...] an injured patient at a Trauma Center [place] [facility]): no Vaccinations: Vaccination - Influenza Vaccination Screen: Is it flu season (between and January 11)Yes Screening for identified contraindications to influenza vaccination patient/caregiver refusal Vaccination - Pneumonia Vaccination Screen: Patient has received a previous pneumonia vaccine:no/unknown... Immunocompetent persons with underlying chronic conditions or reside in chcf care facilitieschronic liver disease, including cirrhosis Persons [...] Updated: 28-Oct-2019 11:33 by Samara Sanchez (HUSSAIN) [facility] CBC AND DIFFERENTIALon 02-14 -2020 % AUTOMATED IMMATURE GRAN 0.4 % Normal 0.0 - 0.9 [facility] Comment on above: Result Comment: Perc ent differential counts (%) should be interpreted in the context of the absolute cell counts (cells/L). Performed By: #### C BCDF #### [facility] [address] [place] [address] Basophils (Bld) [#/Vol] 0.04 10*3/uL Normal 0.00 - 0.10 [facility] Comment on above: Performed By: #### C BCDF #### [facility] [address] [place] [address] Basophils/100 WBC (Bld) 0.5 % Normal 0.0 - 2.0 [facility] Comment on above: Performed By: #### C BCDF #### [facility] [address] [place] [address] Eosinophils (Bld) [#/Vol] 0.46 10*3/uL Normal 0.00 - 0.70 [facility] Comment on above: Performed By: #### C BCDF #### [facility] [address] [place] [address] Eosinophils/100 WBC (Bld) 5.9 % Normal 0.0 - 6.0 [facility] Comment on above: Performed By: #### C BCDF #### [facility] [address] [place] [address] Erythrocyte distribution width (RBC) [Ratio] 13.1 % Normal 11.5 - 14.5 [facility] Comment on above: Performed By: #### C BCDF #### [facility] [address] [place] [address] Hematocrit (Bld) [Volume fraction] 41.4 % Normal 36.0 - 46.0 [facility] Comment on above: Performed By: #### C BCDF #### [facility] [address] [place] [address] Hemoglobin (Bld) [Mass/Vol] 13.9 g/dL Normal 12.0 - 16.0 [facility] Comment on above: Performed By: #### C BCDF #### [facility] [address] [place] [address] Lymphocytes (Bld) [#/Vol] 2.45 10*3/uL Normal 1.20 - 4.80 [facility] Comment on above: Performed By: #### C BCDF #### [facility] [address] [place] [address] Lymphocytes/100 WBC (Bld) 31.2 % Normal 13.0 - 44.0 [facility] Comment on above: Performed By: #### C BCDF #### [facility] [address] [place] [address] MCHC (RBC) [Mass/Vol] 33.6 g/dL Normal 32.0 - 36.0 [facility] Comment on above: Performed By: #### C BCDF #### [facility] [address] [place] [address] MCV (RBC) [Entitic vol] 90 fL Normal 80 - 100 [facility] Comment on above: Performed By: #### C BCDF #### [facility] [address] [place] [address] Monocytes (Bld) [#/Vol] 0.59 10*3/uL Normal 0.10 - 1.00 [facility] Comment on above: Performed By: #### C BCDF #### [facility] [address] [place] [address] Monocytes/100 WBC (Bld) 7.5 % Normal 2.0 - 10.0 [facility] Comment on above: Performed By: #### C BCDF #### [facility] [address] [place] [address] Neutrophils (Bld) [#/Vol] 4.29 10*3/uL Normal 1.20 - 7.70 [facility] Comment on above: Performed By: #### C BCDF #### [facility] [address] [place] [address] Neutrophils/100 WBC (Bld) 54.5 % Normal 40.0 - 80.0 [facility] Comment on above: Performed By: #### C BCDF #### [facility] [address] [place] [address] Nucleated RBC/100 WBC (Bld) [Ratio] 0.0 /100 WBC Normal 0.0-0.0 [facility] Comment on above: Performed By: #### C BCDF #### [facility] [address] [place] [address] Platelets (Bld) [#/Vol] 254 10*3/uL Normal 150 - 450 [facility] Comment on above: Performed By: #### C BCDF #### [facility] [address] [place] [address] RBC (Bld) [#/Vol] 4.60 x10E12/L Normal 4.00 - 5.20 [facility] Comment on above: Performed By: #### C BCDF #### [facility] [address] [place] [address] WBC (Bld) [#/Vol] 7.9 10*3/uL Normal 4.4 - 11.3 [facility] Comment on above: Performed By: #### C BCDF #### [facility] [address] [place] [address] COMPREHENSIVE PANELon 2019 Albumin [Mass/Vol] 4.2 g/dL Normal 3.4 - 5.0 [facility] Comment on above: Performed By: #### C MP #### [facility] [address] [place] [address] ALP [Catalytic activity/Vol] 73 U/L Normal 33 - 110 [facility] Comment on above: Performed By: #### C MP #### [facility] [address] [place] [address] ALT [Catalytic activity/Vol] 8 U/L Normal 7 - 45 [facility] Comment on above: Result Comment: Tabatha ents treated with Sulfasalazine may generate falsely decreased results for ALT. Performed By: #### C MP #### [facility] [address] [place] [address] Anion gap [Moles/Vol] 11 mmol/L Normal 10 - 20 [facility] Comment on above: Performed By: #### C MP #### [facility] [address] [place] [address] AST [Catalytic activity/Vol] 11 U/L Normal 9 - 39 [facility] Comment on above: Performed By: #### C MP #### [facility] [address] [place] [address] Bilirubin [Mass/Vol] 0.5 mg/dL Normal 0.0 - 1.2 [facility] Comment on above: Performed By: #### C MP #### [facility] [address] [place] [address] Calcium [Mass/Vol] 9.4 mg/dL Normal 8.6 - 10.6 [facility] Comment on above: Performed By: #### C MP #### [facility] [address] [place] [address] Chloride [Moles/Vol] 108 mmol/L High 98 - 107 [facility] Comment on above: Performed By: #### C MP #### [facility] [address] [place] [address] Creatinine [Mass/Vol] 0.55 mg/dL Normal 0.50 - 1.05 [facility] Comment on above: Performed By: #### C MP #### [facility] [address] [place] [address] GFR- AM. >60 Normal >60 [facility] Comment on above: Result Comment: CALC ULATIONS OF ESTIMATED GFR ARE PERFORMED USING THE MDRD STUDY EQUATION FOR THE IDMS-TRACEABLE CREATININE METHODS. CLIN CHEM 2007;53:766-72 Performed By: #### C MP #### [facility] [address] [place] [address] GFR-NON AM. >60 Normal >60 [facility] Comment on above: Performed By: #### C MP #### [facility] [address] [place] [address] Glucose [Mass/Vol] 77 mg/dL Normal 74 - 99 [facility] Comment on above: Performed By: #### C MP #### [facility] [address] [place] [address] HCO3 (Bld) [Moles/Vol] 27 mmol/L Normal 21 - 32 [facility] Comment on above: Performed By: #### C MP #### [facility] [address] [place] [address] Potassium [Moles/Vol] 3.7 mmol/L Normal 3.5 - 5.3 [facility] Comment on above: Performed By: #### C MP #### [facility] [address] [place] [address] Protein [Mass/Vol] 6.3 g/dL Low 6.4 - 8.2 [facility] Comment on above: Performed By: #### C MP #### [facility] [address] [place] [address] Sodium [Moles/Vol] 142 mmol/L Normal 136 - 145 [facility] Comment on above: Performed By: #### C MP #### [facility] [address] [place] [address] Urea nitrogen [Mass/Vol] 8 mg/dL Normal 6 - 23 [facility] Comment on above: Performed By: #### C MP #### [facility] [address] 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 The patient first sought treatment at [facility] Neurology ([place]), who performed an EEG [...] Due to recurrent symptoms she presented to [facility]-ED and had CT which she was [...] had a routine EEG in February 2018 ([facility]), which described a normal EEG with good background, but occasionally featured sharply contoured waves though did not give location. Epilepsy risk factors - Born at term by after uneventful , with no known complications at . - Normal developmental milestones - No history of febrile convulsion or [employer] infections. - No family history of epilepsy. - No history of major head trauma with loss of consciousness. - No history of [employer] surgery. REVIEW OF SYSTEMS: 14 system review negative except for mentioned above. PAST MEDICAL AND SURGICAL HISTORY: Autoimmune hepatitis Eosinophilic esophagitis Asthmas Left knee meniscal tear Tonsils, adenoids JAILYN-USO (Left oophorectomy) FAMILY HISTORY: - No seizures or epilepsy in the family - Uncle with brain cancer - Father with stroke SOCIAL HISTORY: -Occupation: [employer]) -Smoking: Never -Alcohol: Denies -Illicit drugs: Denies ALLERGY: Contrast dye CURRENT MEDICATION: None Allergies: Phenergan: Unknown doxycycline: Unknown sulfa drugs: Unknown contrast (specific type unknown): Unknown Medications Prior to Admission: Outpatient Meds have not been reviewed. Objective Information: Objective Information: T PRBPSpO2 [id number]/8010 0% Date/Time10/28 11: 11: 11: 11: 11:00 [...] light touch all 4 extremities. COORDINATION: - Kbtxxg-Gium-Gqybab: intact without dysmetria or overshoot in both [...] the note. I personally evaluated the patient [id number] Attending Provider Inpatient Certification StatementI certify this patients need for inpatient care based on the above documentation including; the order to admit as inpatient, the anticipated length of stay, diagnosis, problem list and plan of care, and discharge plan. Admission Order - View OnlyCurrent Admission Order. [place] [place] [facility] [facility] [place]mitting Diagnosis, R56.9 Seizure Admitting Service, Neurology [...] Profile - Adult v2 28-Oct-2019 10:36 Normal [facility] Patient Profile - Adult v2on 10-28-2019 Patient Profile - Adult v2 Profile: Initial Info: How to be Addressedjill Spoken Language PreferredEnglish Are you currently using the Personal Electronic Health Record or [employer] Labsyes Stated Reason for Admissionseizures Wants Family/Rep Notified of Admissionn/a; family present Notify PCPdo not notify PCP Informed of Patient Vis[place]yes [place] Patient Belongingsremains with patient Medications Brought to Hospitalno General Health: Weight in kg86.6 kilogram(s) Weight in pdi812 pound(s) Height in feet5 feet Height in inches3 inch(es) Height in cm160 centimeter(s) BMI (kg/m2)33.828 square meter Weight Methodstated Scale Typebed Height Methodstated [facility] Based Care: How would you like [...] Living Arrangementshouse Resource/Environmenta l Concernsnone [place] Services Anticipated at Transitionnone Significant IndicatorsComplete Information Review: Allergies, Home Meds and Significant Events have been Reviewed and Verified with Patient/Familyyes ALLERGY, INTOLERANCE, ADVERSE EVENT: Allergies: Phenergan: Drug, Unknown, Active doxycycline: Drug, Unknown, Active sulfa drugs: Drug Category, Unknown, Active Electronic Signatures: Samara Sanchez (HUSSAIN) (Signed 28-Oct-2019 11:37) Authored: Profile, Additional Information Miguel A Rico) (Signed 28-Oct-2019 10:37) Authored: Profile, Additional Information Last Updated: 28-Oct-2019 11:37 by Samara Sanchez (CN) Normal [facility] Chart Updateon 10-25-2019 Chart Update Active Problems Chronic headaches (784.0) (R51) Classic migraine with aura (346.00) (G43.109) Common migraine without aura (346.10) (G43.009) Facial numbness (782.0) (R20.0) Hemisensory deficit (781.99) (R29.818) Nonspecific paroxysmal spell (780.09) (R40.4) Sensory disturbance (782.0) (R20.9) Spell of dizziness (780.4) (R42) Chart Update Progress Note Free Text_UH: Supplemental records obtained from [facility]. Pertinent summary below: 01/18/2018 Presented to [facility] ED with numbness of the right side [...] ASA 81mg for paresthesias. 02/17/2018 Presented to [facility] ED with right-sided facial numbness and drooping, [...] from prolonged EEG monitoring. 12/07/2018 Presented to [facility] ED with multiple vague complaints of dizziness (no vertigo), funny feeling on the right side of her face (worse when standing up). Reported a history of seizures but an intolerance for levetiracetam. Denied headache, neck stiffness. No other symptoms. Exam was normal. CT head was unremarkable. Advised to increase fluid increase fluids and was discharged home. 02/01/2019 Presented to [facility] ED with palpitations and arrhythmia, feeling like her heart was skipping beats. Denied any nausea, SOB, CP. No recent illness. No fevers, chills, diarrhea, abdominal pain. Would occur several times a minute initially, then became less frequent. Observed to have PVCs on exam. Discharged home with Holter (unknown if had placed). 06/12/2019 Presented to [facility] ED with nausea, vomiting, and diarrhea. Reported using multiple scopolamine patches (5 patches in 6 days, Rxd for 1 patch every 3 days; reported more given getting wet while scuba-diving). Noted she felt nauseated with blurred vision, dry mouth, urinary frequency, and warm/heavy feeling in her body. No confusion, agitation, or hallucinations. Finley to be dehydrated. Given fluids and discharged. 06/14/2019 Presented to [facility] ED with severe nausea, vomiting, dizziness, lightheadedness, blurry vision, diarrhea, and headache. Had recently removed a scopolamine patch after a cruise to the [facility]. Stated also her seizures are acting up, which she relayed were focal, left-sided seizures that cant be seen. Not on AEDs, but [facility] [facility] Exam was unremarkable, though noted to be anxious and tearful. CT head was normal. Given Flagyl 500mg PO (c/f GI illness after recent trip) and discharged home. 07/19/2019 Presented to [facility] ED with dizziness. Stated she thinks she [...] visit. Alvino Beltrán MD [facility] Pager: [phone] Signatures Electronically signed by : Didier Beltrán MD; Oct 25 2019 1:55PM EST (Author) Normal TouchHammerless Vital Signs Date Time Vital Sign Value Performing Clinician Facility 07-04-2024 14:50-0400 Body temperature 97.5 [degF] Dallin Claudio NP Work Phone: [facility] 07-04-2024 14:50-0400 Heart rate 86 /min Dallin Claudio HEAD OF CYTOGENETICS Work Phone: [facility] 07-04-2024 14:50-0400 SaO2% (BldA) [Mass fraction] 99 % Dallin Claudio HEAD OF CYTOGENETICS Work Phone: [facility] 01-12-2024 14:41-0400 Body height 158.12 cm [facility] 01-12-2024 14:41-0400 Body mass index (BMI) [Ratio] 37 kg/m2 [facility] 01-12-2024 14:41-0400 Body weight 92.78 kg [facility] 01-12-2024 14:41-0400 Diastolic blood pressure 84 mm[Hg] [facility] 01-12-2024 14:41-0400 Heart rate 69 /min [facility] 01-12-2024 14:41-0400 Respiratory rate 18 /min [facility] 01-12-2024 14:41-0400 SaO2% (BldA) [Mass fraction] 98 % [facility] 01-12-2024 14:41-0400 Systolic blood pressure 127 mm[Hg] [facility] 10-15-2023 14:51-0500 Body height 160 cm Shaikh Jose ADAM Work Phone: [facility] 10-15-2023 14:51-0500 Body mass index (BMI) [Ratio] 38.09 kg/m2 Shaikh Jose ADAM Work Phone: [facility] 10-15-2023 14:51-0500 Body temperature 96.91 [degF] Shaikh Jose ADAM Work Phone: [facility] 10-15-2023 14:51-0500 Body weight 97.52 kg Shaikh Jose ADAM Work Phone: [facility] 10-15-2023 14:51-0500 Diastolic blood pressure 80 mm[Hg] Shaikh Jose ADAM Work Phone: [facility] 10-15-2023 14:51-0500 Heart rate 79 /min Shaikh Jose ADAM Work Phone: [facility] 10-15-2023 14:51-0500 SaO2% (BldA) [Mass fraction] 96 % Shaikh Jose ADAM Work Phone: [facility] 10-15-2023 14:51-0500 Systolic blood pressure 100 mm[Hg] Shaikh Jose ADAM Work Phone: [facility] 04-30-2023 15:00-0400 Body height 160.02 cm Faina Miller Other [employer] Other 04-30-2023 15:00-0400 Body mass index (BMI) [Ratio] 36.1 kg/m2 Faina Miller Other [employer] Other 04-30-2023 15:00-0400 Body temperature 98 [degF] Faina Miller Other [employer] Other 04-30-2023 15:00-0400 Body weight 92.44 kg Faina Miller Other [employer] Other 04-30-2023 15:00-0400 Diastolic blood pressure 76 mm[Hg] Faina Miller Other [employer] Other 04-30-2023 15:00-0400 Respiratory rate 18 /min Faina Miller Other [employer] Other 04-30-2023 15:00-0400 SaO2% (BldA) [Mass fraction] 99 % Faina Miller Other [employer] Other 08-17-2023 15:00-0400 Systolic blood pressure 122 mm[Hg] Faina Miller Other [employer] Other 12-16-2021 16:30-0400 Body height 160.02 cm Nir Zamarripa Other [employer] Other 12-16-2021 16:30-0400 Body mass index (BMI) [Ratio] 31.35 kg/m2 Nir Zamarripa Other [employer] Other 12-16-2021 16:30-0400 Body weight 80.29 kg Nir Zamarripa Other [employer] Other 10-23-2021 15:55-0500 Body height 160.02 cm Ellie Viridiana Other [employer] Other 10-23-2021 15:55-0500 Body mass index (BMI) [Ratio] 31.35 kg/m2 Ellie Viridiana Other [employer] Other 10-23-2021 15:55-0500 Body temperature 97.9 [degF] Ellie Viridiana Other [employer] Other 10-23-2021 15:55-0500 Body weight 80.29 kg Ellie Viridiana Other [employer] Other 10-23-2021 15:55-0500 Diastolic blood pressure 90 mm[Hg] Ellie Viridiana Other [employer] Other 10-23-2021 15:55-0500 Respiratory rate 18 /min Ellie Viridiana Other [employer] Other 10-23-2021 15:55-0500 SaO2% (BldA) [Mass fraction] 99 % Ellie Kemp Other [employer] Other 10-23-2021 15:55-0500 Systolic blood pressure 143 mm[Hg] Ellie Kemp Other [employer] Other 09-24-2021 15:00-0500 Body height 160.02 cm Nir Zamarripa Other [employer] Other 09-24-2021 15:00-0500 Body mass index (BMI) [Ratio] 29.23 kg/m2 Nir Carrenoormack Other [employer] Other 09-24-2021 15:00-0500 Body weight 74.84 kg Nir Hickeyack Other [employer] Other Encounters Encounter Date Encounter Type Care Provider Facility Start: 07-22-2024 End: 07-22-2024 ambulatory Viral Lewis MD Facility:[facility] Start: 07-19-2024 End: 07-19-2024 ambulatory Mavis Candelario PA-C Facility:[facility] Start: 07-04-2024 End: 07-04-2024 ambulatory DALLIN CLAUDIO Not Available Start: 07-04-2024 End: 07-04-2024 Office outpatient visit 25 minutes Dallin Claudio HEAD OF CYTOGENETICS Work Phone: [facility] Comment on above: Acute vaginitis (Katia freddy Dx); Dysuria Start: 07-04-2024 End: 07-06-2024 External Result Encounter Dallin Claudio HEAD OF CYTOGENETICS Work Phone: [facility] Unsolicited Start: 07-04-2024 End: 07-06-2024 External Result Encounter Dallin Claudio HEAD OF CYTOGENETICS Work Phone: [facility] Unsolicited Start: 03-22-2024 End: 03-22-2024 ambulatory VIRAL LEWIS Not Available Start: 03-22-2024 Patient encounter procedure Dallin Claudio NP Work Phone: [facility] Start: 03-02-2024 End: 03-02-2024 ambulatory SHAIKH JOSE Not Available Start: 03-01-2024 End: 03-01-2024 ambulatory ANTHONY RIDDLE Not Available Start: 02-24-2024 End: 02-24-2024 ambulatory ANTHONY RIDDLE Not Available Start: 02-18-2024 End: 02-18-2024 ambulatory LINWOOD Cortez RAJESH Not Available Start: 02-11-2024 End: 02-11-2024 ambulatory Viral Lewis MD Facility:[facility] Start: 01-12-2024 End: 01-12-2024 ambulatory [facility] Work Phone: Start: 01-12-2024 End: 01-12-2024 Patient encounter procedure [facility] Work Phone: Start: 01-07-2024 End: 01-07-2024 ambulatory MARY OLGUIN Not Available Start: 12-18-2023 End: 12-18-2023 ambulatory ALBERTINA VAZQUEZ Not Available Start: 11-19-2023 End: 11-19-2023 ambulatory MARY OLGUIN Not Available Start: 10-23-2023 Clinisync Result Encounter Shaikh Jose ADAM Work Phone: [facility] Unsolicited Start: 10-23-2023 Clinisync Result Encounter Shaikh Jose ADAM Work Phone: [facility] Unsolicited Start: 10-22-2023 Orders Only Shaikh Jose ADAM Work Phone: [facility] Comment on above: Bilateral lower extr emity edema (Primary Dx) Start: 10-15-2023 End: 10-15-2023 Office outpatient visit 25 minutes Shaikh Jose ADAM Work Phone: [facility] Comment on above: Bilateral lower extr emity edema (Primary Dx); Screening for hyperlipidemia; Screening for diabetes mellitus; Autoimmune hepatitis treated with steroids (CMS/HCC) Start: 10-15-2023 End: 10-15-2023 ambulatory SHAIKH JOSE Not Available Start: 10-15-2023 Cee flowsheet Shaikh Jose ADAM Work Phone: [facility] Start: 10-15-2023 Bamboo flowsheet Shaikh Jose ADAM Work Phone: [facility] Start: 10-15-2023 Clinisync Result Encounter Shaikh Jose ADAM Work Phone: [facility] Unsolicited Start: 09-25-2023 End: 09-25-2023 ambulatory BREE BENITEZ Not Available Start: 08-31-2023 End: 08-31-2023 ambulatory YARELIS KING Not Available Start: 08-27-2023 End: 08-27-2023 ambulatory Viral Lewis MD Facility:[facility] Start: 05-05-2023 End: 05-05-2023 ambulatory Faina Miller Other [place] [employer] Other Start: 05-05-2023 Telephone encounter Faina Miller [facility] [address] Start: 04-30-2023 End: 04-30-2023 Departed Referred CLINICAL SYSTEMS EDUCATOR Faina Miller Work Phone: [facility] [place] Work Phone: Start: 04-30-2023 End: 04-30-2023 ambulatory Faina Miller [facility] [employer] Other Start: 04-30-2023 Office outpatient visit 15 minutes Faina Miller [facility] Start: 11-05-2022 End: 11-06-2022 ambulatory SHAIKH Vivian GARCIA Facility: Start: 10-14-2022 Encounter for genera l adult medical examination without abnormal findings DR VIRAL LEWIS [facility] Start: 10-10-2022 End: 10-11-[address] VIRAL LEWIS Facility:[facility] Start: 10-10-2022 End: 10-11-2022 Encounter for general adult medical examination without abnormal findings DR VIRAL LEWIS Facility:[facility] Start: 09-03-2022 End: 09-03-2022 ambulatory Nir Zamarripa Other [employer] Other Start: 09-03-2022 Telephone encounter Nir vogel [facility] Start: 09-01-2022 End: 09-01-2022 ambulatory Viral Lewis Facility:[facility] Start: 09-01-2022 End: 09-01-2022 Patient encounter procedure MD Viral Lewis Work Phone: [facility] [place] Start: 09-01-2022 End: 09-01-2022 ambulatory MD Viral Lewis Work Phone: [facility] Work Phone: Start: 09-01-2022 Telephone encounter Nir vogel [facility] Start: 01-20-2022 End: 01-21-2022 ambulatory BOWERS Vivian JOSE Facility:[facility] Start: 12-16-2021 End: 12-16-2021 ambulatory Nir Zamarripa Other [employer] Other Start: 12-16-2021 Patient encounter procedure Nir Zamarripa [facility] Start: 10-23-2021 End: 10-23-2021 ambulatory Ellie Kemp Other [employer] Other Start: 10-23-2021 Office outpatient visit 15 minutes Ellie Kemp [facility] Start: 10-21-2021 End: 10-21-2021 ambulatory Nir Zamarripa Other [employer] Other Start: 10-21-2021 Telephone encounter Nir vogel [facility] Start: 10-11-2021 End: 10-11-2021 ambulatory Nir Zamarripa Other [employer] Other Start: 10-11-2021 Telephone encounter Nir Valdez ck [facility] Start: 09-24-2021 End: 09-24-2021 ambulatory Nir Zamarripa Other [employer] Other Start: 09-24-2021 Office outpatient visit 15 minutes Nir Zamarripa [facility] Start: 02-14-2020 Patient encounter procedure Elian Buczek [facility] [address] [employer] Work Phone: Start: 10-03-2019 Patient encounter procedure Elian Buczek VL[facility] [address] [employer] Work Phone: Start: 05-04-2018 Patient encounter procedure Elian Buczek CN[facility] [address] Work Phone: Start: 03-05-2018 Patient encounter procedure Elian Buczek K[facility] [address] [employer] Work Phone: Procedures Date Procedure Procedure Detail Performing Clinician Start: 07-04-2024 GENITOURINARY INFECT ION (HTRX) Dallin Claudio HEAD OF CYTOGENETICS Work Phone: Start: 07-04-2024 Urnls dip stick/tabl et rgnt auto w/o microscopy Aramis Goodson DO Work Phone: Start: 01-18-2024 Mammography Dallin white HEAD OF CYTOGENETICS Work Phone: Start: 10-23-2023 TBH D-DIMER Shaikh Efrain crowell MD Work Phone: Start: 10-15-2023 ALL CBC WITH AUTO DIFF Shaikh Jose ADAM Work Phone: Start: 01-13-2023 Mammography Shaikh Efrain crowell MD Work Phone: Start: 03-20-2020 Follow-up visit Start: 02-14-2020 Follow-up visit Start: 10-03-2019 Follow-up visit Plan of Treatment Date Care Activity Detail Author Start: 04-17-2027 Screening for malignant neoplasm of colon [facility] Start: 02-16-2025 ambulatory Ambulatory Facility:Lukas encarnacionVeronikarose mary ulisses [facility] Start: 01-17-2025 Screening for malignant neoplasm of breast Mammogram [facility] Start: 01-14-2024 Screening for malignant neoplasm of breast Mammogram [facility] Start: 10-15-2023 End: 10-15-2023 Patient encounter procedure 10/15/2023 2:45 PM EST Office Visit [facility] [address] [place] [id number] Shaikh Garcia MD [address] [place] [id number] Arrived [facility] Comment on above: Arrived Start: 10-15-2023 End: 10-15-2024 CBC W Auto Differential panel - Blood CBC and differential Lab Routine Bilateral lower extremity edema Autoimmune hepatitis treated with steroids (CMS/HCC) Expected: 10/15/2023 (Approximate), Expires: 10/15/2024 [facility] Comment on above: Expected: 10/15/2023 (Approximate), Expires: 10/15/2024 Start: 10-15-2023 End: 10-15-2024 Comprehensive metabolic 2000 panel - Serum or Plasma Comprehensive metabolic panel Lab Routine Bilateral lower extremity edema Autoimmune hepatitis treated with steroids (CMS/HCC) Expected: 10/15/2023 (Approximate), Expires: 10/15/2024 [facility] Comment on above: Expected: 10/15/2023 (Approximate), Expires: 10/15/2024 Start: 10-15-2023 End: 10-15-2024 Creatinine [Mass/volume] in Urine Creatinine, urine, random Lab Routine Bilateral lower extremity edema Expected: 10/15/2023 (Approximate), Expires: 10/15/2024 [facility] Comment on above: Expected: 10/15/2023 (Approximate), Expires: 10/15/2024 Start: 10-15-2023 End: 10-15-2024 Hemoglobin A1c measurement Hemoglobin A1c Lab Routine Screening for diabetes mellitus Expected: 10/15/2023 (Approximate), Expires: 10/15/2024 [facility] Comment on above: Expected: 10/15/2023 (Approximate), Expires: 10/15/2024 Start: 10-15-2023 End: 10-15-2024 Lipid 1996 panel - Serum or Plasma Lipid panel Lab Routine Screening for hyperlipidemia Expected: 10/15/2023 (Approximate), Expires: 10/15/2024 [facility] Comment on above: Expected: 10/15/2023 (Approximate), Expires: 10/15/2024 Start: 10-15-2023 End: 10-15-2024 Protein, urine, random Protein, urine, random Lab Routine Bilateral lower extremity edema Expected: 10/15/2023 (Approximate), Expires: 10/15/2024 [facility] Comment on above: Expected: 10/15/2023 (Approximate), Expires: 10/15/2024 Start: 10-15-2023 End: 10-15-2024 Vascular US lower extremity venous insufficiency bilateral Vascular US lower extremity venous insufficiency bilateral Imaging Routine Bilateral lower extremity edema Expected: 10/15/2023, Expires: 10/15/2024 [facility] Work Phone: Comment on above: Expected: 10/15/2023 , Expires: 10/15/2024 Start: 04-30-2023 [facility] Start: 2007 Screening for malignant neoplasm of cervix [facility] Start: 1998 Screening for malignant neoplasm of cervix Pap Smear [facility] Start: 1977 Screening for malignant neoplasm of colon [facility] Actin smooth muscle IgG Ab [Units/volume] in Serum [facility] Work Phone: Atopobium vaginae DN A [Presence] in Vaginal fluid by ABRAHAN with probe detection [facility] Bacterial vaginosis associated bacterium 2 DNA [Presence] in Vaginal fluid by ABRAHAN with probe detection [facility] GENITO/STI GENITO/STI Lab R outine Dysuria Ordered: 07/04/2024 [facility] Work Phone: Comment on above: Ordered: 07/04/2024 Homogenous nuclear A b pattern [Titer] in Serum [facility] Work Phone: Megasphaera sp type 1 DNA [Presence] in Vaginal fluid by ABRAHAN with probe detection [facility] Nuclear Ab [Titer] i n Serum [facility] Work Phone: CW-Jpjcoqnaa-Gx agri n [facility] [address] [employer] Work Phone: NEGATED: Highlighted row has been ruled out! Planned Goals not documented KV-Ecjgkdqgr-Zjglsy n [facility] [address] Work Phone: Immunizations Immunization Date Immunization Notes Care Provider [facility] 04-24-2023 Influenza, injectabl e, Madin [employer] Canine Kidney, preservative free, quadrivalent Shaikh Jose ADAM Work Phone: [facility] 03-09-2023 tetanus toxoid, redu chris diphtheria toxoid, and acellular pertussis vaccine, adsorbed Shaikh Jose ADAM Work Phone: [facility] 05-05-1983 diphtheria, tetanus toxoids and acellular pertussis vaccine Shaikh Jose ADAM Work Phone: [facility] 05-05-1983 poliovirus vaccine, inactivated Shaikh Jose ADAM Work Phone: [facility] 06-26-1979 diphtheria, tetanus toxoids and acellular pertussis vaccine Shaikh Jose ADAM Work Phone: [facility] 06-26-1979 poliovirus vaccine, inactivated Shaikh Jose ADAM Work Phone: [facility] 04-15-1979 measles, mumps and rubella virus vaccine Shaikh Jose ADAM Work Phone: [facility] 07-14-1978 diphtheria, tetanus toxoids and acellular pertussis vaccine Shaikh Jose ADAM Work Phone: [facility] 07-14-1978 poliovirus vaccine, inactivated Shaikh Jose ADAM Work Phone: [facility] 05-07-1978 diphtheria, tetanus toxoids and acellular pertussis vaccine Shaikh Jose ADAM Work Phone: [facility] 05-07-1978 poliovirus vaccine, inactivated Shaikh Jose ADAM Work Phone: [facility] 02-26-1978 diphtheria, tetanus toxoids and acellular pertussis vaccine Shaikh Jose ADAM Work Phone: [facility] 02-26-1978 poliovirus vaccine, inactivated Shaikh Jose ADAM Work Phone: [facility] Healthcare Payers Date Payer Category Payer Self-pay [id number] 2021 [facility] [id number] 2021 Unknown [id number]. [id number] .[id number] 1977 Unknown [id number] 2.16.840.1.406654.3.579.2 .593 1977 Unknown [id number] 2.16.840.1.862065.3.579.2 .593 1977 Unknown [id number] 2.16.840.1.494937.3.579.2 .593 1977 Unknown [id number] 2.16.840.1.100203.3.579.2 .9 1977 Unknown [id number] 2.16.840.1.340368.3.579.2 .1258 1977 Unknown [id number] 2.16.840.1.253157.3.579.2 .1258 1977 Unknown [id number] 2.16840.1.986846.3.579.2 .1258 1977 Unknown [id number] 2.16.840.1.212987.3.579.2 .1258 1977 Unknown [id number] 2.16840.1.992495.3.579.2 .1258 1977 Unknown [id number] 2.16840.1.088316.3.579.2 .1258 1977 Unknown [id number] 2.840.1.622348.3.579.2 .1258 1977 Unknown [id number] 2.16840.1.387158.3.579.2 .1258 1977 Unknown [id number] 2.16840.1.807345.3.579.2 .1258 1977 Unknown [id number] 2.16840.1.934263.3.579.2 .1258 1977 Unknown [id number] 2.16840.1.045495.3.579.2 .1258 1977 Unknown [id number] 2.16840.1.147915.3.579.2 .1977 Unknown [id number] 2.16840.1.604353.3.579.2 .1977 Unknown [id number] 2.16840.1.985417.3.579.2 .1977 Unknown [id number] 2.16840.1.459180.3.579.2 .1977 Unknown [id number] 2.16840.1.365397.3.579.2 .196 1977 Unknown [id number] 2.16.840.1.440102.3.579.2 .196 1977 Unknown [id number] 2.16.840.1.965664.3.579.2 .196 1977 Unknown [id number] 2.16.840.1.513989.3.579.2 .196 1977 Unknown [id number] 2.16.840.1.832139.3.579.2 .196 1959 [facility] CBKAN [id number] 2.16.840.1.121412.19 Unknown [id number] 2.16.840.1.839695.3.579.2 .531 Unknown [id number] 2.16.840.1.000299.3.579.2 .531 Social History Date Type Detail Facility Start: 09-25-2023 End: 03-02-2024 Sex Assigned At [employer] Other Start: 07-19-2019 End: 03-02-2024 Tobacco smoking status NHIS Never smoked tobacco (finding) [facility] Start: 1975 Sex Assigned At Female [facility] Start: 04-07-2023 End: 03-02-2024 Tobacco use and exposure Smokeless tobacco non-user [facility] Start: 09-25-2023 End: 07-04-2024 Alcohol intake Lifetime non-drinker (finding) [facility] Start: 09-25-2023 End: 03-02-2024 History of Social function [facility] Start: 05-08-2023 Alcohol Comment Caffeine: soda [facility] Start: 1975 Sex Assigned At Not on file [facility] NEGATED: Highlighted row - - [facility] [address] [employer] Work Phone: NEGATED: Highlighted rowStart: NINF History of tobacco use Passive smoker [facility] Functional Status Date Assessment Result Facility NEGATED: Highlighted row Functional performance Functional status health issues are not documented Disease [facility] [address] [employer] Work Phone: Mental Status Date Assessment Result Facility NEGATED: Highlighted row Cognitive function [Interpretation] Cognitive status health issues are not documented Disease [facility] [address] [employer] Work Phone: Clinical Notes 09-24-2021 to 07-18-2024 Dallin Claudio NP - 07/04/2024 2:40 PM Corinna Garcia MD - 10/15/2023 5:13 PM Nikolay Garcia MD - 10/15/2023 5:12 PM Nikolay Garcia MD - 10/15/2023 5:12 PM EST Note Date & Type Note Facility 07-18-2024 Note Patient Education Ma caren Name: Trudy Wilder Current Date: 07/18/2024 12:57:13 [facility] : 1975 The following sheet(s) are the Patient Education Leaflets for 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 They also help prevent future vaginal infections. Keeping a healthy balance Factors that change the normal balance in the vagina can lead to a vaginal infection. To help keep the balance normal, try these tips: ?Change out of wet bathing suits and damp exercise clothes as soon as possible. Yeast thrive in a warm, moist environment. ?Don't wear tight pants. Choose cotton underwear and stockings that have a cotton crotch. Cotton keeps you cooler and clothes drier assembler than synthetics. ?Don't douche unless advised by your healthcare provider. Douching can destroy friendly bacteria and change the vagina's normal balance. ?Wipe from front to back after using the toilet. This prevents bacteria from spreading from the anus to the vulva. ?Wash the vulva with mild, unscented soap or with plain water. ?Wash your diaphragm, spermicide applicators, and sex toys with mild soap and water after use. Dry them thoroughly before putting them away. ?Change tampons often (every 2 hours?to 4 hours). Leaving a tampon in for too long may disrupt the balance of vaginal bacteria. ?Don't use vaginal sprays, scented toilet paper and soaps, and deodorant tampons or pads. These can cause vaginal irritation. Staying healthy overall Good overall health can help you resist infection. To be healthier: ?Help protect yourself from STIs (sexually transmitted infections) by using latex condoms during sex. Ask your healthcare provider for more information about safer sex. ?Eat a variety of healthy foods. ?Exercise regularly. ?Get enough rest and sleep. ?Stay at a healthy weight. If you need to lose weight, ask your provider for advice on how to start. ? [id number] [employer]. All rights reserved. This information is not intended as a substitute for professional medical care. Always follow your healthcare professional's instructions. [facility] 07-04-2024 History of Present illness Narrative HPI: Historian of HPI: patient Trudy Wilder is a 48 y.o. female who presents today to the Urgent Care with the following complaints and denials which have been present for 5 day(s) Pt states I did a urine test and I had plus 1 for white blood cells. Pt is requesting STI swabs for STI only not urine send out. Last time that told me I had a bacteria and it caused me issues. C/O Denies Symptom Comments [x] [] Vaginal discharge [x] [] Vaginal itching [x] [] dysuria [] [x] fever [] [x] Abd pain [] [x] hematuria [] [x] Urinary urgency [] [x] Urinary frequency [] [x] Urinary incontinence ROS: A complete system ROS was performed and negative aside from the pertinent positives noted in the HPI and PE. Examination General Examination: General Examination: alert, orients, normal affect, well appearing, in no acute distress, well developed, well nourished Head: normocephalic, atraumatic Eyes: sclera non-icteric Neck/Thyroid: no carotid bruit Skin: no rashes Heart: no murmurs, regular rate and rhythm, S1, S2 normal Lungs: clear to auscultation bilaterally Female : increased erythema to vulva area. Clear/white discharge (may be from recent use of metronidazole gel). Bottler Helper present. No odor. No lesions or ulcers Extremities: no edema, no cyanosis Neurologic: nonfocal Psych: alert, oriented, cognitive function intact, cooperative with exam 1. Dysuria Discussed. See below. - URINALYSIS ANALYZER TEST - GENITO/STI 2. Acute vaginitis (Primary) Diagnosis and treatment discussed. Rest and push fluids. Medication instructions and potential s/e discussed. To ER for fever, chills, nausea, vomiting, or severe back/abd pain. Follow-up with PCP if no improvement in 3 days. Discussed urinalysis results. Vaginal swab sent for culture. Will call with results when available - metroNIDAZOLE (Flagyl) 500 MG tablet; Take 1 tablet (500 mg) by mouth every 12 (twelve) hours for 7 days Dispense: 14 tablet; Refill: 0 - fluconazole (Diflucan) 150 MG tablet; Take 1 tablet (150 mg) by mouth 1 (one) time for 1 dose Dispense: 1 tablet; Refill: 0 documented in this encounter [facility] 02-10-2024 Note Patient Education Ma terials Name: Trudy Wilder Current Date: 02/10/2024 08:55:52 [facility] : 1975 The following sheet(s) are the Patient Education Leaflets for Trudy Wilder Oncology Breast Health: Breast Self-Awareness What is breast self-awareness? Breast self-awareness is knowing how your breasts normally look and feel. Your breasts change as you go through different stages of your life. So it?s important to learn what is normal for your breasts. Knowing about your breasts helps you spot any changes in them right away. Tell your healthcare provider about any changes. Why is breast self-awareness important? Many experts now say that women should focus on breast self-awareness instead of doing a breast self-examination (BSE). These experts include the [employer] and the [place] [employer]. Some experts even advise not teaching women to do a BSE. That?s because research hasn?t shown a clear benefit to doing BSEs. Breast self-awareness is different than a BSE. It isn?t about following a certain method and schedule. It?s about knowing what's normal for your breasts. That way you can spot even small changes right away. If you see any changes, tell your healthcare provider. Changes to look for Call your healthcare provider if you find any changes in your breasts that worry you. These changes may be: ?A lump ?Nipple discharge other than breastmilk, especially if it's bloody ?Swelling ?A change in size or shape ?Skin changes, such as redness, thickening, or dimpling of the skin ?Swollen lymph nodes in the armpit ?Nipple problems, such as pain or redness If you find a lump Call your provider if you find lumpiness in one breast. Also call if you feel something different in the tissue or feel a definite lump. Sometimes lumpiness may be due to menstrual changes. But there may be reason for concern. Your provider may want to see you right away if you have: ?Nipple discharge that is bloody ?Skin changes on your breast, such as dimpling or puckering It?s okay to be upset if you find a lump. Be sure to call your provider right away. Remember that most breast lumps are benign. This means they are not cancer. ? [id number] [employer]. [address] [place] [address]. All rights reserved. This information is not intended as a substitute for professional medical care. Always follow your healthcare professional's instructions. Urology Kegel Exercises Kegel exercises don?t need special clothing or equipment. They?re easy to learn and simple to do. And if you do them right, no one can tell you?re doing them, so they can be done almost anywhere. Your healthcare provider, nurse, or physical therapist can answer any questions you have and help you get started. A weak pelvic floor The pelvic floor muscles may weaken due to aging, and vaginal childbirth, injury, surgery, chronic cough, or lack of exercise. If the pelvic floor is weak, your bladder and other pelvic organs may sag out of place. The urethra may also open too easily and allow urine to leak out. Kegel exercises can help you strengthen your pelvic floor muscles. Then they can better support the pelvic organs and control urine flow. How Kegel exercises are done Try each of the Kegel exercises described below. When you?re doing them, try not to move your leg, buttock, or stomach muscles: ?Contract as if you were stopping your urine stream. But do it when you?re not urinating. ?Tighten your rectum as if trying not to pass gas. Contract your anus, but don?t move your buttocks. ?You may place a finger or 2 in the vagina and squeeze your finger with your vagina to learn which muscles to tighten. Try to hold each Kegel for a slow count to 5. You probably won?t be able to hold them for that long at first. But keep practicing. It will get easier as your pelvic floor gets stronger. Eventually, special weights that you place in your vagina may be recommended to help make your Kegels even more effective. Visit your healthcare provider if you have difficulties doing Kegel exercises. Helpful hints Here are some tips to follow: ?Do your Kegels as often as you can. The more you do them, the faster you?ll feel the results. ?Pick an activity you do often as a reminder. For instance, do your Kegels every time you sit down. ?Tighten your pelvic floor before you sneeze, get up from a chair, cough, laugh, or lift. This protects your pelvic floor from injury and can help prevent urine leakage. ? [id number] [employer]. [address] [place] [address]. All rights reserved. This information is not intended as a substitute for professional medical care. Always follow your healthcare professional's instructions. [facility] 10-15-2023 History of Present illness Narrative Associated Problem(s): Screening for diabetes [...] improve, for Recheck. documented in this encounter [facility] 04-30-2023 Evaluation note Encounter Date [...] reaction. 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 Immediate eval if abdominal pain, fever, chills, body aches, back/flank pain, nausea, urinary complaints. Avoid douching and sexual activity at this time. Patient verbalizes understanding and is agreeable to treatment plan. [facility] Other 12-19-2022 Evaluation note* Encounter Date Diagnosis Assessment Notes Treatment Notes Treatment Clinical Notes Aug, Hepatitis, autoimmune (ICD-10 - K75.4) [facility] Other 04-04-2022 Evaluation note* Encounter Date Diagnosis [...] - R10.9) PATIENT DOES EXPERIENCE THIS DISCOMFORT. [facility] Other 02-09-2022 Evaluation note* Encounter Date Diagnosis [...] days. Oct, Vaginal irritation (ICD-10 - N89.8) [facility] Other 02-07-2022 Evaluation note* Encounter Date Diagnosis Assessment Notes Treatment Notes Treatment Clinical Notes Oct, Dysphagia (ICD-10 - R13.10) [facility] Other 01-28-2022 Evaluation note* Encounter Date Diagnosis Assessment Notes Treatment Notes Treatment Clinical Notes Sep, Hepatitis, autoimmune (ICD-10 - K75.4) Sep, Vomiting (ICD-10 - R11.10) Sep, Fatigue (ICD-10 - R53.83) [facility] Other 01-11-2022 Evaluation note* Encounter Date Diagnosis [...] K20.0) RESTART THE SINGULAIR AND COMPLETE FMLA [facility] [employer] Other Chief complaint+Reason for visit Narrative* Chief Complaint [place] Reason for Visit Dietary surveillance and counseling Exercise counseling Obesity, Class II, BMI 35-39.9 [facility] Work Phone: Evaluation noteNo assessment information available [facility] Work Phone: Evaluation [facility]No [facility] Other Evaluation note* Diagnosis Bilateral lower extremity edema- Primary Screening for hyperlipidemia Screening for lipoid disorders Screening for diabetes mellitus Autoimmune hepatitis treated with steroids (CMS/HCC) [facility] Diagnosis Bilateral lower extremity edema- Primary [facility] Diagnosis Onset Date Resolution Status Dietary surveillance and counseling acute Exercise counseling acute Obesity, Class II, BMI 35-39.9 acute [facility] Work Phone: Evaluation note* Diagnosis Class 2 obesity due to excess calories without serious comorbidity with body mass index (BMI) of 37.0 to 37.9 in adult- Primary Pharyngitis, unspecified etiology Bilateral lower extremity edema- Primary Screening for hyperlipidemia Screening for lipoid disorders Screening for diabetes mellitus Autoimmune hepatitis treated with steroids (CMS/HCC) Annual physical exam- Primary Routine general medical examination at a health care facility Colon cancer screening Special screening for malignant neoplasms, colon Acute vaginitis- Primary Unspecified vaginitis and vulvovaginitis Dysuria documented [facility] this [facility] [...] Surgical History hysterectomy Hospitalization History see above [facility] Other History general Narrative - Reported* Type [...] Surgical History hysterectomy Hospitalization History see above [facility] Other Family History No Family History Records [...] of malignant neoplasm of prostate(V16.42, Z80.42) Status:Active Relationship Condition Age at Onset Recorded Date/T buffy father History of stroke Unknown Depression Unknown Heart disease Unknown Diabetes mellitus Unknown Hypertension Unknown Not Specified Fibromyalgia Unknown Neuropathy Unknown sister Hypertension Unknown Asthma Unknown daughter Asthma Unknown Chronic sinus complaints Unknown Summary Purpose Advance Directives No Advanced Directives [...] insufficiency bilateral Shaikh Garcia MD [address] [place] [address] [facility] [employer] [address] [place] [address] Phone: [phone] Referral ID Status Reason Start Date Expiration Date V isits Requested Visits Authorized [id number] Authorized 10/15/2023 04/12/2024 1 1 Additional Source Comments INFORMATION SOURCE (unrecogn ized section and content) DATE CREATED AUTHOR 04/06/2020 [facility] DATE CREATED AUTHOR AUTHOR'S ORGANIZ ATION 04/06/2020 [employer] DATE CREATED AUTHOR AUTHOR'S ORGANIZ ATION 11/09/2022 [facility] DATE CREATED AUTHOR AUTHOR'S ORGANIZ ATION 05/09/2023 [facility] DATE CREATED AUTHOR AUTHOR'S ORGANIZ ATION 07/06/2024 [facility] DATE CREATED AUTHOR AUTHOR'S ORGANIZ ATION 07/26/2024 [facility] REASON FOR VISIT (unrecogniz ed section and [...] Dates Faina Miller APRN Attending Provider Active D[employer] Up Person Relationship Specialty Start Date End Date Viral Lewis MD [address] [place] [id number] PCP - General Family Medicine 10/15/23 [employer] Up Person Relationship Specialty Start Date End Date Viral Lewis MD [address] [place] [phone] PCP - General Family Medicine 10/15/23 [employer] Up Person Relationship Specialty Start Date End Date Viral Lewis MD [address] [place] [phone] PCP - General Family Medicine 10/15/23 D[employer] Up Person Relationship Specialty Start Date End Date Viral Lewis MD [address] [place] [phone] PCP - General Family Medicine 10/15/23 D[employer] Up Person Relationship Specialty Start Date End Date Viral Lewis MD [address] [place] [phone] PCP - General Family Medicine 10/15/23 Team Status: Inactive Member Role Status Dates Viral Lewis MD Primary Care Provider Active S tart: January 12, 2024 End: January 12, 2024 Arvind Jimenez DO Attending Provider Active St art: January 12, 2024 End: January 12, 2024 [employer] Up Person Relationship Specialty Start Date End Date Viral Lewis MD [address] [place] [phone] PCP - [facility] 10/15/23 Shaikh Garcia MD [address] [place] [phone] PCP [facility] 04/14/24 Dish Up Person Relationship Specialty Start Date End Date Viral Lewis MD [address] [place] [phone] PCP - [facility] 10/15/23 Shaikh Garcia MD [address] [place] [phone] PCP [facility] 04/14/24 Goals (unrecognized section and content) Goals may [...] BE BASED ON THE PRIMARY CLINICAL RECORDS. [facility]. provides no warranty or guarantee of the accuracy or completeness of information in this document.
[2024-07-28 21:07] VITALS: BP 155/94; PULSE 64; TEMP 36.7; O2SAT 100; BMI 35.4
--- NOTE | 2024-07-28 23:19 | ED_ITS ---
HPI HPI - General Adult General Chief complaint: Headache Stated complaint: Headache Time Seen by Provider: 07/28/24 21:29 Source: patient Mode of arrival: walk-in Limitations: no limitations History of Present Illness HPI narrative: 48-year-old female presents for headache. Its generalized and she has had it for 4 days and its like the headache she has had in the past. She states she u sually goes to her doctor and she gets a shot of Toradol but she could not get in for an appointment. No trauma fever or stiff neck. Related Data Previous Rx's ?Medication ?Instructions ?Recorded ketorolac 10 mg tablet 10 mg PO Q8H PRN pain 5 days #14 06/20/23 tabs ondansetron 4 mg disintegrating 4 mg PO Q6H PRN nausea and 06/20/23 tablet vomiting #20 tabs oxycodone-acetaminophen 5 mg-325 1 tab PO Q6H PRN pain #20 tabs 06/20/23 mg tablet (Percocet) Allergies Allergy/AdvReac Type Severity Reaction Status Date / Time doxycycline Allergy Unknown Vomiting Verified 07/28/24 21:13 Iodinated Contrast Media AdvReac Intermediate Palpitation Verified 07/28/24 21:13 s Opioid HPI Opioid Management Most Recent Opioid Data: Last Pain Scale 8 06/20/23 06:09 06/20/23 Review of Systems ROS Narrative A ten point review of systems is negative except as noted above. PFSH PFSH Social History Smoking status: Never smoker Exam Narrative Exam Narrative: Nurses note and vital signs reviewed and patient is not hypoxic. General: The patient appears well and in no apparent distress. Patient is resting comfortably on cart. Skin: Warm, dry, no pallor noted. There is no rash noted. Head: Normocephalic, atraumatic; neck supple, no nuchal rigidity Eye: Normal conjunctiva, no drainage, EOMI. PERRL Ears, Nose, Mouth, and Throat: oral mucosa is moist. Nares patent. Cardiovascular: Regular Rate and Rhythm Respiratory: Patient is in no distress, no accessory muscle use, lungs are clear to auscultation, no wheezing, rales or rhonchi Back: non-tender GI: Soft and nontender Musculoskeletal: The patient has no evidence of calf tenderness, no pitting edema, symmetrical pulses noted bilaterally Neurological: A&O, normal speech; upper and lower extremity strength 5 out of 5 and symmetric Psychiatric: Cooperative Constitutional Vital Signs, click to edit/add: Last Vital Signs Temp 98.1 F 07/28/24 21:07 Pulse 64 07/28/24 21:07 Resp 16 07/28/24 21:07 BP 155/94 H 07/28/24 21:07 Pulse Ox 100 07/28/24 21:07 O2 Del Method Room Air 07/28/24 21:07 Course Vital Signs Vital signs: Vital Signs Temperature 98.1 F 07/28/24 21:07 Pulse Rate 64 07/28/24 21:07 Respiratory Rate 16 07/28/24 21:07 Blood Pressure 155/94 H 07/28/24 21:07 Pulse Oximetry 100 07/28/24 21:07 Oxygen Delivery Method Room Air 07/28/24 21:07 Temperature 98.1 F 07/28/24 21:07 Pulse Rate 64 07/28/24 21:07 Respiratory Rate 16 07/28/24 21:07 Blood Pressure 155/94 H 07/28/24 21:07 Pulse Oximetry 100 07/28/24 21:07 Oxygen Delivery Method Room Air 07/28/24 21:07 Medical Decision Making MDM Narrative Medical decision making narrative: The patient was given IV Toradol, Solu-Medrol, and Zofran and feels improved and is able to be discharged home. I have no clinical suspicion of acute intracranial pathology. Differential Diagnosis Differential Diagnosis: Migraine headache, generalized headache, nonspecific headache Discharge Plan Discharge Chief Complaint: Headache Clinical Impression: Headache Patient Disposition: Home, Self-Care Time of Disposition Decision: 01:04 Condition: Good Mode of Transportation: Private Vehicle Prescriptions / Home Meds: No Action ketorolac 10 mg tablet 10 mg PO Q8H PRN (Reason: pain) 5 Days Qty: 14 0RF oxycodone-acetaminophen [Percocet] 5-325 mg tablet 1 tab PO Q6H PRN (Reason: pain) Qty: 20 0RF ondansetron 4 mg tablet,disintegrating 4 mg PO Q6H PRN (Reason: nausea and vomiting) Qty: 20 0RF Print Language: Singaporean Instructions: Acute Headache (ED) Referrals: Viral Loving MD [Primary Care Provider] - 1 week
[2024-07-29] MEDS: KETOROLAC TROMETHAMINE 30 MG/ML VIAL IVP (00:04)
[2024-07-29] MEDS: ONDANSETRON PF 4 MG/2 ML VIAL IV (00:05)
[2024-07-29] MEDS: METHYLPREDNISOLONE SOD SUCC PF 125 MG/2 ML VIAL IVP (00:05)
[2024-07-29 01:03] VITALS: BP 131/88; PULSE 61; O2SAT 97
== END 2024-07-29 01:07 | disposition home or self-care (01) ==
PROVIDERS: Emergency Provider Emergency Medicine; PCP Family Medicine
DX: R51.9 Headache, unspecified (principal)
CPT/HCPCS: 96374; 96375; 99284; J1885; J2405; J2919

== ENCOUNTER 2024-07-29 18:57 | Emergency (ER) | payer BC, SELFPAY ==
[2024-07-29 19:00] VITALS: BP 178/84; PULSE 104; O2SAT 99; BMI 35.4
--- OUTSIDE RECORDS SUMMARY | 2024-07-29 19:04 | XMS_ITS | CCD ---
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 Name Role Phone Elian Doherty Unavailable Unavailable Didier Beltrán Unavailable Unavailable Viral Lewis Unavailable Unavailable Nir Zamarripa Unavailable [phone] Ellie Kemp Unavailable MD Viral Lewis Primary Care Provider [phone] MD Nir Zamarripa Attending Provider JOSE, BOWERS H Admitting Unavailable JOSE, BOWERS [...] Faina Miller Unavailable CRISSY Miller Attending Provider [phone] Viral Lewis Primary Care Unavailable Nir Zamarripa [...] Unavailable Jose ADAM, Unavailable Joshua ADAM, Viral [place] [facility] Unavail able Cris LYONC, Sendy Quigley Attending Love Lewis MD, [facility] Primary Care Unavail able Cris LYONC, Sendy Quigley Attending Unavai mark LYONC, Mavis Easley Attending Marry farrah Lewis MD, [facility] Primary Care Unavail able Joshua ADAM, [facility] Primary [facility] Unavail able Kodak LYONC, Mavis Easley Attending Marry vailable Cris LYONC, Sendy Quigley Attending Love Lewis MD, [facility] Unavail able Cris LYONC, Sendy Quigley Attending Love Lewis MD, [facility] Unavail able Cris GREER, Sendy Quigley Attending Love Lewis MD, [facility] Primary Care Unavail able Joshua ADAM, [facility] Primary [facility] Unavail able Kodak LYONC, Mavis Easley Attending Marry vailable [employer]ak LYONC, Mavis Easley Attending Marry farrah Lewis MD, [facility] Primary [facility] Unavail able Allergies Allergy Classification Reported Allergen(s) Allergy Type Date of Onset Reaction(s) Facility (20 sources) Doxycycline; Translations: [doxycycline] Drug Allergy 06-21-20 13 GI intolerance [facility] (4 sources) Promethazine; Translations: [Phenergan] Drug Allergy 06-21-[address] [facility] (2 sources) Sulfonamides (Antibiotic) Allergy to drug (finding) FK-[id number]-[id number] [facility] [address] [employer] Work Phone: (9 sources) Clarithromycin Drug Allergy Unknown [employer] Other (20 sources) Promethazine Drug Allergy 06-14-20 19 Seizures [facility] (9 sources) Sulfacetamide Drug Allergy Unknown [employer] Other (9 sources) cat scan contrast Propensity to adverse reactions Unknown [employer] Other (3 sources) Sulfonamides (Antibiotic); Translations: [Sulfa (Sulfonamide Antibiotics)] Allergy to substance 06-14-20 19 Rash [facility] (4 sources) Iodinated Contrast Media; Translations: [Iodinated Contrast Media] Allergy to substance 06-14-20 19 Difficulty Breathing [facility] (1 source) Sulfonamides (Antibiotic) Drug allergy (disorder) 06-21-[address] [facility] (1 source) topiramate Drug Allergy 06-21-[address] [facility] (1 source) Promethazine Drug Allergy 06-14-20 19 [facility] Repository (5 sources) Sulfonamides (Antibiotic) Drug Allergy 06-14-20 19 Hives, [facility] (1 source) Contrast media; Translations: [contrast media (iodine-based)] Propensity to adverse reactions to drug (disorder) [facility] Repository Medications Current Medications Medication Drug Class(es) [...] Start: 10-23-2021 take 4 tablets by mo [facility] once at mealtime metroNIDAZOLE 500 MG [...] DNAon 07-25-2024 Chlamydia, DNA Negative Normal Negative [facility] Comment on above: Result Comment: The APTIMA [...] to the clinician. Performed By: #### C D:[id number] #### [address] [address] Gonorrhea, DNA Negative Normal Negative [facility] Comment on above: Result Comment: The APTIMA [...] to the clinician. Performed By: #### C D:[id number] #### [address] [address] Ureaplasma species, PCR-Moneta on 07-25-2024 Specimen Source (URRP)-[place] Vaginal Normal [facility] Comment on above: Performed By: #### C D:[id number] #### [facility] [address] [place] [address] Ureaplasma parvum PCR-[place] Positive Abnormal Not Applicable [facility] Comment on above: Result Comment: ADDITIONAL INFORMATION This test was developed and its performance characteristics determined by [facility] in a manner consistent with CLIA requirements. This test has not been cleared or approved by the U.S. Food and Drug Administration. Test Performed by: [facility] [place] [place] [address] R Developer: Rudolph Garcia Ph.D.; CLIA# [id number] Performed By: #### Lulu D:[id number] #### [address] [address] Ureaplasma urealyticum PCR-[place] Negative Normal Not Applicable [facility] Comment on above: Performed By: #### Lulu D:[id number] #### [address] [address] Mycoplasma hominis, PCR-Moneta on 07-23-2024 Mycoplasma hominis PCR-[place] Negative Normal Not Applicable [facility] Comment on above: Result Comment: ADDITIONAL INFORMATION This test was developed and its performance characteristics determined by [facility] in a manner consistent with CLIA requirements. This test has not been cleared or approved by the U.S. Food and Drug Administration. 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 Comparison is made to exams dated: 12/27/2021 mammogram, 01/13/2023 mammogram, and 12/25/2020 mammogram - [facility]. The breasts are heterogeneously dense, which [...] may not be detected on mammograms. The [employer] supports annual screening mammography starting at age 40. Mandy Daly MD [facility]/joshua:02/15/2024 14:48:25 Independent Jeweler(s): RT Dre(R)(M)(CT), [facility] letter sent: New Mammo Normal B1/2 [...] Never Nutrition/Health (more content not included)... Normal [facility] OR Trackon 07-22-2024 Specimens Received From BV OB [place] Normal [facility] Comment on above: Performed By: #### C D:[id number] #### [facility] [employer] [address] [place], [place] [address] HSV1,2 Ql PCR,Swab-[facility] Herpes Source-[place] Not Reported [facility] Comment on above: Performed By: #### C D:[id number] #### [place] [address] HSV 1 PCR-Moneta SEE BELOW [facility] Comment on above: Result Comment: RESU LT: Test Not Performed Herpes Simplex Virus, PCR, Varies was cancelled on 07/21/2024 at 07:20; Per provider's request. Test Performed by: [facility] [place] [address] R Developer: Rudolph Garcia Ph.D.; CLIA# [id number] Performed By: #### C D:[id number] #### [address] [address] HSV 2 PCR-Moneta Not Reported [facility] Comment on above: Performed By: #### C D:[id number] #### [place] [address] Gynecology Office/Clinic Not ramila 07-19-2024 Gynecology Office/Clinic [...] testing and BV. She had testing in [place] and +Ureaplasma/mycoplasm a treated with Azithromycin approx 1 week ago. No bowel/bladder complaints. 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 [facility] OR Sqoot 07-19-2024 Specimens Received From BV OB [facility] Comment on above: Performed By: #### O utrea Tracking Order #### [facility] [address] [place] [address] Vaginal Panel DNAon 07-19-20 Bacterial Vaginosis Negative Normal Negative [facility] Comment on above: Performed By: #### C D:[id number] #### [facility] [address] [place] [address] Esthela glabrata/krusei Not detected Normal Not Detected [facility] Comment on above: Performed By: #### C D:[id number] #### [place] [address] [place] [address] Esthela group Not detected Normal Not Detected [facility] Comment on above: Performed By: #### C D:[id number] #### [address] [place] [address] Trichomonas vaginalis Not detected Normal Not Detected [facility] Comment on above: Performed By: #### C D:[id number] #### [address] [address] GENITOURINARY INFECTION (HTR X)on 07-06-2024 ACINETOBACTER BAUMANII 0 NO [facility] ACINETOBACTER BAUMANII Not detected [facility] ATOPOBIUM VAGINAE 0 [facility] ATOPOBIUM VAGINAE Not detected [facility],3 (BACTERIAL VAGINOSIS ASSOCIATED BACTERIA 2, 3); MOBILUNCUS SPP 0 [facility] BVAB 2,3 (BACTERIAL VAGINOSIS ASSOCIATED BACTERIA 2, [...] density] 1.005 [facility] Urobilinogen (U) [Mass/Vol] 0.826928 mg/dL [facility] Laboratory - Hematology and Cell countson 07-04-2024 Hemoglobin Ql (U) Trace [facility] Laboratory - Urinalysison Nitrite Ql (U) Negative [facility] Protein Ql (U) Negative [facility] No Panel Informationon 07-04 Interpretation and review of laboratory results Abnormal [facility] LEUKOCYTES Trace [facility] MG Mammogram Digital Screen Bilat + Tomoon 02-15-2024 MG Mammogram Digital Screen Bilat + Ravinder #[id number] - MG MAMMOGRAM DIGITAL SCREEN BILAT + RAVINDER BILATERAL DIGITAL SCREENING MAMMOGRAM 3D/2D WITH CAD: 02/11/2024 CLINICAL: Screening. Comparison is made to exams dated: 12/27/2021 mammogram, 01/13/2023 mammogram, and 12/25/2020 mammogram - [facility]. The breasts are heterogeneously dense, which [...] may not be detected on mammograms. [employer] supports annual screening mammography starting at age 40. Mandy albert/joshua:02/15/2024 14:48:25 Independent Jeweler(s): Mary Almanza, RT(R)(M)(CT), [facility] letter sent: New Mammo Normal B1/2 Mammogram BI-RADS: 2 Benign Final Dictated by: Mandy Daly MD Signed by: Mandy Daly MD Signed (Electronic Signature): 02/15/2024 2:48 pm (If Report Is Signed, Electronically Signed in Other Vendor System) Normal [facility] Gynecology Office/Clinic Not ramila 02-11-2024 Gynecology Office/Clinic [...] she is given. Patient will attempt these [id number] options currently. We also discussed the use [...] Patient is working full-time and going to [employer]. Review of Systems Head Headaches: [...] g, 1 Refill(s), 02/21/24 16:08:00 EDT, Pharmacy: [facility]/pharmacy #[id number] AMB Preventative EST patient; 40-64 years Orders: valACYclovir, 1 tabs, Oral, Daily, # 90 tabs, 3 Refill(s), Pharmacy: [facility]/pharmacy #[id number] MG Mammogram Digital Screen Bilat +Ravinder Medical Decision Making Chronic conditions NOT treated during this visit that affected my overall (more content not included)... [facility] Provider Letteron 02-11-2024 Provider Letter [facility] OB & Qa Auditor - [facility] [address] [place], [address] Date: 02/11/2024 3:41pm To Whom It May Concern: This is to verify that Trudy Wilder was under our care on 02/11/2024 at 3:30pm for an office visit. Please contact the office with any questions or concerns. Thank you, Cris GREER, Sendy Quigley [facility] D-DIMERon 10-23-2023 D DIMER 0.48 [facility] Comment on above: Increases in D-Dimer [...] WITH AUTO DIFFon BASOPHILS ABSOLUTE AUTO 0.1 [facility] Basophils/100 WBC (Bld) 0.7 % 0.2 - 2.0 % [facility] Eosinophils/100 WBC (Bld) 5.5 % 0.9 - 7.0 % [facility] Erythrocyte distribution width (RBC) [Ratio] 13.2 % 11.0 - 15.0 % [facility] Hematocrit (Bld) [Volume fraction] 40.8 % 36.0 - 48.0 % [facility] Hemoglobin (Bld) [Mass/Vol] 13.4 g/dL 12.0 - 16.0 g/dL [facility] IMMATURE GRANULOCYTES ABS AUTO 0.04 High [facility] Immature granulocytes/100 WBC (Bld) 0.4 % 0.0 - 0.5 % [facility] Interpretation and review of laboratory results Abnormal [facility] LYMPHOCYTES ABSOLUTE AUTO 2.7 [facility] Lymphocytes/100 WBC (Bld) 28.5 % 20.5 - 60.0 % [facility] MCH (RBC) [Entitic mass] 29.6 pg 26.7 - 34.0 pg [facility] MCHC (RBC) [Mass/Vol] 32.8 g/dL 29.9 - 35.2 g/dL [facility] MCV (RBC) [Entitic vol] 90.1 fL 81.0 - 99.0 fL [facility] MONOCYTES ABSOLUTE AUTO 0.6 [facility] Monocytes/100 WBC (Bld) 6.0 % 1.7 - 12.0 % [facility] NEUTROPHILS ABSOLUTE AUTO 5.6 [facility] Neutrophils/100 WBC (Bld) 58.9 % 43.0 - 75.0 % [facility] Platelet mean volume (Bld) [Entitic vol] 10.3 fL 9.5 - 13.5 fL [facility] TBH EO # 0.5 [facility] TB PLT [address] [facility] RBC 4.[address] [facility] WBC 9.5 [facility] Vaginitis Plus (VG+)on 04-30 Atopobium Vaginae High - 2 Critically abnormal . [facility] Comment on above: Order Comment: SOURC E OF SPECIMEN: VAG Performed By: #### V AGINITIS+ #### [facility] , BVAB2 Low - 0 Normal . [facility] Comment on above: Order Comment: SOURC E OF SPECIMEN: VAG Performed By: #### V AGINITIS+ #### [facility] , Esthela Albicans, ABRAHAN Negative Normal Negative [facility] Comment on above: Order Comment: SOURC E OF SPECIMEN: VAG Result Comment: This test was developed and its performance characteristics determined by [facility]. It has not been cleared or approved by the Food and Drug Administration. Performed By: #### V AGINITIS+ #### [facility] , Esthela Glabrata, ABRAHAN Negative Normal Negative [facility] Comment on above: Order Comment: SOURC E OF SPECIMEN: VAG Result Comment: This test was developed and its performance characteristics determined by [facility]. It has not been cleared or approved by the Food and Drug Administration. PERFORMED BY: [facility] [address] [place] [address] PATHOLOGIST ORGAN PIPE VOICER MADELINE EDGAR M.D. Performed By: #### V AGINITIS+ #### [facility] , Chlamydia Trachomotis, ABRAHAN Negative Normal Negative [facility] Comment on above: Order Comment: SOURC E OF SPECIMEN: VAG Performed By: #### V AGINITIS+ #### [facility] , Megasphaera Low - 0 Normal . [facility] Comment on above: Order Comment: SOURC [...] , Neisseria Gonorrhoeae, ABRAHAN Negative Normal Negative [facility] Comment on above: Order Comment: SOURC E OF SPECIMEN: VAG Result Comment: Perf ormed at: =G - [facility] [address] [place] [id number] R Developer: Rosie Martinez MD, Phone: [phone] Performed By: #### V AGINITIS+ #### [facility] , Tric Vag ABRAHAN Negative Normal Negative [facility] Comment on above: Order Comment: SOURC E OF SPECIMEN: VAG Performed By: #### V AGINITIS+ #### [facility] , LIPASEon 11-05-2022 Lipase [Catalytic activity/Vol] 97.0 U/L Normal 73.0-393.0 [facility] Comment on above: Performed By: #### C MP, LIPA #### [facility] [address] [place] [address] Dr. Ann Watson PROF 14(COMP METB)on 023 Albumin [Mass/Vol] 3.7 g/dL Normal 3.4-5.0 [facility] Comment on above: Performed By: #### C MP, LIPA #### [facility] [address] [place] [address] Dr. Ann Watson Albumin/Globulin [Mass ratio] 1.2 {ratio} Normal [facility] Comment on above: Performed By: #### C MP, LIPA #### [facility] [address] [place] [address] Dr. Ann Watson ALP [Catalytic activity/Vol] 87 U/L Normal 46-116 [facility] Comment on above: Performed By: #### C MP, LIPA #### [facility] [address] [place] [address] Dr. Ann Watson ALT [Catalytic activity/Vol] 14 U/L Normal 14-59 [facility] Comment on above: Performed By: #### C MP, LIPA #### [facility] [address] [place] [address] Dr. Ann Watson Anion gap [Moles/Vol] 7.6 mmol/L Normal [facility] Comment on above: Performed By: #### C MP, LIPA #### [facility] [address] [place] [address] [address] Ann Watson AST [Catalytic activity/Vol] 12 U/L Critically low 15-37 [facility] Comment on above: Performed By: #### C MP, LIPA #### [facility] [address] [place] [address] Dr. Ann Watson Bilirubin [Mass/Vol] 0.5 mg/dL Normal 0.2-1.0 [facility] Comment on above: Performed By: #### C MP, LIPA #### [facility] [address] [place] [address] Dr. Ann Watson Calcium [Mass/Vol] 9.0 mg/dL Normal 8.5-10.1 [facility] Comment on above: Performed By: #### C MP, LIPA #### [facility] [address] [place] [address] Dr. Ann Watson Chloride [Moles/Vol] 107 mmol/L Normal 98-107 [facility] Comment on above: Performed By: #### C MP, LIPA #### [facility] [address] [place] [address] Dr. Ann Watson CO2 [Moles/Vol] 27.6 mmol/L Normal 21.0-32.0 [facility] Comment on above: Performed By: #### C MP, LIPA #### [facility] [address] [place] [address] Dr. Ann Watson Creatinine [Mass/Vol] 0.59 mg/dL Normal 0.55-1.02 [facility] Comment on above: Performed By: #### C MP, LIPA #### [facility] [address] [place] [address] Dr. Ann Watson EGFR-AF GUATEMALAN >60 Normal >=60 [facility] Comment on above: Performed By: #### C MP, LIPA #### [facility] [address] [place] [address] Dr. Ann Watson EGFR-NON AF GUATEMALAN >60 Normal >=60 [facility] Comment on above: Performed By: #### C MP, LIPA #### [facility] [address] [place] [address] [address] Ann Watson Globulin (S) [Mass/Vol] 3.2 g/dL Normal [facility] Comment on above: Performed By: #### C MP, LIPA #### [facility] [address] [place] [address] Dr. Ann Watson Glucose [Mass/Vol] 89 mg/dL Normal 74-106 [facility] Comment on above: Performed By: #### C MP, LIPA #### [facility] [address] [place] [address] Dr. Ann Watson Potassium [Moles/Vol] 4.2 mmol/L Normal 3.5-5.[address] [facility] Comment on above: Performed By: #### C MP, LIPA #### [facility] [address] [place] [address] Dr. Ann Watson Protein [Mass/Vol] 6.9 g/dL Normal 6.4-8.2 [facility] Comment on above: Performed By: #### C MP, LIPA #### [facility] [address] [place] [address] Dr. Ann Watson Sodium [Moles/Vol] 138 mmol/L Normal 136-145 [facility] Comment on above: Performed By: #### C MP, LIPA #### [facility] [address] [place] [address] Dr. Ann Watson Urea nitrogen [Mass/Vol] 14.0 mg/dL Normal 7.0-18.0 [facility] Comment on above: Performed By: #### C MP, LIPA #### [facility] [address] [place] [address] Dr. Ann Watson Urea nitrogen/Creatinine [Mass ratio] 23.7 mg/mg Normal [facility] Comment on above: Performed By: #### C MP, LIPA #### [facility] [address] [place] [address] Dr. Ann Watson CBC AUTO DIFFon 10-10-2022 BASO # 0.0 103/ul Normal 0.0-0.1 [facility] Comment on above: Performed By: #### C BC #### [facility] [address] [place] [address] [address] Ann Watson Basophils/100 WBC (Bld) 0.5 % Normal 0.2-2.0 [facility] Comment on above: Performed By: #### C BC #### [facility] [address] [place] [address] [address] Ann Watson EO # 0.4 103/ul Normal 0.0-0.7 [facility] Comment on above: Performed By: #### C BC #### [facility] [address] [place] [address] Dr. Ann Watson Eosinophils/100 WBC (Bld) 7.4 % Critically high 0.9-7.0 [facility] Comment on above: Performed By: #### C BC #### [facility] [address] [place] [address] Dr. Ann Watson Erythrocyte distribution width (RBC) [Ratio] 12.4 % Normal 11.0-15.0 [facility] Comment on above: Performed By: #### C BC #### [facility] [address] [place] [address] Dr. Ann Watson Hematocrit (Bld) [Volume fraction] 46.5 % Normal 36.0-48.0 [facility] Comment on above: Performed By: #### C BC #### [facility] [address] [place] [address] Dr. Ann Watson Hemoglobin (Bld) [Mass/Vol] 14.4 g/dL Normal 12.0-16.0 [facility] Comment on above: Performed By: #### C BC #### [facility] [address] [place] [address] Dr. Ann Watson IG # 0.02 10e3/ul Normal 0.00-0.[address] [facility] Comment on above: Performed By: #### C BC #### [facility] [address] [place] [address] Dr. Ann Watson IG % 0.4 % Normal 0.0-0.5 [facility] Comment on above: Performed By: #### C BC #### [facility] [address] [place] [address] Dr. Ann Watson LYMPH # 2.3 103/ul Normal 1.2-3.8 [facility] Comment on above: Performed By: #### C BC #### [facility] [address] [place] [address] Dr. Ann Watson Lymphocytes/100 WBC (Bld) 42.0 % Normal 20.5-60.0 [facility] Comment on above: Performed By: #### C BC #### [facility] [address] [place] [address] Dr. Ann Watson MANUAL DIFF REQ NO Normal [facility] Comment on above: Performed By: #### C BC #### [facility] [address] [place] [address] Dr. Ann Watson [facility] (RBC) [Entitic mass] 30.0 pg Normal 26.7-34.0 [facility] Comment on above: Performed By: #### C BC #### [facility] [address] [place] [address] Dr. Ann Watson MCHC (RBC) [Mass/Vol] 31.0 g/dL Normal 29.9-35.2 [facility] Comment on above: Performed By: #### C BC #### [facility] [address] [place] [address] Dr. Ann Watson MCV (RBC) [Entitic vol] 96.9 fL Normal 81.0-99.0 [facility] Comment on above: Performed By: #### C BC #### [facility] [address] [place] [address] Dr. Ann Watson MONO # 0.3 103/ul Normal 0.3-0.[address] [facility] Comment on above: Performed By: #### C BC #### [facility] [address] [place] [address] Dr. Ann Watson Monocytes/100 WBC (Bld) 5.8 % Normal 1.7-12.0 [facility] Comment on above: Performed By: #### C BC #### [facility] [address] [place] [address] Dr. Ann Watson NEUT # 2.4 103/ul Normal 1.4-6.5 [facility] Comment on above: Performed By: #### C BC #### [facility] [address] [place] [address] Dr. Ann Watson Neutrophils/100 WBC (Bld) 43.9 % Normal 43.0-75.0 [facility] Comment on above: Performed By: #### C BC #### [facility] [address] [place] [address] Dr. Ann Watson Platelet mean volume (Bld) [Entitic vol] 10.9 fL Normal 9.5-13.5 [facility] Comment on above: Performed By: #### C BC #### [facility] [address] [place] [address] Dr. Ann Watson PLT 267 103/ul Normal 150-[address] [facility] Comment on above: Performed By: #### C BC #### [facility] [address] [place] [address] Dr. Ann Watson RBC 4.80 106/ul Normal 4.20-5.40 [facility] Comment on above: Performed By: #### C BC #### [facility] [address] [place] [address] Dr. Ann Watson WBC 5.5 103/ul Normal 4.0-11.0 [facility] Comment on above: Performed By: #### C BC #### [facility] [address] [place] [address] Dr. Ann Watson FREE T3on 10-10-2022 FREE T3 2.38 pg/mlL Normal 2.18-3.98 [facility] Comment on above: Performed By: #### F T3, TSH, LIPID, BMP #### [facility] [address] [place] [address] Dr. Ann Watson FREE T4on 10-10-2022 Free T4 [Mass/Vol] 0.84 ng/dL Normal 0.76-1.46 [facility] Comment on above: Performed By: #### F T4 #### [facility] [address] [address] [address] Ann Watson GLYCOHEMOGLOBIN A1Con 2022 ADA RECOMMENDATION SEE BELOW Normal [facility] Comment on above: Result Comment: ADA RECOMMENDED LIMIT 4.0 - 6.0 ADA THERAPEUTIC TARGET < 7.0 ACTION SUGGESTED > 7.0 Performed By: #### A 1C #### [facility] [address] [address] [address] Ann Watson Glucose [Mass/Vol] 91 mg/dL Normal [facility] Comment on above: Performed By: #### A 1C #### [facility] [address] [place] [address] Dr. Ann Watson HbA1c (Bld) [Mass fraction] 4.8 % Normal 4.5-6.2 [facility] Comment on above: Performed By: #### A 1C #### [facility] [address] [place] [address] Dr. Ann Watson LIPID PROFILEon 10-10-2022 CHOL-HDL RATIO NORM SEE BELOW Normal [facility] Comment on above: Result Comment: 3.3 - 4.4 LOW RISK 4.4 - 7.1 AVERAGE RISK 7.1 - 11.0 MODERATE RISK >11.0 HIGH RISK Performed By: #### F T3, TSH, LIPID, BMP #### [facility] [address] [place] [address] Dr. Ann Watson Cholesterol [Mass/Vol] 169 mg/dL Normal <=200 [facility] Comment on above: Performed By: #### F T3, TSH, LIPID, BMP #### [facility] [address] [place] [address] Dr. Ann Watson Cholesterol in HDL [Mass/Vol] 52 mg/dL Normal 40-60 [facility] Comment on above: Performed By: #### F T3, TSH, LIPID, BMP #### [facility] [address] [address] [address] Ann Watson Cholesterol in LDL [Mass/Vol] 99.4 mg/dL Normal [facility] Comment on above: Performed By: #### F T3, TSH, LIPID, BMP #### [facility] [address] [address] [address] Ann Watson Cholesterol.total/Chol esterol in HDL [Mass ratio] 3.3 {ratio} Normal [facility] Comment on above: Performed By: #### F T3, TSH, LIPID, BMP #### [facility] [address] [address] [address] Ann Watson HDL NORMAL > or = 60 mg/dl - LO W CARDIOVASCULAR RISK <40 mg/dl - HIGH CARDIOVASCULAR RISK Normal [facility] Comment on above: Performed By: #### F T3, TSH, LIPID, BMP #### [facility] [address] [address] [address] Ann Watson LDL CALC NORMAL SEE BELOW Normal [facility] Comment on above: Result Comment: <100 mg/dl OPTIMAL 100 - 129 mg/dl NEAR OR ABOVE OPTIMAL 130 - 159 mg/dl BORDERLINE HIGH 160 - 189 mg/dl HIGH >190 mg/dl VERY HIGH Performed By: #### F T3, TSH, LIPID, BMP #### [facility] [address] [address] [address] Ann Watson Triglyceride [Mass/Vol] 88 mg/dL Normal <=150 [facility] Comment on above: Performed By: #### F T3, TSH, LIPID, BMP #### [facility] [address] [address] [address] Ann Watson VLDL CALC 17.6 mg/dL Normal [facility] Comment on above: Performed By: #### F T3, TSH, LIPID, BMP #### [facility] [address] [address] [address] Ann Watson PROF CHEM 8 (BAS METB)on Anion gap [Moles/Vol] 11.5 mmol/L Normal [facility] Comment on above: Performed By: #### F T3, TSH, LIPID, BMP #### [facility] [address] [address] [address] Ann Watson Calcium [Mass/Vol] 8.7 mg/dL Normal 8.5-10.1 [facility] Comment on above: Performed By: #### F T3, TSH, LIPID, BMP #### [facility] [address] [address] [address] Ann Watson Chloride [Moles/Vol] 106 mmol/L Normal 98-107 [facility] Comment on above: Performed By: #### F T3, TSH, LIPID, BMP #### [facility] [address] [address] [address] Ann Watson CO2 [Moles/Vol] 27.3 mmol/L Normal 21.0-32.0 [facility] Comment on above: Performed By: #### F T3, TSH, LIPID, BMP #### [facility] [address] [address] [address] Ann Watson Creatinine [Mass/Vol] 0.57 mg/dL Normal 0.55-1.02 [facility] Comment on above: Performed By: #### F T3, TSH, LIPID, BMP #### [facility] [address] [address] [address] Ann Watson EGFR-AF GUATEMALAN >60 Normal >=60 [facility] Comment on above: Performed By: #### F T3, TSH, LIPID, BMP #### [facility] [address] [place] [address] Dr. Ann Watson EGFR-NON AF GUATEMALAN >60 Normal >=60 [facility] Comment on above: Performed By: #### F T3, TSH, LIPID, BMP #### [facility] [address] [address] [address] Ann Watson Glucose [Mass/Vol] 85 mg/dL Normal 74-106 [facility] Comment on above: Performed By: #### F T3, TSH, LIPID, BMP #### [facility] [address] [address] [address] Ann Watson Potassium [Moles/Vol] 3.8 mmol/L Normal 3.5-5.1 [facility] Comment on above: Performed By: #### F T3, TSH, LIPID, BMP #### [facility] [address] [address] [address] Ann Watson Sodium [Moles/Vol] 141 mmol/L Normal 136-145 [facility] Comment on above: Performed By: #### F T3, TSH, LIPID, BMP #### [facility] [address] [address] [address] Ann Watson Urea nitrogen [Mass/Vol] 12.0 mg/dL Normal 7.0-18.0 [facility] Comment on above: Performed By: #### F T3, TSH, LIPID, BMP #### [facility] [address] [address] [address] Ann Watson Urea nitrogen/Creatinine [Mass ratio] 21.1 mg/mg Normal [facility] Comment on above: Performed By: #### F T3, TSH, LIPID, BMP #### [facility] [address] [address] [address] Ann Watson TSHon 10-10-2022 TSH 3.064 uIU/mL Normal 0.358-3.740 [facility] Comment on above: Performed By: #### F T3, TSH, LIPID, BMP #### [facility] [address] [address] [address] Ann Watson JERRY Antinuclear Antibodieson 09-01-2022 Antinuclear Abs, IFA Positive Critically abnormal . [facility] Comment on above: Order Comment: Reaso n for Exam Hepatitis, autoimmune Result Comment: Nega tive <1:80 Borderline 1:80 Positive >1:80 Performed By: #### S MAB, JERRY #### [facility] , #### CMP, CBC #### [facility] [address] Note 1 Normal . [facility] Comment on above: Order Comment: Reaso [...] titers Nucleosomes, Histones Drug-induced SLE Speckled Sm, OPERATIONS DISPATCHER, SCL-70, SLE,MCTD,PSS (diffuse form), SS-A/SS-B Sjogrens Nucleolar SCL-70, PM-1/SCL High titers Scleroderma, PM/DM Centromere Centromere PSS (limited form) w/Crest syndrome variable Nuclear Dot [id number] Primary Biliary Cirrhosis Nuclear GP210, Primary Biliary Cirrhosis Membrane cory A,B,C Performed at: [facility] [address] [id number] R Developer: Cyrus Abbott PhD, Phone: [phone] Performed By: #### S MAB, JERRY #### [facility] , #### CMP, CBC #### [facility] [address] [place] [address] Speckled Pattern 1:80 Normal . [facility] Comment on above: Order Comment: Reaso n for Exam Hepatitis, autoimmune Result Comment: ICAP nomenclature: [id number] Performed By: #### S MAB, JERRY #### [facility] , #### CMP, CBC #### [facility] [address] [place] [address] [place] Basophils Auto (Bld) [#/Vol] Ordered By: Nir Zamarripa on 09-01-2022 Basophils (Bld) [#/Vol] 0.1 10*3/uL 0.0-0.2 [facility] Basophils/100 WBC Auto (Bld) Ordered By: Nir Zamarripa on 09-01-2022 Basophils/100 WBC (Bld) 0.7 % . [facility] Body fluid albumin measureme nt (mass/volume)Ordered By: Nir Zamarripa on 09-01-2022 Albumin (Body fld) [Mass/Vol] 3.7 g/dL 3.2-5.5 [facility] Complete Blood Count Auto Di ffon 09-01-2022 Basophils (Bld) [#/Vol] 0.1 10*3/uL Normal 0.0-0.2 [facility] Comment on above: Order Comment: Reaso n for Exam Hepatitis, autoimmune Result Comment: PERF ORMED BY: [place] [address] PATHOLOGIST [employer] VOICER MADELINE EDGAR M.D. Performed By: #### S MAB, JERRY #### [facility] , #### CMP, CBC #### [address] Basophils/100 WBC (Bld) 0.7 % Normal . [facility] Comment on above: Order Comment: Reaso n for Exam Hepatitis, autoimmune Performed By: #### S MAB, JERRY #### [facility] , #### CMP, CBC #### [address] Eosinophils (Bld) [#/Vol] 0.5 10*3/uL High 0.0-0.45 [facility] Comment on above: Order Comment: Reaso n for Exam Hepatitis, autoimmune Performed By: #### S MAB, JERRY #### [facility] , #### CMP, CBC #### [address] Eosinophils/100 WBC (Bld) 7.2 % Normal . [facility] Comment on above: Order Comment: Reaso n for Exam Hepatitis, autoimmune Performed By: #### S MAB, JERRY #### [facility] , #### CMP, CBC #### [address] Erythrocyte distribution width (RBC) [Ratio] 13.7 % Normal 11.9-15.3 [facility] Comment on above: Order Comment: Reaso n for Exam Hepatitis, autoimmune Performed By: #### S MAB, JERRY #### [facility] , #### CMP, CBC #### [address] Hematocrit (Bld) [Volume fraction] 40.3 % Normal 34.0-46.4 [facility] Comment on above: Order Comment: Reaso n for Exam Hepatitis, autoimmune Performed By: #### S MAB, JERRY #### [facility] , #### CMP, CBC #### [address] Hemoglobin (Bld) [Mass/Vol] 13.5 g/dL Normal 11.8-15.4 [facility] Comment on above: Order Comment: Reaso n for Exam Hepatitis, autoimmune Performed By: #### S MAB, JERRY #### [facility] , #### CMP, CBC #### [address] Lymphocytes (Bld) [#/Vol] 2.4 10*3/uL Normal 1.00-4.8 [facility] Comment on above: Order Comment: Reaso n for Exam Hepatitis, autoimmune Performed By: #### S MAB, JERRY #### [facility] , #### CMP, CBC #### [address] Lymphocytes/100 WBC (Bld) 33.3 % Normal . [facility] Comment on above: Order Comment: Reaso n for Exam Hepatitis, autoimmune Performed By: #### S MAB, JERRY #### [facility] , #### CMP, CBC #### [address] MCH (RBC) [Entitic mass] 30.2 pg Normal 24.7-34.3 [facility] Comment on above: Order Comment: Reaso n for Exam Hepatitis, autoimmune Performed By: #### S MAB, JERRY #### [facility] , #### CMP, CBC #### [address] MCV (RBC) [Entitic vol] 90.6 fL Normal 80-100 [facility] Comment on above: Order Comment: Reaso n for Exam Hepatitis, autoimmune Performed By: #### S MAB, JERRY #### [facility] , #### CMP, CBC #### [address] Mean Corpuscular HGB Conc 33.4 g/dL Normal 32.0-35.0 [facility] Comment on above: Order Comment: Reaso n for Exam Hepatitis, autoimmune Performed By: #### S MAB, JERRY #### [facility] , #### CMP, CBC #### [place] [address] [place] Monocytes (Bld) [#/Vol] 0.5 10*3/uL Normal 0.0-0.8 [facility] Comment on above: Order Comment: Reaso n for Exam Hepatitis, autoimmune Performed By: #### S MAB, JERRY #### [facility] , #### CMP, CBC #### [place] [address] [place] Monocytes/100 WBC (Bld) 6.5 % Normal . [facility] Comment on above: Order Comment: Reaso n for Exam Hepatitis, autoimmune Performed By: #### S MAB, JERRY #### [facility] , #### CMP, CBC #### [place] [address] [place] Neutrophils (Bld) [#/Vol] 3.8 10*3/uL Normal 1.8-7.7 [facility] Comment on above: Order Comment: Reaso n for Exam Hepatitis, autoimmune Performed By: #### S MAB, JERRY #### [facility] , #### CMP, CBC #### [place] [address] [place] Neutrophils/100 WBC (Bld) 52.3 % Normal . [facility] Comment on above: Order Comment: Reaso n for Exam Hepatitis, autoimmune Performed By: #### S MAB, JERRY #### [facility] , #### CMP, CBC #### [facility] [address] [place] [address] [place] NRBC% 0.1 /100{WBC} Normal 0-0.5 [facility] Comment on above: Order Comment: Reaso n for Exam Hepatitis, autoimmune Performed By: #### S MAB, JERRY #### [facility] , #### CMP, CBC #### [address] Platelet mean volume (Bld) [Entitic vol] 8.5 fL Normal 6.3-10.7 [facility] Comment on above: Order Comment: Reaso n for Exam Hepatitis, autoimmune Performed By: #### S MAB, JERRY #### [facility] , #### CMP, CBC #### [address] Platelets (Bld) [#/Vol] 270 10*3/uL Normal 150-450 [facility] Comment on above: Order Comment: Reaso n for Exam Hepatitis, autoimmune Performed By: #### S MAB, JERRY #### [facility] , #### CMP, CBC #### [address] RBC (Bld) [#/Vol] 4.45 10*6/uL Normal 3.60-5.00 [facility] Comment on above: Order Comment: Reaso n for Exam Hepatitis, autoimmune Performed By: #### S MAB, JERRY #### [facility] , #### CMP, CBC #### [address] WBC (Bld) [#/Vol] 7.3 10*3/uL Normal 3.8-11.6 [facility] Comment on above: Order Comment: Reaso n for Exam Hepatitis, autoimmune Performed By: #### S MAB, JERRY #### [facility] , #### CMP, CBC #### [place] [address] [place] Basophils (Bld) [#/Vol] 0.036602062 10*3/uL Normal 0.0-0.2 10*3/uL [employer] Other Basophils/100 WBC (Bld) 0.700 % . % [employer] Other Eosinophils (Bld) [#/Vol] 0.264861838 10*3/uL High 0.0-0.45 10*3/uL [employer] Other Eosinophils/100 WBC (Bld) 7.200 % . % [employer] Other Erythrocyte distribution width (RBC) [Ratio] 13.700 % Normal 11.9-15.3 % [employer] Other Hematocrit (Bld) [Volume fraction] 40.300 % Normal 34.0-46.4 % [employer] Other Hemoglobin (Bld) [Mass/Vol] 13.657180 g/dL Normal 11.8-15.4 g/dL [employer] Other Lymphocytes (Bld) [#/Vol] 2.295571129 10*3/uL Normal 1.00-4.8 10*3/uL [employer] Other Lymphocytes/100 WBC (Bld) 33.300 % . % [employer] Other MCH (RBC) [Entitic mass] 30.2000 pg Normal 24.7-34.3 pg [employer] Other MCV (RBC) [Entitic vol] 90.6000 fL Normal 80-100 fL [employer] Other Monocytes (Bld) [#/Vol] 0.050390205 10*3/uL Normal 0.0-0.8 10*3/uL [facility] Other Monocytes/100 WBC (Bld) 6.500 % . % [employer] Other Neutrophils (Bld) [#/Vol] 3.442595560 10*3/uL Normal 1.8-7.7 10*3/uL [employer] Other Neutrophils/100 WBC (Bld) 52.300 % . % [employer] Other Platelet mean volume (Bld) [Entitic vol] 8.5000 fL Normal 6.3-10.7 fL [employer] Other WBC (Bld) [#/Vol] 7.860854357 10*3/uL Normal 3.8 -11.6 10*3/uL [facility] Other Complete Blood Count Auto Diff 7.3 10*3/uL Normal 3.8-11.6 10*3/uL [facility] Other Complete Blood Count Auto Diff 33.4 g/dL Normal 32.0-35.0 g/dL [place] [employer] Other Complete Blood Count Auto Diff 0.1 /100{WBC} Normal 0-0.5 /100{WBC} [facility] [employer] Other [facility] 09-01-2022 Albumin [Mass/Vol] 3.7 g/dL Normal 3.2-5.5 [facility] Comment on above: Order Comment: Reaso n for Exam Hepatitis, autoimmune Performed By: #### S MAB, JERRY #### [facility] , #### CMP, CBC #### [facility] [address] [place] [address] Albumin/Globulin [Mass ratio] 1.7 {ratio} Normal [facility] Comment on above: Order Comment: Reaso n for Exam Hepatitis, autoimmune Performed By: #### S MAB, JERRY #### [facility] , #### CMP, CBC #### [facility] [address] [place] [address] ALP [Catalytic activity/Vol] 64 U/L Normal 32-92 [facility] Comment on above: Order Comment: Reaso n for Exam Hepatitis, autoimmune Result Comment: PERF ORMED BY: [place] [address] PATHOLOGIST [employer] VOICER MADELINE EDGAR M.D. Performed By: #### S MAB, JERRY #### [facility] , #### CMP, CBC #### [facility] [address] ALT [Catalytic activity/Vol] 14 U/L Normal 10-60 [employer] Other Comment on above: Order Comment: Reaso n for Exam Hepatitis, autoimmune Performed By: #### S MAB, JERRY #### [facility] , #### CMP, CBC #### [facility] [address] Anion gap [Moles/Vol] 8.5 mmol/L Normal 6.0-15.0 [facility] Comment on above: Order Comment: Reaso n for Exam Hepatitis, autoimmune Performed By: #### S MAB, JERRY #### [facility] , #### CMP, CBC #### [address] AST [Catalytic activity/Vol] 16 U/L Normal 10-42 [facility] Comment on above: Order Comment: Reaso n for Exam Hepatitis, autoimmune Performed By: #### S MAB, JERRY #### [facility] , #### CMP, CBC #### [facility] [address] [place] [address] [place] Bilirubin [Mass/Vol] 0.5 mg/dL Normal 0.3-1.2 [facility] Comment on above: Order Comment: Reaso n for Exam Hepatitis, autoimmune Performed By: #### S MAB, JERRY #### [facility] , #### CMP, CBC #### [facility] [address] [place] [address] [place] Calcium [Mass/Vol] 9.1 mg/dL Normal 8.2-10.2 [facility] Comment on above: Order Comment: Reaso n for Exam Hepatitis, autoimmune Performed By: #### S MAB, JERRY #### [facility] , #### CMP, CBC #### [facility] [address] [place] [address] [place] Chloride [Moles/Vol] 106 mmol/L Normal 95-114 [facility] Comment on above: Order Comment: Reaso n for Exam Hepatitis, autoimmune Performed By: #### S MAB, JERRY #### [facility] , #### CMP, CBC #### [facility] [address] [place] [address] CO2 [Moles/Vol] 24.6 mmol/L Normal 22.0-30.0 [facility] Comment on above: Order Comment: Reaso n for Exam Hepatitis, autoimmune Performed By: #### S MAB, JERRY #### [facility] , #### CMP, CBC #### [facility] [address] [place] [address] Creatinine [Mass/Vol] 0.64 mg/dL Normal 0.44-1.03 [facility] Comment on above: Order Comment: Reaso n for Exam Hepatitis, autoimmune Performed By: #### S MAB, JERRY #### [facility] , #### CMP, CBC #### [facility] [address] [place] [address] Estimated GFR ( Amalia > 60 [facility] Comment on above: Order Comment: Reaso n for Exam Hepatitis, autoimmune Result Comment: GFR estimated reference range: According to KDOQI guidelines, <60 ml/min/1.73m2 is sufficient to diagnose a patient with chronic kidney disease. Performed By: #### S MAB, JERRY #### [facility] , #### CMP, CBC #### [facility] [address] [place] [address] Estimated GFR (Non- Am > 60 [facility] Comment on above: Order Comment: Reaso n for Exam Hepatitis, autoimmune Performed By: #### S MAB, JERRY #### [facility] , #### CMP, CBC #### [facility] [address] [place] [address] [place] Globulin (S) [Mass/Vol] 2.2 g/dL [facility] Comment on above: Order Comment: Reaso n for Exam Hepatitis, autoimmune Performed By: #### S MAB, JERRY #### [facility] , #### CMP, CBC #### [address] Glucose [Mass/Vol] 80 mg/dL Normal 70-100 [facility] Comment on above: Order Comment: Reaso n for Exam Hepatitis, autoimmune Result Comment: [facility] Glucose Reference Range is dependent on time and content of last meal. Glucose of more than 200 mg/dL in a nonstressed, ambulatory subject supports the diagnosis of Diabetes Mellitus. ADA recommended reference range Performed By: #### S MAB, JERRY #### [facility] , #### CMP, CBC #### [address] Potassium [Moles/Vol] 4.1 mmol/L Normal 3.5-5.1 [facility] Comment on above: Order Comment: Reaso n for Exam Hepatitis, autoimmune Performed By: #### S MAB, JERRY #### [facility] , #### CMP, CBC #### [place] [address] [place] Protein [Mass/Vol] 5.9 g/dL Low 6.1-7.9 [facility] Comment on above: Order Comment: Reaso n for Exam Hepatitis, autoimmune Performed By: #### S MAB, JERRY #### [facility] , #### CMP, CBC #### [facility] [address] [place] [address] [place] Sodium [Moles/Vol] 135 mmol/L Low 136-146 [facility] Comment on above: Order Comment: Reaso n for Exam Hepatitis, autoimmune Performed By: #### S MAB, JERRY #### [facility] , #### CMP, CBC #### [place] [address] [place] Urea nitrogen [Mass/Vol] 9 mg/dL Normal 9-23 [facility] Comment on above: Order Comment: Reaso n for Exam Hepatitis, autoimmune Performed By: #### S MAB, JERRY #### [facility] , #### CMP, CBC #### [facility] [address] Albumin [Mass/Vol] 3.064671 g/dL Normal 3.2-5.5 g/dL [facility] [employer] Other Bilirubin [Mass/Vol] 0.8352209 mg/dL Normal 0.3- 1.2 mg/dL [employer] Other Calcium [Mass/Vol] 9.5048583 mg/dL Normal 8.2-10 .2 mg/dL [employer] Other CO2 [Moles/Vol] 24.34933481 mmol/L Normal 22.0-3 0.0 mmol/L [employer] Other Creatinine [Mass/Vol] 0.20067068 mg/dL Normal 0. 44-1.03 mg/dL [employer] Other Potassium [Moles/Vol] 4.13523029 mmol/L Normal 3 .5-5.1 mmol/L [employer] Other Protein [Mass/Vol] 5.483162 g/dL Low 6.1-7.9 g/dL N [employer] Other Comprehensive Metabolic Panel > 60 [employer] Other Comprehensive Metabolic Panel 2.2 g/dL [employer] Other Creatinine and Glomerular fi ltration rate.predicted panel (S/P/Bld)Ordered By: Nir Zamarripa on 09-01-2022 Creatinine [Mass/Vol] 0.64 mg/dL 0.44-1.03 [facility] Eosinophils Auto (Bld) [#/Vo l]Ordered By: Nir Zamarripa on 09-01-2022 Eosinophils (Bld) [#/Vol] 0.5 10*3/uL 0.0-0.45 [facility] Eosinophils/100 WBC Auto (Bl d)Ordered By: Nir Zamarripa on 09-01-2022 Eosinophils/100 WBC (Bld) 7.2 % . [facility] Erythrocyte distribution wid th Auto (RBC) [Ratio]Ordered By: Nir Zamarripa on 09-01-2022 Erythrocyte distribution width (RBC) [Ratio] 13.7 % 11.9-15.3 [facility] Erythrocytes [#/volume] in B lood by Automated countOrdered By: Nir Zamarripa on 09-01-2022 RBC (Bld) [#/Vol] 4.45 10*6/uL Normal 3.60-5.00 [facility] Estimated glomerular filtrat ion rate (GFR) non- AmericanOrdered By: Nir Zamarripa on 09-01-2022 GFR/1.73 sq M.predicted among non-blacks MDRD (S/P/Bld) [Vol rate/Area] > 60 mL/Min [facility] Globulin Calc (S) [Mass/Vol] Ordered By: Nir Zamarripa on 09-01-2022 Globulin (S) [Mass/Vol] 2.2 g/dL [facility] Hematocrit Auto (Bld) [Volum e fraction]Ordered By: Nir Zamarripa on 09-01-2022 Hematocrit (Bld) [Volume fraction] 40.3 % 34.0-46.4 [facility] Hemoglobin [Mass/volume] in BloodOrdered By: Nir Zamarripa on 09-01-2022 Hemoglobin (Bld) [Mass/Vol] 13.5 g/dL 11.8-15.4 [facility] Leukocytes [#/volume] correc kofi for nucleated erythrocytes in Blood by Automated counOrdered By: Nir Zamarripa on 09-01-2022 WBC corrected for nucl RBC Auto (Bld) [#/Vol] 7.3 10*3/uL 3.8-11.6 [facility] Lymphocytes Auto (Bld) [#/Vo l]Ordered By: Nir Zamarripa on 09-01-2022 Lymphocytes (Bld) [#/Vol] 2.4 10*3/uL 1.00-4.8 [facility] Lymphocytes/100 WBC Auto (Bl d)Ordered By: Nir Zamarripa on 09-01-2022 Lymphocytes/100 WBC (Bld) 33.3 % . [facility] MCH Auto (RBC) [Entitic mass ]Ordered By: Nir Zamarripa on 09-01-2022 MCH (RBC) [Entitic mass] 30.2 pg 24.7-34.3 [facility] MCHC Auto (RBC) [Mass/Vol]Or dered By: Nir Zamarripa on 09-01-2022 MCHC (RBC) [Mass/Vol] 33.4 g/dL 32.0-35.0 [facility] MCV Auto (RBC) [Entitic vol] Ordered By: Nir Zamarripa on 09-01-2022 MCV (RBC) [Entitic vol] 90.6 fL 80-100 [facility] Monocytes Auto (Bld) [#/Vol] Ordered By: Nir Zamarripa on 09-01-2022 Monocytes (Bld) [#/Vol] 0.5 10*3/uL 0.0-0.8 [facility] Monocytes/100 WBC Auto (Bld) Ordered By: Nir Zamarripa on 09-01-2022 Monocytes/100 WBC (Bld) 6.5 % . [facility] Neutrophils Auto (Bld) [#/Vo l]Ordered By: Nir Zamarripa on 09-01-2022 Neutrophils (Bld) [#/Vol] 3.8 10*3/uL 1.8-7.7 [facility] Neutrophils/100 WBC Auto (Bl d)Ordered By: Nir Zamarripa on 09-01-2022 Neutrophils/100 WBC (Bld) 52.3 % . [facility] No Panel InformationOrdered By: Nir Zamarripa on 09-01-2022 Estimated GFR () > 60 mL/Min [facility] Comment on above: GFR estimated refere nce range: According to KDOQI guidelines, <60 ml/min/1.73m2 is sufficient to diagnose a patient with chronic kidney disease. Pharmacy Creatinine Clearance (Chem N/A [facility] Nucleated erythrocytes [Pres ence] in Blood by Automated countOrdered By: Nir Zamarripa on 09-01-2022 Nucleated RBC Auto Ql (Bld) 0.1 /100{WBC} 0-0.5 [facility] Platelet mean volume Auto (B ld) [Entitic vol]Ordered By: Nir Zamarripa on 09-01-2022 Platelet mean volume (Bld) [Entitic vol] 8.5 fL 6.3-10.7 [facility] Platelets [#/volume] in Bloo d by Automated countOrdered By: Nir Zamarripa on 09-01-2022 Platelets (Bld) [#/Vol] 270 10*3/uL Normal 150-450 10*3/uL [facility] Protein [Mass/volume] in Ser um or PlasmaOrdered By: Nir Zamarripa on 09-01-2022 Protein [Mass/Vol] 5.9 g/dL 6.1-7.9 [facility] Serum or plasma alanine martines otransferase measurement without P-5'-P (enzymatic activiOrdered By: Nir Zamarripa on 09-01-2022 ALT No additional P-5'-P [Catalytic activity/Vol] 14 U/L 10-60 [facility] Serum or plasma albumin/glob ulin mass ratioOrdered By: Nir Zamarripa on 09-01-2022 Albumin/Globulin [Mass ratio] 1.7 {ratio} [facility] Serum or plasma alkaline jessica sphatase measurement (enzymatic activity/volume)Ordered By: Nir Zamarripa on 09-01-2022 ALP [Catalytic activity/Vol] 64 U/L Normal 32-92 U/L [facility] Serum or plasma anion gap de terminationOrdered By: Nir Zamarripa on 09-01-2022 Anion gap [Moles/Vol] 8.5 mmol/L 6.0-15.0 [facility] Serum or plasma aspartate am inotransferase measurement (enzymatic activity/volume)Ordered By: Nir Zamarripa on 09-01-2022 AST [Catalytic activity/Vol] 16 U/L Normal 10-42 U/L [facility] Serum or plasma calcium sven urement (mass/volume)Ordered By: Nir Zamarripa on 09-01-2022 Calcium [Mass/Vol] 9.1 mg/dL 8.2-10.2 [facility] Serum or plasma chloride capri surement (moles/volume)Ordered By: Nir Zamarripa on 09-01-2022 Chloride [Moles/Vol] 106 mmol/L Normal 95-114 mmol/L [facility] Serum or plasma glucose sven urement (mass/volume)Ordered By: Nir Zamarripa on 09-01-2022 Glucose [Mass/Vol] 80 mg/dL Normal 70-100 mg/dL [facility] Comment on above: ADA recommended refe rence rangeRandom Glucose Reference Range is dependent on time and content of last meal. Glucose of more than 200 mg/dL in a nonstressed, ambulatory subject supports the diagnosis of Diabetes Mellitus. Serum or plasma potassium me asurement (moles/volume)Ordered By: Nir Zamarripa on 09-01-2022 Potassium [Moles/Vol] 4.1 mmol/L 3.5-5.1 [facility] Serum or plasma sodium measu rement (moles/volume)Ordered By: Nir Zamarripa on 09-01-2022 Sodium [Moles/Vol] 135 mmol/L Low 136-146 mmol/L [facility] Serum or plasma total biliru bin measurement (mass/volume)Ordered By: Nir Zamarripa on 09-01-2022 Bilirubin [Mass/Vol] 0.5 mg/dL 0.3-1.2 [facility] Serum or plasma total carbon dioxide measurement (moles/volume)Ordered By: Nir Zamarripa on 09-01-2022 CO2 [Moles/Vol] 24.6 mmol/L 22.0-30.0 [facility] Serum or plasma urea nitroge n measurement (mass/volume)Ordered By: Nir Zamarripa on 09-01-2022 Urea nitrogen [Mass/Vol] 9 mg/dL Normal 9-23 mg/dL [facility] Smooth Muscle Antibodyon Smooth Muscle Antibody 17 Normal 0-19 [facility] Comment on above: Order Comment: Reaso n for Exam Hepatitis, autoimmune Result Comment: Nega tive 0 - 19 Weak positive 20 - 30 Moderate to strong positive >30 Actin Antibodies are found in 52-85% of patients with autoimmune hepatitis or chronic active hepatitis and in 22% of patients with primary biliary cirrhosis. Performed at: [address] [id number] R Developer: Cyrus Abbott PhD, Phone: [phone] PERFORMED BY: [place] [address] PATHOLOGIST ORGAN PIPE VOICER MADELINE EDGAR M.D. Performed By: #### S MAB, JERRY #### [facility] , #### CMP, CBC #### [address] Smooth Muscle Antibody 17 0-19 No rth [facility] Other WBC Auto (Bld) [#/Vol]Ordere d By: Nir Zamarripa on 09-01-2022 WBC (Bld) [#/Vol] 7.3 10*3/uL 3.8-11.6 [facility] XR CHEST 2 Von 01-20-2022 XR [...] by: SALOMÓN CERVANTES Date: 2022-01-20 12:59 Normal [facility] Discharge Planning [id number] 0 10-30-2019 Discharge Planning Note2 Discharge Planning: Anticipated Discharge [id number] Assessment: Discharge Planning Assessment [id number] Stated Reason for Admissionseizures(1) [place] ([place]) Lives Withsignificant other; adult child(kristofer)(1) Living Arrangementslucan(1) Resource/Environmenta l Concernsnone(1) Anticipated Transition [place](1) Services Anticipated at Transitionnon(1) Nursing Checklist: Lines/Cathetersremove d/appropriate for next level of care Discharge Med Rec Reconciled with eMARonna Patient has Prescriptionsno prescriptions needed DME equipment orderedN/A Transportation for Discharge Confirmedyes Follow up Reviewedyes Discharge Instructions Reviewed WithPatient and Family Member Discharge Instructions Outcomeverbalize recall/understanding County InvolvementN/A Discharge Instructions Review Completed with Patient/Family (diet, activity, pt instructions)yes Discharge Documentation: Discharge/Transfer Date/[id number] 13:32 Discharge Modeambulatory Discharged Accompanied Byfamily member Transportation Methodprivate car Valuables/Medications /Belongings Returnedyes Security Envelope ReturnedN/A Final DispositionHome Electronic Signatures: Purnima Pritchett (RASHAUN) (Signed 30-Oct-2019 13:33) Authored: Discharge Planning Note2 Last Updated: 30-Oct-2019 13:33 by Purnima Pritchett (RASHAUN) References: 1. Data Referenced From Patient Profile - Adult v2 28-Oct-2019 10:36 Normal [facility] Discharge [id number] Discharge Profile2 Discharge Orders: Anticipated Discharge Date: Anticipated Discharge [id number] Hospital Providers: Provider RoleProvider Name Amberly Fay [...] Clinic Call to Schedule in4 weeks Scheduled Date/[id number]-[id number] 16:30 CommentsOrder received after discharge Electronic Signatures: Virgil Xie ( (Resident)) (Signed 30-Oct-2019 12:16) Authored: Discharge Orders, Epilepsy/Seizure, Hospital Course (Home Care/Gold Form), Provider FINAL REVIEW of Orders, Appointments, Gold Form - 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 Overnight Events: Patient had an uneventful night. Objective Data: Objective Information: T PRBPSpO2 [id number]/7898 % Date/Time10/29 8:152 8:152 8:152 8:152 8:15 [...] the note. I personally evaluated the patient [id number] Electronic Signatures: Amberly Pressley) (Signed 10-Nov-2019 15:05) Authored: Signature/Cosignature /Attestation Co-Signer: Service, Subjective Data, Objective Data, Assessment and Plan, Signature/Cosignature /Attestation Liane Charles (Fellow)) (Signed 29-Oct-2019 16:37) Authored: Service, Subjective Data, Objective Data, Assessment and Plan, Signature/Cosignature /Attestation Last Updated: 10-Nov-2019 15:05 by Amberly Pressley) Normal [facility] Admission Risk Screen - Adul ton 10-28-2019 Admission Risk Screen - Adult Allergies: Allergies: Phenergan: Unknown doxycycline: Unknown sulfa drugs: Unknown contrast (specific type unknown): Unknown Patient Verification: New W ID Band Applied in my Departmentno Type of ID Patient is WearingW wristband, but not applied here Patient Transferred from Other Facility ([facility], [facility],etc)no Patient Identity Verified Bypatient [...] risk with low risk for associated injury [place] Safety InterventionsWDL *orient to call system *instruct [...] Learning Preferencesverbal instruction Cultural Considerationsnone Developmental Considerationsnone Uatsdin Considerationsnone Learning Assessment (Other Learner): Other learner [...] an injured patient at a Trauma Center ([facility]/[place]/[facility]/[place]): no Vaccinations: Vaccination - Influenza Vaccination Screen: Is it flu season (between and January 11)Yes Screening for identified contraindications to influenza vaccination patient/caregiver refusal Vaccination - Pneumonia Vaccination Screen: Patient has received a previous pneumonia vaccine:no/unknown... Immunocompetent persons with underlying chronic conditions or reside in correction care facilitieschronic liver disease, including cirrhosis Persons [...] Updated: 28-Oct-2019 11:33 by Samara Sanchez (HUSSAIN) [facility] CBC AND DIFFERENTIALon 02-14 -2020 % AUTOMATED IMMATURE GRAN 0.4 % Normal 0.0 - 0.9 [facility] Comment on above: Result Comment: Perc ent differential counts (%) should be interpreted in the context of the absolute cell counts (cells/L). Performed By: #### C BCDF #### [facility] [address] [place] [address] Basophils (Bld) [#/Vol] 0.04 10*3/uL Normal 0.00 - 0.10 [facility] Comment on above: Performed By: #### C BCDF #### [facility] [address] [place] [address] Basophils/100 WBC (Bld) 0.5 % Normal 0.0 - 2.0 [facility] Comment on above: Performed By: #### C BCDF #### [facility] [address] [place] [address] Eosinophils (Bld) [#/Vol] 0.46 10*3/uL Normal 0.00 - 0.70 [facility] Comment on above: Performed By: #### C BCDF #### [facility] [address] [place] [address] Eosinophils/100 WBC (Bld) 5.9 % Normal 0.0 - 6.0 [facility] Comment on above: Performed By: #### C BCDF #### [facility] [address] [place] [address] Erythrocyte distribution width (RBC) [Ratio] 13.1 % Normal 11.5 - 14.5 [facility] Comment on above: Performed By: #### C BCDF #### [facility] [address] [place] [address] Hematocrit (Bld) [Volume fraction] 41.4 % Normal 36.0 - 46.0 [facility] Comment on above: Performed By: #### C BCDF #### [facility] [address] [place] [address] Hemoglobin (Bld) [Mass/Vol] 13.9 g/dL Normal 12.0 - 16.0 [facility] Comment on above: Performed By: #### C BCDF #### [facility] [address] [place] [address] Lymphocytes (Bld) [#/Vol] 2.45 10*3/uL Normal 1.20 - 4.80 [facility] Comment on above: Performed By: #### C BCDF #### [facility] [address] [place] [address] Lymphocytes/100 WBC (Bld) 31.2 % Normal 13.0 - 44.0 [facility] Comment on above: Performed By: #### C BCDF #### [facility] [address] [place] [address] MCHC (RBC) [Mass/Vol] 33.6 g/dL Normal 32.0 - 36.0 [facility] Comment on above: Performed By: #### C BCDF #### [facility] [address] [place] [address] MCV (RBC) [Entitic vol] 90 fL Normal 80 - 100 [facility] Comment on above: Performed By: #### C BCDF #### [facility] [address] [place] [address] Monocytes (Bld) [#/Vol] 0.59 10*3/uL Normal 0.10 - 1.00 [facility] Comment on above: Performed By: #### C BCDF #### [facility] [address] [place] [address] Monocytes/100 WBC (Bld) 7.5 % Normal 2.0 - 10.0 [facility] Comment on above: Performed By: #### C BCDF #### [facility] [address] [place] [address] Neutrophils (Bld) [#/Vol] 4.29 10*3/uL Normal 1.20 - 7.70 [facility] Comment on above: Performed By: #### C BCDF #### [facility] [address] [place] [address] Neutrophils/100 WBC (Bld) 54.5 % Normal 40.0 - 80.0 [facility] Comment on above: Performed By: #### C BCDF #### [facility] [address] [place] [address] Nucleated RBC/100 WBC (Bld) [Ratio] 0.0 /100 WBC Normal 0.0-0.0 [facility] Comment on above: Performed By: #### C BCDF #### [facility] [address] [place] [address] Platelets (Bld) [#/Vol] 254 10*3/uL Normal 150 - 450 [facility] Comment on above: Performed By: #### C BCDF #### [facility] [address] [place] [address] RBC (Bld) [#/Vol] 4.60 x10E12/L Normal 4.00 - 5.20 [facility] Comment on above: Performed By: #### C BCDF #### [facility] [address] [place] [address] WBC (Bld) [#/Vol] 7.9 10*3/uL Normal 4.4 - 11.3 [facility] Comment on above: Performed By: #### C BCDF #### [facility] [address] [place] [address] COMPREHENSIVE PANELon 2019 Albumin [Mass/Vol] 4.2 g/dL Normal 3.4 - 5.0 [facility] Comment on above: Performed By: #### C MP #### [facility] [address] [place] [address] ALP [Catalytic activity/Vol] 73 U/L Normal 33 - 110 [facility] Comment on above: Performed By: #### C MP #### [facility] [address] [place] [address] ALT [Catalytic activity/Vol] 8 U/L Normal 7 - 45 [facility] Comment on above: Result Comment: Tabatha ents treated with Sulfasalazine may generate falsely decreased results for ALT. Performed By: #### C MP #### [facility] [address] [place] [address] Anion gap [Moles/Vol] 11 mmol/L Normal 10 - 20 [facility] Comment on above: Performed By: #### C MP #### [facility] [address] [place] [address] AST [Catalytic activity/Vol] 11 U/L Normal 9 - 39 [facility] Comment on above: Performed By: #### C MP #### [facility] [address] [place] [address] Bilirubin [Mass/Vol] 0.5 mg/dL Normal 0.0 - 1.2 [facility] Comment on above: Performed By: #### C MP #### [facility] [address] [place] [address] Calcium [Mass/Vol] 9.4 mg/dL Normal 8.6 - 10.6 [facility] Comment on above: Performed By: #### C MP #### [facility] [address] [place] [address] Chloride [Moles/Vol] 108 mmol/L High 98 - 107 [facility] Comment on above: Performed By: #### C MP #### [facility] [address] [place] [address] Creatinine [Mass/Vol] 0.55 mg/dL Normal 0.50 - 1.05 [facility] Comment on above: Performed By: #### C MP #### [facility] [address] [place] [address] GFR- AM. >60 Normal >60 [facility] Comment on above: Result Comment: CALC ULATIONS OF ESTIMATED GFR ARE PERFORMED USING THE MDRD STUDY EQUATION FOR THE IDMS-TRACEABLE CREATININE METHODS. CLIN CHEM 2007;53:766-72 Performed By: #### C MP #### [facility] [address] [place] [address] GFR-NON AM. >60 Normal >60 [facility] Comment on above: Performed By: #### C MP #### [facility] [address] [place] [address] Glucose [Mass/Vol] 77 mg/dL Normal 74 - 99 [facility] Comment on above: Performed By: #### C MP #### [facility] [address] [place] [address] HCO3 (Bld) [Moles/Vol] 27 mmol/L Normal 21 - 32 [facility] Comment on above: Performed By: #### C MP #### [facility] [address] [place] [address] Potassium [Moles/Vol] 3.7 mmol/L Normal 3.5 - 5.3 [facility] Comment on above: Performed By: #### C MP #### [facility] [address] [place] [address] Protein [Mass/Vol] 6.3 g/dL Low 6.4 - 8.2 [facility] Comment on above: Performed By: #### C MP #### [facility] [address] [place] [address] Sodium [Moles/Vol] 142 mmol/L Normal 136 - 145 [facility] Comment on above: Performed By: #### C MP #### [facility] [address] [place] [address] Urea nitrogen [Mass/Vol] 8 mg/dL Normal 6 - 23 [facility] Comment on above: Performed By: #### C MP #### [facility] [address] [place] [address] History and Physical - Neuro -Epilepsyon 10-28-2019 [...] frequently. The patient first sought treatment at [facility] ([place]), who performed an EEG [...] Due to recurrent symptoms she presented to [facility] and had CT which she was [...] had a routine EEG in February 2018 ([facility]), which described a normal EEG with good background, but occasionally featured sharply contoured waves though did not give location. Epilepsy risk factors - Born at term by after uneventful , with no known complications at . - Normal developmental milestones - No history of febrile convulsion or STRETCH PRESS OPERATOR infections. - No family history of epilepsy. - No history of major head trauma with loss of consciousness. - No history of STRETCH PRESS OPERATOR surgery. REVIEW OF SYSTEMS: 14 system review negative except for mentioned above. PAST MEDICAL AND SURGICAL HISTORY: Autoimmune hepatitis Eosinophilic esophagitis Asthmas Left knee meniscal tear Tonsils, adenoids JAILYN-USO (Left oophorectomy) FAMILY HISTORY: - No seizures or epilepsy in the family - Uncle with brain cancer - Father with stroke SOCIAL HISTORY: -Occupation: [employer] ([employer]) -Smoking: Never -Alcohol: Denies -Illicit drugs: Denies ALLERGY: Contrast dye CURRENT MEDICATION: None Allergies: Phenergan: Unknown doxycycline: Unknown sulfa drugs: Unknown contrast (specific type unknown): Unknown Medications Prior to Admission: Outpatient Meds have not been reviewed. Objective Information: Objective Information: T PRBPSpO2 [id number]/8010 0% Date/Time10/28 11: 11: 11: 11: 11:00 [...] light touch all 4 extremities. COORDINATION: - Bkvlcf-Bnux-Rjfzok: intact without dysmetria or overshoot in both [...] the note. I personally evaluated the patient [id number] Attending Provider Inpatient Certification StatementI certify this patients need for inpatient care based on the above documentation including; the order to admit as inpatient, the anticipated length of stay, diagnosis, problem list and plan of care, and discharge plan. Admission Order - View OnlyCurrent Admission Order. Admit to Inpatient Adult [facility] Admitting Diagnosis, R56.9 Seizure Admitting Service, Neurology [...] Profile - Adult v2 28-Oct-2019 10:36 Normal [facility] Patient Profile - Adult v2on 10-28-2019 Patient Profile - Adult v2 Profile: Initial Info: How to be Addressedjill Spoken Language PreferredEnglish Are you currently using the Personal Electronic Health Record or Hive guard unlimitedVisionnaireyes Stated Reason for Admissionseizures Wants Family/Rep Notified of Admissionn/a; family present Notify PCPdo not notify PCP Informed of Patient Visiting Rightsyes [place] Patient Belongingsremains with patient Medications Brought to Hospitalno General Health: Weight in kg86.6 kilogram(s) Weight in [id number] pound(s) Height in feet5 feet Height in inches3 inch(es) Height in cm160 centimeter(s) BMI (kg/m2)33.828 square meter Weight Methodstated Scale Typebed Height Methodstated [facility] Based Care: How would you like to [...] Living Arrangementshouse Resource/Environmenta l Concernsnone Anticipated [place] Services Anticipated at Transitionnone Significant IndicatorsComplete Information [...] 28-Oct-2019 11:37 by Samara Sanchez (CN) Normal [facility] Chart Updateon 10-25-2019 Chart Update Active Problems Chronic headaches (784.0) (R51) Classic migraine with aura (346.00) (G43.109) Common migraine without aura (346.10) (G43.009) Facial numbness (782.0) (R20.0) Hemisensory deficit (781.99) (R29.818) Nonspecific paroxysmal spell (780.09) (R40.4) Sensory disturbance (782.0) (R20.9) Spell of dizziness (780.4) (R42) Chart Update Progress Note Free Text_UH: Supplemental records obtained from [facility]. Pertinent summary below: 01/18/2018 Presented to [facility] ED with numbness of the right side [...] ASA 81mg for paresthesias. 02/17/2018 Presented to [facility] ED with right-sided facial numbness and drooping, [...] from prolonged EEG monitoring. 12/07/2018 Presented to [facility] ED with multiple vague complaints of dizziness (no vertigo), funny feeling on the right side of her face (worse when standing up). Reported a history of seizures but an intolerance for levetiracetam. Denied headache, neck stiffness. No other symptoms. Exam was normal. CT head was unremarkable. Advised to increase fluid increase fluids and was discharged home. 02/01/2019 Presented to [facility] ED with palpitations and arrhythmia, feeling like her heart was skipping beats. Denied any nausea, SOB, CP. No recent illness. No fevers, chills, diarrhea, abdominal pain. Would occur several times a minute initially, then became less frequent. Observed to have PVCs on exam. Discharged home with Holter (unknown if had placed). 06/12/2019 Presented to [facility] ED with nausea, vomiting, and diarrhea. Reported using multiple scopolamine patches (5 patches in 6 days, Rxd for 1 patch every 3 days; reported more given getting wet while scuba-diving). Noted she felt nauseated with blurred vision, dry mouth, urinary frequency, and warm/heavy feeling in her body. No confusion, agitation, or hallucinations. [place] to be dehydrated. Given fluids and discharged. 06/14/2019 Presented to [facility] ED with severe nausea, vomiting, dizziness, lightheadedness, blurry vision, diarrhea, and headache. Had recently removed a scopolamine patch after a cruise to the [facility]. Stated also her seizures are acting up, which she relayed were focal, left-sided seizures that cant be seen. Not on AEDs, but reported seeing a neurologist at [facility]. Exam was unremarkable, though noted to be anxious and tearful. CT head was normal. Given Flagyl 500mg PO (c/f GI illness after recent trip) and discharged home. 07/19/2019 Presented to [facility] ED with dizziness. Stated she thinks she [...] visit. Alvino Beltr[facility] MD [facility] Pager: [phone] Signatures Electronically signed by : Didier Beltrán MD; Oct 25 2019 1:55PM EST (Author) Normal [employer] Vital Signs Date Time Vital Sign Value Performing Clinician Facility 07-04-2024 14:50-0400 Body temperature 97.5 [degF] Dallin Claudio NP Work Phone: [facility] 07-04-2024 14:50-0400 Heart rate 86 /min Dallin Claudio BOTANY TEACHER Work Phone: [facility] 07-04-2024 14:50-0400 SaO2% (BldA) [Mass fraction] 99 % Dallin Claudio BOTANY TEACHER Work Phone: [facility] 01-12-2024 14:41-0400 Body height 158.12 cm [facility] 01-12-2024 14:41-0400 Body mass index (BMI) [Ratio] 37 kg/m2 [facility] 01-12-2024 14:41-0400 Body weight 92.78 kg [facility] 01-12-2024 14:41-0400 Diastolic blood pressure 84 mm[Hg] [facility] 01-12-2024 14:41-0400 Heart rate 69 /min [facility] 01-12-2024 14:41-0400 Respiratory rate 18 /min [facility] 01-12-2024 14:41-0400 SaO2% (BldA) [Mass fraction] 98 % [facility] 01-12-2024 14:41-0400 Systolic blood pressure 127 mm[Hg] [facility] 10-15-2023 14:51-0500 Body height 160 cm Shaikh Jose ADAM Work Phone: [facility] 10-15-2023 14:51-0500 Body mass index (BMI) [Ratio] 38.09 kg/m2 Shaikh Jose ADAM Work Phone: [facility] 10-15-2023 14:51-0500 Body temperature 96.91 [degF] Shaikh Jose ADAM Work Phone: [facility] 10-15-2023 14:51-0500 Body weight 97.52 kg Shaikh Jose ADAM Work Phone: [facility] 10-15-2023 14:51-0500 Diastolic blood pressure 80 mm[Hg] Shaikh Jose ADAM Work Phone: [facility] 10-15-2023 14:51-0500 Heart rate 79 /min Shaikh Jose ADAM Work Phone: [facility] 10-15-2023 14:51-0500 SaO2% (BldA) [Mass fraction] 96 % Shaikh Jose ADAM Work Phone: [facility] 10-15-2023 14:51-0500 Systolic blood pressure 100 mm[Hg] Shaikh Jose ADAM Work Phone: [facility] 04-30-2023 15:00-0400 Body height 160.02 cm Faina Miller Other [facility] Other 04-30-2023 15:00-0400 Body mass index (BMI) [Ratio] 36.1 kg/m2 Faina Miller Other [facility] Other 04-30-2023 15:00-0400 Body temperature 98 [degF] Faina Miller Other [facility] Other 04-30-2023 15:00-0400 Body weight 92.44 kg Faina Miller Other [facility] Other 04-30-2023 15:00-0400 Diastolic blood pressure 76 mm[Hg] Faina Miller Other [facility] Other 04-30-2023 15:00-0400 Respiratory rate 18 /min Faina Miller Other [facility] Other 04-30-2023 15:00-0400 SaO2% (BldA) [Mass fraction] 99 % Faina Miller Other [facility] Other 08-17-2023 15:00-0400 Systolic blood pressure 122 mm[Hg] Faina Miller Other [facility] Other 12-16-2021 16:30-0400 Body height 160.02 cm Nir Zamarripa Other [facility] Other 12-16-2021 16:30-0400 Body mass index (BMI) [Ratio] 31.35 kg/m2 Nir Zamarripa Other [facility] Other 12-16-2021 16:30-0400 Body weight 80.29 kg Nir Zamarripa Other [facility] Other 10-23-2021 15:55-0500 Body height 160.02 cm Ellie Viridiana Other [facility] Other 10-23-2021 15:55-0500 Body mass index (BMI) [Ratio] 31.35 kg/m2 Ellie Viridiana Other [facility] Other 10-23-2021 15:55-0500 Body temperature 97.9 [degF] Ellie Viridiana Other [facility] Other 10-23-2021 15:55-0500 Body weight 80.29 kg Ellie Viridiana Other [facility] Other 10-23-2021 15:55-0500 Diastolic blood pressure 90 mm[Hg] Ellie Viridiana Other [facility] Other 10-23-2021 15:55-0500 Respiratory rate 18 /min Ellie Viridiana Other [facility] Other 10-23-2021 15:55-0500 SaO2% (BldA) [Mass fraction] 99 % Ellie Kemp Other [facility] Other 10-23-2021 15:55-0500 Systolic blood pressure 143 mm[Hg] Ellie Kemp Other [facility] Other 09-24-2021 15:00-0500 Body height 160.02 cm Nir Zamarripa Other [facility] Other 09-24-2021 15:00-0500 Body mass index (BMI) [Ratio] 29.23 kg/m2 Nir Carrenoormack Other [facility] Other 09-24-2021 15:00-0500 Body weight 74.84 kg Nir Hickeyack Other [facility] Other Encounters Encounter Date Encounter Type Care Provider Facility Start: 07-22-2024 End: 07-22-2024 ambulatory Viral Lewis MD Facility:[facility] Start: 07-19-2024 End: 07-19-2024 ambulatory Mavis Candelario PA-C Facility:[facility] Start: 07-04-2024 End: 07-04-2024 ambulatory DALLIN CLAUDIO Not Available Start: 07-04-2024 End: 07-04-2024 Office outpatient visit 25 minutes Dallin Claudio BOTANY TEACHER Work Phone: [facility] Comment on above: Acute vaginitis (Katia freddy Dx); Dysuria Start: 07-04-2024 End: 07-06-2024 External Result Encounter Dallin Claudio BOTANY TEACHER Work Phone: [facility] Unsolicited Start: 07-04-2024 End: 07-06-2024 External Result Encounter Dallin Claudio BOTANY TEACHER Work Phone: [facility] Unsolicited Start: [...] 02-11-2024 End: 02-11-2024 ambulatory Viral Lewis MD Facility:[facility] Start: 01-12-2024 End: 01-12-2024 ambulatory [facility] Work Phone: Start: 01-12-2024 End: 01-12-2024 Patient encounter procedure [facility] Work Phone: Start: 01-07-2024 End: 01-07-2024 ambulatory [...] 08-27-2023 End: 08-27-2023 ambulatory Viral Lewis MD Facility:[facility] Start: 05-05-2023 End: 05-05-2023 ambulatory Faina Miller Other [place] [employer] Other Start: 05-05-2023 Telephone encounter Faina Miller [facility] [address] Start: 04-30-2023 End: 04-30-2023 Departed Referred SENIOR APPLICATIONS ENGINEER Faina Miller Work Phone: [facility] [place] Work Phone: Start: 04-30-2023 End: 04-30-2023 ambulatory Faina Miller [facility] [employer] Other Start: 04-30-2023 Office outpatient visit 15 minutes Faina Miller [facility] Start: 11-05-2022 End: 11-06-2022 ambulatory SHAIKH Vivian GARCIA Facility: Start: 10-14-2022 Encounter for genera l adult medical examination without abnormal findings DR VIRAL LEWIS [facility] Start: 10-10-2022 End: 10-11-[address] VIRAL LEWIS Facility:[facility] Start: 10-10-2022 End: 10-11-2022 Encounter for general adult medical examination without abnormal findings DR VIRAL LEWIS Facility:[facility] Start: 09-03-2022 End: 09-03-2022 ambulatory Nir Zamarripa Other [facility] Other Start: 09-03-2022 Telephone encounter Nir vogel [facility] Start: 09-01-2022 End: 09-01-2022 ambulatory Viral Lewis Facility:[facility] Start: 09-01-2022 End: 09-01-2022 Patient encounter procedure MD Viral Lewis Work Phone: [facility] [place] Start: 09-01-2022 End: 09-01-2022 ambulatory MD Virla Lewis Work Phone: [facility] Work Phone: Start: 09-01-2022 Telephone encounter Nir vogel [facility] Start: 01-20-2022 End: 01-21-2022 ambulatory BOWERS Vivian JOSE Facility:[facility] Start: 12-16-2021 End: 12-16-2021 ambulatory Nir Zamarripa Other [facility] Other Start: 12-16-2021 Patient encounter procedure Nir Zamarripa [facility] Start: 10-23-2021 End: 10-23-2021 ambulatory Ellie Kemp Other [facility] Other Start: 10-23-2021 Office outpatient visit 15 minutes Ellie Kemp [facility] Start: 10-21-2021 End: 10-21-2021 ambulatory Nir Zamarripa Other [facility] Other Start: 10-21-2021 Telephone encounter Nir vogel [facility] Start: 10-11-2021 End: 10-11-2021 ambulatory Nir Zamarripa Other [facility] Other Start: 10-11-2021 Telephone encounter Nir Valdez ck [facility] Start: 09-24-2021 End: 09-24-2021 ambulatory Nir Zamarripa Other [facility] Other Start: 09-24-2021 Office outpatient visit 15 minutes Nir Zamarripa [facility] Start: 02-14-2020 Patient encounter procedure Elian Buc[facility] [address] [employer] Work Phone: Start: 10-03-2019 Patient encounter procedure Elian Buczek PN[facility] [address] Work Phone: Start: 05-04-2018 Patient encounter procedure Elian Buczek Z[facility] [address] [employer] Work Phone: Start: 03-05-2018 Patient encounter procedure Elian Buczek [facility] [address] [employer] Work Phone: Procedures Date Procedure Procedure Detail Performing Clinician Start: 07-04-2024 GENITOURINARY INFECT ION (HTRX) Dallin Claudio BOTANY TEACHER Work Phone: Start: 07-04-2024 Urnls dip stick/tabl et rgnt auto w/o microscopy Aramis Goodson DO Work Phone: Start: 01-18-2024 Mammography Dallin white BOTANY TEACHER Work Phone: Start: 10-23-2023 TBH D-DIMER Shaikh Efrain crowell MD Work Phone: Start: 10-15-2023 ALL CBC WITH AUTO DIFF Shaikh Jose ADAM Work Phone: Start: 01-13-2023 Mammography Shaikh Efrain crowell MD Work Phone: Start: 03-20-2020 Follow-up visit Start: 02-14-2020 Follow-up visit Start: 10-03-2019 Follow-up visit Plan of Treatment Date Care Activity Detail Author Start: 04-17-2027 Screening for malignant neoplasm of colon [facility] Start: 02-16-2025 ambulatory Ambulatory Facility:[facility] Start: 01-17-2025 Screening for malignant neoplasm of breast Mammogram [facility] Start: 01-14-2024 Screening for malignant neoplasm of breast Mammogram [facility] Start: 10-15-2023 End: 10-15-2023 Patient encounter procedure 10/15/2023 2:45 PM EST Office Visit [facility] [address] [place] [id number] Shaikh Garcia MD [address] [place] [phone] Arrived [facility] Comment on above: Arrived Start: 10-15-2023 End: 10-15-2024 CBC W Auto Differential panel - Blood CBC and differential Lab Routine Bilateral lower extremity edema Autoimmune hepatitis treated with steroids (CMS/HCC) Expected: 10/15/2023 (Approximate), Expires: 10/15/2024 [facility] Comment on above: Expected: 10/15/2023 (Approximate), Expires: 10/15/2024 Start: 10-15-2023 End: 10-15-2024 Comprehensive metabolic 2000 panel - Serum or Plasma Comprehensive metabolic panel Lab Routine Bilateral lower extremity edema Autoimmune hepatitis treated with steroids (CMS/HCC) Expected: 10/15/2023 (Approximate), Expires: 10/15/2024 [facility] Comment on above: Expected: 10/15/2023 (Approximate), Expires: 10/15/2024 Start: 10-15-2023 End: 10-15-2024 Creatinine [Mass/volume] in Urine Creatinine, urine, random Lab Routine Bilateral lower extremity edema Expected: 10/15/2023 (Approximate), Expires: 10/15/2024 [facility] Comment on above: Expected: 10/15/2023 (Approximate), Expires: 10/15/2024 Start: 10-15-2023 End: 10-15-2024 Hemoglobin A1c measurement Hemoglobin A1c Lab Routine Screening for diabetes mellitus Expected: 10/15/2023 (Approximate), Expires: 10/15/2024 [facility] Comment on above: Expected: 10/15/2023 (Approximate), Expires: 10/15/2024 Start: 10-15-2023 End: 10-15-2024 Lipid 1996 panel - Serum or Plasma Lipid panel Lab Routine Screening for hyperlipidemia Expected: 10/15/2023 (Approximate), Expires: 10/15/2024 [facility] Comment on above: Expected: 10/15/2023 (Approximate), Expires: 10/15/2024 Start: 10-15-2023 End: 10-15-2024 Protein, urine, random Protein, urine, random Lab Routine Bilateral lower extremity edema Expected: 10/15/2023 (Approximate), Expires: 10/15/2024 [facility] Comment on above: Expected: 10/15/2023 (Approximate), Expires: 10/15/2024 Start: 10-15-2023 End: 10-15-2024 Vascular US lower extremity venous insufficiency bilateral Vascular US lower extremity venous insufficiency bilateral Imaging Routine Bilateral lower extremity edema Expected: 10/15/2023, Expires: 10/15/2024 [facility] Work Phone: Comment on above: Expected: 10/15/2023 , Expires: 10/15/2024 Start: 04-30-2023 [facility] Start: 2007 Screening for malignant neoplasm of cervix [facility] Start: 1998 Screening for malignant neoplasm of cervix Pap Smear [facility] Start: 1977 Screening for malignant neoplasm of colon [facility] Actin smooth muscle IgG Ab [Units/volume] in Serum [facility] Work Phone: Atopobium vaginae DN A [Presence] in Vaginal fluid by ABRAHAN with probe detection [facility] Bacterial vaginosis associated bacterium 2 DNA [Presence] in Vaginal fluid by ABRAHAN with probe detection [facility] GENITO/STI GENITO/STI Lab R outine Dysuria Ordered: 07/04/2024 [facility] Work Phone: Comment on above: Ordered: 07/04/2024 Homogenous nuclear A b pattern [Titer] in Serum [facility] Work Phone: Megasphaera sp type 1 DNA [Presence] in Vaginal fluid by ABRAHAN with probe detection [facility] Nuclear Ab [Titer] i n Serum [facility] Work Phone: JT-Yzgcuoacw-Bl agri n [facility] [address] Work Phone: NEGATED: Highlighted row has been ruled out! Planned Goals not documented PA-Tpqsencym-Ednklk n [facility] [address] Work Phone: Immunizations Immunization Date Immunization Notes Care Provider [facility] 04-24-2023 Influenza, injectabl e, Madin [place] Canine Kidney, preservative free, quadrivalent Shaikh Jose ADAM Work Phone: [facility] 03-09-2023 tetanus toxoid, redu chris diphtheria toxoid, and acellular pertussis vaccine, adsorbed Shaikh Jose ADAM Work Phone: [facility] 05-05-1983 diphtheria, tetanus toxoids and acellular pertussis vaccine Shaikh Jose ADAM Work Phone: [facility] 05-05-1983 poliovirus vaccine, inactivated Shaikh Jose ADAM Work Phone: [facility] 06-26-1979 diphtheria, tetanus toxoids and acellular pertussis vaccine Shaikh Jose ADAM Work Phone: [facility] 06-26-1979 poliovirus vaccine, inactivated Shaikh Joes ADAM Work Phone: [facility] 04-15-1979 measles, mumps and rubella virus vaccine Shaikh Jose ADAM Work Phone: [facility] 07-14-1978 diphtheria, tetanus toxoids and acellular pertussis vaccine Shaikh Jose ADAM Work Phone: [facility] 07-14-1978 poliovirus vaccine, inactivated Shaikh Jose ADAM Work Phone: [facility] 05-07-1978 diphtheria, tetanus toxoids and acellular pertussis vaccine Shaikh Jose ADAM Work Phone: [facility] 05-07-1978 poliovirus vaccine, inactivated Shaikh Jose ADAM Work Phone: [facility] 02-26-1978 diphtheria, tetanus toxoids and acellular pertussis vaccine Shaikh Jose ADAM Work Phone: [facility] 02-26-1978 poliovirus vaccine, inactivated Shaikh Jose ADAM Work Phone: [facility] Healthcare Payers Date Payer Category Payer Self-pay [id number] 2021 [facility] [id number] 2021 Unknown [id number]. [id number] .[id number] 1977 Unknown [id number] 2.16.840.1.746186.3.579.2 .593 1977 Unknown [id number] 2.16.840.1.573366.3.579.2 .593 1977 Unknown [id number] 2.16.840.1.008934.3.579.2 .593 1977 Unknown [id number] 2.16.840.1.480575.3.579.2 .9 1977 Unknown [id number] 2.16.840.1.734899.3.579.2 .1258 1977 Unknown [id number] 2.16.840.1.686892.3.579.2 .1258 1977 Unknown [id number] 2.16840.1.306404.3.579.2 .1258 1977 Unknown [id number] 2.16.840.1.634648.3.579.2 .1258 1977 Unknown [id number] 2.16840.1.778077.3.579.2 .1258 1977 Unknown [id number] 2.16840.1.507145.3.579.2 .1258 1977 Unknown [id number] 2.840.1.980232.3.579.2 .1258 1977 Unknown [id number] 2.16840.1.793604.3.579.2 .1258 1977 Unknown [id number] 2.16840.1.618994.3.579.2 .1258 1977 Unknown [id number] 2.16840.1.555056.3.579.2 .1258 1977 Unknown [id number] 2.16840.1.965947.3.579.2 .1258 1977 Unknown [id number] 2.16840.1.242345.3.579.2 .1977 Unknown [id number] 2.16840.1.469112.3.579.2 .1977 Unknown [id number] 2.16840.1.453019.3.579.2 .1977 Unknown [id number] 2.16840.1.658739.3.579.2 .1977 Unknown [id number] 2.16840.1.527184.3.579.2 .196 1977 Unknown [id number] 2.16.840.1.391985.3.579.2 .196 1977 Unknown [id number] 2.16.840.1.101686.3.579.2 .196 1977 Unknown [id number] 2.16.840.1.069972.3.579.2 .196 1977 Unknown [id number] 2.16.840.1.604658.3.579.2 .196 1959 [facility] CBKAN [id number] 2.16.840.1.190605.19 Unknown [id number] 2.16.840.1.137832.3.579.2 .531 Unknown [id number] 2.16.840.1.415400.3.579.2 .531 Social History Date Type Detail Facility Start: 09-25-2023 End: 03-02-2024 Sex Assigned At [facility] Other Start: 07-19-2019 End: 03-02-2024 Tobacco smoking status NHIS Never smoked tobacco (finding) [facility] Start: 1975 Sex Assigned At Female [facility] Start: 04-07-2023 End: 03-02-2024 Tobacco use and exposure Smokeless tobacco non-user [facility] Start: 09-25-2023 End: 07-04-2024 Alcohol intake Lifetime non-drinker (finding) [facility] Start: 09-25-2023 End: 03-02-2024 History of Social function [facility] Start: 05-08-2023 Alcohol Comment Caffeine: soda [facility] Start: 1975 Sex Assigned At Not on file [facility] NEGATED: Highlighted row - - [facility] [address] Work Phone: NEGATED: Highlighted rowStart: NINF History of tobacco use Passive smoker [facility] Functional Status Date Assessment Result Facility NEGATED: Highlighted row Functional performance Functional status health issues are not documented Disease [facility] [address] Work Phone: Mental Status Date Assessment Result Facility NEGATED: Highlighted row Cognitive function [Interpretation] Cognitive status health issues are not documented Disease [facility] [address] [address] Work Phone: Clinical Notes 09-24-2021 to 07-18-2024 Dallin Claudio NP - 07/04/2024 2:40 PM Corinna Garcia MD - 10/15/2023 5:13 PM Nikolay Garcia MD - 10/15/2023 5:12 PM Nikolay Garcia MD - 10/15/2023 5:12 PM EST Note Date & Type Note Facility 07-18-2024 Note Patient Education Ma caren Name: Trudy Wilder Current Date: 07/18/2024 12:57:13 [facility] : 1975 The following sheet(s) are the Patient Education Leaflets 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 Cotton keeps you cooler and veneer drier feeder than synthetics. ?Don't douche unless advised by [...] for advice on how to start. ? [id number] [employer]. All rights reserved. This information is not intended as a substitute for professional medical care. Always follow your healthcare professional's instructions. [facility] 07-04-2024 History of Present illness Narrative HPI: [...] be from recent use of metronidazole gel). 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 No odor. No lesions or ulcers [...] tablet; Refill: 0 documented in this encounter [facility] 02-10-2024 Note Patient Education Ma terials Name: Trudy Wilder Current Date: 02/10/2024 08:55:52 [facility] : 1975 The following sheet(s) are [...] breast self-examination (BSE). These experts include the [employer] [employer] and the [place] [employer]. Some experts [...] This means they are not cancer. ? [phone] [employer]. [address] [place] [address]. All rights reserved. This information is not [...] and can help prevent urine leakage. ? [phone] [employer]. [address] [place] [address]. All rights reserved. This information is not intended as a substitute for professional medical care. Always follow your healthcare professional's instructions. [facility] 10-15-2023 History of Present illness Narrative Associated [...] improve, for Recheck. documented in this encounter [facility] 04-30-2023 Evaluation note Encounter Date Diagnosis Assessment [...] reaction. 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 Immediate eval if abdominal pain, fever, chills, body aches, back/flank pain, nausea, urinary complaints. Avoid douching and sexual activity at this time. Patient verbalizes understanding and is agreeable to treatment plan. [facility] Other 12-19-2022 Evaluation note* Encounter Date Diagnosis Assessment Notes Treatment Notes Treatment Clinical Notes Aug, Hepatitis, autoimmune (ICD-10 - K75.4) [facility] Other 04-04-2022 Evaluation note* Encounter Date Diagnosis [...] - R10.9) PATIENT DOES EXPERIENCE THIS DISCOMFORT. [facility] Other 02-09-2022 Evaluation note* Encounter Date Diagnosis [...] days. Oct, Vaginal irritation (ICD-10 - N89.8) [facility] Other 02-07-2022 Evaluation note* Encounter Date Diagnosis Assessment Notes Treatment Notes Treatment Clinical Notes Oct, Dysphagia (ICD-10 - R13.10) [facility] Other 01-28-2022 Evaluation note* Encounter Date Diagnosis Assessment Notes Treatment Notes Treatment Clinical Notes Sep, Hepatitis, autoimmune (ICD-10 - K75.4) Sep, Vomiting (ICD-10 - R11.10) Sep, Fatigue (ICD-10 - R53.83) [facility] Other 01-11-2022 Evaluation note* Encounter Date Diagnosis [...] K20.0) RESTART THE SINGULAIR AND COMPLETE FMLA [facility] [employer] Other Chief complaint+Reason for visit Narrative* Chief Complaint Kake Reason for Visit Dietary surveillance and counseling Exercise counseling Obesity, Class II, BMI 35-39.9 [facility] Work Phone: Evaluation noteNo assessment information available [facility] Work Phone: Evaluation noteNo InformationNortLe[facility] [address] [employer] Other Evaluation note* Diagnosis Bilateral lower extremity [...] acute Obesity, Class II, BMI 35-39.9 acute [facility] Work Phone: Evaluation note* Diagnosis Class 2 [...] Surgical History hysterectomy Hospitalization History see above [employer] Other History general Narrative - Reported* Type [...] Surgical History hysterectomy Hospitalization History see above [employer] Other Family History No Family History Records [...] insufficiency bilateral Shaikh Garcia MD [address] [place] [address] [employer] [address] [place] [address] Phone: [phone] Referral ID Status Reason Start Date Expiration Date V isits Requested Visits Authorized [id number] Authorized 10/15/2023 04/12/2024 1 1 Additional Source Comments INFORMATION SOURCE (unrecogn ized section and content) DATE CREATED AUTHOR 04/06/2020 [facility] DATE CREATED AUTHOR AUTHOR'S ORGANIZ ATION 04/06/2020 [employer] DATE CREATED AUTHOR AUTHOR'S ORGANIZ ATION 11/09/2022 [facility] DATE CREATED AUTHOR AUTHOR'S ORGANIZ ATION 05/09/2023 [facility] DATE CREATED AUTHOR AUTHOR'S ORGANIZ ATION 07/06/2024 [facility] DATE CREATED AUTHOR AUTHOR'S ORGANIZ ATION 07/26/2024 [facility] REASON FOR VISIT (unrecogniz ed section and [...] Dates Faina Miller APRN Attending Provider Active [employer] Relationship Specialty Start Date End Date Viral Lewis MD [address] [place] [phone] PCP - General Family Medicine 10/15/23 [employer] Relationship Specialty Start Date End Date Viral Lewis MD [address] [place] [phone] PCP - General Family Medicine 10/15/23 [employer] Relationship Specialty Start Date End Date Viral Lewis MD [address] [place] [phone] PCP - General Family Medicine 10/15/23 [employer] Relationship Specialty Start Date End Date Viral Lewis MD [address] [place] [phone] PCP - General Family Medicine 10/15/23 [employer] Relationship Specialty Start Date End Date Viral Lewis MD [address] [place] [phone] PCP - General Family Medicine 10/15/23 Team Status: Inactive Member Role Status Dates Viral Lewis MD Primary Care Provider Active S tart: January 12, 2024 End: January 12, 2024 Arvind Jimenez DO Attending Provider Active St art: January 12, 2024 End: January 12, 2024 [employer] Relationship Specialty Start Date End Date Viral Lewis MD [address] [place] [phone] PCP - [facility] 10/15/23 Shaikh Garcia MD [address] [place] [phone] PCP [facility] 04/14/24 [employer] Relationship Specialty Start Date End Date Viral Lewis MD [address] [place] [phone] PCP - [facility] 10/15/23 Shaikh Garcia MD [address] [place] [phone] PCP [facility] 04/14/24 Goals (unrecognized section [...] BE BASED ON THE PRIMARY CLINICAL RECORDS. [facility] [facility]. provides no warranty or guarantee of the accuracy or completeness of information in this document.
--- NOTE | 2024-07-29 19:06 | CT_ITS ---
The [address] [address] Patient Name: IMAN DURAN MRN: [id number] date: 1975 Sex: F Assigned Patient Location: ER Current Patient Location: ER Accession/Order Number: [id number] Exam Date: 07/29/2024 19:20 Report Date: 07/29/2024 19:44 At the request of: EDUARDO GA Procedure: CT head/brain wo con EXAM: CT head/brain wo con HISTORY: HALL COMPARISON: None. TECHNIQUE: Axial CT scans through the head were obtained without IV contrast administration. Dose reduction techniques were achieved by using: automated exposure control and/or adjustment of mA and /or kV according to patient size and/or use of iterative reconstruction technique. FINDINGS: There is no acute intracranial hemorrhage or abnormal extra-axial fluid collection. No mass effect or midline shift is seen. There is no evidence of large acute territorial infarction. There is no hydrocephalus. To the limit of CT, the posterior fossa appears unremarkable. The calvaria and extra cranial soft tissues are unremarkable. The visualized orbits show no abnormality. The visualized paranasal sinuses show no air-fluid level. Mastoid air cells are clear. CT/CT head/brain wo con IMPRESSION: No acute intracranial process. Electronically authenticated by: CHIVO TOLENTINO Date: 07/29/2024 19:44
--- NOTE | 2024-07-29 19:07 | ED.GENADUL1 ---
HPI HPI - General Adult General Chief complaint: Headache Stated complaint: MIGRAINE Time Seen by Provider: 07/29/24 19:04 Source: patient Mode of arrival: walk-in Limitations: no limitations History of Present Illness HPI narrative: 48-year-old female presents to the emergency department for headache. It is generalized and starts in the back of the head and goes towards the front. She was seen here last night and was feeling somewhat improved prior to discharge. Toradol usually helps her. No trauma fever or stiff neck or localized weakness. It has been years since she has had a CAT scan of her head. Related Data Previous Rx's ?Medication ?Instructions ?Recorded ketorolac 10 mg tablet 10 mg PO Q8H PRN pain 5 days #14 06/20/23 tabs ondansetron 4 mg disintegrating 4 mg PO Q6H PRN nausea and 06/20/23 tablet vomiting #20 tabs oxycodone-acetaminophen 5 mg-325 1 tab PO Q6H PRN pain #20 tabs 06/20/23 mg tablet (Percocet) vxtlfrxyda-rdjyyzihvaisr-qwpmdntl 1 cap PO Q6H PRN pain #20 caps 07/29/24 50 mg-300 mg-40 mg capsule (Fioricet) Allergies Allergy/AdvReac Type Severity Reaction Status Date / Time doxycycline Allergy Unknown Vomiting Verified 07/28/24 21:13 Iodinated Contrast Media AdvReac Intermediate Palpitation Verified 07/28/24 21:13 s Opioid HPI Opioid Management Most Recent Opioid Data: Last Pain Scale 5 07/29/24 21:41 07/29/24 Review of Systems ROS Narrative A ten point review of systems is negative except as noted above. PFSH PFSH Social History Smoking status: Never smoker Little interest or pleasure in doing things: not at all Feeling down, depressed, or hopeless: not at all Exam Narrative Exam Narrative: Nurses note and vital signs reviewed and patient is not hypoxic. General: The patient appears well and in no apparent distress. Patient is resting comfortably on cart. Skin: Warm, dry, no pallor noted. There is no rash noted. Head: Normocephalic, atraumatic Eye: Normal conjunctiva, no drainage, EOMI. PERRL Ears, Nose, Mouth, and Throat: oral mucosa is moist. Nares patent. Cardiovascular: Regular Rate and Rhythm Respiratory: Patient is in no distress, no accessory muscle use, lungs are clear to auscultation, no wheezing, rales or rhonchi Back: non-tender GI: Soft and nontender Musculoskeletal: The patient has no evidence of calf tenderness, no pitting edema, symmetrical pulses noted bilaterally Neurological: A&O, normal speech; upper and lower extremity strength intact Psychiatric: Cooperative Constitutional Vital Signs, click to edit/add: Last Vital Signs Pulse 104 H 07/29/24 19:00 Resp 18 07/29/24 19:00 BP 178/84 H 07/29/24 19:00 Pulse Ox 99 07/29/24 19:00 O2 Del Method Room Air 07/29/24 19:00 Course Vital Signs Vital signs: Vital Signs Pulse Rate 104 H 07/29/24 19:00 Respiratory Rate 18 07/29/24 19:00 Blood Pressure 178/84 H 07/29/24 19:00 Pulse Oximetry 99 07/29/24 19:00 Oxygen Delivery Method Room Air 07/29/24 19:00 Pulse Rate 104 H 07/29/24 19:00 Respiratory Rate 18 07/29/24 19:00 Blood Pressure 178/84 H 07/29/24 19:00 Pulse Oximetry 99 07/29/24 19:00 Oxygen Delivery Method Room Air 07/29/24 19:00 Medical Decision Making MDM Narrative Medical decision making narrative: CT brain is negative and she is feeling improved. She is discharged home with a prescription sent in for Fioricet. Treatment diagnosis and follow-up were discussed with the patient. I have no clinical suspicion of meningitis. WBC mildly elevated likely due to the steroids she received yesterday. Differential Diagnosis Differential Diagnosis: Migraine headache, tension headache, nonspecific headache Lab Data Lab results reviewed: Yes I reviewed the patient's lab results Labs: Lab Results 07/29/24 Range/Units 19:40 WBC 14.2 H (4.0-11.0) 10^3/uL RBC 5.06 (4.20-5.40) 10^6/uL Hgb 15.0 (12.0-16.0) g/dL Hct 44.2 (36.0-48.0) % MCV 87.4 (81.0-99.0) fL MCH 29.6 (26.7-34.0) pg MCHC 33.9 (29.9-35.2) g/dL RDW 12.5 (11.0-15.0) % Plt Count 306 (150-450) 10^3/uL MPV 10.5 (9.5-13.5) fL Neut % (Auto) 83.8 H (43.0-75.0) % Lymph % (Auto) 11.0 L (20.5-60.0) % [place] % (Auto) 3.1 (1.7-12.0) % Eos % (Auto) 0.0 L (0.9-7.0) % Baso % (Auto) 0.1 L (0.2-2.0) % Neut # (Auto) 11.9 H (1.4-6.5) 10^3/uL Lymph # (Auto) 1.6 (1.2-3.8) 10^3/uL [place] # (Auto) 0.4 (0.3-0.8) 10^3/uL Eos # (Auto) 0.0 (0.0-0.7) 10^3/uL Baso # (Auto) 0.0 (0.0-0.1) 10^3/uL Abs Immat Gran (auto) 0.28 H (0.00-0.03) 10^3/uL Imm/Tot Granulo (auto) 2.0 H (0.0-0.5) % Sodium 141 (136-145) mmol/L Potassium 4.0 (3.5-5.1) mmol/L Chloride 104 (98-107) mmol/L Carbon Dioxide 23.5 (21.0-32.0) mmol/L Anion Gap 17.5 BUN 17.0 (7.0-18.0) mg/dL Creatinine 0.95 (0.55-1.02) mg/dL Est GFR ( Amer) >60 (>=60 mL/min/1.73m^2) Est GFR (Non-Af Amer) >60 (>=60 mL/min/1.73m^2) BUN/Creatinine Ratio 17.9 Glucose 107 H (74-106) mg/dL Calcium 9.6 (8.5-10.1) mg/dL Imaging Data CT scan - head: Radiologist's impression: ITS Impressions Head CT 07/29/24 19:06 IMPRESSION: No acute intracranial process. Electronically authenticated by: CHIVO TOLENTINO Date: 07/29/2024 19:44 Discharge Plan Discharge Chief Complaint: Headache Clinical Impression: Headache Patient Disposition: Home, Self-Care Time of Disposition Decision: 21:50 Condition: Good Mode of Transportation: Private Vehicle Prescriptions / Home Meds: New vykbjbnurq-bfpbnhojsomta-bhge [Fioricet] 50-300-40 mg capsule 1 cap PO Q6H PRN (Reason: pain) Qty: 20 0RF No Action ketorolac 10 mg tablet 10 mg PO Q8H PRN (Reason: pain) 5 Days Qty: 14 0RF oxycodone-acetaminophen [Percocet] 5-325 mg tablet 1 tab PO Q6H PRN (Reason: pain) Qty: 20 0RF ondansetron 4 mg tablet,disintegrating 4 mg PO Q6H PRN (Reason: nausea and vomiting) Qty: 20 0RF Print Language: South African Instructions: Acute Headache (ED) Referrals: Viral Loving MD [Primary Care Provider] - 1 week
[2024-07-29] MEDS: ONDANSETRON PF 4 MG/2 ML VIAL IV ×2 (19:41→21:07)
[2024-07-29] MEDS: METHYLPREDNISOLONE SOD SUCC PF 125 MG/2 ML VIAL IVP (19:41)
[2024-07-29] MEDS: KETOROLAC TROMETHAMINE 30 MG/ML VIAL IVP ×2 (19:42→21:41)
[2024-07-29] MEDS: 0.9 % SODIUM CHLORIDE 1,000 ML 1000 ML IV (19:55)
[2024-07-29 20:08] LABS: Basophils Percent Auto 0.1 % (0.2-2.0); Hematocrit 44.2 % (36.0-48.0); Immature Granulocytes Abs Auto 0.28 10^3/uL (0.00-0.03); Lymphocytes Absolute Auto 1.6 10^3/uL (1.2-3.8); Mean Corpuscular HGB Conc 33.9 g/dL (29.9-35.2); Mean Corpuscular Hemoglobin 29.6 pg (26.7-34.0); Mean Corpuscular Volume 87.4 fL (81.0-99.0); Mean Platelet Volume 10.5 fL (9.5-13.5); Monocytes Absolute Auto 0.4 10^3/uL (0.3-0.8); Monocytes Percent Auto 3.1 % (1.7-12.0); Neutrophils Absolute Auto 11.9 10^3/uL (1.4-6.5); Neutrophils Percent Auto 83.8 % (43.0-75.0); Platelet Count 306 10^3/uL (150-450); Red Blood Count 5.06 10^6/uL (4.20-5.40); Red Cell Distribution Width 12.5 % (11.0-15.0); White Blood Count 14.2 10^3/uL (4.0-11.0)
[2024-07-29 20:14] LABS: Anion Gap 17.5; BUN Creatinine Ratio 17.9; Calcium 9.6 mg/dL (8.5-10.1); Carbon Dioxide 23.5 mmol/L (21.0-32.0); Chloride 104 mmol/L (98-107); Estimated GFR (African America >60 (>=60 mL/min/1.73m^2); Estimated GFR (Non-African Ame >60 (>=60 mL/min/1.73m^2); Glucose 107 mg/dL (74-106); Sodium 141 mmol/L (136-145)
[2024-07-29 22:07] VITALS: BP 129/75; PULSE 88; O2SAT 100
== END 2024-07-29 22:09 | disposition home or self-care (01) ==
PROVIDERS: Emergency Provider Emergency Medicine; PCP Family Medicine
DX: R51.9 Headache, unspecified (principal)
CPT/HCPCS: 36415; 70450; 80048; 85025; 96374; 96375; 96376; 99285; J1885; J2405; J2919

== ENCOUNTER 2025-03-12 20:09 | Emergency (ER) | payer BC, SELFPAY ==
[2025-03-12 20:13] VITALS: BP 138/99; PULSE 96; TEMP 37.4; O2SAT 96; BMI 35.4
--- OUTSIDE RECORDS SUMMARY | 2025-03-12 20:16 | XMS_ITS | CCD ---
Author Organization [facility] Care Team Providers Care Business Services Specialist Sales Name Role Phone Elian Doherty Unavailable Unavailable Didier Beltrán Unavailable Unavailable Viral Lewis Unavailable Unavailable Nir Cotto Unavailable Ellie Kemp Unavailable MD Viral Lewis Primary Care Provider [phone] MD Nir Cotto Attending Provider PHOENIX GARCIAIKH H Admitting Unavailable FAQUIQUE, BOWERS H Consulting Unavailable JOSE, BOWERS H Attending Unavailable NADEREJohny, DR VIRAL Cervantes Primary Care Unavailable NADERER, DR VIRAL Cervantes Consulting Unavailable NADEREJohny, DR VIRAL Cervantes Attending Unavailable NADERER, DR VIRAL Cervantes Admitting Unavailable NADERER, DR VIRAL Cervantes Primary Care Unavailable FAWWALuke, BOWERS H Attending Unavailable FAWWAD, BOWERS H Admitting Unavailable FAWWALuke, BOWERS H Consulting Unavailable JOSHUA, DR VIRAL Cervantes Primary Care Unavailable CERVANTESGOGO RawlsIN Consulting Unavailable Faina Miller Unavailable CRISSY Miller Attending Provider [phone] Viral Lewis MD Primary Care Provider [phone] Shaikh Garcia MD Unavailable Viral Lewis MD Primary Care Provider Catie Flores DO Emergency Provider [phone] Valerio Zheng DO Admit Provider Valerio Zheng DO Attending Provider Spenser Yarbrough MD Attending Provider Bowen Lozano MD Other Provider Ly, Melissa L Admitting Unavailable Ly, Melissa L Attending Unavailable Joshua, Viral Primary Care Unavailable Ly, Melissa L Admitting Unavailable Ly, Melissa L Attending Unavailable Joshua, Viral Primary Care Unavailable Nadlarry, Viral Primary Care Unavailable Jus Zhengistopher Admitting Unavailabl e Spenser Yarbrough Attending Unavailab Bowen Bloom Consulting Unavailable BREE BENITEZ Attending Unavailable CHRISTIN ROWE Attending Unavailable LINWOOD MENA Attending Unavailable OLGUIN, MARY W Referring Unavailable JANESSA, ANTHONY Norton Attending Unavailable OLGUIN, MARY W Referring Unavailable JANESSA, ANTHONY Norton Attending Unavailable OLGUIN, MARY W Referring Unavailable SHAIKH GARCIA Attending Unavailable JOSHUA, VIRAL Attending Unavailable MICHELLE, DALLIN Ponce Attending Unavailable JOSHUA, VIRAL Attending Unavailable Joshua ADAM, Viral [facility] Unavail able Cris GREER, Sendy Quigley Attending Unavasravanthi Crain PA-C, Wil Easley Attending Unavail able Joshua ADAM, Viral [facility] Unavail able Joshua ADAM, Viral [facility] Care Unavail able Cris GREER, Sendy Quigley Attending Love Lewis MD, Viral [facility] Unavail able Kodak GREER, Mavis Easley Attending Marry farrah Lewis MD, Viral [facility] Unavail able Cris GREER, Sendy Quigley Attending Marryvasravanthi Candelario PA-C, Mavis Easley Attending Marry Viral Solano MD [facility] Unavail able Kodak GREER, Mavis Easley Attending Marry farrah Lewis MD, Viral [facility] Unavail able Joshua ADAM, Viral [facility] Unavail able Cris GREER, Sendy Quigley Attending Marryvasravanthi Candelario PA-C, Mavis Easley Attending Marry farrah Lewis MD, Viral [facility] Unavail able Joshua ADAM, Viral Self Primary Care Unavail able Cris GREER, Sendy Quigley Attending Love Lewis MD, Viral Self Primary Care Unavail able Kodak GREER, Mavis Easley Attending Marry Lewis MD, Viral Self Primary Care Unavail able Cris GREER, Sendy Quigley Attending Love flores Allergies Allergy Classification Reported Allergen(s) Allergy Type Date of Onset Reaction(s) Facility (20 sources) Doxycycline; Translations: [doxycycline] Drug Allergy 06-21-20 13 GI intolerance [facility] (4 sources) Promethazine; Translations: [Phenergan] Drug Allergy 06-21-20 13 [facility] Repository (2 sources) Sulfonamides (Antibiotic) Allergy to drug (finding) [facility] [address] [employer] Work Phone: (9 sources) Clarithromycin Drug Allergy Unknown [facility] Other (20 sources) Promethazine Drug Allergy 06-14-20 [facility] (9 sources) Sulfacetamide Drug Allergy Unknown Noah Other (9 sources) cat scan contrast Propensity to adverse reactions Unknown Noah Other (2 sources) Sulfonamides (Antibiotic) Allergy to substance 06-14-20 19 Rash [facility] (6 sources) Iodinated Contrast Media; Translations: [Iodinated Contrast Media] Allergy to substance 06-14-20 Difficulty Breathing [facility] Comment on above: CT ONLY (1 source) Sulfonamides (Antibiotic) Drug allergy (disorder) 06-21-20 13 [facility] Repository (1 source) topiramate Drug Allergy 06-21-20 13 [facility] Repository (5 sources) Sulfonamides (Antibiotic) Drug Allergy 06-14-20 19 Hives, Rash [facility] (3 sources) Scopolamine; Translations: [scopolamine] Drug Allergy 07-31-20 [facility] (1 source) Promethazine Drug Allergy 08-25-20 [facility] Repository (6 sources) Clindamycin; Translations: [clindamycin] Drug Allergy 01-17-20 GI intolerance [facility] (1 source) Contrast media; Translations: [contrast media (iodine-based)] Propensity to adverse reactions to drug (disorder) [facility] Repository Medications Current Medications Medication Drug Class(es) Dates Sig (Normalized) Sig (Original) amoxicillin 875 mg / clavulanate 125 mg oral tablet (2 sources) Penicillin-class Antibacterial Start: 09-15-2024 End: 09-29-2024 take 1 tablet by mouth in the morning amoxicillin-clavula abelino (Augmentin) 875-125 MG tablet Indications: Chronic rhinosinusitis Take 1 tablet (875 mg) by mouth in the morning and 1 tablet (875 mg) before bedtime. Do all this for 14 days. 28 tablet 09/15/2024 09/29/2024 Active azithromycin 250 mg oral tablet (5 sources) Macrolide Antimicrobial Start: 01-30-2025 azithromycin (Zithromax Z-German) 250 MG tablet Indications: Dysuria Take 2 tablets (500 mg) on Day 1, followed by 1 tablet (250 mg) once daily on Days 2 through 5. 6 tablet 01/30/2025 Active Start: 10-23-2021 take 2 tablets by mouth once Z ithromax 500 MG 2 tabs Orally once for 1 days Oct, Active fexofenadine hydrochloride 180 mg oral tablet (7 sources) Histamine-1 Receptor Antagonist Start: 09-15-2024 End: 09-15-2025 take 1 tablet by mouth once daily as needed fexofenadine (Simona) 180 MG tablet Indications: Chronic rhinosinusitis Take 1 tablet (180 mg) by mouth Daily as needed (allergies) 30 tablet 5 09/15/2024 09/15/2025 Active fluconazole 150 mg oral tablet (16 sources) Azole Antifungal Start: 01-18-2025 End: 02-01-2025 fluconazole (Diflucan) 150 MG tablet Indications: Dysuria Take 1 tablet (150 mg) by mouth Daily for 2 doses 1 dose and repeat second dose in 3 days. 2 tablet 01/30/2025 02/01/2025 Active Start: 06-29-2024 End: 07-04-2024 take 1 tablet [...] today, repeat in 1 week. Oct, Active furosemide 20 mg oral tablet (2 sources) Loop Diuretic Start: 10-22-2023 End: 11-21-2023 take 1 tablet by mouth in the morning furosemide (Lasix) 20 MG tablet Indications: Bilateral lower extremity edema Take 1 tablet (20 mg) by mouth in the morning. 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 TAKE 1 CAPSULE BY MOUTH EVERY DAY 90 capsule 3 07/06/2024 Active Start: 04-23-2018 End: 12-07-2018 take 1 capsule by mouth twice daily Omeprazole 40 mg Capsule,Delayed Release(Dr/Ec) Discontinued 40 MG PO Twice daily April 22, 2018 11:00pm December 07, 2018 12:23pm ondansetron 4 mg disintegrating oral tablet (6 sources) Serotonin-3 Receptor Antagonist Start: 07-31-2024 take 1 tablet by mouth every eight hours as needed for nausea and vomiting Ondansetron 4 mg tablet,disintegrating Active 4 MG PO Q8H as needed for nausea and vomiting July 31, 2024 12:00am Start: 06-15-2019 End: 01-12-2024 Ondansetron 4 mg tablet,disi ntegrating Discontinued 4 MG PO every 6 to 8 hours as needed for nausea and vomiting June 14, 2019 11:00pm January 12, 2024 1:34pm pantoprazole 40 mg delayed release oral tablet (2 sources) Proton Pump Inhibitor Start: 01-29-2023 take 1 tablet by mouth every twenty-four hours Pantoprazole Sodium 40 MG 1 tablet Orally Once a day for 30 days January, Active sucralfate 1000 mg oral tablet (1 source) Aluminum Complex Start: 07-31-2024 take 1 tablet by mouth four times daily 1 hour(s) before bedtime Sucralfate (Carafate) 1 gram tablet Active 1 GM PO Four times daily 112 July 31, 2024 12:00am administer 1 hour before meals and at bedtime Toradol 30 mg/ml (5 sources) Start: 03-26-2021 Toradol 30 mg/ml Mar, 60 mg Completed/Discontinued Medications Medication Drug Class(es) Dates Sig (Normalized) Sig (Original) amitriptyline hydrochloride 10 mg oral tablet (7 sources) Tricyclic Antidepressant Start: 02-02-2018 End: 01-12-2024 take 1 tablet by mouth once daily Amitriptyline 10 mg tablet Discontinued 10 MG PO Daily April 22, 2018 11:00pm January 12, 2024 1:34pm cefTRIAXone (5 sources) Cephalosporin Antibacterial Start: 10-23-2021 Ceftriaxone 500mg Oct, 500 mg ciprofloxacin 500 mg oral tablet (2 sources) Quinolone Antimicrobial Start: 01-16-2025 End: 01-18-2025 take 1 tablet by mouth in the morning ciprofloxacin (Cipro) 500 MG tablet Indications: Dysuria Take 1 tablet (500 mg) by mouth in the morning and 1 tablet (500 mg) before bedtime. Do all this for 7 days. 14 tablet 01/16/2025 01/18/2025 Discontinued lamoTRIgine 25 mg oral tablet (2 sources) [...] Active meclizine hydrochloride 25 mg oral tablet (5 sources) Antiemetic Start: 06-15-2019 End: 01-12-2024 take 1 tablet by mouth three to four times daily as needed for dizziness Meclizine 25 mg tablet Discontinued 25 MG PO 3 to 4 times per day as needed for dizziness 120 June 14, 2019 11:00pm January 12, 2024 1:34pm metroNIDAZOLE 500 mg oral tablet (18 sources) Nitroimidazole Antimicrobial Start: 07-04-2024 End: 07-11-2024 [...] Start: 10-23-2021 take 4 tablets by mo ut once at mealtime metroNIDAZOLE 500 MG 4 [...] mg tablet Discontinued 500 MG PO Q12H 20 June 14, 2019 11:00pm January 12, 2024 1:34pm montelukast 10 mg oral tablet (14 sources) Leukotriene Receptor Antagonist Start: 11-15-2018 End: 01-12-2024 take 2 tablets by mouth once daily in the evening Montelukast (Singulair) 10 mg Tablet Discontinued 20 MG PO Every evening November 15, 2018 12:00am January 12, 2024 1:34pm take 1 tablet by lulu th every twenty-four hours Singulair 5 MG 1 tablet Orally Once a day for 30 days Active oseltamivir 75 mg oral capsule (5 sources) Neuraminidase Inhibitor Start: 11-15-2018 End: 11-20-2018 take 1 capsule by mouth twice daily Oseltamivir (Tamiflu) 75 mg capsule Discontinued 75 MG PO Twice daily 10 November 15, 2018 12:00am November 19, 2018 12:00am November 20, 2018 12:03am predniSONE 10 mg oral tablet (3 sources) Start: 01-12-2024 End: 07-31-2024 Prednisone 10 mg tablet Discontinued 10 MG PO January 11, 2024 11:00pm July 31, 2024 8:21am valACYclovir 500 mg oral tablet (3 sources) Herpesvirus Nucleoside Analog DNA Polymerase Inhibitor, Herpes Simplex Virus Nucleoside Analog DNA Polymerase Inhibitor, Herpes Zoster Virus Nucleoside Analog DNA Polymerase Inhibitor Start: 01-12-2024 End: 07-31-2024 Valacyclovir 500 mg tablet Discontinued 500 MG PO as needed January 11, 2024 11:00pm July 31, 2024 8:21am Problems Active Problems Problem Classification Problem Date Documented Da te Episodic/Chronic Abdominal hernia (9 sources) Hiatal hernia; Translations: [Diaphragmatic hernia without obstruction or gangrene] Episodic Abdominal pain (20 sources) Abdominal pain; Translations: [Unspecified abdominal pain] Onset: 09-24-2021 Resolved: 12-16-2021 Episodic Administrative/social admission (2 sources) Dietary counseling and surveillance; Translations: [Dietary surveillance and counseling] 01-12-2024 Episodic Cardiac dysrhythmias (5 sources) Palpitations; Translations: [Palpitations] 02-01-2019 Episodic Complications of surgical procedures or medical care (5 sources) Drug therapy finding; Translations: [Unspecified adverse effect of drug or medicament, initial encounter] 06-12-2019 Episodic Disorders usually diagnosed in infancy, childhood, or adolescence (5 sources) Attention deficit hyperactivity disorder, predominantly inattentive type; Translations: [Other specified behavioral and emotional disorders with onset usually occurring in childhood and adolescence] Onset: 11-22-2024 11-22-2024 Chronic Esophageal disorders (20 sources) Lower esophageal ring; Translations: [Esophageal obstruction] Onset: 09-24-2021 Resolved: 12-16-2021 Chronic Fluid and electrolyte disorders (10 sources) Dehydration; Translations: [Dehydration] Onset: 07-31-2024 06-15-2019 Episodic Gastritis and duodenitis (8 sources) Duodenitis; Translations: [Duodenitis without bleeding] Onset: 07-31-2024 07-31-2024 Episodic Gastroduodenal ulcer (except hemorrhage) (10 sources) Ulcer of duodenum; Translations: [Duodenal ulcer, unspecified as acute or chronic, without hemorrhage or perforation] Onset: 08-29-2024 09-15-2024 Chronic Genitourinary symptoms and ill-defined conditions (6 sources) Dysuria; Translations: [Dysuria] 07-04-2024 Episodic Headache; including migraine (20 sources) Migraine with aura; Translations: [Migraine without aura] Onset: 03-01-2024 Resolved: 03-22-2024 03-01-2024 Chronic Headache; including migraine (2 sources) Chronic headache disorder; Translations: [Chronic headaches] Episodic Hepatitis (20 sources) Autoimmune hepatitis; Translations: [Autoimmune hepatitis] Onset: 09-24-2021 Resolved: 10-11-2021 Chronic Inflammatory diseases of female pelvic organs (3 sources) Acute vaginitis; Translations: [Acute vaginitis] 07-04-2024 Episodic Intestinal infection (14 sources) Helicobacter-associat ed disease; Translations: [Other specified [...] Resolved: 10-23-2021 Episodic Other female genital disorders (20 sources) Burning sensation of vagina; Translations: [Unspecified condition associated with female genital organs and menstrual cycle] Onset: 04-07-2023 Resolved: 03-02-2024 04-07-2023 Episodic Other gastrointestinal disorders (2 sources) H/O: [...] sources) Diarrhea; Translations: [Diarrhea, unspecified] Episodic Other liver diseases (10 sources) Fatty (change of) liver, not elsewhere classified; Translations: [Other chronic nonalcoholic liver disease] Onset: 09-13-2024 09-15-2024 Chronic Other nervous system disorders (2 sources) Sensory [...] Chronic Other nutritional; endocrine; and metabolic disorders (20 sources) Obesity caused by energy imbalance; Translations: [Other obesity due to excess calories] Onset: 08-31-2023 08-31-2023 Chronic Other nutritional; endocrine; and metabolic disorders (3 sources) Obese class II; Translations: [Obesity, unspecified] 01-12-2024 Chronic Other nutritional; endocrine; and metabolic disorders (1 source) Obesity, unspecified; Translations: [Obesity, unspecified] 01-12-2024 Chronic Other nutritional; endocrine; and metabolic disorders (9 sources) Loss of appetite; Translations: [Anorexia] Episodic Other skin disorders (2 sources) H/O: skin disorder; Translations: [History of sebaceous cyst] Episodic Other upper respiratory disease (18 sources) Allergic rhinitis caused by mold; Translations: [Other allergic rhinitis] Onset: 04-07-2023 04-07-2023 Chronic Other upper respiratory infections (9 sources) Chronic sinusitis, unspecified; Translations: [Chronic rhinitis] Onset: 09-15-2024 09-15-2024 Chronic Residual codes; unclassified (2 sources) Sensory symptoms; Translations: [Hemisensory deficit] Episodic Past or Other Problems Problem Classification Problem Date Documented Da te Episodic/Chronic Blindness and vision defects (18 sources) Visual disturbance; Translations: [Unspecified visual disturbance] Onset: 04-07-2023 04-07-2023 Episodic Conditions associated with dizziness or vertigo (20 sources) Dizziness; Translations: [Dizziness and giddiness] Onset: 04-07-2023 07-19-2019 Episodic Osteoarthritis (18 sources) Osteoarthritis of right knee joint; Translations: [Unilateral primary osteoarthritis, right knee] Onset: 04-07-2023 Resolved: 03-02-2024 04-07-2023 Chronic Other connective tissue disease (12 sources) Plantar fasciitis; Translations: [Plantar fascial fibromatosis] Onset: 02-23-2024 02-23-2024 Episodic Other connective tissue disease (12 sources) Deformity of lower limb; Translations: [Contracture of muscle, right lower leg] Onset: 02-23-2024 02-23-2024 Episodic Other gastrointestinal disorders (1 source) Heartburn [...] 10-15-2023 10-15-2023 Episodic Other upper respiratory infections (18 sources) Pharyngitis; Translations: [Acute pharyngitis, unspecified] Onset: 08-31-2023 Resolved: 09-15-2024 08-31-2023 Episodic Residual codes; unclassified (1 source) High risk heterosexual behavior Onset: 10-23-2021 Resolved: 10-23-2021 Episodic Residual codes; unclassified (18 sources) Disorder of head; Translations: [Other general symptoms and signs] Onset: 04-07-2023 Resolved: 03-02-2024 04-07-2023 Episodic Residual codes; unclassified (20 sources) Bilateral lower limb edema; Translations: [Localized edema] Onset: 10-15-2023 10-15-2023 Episodic NEGATED: Highlighted row has not occurred!Residual codes; unclassified (8 sources) Disease Episodic Results Test Name Value Interpretation Reference Range Facility [facility] Mammogram Digital Screen Bilat + Tomoon 02-20-2025 [facility] Mammogram Digital Screen Bilat + Ravinder #[id number] - [facility] MAMMOGRAM DIGITAL SCREEN BILAT + RAVINDER BILATERAL DIGITAL SCREENING MAMMOGRAM 3D/2D WITH CAD: 02/16/2025 CLINICAL: Screening. Comparison is made to exams dated: 02/11/2024 mammogram, 01/13/2023 mammogram, 12/27/2021 mammogram, and 12/25/2020 mammogram - [facility]. There are scattered areas of fibroglandular density. Current study was also evaluated with a Computer Aided Detection (CAD) system. No significant masses, calcifications, or other findings are seen in either breast. IMPRESSION: NEGATIVE There is no mammographic evidence of malignancy. A 1 year screening mammogram is recommended. (02/17/2026) The patient was notified of the results. Investigation of a clinically suspicious lesion should not be precluded by the lack of specific imaging findings. 10-15% of breast cancers may not be detected on mammograms. The [employer] supports annual screening mammography starting at age 40. Gita kim/joshua:02/20/2025 11:56:31 Dentistry Professor(s): Zenobia Molina [facility] letter sent: New Mammo Normal B1/2 Mammogram BI-RADS: 1 Negative Final Dictated by: Gita Zhang DO Signed by: Gita Zhang DO Signed (Electronic Signature): 02/20/2025 11:56 am (If Report Is Signed, Electronically Signed in Other Vendor System) Normal [facility] Ureaplasma species, PCR-Barton on 02-20-2025 Specimen Source (URRP)-Barton vagina Normal [facility] Comment on above: Performed By: #### C [id number] #### [address] [address] Ureaplasma parvum PCR-Barton Positive Abnormal Not Applicable [facility] Comment on above: Result Comment: ADDITIONAL INFORMATION This test was developed and its performance characteristics determined by [facility] in a manner consistent with CLIA requirements. This test has not been cleared or approved by the U.S. Food and Drug Administration. Test Performed by: [facility] - [address] [address] Building Services Technician: Rudolph Garcia Ph.D.; CLIA# [id number] Performed By: #### C [id number] #### [address] [address] Ureaplasma urealyticum PCR-Barton Negative Normal Not Applicable [facility] Comment on above: Performed By: #### C [id number] #### [address] [address] Gynecology Office/Clinic Not ramila 02-16-2025 Gynecology Office/Clinic Note Chief Complaint 49 y/o , , Annual Exam, Last pap; Roe. TLH/BS on 02/04/16, Left Oophorectomy Mammogram; 02/11/24 Benign, dense tissue breast. History of Present Illness Pelvic Pain: No Painful Sex: No Abnormal Vaginal Discharge: No Abnormal Vaginal Bleeding: No Vaginal Dryness: No Vaginal Itch: No Vaginal Burning: No Vaginal Odor: No Hot Flashes: No Night Sweats: No Breast Lump: No Breast Pain: No Sexually Active: Yes 02/16/25 09:02:00 49 y/o , , Annual Exam, Last pap; Roe. TLH/BS on 02/04/16, Left Oophorectomy Mammogram: 02/11/24 Benign, dense tissue breast. Sexual history: Not currently sexually active. Colonoscopy: Declines. History of sigmoidoscopy years ago and had traumatic experience. re-assured patient on new procedure, patient declines referral. Patient was in last week and tested for Ureaplasma vaginally. She tested positive, which was the third culture in past 2 months that was positive. Patient has finished her Z-German and states her symptoms of vaginal burning and discharge have improved. Patient was also evaluated and diagnosed with atrophic vaginitis. She was initiated on vaginal estrogen cream daily x 2 weeks, then plans to use 1?2 nights weekly. Patient is aware I feel some of her symptom improvement is likely related to treatment of her atrophic vaginitis. Patient verbalized understanding. She still would prefer a repeat Ureaplasma culture today. She plans for repeat Z-German monthly x 3 due to recurrent symptoms/infection. 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 Additional Details Contraception Contraception TypeNone Review of Systems Head Migraines: No Headaches: No Eyes Corrective Lenses: None Blurred vision: None Ears, Nose, Throat Congestion: No Vertigo: No Sore throat: No Nasal drainage: No Cardio Respiratory Peripheral edema: No Heart Irregularity: No Chest Pain: No Shortness of Breath: No Gastrointestinal Bloating: No Reflux/heartburn: No Abdominal Pain: No Change in bowel habits: No Urinary Urinary Incontinence: No Urinary frequency: No Nocturia: No Urgency: No Painful urination: No Musculoskeletal Back Pain: No Muscle Aches: No Joint Pain: No Integumentary Lesions: No Moles: No Acne: No Hair changes: No PsychoSocial Sleep Problems: No Anxiety: No Suicidal Ideation: No Homicidal Ideation: No Depression: No Hematologic/Lymphatic Lymphadenopathy: No Thromboembolism: No Bruising: No Bleeding tendencies: No Endocrine Abnormal weight gain: No Abnormal weight loss: No Fatigue: No Additional Details Pain Present Pain present: No actual or suspected pain Physical Exam Vitals & Measurements BP: 124/78 HT: 162 cm WT: 92.5 kg (Dosing) WT: 92.5 kg BMI: 35.25 Additional Vitals BP Position/Location: Sitting, Right arm General: Alert and oriented x 3. Well nourished. No acute distress. Neck: Supple, non-tender. Normal thyroid. No lymphadenopathy. [...] meatus. No lesions. Vulvar skin intact. Genitourinary: Atrophic vaginal mucosa. No lesions or abnormal discharge. Better moisture noted today since initiation of estrogen. Small amount of thin white discharge in the vaginal vault. Culture taken and pending. Bimanual exam: No adnexal tenderness or masses. Assessment/Plan 1. Encounter for gynecological examination (general) (routine) without abnormal findings Physician Comments 1. Recommend monthly self breast exam and call with any changes. 2. Recommend yearly mammogram starting at age 40 (sooner if family history). 3. Recommend colonoscopy to screen for colon cancer beginning at age 45. Ordered: [id number] AMB Preventative EST patient; 40-64 years Ureaplasma species, PCR-Barton 2. Atrophic vaginitis 3. Vaginal burning Medical Decision Making Chronic conditions NOT treated during this visit that affected my overall medical decision making: [] Treatment plans discussed but not opted for at this time: [] Prescribed medication that requires intensive monitoring for toxicity: [] I have reviewed the patient?s medication list for medication interactions/contraindica tions and/or for upcoming procedures: [yes or no] Time Spent with the Patient I have personally spent [] minutes on this date, directly related to today's patient visit, including pre and post visit work, for this date of service. Time listed does not include time spent on separate (more content not included)... Normal [facility] Mycoplasma hominis, PCR-Barton on 02-04-2025 Mycoplasma hominis PCR-Barton Negative Normal Not Applicable [facility] Comment on above: Result Comment: ADDITIONAL INFORMATION This test was developed and its performance characteristics determined by [facility] in a manner consistent with CLIA requirements. This test has not been cleared or approved by the U.S. Food and Drug Administration. Test Performed by: [place] [address] Building Services Technician: Rudolph Garcia Ph.D.; CLIA# [id number] Performed By: #### Lulu [id number] #### [address] [address] Specimen Source (RP)-Barton vaginal Normal [facility] Comment on above: Performed By: #### C [id number] #### [address] [address] Ureaplasma species, PCR-Barton on 02-04-2025 Specimen Source (RP)-Barton vaginal Normal [facility] Comment on above: Performed By: #### Lulu [id number] #### [address] [address] Ureaplasma parvum PCR-Barton Positive Abnormal Not Applicable [facility] Comment on above: Result Comment: ADDITIONAL INFORMATION This test was developed and its performance characteristics determined by [facility] in a manner consistent with CLIA requirements. This test has not been cleared or approved by the U.S. Food and Drug Administration. Test Performed by: [facility] [place] [address] [place] [address] Building Services Technician: Rudolph Garcia Ph.D.; CLIA# [id number] Performed By: #### C [id number] #### [facility] [address] [place] [address] Ureaplasma urealyticum PCR-Barton Negative Normal Not Applicable [facility] Comment on above: Performed By: #### C [id number] #### [facility] [address] [place] [address] Gynecology Office/Clinic Not ramila 02-01-2025 Gynecology Office/Clinic Note Chief Complaint 49 y/o . Continued watery discharge, Positive for Ureaplasma on 01/06/25. History of Present Illness Pelvic Pain: No Abnormal Vaginal Discharge: Yes Abnormal Vaginal Bleeding: No Vaginal Dryness: No Vaginal Itch: No Vaginal Burning: Yes Vaginal Odor: No Sexually Active: Yes 02/01/25 08:07:00 49 y/o . Continued watery discharge, Positive for Ureaplasma on 01/06/25. Patient here with concerns of continued vaginal burning, irritation, and a thin clear vaginal discharge. Patient has been treated multiple times for several different types of infection. She has doctored with both our office and urgent care. Patient denies sexual intercourse her partner currently. She denies need for STI screening. She complains of constant vaginal burning. Review of patient's external prescription history shows she has recently taken a fluconazole, azithromycin, Cipro, levofloxacin, and metronidazole since 12/2024. 12/2024- + ureaplasma 08/24/2024 + enterococcus, neg GC/CHL, neg vaginal DNA 08/31/2024 negative cultures 07/22/2024 negative GC/CHL 07/19/2024 Positive Ureaplasma treated with Azithromycin Patient requests a refill of Drysol deodorant. 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 Additional Details Contraception Contraception TypeNone Review of Systems Ears, Nose, Throat Congestion: No Vertigo: No Sore throat: No Nasal drainage: No Cardio Respiratory Peripheral edema: No Heart Irregularity: No Chest Pain: No Shortness of Breath: No Gastrointestinal Bloating: No Reflux/heartburn: No Abdominal Pain: No Change in bowel habits: No Urinary Urinary Incontinence: No Urinary frequency: No Nocturia: No Urgency: No Painful urination: No Additional Details Pain Present Physical Exam Vitals & Measurements BP: 124/84 HT: 162 cm WT: 94.1 kg (Dosing) WT: 94.1 kg BMI: 35.86 Additional Vitals BP Position/Location: Sitting, Left arm General: Alert and oriented x 3. Well nourished. No acute distress. Abdomen: Soft, non-tender, non-distended. Normal bowel sounds and no masses appreciated. Musculoskeletal: Normal range of motion and strength. No tenderness or swelling noted. Skin: Skin is warm, dry and pink. No rashes or lesions. Neurologic: CN II-XII grossly intact. Psychiatric: Cooperative. Appropriate mood and affect. External Genitalia: Normal urethral meatus. No lesions. Vulvar skin intact. Genitourinary: Atrophic vaginal mucosa. Thin white vaginal discharge in the vault. Cultures taken and pending. Assessment/Plan 1. Atrophic vaginitis Cultures taken and pending. Will treat accordingly. Patient also counseled on atrophic vaginitis. Will start vaginal estrogen at bedtime x 2 weeks, then 1?2 nights weekly after that. Patient to continue her vaginal probiotic. She is to drink lots of fluids. Vulvar hygiene measures reviewed. Ordered: aluminum chloride hexahydrate topical, 1 marlon, Topical, HS (at bedtime), PRN, # 35 mL, 0 Refill(s), Pharmacy: [id number] estradiol topical, See Instructions, 1 g VAG HS (at bedtime) 2 x weekly as directed., # 42.5 g, 1 Refill(s), Pharmacy: [id number] Mycoplasma hominis, PCR-Barton Ureaplasma species, PCR-Barton Vaginal Panel DNA Medical Decision Making Chronic conditions NOT treated during this visit that affected my overall medical decision making: [] Treatment plans discussed but not opted for at this time: [] Prescribed medication that requires intensive monitoring for toxicity: [] I have reviewed the patient?s medication list for medication interactions/contraindica tions and/or for upcoming procedures: [yes or no] [...] Gest Age: 4 weeks Outcome: Sex: -- Problem List/Past Medical History Ongoing Encounter for gynecological examination (general) (routine) without abnormal findings Skin tag Vaginal burning Historical Autoimmune hepatitis Esophagitis Procedure/Surgical History T&A (1984) HydroAblation (2009) Left Knee Meniscus Repair (2013) Roe. TLH/BS on 02/04/16, Left Oophorectomy (02/04/2016) Medications azithromycin 500 mg oral tablet, See Instructions, 2 tabs Oral Day 1, then 1 tab oral day 2-4 Drysol 20% topical solution, 1 marlon, Topical, HS (at bedtime), PRN, 1 refills fluticasone 50 mcg/inh nasal spray, 16 g, SPRAY 2 SPRAYS INTO EACH NOSTRIL EVERY DAY oxyCODONE-acetaminophen 5 mg-325 mg oral tablet valACYclovir 500 mg (more content not included)... Normal [facility] [place] Trackon 02-01-2025 Cepheid MVP Swab # 1 Normal [facility] Comment on above: Performed By: #### C [id number] #### [place] [address] Specimens Received From BV OB [address] [facility] Comment on above: Performed By: #### C [id number] #### [place] [id number] Vaginal Panel DNAon 02-02-20 Bacterial Vaginosis Negative Normal Negative [facility] Comment on above: Performed By: #### C [id number] #### [place] [id number] Esthela glabrata/krusei Not detected Normal Not Detected [facility] Comment on above: Performed By: #### C [id number] #### [address] [place] [address] Esthela group Not detected Normal Not Detected [facility] Comment on above: Performed By: #### C [id number] #### [place] [id number] Trichomonas vaginalis Not detected Normal Not Detected [facility] Comment on above: Performed By: #### C [id number] #### [place] [address] No Panel Informationon 01-31 ACINETOBACTER BAUMANII 0 [facility] ACINETOBACTER BAUMANII Not detected [facility] ATOPOBIUM VAGINAE 0 [facility] ATOPOBIUM VAGINAE Not detected [facility] BVAB 2,3 (BACTERIAL VAGINOSIS ASSOCIATED BACTERIA 2, 3); MOBILUNCUS SPP 0 [facility] BVAB 2,3 (BACTERIAL VAGINOSIS ASSOCIATED BACTERIA 2, [...] GARDNERELLA VAGINALIS Not detected [facility] KLEBSIELLA PNEUMONIAE, OXYTOCA 0 [facility] [...] Not detected [facility] PSEUDOMONAS AERUGINOSA 0 [facility] PSEUDOMONAS AERUGINOSA Not detected [facility] [...] (GROUP A STREP) Not detected [facility] TRICHOMONAS VAGINALIS 0 [facility] TRICHOMONAS VAGINALIS Not detected [facility] UREAPLASMA PARVUM 0 [facility] UREAPLASMA PARVUM Not detected [facility] UREAPLASMA UREALYTICUM 0 [facility] UREAPLASMA UREALYTICUM Not detected [facility] Laboratory - Chemistry and C hemistry - challengeon 01-30-2025 Bilirubin Ql (U) Negative Negative [facility] Glucose [Mass/Vol] Negative Negative [facility] Ketones Ql (U) Negative Negative [facility] pH (U) 6 [pH] 5.0 - 6.0 [facility] Specific gravity (U) [Rel density] 1.005 1.001 - 1.035 [facility] Urobilinogen (U) [Mass/Vol] Negative 0.2 - 1.0 [facility] Laboratory - Hematology and Cell countson 01-30-2025 Hemoglobin Ql (U) Negative Negative [facility] Laboratory - Urinalysison Nitrite Ql (U) Negative Negative [facility] Protein Ql (U) Negative Negative [facility] No Panel Informationon 01-30 Interpretation and review of laboratory results Normal [facility] LEUKOCYTES Negative Negative [facility] No Panel Informationon 01-18 CHLAMYDIA TRACHOMATIS (URETHRITIS/DISCHARGE ) 0 [facility] CHLAMYDIA TRACHOMATIS (URETHRITIS/DISCHARGE ) Not detected [facility] HERPES SIMPLEX VIRUS 1 (URETHRITIS/DISCHARGE ) 0 [facility] HERPES SIMPLEX VIRUS 1 (URETHRITIS/DISCHARGE ) Not detected [facility] HERPES SIMPLEX VIRUS 2 (URETHRITIS/DISCHARGE ) 0 [facility] HERPES SIMPLEX VIRUS 2 (URETHRITIS/DISCHARGE ) Not detected [facility] Interpretation and review of laboratory results Abnormal [facility] MYCOPLASMA GENITALIUM (URETHRITIS/DISCHARGE ) 0 [facility] MYCOPLASMA GENITALIUM (URETHRITIS/DISCHARGE ) Not detected [facility] MYCOPLASMA HOMINIS (URETHRITIS/DISCHARGE ) 0 [facility] MYCOPLASMA HOMINIS (URETHRITIS/DISCHARGE ) Not detected [facility] NEISSERIA GONORRHOEAE (URETHRITIS/DISHCARGE ) 0 [facility] NEISSERIA GONORRHOEAE (URETHRITIS/DISHCARGE ) Not detected [facility] TRICHOMONAS VAGINALIS (URETHRITIS/DISCHARGE ) 0 [facility] TRICHOMONAS VAGINALIS (URETHRITIS/DISCHARGE ) Not detected [facility] UREAPLASMA PARVUM (URETHRITIS/DISCHARGE ) 29.574 Abnormal [facility] UREAPLASMA PARVUM (URETHRITIS/DISCHARGE ) Detected Abnormal [facility] UREAPLASMA UREALYTICUM (URETHRITIS/DISCHARGE ) 0 [facility] UREAPLASMA UREALYTICUM (URETHRITIS/DISCHARGE ) Not detected [facility] Laboratory - Chemistry and C hemistry - challengeon 01-16-2025 Bilirubin Ql (U) Negative Negative [facility] Glucose [Mass/Vol] Negative Negative [facility] Ketones Ql (U) Negative Negative [facility] pH (U) 5.5 [pH] 5.0 - 6.0 [facility] Specific gravity (U) [Rel density] 1.01 1.001 - 1.035 [facility] Urobilinogen (U) [Mass/Vol] Negative 0.2 - 1.0 [facility] Laboratory - Hematology and Cell countson 01-16-2025 Hemoglobin Ql (U) Negative Negative [facility] Laboratory - Urinalysison Nitrite Ql (U) Negative Negative [facility] Protein Ql (U) Negative Negative [facility] No Panel Informationon 01-16 Interpretation and review of laboratory results Normal [facility] LEUKOCYTES Negative Negative [facility] Ureaplasma species, PCR-Barton on 01-11-2025 Specimen Source (URRP)-Barton Vaginal Normal [facility] Comment on above: Performed By: #### C D:[id number] #### [facility] [address] [place] [address] Ureaplasma parvum PCR-Barton Positive Abnormal Not Applicable [facility] Comment on above: Result Comment: ADDITIONAL INFORMATION This test was developed and its performance characteristics determined by [facility] in a manner consistent with CLIA requirements. This test has not been cleared or approved by the U.S. Food and Drug Administration. Test Performed by: [facility] [place] [address] Building Services Technician: Rudolph Garcia Ph.D.; CLIA# [id number] Performed By: #### C D:[id number] #### [address] [address] Ureaplasma urealyticum PCR-Barton Negative Normal Not Applicable [facility] Comment on above: Performed By: #### C [id number] #### [address] [address] C Genion 01-09-2025 C Bety ----- Final Moderate Growth of Normal genital ovidio isolated . [facility] recommends the use of a vaginal DNA panel for the detection of DNA targets from anaerobic bacteria associated with bacterial vaginosis (BV), Esthela species associated with vulvovaginal candidiasis, and Trichomonas vaginalis in vaginal fluid specimens from patients with symptoms of vaginitis/vaginosis. Normal [facility] Comment on above: Performed By: #### G ENC #### [facility] [address] [place] [address] Chlam & GC, DNAon 01-09-2025 Chlamydia, DNA Negative Normal Negative [facility] Comment on above: Result Comment: The APTIMA [...] to the clinician. Performed By: #### C [id number] #### [facility] [address] [place] [address] Gonorrhea, DNA Negative Normal Negative [facility] Comment on above: Result Comment: The APTIMA [...] to the clinician. Performed By: #### C D:[id number] #### [facility] [address] [place] [address] Gynecology Office/Clinic Not ramila 01-06-2025 Gynecology Office/Clinic Note Chief Complaint Possible infection History of Present Illness Sexually Active: Yes 49 y/o Possible infection. On going vaginal/vulvar irritation and burning. History TLH, left ooph 2015. She has done the vaginal metrogel. She still has c/o vaginal odor and discharge. Her PCP started her on Flagyl and she is finishing it today. She is using a new soap. 08/24/2024 + enterococcus, neg GC/CHL, neg vaginal DNA 08/31/2024 negative cultures 07/22/2024 negative GC/CHL 07/19/2024 Positive Ureaplasma treated with Azithromycin Review of Systems Ears, Nose, Throat Congestion: No Vertigo: No Sore throat: No Nasal drainage: No Cardio Respiratory Peripheral edema: No Heart Irregularity: No Chest Pain: No Shortness of Breath: No Gastrointestinal Bloating: No Reflux/heartburn: No Abdominal Pain: No Change in bowel habits: No Urinary Urinary Incontinence: No Urinary frequency: No Nocturia: No Urgency: No Painful urination: No Physical Exam Vitals & Measurements BP: 128/84 HT: 162 cm WT: 90.8 kg WT: 90.8 kg (Dosing) BMI: 34.6 Additional Vitals BP Position/Location: Sitting, Right arm General: Alert and oriented, well nourished, no acute distress. Abdomen: Soft, non-tender, non-distended, normal bowel sounds, no masses. Neurologic: Awake, alert, and oriented X3, CN II-XII intact. Psychiatric: Cooperative, appropriate mood and affect. External Genitalia: Normal urethral meatus, no lesions, vulvar skin intact. Genitourinary: Normal vaginal mucosa, no lesions or abnormal discharge, No cystocele or rectocele. Assessment/Plan 1. Vaginal discharge Vaginal cultures done. Patient to call within one week if she has not been notified of results. Discussed vulvar hygiene: void scented soaps. Ordered: Culture Genital GC/Chlamydia DNA Ureaplasma species, PCR-Barton Vaginal Panel DNA Medical Decision Making Chronic conditions NOT treated during this visit that affected my overall medical decision making: [] Treatment plans discussed but not opted for at this time: [] Prescribed medication that requires intensive monitoring for toxicity: [] I have reviewed the patient?s medication list for medication interactions/contraindica tions and/or for upcoming procedures: [yes or no] Time Spent with the Patient I have personally spent [22] minutes on this date, directly related to [...] Gest Age: 4 weeks Outcome: Sex: -- Problem List/Past Medical History Ongoing Encounter for gynecological examination (general) (routine) without abnormal findings Skin tag Vaginal burning Historical Autoimmune hepatitis Esophagitis Procedure/Surgical History T&A (1984) HydroAblation (2009) Left Knee Meniscus Repair (2013) Roe. TLH/BS on 02/04/16, Left Oophorectomy (02/04/2016) Medications azithromycin 500 mg oral tablet, See Instructions, 2 tabs Oral Day 1, then 1 tab oral day 2-4 Drysol 20% topical solution, 1 marlon, Topical, HS (at bedtime), PRN, 1 refills fluticasone 50 mcg/inh nasal spray, 16 g, SPRAY 2 SPRAYS INTO EACH NOSTRIL EVERY DAY oxyCODONE-acetaminophen 5 mg-325 mg oral tablet valACYclovir 500 mg oral tablet, 500 mg= 1 tabs, Oral, Daily, 3 refills Xerac AC 6.25% solution, See Instructions, 6 refills, apply underarms qd as directed. Allergies Phenergan (Convulsions) contrast media (iodine-based) (Heart racing) doxycycline (Vomiting) Social History Alcohol Never Nutrition/Health Regular, Caffeine intake amount: No caffeine. Sexual Sexually active: Yes. Substance Abuse Denies All Tobacco Never (less than 100 in lifetime) Use:. Family History COPD: Mother. Depression: Mother, Father and Child. Diabetes mellitus: Father and Grandmother (P). Heart attack: Father and Grandfather (P). Hypertension: Father. Prostate cancer...: Father. Stroke: Father. Family Member(s) Relationship: Grandfather (P), Age: 39 Years Electronically signed by Wil Crain PA-C 01/06/25 08:06 EDT Electronically signed by Indu Leon 01/05/2025 16:49 EDT [facility] [place] Trackon 01-06-2025 Cepheid MVP Swab # 1 [place] Comment on above: Performed By: #### C [id number] #### [facility] [address] [place] [address] Specimens Received From OB S Main [facility] Comment on above: Performed By: #### C D:[id number] #### [facility] [address] [place] [address] Vaginal Panel DNAon 01-07-20 Bacterial Vaginosis Negative Normal Negative [facility] Comment on above: Performed By: #### C [id number] #### [address] [address] Esthela glabrata/krusei Not detected Normal Not Detected [facility] Comment on above: Performed By: #### C [id number] #### [address] [address] Esthela group Not detected Normal Not Detected [facility] Comment on above: Performed By: #### C [id number] #### [address] [address] Trichomonas vaginalis Not detected Normal Not Detected [facility] Comment on above: Performed By: #### C [id number] #### [address] [address] Ferritinon 08-29-2024 Ferritin [Mass/Vol] 51.3 ng/mL Normal 11.0-306.8 [facility] Comment on above: Order Comment: PT VE RAFIED THESE TEST ARE DUE NOW NOT 02/23/25 Performed By: #### H S TROP, YAMZIN, LIPASE, PT, HEPATIC, BMP, MG, CBC #### [facility] [address] [place] [id number] [facility] Iron and TIBC Profileon 08-14 % Iron Saturation 19.5 % Low 20-50 [facility] Comment on above: Order Comment: PT VE RAFIED THESE TEST ARE DUE NOW NOT 02/23/25 Performed By: #### H S TROP, YAZMIN, LIPASE, PT, HEPATIC, BMP, MG, CBC #### [facility] [address] [place] [id number] [facility] Iron [Mass/Vol] 76 ug/dL Normal 50-212 [facility] Comment on above: Order Comment: PT VE RAFIED THESE TEST ARE DUE NOW NOT 02/23/25 Performed By: #### H S TROP, YAZMIN, LIPASE, PT, HEPATIC, BMP, MG, CBC #### [address] Total Iron Binding Capacity 389 ug/dL Normal 255-450 [facility] Comment on above: Order Comment: PT VE RAFIED THESE TEST ARE DUE NOW NOT 02/23/25 Performed By: #### H S TROP, YAZMIN, LIPASE, PT, HEPATIC, BMP, MG, CBC #### [address] Transferrin [Mass/Vol] 278 mg/dL Normal 203-362 [facility] Comment on above: Order Comment: PT VE RAFIED THESE TEST ARE DUE NOW NOT 02/23/25 Performed By: #### H S TROP, YAZMIN, LIPASE, PT, HEPATIC, BMP, MG, CBC #### [address] Thyroid Stim Hormone w/Rflxo n 08-29-2024 Thyroid Stim Hormone w/Rflx 3.94 u[iU]/mL Normal 0.45-5.33 [facility] Comment on above: Order Comment: PT VE RAFIED THESE TEST ARE DUE NOW NOT 02/23/25 Result Comment: PERF ORMED BY: [place] [address] PATHOLOGIST RN [facility] M[facility]ER VO M.D. Performed By: #### H S TROP, YAZMIN, LIPASE, PT, HEPATIC, BMP, MG, CBC #### [address] C Genion 08-28-2024 C Bety ----- Final Light Growth of Normal genital ovidio isolated and Light Growth of Enterococcus faecalis isolated This organism from this source may or may not be significant and is reported due to the relative number found on this culture. Consider the possibility of colonization or transient presence of the organism. ORGANISM [employer] SUSCEPTIBILITY ORGANISM ID: 1 ANTIBIOTIC INTERPRETATION HARSH STATUS POS Enterococcus faecalis Ampicillin S <=2 V Daptomycin S 4 V Gentamicin synergy S Syn-S V Linezolid S 2 V Streptomycin synergy S Syn-S V Vancomycin S 1 V Normal [facility] Comment on above: Performed By: #### G ENC #### [facility] (DEFAULT) [address] [place] [address] [place] [id number] Chlam & GC, DNAon 08-26-2024 Chlamydia, DNA Negative Normal Negative [facility] Comment on above: Result Comment: The APTIMA [...] to the clinician. Performed By: #### C [id number] #### [address] [address] Gonorrhea, DNA Negative Normal Negative [facility] Comment on above: Result Comment: The APTIMA [...] to the clinician. Performed By: #### C [id number] #### [address] [address] [place] Trackon 08-25-2024 Cepheid MVP Swab # 1 Normal [facility] Comment on above: Performed By: #### C [id number] #### [facility] [address] [place] [address] Specimens Received From OB East Normal [facility] Comment on above: Performed By: #### C [id number] #### [facility] [address] [place] [address] Vaginal Panel DNAon 08-25-20 Bacterial Vaginosis Negative Normal Negative [facility] Comment on above: Performed By: #### C [id number] #### [address] [address] Esthela glabrata/krusei Not detected Normal Not Detected [facility] Comment on above: Performed By: #### C [id number] #### [address] [address] Esthela group Not detected Normal Not Detected [facility] Comment on above: Performed By: #### C [id number] #### [address] [address] Trichomonas vaginalis Not detected Normal Not Detected [facility] Comment on above: Performed By: #### C [id number] #### [address] [address] Gynecology Office/Clinic Not ramila 08-24-2024 Gynecology Office/Clinic Note Chief Complaint Possible infection History of Present Illness Abnormal Vaginal Discharge: No Vaginal Dryness: No Vaginal Itch: No Vaginal Burning: Yes Sexually Active: Yes 08/24/24 15:26:00 48 y/o POssible infection. C/o vaginal/vulvar burning for the last month. Patient here with concerns of possible vaginal infection due to continued vaginal burning. Patient used azithromycin for Ureaplasma infection that was found 07/22/2024. She used 2 days of MetroGel, but discontinued this after her vaginal DNA culture was negative for BV. Since that time, patient continues to notice vaginal burning off-and-on. She also admits that she had a new sexual partner and would like to be tested for chlamydia, gonorrhea, and trichomonas. 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 Additional Details Contraception Contraception TypeNone Review of Systems Ears, Nose, Throat Congestion: No Vertigo: No Sore throat: No Nasal drainage: No Cardio Respiratory Peripheral edema: No Heart Irregularity: No Chest Pain: No Shortness of Breath: No Gastrointestinal Bloating: No Reflux/heartburn: No Abdominal Pain: No Change in bowel habits: No Urinary Urinary Incontinence: No Urinary frequency: No Nocturia: No Urgency: No Painful urination: No Additional Details Pain Present Physical Exam Vitals & Measurements BP: 118/78 HT: 162 cm WT: 88.5 kg WT: 88.5 kg (Dosing) BMI: 33.72 General: Alert and oriented x 3. Well nourished. No acute distress. Neurologic: CN II-XII grossly intact. Psychiatric: Cooperative. Appropriate mood and affect. External Genitalia: Normal urethral meatus. No lesions. Vulvar skin intact. small epidermal inclusion cyst of L buttock near inferior labia. Using gentle manipulation, the cyst is drained of thick, white, keratinized material. Patient has no pain during this. She is reassured. Genitourinary: Normal vaginal mucosa. No lesions or abnormal discharge. There is no amount of thick white discharge consistent with leftover MetroGel in the vaginal vault. This is removed. Rest of exam looks normal. Chlamydia/gonorrhea, and vaginal DNA swab was taken. Assessment/Plan 1. Vaginal burning Ordered: Culture Genital GC/Chlamydia DNA Vaginal Panel DNA 2. Vaginal discharge Ordered: Culture Genital GC/Chlamydia DNA Vaginal Panel DNA Medical Decision Making Chronic conditions NOT treated during this visit that affected my overall medical decision making: [] Treatment plans discussed but not opted for at this time: [] Prescribed medication that requires intensive monitoring for toxicity: [] I have reviewed the patient?s medication list for medication interactions/contraindica tions and/or for upcoming procedures: [yes or no] [...] Mammogram Digital Screen Bilat +Ravinder 02/11/24 16:01:00 #[id number] - MG MAMMOGRAM DIGITAL SCREEN BILAT + RAVINDER BILATERAL DIGITAL SCREENING MAMMOGRAM 3D/2D WITH CAD: 02/11/2024 CLINICAL: Screening. Comparison is made to exams dated: 12/27/2021 mammogram, 01/13/2023 mammogram, and 12/25/2020 mammogram - [facility]. The breasts are heterogeneously dense, which may [...] lack of specific imaging findings. 10-15% of (more content not included)... Normal [facility] Alanine aminotransferase [En zymatic activity/volume] in Serum or PlasmaOrdered By: Valerio Zheng on 08-01-2024 ALT [Catalytic activity/Vol] Alanine aminotransferase [Enzymatic activity/volume] in Serum or Plasma [facility] Albumin [Mass/volume] in Ser um or Plasma by Bromocresol green (BCG) dye binding methoOrdered By: Valerio Zheng on 08-01-2024 Albumin BCG dye [Mass/Vol] Albumin [Mass/volume] in Serum or Plasma by Bromocresol green (BCG) dye binding metho 3.5-5.7 [facility] Alkaline phosphatase [Enzyma tic activity/volume] in Serum or PlasmaOrdered By: Valerio Zheng on 08-01-2024 ALP [Catalytic activity/Vol] Alkaline phosphatase [Enzymatic activity/volume] in Serum or Plasma 34-104 [facility] Amylaseon 08-01-2024 Amylase [Catalytic activity/Vol] 29 U/L Normal 29-103 [facility] Comment on above: Performed By: #### H S TROP, YAZMIN, LIPASE, PT, HEPATIC, BMP, MG, CBC #### [facility] [address] Amylase [Enzymatic activity/ volume] in Serum or PlasmaOrdered By: Valerio Zheng on 08-01-2024 Amylase [Catalytic activity/Vol] Amylase [Enzymatic activity/volume] in Serum or Plasma 29-103 [facility] Aspartate aminotransferase [ Enzymatic activity/volume] in Serum or PlasmaOrdered By: Valerio Zheng on 08-01-2024 AST [Catalytic activity/Vol] Aspartate aminotransferase [Enzymatic activity/volume] in Serum or Plasma Low 13-39 [facility] Basic Metabolic Panelon 07-15 Anion gap [Moles/Vol] 7.7 mmol/L Normal 6.0-15.0 [facility] Comment on above: Performed By: #### H S TROP, YAZMIN, LIPASE, PT, HEPATIC, BMP, MG, CBC #### [facility] [address] Calcium [Mass/Vol] 8.5 mg/dL Low 8.6-10.3 [facility] Comment on above: Performed By: #### H S TROP, YAZMIN, LIPASE, PT, HEPATIC, BMP, MG, CBC #### [facility] [address] Chloride [Moles/Vol] 110 mmol/L High 98-107 [facility] Comment on above: Performed By: #### H S TROP, YAZMIN, LIPASE, PT, HEPATIC, BMP, MG, CBC #### [address] CO2 [Moles/Vol] 27.0 mmol/L Normal 21.0-31.0 [facility] Comment on above: Performed By: #### H S TROP, YAZMIN, LIPASE, PT, HEPATIC, BMP, MG, CBC #### [address] Creatinine [Mass/Vol] 0.77 mg/dL Normal 0.60-1.20 [facility] Comment on above: Performed By: #### H S TROP, YAZMIN, LIPASE, PT, HEPATIC, BMP, MG, CBC #### [address] Creatinine Clr Calc Pharmacy 98.12 Normal [facility] Comment on above: Performed By: #### H S TROP, YAZMIN, LIPASE, PT, HEPATIC, BMP, MG, CBC #### [address] GFR/1.73 sq M.predicted MDRD (S/P/Bld) [Vol rate/Area] mL/min/{1.73_m2} Normal [facility] Comment on above: Performed By: #### H S TROP, YAZMIN, LIPASE, PT, HEPATIC, BMP, MG, CBC #### [address] Glucose [Mass/Vol] 77 mg/dL Normal 70-100 [facility] Comment on above: Result Comment: [place] Glucose Reference Range is dependent on time and content of last meal. Glucose of more than 200 mg/dL in a nonstressed, ambulatory subject supports the diagnosis of Diabetes Mellitus. ADA recommended reference range Performed By: #### H S TROP, YAZMIN, LIPASE, PT, HEPATIC, BMP, MG, CBC #### [address] Potassium [Moles/Vol] 4.7 mmol/L Normal 3.5-5.1 [facility] Comment on above: Performed By: #### H S TROP, YAZMIN, LIPASE, PT, HEPATIC, BMP, MG, CBC #### [address] [place] [address] [place] Sodium [Moles/Vol] 140 mmol/L Normal 136-145 [facility] Comment on above: Performed By: #### H S TROP, YAZMIN, LIPASE, PT, HEPATIC, BMP, MG, CBC #### [facility] [address] Urea nitrogen [Mass/Vol] 8 mg/dL Normal 7-25 [facility] Comment on above: Performed By: #### H S TROP, YAZMIN, LIPASE, PT, HEPATIC, BMP, MG, CBC #### [facility] [address] Basophils Auto (Bld) [#/Vol] Ordered By: Valerio Zheng on 08-01-2024 Basophils (Bld) [#/Vol] Automated basophil count 0.0-0.2 [facility] Basophils/100 WBC Auto (Bld) Ordered By: Valerio Zheng on 08-01-2024 Basophils/100 WBC (Bld) Automated basophil % . [facility] Bilirubin.direct [Mass/volum e] in Serum or PlasmaOrdered By: Valerio Zheng on 08-01-2024 Bilirubin.direct [Mass/Vol] Bilirubin.direct [Mass/volume] in Serum or Plasma 0.03-0.18 [facility] Bilirubin.total [Mass/volume ] in Serum or PlasmaOrdered By: Valerio Zheng on 08-01-2024 Bilirubin [Mass/Vol] Bilirubin.total [Mass/volume] in Serum or Plasma 0.3-1.0 [facility] Calcium [Mass/volume] in Ser um or PlasmaOrdered By: Valerio Zheng on 08-01-2024 Calcium [Mass/Vol] Calcium [Mass/volume ] in Serum or Plasma Low 8.6-10.3 [facility] Carbon dioxide, total [Moles /volume] in Serum or PlasmaOrdered By: Valerio Zheng on 08-01-2024 CO2 [Moles/Vol] Carbon dioxide, tota l [Moles/volume] in Serum or Plasma 21.0-31.0 [facility] Chloride [Moles/volume] in S magda or PlasmaOrdered By: Valerio Zheng on 08-01-2024 Chloride [Moles/Vol] Chloride [Moles/vol ume] in Serum or Plasma High 98-107 [facility] Complete Blood Count Auto Di ffon 08-01-2024 Basophils (Bld) [#/Vol] 0.0 10*3/uL Normal 0.0-0.2 [facility] Comment on above: Result Comment: PERF ORMED BY: [place] [address] PATHOLOGIST RN PERITONEAL DIALYSIS MILLER VO M.D. Performed By: #### H S TROP, YAZMIN, LIPASE, PT, HEPATIC, BMP, MG, CBC #### [address] Basophils/100 WBC (Bld) 0.4 % Normal . [facility] Comment on above: Performed By: #### H S TROP, YAZMIN, LIPASE, PT, HEPATIC, BMP, MG, CBC #### [address] Eosinophils (Bld) [#/Vol] 0.3 10*3/uL Normal 0.0-0.45 [facility] Comment on above: Performed By: #### H S TROP, YAZMIN, LIPASE, PT, HEPATIC, BMP, MG, CBC #### [address] Eosinophils/100 WBC (Bld) 4.5 % Normal . [facility] Comment on above: Performed By: #### H S TROP, YAZMIN, LIPASE, PT, HEPATIC, BMP, MG, CBC #### [address] Erythrocyte distribution width (RBC) [Ratio] 13.3 % Normal 11.9-15.3 [facility] Comment on above: Performed By: #### H S TROP, YAZMIN, LIPASE, PT, HEPATIC, BMP, MG, CBC #### [address] Hematocrit (Bld) [Volume fraction] 38.5 % Normal 34.0-46.4 [facility] Comment on above: Performed By: #### H S TROP, YAZMIN, LIPASE, PT, HEPATIC, BMP, MG, CBC #### [address] Hemoglobin (Bld) [Mass/Vol] 13.0 g/dL Normal 11.8-15.4 [facility] Comment on above: Performed By: #### H S TROP, YAZMIN, LIPASE, PT, HEPATIC, BMP, MG, CBC #### [address] Lymphocytes (Bld) [#/Vol] 3.3 10*3/uL Normal 1.00-4.8 [facility] Comment on above: Performed By: #### H S TROP, YAZMIN, LIPASE, PT, HEPATIC, BMP, MG, CBC #### [address] Lymphocytes/100 WBC (Bld) 52.7 % Normal . [facility] Comment on above: Performed By: #### H S TROP, YAZMIN, LIPASE, PT, HEPATIC, BMP, MG, CBC #### [address] MCH (RBC) [Entitic mass] 30.0 pg Normal 24.7-34.3 [facility] Comment on above: Performed By: #### H S TROP, YAZMIN, LIPASE, PT, HEPATIC, BMP, MG, CBC #### [address] MCV (RBC) [Entitic vol] 88.9 fL Normal 80-100 [facility] Comment on above: Performed By: #### H S TROP, YAZMIN, LIPASE, PT, HEPATIC, BMP, MG, CBC #### [address] Mean Corpuscular HGB Conc 33.7 g/dL Normal 32.0-35.0 [facility] Comment on above: Performed By: #### H S TROP, YAZMIN, LIPASE, PT, HEPATIC, BMP, MG, CBC #### [address] Monocytes (Bld) [#/Vol] 0.5 10*3/uL Normal 0.0-0.8 [facility] Comment on above: Performed By: #### H S TROP, YAZMIN, LIPASE, PT, HEPATIC, BMP, MG, CBC #### [address] Monocytes/100 WBC (Bld) 8.2 % Normal . [facility] Comment on above: Performed By: #### H S TROP, YAZMIN, LIPASE, PT, HEPATIC, BMP, MG, CBC #### [address] Neutrophils (Bld) [#/Vol] 2.1 10*3/uL Normal 1.8-7.7 [facility] Comment on above: Performed By: #### H S TROP, YAZMIN, LIPASE, PT, HEPATIC, BMP, MG, CBC #### [address] Neutrophils/100 WBC (Bld) 34.2 % Normal . [facility] Comment on above: Performed By: #### H S TROP, YAZMIN, LIPASE, PT, HEPATIC, BMP, MG, CBC #### [address] NRBC% 0.2 /100{WBC} Normal 0-0.5 [facility] Comment on above: Performed By: #### H S TROP, YAZMIN, LIPASE, PT, HEPATIC, BMP, MG, CBC #### [address] Platelet mean volume (Bld) [Entitic vol] 8.6 fL Normal 6.3-10.7 [facility] Comment on above: Performed By: #### H S TROP, YAZMIN, LIPASE, PT, HEPATIC, BMP, MG, CBC #### [address] Platelets (Bld) [#/Vol] 215 10*3/uL Normal 150-450 [facility] Comment on above: Performed By: #### H S TROP, YAZMIN, LIPASE, PT, HEPATIC, BMP, MG, CBC #### [facility] [address] RBC (Bld) [#/Vol] 4.33 10*6/uL Normal 3.60-5.00 [facility] Comment on above: Performed By: #### H S TROP, YAZMIN, LIPASE, PT, HEPATIC, BMP, MG, CBC #### [facility] [address] WBC (Bld) [#/Vol] 6.3 10*3/uL Normal 3.8-11.6 [facility] Comment on above: Performed By: #### H S TROP, YAZMIN, LIPASE, PT, HEPATIC, BMP, MG, CBC #### [facility] [address] Creatinine [Mass/volume] in Serum or PlasmaOrdered By: Valerio Zheng on 08-01-2024 Creatinine [Mass/Vol] Creatinine [Mass/v olume] in Serum or Plasma 0.60-1.20 [facility] Eosinophils Auto (Bld) [#/Vo l]Ordered By: Valerio Zheng on 08-01-2024 Eosinophils (Bld) [#/Vol] Automated eosinophil count 0.0-0.45 [facility] Eosinophils/100 WBC Auto (Bl d)Ordered By: Valerio Zheng on 08-01-2024 Eosinophils/100 WBC (Bld) Automated eosinophil % . [facility] Erythrocyte distribution wid th Auto (RBC) [Ratio]Ordered By: Valerio Zheng on 08-01-2024 Erythrocyte distribution width (RBC) [Ratio] Erythrocyte distribution width [Ratio] by Automated count 11.9-15.3 [facility] Globulin Calc (S) [Mass/Vol] Ordered By: Valerio Zheng on 08-01-2024 Globulin (S) [Mass/Vol] Serum globulin measurement by calculation (mass/volume) [facility] Glucose [Mass/volume] in Ser um or PlasmaOrdered By: Valerio Zheng on 08-01-2024 Glucose [Mass/Vol] Glucose [Mass/volume ] in Serum or Plasma 70-100 [facility] Comment on above: ADA recommended refe rence rangeRandom Glucose Reference Range is dependent on time and content of last meal. Glucose of more than 200 mg/dL in a nonstressed, ambulatory subject supports the diagnosis of Diabetes Mellitus. Hematocrit Auto (Bld) [Volum e fraction]Ordered By: Valerio Zheng on 08-01-2024 Hematocrit (Bld) [Volume fraction] Hematocrit [Volume Fraction] of Blood by Automated count 34.0-46.4 [facility] Hemoglobin [Mass/volume] in BloodOrdered By: Valerio Zheng on 08-01-2024 Hemoglobin (Bld) [Mass/Vol] Hemoglobin [Mass/volume] in Blood 11.8-15.4 [facility] Hepatic Panelon 08-01-2024 Albumin [Mass/Vol] 3.5 g/dL Normal 3.5-5.7 [facility] Comment on above: Performed By: #### H S TROP, YAZMIN, LIPASE, PT, HEPATIC, BMP, MG, CBC #### [facility] [address] [place] [address] [place] Albumin/Globulin [Mass ratio] 1.8 {ratio} Normal [facility] Comment on above: Performed By: #### H S TROP, YAZMIN, LIPASE, PT, HEPATIC, BMP, MG, CBC #### [facility] [address] [place] [id number] [place] ALP [Catalytic activity/Vol] 70 U/L Normal 34-104 [facility] Comment on above: Performed By: #### H S TROP, YAZMIN, LIPASE, PT, HEPATIC, BMP, MG, CBC #### [facility] [address] [place] [id number] [place] ALT [Catalytic activity/Vol] 8 U/L Normal 7-52 [facility] Comment on above: Performed By: #### H S TROP, YAZMIN, LIPASE, PT, HEPATIC, BMP, MG, CBC #### [facility] [address] [place] [id number] [place] AST [Catalytic activity/Vol] 9 U/L Low 13-39 [facility] Comment on above: Performed By: #### H S TROP, YAZMIN, LIPASE, PT, HEPATIC, BMP, MG, CBC #### [address] Bilirubin [Mass/Vol] 0.7 mg/dL Normal 0.3-1.0 [facility] Comment on above: Performed By: #### H S TROP, YAZMIN, LIPASE, PT, HEPATIC, BMP, MG, CBC #### [address] Bilirubin,Indirect 0.6 mg/dL Normal [facility] Comment on above: Performed By: #### H S TROP, YAZMIN, LIPASE, PT, HEPATIC, BMP, MG, CBC #### [address] Bilirubin.indirect [Mass/Vol] 0.10 mg/dL Normal 0.03-0.18 [facility] Comment on above: Performed By: #### H S TROP, YAZMIN, LIPASE, PT, HEPATIC, BMP, MG, CBC #### [address] Globulin (S) [Mass/Vol] 1.9 g/dL Normal [facility] Comment on above: Performed By: #### H S TROP, YAZMIN, LIPASE, PT, HEPATIC, BMP, MG, CBC #### [address] Protein [Mass/Vol] 5.4 g/dL Low 6.4-8.9 [facility] Comment on above: Performed By: #### H S TROP, YAZMIN, LIPASE, PT, HEPATIC, BMP, MG, CBC #### [address] 08-01-2024 L ----- Specimen: [id number] Received: 08/01/24 Status: FELIPE Hendersondebra Num: [id number] Spec Type: Surgical Subm Dr: Bowen Lozano MD Tissues: A GASTRIC FOR HP (GASTRIC BX R/O H PYLORI) B Esophagus Biopsy (ESOPHAGUS BX R/O EOE) Procedures: HE/4, Gross/Micro L4/2, H PYLORI Age/ Patient Sex Location Account Attending Physician Trudy Wilder 48/F 3T [id number] Spenser Yarbrough MD SPEC NUM: [id number] RECD: 08/01/24 STATUS: FELIPE TOMKEA NUM: [id number] CE: 08/01/24-[address]: Bowen Lozano MD ENTERED: 08/01/24 [facility] DR: SPEC TYPE: Surgical DEPT: S ENTERED BY: [id number] RECV BY: [id number] ORDERED: HE/4, Gross/Micro L4/2, H PYLORI ORDERED: HE/4, Gross/Micro L4/2, H PYLORI Pathological Diagnosis A. Stomach, Biopsy: Reactive/ Chemical Gastropathy. - H. Pylori Immunostain Is Negative For H. Pylori Organisms. B. Esophagus, biopsy: Chronic esophagitis with mild increase in intraepithelial eosinophils. Eosinophils average 5?10 per high-power field. Clinical Information Dyspepsia, part 1 rule out H. pylori, part to rule out eosinophilic esophagitis Gross Description Part A is received in formalin labeled with the patients name, date of , and gastric BX are 2 lema-steel, focally erythematous, friable, 0.3 and 0.4 cm in greatest dimension tissue bits. The specimen is entirely submitted in a single cassette. (1, ns, [id number] A) Part B is received in formalin labeled with the patients name, date of , and esophagus BX are 2 pale steel, focally erythematous, feathery, 0.2 and 0.4 cm in greatest dimension tissue bits. The specimen is entirely submitted in a single cassette. (1, ns, [id number] B) Specimen: [id number] Received: 08/01/24 Status: FELIPE Barron Num: [id number] Spec Type: Surgical Subm Dr: Bowen Lozano MD Tissues: A GASTRIC FOR HP (GASTRIC BX R/O H PYLORI) B Esophagus Biopsy (ESOPHAGUS BX R/O EOE) Procedures: HE/4, Gross/Micro L4/2, H PYLORI Patient: Trudy Wilder [id number] (Continued) Specimen: [id number] Received: 08/01/24 (Continued) Signed (signature on file) Miller Vo MD 08/02/24 1430 Specimen: [id number] Received: 08/01/24 Status: FELIPE Tomeka Num: [id number] Spec Type: Surgical Subm Dr: Bowen Lozano MD Tissues: A GASTRIC FOR HP (GASTRIC BX R/O H PYLORI) B Esophagus Biopsy (ESOPHAGUS BX R/O EOE) Procedures: HE/4, Gross/Micro L4/2, H PYLORI Patient: Trudy Wilder [id number] (Continued) Specimen: [id number] Received: 08/01/24 (Continued) CPT Codes [id number] Specimen: [id number] Received: 08/01/24 Status: FELIPE Barron Num: [id number] Spec Type: Surgical Subm Dr: Bowen Lozano MD Tissues: A GASTRIC FOR HP (GASTRIC BX R/O H PYLORI) B Esophagus Biopsy (ESOPHAGUS BX R/O EOE) Procedures: HE/4, Gross/Micro L4/2, H PYLORI Patient: Trudy Wilder [id number] (Continued) Signed (signature on file) Miller Vo MD 08/02/24 1430 Normal [facility] Leukocytes [#/volume] correc kofi for nucleated erythrocytes in Blood by Automated counOrdered By: Valerio Zheng on 08-01-2024 WBC corrected for nucl RBC Auto (Bld) [#/Vol] Leukocytes [#/volume] corrected for nucleated erythrocytes in Blood by Automated coun 3.8-11.6 [facility] Lipaseon 08-01-2024 Lipase [Catalytic activity/Vol] 25.0 U/L Normal 11.0-82.0 [facility] Comment on above: Result Comment: PERF ORMED BY: [facility] [address] [place] [address] PATHOLOGIST RN PERITONEAL DIALYSIS MILLER VO M.D. Performed By: #### H S TROP, YAZMIN, LIPASE, PT, HEPATIC, BMP, MG, CBC #### [facility] [address] Lipase [Enzymatic activity/v olume] in Serum or PlasmaOrdered By: Valerio Zheng on 08-01-2024 Lipase [Catalytic activity/Vol] Lipase [Enzymatic activity/volume] in Serum or Plasma 11.0-82.0 [facility] Lymphocytes Auto (Bld) [#/Vo l]Ordered By: Valerio Zheng on 08-01-2024 Lymphocytes (Bld) [#/Vol] Lymphocytes [#/volume] in Blood by Automated count 1.00-4.8 [facility] Lymphocytes/100 WBC Auto (Bl d)Ordered By: Valerio Zheng on 08-01-2024 Lymphocytes/100 WBC (Bld) Lymphocytes/100 leukocytes in Blood by Automated count . [facility] MCH Auto (RBC) [Entitic mass ]Ordered By: Valerio Zheng on 08-01-2024 MCH (RBC) [Entitic mass] MCH [Entitic mass] by Automated count 24.7-34.3 [facility] MCHC Auto (RBC) [Mass/Vol]Or dered By: Valerio Zheng on 08-01-2024 MCHC (RBC) [Mass/Vol] MCHC [Mass/volume] by Automated count 32.0-35.0 [facility] MCV Auto (RBC) [Entitic vol] Ordered By: Valerio Zheng on 08-01-2024 MCV (RBC) [Entitic vol] MCV [Entitic volume] by Automated count 80-100 [facility] Magnesiumon 08-01-2024 Magnesium [Mass/Vol] 2.4 mg/dL Normal 1.9-2.7 [facility] Comment on above: Performed By: #### H S TROP, YAZMIN, LIPASE, PT, HEPATIC, BMP, MG, CBC #### [address] Magnesium [Mass/volume] in S magda or PlasmaOrdered By: Valerio Zheng on 08-01-2024 Magnesium [Mass/Vol] Magnesium [Mass/vol ume] in Serum or Plasma 1.9-2.7 [facility] Monocytes Auto (Bld) [#/Vol] Ordered By: Valerio Zheng on 08-01-2024 Monocytes (Bld) [#/Vol] Automated blood monocyte count 0.0-0.8 [facility] Monocytes/100 WBC Auto (Bld) Ordered By: Valerio Zheng on 08-01-2024 Monocytes/100 WBC (Bld) Automated monocyte % . [facility] Neutrophils Auto (Bld) [#/Vo l]Ordered By: Valerio Zheng on 08-01-2024 Neutrophils (Bld) [#/Vol] Neutrophils [#/volume] in Blood by Automated count 1.8-7.7 [facility] Neutrophils/100 WBC Auto (Bl d)Ordered By: Valerio Zheng on 08-01-2024 Neutrophils/100 WBC (Bld) Automated neutrophil % . [facility] No Panel InformationOrdered By: Valerio Zheng on 08-01-2024 Estimated GFR (CKD-EPI) > 60.0 mL/Min [facility] Creatinine Clearance (Chem 98.12 [facility] Nucleated erythrocytes [Pres ence] in Blood by Automated countOrdered By: Valerio Zheng on 08-01-2024 Nucleated RBC Auto Ql (Bld) Nucleated erythrocytes [Presence] in Blood by Automated count 0-0.5 [facility] Platelet mean volume Auto (B ld) [Entitic vol]Ordered By: Valerio Zheng on 08-01-2024 Platelet mean volume (Bld) [Entitic vol] Platelet mean volume [Entitic volume] in Blood by Automated count 6.3-10.7 [facility] Platelets Auto (Bld) [#/Vol] Ordered By: Valerio Zheng on 08-01-2024 Platelets (Bld) [#/Vol] Platelets [#/volume] in Blood by Automated count 150-450 [facility] Potassium [Moles/volume] in Serum or PlasmaOrdered By: Valerio Zheng on 08-01-2024 Potassium [Moles/Vol] Potassium [Moles/v olume] in Serum or Plasma 3.5-5.1 [facility] Protein [Mass/volume] in Ser um or PlasmaOrdered By: Valerio Zheng on 08-01-2024 Protein [Mass/Vol] Protein [Mass/volume ] in Serum or Plasma Low 6.4-8.9 [facility] RBC Auto (Bld) [#/Vol]Ordere d By: Valerio Zheng on 08-01-2024 RBC (Bld) [#/Vol] Erythrocytes [#/volu me] in Blood by Automated count 3.60-5.00 [facility] Serum or plasma albumin/glob ulin mass ratioOrdered By: Valerio Zheng on 08-01-2024 Albumin/Globulin [Mass ratio] Serum or plasma albumin/globulin mass ratio [facility] Serum or plasma anion gap de terminationOrdered By: Valerio Zheng on 08-01-2024 Anion gap [Moles/Vol] Serum or plasma an ion gap determination 6.0-15.0 [facility] Serum or plasma non-glucuron idated bilirubin measurement (mass/volume)Ordered By: Valerio Zheng on 08-01-2024 Bilirubin.indirect [Mass/Vol] Serum or plasma non-glucuronidated bilirubin measurement (mass/volume) [facility] Sodium [Moles/volume] in Ser um or PlasmaOrdered By: Valerio Zheng on 08-01-2024 Sodium [Moles/Vol] Sodium [Moles/volume ] in Serum or Plasma 136-145 [facility] Urea nitrogen [Mass/volume] in Serum or PlasmaOrdered By: Valerio Zheng on 08-01-2024 Urea nitrogen [Mass/Vol] Urea nitrogen [Mass/volume] in Serum or Plasma 7-25 [facility] WBC Auto (Bld) [#/Vol]Ordere d By: Valeroi Zheng on 08-01-2024 WBC (Bld) [#/Vol] Leukocytes [#/volume ] in Blood by Automated count 3.8-11.6 [facility] Alanine aminotransferase [En zymatic activity/volume] in Serum or PlasmaOrdered By: Catie Flores on 07-31-2024 ALT [Catalytic activity/Vol] Alanine aminotransferase [Enzymatic activity/volume] in Serum or Plasma 7-52 [facility] Albumin [Mass/volume] in Ser um or Plasma by Bromocresol green (BCG) dye binding methoOrdered By: Catie Flores on 07-31-2024 Albumin BCG dye [Mass/Vol] Albumin [Mass/volume] in Serum or Plasma by Bromocresol green (BCG) dye binding metho 3.5-5.7 [facility] Alkaline phosphatase [Enzyma tic activity/volume] in Serum or PlasmaOrdered By: Catie Flores on 07-31-2024 ALP [Catalytic activity/Vol] Alkaline phosphatase [Enzymatic activity/volume] in Serum or Plasma 34-104 [facility] Amylaseon 11-17-2024 Amylase [Catalytic activity/Vol] 36 U/L Normal 29-103 [facility] Comment on above: Performed By: #### H S TROP, YAZMIN, LIPASE, PT, HEPATIC, BMP, MG, CBC #### [facility] [address] Appearance of UrineOrdered B y: Catie Flores on 07-31-2024 Appearance (U) Urine appearance Abnormal Clear [facility] Aspartate aminotransferase [ Enzymatic activity/volume] in Serum or PlasmaOrdered By: Catie Flores on 07-31-2024 AST [Catalytic activity/Vol] Aspartate aminotransferase [Enzymatic activity/volume] in Serum or Plasma Low 13-39 [facility] Bacteria [Presence] in Urine by AutomatedOrdered By: Catie Flores on 07-31-2024 Bacteria Auto Ql (U) Bacteria [Presence] in Urine by Automated None Seen [facility] Basic Metabolic Panelon 07-15 Anion gap [Moles/Vol] 10.8 mmol/L Normal 6.0-15.0 [facility] Comment on above: Performed By: #### H S TROP, YAZMIN, LIPASE, PT, HEPATIC, BMP, MG, CBC #### [facility] [address] Calcium [Mass/Vol] 8.8 mg/dL Normal 8.6-10.3 [facility] Comment on above: Performed By: #### H S TROP, YAZMIN, LIPASE, PT, HEPATIC, BMP, MG, CBC #### [facility] [address] [place] [address] [place] Chloride [Moles/Vol] 107 mmol/L Normal 98-107 [facility] Comment on above: Performed By: #### H S TROP, YAZMIN, LIPASE, PT, HEPATIC, BMP, MG, CBC #### [facility] [address] [place] [address] [place] CO2 [Moles/Vol] 26.5 mmol/L Normal 21.0-31.0 The [facility] Comment on above: Performed By: #### H S TROP, YAZMIN, LIPASE, PT, HEPATIC, BMP, MG, CBC #### [facility] [address] [place] [address] [place] Creatinine [Mass/Vol] 0.83 mg/dL Normal 0.60-1.20 [facility] Comment on above: Performed By: #### H S TROP, YAZMIN, LIPASE, PT, HEPATIC, BMP, MG, CBC #### [facility] [address] Creatinine Clr Calc Pharmacy 90.17 Normal [facility] Comment on above: Performed By: #### H S TROP, YAZMIN, LIPASE, PT, HEPATIC, BMP, MG, CBC #### [facility] [address] [place] [address] [place] GFR/1.73 sq M.predicted MDRD (S/P/Bld) [Vol rate/Area] mL/min/{1.73_m2} Normal [facility] Comment on above: Performed By: #### H S TROP, YAZMIN, LIPASE, PT, HEPATIC, BMP, MG, CBC #### [address] Glucose [Mass/Vol] 85 mg/dL Normal 70-100 [facility] Comment on above: Result Comment: [facility] Glucose Reference Range is dependent on time and content of last meal. Glucose of more than 200 mg/dL in a nonstressed, ambulatory subject supports the diagnosis of Diabetes Mellitus. ADA recommended reference range Performed By: #### H S TROP, YAZMIN, LIPASE, PT, HEPATIC, BMP, MG, CBC #### [address] Potassium [Moles/Vol] 3.3 mmol/L Low 3.5-5.1 [facility] Comment on above: Performed By: #### H S TROP, YAZIMN, LIPASE, PT, HEPATIC, BMP, MG, CBC #### [facility] [address] [place] [address] [place] Sodium [Moles/Vol] 141 mmol/L Normal 136-145 [facility] Comment on above: Performed By: #### H S TROP, YAZMIN, LIPASE, PT, HEPATIC, BMP, MG, CBC #### [facility] [address] Urea nitrogen [Mass/Vol] 14 mg/dL Normal 7-25 [facility] Comment on above: Performed By: #### H S TROP, YAZMIN, LIPASE, PT, HEPATIC, BMP, MG, CBC #### [facility] [address] [place] [address] [place] Basophils Auto (Bld) [#/Vol] Ordered By: Catie Flores on 07-31-2024 Basophils (Bld) [#/Vol] Automated basophil count 0.0-0.2 [facility] Basophils/100 WBC Auto (Bld) Ordered By: Catie Flores on 07-31-2024 Basophils/100 WBC (Bld) Automated basophil % . [facility] Bilirubin Test strip Ql (U)O rdered By: Catie Flores on 07-31-2024 Bilirubin Ql (U) Bilirubin.total [Presence] in Urine by Test strip Negative [facility] Bilirubin.direct [Mass/volum e] in Serum or PlasmaOrdered By: Catie Flores on 07-31-2024 Bilirubin.direct [Mass/Vol] Bilirubin.direct [Mass/volume] in Serum or Plasma 0.03-0.18 [facility] Bilirubin.total [Mass/volume ] in Serum or PlasmaOrdered By: Catie Flores on 07-31-2024 Bilirubin [Mass/Vol] Bilirubin.total [Mass/volume] in Serum or Plasma 0.3-1.[address] [facility] [address] abdomen pelvis wo conon 1 09-30-2023 CT abdomen pelvis wo con [facility] [place] [address] [place] [address] CT Scan Report Signed Patient: Trudy Wilder MR#: [id number] 89 : 1975 Acct:[id number] Age/Sex: 48 / F ADM Date: 07/31/24 Loc: ER Room: Type: [facility] ER Attending Dr: Copies to: Catie Flores DO Ordering Provider: Catie Flores DO Date of Service: 07/31/24 CT/CT abdomen pelvis wo con: Abdominal Pain CT ABDOMEN AND PELVIS WITHOUT CONTRAST COMPARISON: 10/22/2016 CLINICAL DATA: Mid to upper abdominal pain with vomiting for the past few days. Spiral images were obtained through the abdomen and pelvis without contrast. This CT exam was performed using one or more following dose reduction techniques: Automated exposure control, adjustment of the mA and/or kV according to patient size, or use of iterative reconstruction technique. Limited cuts through the lung bases show no contributory findings. Assessment of the intra-abdominal organs is slightly limited by the absence of contrast. No calcified gallstones are identified. There is minor focal fat within the liver near the fossa of the ligamentum teres. Spleen and adrenal glands are within normal limits. The pancreas is unchanged in size and contour. There is question of subtle fibrofatty stranding near the head of the pancreas and correlation with amylase and lipase is suggested to exclude any possibility of acute pancreatitis. There is also apparent thickening of the wall of the adjacent duodenum. This could be reactive however duodenitis is also a possibility. There are no renal calculi or hydronephrosis. The abdominal aorta is normal caliber. Small lymph nodes are present. No ascites is seen. There is a tiny umbilical hernia containing fat. There are normal caliber small bowel loops. Mild stool is seen along the colon. The bony structures are intact. Images through the pelvis show a normal appendix. There is no dilated small bowel. There is a small amount of distal colonic stool. The right be a couple sigmoid diverticula. There is no active inflammation. The uterus is surgically absent. The urinary bladder is not adequately distended for assessment. No free fluid is identified. CT/CT abdomen pelvis wo con IMPRESSION: NO BOWEL OR URINARY TRACT OBSTRUCTION. POSSIBLE MINOR ACUTE PANCREATITIS AND/OR DUODENITIS. CORRELATION AND FOLLOW-UP ARE SUGGESTED. NO OTHER ACUTE FINDINGS. Impression dictated by: Jennie Del Real M.D.07/31/2024 9:42 AM Dictation Location: [place] [address] Transcribed By: [facility] 07/31/2442 Dictated By: Jennie Del Real MD 07/31/2436 Signed By: 07/31/24941 Normal [facility] Calcium [Mass/volume] in Ser um or PlasmaOrdered By: Catie Flores on 07-31-2024 Calcium [Mass/Vol] Calcium [Mass/volume ] in Serum or Plasma 8.6-10.3 [facility] Carbon dioxide, total [Moles /volume] in Serum or PlasmaOrdered By: Catie Flores on 07-31-2024 CO2 [Moles/Vol] Carbon dioxide, tota l [Moles/volume] in Serum or Plasma 21.0-31.0 [facility] Casts [Presence] in Urine by AutomatedOrdered By: Catie Flores on 07-31-2024 Casts Auto Ql (U) Casts [Presence] in Urine by Automated High None Seen [facility] Chloride [Moles/volume] in S magda or PlasmaOrdered By: Catie Flores on 07-31-2024 Chloride [Moles/Vol] Chloride [Moles/vol ume] in Serum or Plasma 98-107 [facility] Color Auto (U)Ordered By: Perez Flores on 07-31-2024 Color (U) Color of Urine by Auto [facility] Auto Di ffon 07-31-2024 Basophils (Bld) [#/Vol] 0.0 10*3/uL Normal 0.0-0.2 [facility] Comment on above: Result Comment: PERF ORMED BY: [place] [address] PATHOLOGIST RN [employer]ITONE[employer]IALYS[facility] MILLER VO M.D. Performed By: #### H S TROP, YAZMIN, LIPASE, PT, HEPATIC, BMP, MG, CBC #### [address] Basophils/100 WBC (Bld) 0.6 % Normal . [facility] Comment on above: Performed By: #### H S TROP, YAZMIN, LIPASE, PT, HEPATIC, BMP, MG, CBC #### [address] Eosinophils (Bld) [#/Vol] 0.0 10*3/uL Normal 0.0-0.45 [facility] Comment on above: Performed By: #### H S TROP, YAZMIN, LIPASE, PT, HEPATIC, BMP, MG, CBC #### [address] Eosinophils/100 WBC (Bld) 0.5 % Normal . [facility] Comment on above: Performed By: #### H S TROP, YAZMIN, LIPASE, PT, HEPATIC, BMP, MG, CBC #### [address] Erythrocyte distribution width (RBC) [Ratio] 13.6 % Normal 11.9-15.3 [facility] Comment on above: Performed By: #### H S TROP, YAZMIN, LIPASE, PT, HEPATIC, BMP, MG, CBC #### [address] Hematocrit (Bld) [Volume fraction] 41.3 % Normal 34.0-46.4 [facility] Comment on above: Performed By: #### H S TROP, YAZMIN, LIPASE, PT, HEPATIC, BMP, MG, CBC #### [address] Hemoglobin (Bld) [Mass/Vol] 14.0 g/dL Normal 11.8-15.4 [facility] Comment on above: Performed By: #### H S TROP, YAZMIN, LIPASE, PT, HEPATIC, BMP, MG, CBC #### [address] Lymphocytes (Bld) [#/Vol] 2.8 10*3/uL Normal 1.00-4.8 [facility] Comment on above: Performed By: #### H S TROP, YAZMIN, LIPASE, PT, HEPATIC, BMP, MG, CBC #### [address] Lymphocytes/100 WBC (Bld) 32.8 % Normal . [facility] Comment on above: Performed By: #### H S TROP, YAZMIN, LIPASE, PT, HEPATIC, BMP, MG, CBC #### [address] MCH (RBC) [Entitic mass] 30.1 pg Normal 24.7-34.3 [facility] Comment on above: Performed By: #### H S TROP, YAZMIN, LIPASE, PT, HEPATIC, BMP, MG, CBC #### [address] MCV (RBC) [Entitic vol] 88.7 fL Normal 80-100 [facility] Comment on above: Performed By: #### H S TROP, YAZMIN, LIPASE, PT, HEPATIC, BMP, MG, CBC #### [address] Mean Corpuscular HGB Conc 33.9 g/dL Normal 32.0-35.0 [facility] Comment on above: Performed By: #### H S TROP, YAZMIN, LIPASE, PT, HEPATIC, BMP, MG, CBC #### [address] Monocytes (Bld) [#/Vol] 0.6 10*3/uL Normal 0.0-0.8 [facility] Comment on above: Performed By: #### H S TROP, YAZMIN, LIPASE, PT, HEPATIC, BMP, MG, CBC #### [address] Monocytes/100 WBC (Bld) 17.14 % Normal 0.00-20.00 [facility] Comment on above: Performed By: #### H S TROP, YAZMIN, LIPASE, PT, HEPATIC, BMP, MG, CBC #### [address] Monocytes/100 WBC (Bld) 7.1 % Normal . [facility] Comment on above: Performed By: #### H S TROP, YAZMIN, LIPASE, PT, HEPATIC, BMP, MG, CBC #### [address] Neutrophils (Bld) [#/Vol] 5.1 10*3/uL Normal 1.8-7.7 [facility] Comment on above: Performed By: #### H S TROP, YAZMIN, LIPASE, PT, HEPATIC, BMP, MG, CBC #### [address] Neutrophils/100 WBC (Bld) 59.0 % Normal . [facility] Comment on above: Performed By: #### H S TROP, YAZMIN, LIPASE, PT, HEPATIC, BMP, MG, CBC #### [address] NRBC% 0.1 /100{WBC} Normal 0-0.5 [facility] Comment on above: Performed By: #### H S TROP, YAZMIN, LIPASE, PT, HEPATIC, BMP, MG, CBC #### [address] Platelet mean volume (Bld) [Entitic vol] 8.5 fL Normal 6.3-10.7 [facility] Comment on above: Performed By: #### H S TROP, YAZMIN, LIPASE, PT, HEPATIC, BMP, MG, CBC #### [facility] [address] Platelets (Bld) [#/Vol] 248 10*3/uL Normal 150-450 [facility] Comment on above: Performed By: #### H S TROP, YAZMIN, LIPASE, PT, HEPATIC, BMP, MG, CBC #### [address] RBC (Bld) [#/Vol] 4.66 10*6/uL Normal 3.60-5.00 [facility] Comment on above: Performed By: #### H S TROP, YAZMIN, LIPASE, PT, HEPATIC, BMP, MG, CBC #### [address] WBC (Bld) [#/Vol] 8.6 10*3/uL Normal 3.8-11.6 [facility] Comment on above: Performed By: #### H S TROP, YAZMIN, LIPASE, PT, HEPATIC, BMP, MG, CBC #### [address] Creatinine [Mass/volume] in Serum or PlasmaOrdered By: Catie Flores on 07-31-2024 Creatinine [Mass/Vol] Creatinine [Mass/v olume] in Serum or Plasma 0.60-1.20 [facility] Dipstick and Microscopicon 1 09-30-2023 Appearance (U) Cloudy Critically abnormal Clear [facility] Comment on above: Order Comment: Name Collection Type:: Clean-Voided Midstream Performed By: #### H S TROP, YAZMIN, LIPASE, PT, HEPATIC, BMP, MG, CBC #### [facility] [address] Bacteria,Urine None Seen Normal None Seen [facility] Comment on above: Order Comment: Name Collection Type:: Clean-Voided Midstream Performed By: #### H S TROP, YAZMIN, LIPASE, PT, HEPATIC, BMP, MG, CBC #### [facility] [address] Bilirubin,Urine Negative Normal Negative [facility] Comment on above: Order Comment: Name Collection Type:: Clean-Voided Midstream Performed By: #### H S TROP, YAZMIN, LIPASE, PT, HEPATIC, BMP, MG, CBC #### [address] Color (U) Yellow Normal Yellow [facility] Comment on above: Order Comment: Name Collection Type:: Clean-Voided Midstream Performed By: #### H S TROP, YAZMIN, LIPASE, PT, HEPATIC, BMP, MG, CBC #### [address] Glucose Ql (U) Normal Normal Normal [facility] Comment on above: Order Comment: Name Collection Type:: Clean-Voided Midstream Performed By: #### H S TROP, YAZMIN, LIPASE, PT, HEPATIC, BMP, MG, CBC #### [address] Hyaline Casts,Urine 0 [LPF] Normal 0-8 [facility] Comment on above: Order Comment: Name Collection Type:: Clean-Voided Midstream Performed By: #### H S TROP, YAZMIN, LIPASE, PT, HEPATIC, BMP, MG, CBC #### [address] Ketones Ql (U) Negative Normal Negative [facility] Comment on above: Order Comment: Name Collection Type:: Clean-Voided Midstream Performed By: #### H S TROP, YAZMIN, LIPASE, PT, HEPATIC, BMP, MG, CBC #### [address] Leukocyte esterase Test strip Ql (U) 2+ High Negative [facility] Comment on above: Order Comment: Name Collection Type:: Clean-Voided Midstream Performed By: #### H S TROP, YAZMIN, LIPASE, PT, HEPATIC, BMP, MG, CBC #### [facility] [address] Mucus,Urine 4+ Critically abnormal [facility] Comment on above: Order Comment: Name Collection Type:: Clean-Voided Midstream Performed By: #### H S TROP, YAZMIN, LIPASE, PT, HEPATIC, BMP, MG, CBC #### [facility] [address] Nitrite,Urine Negative Normal Negative [facility] Comment on above: Order Comment: Name Collection Type:: Clean-Voided Midstream Performed By: #### H S TROP, YAZMIN, LIPASE, PT, HEPATIC, BMP, MG, CBC #### [address] Occult Blood,Urine Negative Normal Negative [facility] Comment on above: Order Comment: Name Collection Type:: Clean-Voided Midstream Performed By: #### H S TROP, YAZMIN, LIPASE, PT, HEPATIC, BMP, MG, CBC #### [address] Other Casts,Urine 1 [LPF] High None Seen [facility] Comment on above: Order Comment: Name Collection Type:: Clean-Voided Midstream Performed By: #### H S TROP, YAZMIN, LIPASE, PT, HEPATIC, BMP, MG, CBC #### [address] pH (U) 5.5 [pH] Normal 5.0-9.0 [facility] Comment on above: Order Comment: Name Collection Type:: Clean-Voided Midstream Performed By: #### H S TROP, YAZMIN, LIPASE, PT, HEPATIC, BMP, MG, CBC #### [address] Protein,Urine Negative Normal Negative [facility] Comment on above: Order Comment: Name Collection Type:: Clean-Voided Midstream Performed By: #### H S TROP, YAZMIN, LIPASE, PT, HEPATIC, BMP, MG, CBC #### [address] RBC,Urine 3 [HPF] Normal 0-4 [facility] Comment on above: Order Comment: Name Collection Type:: Clean-Voided Midstream Performed By: #### H S TROP, YAZMIN, LIPASE, PT, HEPATIC, BMP, MG, CBC #### [address] Specificy [place],Urine 1.023 Normal 1.001-1.030 [facility] Comment on above: Order Comment: Name Collection Type:: Clean-Voided Midstream Performed By: #### H S TROP, YAZMIN, LIPASE, PT, HEPATIC, BMP, MG, CBC #### [address] Squamous Epithelial Cell,Urine 5 [HPF] High 0-2 [facility] Comment on above: Order Comment: Name Collection Type:: Clean-Voided Midstream Performed By: #### H S TROP, YAZMIN, LIPASE, PT, HEPATIC, BMP, MG, CBC #### [address] Urobilinogen,Urine Normal Normal Normal [facility] Comment on above: Order Comment: Name Collection Type:: Clean-Voided Midstream Performed By: #### H S TROP, YAZMIN, LIPASE, PT, HEPATIC, BMP, MG, CBC #### [address] WBC,Urine 5 [HPF] High 0-4 [facility] Comment on above: Order Comment: Name Collection Type:: Clean-Voided Midstream Performed By: #### H S TROP, YAZMIN, LIPASE, PT, HEPATIC, BMP, MG, CBC #### [address] ECG 12 lead ECGon 07-31-2024 ECG 12 lead ECG [facility] [place] [address] [place] [address] Electrocardiograph Report Signed Patient: Trudy Wilder MR#: [id number] 89 : 1975 Acct:[id number] Age/Sex: 48 / F ADM Date: 07/31/24 Loc: Room: [address] [place] [address] Type: ADM INOo Attending Dr: Valerio Zheng DO Ordering Provider: Catie Flores DO Date of Service: 07/31/24 ECG/ECG 12 lead ECG: Abdominal Pain Copies to: Test Reason : Blood Pressure : 140/73 mmHG Vent. Rate : 56 BPM Atrial Rate : 56 BPM P-R Int : 158 ms QRS Dur : 84 ms QT Int : 404 ms P-R-T Axes : 51 44 48 degrees QTcB Int : 389 ms Sinus bradycardia with sinus arrhythmia Otherwise normal ECG When compared with ECG of 19-Jul-2019 18:04, No significant change was found Confirmed by CATIE FLORES DO ([id number]) on 07/31/2024 4:21:03 PM Referred By: Electronically Signed By: CATIE FLORES DO Transcribed By: [facility] Signed By Catie Flores DO 07/31 1621 Normal [facility] Eosinophils Auto (Bld) [#/Vo l]Ordered By: Catie Flores on 07-31-2024 Eosinophils (Bld) [#/Vol] Automated eosinophil count 0.0-0.45 [facility] Eosinophils/100 WBC Auto (Bl d)Ordered By: Catie Flores on 07-31-2024 Eosinophils/100 WBC (Bld) Automated eosinophil % . [facility] Epithelial cells.squamous [# /area] in Urine sediment by Automated countOrdered By: Catie Flores on 07-31-2024 Epithelial cells.squamous Auto (Urine sed) [#/Area] Epithelial cells.squamous [#/area] in Urine sediment by Automated count High 0-2 [facility] Erythrocyte distribution wid th Auto (RBC) [Ratio]Ordered By: Catie Flores on 07-31-2024 Erythrocyte distribution width (RBC) [Ratio] Erythrocyte distribution width [Ratio] by Automated count 11.9-15.3 [facility] Erythrocytes [#/area] in Uri ne sediment by Automated countOrdered By: Catie Flores on 07-31-2024 RBC Auto (Urine sed) [#/Area] Erythrocytes [#/area] in Urine sediment by Automated count 0-4 [facility] Globulin Calc (S) [Mass/Vol] Ordered By: Catie Flores on 07-31-2024 Globulin (S) [Mass/Vol] Serum globulin measurement by calculation (mass/volume) [facility] Glucose [Mass/volume] in Ser um or PlasmaOrdered By: Catie Flores on 07-31-2024 Glucose [Mass/Vol] Glucose [Mass/volume ] in Serum or Plasma 70-100 [facility] Comment on above: ADA recommended refe rence rangeRandom Glucose Reference Range is dependent on time and content of last meal. Glucose of more than 200 mg/dL in a nonstressed, ambulatory subject supports the diagnosis of Diabetes Mellitus. Glucose [Mass/volume] in Uri ne by Test stripOrdered By: Catie Flores on 07-31-2024 Glucose Test strip (U) [Mass/Vol] Glucose [Mass/volume] in Urine by Test strip Normal [facility] HCG ( test) IA.rapi d Ql (U)Ordered By: Catie Flores on 07-31-2024 HCG ( test) Ql (U) Urine human chorionic gonadotropin (hCG) detection by immunoassay [facility] HCG,Urineon 07-31-2024 Beta HCG ( test) Ql (U) Negative Normal [facility] Comment on above: Order Comment: Name Collection Type:: Clean-Voided Midstream Result Comment: PERF ORMED BY: [place] [address] PATHOLOGIST RN PERITONE[employer] DIALYSIS MILLER VO M.D. Performed By: #### H S TROP, YAZMIN, LIPASE, PT, HEPATIC, BMP, MG, CBC #### [facility] [address] Hematocrit Auto (Bld) [Volum e fraction]Ordered By: Catie Flores on 07-31-2024 Hematocrit (Bld) [Volume fraction] Hematocrit [Volume Fraction] of Blood by Automated count 34.0-46.4 [facility] Hemoglobin Test strip Ql (U) Ordered By: Catie Flores on 07-31-2024 Hemoglobin Ql (U) Hemoglobin [Presence ] in Urine by Test strip Negative [facility] Hemoglobin [Mass/volume] in BloodOrdered By: Catie Flores on 07-31-2024 Hemoglobin (Bld) [Mass/Vol] Hemoglobin [Mass/volume] in Blood 11.8-15.4 [facility] Hepatic Panelon 07-31-2024 Albumin [Mass/Vol] 4.0 g/dL Normal 3.5-5.7 [facility] Comment on above: Performed By: #### H S TROP, YAZMIN, LIPASE, PT, HEPATIC, BMP, MG, CBC #### [facility] [address] Albumin/Globulin [Mass ratio] 1.7 {ratio} Normal [facility] Comment on above: Performed By: #### H S TROP, YAZMIN, LIPASE, PT, HEPATIC, BMP, MG, CBC #### [facility] [address] ALP [Catalytic activity/Vol] 79 U/L Normal 34-104 [facility] Comment on above: Performed By: #### H S TROP, YAZMIN, LIPASE, PT, HEPATIC, BMP, MG, CBC #### [facility] [address] [place] [address] [place] ALT [Catalytic activity/Vol] 10 U/L Normal 7-52 [facility] Comment on above: Performed By: #### H S TROP, YAZMIN, LIPASE, PT, HEPATIC, BMP, MG, CBC #### [facility] [address] [place] [id number] [place] AST [Catalytic activity/Vol] 11 U/L Low 13-39 [facility] Comment on above: Performed By: #### H S TROP, YAZMIN, LIPASE, PT, HEPATIC, BMP, MG, CBC #### [facility] [address] [place] [address] [place] Bilirubin [Mass/Vol] 0.6 mg/dL Normal 0.3-1.0 [facility] Comment on above: Performed By: #### H S TROP, YAZMIN, LIPASE, PT, HEPATIC, BMP, MG, CBC #### [facility] [address] [place] [address] [place] Bilirubin,Indirect 0.5 mg/dL Normal [facility] Comment on above: Performed By: #### H S TROP, YAZMIN, LIPASE, PT, HEPATIC, BMP, MG, CBC #### [facility] [address] Bilirubin.indirect [Mass/Vol] 0.10 mg/dL Normal 0.03-0.18 [facility] Comment on above: Performed By: #### H S TROP, YAZMIN, LIPASE, PT, HEPATIC, BMP, MG, CBC #### [address] Globulin (S) [Mass/Vol] 2.4 g/dL Normal [facility] Comment on above: Performed By: #### H S TROP, YAZMIN, LIPASE, PT, HEPATIC, BMP, MG, CBC #### [address] Protein [Mass/Vol] 6.4 g/dL Normal 6.4-8.9 [facility] Comment on above: Performed By: #### H S TROP, YAZMIN, LIPASE, PT, HEPATIC, BMP, MG, CBC #### [address] Hyaline casts [#/area] in Ur ine sediment by Automated countOrdered By: Catie Flores on 07-31-2024 Hyaline casts Auto (Urine sed) [#/Area] Hyaline casts [#/area] in Urine sediment by Automated count 0-8 [facility] INR in Platelet poor plasma by Coagulation assayOrdered By: Catie Flores on 07-31-2024 INR Coag (PPP) [Relative time] INR in Platelet poor plasma by Coagulation assay [facility] Comment on above: INR Therapeutic Rang e A) Pre- and Peroperative OAT started two weeks before surgery. NOT HIP SURGERY: 1.5 - 2.5 HIP SURGERY: 2 - 3B) Primary and secondary prevention of venous THROMBOSIS: 2 - 3C) Active venous thrombosis, pulmonary embolismand prevention of recurrent venous thrombosis: 2 - 3D) Prevention of arterial thromboembolismincluding patients with mechanical heart valves: 3 - 4.5 Ketones Test strip Ql (U)Ord ered By: Catie Flores on 07-31-2024 Ketones Ql (U) Ketones [Presence] i n Urine by Test strip Negative [facility] Leukocyte esterase [Presence ] in Urine by Test stripOrdered By: Catie Flores on 07-31-2024 Leukocyte esterase Test strip Ql (U) Leukocyte esterase [Presence] in Urine by Test strip High Negative [facility] Leukocytes [#/area] in Urine sediment by Automated countOrdered By: Catie Flores on 07-31-2024 WBC Auto (Urine sed) [#/Area] Leukocytes [#/area] in Urine sediment by Automated count High 0-4 [facility] Leukocytes [#/volume] correc kofi for nucleated erythrocytes in Blood by Automated counOrdered By: Catie Flores on 07-31-2024 WBC corrected for nucl RBC Auto (Bld) [#/Vol] Leukocytes [#/volume] corrected for nucleated erythrocytes in Blood by Automated coun 3.8-11.6 [facility] Lipaseon 07-31-2024 Lipase [Catalytic activity/Vol] 30.0 U/L Normal 11.0-82.0 [facility] Comment on above: Result Comment: PERF ORMED BY: [place] [address] PATHOLOGIST RN [facility] MILLER VO M.D. Performed By: #### H S TROP, YAZMIN, LIPASE, PT, HEPATIC, BMP, MG, CBC #### [address] Lipase [Enzymatic activity/v olume] in Serum or PlasmaOrdered By: Catie Flores on 07-31-2024 Lipase [Catalytic activity/Vol] Lipase [Enzymatic activity/volume] in Serum or Plasma 11.0-82.0 [facility] Lymphocytes Auto (Bld) [#/Vo l]Ordered By: Catie Flores on 07-31-2024 Lymphocytes (Bld) [#/Vol] Lymphocytes [#/volume] in Blood by Automated count 1.00-4.8 [facility] Lymphocytes/100 WBC Auto (Bl d)Ordered By: Catie Flores on 07-31-2024 Lymphocytes/100 WBC (Bld) Lymphocytes/100 leukocytes in Blood by Automated count . [facility] MCH Auto (RBC) [Entitic mass ]Ordered By: Catie Flores on 07-31-2024 MCH (RBC) [Entitic mass] MCH [Entitic mass] by Automated count 24.7-34.3 [facility] MCHC Auto (RBC) [Mass/Vol]Or dered By: Catie Flores on 07-31-2024 MCHC (RBC) [Mass/Vol] MCHC [Mass/volume] by Automated count 32.0-35.0 [facility] MCV Auto (RBC) [Entitic vol] Ordered By: Catie Flores on 07-31-2024 MCV (RBC) [Entitic vol] MCV [Entitic volume] by Automated count 80-100 [facility] Magnesiumon 07-31-2024 Magnesium [Mass/Vol] 1.9 mg/dL Normal 1.9-2.7 [facility] Comment on above: Performed By: #### H S TROP, YAZMIN, LIPASE, PT, HEPATIC, BMP, MG, CBC #### [facility] [address] Magnesium [Mass/volume] in S magda or PlasmaOrdered By: Catie Flores on 07-31-2024 Magnesium [Mass/Vol] Magnesium [Mass/vol ume] in Serum or Plasma 1.9-2.7 [facility] Monocyte distribution width [Entitic volume] in Blood by AutomatedOrdered By: Catie Flores on 07-31-2024 Monocyte distribution width Auto (Bld) [Entitic vol] Monocyte distribution width [Entitic volume] in Blood by Automated 0.00-20.00 [facility] Monocytes Auto (Bld) [#/Vol] Ordered By: Catie Flores on 07-31-2024 Monocytes (Bld) [#/Vol] Automated blood monocyte count 0.0-0.8 [facility] Monocytes/100 WBC Auto (Bld) Ordered By: Catie Flores on 07-31-2024 Monocytes/100 WBC (Bld) Automated monocyte % . [facility] Mucus [Presence] in Urine by AutomatedOrdered By: Catie Flores on 07-31-2024 Mucus Auto Ql (U) Mucus [Presence] in Urine by Automated Abnormal [facility] Neutrophils Auto (Bld) [#/Vo l]Ordered By: Catie Flores on 07-31-2024 Neutrophils (Bld) [#/Vol] Neutrophils [#/volume] in Blood by Automated count 1.8-7.7 [facility] Neutrophils/100 WBC Auto (Bl d)Ordered By: Catie Flores on 07-31-2024 Neutrophils/100 WBC (Bld) Automated neutrophil % . [facility] Nitrite Test strip Ql (U)Ord ered By: Catie Flores on 07-31-2024 Nitrite Ql (U) Nitrite [Presence] i n Urine by Test strip Negative [facility] No Panel InformationOrdered By: Catie Flores on 07-31-2024 Estimated GFR (CKD-EPI) > 60.0 mL/Min [facility] Creatinine Clearance (Chem 90.17 [facility] Nucleated erythrocytes [Pres ence] in Blood by Automated countOrdered By: Catie Flores on 07-31-2024 Nucleated RBC Auto Ql (Bld) Nucleated erythrocytes [Presence] in Blood by Automated count 0-0.5 [facility] Platelet mean volume Auto (B ld) [Entitic vol]Ordered By: Catie Flores on 07-31-2024 Platelet mean volume (Bld) [Entitic vol] Platelet mean volume [Entitic volume] in Blood by Automated count 6.3-10.7 [facility] Platelets Auto (Bld) [#/Vol] Ordered By: Catie Flores on 07-31-2024 Platelets (Bld) [#/Vol] Platelets [#/volume] in Blood by Automated count 150-450 [facility] Potassium [Moles/volume] in Serum or PlasmaOrdered By: Catie Flores on 07-31-2024 Potassium [Moles/Vol] Potassium [Moles/v olume] in Serum or Plasma Low 3.5-5.1 [facility] Protein Test strip (U) [Mass /Vol]Ordered By: Catie Flores on 07-31-2024 Protein (U) [Mass/Vol] Protein [Mass/volume] in Urine by Test strip Negative [facility] Protein [Mass/volume] in Ser um or PlasmaOrdered By: Catie Flores on 07-31-2024 Protein [Mass/Vol] Protein [Mass/volume ] in Serum or Plasma 6.4-8.9 [facility] Prothrombin Time INRon 07-31 INR Coag (PPP) [Relative time] 1.0 {INR} Normal [facility] Comment on above: Result Comment: INR Therapeutic Range A) Pre- and Peroperative OAT started two weeks before surgery. NOT HIP SURGERY: 1.5 - 2.5 HIP SURGERY: 2 - 3 B) Primary and secondary prevention of venous THROMBOSIS: 2 - 3 C) Active venous thrombosis, pulmonary embolism and prevention of recurrent venous thrombosis: 2 - 3 D) Prevention of arterial thromboembolism including patients with mechanical heart valves: 3 - 4.5 PERFORMED BY: [place] [address] PATHOLOGIST RN [employer] MILLER VO M.D. Performed By: #### H S TROP, YAZMIN, LIPASE, PT, HEPATIC, BMP, MG, CBC #### [address] PT Coag (PPP) [Time] 12.0 s Normal 9.0-12.9 [facility] Comment on above: Result Comment: A he matocrit value greater than 55% may lead to inaccurate results in coagulation testing. Patients having hematocrit values >55% require a special collection tube for coagulation studies. Please contact the laboratory at [phone] for redraw instructions. Performed By: #### H S TROP, YAZMIN, LIPASE, PT, HEPATIC, BMP, MG, CBC #### [facility] [address] [place] [address] Prothrombin time (PT)Ordered By: Catie Flores on 07-31-2024 PT Coag (PPP) [Time] Prothrombin time (PT) 9.0- 12.9 [facility] Comment on above: A hematocrit value g reater than 55% may lead to inaccurate results in coagulation testing. Patients having hematocrit values >55% require a special collection tube for coagulation studies. Please contact the laboratory at [phone] for redraw instructions. RBC Auto (Bld) [#/Vol]Ordere d By: Catie Flores on 07-31-2024 RBC (Bld) [#/Vol] Erythrocytes [#/volu me] in Blood by Automated count 3.60-5.00 [facility] Serum or plasma albumin/glob ulin mass ratioOrdered By: Catie Flores on 07-31-2024 Albumin/Globulin [Mass ratio] Serum or plasma albumin/globulin mass ratio [facility] Serum or plasma anion gap de terminationOrdered By: Catie Flores on 07-31-2024 Anion gap [Moles/Vol] Serum or plasma an ion gap determination 6.0-15.0 [facility] Serum or plasma non-glucuron idated bilirubin measurement (mass/volume)Ordered By: Catie Flores on 07-31-2024 Bilirubin.indirect [Mass/Vol] Serum or plasma non-glucuronidated bilirubin measurement (mass/volume) [facility] Sodium [Moles/volume] in Ser um or PlasmaOrdered By: Catie Flores on 07-31-2024 Sodium [Moles/Vol] Sodium [Moles/volume ] in Serum or Plasma 136-145 [facility] Specific gravity Test strip (U) [Rel density]Ordered By: Catie Flores on 07-31-2024 Specific gravity (U) [Rel density] Specific gravity of Urine by Test strip 1.001-1.030 [facility] Troponin I High Sensitivityo n 07-31-2024 Troponin I High Sensitivity 6.5 pg/mL Normal 0.0-15.0 [facility] Comment on above: Result Comment: PERF ORMED BY: [place] [address] PATHOLOGIST RN [employer] MILLER VO M.D. Performed By: #### H S TROP, YAZMIN, LIPASE, PT, HEPATIC, BMP, MG, CBC #### [address] Troponin I.cardiac [Mass/vol ume] in Serum or Plasma by Detection limit <= 0.01 ng/Ordered By: Catie Flores on 07-31-2024 Troponin I.cardiac DL <= 0.01 ng/mL [Mass/Vol] Troponin I.cardiac [Mass/volume] in Serum or Plasma by Detection limit <= 0.01 ng/ 0.0-15.0 [facility] Urea nitrogen [Mass/volume] in Serum or PlasmaOrdered By: Catie Flores on 07-31-2024 Urea nitrogen [Mass/Vol] Urea nitrogen [Mass/volume] in Serum or Plasma 7-25 [facility] Urine Cultureon 07-31-2024 Bacteria identified Cx Nom (U) No Growth 2 Days PERFORMED BY: [facility] [address] [place] [id number] PATHOLOGIST RN [employer]IALYS[facility] MILLER VO M.D. Normal [facility] Comment on above: Performed By: #### H S TROP, YAZMIN, LIPASE, PT, HEPATIC, BMP, MG, CBC #### [facility] [address] Urobilinogen Test strip (U) [Mass/Vol]Ordered By: Catie Flores on 07-31-2024 Urobilinogen (U) [Mass/Vol] Urobilinogen [Mass/volume] in Urine by Test strip Normal [facility] WBC Auto (Bld) [#/Vol]Ordere d By: Catie Flores on 07-31-2024 WBC (Bld) [#/Vol] Leukocytes [#/volume ] in Blood by Automated count 3.8-11.6 [facility] pH Test strip (U)Ordered By: Catie Flores on 07-31-2024 pH (U) pH of Urine by Test strip 5.0-9.0 [facility] Chlam & GC, DNAon 07-25-2024 Chlamydia, DNA Negative Normal Negative [facility] Comment on above: Result Comment: The APTIMA [...] to the clinician. Performed By: #### C [id number] #### [address] [address] Gonorrhea, DNA Negative Normal Negative [facility] Comment on above: Result Comment: The APTIMA [...] to the clinician. Performed By: #### C [id number] #### [address] [address] Ureaplasma species, PCR-Barton on 07-25-2024 Specimen Source (URRP)-[place] Vaginal Normal [facility] Comment on above: Performed By: #### C D:[id number] #### [address] [address] Ureaplasma parvum PCR-[place] Positive Abnormal Not Applicable [facility] Comment on above: Result Comment: ADDITIONAL INFORMATION This test was developed and its performance characteristics determined by [facility] in a manner consistent with CLIA requirements. This test has not been cleared or approved by the U.S. Food and Drug Administration. Test Performed by: [address] [address] Building Services Technician: Rudolph Garcia Ph.D.; CLIA# [id number] Performed By: #### C [id number] #### [address] [address] Ureaplasma urealyticum PCR-[place] Negative Normal Not Applicable [facility] Comment on above: Performed By: #### C [id number] #### [address] [address] Mycoplasma hominis, PCR-[place] on 07-23-2024 Mycoplasma hominis PCR-[place] Negative Normal Not Applicable [facility] Comment on above: Result Comment: ADDITIONAL INFORMATION This test was developed and its performance characteristics determined by [facility] in a manner consistent with CLIA requirements. This test has not been cleared or approved by the U.S. Food and Drug Administration. Test Performed by: [facility] - [address] [address] Building Services Technician: Rudolph Garcia Ph.D.; CLIA# [id number] Performed By: #### C [id number] #### [address] [address] Specimen Source ([facility])-[place] Vaginal Normal [facility] Comment on above: Performed By: #### C D:[id number] #### [address] [address] Gynecology Office/Clinic Not ramila 07-22-2024 Gynecology Office/Clinic Note Chief Complaint reculture History of Present Illness Sexually Active: Yes Comments 07/22/24 07:56:00 Pt is here for a 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 Comparison is made to exams dated: 12/27/2021 mammogram, 01/13/2023 mammogram, and 12/25/2020 mammogram - [facility]. The breasts are heterogeneously dense, which may [...] may not be detected on mammograms. The [employer] supports annual screening mammography starting at age 40. Mandy chambers/joshua:02/15/2024 14:48:25 Dentistry Professor(s): Mary Almanza, RT(R)(M)(CT), [facility] letter sent: New Mammo Normal B1/2 Mammogram [...] 2 SPRAYS INTO EACH NOSTRIL EVERY DAY oxyCODONE-acetaminophen 5 mg-325 mg oral tablet valACYclovir 500 mg oral tablet, 500 mg= 1 tabs, Oral, Daily, 3 refills Xerac AC 6.25% solution, See Instructions, 6 refills, apply underarms qd as directed. Allergies Phenergan (Convulsions) contrast media (iodine-based) (Heart racing) doxycycline (Vomiting) Social History Alcohol Never Nutrition/Health (more content not included)... Normal [facility] OR [facility] [place] 07-22-2024 Specimens Received From [facility] Normal [facility] Comment on above: Performed By: #### C [id number] #### [facility] [address] [place] [address] HSV1,2 Ql PCR,Swab-[facility] Herpes Source-[place]arton Not Reported Normal [facility] Comment on above: Performed By: #### C [id number] #### [address] [address] HSV 1 PCR-Barton SEE BELOW [facility] Comment on above: Result Comment: RESU LT: Test Not Performed Herpes Simplex Virus, PCR, Varies was cancelled on 07/21/2024 at 07:20; Per provider's request. Test Performed by: [address] [address] Building Services Technician: Rudolph Garcia Ph.D.; CLIA# [id number] Performed By: #### C [id number] #### [place] [address] HSV 2 PCR-[place]arton Not Reported Normal [facility] Comment on above: Performed By: #### C [id number] #### [facility] [address] [place], [place] [address] Gynecology Office/Clinic Not ramila 07-19-2024 Gynecology Office/Clinic [...] testing and BV. She had testing in [place] and +Ureaplasma/mycoplasma treated with Azithromycin approx 1 week ago. No bowel/bladder complaints. 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 Normal [facility] [place] [facility] 07-19-2024 Specimens Received From BV [facility] Comment on above: Performed By: #### C D:[id number] #### [address] [address] Vaginal Panel DNAon 07-19-20 24 Bacterial Vaginosis Negative Normal Negative [facility] Comment on above: Performed By: #### C [id number] #### [address] [address] Esthela glabrata/krusei Not detected Normal Not Detected [facility] Comment on above: Performed By: #### C [id number] #### [address] [address] Esthela group Not detected Normal Not Detected [facility] Comment on above: Performed By: #### C [id number] #### [address] [address] Trichomonas vaginalis Not detected Normal Not Detected [facility] Comment on above: Performed By: #### C [id number] #### [address] [address] GENITOURINARY INFECTION (HTR X)on 07-06-2024 ACINETOBACTER BAUMANII 0 [facility] ACINETOBACTER BAUMANII Not detected [facility] ATOPOBIUM VAGINAE 0 [facility] ATOPOBIUM VAGINAE Not detected [facility] BVAB 2,3 (BACTERIAL VAGINOSIS ASSOCIATED BACTERIA 2, 3); MOBILUNCUS SPP 0 [facility] BVAB 2,3 (BACTERIAL VAGINOSIS ASSOCIATED BACTERIA 2, [...] Not detected [facility] PSEUDOMONAS AERUGINOSA 0 [facility] PSEUDOMONAS AERUGINOSA Not detected [facility] [...] Healthcare STREPTOCOCCUS AGALACTIAE (GROUP B STREP) 0 [facility] STREPTOCOCCUS AGALACTIAE (GROUP B STREP) Not detected [facility] STREPTOCOCCUS PYOGENES (GROUP A STREP) 0 [facility] STREPTOCOCCUS PYOGENES (GROUP A STREP) Not detected [facility] TET B, TET M 27.52 Abnormal [facility] TET B, TET M Detected Abnormal [facility] TRICHOMONAS VAGINALIS 0 [facility] TRICHOMONAS VAGINALIS Not detected N [facility] UREAPLASMA PARVUM 29.88 Abnormal [facility] UREAPLASMA PARVUM Detected Abnormal [facility] UREAPLASMA UREALYTICUM 0 [facility] UREAPLASMA UREALYTICUM Not detected [facility] - Chemistry and C hemistry - challengeon 07-04-2024 Bilirubin Ql (U) Negative [facility] Glucose [Mass/Vol] Negative [facility] Ketones Ql (U) Negative [facility] pH (U) 6 [pH] [facility] Specific gravity (U) [Rel density] 1.005 [facility] Urobilinogen (U) [Mass/Vol] 0.499203 mg/dL [facility] Laboratory - Hematology and Cell countson 07-04-2024 Hemoglobin Ql (U) Trace [facility] Laboratory - Urinalysison Nitrite Ql (U) Negative [facility] Protein Ql (U) Negative [facility] No Panel Informationon 07-04 Interpretation and review of laboratory results Abnormal [facility] LEUKOCYTES Trace [facility] D-DIMERon 10-23-2023 D DIMER 0.48 NINF [facility] Comment on above: Increases in D-Dimer [...] anticoagulant therapy, stress, and generalized hospitalization. [facility] ALL CBC WITH AUTO DIFFon BASOPHILS ABSOLUTE AUTO 0.1 [facility] Basophils/100 WBC (Bld) 0.7 % 0.2 - 2.0 % [facility] Eosinophils/100 WBC (Bld) 5.5 % 0.9 - 7.0 % [facility] Erythrocyte distribution width (RBC) [Ratio] 13.2 % 11.0 - 15.0 % [facility] Hematocrit (Bld) [Volume fraction] 40.8 % 36.0 - 48.0 % [facility] Hemoglobin (Bld) [Mass/Vol] 13.4 g/dL 12.0 - 16.0 g/dL [facility] IMMATURE GRANULOCYTES ABS AUTO 0.04 High [facility] Immature granulocytes/100 WBC (Bld) 0.4 % 0.0 - 0.5 % [facility] Interpretation and review of laboratory results Abnormal [facility] LYMPHOCYTES ABSOLUTE AUTO 2.7 [facility] Lymphocytes/100 WBC (Bld) 28.5 % 20.5 - 60.0 % [facility] MCH (RBC) [Entitic mass] 29.6 pg 26.7 - 34.0 pg [facility] MCHC (RBC) [Mass/Vol] 32.8 g/dL 29.9 - 35.2 g/dL [facility] MCV (RBC) [Entitic vol] 90.1 fL 81.0 - 99.0 fL [facility] MONOCYTES ABSOLUTE AUTO 0.6 [facility] Monocytes/100 WBC (Bld) 6.0 % 1.7 - 12.0 % [facility] NEUTROPHILS ABSOLUTE AUTO 5.6 [facility] Neutrophils/100 WBC (Bld) 58.9 % 43.0 - 75.0 % [facility] Platelet mean volume (Bld) [Entitic vol] 10.3 fL 9.5 - 13.5 fL [facility] TBH EO # 0.5 [facility] TB PLT 282 [facility] RBC 4.53 [facility] WBC 9.5 [facility] LIPASEon 11-05-2022 Lipase [Catalytic activity/Vol] 97.0 U/L Normal 73.0-393.0 [facility] Comment on above: Performed By: #### C MJ PALUMBO #### [facility] [address] [address] [address] Ann Watson PROF 14(COMP METB)on 023 Albumin [Mass/Vol] 3.7 g/dL Normal 3.4-5.0 [facility] Comment on above: Performed By: #### C MJ PALUMBO #### [facility] [address] [address] [address] Ann Watson Albumin/Globulin [Mass ratio] 1.2 {ratio} Normal [facility] Comment on above: Performed By: #### C MP, LIPA #### [facility] [address] [address] [address] Ann Watson ALP [Catalytic activity/Vol] 87 U/L Normal 46-116 [facility] Comment on above: Performed By: #### C MP, LIPA #### [facility] [address] [place] [address] [address] Ann Watson ALT [Catalytic activity/Vol] 14 U/L Normal 14-59 [facility] Comment on above: Performed By: #### C MP, LIPA #### [facility] [address] [address] [address] Ann Watson Anion gap [Moles/Vol] 7.6 mmol/L Normal [facility] Comment on above: Performed By: #### C MP, LIPA #### [facility] [address] [address] [address] Ann Watson AST [Catalytic activity/Vol] 12 U/L Critically low 15-37 [facility] Comment on above: Performed By: #### C MP, LIPA #### [facility] [address] [address] [address] Ann Watson Bilirubin [Mass/Vol] 0.5 mg/dL Normal 0.2-1.0 [facility] Comment on above: Performed By: #### C MP, LIPA #### [facility] [address] [address] [address] Ann Watson Calcium [Mass/Vol] 9.0 mg/dL Normal 8.5-10.1 [facility] Comment on above: Performed By: #### C MP, LIPA #### [facility] [address] [address] [address] Ann Watson Chloride [Moles/Vol] 107 mmol/L Normal 98-107 [facility] Comment on above: Performed By: #### C MP, LIPA #### [facility] [address] [address] [address] Ann Watson CO2 [Moles/Vol] 27.6 mmol/L Normal 21.0-32.[address] [facility] Comment on above: Performed By: #### C MP, LIPA #### [facility] [address] [address] [address] Ann Watson Creatinine [Mass/Vol] 0.59 mg/dL Normal 0.55-1.02 [facility] Comment on above: Performed By: #### C MP, LIPA #### [facility] [address] [address] [address] Ann Watson EGFR-AF [facility] LUCIAN >60 Normal >=60 [facility] Comment on above: Performed By: #### C MP, LIPA #### [facility] [address] [place] [address] Dr. Ann Watson EGFR-NON AF [facility]CIAN >60 Normal >=60 [facility] Comment on above: Performed By: #### C MP, LIPA #### [facility] [address] [address] [address] Ann Watson Globulin (S) [Mass/Vol] 3.2 g/dL Normal [facility] Comment on above: Performed By: #### C MP, LIPA #### [facility] [address] [place] [address] Dr. Ann Watson Glucose [Mass/Vol] 89 mg/dL Normal 74-106 [facility] Comment on above: Performed By: #### C MP, LIPA #### [facility] [address] [address] [address] Ann Watson Potassium [Moles/Vol] 4.2 mmol/L Normal 3.5-5.1 [facility] Comment on above: Performed By: #### C MP, LIPA #### [facility] [address] [address] [address] Ann Watson Protein [Mass/Vol] 6.9 g/dL Normal 6.4-8.2 [facility] Comment on above: Performed By: #### C MP, LIPA #### [facility] [address] [place] [address] Dr. Ann Watson Sodium [Moles/Vol] 138 mmol/L Normal 136-145 [facility] Comment on above: Performed By: #### C MP, LIPA #### [facility] [address] [place] [address] Dr. Ann Watson Urea nitrogen [Mass/Vol] 14.0 mg/dL Normal 7.0-18.0 [facility] Comment on above: Performed By: #### C MP, LIPA #### [facility] [address] [place] [address] Dr. Ann Watson Urea nitrogen/Creatinine [Mass ratio] 23.7 mg/mg Normal [facility] Comment on above: Performed By: #### C MP, LIPA #### [facility] [address] [place] [address] Dr. Ann Watson CBC AUTO DIFFon 10-10-2022 BASO # 0.0 103/ul Normal 0.0-0.1 [facility] Comment on above: Performed By: #### C BC #### [facility] [address] [place] [address] Dr. Ann Watson Basophils/100 WBC (Bld) 0.5 % Normal 0.2-2.0 [facility] Comment on above: Performed By: #### C BC #### [facility] [address] [place] [address] Dr. Ann Watson EO # 0.4 103/ul Normal 0.0-0.7 [facility] Comment on above: Performed By: #### C BC #### [facility] [address] [place] [address] Dr. Ann Watson Eosinophils/100 WBC (Bld) 7.4 % Critically high 0.9-7.0 [facility] Comment on above: Performed By: #### C BC #### [facility] [address] [place] [address] Dr. Ann Watson Erythrocyte distribution width (RBC) [Ratio] 12.4 % Normal 11.0-15.0 [facility] Comment on above: Performed By: #### C BC #### [facility] [address] [place] [address] Dr. Ann Watson Hematocrit (Bld) [Volume fraction] 46.5 % Normal 36.0-48.0 [facility] Comment on above: Performed By: #### C BC #### [facility] [address] [place] [address] Dr. Ann Watson Hemoglobin (Bld) [Mass/Vol] 14.4 g/dL Normal 12.0-16.0 [facility] Comment on above: Performed By: #### C BC #### [facility] [address] [place] [address] Dr. Ann Watson IG # 0.02 10e3/ul Normal 0.00-0.03 [facility] Comment on above: Performed By: #### C BC #### [facility] [address] [place] [address] Dr. Ann Watsno IG % 0.4 % Normal 0.0-0.5 [facility] Comment on above: Performed By: #### C BC #### [facility] [address] [place] [address] Dr. Ann Watson LYMPH # 2.3 103/ul Normal 1.2-3.8 [facility] Comment on above: Performed By: #### C BC #### [facility] [address] [place] [address] Dr. Ann Watson Lymphocytes/100 WBC (Bld) 42.0 % Normal 20.5-60.0 [facility] Comment on above: Performed By: #### C BC #### [facility] [address] [place] [address] Dr. Ann Watson MANUAL DIFF REQ NO Normal [facility] Comment on above: Performed By: #### C BC #### [facility] [address] [place] [address] Dr. Ann Watson MCH (RBC) [Entitic mass] 30.0 pg Normal 26.7-34.0 [facility] Comment on above: Performed By: #### C BC #### [facility] [address] [place] [address] Dr. Ann Watson MCHC (RBC) [Mass/Vol] 31.0 g/dL Normal 29.9-35.2 [facility] Comment on above: Performed By: #### C BC #### [facility] [address] [place] [address] Dr. Ann Watson MCV (RBC) [Entitic vol] 96.9 fL Normal 81.0-99.0 [facility] Comment on above: Performed By: #### C BC #### [facility] [address] [place] [address] Dr. Ann Watson MONO # 0.3 103/ul Normal 0.3-0.8 [facility] Comment on above: Performed By: #### C BC #### [facility] [address] [place] [address] Dr. Ann Watson Monocytes/100 WBC (Bld) 5.8 % Normal 1.7-12.0 [facility] Comment on above: Performed By: #### C BC #### [facility] [address] [place] [address] Dr. Ann Watson NEUT # 2.4 103/ul Normal 1.4-6.5 [facility] Comment on above: Performed By: #### C BC #### [facility] [address] [place] [address] Dr. Ann Watson Neutrophils/100 WBC (Bld) 43.9 % Normal 43.0-75.0 [facility] Comment on above: Performed By: #### C BC #### [facility] [address] [place] [address] Dr. Ann Watson Platelet mean volume (Bld) [Entitic vol] 10.9 fL Normal 9.5-13.5 [facility] Comment on above: Performed By: #### C BC #### [facility] [address] [place] [address] Dr. Ann Watson PLT 267 103/ul Normal 150-450 [facility] Comment on above: Performed By: #### C BC #### [facility] [address] [address] [address] Ann Watson RBC 4.80 106/ul Normal 4.20-5.40 [facility] Comment on above: Performed By: #### C BC #### [facility] [address] [place] [address] Dr. Ann Watson WBC 5.5 103/ul Normal 4.0-11.0 [facility] Comment on above: Performed By: #### C BC #### [facility] [address] [place] [address] Dr. Ann Watson FREE T3on 10-10-2022 FREE T3 2.38 pg/mlL Normal 2.18-3.98 [facility] Comment on above: Performed By: #### F T3, TSH, LIPID, BMP #### [facility] [address] [place] [address] Dr. Ann Watson FREE T4on 10-10-2022 Free T4 [Mass/Vol] 0.84 ng/dL Normal 0.76-1.46 [facility] Comment on above: Performed By: #### F T4 #### [facility] [address] [place] [address] Dr. Ann Watson GLYCOHEMOGLOBIN A1Con 2022 ADA RECOMMENDATION SEE BELOW Normal [facility] Comment on above: Result Comment: ADA RECOMMENDED LIMIT 4.0 - 6.0 ADA THERAPEUTIC TARGET < 7.0 ACTION SUGGESTED > 7.0 Performed By: #### A 1C #### [facility] [address] [place] [address] Dr. Ann Watson Glucose [Mass/Vol] 91 mg/dL Normal [facility] Comment on above: Performed By: #### A 1C #### [facility] [address] [place] [address] Dr. Ann Watson HbA1c (Bld) [Mass fraction] 4.8 % Normal 4.5-6.2 [facility] Comment on above: Performed By: #### A 1C #### [facility] [address] [place] [address] Dr. Ann Watson LIPID PROFILEon 10-10-2022 CHOL-HDL RATIO NORM SEE BELOW Normal [facility] Comment on above: Result Comment: 3.3 - 4.4 LOW RISK 4.4 - 7.1 AVERAGE RISK 7.1 - 11.0 MODERATE RISK >11.0 HIGH RISK Performed By: #### F T3, TSH, LIPID, BMP #### [facility] [address] [address] [address] Ann Watson Cholesterol [Mass/Vol] 169 mg/dL Normal <=200 [facility] Comment on above: Performed By: #### F T3, TSH, LIPID, BMP #### [facility] [address] [address] [address] Ann Watson Cholesterol in HDL [Mass/Vol] 52 mg/dL Normal 40-60 [facility] Comment on above: Performed By: #### F T3, TSH, LIPID, BMP #### [facility] [address] [address] [address] Ann Watson Cholesterol in LDL [Mass/Vol] 99.4 mg/dL Normal [facility] Comment on above: Performed By: #### F T3, TSH, LIPID, BMP #### [facility] [address] [address] [address] Ann Watson Cholesterol.total/Cho lesterol in HDL [Mass ratio] 3.3 {ratio} Normal [facility] Comment on above: Performed By: #### F T3, TSH, LIPID, BMP #### [facility] [address] [address] [address] Ann Watson HDL NORMAL > or = 60 mg/dl - LO W CARDIOVASCULAR RISK <40 mg/dl - HIGH CARDIOVASCULAR RISK Normal [facility] Comment on above: Performed By: #### F T3, TSH, LIPID, BMP #### [facility] [address] [address] [address] Ann Watson LDL CALC NORMAL SEE BELOW Normal [facility] Comment on above: Result Comment: <100 mg/dl OPTIMAL 100 - 129 mg/dl NEAR OR ABOVE OPTIMAL 130 - 159 mg/dl BORDERLINE HIGH 160 - 189 mg/dl HIGH >190 mg/dl VERY HIGH Performed By: #### F T3, TSH, LIPID, BMP #### [facility] [address] [address] [address] Ann Watson Triglyceride [Mass/Vol] 88 mg/dL Normal <=150 [facility] Comment on above: Performed By: #### F T3, TSH, LIPID, BMP #### [facility] [address] [address] [address] Ann Watson VLDL CALC 17.6 mg/dL Normal [facility] Comment on above: Performed By: #### F T3, TSH, LIPID, BMP #### [facility] [address] [address] [address] Ann Watson PROF CHEM 8 (BAS METB)on Anion gap [Moles/Vol] 11.5 mmol/L Normal [facility] Comment on above: Performed By: #### F T3, TSH, LIPID, BMP #### [facility] [address] [place] [address] Dr. Ann Watson Calcium [Mass/Vol] 8.7 mg/dL Normal 8.5-10.1 [facility] Comment on above: Performed By: #### F T3, TSH, LIPID, BMP #### [facility] [address] [address] [address] Ann Watson Chloride [Moles/Vol] 106 mmol/L Normal 98-107 [facility] Comment on above: Performed By: #### F T3, TSH, LIPID, BMP #### [facility] [address] [address] [address] Ann Watson CO2 [Moles/Vol] 27.3 mmol/L Normal 21.0-32.[address] [facility] Comment on above: Performed By: #### F T3, TSH, LIPID, BMP #### [facility] [address] [address] [address] Ann Watson Creatinine [Mass/Vol] 0.57 mg/dL Normal 0.55-1.02 [facility] Comment on above: Performed By: #### F T3, TSH, LIPID, BMP #### [facility] [address] [address] [address] Ann Watson EGFR-AF [facility]CIAN >60 Normal >=[address] [facility] Comment on above: Performed By: #### F T3, TSH, LIPID, BMP #### [facility] [address] [address] [address] Ann Watson EGFR-NON AF [facility]AN >60 Normal >=60 [facility] Comment on above: Performed By: #### F T3, TSH, LIPID, BMP #### [facility] [address] [address] [address] Ann Watson Glucose [Mass/Vol] 85 mg/dL Normal 74-106 [facility] Comment on above: Performed By: #### F T3, TSH, LIPID, BMP #### [facility] [address] [place] [address] Dr. Ann Watson Potassium [Moles/Vol] 3.8 mmol/L Normal 3.5-5.1 [facility] Comment on above: Performed By: #### F T3, TSH, LIPID, BMP #### [facility] [address] [address] [address] Ann Watson Sodium [Moles/Vol] 141 mmol/L Normal 136-145 [facility] Comment on above: Performed By: #### F T3, TSH, LIPID, BMP #### [facility] [address] [place] [address] Dr. Ann Watson Urea nitrogen [Mass/Vol] 12.0 mg/dL Normal 7.0-18.0 [facility] Comment on above: Performed By: #### F T3, TSH, LIPID, BMP #### [facility] [address] [place] [address] Dr. Ann Watson Urea nitrogen/Creatinine [Mass ratio] 21.1 mg/mg Normal [facility] Comment on above: Performed By: #### F T3, TSH, LIPID, BMP #### [facility] [address] [place] [address] Dr. Ann Watson TSHon 10-10-2022 TSH 3.064 uIU/mL Normal 0.358-3.740 [facility] Comment on above: Performed By: #### F T3, TSH, LIPID, BMP #### [facility] [address] [address] [address] Ann Watson Basophils Auto (Bld) [#/Vol] Ordered By: Nir Ctoto on 09-01-2022 Basophils (Bld) [#/Vol] 0.1 10*3/uL 0.0-0.2 [facility] Basophils/100 WBC Auto (Bld) Ordered By: Nir Cotto on 09-01-2022 Basophils/100 WBC (Bld) 0.7 % . [facility] Body fluid albumin measureme nt (mass/volume)Ordered By: Nir Cotto on 09-01-2022 Albumin (Body fld) [Mass/Vol] 3.7 g/dL 3.2-5.5 [facility] Complete Blood Count Auto Di ffon 09-01-2022 Basophils (Bld) [#/Vol] 0.871491970 10*3/uL Normal 0.0-0.2 10*3/uL [facility] Basophils/100 WBC (Bld) 0.700 % . % [facility] Eosinophils (Bld) [#/Vol] 0.461731698 10*3/uL High 0.0-0.45 10*3/uL [facility] Eosinophils/100 WBC (Bld) 7.200 % . % [facility] Erythrocyte distribution width (RBC) [Ratio] 13.700 % Normal 11.9-15.3 % [facility] Hematocrit (Bld) [Volume fraction] 40.300 % Normal 34.0-46.4 % [facility] Hemoglobin (Bld) [Mass/Vol] 13.723097 g/dL Normal 11.8-15.4 g/dL [facility] Lymphocytes (Bld) [#/Vol] 2.027223510 10*3/uL Normal 1.00-4.8 10*3/uL [facility] Lymphocytes/100 WBC (Bld) 33.300 % . % [facility] MCH (RBC) [Entitic mass] 30.2000 pg Normal 24.7-34.3 pg [facility] MCV (RBC) [Entitic vol] 90.6000 fL Normal 80-100 fL [facility] Monocytes (Bld) [#/Vol] 0.092522325 10*3/uL Normal 0.0-0.8 10*3/uL [facility] Monocytes/100 WBC (Bld) 6.500 % . % [facility] Neutrophils (Bld) [#/Vol] 3.240247713 10*3/uL Normal 1.8-7.7 10*3/uL [facility] Neutrophils/100 WBC (Bld) 52.300 % . % [facility] Platelet mean volume (Bld) [Entitic vol] 8.5000 fL Normal 6.3-10.7 fL [facility] WBC (Bld) [#/Vol] 7.782229609 10*3/uL Normal 3.8 -11.6 10*3/uL [facility] Complete Blood Count Auto Diff 7.3 10*3/uL Normal 3.8-11.6 10*3/uL [facility] Complete Blood Count Auto Diff 33.4 g/dL Normal 32.0-35.0 g/dL [facility] Complete Blood Count Auto Diff 0.1 /100{WBC} Normal 0-0.5 /100{WBC} [facility] Comprehensive Metabolic Pane sp 09-01-2022 Albumin [Mass/Vol] 3.945221 g/dL Normal 3.2-5.5 g/dL [facility] ALT [Catalytic activity/Vol] 14 U/L Normal 10-60 U/L [facility] Bilirubin [Mass/Vol] 0.3485244 mg/dL Normal 0.3- 1.2 mg/dL [facility] Calcium [Mass/Vol] 9.5031418 mg/dL Normal 8.2-10 .2 mg/dL [facility] CO2 [Moles/Vol] 24.27734424 mmol/L Normal 22.0-3 0.0 mmol/L [facility] Creatinine [Mass/Vol] 0.98671497 mg/dL Normal 0. 44-1.03 mg/dL [facility] Potassium [Moles/Vol] 4.39777267 mmol/L Normal 3 .5-5.1 mmol/L [facility] Protein [Mass/Vol] 5.825998 g/dL Low 6.1-7.9 g/dL [facility] Comprehensive Metabolic Panel > 60 [facility] Comprehensive Metabolic Panel 2.2 g/dL [facility] Creatinine and Glomerular fi ltration rate.predicted panel (S/P/Bld)Ordered By: Nir Cotto on 09-01-2022 Creatinine [Mass/Vol] 0.64 mg/dL 0.44-1.03 [facility] Eosinophils Auto (Bld) [#/Vo l]Ordered By: Nir Cotto on 09-01-2022 Eosinophils (Bld) [#/Vol] 0.5 10*3/uL 0.0-0.45 [facility] Eosinophils/100 WBC Auto (Bl d)Ordered By: Nir Cotto on 09-01-2022 Eosinophils/100 WBC (Bld) 7.2 % . [facility] Erythrocyte distribution wid th Auto (RBC) [Ratio]Ordered By: Nir Cotto on 09-01-2022 Erythrocyte distribution width (RBC) [Ratio] 13.7 % 11.9-15.3 [facility] Erythrocytes [#/volume] in B lood by Automated countOrdered By: Nir Cotto on 09-01-2022 RBC (Bld) [#/Vol] 4.45 10*6/uL Normal 3.60-5.00 [facility] Estimated glomerular filtrat ion rate (GFR) non- AmericanOrdered By: Nir Cotto on 09-01-2022 GFR/1.73 sq M.predicted among non-blacks MDRD (S/P/Bld) [Vol rate/Area] > 60 mL/Min [facility] Globulin Calc (S) [Mass/Vol] Ordered By: Nir Cotto on 09-01-2022 Globulin (S) [Mass/Vol] 2.2 g/dL [facility] Hematocrit Auto (Bld) [Volum e fraction]Ordered By: Nir Cotto on 09-01-2022 Hematocrit (Bld) [Volume fraction] 40.3 % 34.0-46.4 [facility] Hemoglobin [Mass/volume] in BloodOrdered By: Nir Cotto on 09-01-2022 Hemoglobin (Bld) [Mass/Vol] 13.5 g/dL 11.8-15.4 [facility] Leukocytes [#/volume] correc kofi for nucleated erythrocytes in Blood by Automated counOrdered By: Nir Cotto on 09-01-2022 WBC corrected for nucl RBC Auto (Bld) [#/Vol] 7.3 10*3/uL 3.8-11.6 [facility] Lymphocytes Auto (Bld) [#/Vo l]Ordered By: Nir Cotto on 09-01-2022 Lymphocytes (Bld) [#/Vol] 2.4 10*3/uL 1.00-4.8 [facility] Lymphocytes/100 WBC Auto (Bl d)Ordered By: Nir Cotto on 09-01-2022 Lymphocytes/100 WBC (Bld) 33.3 % . [facility] MCH Auto (RBC) [Entitic mass ]Ordered By: Nir Cotto on 09-01-2022 MCH (RBC) [Entitic mass] 30.2 pg 24.7-34.3 [facility] MCHC Auto (RBC) [Mass/Vol]Or dered By: Nir Cotto on 09-01-2022 MCHC (RBC) [Mass/Vol] 33.4 g/dL 32.0-35.0 [facility] MCV Auto (RBC) [Entitic vol] Ordered By: Nir Cotto on 09-01-2022 MCV (RBC) [Entitic vol] 90.6 fL 80-100 [facility] Monocytes Auto (Bld) [#/Vol] Ordered By: Nir Cotto on 09-01-2022 Monocytes (Bld) [#/Vol] 0.5 10*3/uL 0.0-0.8 [facility] Monocytes/100 WBC Auto (Bld) Ordered By: Nir Cotto on 09-01-2022 Monocytes/100 WBC (Bld) 6.5 % . [facility] Neutrophils Auto (Bld) [#/Vo l]Ordered By: Nir Cotto on 09-01-2022 Neutrophils (Bld) [#/Vol] 3.8 10*3/uL 1.8-7.7 [facility] Neutrophils/100 WBC Auto (Bl d)Ordered By: Nir Cotto on 09-01-2022 Neutrophils/100 WBC (Bld) 52.3 % . [facility] No Panel InformationOrdered By: Nir Cotto on 09-01-2022 Estimated GFR () > 60 mL/Min [facility] Comment on above: GFR estimated refere nce range: According to KDOQI guidelines, <60 ml/min/1.73m2 is sufficient to diagnose a patient with chronic kidney disease. Pharmacy Creatinine Clearance (Chem N/A [facility] Nucleated erythrocytes [Pres ence] in Blood by Automated countOrdered By: Nir Cotto on 09-01-2022 Nucleated RBC Auto Ql (Bld) 0.1 /100{WBC} 0-0.5 [facility] Platelet mean volume Auto (B ld) [Entitic vol]Ordered By: Nir Cotto on 09-01-2022 Platelet mean volume (Bld) [Entitic vol] 8.5 fL 6.3-10.7 [facility] Platelets [#/volume] in Bloo d by Automated countOrdered By: Nir Cotto on 09-01-2022 Platelets (Bld) [#/Vol] 270 10*3/uL Normal 150-450 10*3/uL [facility] Protein [Mass/volume] in Ser um or PlasmaOrdered By: Nir Cotto on 09-01-2022 Protein [Mass/Vol] 5.9 g/dL 6.1-7.9 [facility] Serum or plasma alanine martines otransferase measurement without P-5'-P (enzymatic activiOrdered By: Nir Cotto on 09-01-2022 ALT No additional P-5'-P [Catalytic activity/Vol] 14 U/L 10-60 [facility] Serum or plasma albumin/glob ulin mass ratioOrdered By: Nir Cotto on 09-01-2022 Albumin/Globulin [Mass ratio] 1.7 {ratio} [facility] Serum or plasma alkaline jessica sphatase measurement (enzymatic activity/volume)Ordered By: Nir Cotto on 09-01-2022 ALP [Catalytic activity/Vol] 64 U/L Normal 32-92 U/L [facility] Serum or plasma anion gap de terminationOrdered By: Nir Cotto on 09-01-2022 Anion gap [Moles/Vol] 8.5 mmol/L 6.0-15.0 [facility] Serum or plasma aspartate am inotransferase measurement (enzymatic activity/volume)Ordered By: Nir Cotto on 09-01-2022 AST [Catalytic activity/Vol] 16 U/L Normal 10-42 U/L [facility] Serum or plasma calcium sven urement (mass/volume)Ordered By: Nir Cotto on 09-01-2022 Calcium [Mass/Vol] 9.1 mg/dL 8.2-10.2 [facility] Serum or plasma chloride capri surement (moles/volume)Ordered By: Nir Cotto on 09-01-2022 Chloride [Moles/Vol] 106 mmol/L Normal 95-114 mmol/L [facility] Serum or plasma glucose sven urement (mass/volume)Ordered By: Nir Cotto on 09-01-2022 Glucose [Mass/Vol] 80 mg/dL Normal 70-100 mg/dL [facility] Comment on above: ADA recommended refe rence rangeRandom Glucose Reference Range is dependent on time and content of last meal. Glucose of more than 200 mg/dL in a nonstressed, ambulatory subject supports the diagnosis of Diabetes Mellitus. Serum or plasma potassium me asurement (moles/volume)Ordered By: Nir Cotto on 09-01-2022 Potassium [Moles/Vol] 4.1 mmol/L 3.5-5.1 [facility] Serum or plasma sodium measu rement (moles/volume)Ordered By: Nir Cotto on 09-01-2022 Sodium [Moles/Vol] 135 mmol/L Low 136-146 mmol/L [facility] Serum or plasma total biliru bin measurement (mass/volume)Ordered By: Nir Cotto on 09-01-2022 Bilirubin [Mass/Vol] 0.5 mg/dL 0.3-1.2 [facility] Serum or plasma total carbon dioxide measurement (moles/volume)Ordered By: Nir Cotto on 09-01-2022 CO2 [Moles/Vol] 24.6 mmol/L 22.0-30.0 [facility] Serum or plasma urea nitroge n measurement (mass/volume)Ordered By: Nir Cotto on 09-01-2022 Urea nitrogen [Mass/Vol] 9 mg/dL Normal 9-23 mg/dL [facility] Smooth Muscle Antibodyon Smooth Muscle Antibody 17 0-19 [facility] Other WBC Auto (Bld) [#/Vol]Ordere d By: Nir Cotto on 09-01-2022 WBC (Bld) [#/Vol] 7.3 10*3/uL 3.8-11.6 [facility] XR CHEST 2 Von 01-20-2022 XR [...] by: SALOMÓN CERVANTES Date: 2022-01-20 12:59 Normal [facility] Discharge Planning [id number] 10-30-2019 Discharge Planning Note2 Discharge Planning: Anticipated Discharge [id number] Assessment: Discharge Planning Assessment [id number] Stated Reason for Admissionseizures(1) [place] ([place]) Lives Withsignificant other; adult child(k[place]ofer)(1) [place] Resource/Environmental Concernsnone(1) Anticipated Transition [place](1) Services Anticipated at Transitionnon(1) Nursing Checklist: Lines/Cathetersremoved/ap propriate for next level of care Discharge Med Rec Reconciled with [place] Patient has Prescriptionsno prescriptions needed DME equipment orderedN/A Transportation for Discharge Confirmedyes Follow up Reviewedyes Discharge Instructions Reviewed WithPatient and Family Member Discharge Instructions Outcomeverbalize recall/understanding County InvolvementN/A Discharge Instructions Review Completed with Patient/Family (diet, activity, pt instructions)yes Discharge Documentation: Discharge/Transfer Date/[id number] 13:32 Discharge Modeambulatory Discharged Accompanied Byfamily member Transportation Methodprivate car Valuables/Medications/Bel ongings Returnedyes Security Envelope ReturnedN/A Final DispositionHome Electronic Signatures: Purnima Pritchett (RASHAUN) (Signed 30-Oct-2019 13:33) Authored: Discharge Planning Note2 Last Updated: 30-Oct-2019 13:33 by Purnima Pritchett (RASHAUN) References: 1. Data Referenced From Patient Profile - Adult v2 28-Oct-2019 10:36 Normal [facility] Discharge [id number] Discharge Profile2 Discharge Orders: Anticipated Discharge Date: Anticipated Discharge [id number] Hospital Providers: Provider RoleProvider Name Amberly Hernandez DNAR: DNAR Statusnone Activity: activity as tolerated. [...] at 30-Oct-2019 12:16:13 Appointments: Follow-Up Appointment 01: Physician/Dept/ServiceDr. 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 Overnight Events: Patient had an uneventful night. Objective Data: Objective Information: T PRBPSpO2 [id number]% Date/Time10/29 8: 8: 8: 8: 8:15 Range(36.1C - 36.2C [...] to LT bilaterally. Medication: Medications: Continuous Medications ------- No continuous medications are active Scheduled Medications ------- 1. Enoxaparin SubCutaneous: 40 mg SubCutaneous Every 24 Hours PRN Medications ------- 1. Acetaminophen: 650 mg Oral Every 4 [...] Dx: Seizure: Entered Date: 27-Oct-2019 13:53 Assessment: Classification of Paroxysmal Episodes 1. Diagnosis: Epileptogenic Zone: Episode Type: 1. 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 Lateralizing Sign: Etiology: Current Video/EEG No known Video/EEG Finding Impression and Plan Evolution in last 24 hours: No acute [...] protocol. 4. Sleep deprivation tonight until 3:AM Medication Table No known medications. Seizure Onset Table No known seizure onsets. Signature/Cosignature/Att estation: Note Completion: I am a: Resident/Fellow Attending Karri saw and evaluated the patient. I personally obtained the [place] and critical portions of the history and physical exam or was physically present for [place] and critical portions performed by the resident/fellow. I reviewed the resident/fellows documentation and discussed the patient with the resident/fellow. I agree with the resident/fellows medical decision making as documented in the note. I personally evaluated the patient [id number] Electronic Signatures: Amberly Pressley) (Signed 10-Nov-2019 15:05) Authored: Signature/Cosignature/Att estation Co-Signer: Service, Subjective Data, Objective Data, Assessment and Plan, Signature/Cosignature/Att estation Liane Charles (Fellow)) (Signed 29-Oct-2019 16:37) Authored: Service, Subjective Data, Objective Data, Assessment and Plan, Signature/Cosignature/Att estation Last Updated: 10-Nov-2019 15:05 by Amberly Pressley) Normal [facility] Admission Risk Screen - Adul ton 10-28-2019 Admission Risk Screen - Adult Allergies: Allergies: Phenergan: Unknown doxycycline: Unknown sulfa drugs: Unknown contrast (specific type unknown): Unknown Patient Verification: New W ID Band Applied in my Departmentno Type of ID Patient is WearingW wristband, but not applied here Patient Transferred from Other Facility ([facility], [facility],etc)no Patient Identity Verified Bypatient ID Band FULL [...] risk with low risk for associated injury Roosevelt Safety InterventionsWDL *orient to call system *instruct [...] Learning Preferencesverbal instruction Cultural Considerationsnone Developmental Considerationsnone Anglican Considerationsnone Learning Assessment (Other Learner): Other learner [...] Pain Level0 = None Expression of Pain (nonverbal)verbalization Chronic Painno Spiritual Screen: Are there any cultural, spiritual, oriental orthodox practices/values/needs that are important for us to knowno CAGE: Is this an injured patient at a Trauma Center ([facility]/[facility]/[place]/ [place]): no Vaccinations: Vaccination - Influenza Vaccination Screen: Is it flu season (between and January 11)Yes Screening for identified contraindications to influenza vaccination patient/caregiver refusal Vaccination - Pneumonia Vaccination Screen: Patient has received a previous pneumonia vaccine:no/unknown... Immunocompetent persons with underlying chronic conditions or reside in local intermodal truck driver care facilitieschronic liver disease, including cirrhosis Persons [...] 28-Oct-2019 11:33 by Samara Sanchez (HUSSAIN) Normal [facility] CBC AND DIFFERENTIALon 10-28 % AUTOMATED IMMATURE GRAN 0.4 % Normal 0.0 - 0.9 [facility] Comment on above: Result Comment: Perc ent differential counts (%) should be interpreted in the context of the absolute cell counts (cells/L). Performed By: #### C BCDF #### [facility] [address] [place] [address] Basophils (Bld) [#/Vol] 0.04 10*3/uL Normal 0.00 - 0.10 [facility] Comment on above: Performed By: #### C BCDF #### [facility] [address] [place] [address] Basophils/100 WBC (Bld) 0.5 % Normal 0.0 - 2.0 [facility] Comment on above: Performed By: #### C BCDF #### [facility] [address] [place] [address] Eosinophils (Bld) [#/Vol] 0.46 10*3/uL Normal 0.00 - 0.70 [facility] Comment on above: Performed By: #### C BCDF #### [facility] [address] [place] [address] Eosinophils/100 WBC (Bld) 5.9 % Normal 0.0 - 6.0 [facility] Comment on above: Performed By: #### C BCDF #### [facility] [address] [place] [address] Erythrocyte distribution width (RBC) [Ratio] 13.1 % Normal 11.5 - 14.5 [facility] Comment on above: Performed By: #### C BCDF #### [facility] [address] [place] [address] Hematocrit (Bld) [Volume fraction] 41.4 % Normal 36.0 - 46.0 [facility] Comment on above: Performed By: #### C BCDF #### [facility] [address] [place] [address] Hemoglobin (Bld) [Mass/Vol] 13.9 g/dL Normal 12.0 - 16.0 [facility] Comment on above: Performed By: #### C BCDF #### [facility] [address] [place] [address] Lymphocytes (Bld) [#/Vol] 2.45 10*3/uL Normal 1.20 - 4.80 [facility] Comment on above: Performed By: #### C BCDF #### [facility] [address] [place] [address] Lymphocytes/100 WBC (Bld) 31.2 % Normal 13.0 - 44.0 [facility] Comment on above: Performed By: #### C BCDF #### [facility] [address] [place] [address] MCHC (RBC) [Mass/Vol] 33.6 g/dL Normal 32.0 - 36.0 [facility] Comment on above: Performed By: #### C BCDF #### [facility] [address] [place] [address] MCV (RBC) [Entitic vol] 90 fL Normal 80 - 100 [facility] Comment on above: Performed By: #### C BCDF #### [facility] [address] [place] [address] Monocytes (Bld) [#/Vol] 0.59 10*3/uL Normal 0.10 - 1.00 [facility] Comment on above: Performed By: #### C BCDF #### [facility] [address] [place] [address] Monocytes/100 WBC (Bld) 7.5 % Normal 2.0 - 10.0 [facility] Comment on above: Performed By: #### C BCDF #### [facility] [address] [place] [address] Neutrophils (Bld) [#/Vol] 4.29 10*3/uL Normal 1.20 - 7.70 [facility] Comment on above: Performed By: #### C BCDF #### [facility] [address] [place] [address] Neutrophils/100 WBC (Bld) 54.5 % Normal 40.0 - 80.0 [facility] Comment on above: Performed By: #### C BCDF #### [facility] [address] [place] [address] Nucleated RBC/100 WBC (Bld) [Ratio] 0.0 /100 WBC Normal 0.0-0.0 [facility] Comment on above: Performed By: #### C BCDF #### [facility] [address] [place] [address] Platelets (Bld) [#/Vol] 254 10*3/uL Normal 150 - 450 [facility] Comment on above: Performed By: #### C BCDF #### [facility] [address] [place] [address] RBC (Bld) [#/Vol] 4.60 x10E12/L Normal 4.00 - 5.20 [facility] Comment on above: Performed By: #### C BCDF #### [facility] [address] [place] [address] WBC (Bld) [#/Vol] 7.9 10*3/uL Normal 4.4 - 11.3 [facility] Comment on above: Performed By: #### C BCDF #### [facility] [address] [place] [address] COMPREHENSIVE PANELon 2019 Albumin [Mass/Vol] 4.2 g/dL Normal 3.4 - 5.0 [facility] Comment on above: Performed By: #### C MP #### [facility] [address] [place] [address] ALP [Catalytic activity/Vol] 73 U/L Normal 33 - 110 [facility] Comment on above: Performed By: #### C MP #### [facility] [address] [place] [address] ALT [Catalytic activity/Vol] 8 U/L Normal 7 - 45 [facility] Comment on above: Result Comment: Tabatha ents treated with Sulfasalazine may generate falsely decreased results for ALT. Performed By: #### C MP #### [facility] [address] [place] [address] Anion gap [Moles/Vol] 11 mmol/L Normal 10 - 20 [facility] Comment on above: Performed By: #### C MP #### [facility] [address] [place] [address] AST [Catalytic activity/Vol] 11 U/L Normal 9 - 39 [facility] Comment on above: Performed By: #### C MP #### [facility] [address] [place] [address] Bilirubin [Mass/Vol] 0.5 mg/dL Normal 0.0 - 1.2 [facility] Comment on above: Performed By: #### C MP #### [facility] [address] [place] [address] Calcium [Mass/Vol] 9.4 mg/dL Normal 8.6 - 10.6 [facility] Comment on above: Performed By: #### C MP #### [facility] [address] [place] [address] Chloride [Moles/Vol] 108 mmol/L High 98 - 107 [facility] Comment on above: Performed By: #### C MP #### [facility] [address] [place] [address] Creatinine [Mass/Vol] 0.55 mg/dL Normal 0.50 - 1.05 [facility] Comment on above: Performed By: #### C MP #### [facility] [address] [place] [address] GFR- AM. >60 Normal >60 [facility] Comment on above: Result Comment: CALC ULATIONS OF ESTIMATED GFR ARE PERFORMED USING THE MDRD STUDY EQUATION FOR THE IDMS-TRACEABLE CREATININE METHODS. CLIN CHEM 2007;53:766-72 Performed By: #### C MP #### [facility] [address] [place] [address] GFR-NON AM. >60 Normal >60 [facility] Comment on above: Performed By: #### C MP #### [place] [address] [place] [address] Glucose [Mass/Vol] 77 mg/dL Normal 74 - 99 [facility] Comment on above: Performed By: #### C MP #### [facility] [address] [place] [address] HCO3 (Bld) [Moles/Vol] 27 mmol/L Normal 21 - 32 [facility] Comment on above: Performed By: #### C MP #### [facility] [address] [place] [address] Potassium [Moles/Vol] 3.7 mmol/L Normal 3.5 - 5.3 [facility] Comment on above: Performed By: #### C MP #### [facility] [address] [place] [address] Protein [Mass/Vol] 6.3 g/dL Low 6.4 - 8.2 [facility] Comment on above: Performed By: #### C MP #### [facility] [address] [place] [address] Sodium [Moles/Vol] 142 mmol/L Normal 136 - 145 [facility] Comment on above: Performed By: #### C MP #### [facility] [address] [place] [address] Urea nitrogen [Mass/Vol] 8 mg/dL Normal 6 - 23 [facility] Comment on above: Performed By: #### C MP #### [facility] [address] [place] [address] History and Physical - Neuro -Epilepsyon 10-28-2019 [...] frequently. The patient first sought treatment at [facility] ([place]), who performed an EEG [...] though did not have any symptoms until 2017, when they returned. On their return, this [...] Due to recurrent symptoms she presented to [facility] and had CT which she was told [...] had a routine EEG in February 2018 ([facility]), which described a normal EEG with good background, but occasionally featured sharply contoured waves though did not give location. Epilepsy risk factors - Born at term by after uneventful , with no known complications at . - Normal developmental milestones - No history of febrile convulsion or LEAD JANITOR infections. - No family history of epilepsy. - No history of major head trauma with loss of consciousness. - No history of LEAD JANITOR surgery. REVIEW OF SYSTEMS: 14 system review negative except for mentioned above. PAST MEDICAL AND SURGICAL HISTORY: Autoimmune hepatitis Eosinophilic esophagitis Asthmas Left knee meniscal tear Tonsils, adenoids JAILYN-USO (Left oophorectomy) FAMILY HISTORY: - No seizures or epilepsy in the family - Uncle with brain cancer - Father with stroke SOCIAL HISTORY: -Occupation: [employer] ([employer]) -Smoking: Never -Alcohol: Denies -Illicit drugs: Denies ALLERGY: Contrast dye CURRENT MEDICATION: None Allergies: Phenergan: Unknown doxycycline: Unknown sulfa drugs: Unknown contrast (specific type unknown): Unknown Medications Prior to Admission: Outpatient Meds have not been reviewed. Objective Information: Objective Information: T PRBPSpO2 [id number]/[id number]% Date/Time10/28 10: 11: 11 11:00 Range(36.5C - [...] light touch all 4 extremities. COORDINATION: - Ayvikp-Crea-Jnwlle: intact without dysmetria or overshoot in both upper extremities. - Heel to Goldstein: intact in both lower extremities GAIT: - Unable to test due to vEEG monitoring. Medications: Medications: Continuous Medications ------- No continuous medications are active Scheduled Medications ------- 1. Enoxaparin SubCutaneous: 40 mg SubCutaneous Every 24 Hours PRN Medications ------- 1. Acetaminophen: 650 mg Oral Every 4 [...] Regular diet DVT Enoxaparin subcutaneous Full Code Signatures/Attestation/Ce rtification: Note Completion: I am a: Resident/Fellow Attending [...] the note. I personally evaluated the patient [id number] Attending Provider Inpatient Certification StatementI certify this patients need for inpatient care based on the above documentation including; the order to admit as inpatient, the anticipated length of stay, diagnosis, problem list and plan of care, and discharge plan. Admission Order - View OnlyCurrent Admission Order. Admit to Inpatient Adult [facility] Admitting Diagnosis, R56.9 Seizure Admitting Service, Neurology Level of Care, Telemetry EMU admission Alvaro Freeman Electronic Signatures: Amberly Pressley) (Signed 10-Nov-2019 15:01) Authored: Medications Prior to Admission, Signatures/Attestation/Ce rtification Co-Signer: History of Present Illness, Objective, Assessment and Plan, Signatures/Attestation/Ce rtification Alvaro Freeman (Resident)) (Signed 28-Oct-2019 13:56) Authored: History of Present Illness, Comorbidities, Allergies, Medications Prior to Admission, Objective, Assessment and Plan, Signatures/Attestation/Ce rtification Last Updated: 10-Nov-2019 15:01 by Amberly Pressley) References: 1. Data Referenced From Patient Profile - Adult v2 28-Oct-2019 10:36 Normal [facility] Patient Profile - Adult v2on 10-28-2019 Patient Profile - Adult v2 Profile: Initial Info: How to be Addressedjill Spoken Language PreferredEnglish Are you currently using the Personal Electronic Health Record or SwingPalyes Stated Reason for Admissionseizures Wants Family/Rep Notified of Admissionn/a; family present Notify PCPdo not notify PCP Informed of Patient Visiting Rightsyes [place] [facility] Medications Brought to Hospitalno General Health: Weight in kg86.6 kilogram(s) Weight in ybo027 pound(s) Height in feet5 feet Height in inches3 inch(es) Height in cm160 centimeter(s) BMI (kg/m2)33.828 square meter Weight Methodstated Scale Typebed Height Methodstated [facility] Based Care: How would you like [...] Are You no Relationship/Environ: Primary Source of Support/Comfortchild(kristofer) Lives Withsignificant other; adult child(kristofer) Living Arrangementshouse Resource/Environmental Concernsnone Anticipated Transition [place] Services Anticipated at Transitionnone Significant IndicatorsComplete Information [...] 28-Oct-2019 11:37 by Samara Sanchez (HUSSAIN) Normal [facility] Chart Updateon 10-25-2019 Chart Update Active Problems Chronic headaches (784.0) (R51) Classic migraine with aura (346.00) (G43.109) Common migraine without aura (346.10) (G43.009) Facial numbness (782.0) (R20.0) Hemisensory deficit (781.99) (R29.818) Nonspecific paroxysmal spell (780.09) (R40.4) Sensory disturbance (782.0) (R20.9) Spell of dizziness (780.4) (R42) Chart Update Progress Note Free Text_: Supplemental records obtained from [facility]. Pertinent summary below: 01/18/2018 Presented to [facility] ED with numbness of the right [...] ASA 81mg for paresthesias. 02/17/2018 Presented to [facility] ED with right-sided facial numbness and [...] from prolonged EEG monitoring. 12/07/2018 Presented to [facility] ED with multiple vague complaints of dizziness (no vertigo), funny feeling on the right side of her face (worse when standing up). Reported a history of seizures but an intolerance for levetiracetam. Denied headache, neck stiffness. No other symptoms. Exam was normal. CT head was unremarkable. Advised to increase fluid increase fluids and was discharged home. 02/01/2019 Presented to [facility] ED with palpitations and arrhythmia, feeling like her heart was skipping beats. Denied any nausea, SOB, CP. No recent illness. No fevers, chills, diarrhea, abdominal pain. Would occur several times a minute initially, then became less frequent. Observed to have PVCs on exam. Discharged home with Holter (unknown if had placed). 06/12/2019 Presented to [facility] ED with nausea, vomiting, and diarrhea. Reported using multiple scopolamine patches (5 patches in 6 days, Rxd for 1 patch every 3 days; reported more given getting wet while scuba-diving). Noted she felt nauseated with blurred vision, dry mouth, urinary frequency, and warm/heavy feeling in her body. No confusion, agitation, or hallucinations. [place] to be dehydrated. Given fluids and discharged. 06/14/2019 Presented to [facility] ED with severe nausea, vomiting, dizziness, lightheadedness, blurry vision, diarrhea, and headache. Had recently removed a scopolamine patch after a cruise to the [facility]. Stated also her seizures are acting up, which she relayed were focal, left-sided seizures that cant be seen. Not on AEDs, but reported seeing a neurologist at [facility]. Exam was unremarkable, though noted to be anxious and tearful. CT head was normal. Given Flagyl 500mg PO (c/f GI illness after recent trip) and discharged home. 07/19/2019 Presented to [facility] ED with dizziness. Stated she thinks [...] visit. Alvino Beltrán MD [facility] Pager: [phone] Signatures Electronically signed by : Didier Beltrán MD; Oct 25 2019 1:55PM EST (Author) Normal [facility] Vital Signs Date Time Vital Sign Value Performing Clinician Facility 01-30-2025 10:36-0400 Body mass index (BMI) [Ratio] 36.31 kg/m2 Christin Rowe PREVENTIVE MAINTENANCE COORDINATOR Work Phone: [facility] 01-30-2025 10:36-0400 Body temperature 98.71 [degF] Christin Rowe PREVENTIVE MAINTENANCE COORDINATOR Work Phone: [facility] 01-30-2025 10:36-0400 Body weight 92.99 kg Christin Rowe PREVENTIVE MAINTENANCE COORDINATOR Work Phone: [facility] 01-30-2025 10:36-0400 Diastolic blood pressure 88 mm[Hg] Christin Rowe PREVENTIVE MAINTENANCE COORDINATOR Work Phone: [facility] 01-30-2025 10:36-0400 Heart rate 88 /min Christin Rowe PREVENTIVE MAINTENANCE COORDINATOR Work Phone: [facility] 01-30-2025 10:36-0400 SaO2% (BldA) [Mass fraction] 99 % Christin Rowe PREVENTIVE MAINTENANCE COORDINATOR Work Phone: [facility] 01-30-2025 10:36-0400 Systolic blood pressure 122 mm[Hg] Christin Rowe PREVENTIVE MAINTENANCE COORDINATOR Work Phone: [facility] 01-16-2025 16:21-0400 Body mass index (BMI) [Ratio] 36.31 kg/m2 Bree Benitez PREVENTIVE MAINTENANCE COORDINATOR Work Phone: [facility] 01-16-2025 16:21-0400 Body temperature 97.81 [degF] Bree Benitez PREVENTIVE MAINTENANCE COORDINATOR Work Phone: [facility] 01-16-2025 16:21-0400 Body weight 92.99 kg Bree Benitez PREVENTIVE MAINTENANCE COORDINATOR Work Phone: [facility] 01-16-2025 16:21-0400 Diastolic blood pressure 82 mm[Hg] Bree Benitez PREVENTIVE MAINTENANCE COORDINATOR Work Phone: [facility] 01-16-2025 16:21-0400 Heart rate 87 /min Bree Benitez PREVENTIVE MAINTENANCE COORDINATOR Work Phone: [facility] 01-16-2025 16:21-0400 Respiratory rate 20 /min Bree Benitez PREVENTIVE MAINTENANCE COORDINATOR Work Phone: [facility] 01-16-2025 16:21-0400 SaO2% (BldA) [Mass fraction] 99 % Bree Benitez PREVENTIVE MAINTENANCE COORDINATOR Work Phone: [facility] 01-16-2025 16:21-0400 Systolic blood pressure 128 mm[Hg] Bree Benitez PREVENTIVE MAINTENANCE COORDINATOR Work Phone: [facility] 09-15-2024 13:57-0500 Body height 160 cm Viral Lewis MD Work Phone: [facility] 09-15-2024 13:57-0500 Body mass index (BMI) [Ratio] 36.14 kg/m2 Viral Lewis MD Work Phone: [facility] 09-15-2024 13:57-0500 Body temperature 97.5 [degF] Viral Lewis MD Work Phone: [facility] 09-15-2024 13:57-0500 Body weight 92.53 kg iVral Lewis MD Work Phone: [facility] 09-15-2024 13:57-0500 Diastolic blood pressure 70 mm[Hg] Viral Lewis MD Work Phone: [facility] 09-15-2024 13:57-0500 Heart rate 82 /min Viral Lewis MD Work Phone: [facility] 09-15-2024 13:57-0500 Respiratory rate 20 /min Viral Lewis MD Work Phone: [facility] 09-15-2024 13:57-0500 SaO2% (BldA) [Mass fraction] 98 % Viral Lewis MD Work Phone: [facility] 09-15-2024 13:57-0500 Systolic blood pressure 120 mm[Hg] Viral Lewis MD Work Phone: [facility] 08-01-2024 15:16-0500 Diastolic blood pressure 70 mm[Hg] Viral Lewis MD Work Phone: [facility] 08-01-2024 15:16-0500 Heart rate 70 /min Viral Lewis MD Work Phone: [facility] 08-01-2024 15:16-0500 Respiratory rate 16 /min Viral Lewis MD Work Phone: [facility] 08-01-2024 15:16-0500 SaO2% (BldA) [Mass fraction] 96 % Viral Lewis MD Work Phone: [facility] 08-01-2024 15:16-0500 Systolic blood pressure 104 mm[Hg] Viral Lewis MD Work Phone: [facility] 08-01-2024 11:18-0500 Body temperature 97.8 [degF] Viral Lewis MD Work Phone: [facility] 08-01-2024 06:21-0500 Body weight 91.6 kg Viral Lewis MD Work Phone: [facility] 07-31-2024 15:07-0500 Body height 160.02 cm Viral Lewis MD Work Phone: [facility] 07-31-2024 13:10-0500 Diastolic blood pressure 69 mm[Hg] Viral Lewis MD Work Phone: [facility] 07-31-2024 13:10-0500 Systolic blood pressure 140 mm[Hg] Viral Lewis MD Work Phone: [facility] 07-31-2024 12:41-0500 Body temperature 98.8 [degF] Viral Lewis MD Work Phone: [facility] 07-31-2024 12:41-0500 Heart rate 80 /min Viral Lewis MD Work Phone: [facility] 07-31-2024 12:41-0500 Respiratory rate 20 /min Viral Lewis MD Work Phone: [facility] 07-31-2024 12:41-0500 SaO2% (BldA) [Mass fraction] 97 % Viral Lewis MD Work Phone: [facility] 07-31-2024 08:02-0500 Body height 161.29 cm Viral Lewis MD Work Phone: [facility] 07-31-2024 08:02-0500 Body weight 90 kg Viral Lewis MD Work Phone: [facility] 07-04-2024 14:50-0400 Body temperature 97.5 [degF] Dallin Martinez PREVENTIVE MAINTENANCE COORDINATOR Work Phone: [facility] 07-04-2024 14:50-0400 Heart rate 86 /min Dallin Martinez PREVENTIVE MAINTENANCE COORDINATOR Work Phone: [facility] 07-04-2024 14:50-0400 SaO2% (BldA) [Mass fraction] 99 % Dallin Martinez PREVENTIVE MAINTENANCE COORDINATOR Work Phone: [facility] 01-12-2024 14:41-0400 Body height 158.12 cm [facility] 01-12-2024 14:41-0400 Body mass index (BMI) [Ratio] 37 kg/m2 [facility] 01-12-2024 14:41-0400 Body weight 92.78 kg [facility] 01-12-2024 14:41-0400 Diastolic blood pressure 84 mm[Hg] [facility] 01-12-2024 14:41-0400 Heart rate 69 /min [facility] 01-12-2024 14:41-0400 Respiratory rate 18 /min [facility] 01-12-2024 14:41-0400 SaO2% (BldA) [Mass fraction] 98 % [facility] 01-12-2024 14:41-0400 Systolic blood pressure 127 mm[Hg] [facility] 10-15-2023 14:51-0500 Body height 160 cm Shaikh Jose ADAM Work Phone: [facility] 10-15-2023 14:51-0500 Body mass index (BMI) [Ratio] 38.09 kg/m2 Shaikh Jose ADAM Work Phone: [facility] 10-15-2023 14:51-0500 Body temperature 96.91 [degF] Shaikh Jose ADAM Work Phone: [facility] 10-15-2023 14:51-0500 Body weight 97.52 kg Shaikh Jose ADAM Work Phone: [facility] 10-15-2023 14:51-0500 Diastolic blood pressure 80 mm[Hg] Shaikh Jose ADAM Work Phone: [facility] 10-15-2023 14:51-0500 Heart rate 79 /min Shaikh Jose ADAM Work Phone: [facility] 10-15-2023 14:51-0500 SaO2% (BldA) [Mass fraction] 96 % Shaikh Jose ADAM Work Phone: [facility] 10-15-2023 14:51-0500 Systolic blood pressure 100 mm[Hg] Shaikh Jose ADAM Work Phone: [facility] 04-30-2023 15:00-0400 Body height 160.02 cm Faina Miller Other [facility] 04-30-2023 15:00-0400 Body mass index (BMI) [Ratio] 36.1 kg/m2 Faina Miller Other [facility] 04-30-2023 15:00-0400 Body temperature 98 [degF] Faina Miller Other [facility] 04-30-2023 15:00-0400 Body weight 92.44 kg Faina Miller Other [facility] 04-30-2023 15:00-0400 Diastolic blood pressure 76 mm[Hg] Faina Miller Other [facility] 04-30-2023 15:00-0400 Respiratory rate 18 /min Faina Paul Other [facility] 04-30-2023 15:00-0400 SaO2% (BldA) [Mass fraction] 99 % Faina Miller Other [facility] 04-30-2023 15:00-0400 Systolic blood pressure 122 mm[Hg] Faina Miller Other [facility] 12-16-2021 16:30-0400 Body height 160.02 cm Nir Cotto Other [facility] 12-16-2021 16:30-0400 Body mass index (BMI) [Ratio] 31.35 kg/m2 Nir Cotto Other [facility] 12-16-2021 16:30-0400 Body weight 80.29 kg iNr Dallin Other [facility] 10-23-2021 15:55-0500 Body height 160.02 cm Ellie Kemp Other [facility] 10-23-2021 15:55-0500 Body mass index (BMI) [Ratio] 31.35 kg/m2 Ellie Viridiana Other [facility] 10-23-2021 15:55-0500 Body temperature 97.9 [degF] Ellie Viridiana Other [facility] 10-23-2021 15:55-0500 Body weight 80.29 kg Ellie Viridiana Other [facility] 10-23-2021 15:55-0500 Diastolic blood pressure 90 mm[Hg] Ellie Viridiana Other [facility] 10-23-2021 15:55-0500 Respiratory rate 18 /min Ellie Viridiana Other [facility] 10-23-2021 15:55-0500 SaO2% (BldA) [Mass fraction] 99 % Ellie Viridiana Other [facility] 10-23-2021 15:55-0500 Systolic blood pressure 143 mm[Hg] Ellie Viridiana Other [facility] 09-24-2021 15:00-0500 Body height 160.02 cm Nir Dallin Other [facility] 09-24-2021 15:00-0500 Body mass index (BMI) [Ratio] 29.23 kg/m2 Nir Cotto Other [facility] 09-24-2021 15:00-0500 Body weight 74.84 kg Nir Cotto Other [facility] Other Encounters Encounter Date Encounter Type Care Provider Facility Start: 02-16-2025 End: 02-16-2025 ambulatory Viral Lewis MD Facility:[facility] Start: 02-01-2025 End: 02-01-2025 ambulatory Viral Lewis MD Facility:[facility] Start: 02-01-2025 End: 02-01-2025 ambulatory Viral Lewis MD Facility:[facility] Start: 01-30-2025 End: 01-30-2025 Telephone encounter Christin Rowe PREVENTIVE MAINTENANCE COORDINATOR Work Phone: [facility] Start: 01-30-2025 End: 01-30-2025 Office outpatient visit 25 minutes Christin Rowe PREVENTIVE MAINTENANCE COORDINATOR Work Phone: [facility] Comment on above: Vaginal burning (Katia freddy Dx); Dysuria Start: 01-30-2025 End: 01-30-2025 ambulatory CHRISTIN ROWE Not Available Start: 01-16-2025 End: 01-16-2025 Office outpatient visit 25 minutes Bree Benitez PREVENTIVE MAINTENANCE COORDINATOR Work Phone: [facility] Comment on above: Dysuria (Primary Dx) Start: 01-16-2025 End: 01-16-2025 ambulatory BREE BENITEZ Not Available Start: 01-06-2025 End: 01-06-2025 ambulatory Wil Crain PA-C Facility:[facility] Start: 09-15-2024 End: 09-15-2024 Bamboo flowsheet Viral Lewis MD Work Phone: [facility] Start: 09-15-2024 End: 09-15-2024 Bamboo flowsheet Viral Lewis MD Work Phone: [facility] Start: 09-15-2024 End: 09-15-2024 Office outpatient visit 25 minutes Viral Lewis MD Work Phone: [facility] Comment on above: Duodenal ulcer (Prim ghassan Dx); Nonalcoholic fatty liver disease; Chronic rhinosinusitis; Class 2 obesity due to excess calories without serious comorbidity with body mass index (BMI) of 37.0 to 37.9 in adult Start: 09-15-2024 End: 09-15-2024 ambulatory VIRAL LEWIS Not Available Start: 09-13-2024 End: 09-13-2024 ambulatory Melissa L Ly Facility:[facility] Start: 08-29-2024 End: 08-29-2024 ambulatory Melissa L Ly Facility:[facility] Start: 08-24-2024 End: 08-24-2024 ambulatory Viral Lewis MD Facility:[facility] Start: 08-24-2024 End: 08-24-2024 ambulatory Viral Lewis MD Facility[facility] Start: 08-01-2024 Non-patient / Non-visit Viral Lewis MD Work Phone: [facility] Work Phone: Start: 07-31-2024 End: 08-01-2024 ambulatory Viral Lewis Facility:[facility] Start: 07-31-2024 End: 08-01-2024 Evaluation and management of inpatient Viral Lewis MD Work Phone: [facility] [place] [facility] Work Phone: Start: 07-31-2024 End: 08-01-2024 observation encounter Viral Lewis MD Work Phone: [facility] Work Phone: Start: 07-22-2024 End: 07-22-2024 ambulatory Viral Lewis MD Facility:[facility] Start: 07-19-2024 End: 07-19-2024 ambulatory Mavis Candelario PA-C Facility:[facility] Start: 07-17-2024 End: 08-04-2024 Refill Dallin Martinez PREVENTIVE MAINTENANCE COORDINATOR Work Phone: [facility] Comment on above: Acute vaginitis Start: 07-04-2024 End: 07-04-2024 ambulatory DALLIN MARTINEZ Not Available Start: 07-04-2024 End: 07-04-2024 Office outpatient visit 25 minutes Dallinconchis Martinez PREVENTIVE MAINTENANCE COORDINATOR Work Phone: [facility] Comment on above: Acute vaginitis (Katia freddy Dx); Dysuria Start: 07-04-2024 End: 07-06-2024 External Result Encounter Dallin Martinez PREVENTIVE MAINTENANCE COORDINATOR Work Phone: [facility] External Department Unsolicited Start: 07-04-2024 End: 07-06-2024 External Result Encounter Dallin Martinez PREVENTIVE MAINTENANCE COORDINATOR Work Phone: [facility] External Department Unsolicited Start: 03-22-2024 End: 03-22-2024 ambulatory VIRAL LEWIS Not Available Start: 03-22-2024 Patient encounter procedure Dallinconchis DanielJerusalem PREVENTIVE MAINTENANCE COORDINATOR Work Phone: [facility] Start: 03-02-2024 End: 03-02-2024 ambulatory SHAIKH JOSE Not Available Start: 03-01-2024 End: 03-01-2024 ambulatory ANTHONY RIDDLE Not Available Start: 02-24-2024 End: 02-24-2024 ambulatory ANTHONY RIDDLE Not Available Start: 02-18-2024 End: 02-18-2024 ambulatory LINWOOD MENA Not Available Start: 01-12-2024 End: 01-12-2024 ambulatory [facility] Work Phone: Start: 01-12-2024 End: 01-12-2024 Patient encounter procedure [facility] Work Phone: Start: 10-23-2023 Clinisync Result Encounter Shaikh Jose [...] hepatitis treated with steroids (CMS/HCC) Start: 10-15-2023 Bamboo flowsheet Shaikh Jose ADAM Work Phone: [facility] Start: 10-15-2023 Bamboo flowsheet Shaikh Jose ADAM Work Phone: [facility] Start: 10-15-2023 Clinisync Result Encounter Shaikh Jose ADAM Work Phone: [facility] External Department Unsolicited Start: 05-05-2023 End: 05-05-2023 ambulatory Faina Miller Other [facility] Start: 05-05-2023 Telephone encounter Faina Miller [facility] [address] Start: 04-30-2023 End: 04-30-2023 Departed Referred [facility] [employer]UFTER Faina Miller Work Phone: [facility] [place] Work Phone: Start: 04-30-2023 End: 04-30-2023 ambulatory Fania Miller Other [facility] Start: 04-30-2023 Office outpatient visit 15 minutes Faina Miller [facility] Start: 11-05-2022 End: 11-06-2022 ambulatory SHAIKH Vivian GARCIA Facility:[facility] Start: 10-14-2022 Encounter for genera l adult medical examination without abnormal findings DR VIRAL LEWIS [facility] Start: 10-10-2022 End: 10-11-[address] VIRAL LEWIS Facility:[facility] Start: 10-10-2022 End: 10-11-2022 Encounter for general adult medical examination without abnormal findings DR VIRAL LEWIS Facility:[facility] Start: 09-03-2022 End: 09-03-2022 ambulatory Nir Cotto Other [facility] Start: 09-03-2022 Telephone encounter Nir vogel [facility] Start: 09-01-2022 End: 09-01-2022 Patient encounter procedure MD Viral Lewis Work Phone: [facility] [place] Start: 09-01-2022 End: 09-01-2022 ambulatory MD Viral Lewis Work Phone: [facility] Work Phone: Start: 09-01-2022 Telephone encounter Nir vogel [facility] Start: 01-20-2022 End: 01-21-2022 ambulatory SHAIKH Vivian LEONARDOMCIKY Facility:[facility] Start: 12-16-2021 End: 12-16-2021 ambulatory Nir Cotto Other [facility] Start: 12-16-2021 Patient encounter procedure Nir Cotto [facility] Start: 10-23-2021 End: 10-23-2021 ambulatory Ellie Kemp Other [facility] Start: 10-23-2021 Office outpatient visit 15 minutes Ellie Kemp [facility] Start: 10-21-2021 End: 10-21-2021 ambulatory Nir Cotto Other [facility] Start: 10-21-2021 Telephone encounter Nir vogel [facility] Start: 10-11-2021 End: 10-11-2021 ambulatory Nir Cotto Other [facility] Start: 10-11-2021 Telephone encounter Nir vogel [facility] Start: 09-24-2021 End: 09-24-2021 ambulatory Nir Cotto Other [facility] Other Start: 09-24-2021 Office outpatient visit 15 minutes Nir Cotto [facility] Start: 02-14-2020 Patient encounter procedure El[facility] Buc[facility] [address] Work Phone: Start: 10-03-2019 Patient encounter procedure Elian Buczek UI[facility] [address] Work Phone: Start: 05-04-2018 Patient encounter procedure Elian Buczek JE[facility]lfw[facility] [address] Work Phone: Start: 03-05-2018 Patient encounter procedure Elian Buczek VW[facility] [address] [address] Work Phone: Procedures Date Procedure Procedure Detail Performing Clinician Start: 01-30-2025 POCT CEPHEID MVP Christin Rowe PREVENTIVE MAINTENANCE COORDINATOR Work Phone: Start: 01-30-2025 COMPLICATED GENITOURINARY INFECTION (HTRX) Christin Rowe PREVENTIVE MAINTENANCE COORDINATOR Work Phone: Start: 01-30-2025 Urnls dip stick/tablet rgnt auto w/o microscopy Aramis Goodson DO Work Phone: Start: 01-16-2025 URETHRITIS/DISCHARGE (HTRX) Bree nunn PREVENTIVE MAINTENANCE COORDINATOR Work Phone: Start: 01-16-2025 Urnls dip stick/tablet rgnt auto w/o microscopy Aramis Goodson DO Work Phone: Start: 08-01-2024 Esophagogastroduodenoscopy Viral Lewis MD Work Phone: Start: 07-31-2024 CT of abdomen and pelvis without contrast Viral Lewis MD Work Phone: Start: 07-04-2024 GENITOURINARY INFECTION (HTRX) Dallin Martinez PREVENTIVE MAINTENANCE COORDINATOR Work Phone: Start: 07-04-2024 Urnls dip stick/tablet rgnt auto w/o microscopy Aramis Goodson DO Work Phone: Start: 01-18-2024 Mammography Dallin Danielbrook PREVENTIVE MAINTENANCE COORDINATOR Work Phone: Start: 10-23-2023 TBH D-DIMER Shaikh Jose ADAM Work Phone: Start: 10-15-2023 ALL CBC WITH AUTO DIFF Shaikh Jose ADAM Work Phone: Start: 01-13-2023 Mammography Shaikh Jose ADAM Work Phone: Start: 03-20-2020 Follow-up visit Start: 02-14-2020 Follow-up visit Start: 10-03-2019 Follow-up visit Plan of Treatment Date Care Activity Detail Author Start: 04-17-2027 Screening for malign ant neoplasm of colon [facility] Start: 01-17-2025 Screening for malign ant neoplasm of breast Mammogram [facility] Start: 09-15-2024 End: 09-15-2024 Patient encounter procedure 09/15/2024 1:45 PM EST Office Visit [facility] [address] [place] [address] Viral Lewis MD [address] [place] [address] Arrived [facility] Comment on above: Arrived Start: 08-01-2024 [facility] Start: 07-31-2024 Referral to livestock yard supervisor [facility] Start: 07-31-2024 Bacteria identified in Urine by Culture Urine Culture [facility] Start: 07-31-2024 Hospital admission [facility] Start: 07-31-2024 End: 07-31-2024 Urine culture [facility] Start: 01-14-2024 Screening for malign ant neoplasm of breast Mammogram [facility] Start: 10-15-2023 End: 10-15-2023 Patient encounter procedure 10/15/2023 2:45 PM EST [facility] [address] [place] [address] Shaikh Garcia MD [address] [place] [address] Arrived [facility] Comment on above: Arrived Start: 10-15-2023 End: 10-15-2024 CBC W Auto Differential panel - Blood CBC and differential Lab Routine Bilateral lower extremity edema Autoimmune hepatitis treated with steroids (CMS/HCC) Expected: 10/15/2023 (Approximate), Expires: 10/15/2024 [facility] Comment on above: Expected: 10/15/2023 (Approximate), Expires: 10/15/2024 Start: 10-15-2023 End: 10-15-2024 Comprehensive metabolic 2000 panel - Serum or Plasma Comprehensive metabolic panel Lab Routine Bilateral lower extremity edema Autoimmune hepatitis treated with steroids (CMS/HCC) Expected: 10/15/2023 (Approximate), Expires: 10/15/2024 [facility] Comment on above: Expected: 10/15/2023 (Approximate), Expires: 10/15/2024 Start: 10-15-2023 End: 10-15-2024 Creatinine [Mass/volume] in Urine Creatinine, urine, random Lab Routine Bilateral lower extremity edema Expected: 10/15/2023 (Approximate), Expires: 10/15/2024 [facility] Comment on above: Expected: 10/15/2023 (Approximate), Expires: 10/15/2024 Start: 10-15-2023 End: 10-15-2024 Hemoglobin A1c measurement Hemoglobin A1c Lab Routine Screening for diabetes mellitus Expected: 10/15/2023 (Approximate), Expires: 10/15/2024 [facility] Comment on above: Expected: 10/15/2023 (Approximate), Expires: 10/15/2024 Start: 10-15-2023 End: 10-15-2024 Lipid 1996 panel - Serum or Plasma Lipid panel Lab Routine Screening for hyperlipidemia Expected: 10/15/2023 (Approximate), Expires: 10/15/2024 [facility] Comment on above: Expected: 10/15/2023 (Approximate), Expires: 10/15/2024 Start: 10-15-2023 End: 10-15-2024 Protein, urine, random Protein, urine, random Lab Routine Bilateral lower extremity edema Expected: 10/15/2023 (Approximate), Expires: 10/15/2024 [facility] Comment on above: Expected: 10/15/2023 (Approximate), Expires: 10/15/2024 Start: 10-15-2023 End: 10-15-2024 Vascular US lower extremity venous insufficiency bilateral Vascular US lower extremity venous insufficiency bilateral Imaging Routine Bilateral lower extremity edema Expected: 10/15/2023, Expires: 10/15/2024 [facility] Work Phone: Comment on above: Expected: 10/15/2023 , Expires: 10/15/2024 Start: 04-30-2023 [facility] Start: 2007 Screening for malign ant neoplasm of cervix [facility] Start: 1998 Screening for malign ant neoplasm of cervix Pap Smear [facility] Start: 1977 Screening for malign ant neoplasm of colon [facility] Actin smooth muscle IgG Ab [Units/volume] in Serum [facility] Work Phone: Atopobium vaginae DN A [Presence] in Vaginal fluid by ABRAHAN with probe detection [facility] Bacterial vaginosis associated bacterium 2 DNA [Presence] in Vaginal fluid by ABRAHAN with probe detection [facility] GENITO/STI GENITO/STI Lab R outine Dysuria Ordered: 07/04/2024 [facility] Work Phone: Comment on above: Ordered: 07/04/2024 Homogenous nuclear A b pattern [Titer] in Serum [facility] Work Phone: Megasphaera sp type 1 DNA [Presence] in Vaginal fluid by ABRAHAN with probe detection [facility] Nuclear Ab [Titer] i n Serum [facility] Work Phone: Patient Education Know your Meds [facility] Work Phone: Patient referral [facility] Work Phone: POCT CEPHEID MVP POCT CEPHEID MV P Point of Care Testing Routine Dysuria 01/30/2025 1:02 PM EDT [facility] Work Phone: BY-[id number]-Dg agr in [facility] [address] Work Phone: NEGATED: Highlighted row has been ruled out! Planned Goals not documented MU-Zanrmwazg-Ucdsj in [facility] [address] Work Phone: Immunizations Immunization Date Immunization Notes Care Provider [facility] 04-24-2023 Influenza, injectabl e, Madin Anupama Canine Kidney, preservative free, quadrivalent Shaikh Jose ADAM Work Phone: [facility] 03-09-2023 tetanus toxoid, redu chris diphtheria toxoid, and acellular pertussis vaccine, adsorbed Shaikh Jose ADAM Work Phone: [facility] 05-05-1983 diphtheria, tetanus toxoids and acellular pertussis vaccine Shaikh Jose ADAM Work Phone: [facility] 05-05-1983 poliovirus vaccine, inactivated Shaikh Jose ADAM Work Phone: [facility] 06-26-1979 diphtheria, tetanus toxoids and acellular pertussis vaccine Shaikh Jose ADAM Work Phone: [facility] 06-26-1979 poliovirus vaccine, inactivated Shaikh Jose ADAM Work Phone: [facility] 04-15-1979 measles, mumps and rubella virus vaccine Shaikh Jose ADAM Work Phone: [facility] 07-14-1978 diphtheria, tetanus toxoids and acellular pertussis vaccine Shaikh Jose ADAM Work Phone: [facility] 07-14-1978 poliovirus vaccine, inactivated Shaikh Jose ADAM Work Phone: [facility] 05-07-1978 diphtheria, tetanus toxoids and acellular pertussis vaccine Shaikh Jose ADAM Work Phone: [facility] 05-07-1978 poliovirus vaccine, inactivated Shaikh Jose ADAM Work Phone: [facility] 02-26-1978 diphtheria, tetanus toxoids and acellular pertussis vaccine Shaikh Jose ADAM Work Phone: [facility] 02-26-1978 poliovirus vaccine, inactivated Shaikh Jose ADAM Work Phone: [facility] Healthcare Payers Date Payer Category Payer Self-pay [id number] 2021 [facility] er [id number] 2021 Unknown [id number] .[id number] 1977 Unknown [id number] 2.16.840.1.429282.3.579.2 .593 1977 Unknown [id number] 2.16.840.1.478985.3.579.2 .593 1977 Unknown [id number] 2.16.840.1.897448.3.579.2 .593 1977 Unknown [id number] 2.16.840.1.570930.3.579.2 .1258 1977 Unknown [id number] 2.16.840.1.074720.3.579.2 .1258 1977 Unknown [id number] 2.16.840.1.511862.3.579.2 .1258 1977 Unknown [id number] 2.16.840.1.542231.3.579.2 .1258 1977 Unknown [id number] 2.16840.1.283245.3.579.2 .1258 1977 Unknown [id number] 2.16840.1.107306.3.579.2 .1258 1977 Unknown [id number] 2.840.1.657873.3.579.2 .1258 1977 Unknown [id number] 2.16840.1.074794.3.579.2 .1258 1977 Unknown [id number] 2.16840.1.280095.3.579.2 .1258 1977 Unknown [id number] 2.16840.1.640435.3.579.2 .1977 Unknown [id number] 2.840.1.691033.3.579.2 .1977 Unknown [id number] 2.16840.1.174481.3.579.2 .1977 Unknown [id number] 2.16840.1.378101.3.579.2 .1977 Unknown [id number] 2.16840.1.781971.3.579.2 .1977 Unknown [id number] 2.16840.1.170528.3.579.2 .1977 Unknown [id number] 2.16.840.1.247515.3.579.2 .196 1977 Unknown [id number] 2.16.840.1.579961.3.579.2 .196 1977 Unknown [id number] 2.16.840.1.821368.3.579.2 .196 1977 Unknown [id number] 2.16.840.1.817178.3.579.2 .196 1977 Unknown [id number] 2.16.840.1.000495.3.579.2 .196 1977 Unknown [id number] 2.16.840.1.448704.3.579.2 .196 1977 Unknown [id number] 2.16.840.1.483760.3.579.2 .196 1977 Unknown [id number] 2.16.840.1.666014.3.579.2 .196 1959 [facility] [id number] 2.16.840.1.799288.19 Unknown [id number] 2.16.840.1.149486.3.579.2 .531 Unknown [id number] 2.16.840.1.899798.3.579.2 .531 Unknown [id number] 2.16.840.1.123259.3.579.2 .531 Social History Date Type Detail Facility Start: 09-25-2023 End: 03-02-2024 Sex Assigned At [facility] Start: 07-19-2019 End: 03-02-2024 Tobacco smoking status NHIS Never smoked tobacco (finding) [facility] Start: 1975 Sex Assigned At Female [facility] Start: 04-07-2023 End: 03-02-2024 Tobacco use and exposure Smokeless tobacco non-user [facility] Start: 09-25-2023 End: 01-30-2025 Alcohol intake Lifetime non-drinker (finding) [facility] Start: 09-25-2023 End: 03-02-2024 History of Social function [facility] Start: 05-08-2023 Alcohol Comment Caffeine: soda [facility] Start: 1975 Sex Assigned At Not on file [facility] Start: 07-31-2024 End: 08-01-2024 Sex Female (finding) [facility] NEGATED: Highlighted row - - [facility] [address] Work Phone: NEGATED: Highlighted rowStart: NINF History of tobacco use Passive smoker [facility] NEGATED: Highlighted row [facility] Goals Date Patient Goal Desired Activity /State Functional Status Date Assessment Result Facility 08-01-2024 Functional status Patient at Baseline [facility] Work Phone: NEGATED: Highlighted row Functional performance Functional status health issues are not documented Disease [facility] [employer] Work Phone: Mental Status Date Assessment Result Facility 08-01-2024 Cognitive function Cognitive Sta tus Patient at Baseline [facility] Work Phone: NEGATED: Highlighted row Cognitive function [Interpretation] Cognitive status health issues are not documented Disease [facility] [employer] Work Phone: Clinical Notes 09-24-2021 to 01-30-2025 Telephone Encounter - Christin Rowe NP - 01/30/2025 1:19 PM EDTTelephone Encounter - Christin Rowe NP - 01/30/2025 1:19 PM Parul Rowe NP - 01/30/2025 10:25 AM EDT Note Date & Type Note Facility 01-30-2025 Telephone encounter Note IH testing for BV, yeast, trich negative. Will await send out results and contact her with those when available. [facility] 01-30-2025 Miscellaneous Notes IH testing for BV, yeast, trich negative. Will await send out results and contact her with those when available. documented in this encounter [facility] 01-30-2025 History of Presen t illness Narrative Images from the original note were not included. [address] , [address] [facility], [address] P: [phone] F: [phone] HPI Historian of HPI: patient Trudy Wilder is a 49 y.o. female who presents today to the Urgent Care with the following complaints and denials which have been present for 1 month(s) pt states her PCP switched her ATB and is unable to get into in with her OB. Pt states she thinks she still has ureaplasma parvum. Pt states her PCP switched her to levaquin which she finished but did not help. Pt dropped her urine sample cut in the toilet and is waiting to give us a urine sample. Pt was now able to give a urine sample. C/O Denies Symptom Comments [x] [] Dysuria Burning [] [x] hematuria [x] [] Urinary frequency [] [x] Urinary incontinence [x] [] Urinary urgency [x] [] Genital itching Strong fishy odor [x] [] Genital discharge Watery clear discharge [] [x] Back pain [] [x] Abd pain Additional Comments: pt has not taken any OTC medications pt states she is not sexually active. Denies concern for STI. Pt states she was on flagyl, zithromax, and levaquin and continues to have sx. States she is having vaginal burning. IH Testing: An In-House UA has been obtained ROS A complete system ROS was performed and negative aside from the pertinent positives noted in the HPI and PE. PHYSICAL EXAM Examination General Examination: General Examination: alert, oriented, normal affect, well-appearing, in no acute distress, well developed, well nourished Head: normocephalic, atraumatic Heart: S1, S2 normal, regular rate and rhythm, no S3, S4, no murmurs, rubs, gallops. Lungs: clear anteriorly and posteriorly, clear to auscultation bilaterally, good air movement, no wheezes, rales, rhonchi Chest: normal shape and expansion, normal anteroposterior (AP) diameter Abdomen: soft, nondistended, abd nontender. No CVS tenderness bilat, no guarding or rigidity, no hepatosplenomegaly, no masses palpable, no organomegaly, no rebound tenderness Extremities: no edema, no cyanosis Psych: alert, oriented, cooperative with exam TREATMENT PLAN 1. Vaginal burning (Primary) UA obtained; will resend for culture. Pt declines vaginal exam today. Pt obtains vaginal swab per herself for IH BV/yeast/Trich testing. Will contact pt with results when available again. Discussed waiting for send out culture results for tx and pt wishes to start zithromax and diflucan at this time. Rx sent. Further recommends and follow up pending culture and IH testing results. 2. Dysuria See 1. - URINALYSIS ANALYZER TEST - COMPLICATED GENITOURINARY INFECTION (HTRX) - POCT CEPHEID MVP - azithromycin (Zithromax Z-German) 250 MG tablet; Take 2 tablets (500 mg) on Day 1, followed by 1 tablet (250 mg) once daily on Days 2 through 5. Dispense: 6 tablet; Refill: 0 - fluconazole (Diflucan) 150 MG tablet; Take 1 tablet (150 mg) by mouth Daily for 2 doses 1 dose and repeat second dose in 3 days. Dispense: 2 tablet; Refill: 0 documented in this encounter [facility] 01-16-2025 History of Presen t illness Narrative HPI: Historian of HPI: patient Trudy Wilder is a 49 y.o. female who presents today to the Urgent Care with the following complaints and denials which have been present for 1 month(s) Pt states she was recently just treated for a UTI and was called in clindamycin cream which has not helped. Pt states she was tested for STI, BV, and a vaginal swab was collected and sent out to the lab. Pts results were abnormal. She was not called by anyone at this facility and has results on her phone. Pt states she feels like she needs a different ATB. C/O Denies Symptom Comments [x] [] Vaginal discharge [x] [] Vaginal odor [x] [] dysuria Burning [] [x] fever [] [x] Abd pain [] [x] hematuria [] [x] Urinary urgency [] [x] Urinary frequency [] [x] Urinary incontinence Additional Comments: Pt states that they are not currently sexually active pt has taken clindamycin OTC medication without relief ROS: A complete system ROS was performed and negative aside from the pertinent positives noted in the HPI and PE. Visit Vitals BP 128/82 (BP Location: Left arm, Patient Position: Sitting, BP Cuff Size: Large adult) Pulse 87 Temp 97.8 F (Temporal) Resp 20 Wt 205 lb SpO2 99% BMI 36.31 kg/m Smoking Status Never BSA 2.03 m 1. Dysuria (Primary) Pt presents today for evaluation of vaginal issue . She was seen by a previous provider at another facility. She has results on phone + for ureaplasma parvum. She has taken Z pack with no relief. Discussed options to re-evaluate cause of symptoms. Due to the testing being done at a different facility, I cannot see the culture results. She does show this provider the + ureaplasma parvum results. She is agreeable to send urine out for further testing. In the meantime, she wishes to start Cipro to see if this helps. Will call patient with final results of urethritis/discharge health trx. She expressed an understanding. - URINALYSIS ANALYZER TEST - ciprofloxacin (Cipro) 500 MG tablet; Take 1 tablet (500 mg) by mouth in the morning and 1 tablet (500 mg) before bedtime. Do all this for 7 days. Dispense: 14 tablet; Refill: 0 - URETHRITIS/DISCHARGE (HTRX) documented in this encounter [facility] 09-15-2024 History of Presen t illness Narrative Associated Problem(s): Class 2 obesity due to excess calories without serious comorbidity with body mass index (BMI) of 37.0 to 37.9 in adult Weight loss indicated Associated Problem(s): Nonalcoholic fatty liver disease Follow with GI. Associated Problem(s): Duodenal ulcer Continue medication and follow with GI. Associated Problem(s): Chronic rhinosinusitis Continued symptoms and treat with augmentin. Start simona. Images from the original note were not included. Subjective Patient ID: Trudy Wilder is a 48 y.o. female who presents for Follow-up ([facility] Hospital follow up from 07/31-08/01 for nausea, vomiting, and abdominal pain. Developed severe pain and to ER. CT showed fatty liver and duodenitis. Seen by GI and EGD showed duodenal ulcer. On omeprazole. H. Pylori negative. Pain improved and eating well. Patient had liver scan and follow up scheduled with GI. C/o worsening sinus symptoms for a month. Increased congestion and rhinorrhea. HALL and sinus pressure in forehead and cheeks along with postnasal drip. Ears plugged. Using flonase PRN and claritin daily but not helping. Review of Systems Respiratory: Negative for cough, shortness of breath and wheezing. Cardiovascular: Negative for chest pain and palpitations. Gastrointestinal: Negative for abdominal pain, diarrhea, nausea and vomiting. Genitourinary: Negative for dysuria. Objective Physical Exam Constitutional: General: She is not in acute distress. Appearance: Normal appearance. HENT: Head: Normocephalic. Right Ear: Tympanic membrane normal. Left Ear: Tympanic membrane normal. Eyes: Extraocular Movements: Extraocular movements intact. Pupils: Pupils are equal, round, and reactive to light. Cardiovascular: Rate and Rhythm: Normal rate and regular rhythm. Heart sounds: No murmur heard. No friction rub. No gallop. Pulmonary: Effort: Pulmonary effort is normal. Breath sounds: Normal breath sounds. No wheezing, rhonchi or rales. Abdominal: General: Bowel sounds are normal. There is no distension. Palpations: Abdomen is soft. Tenderness: There is no abdominal tenderness. There is no guarding or rebound. Musculoskeletal: Cervical back: Neck supple. Right lower leg: No edema. Left lower leg: No edema. Neurological: Mental Status: She is alert. Assessment/Plan Problem List Items Addressed This Visit Nonalcoholic fatty liver disease Follow with GI. Duodenal ulcer - Primary Continue medication and follow with GI. Chronic rhinosinusitis Continued symptoms and treat with augmentin. Start simona. Relevant Medications amoxicillin-clavulanate (Augmentin) 875-125 MG tablet fexofenadine (Simona) 180 MG tablet documented in this encounter [facility] 08-04-2024 Telephone encounter Note Needs to be seen for possible refills [facility] Work Phone: 08-04-2024 Miscellaneous Notes Needs to be seen for possible refills documented in this encounter [facility] 08-01-2024 Procedure note [facility] 08-01-2024 Consult note Note Date/Time August 01, 2024 8:18am [facility] [address] [place] [address] Gastroenterology Consult Note Signed Patient: Trudy Wilder MR#: [id number] : 1975 Acct:[id number] Age/Sex: 48 / F Adm Date: 4 Loc: Room: [address] [place] [address] Type: ADM INOo Attending Dr: Spenser Yarbrough MD Copies to: MD Spenser Mckeon MD Marc Naderer, MD~ HPI Data of Consult Date of Consultation: 08/01/24 Requesting Physician: Spenser Yrabrough MD Consult Narrative History of present illness: Ms. Wilder is a 48 year old female who was admitted with epigastric pain. The patient states the pain has been going on for several days. She uses OTC NSAIDs. She also had issues with migraines recently and had several presentations to [facility] ER where she was given Toradol. She is on as needed PPI inthe outpatient setting. The pain is described as a gnawing sensation and makes her feel hungry, eating slightly improves the pain. She had a remote EGD showing H. pylori, she does not recall ever being treated for this or testing for eradication. The previous EGD showed increased eosinophils, at the time an EGD was done for dysphagia. Was not clear if the biopsies were appropriately taken from the mid and upper esophagus and the slightly increased eosinophil count really represents uncontrolled reflux disease.Since admission she has beenhemodynamically stable. H&H unremarkable. CT scan that was, for some reason ordered noncontrasted, demonstrated possible mild acute pancreatitis versus duodenitis. Normal lipase. cc:: CC: Spenser Yarbrough MD [facility] Medical History (Updated 08/01/24 @ 08:18 by Bowen Lozano MD) Hiatal hernia Seizure Eosinophilic esophagitis Autoimmune hepatitis Surgical History H/O arthroscopy of left knee History of tonsillectomy and adenoidectomy History of hysterectomy Family History Father History of stroke Legacy FamHx Problem: Diagnosed with Stroke Depression Heart disease Diabetes Hypertension Mother Fibromyalgia Neuropathy Depression Sister Hypertension Asthma Daughter Asthma Chronic sinus complaints Social History Smoking Status: Never smoker Substance Use Type: None Meds Medications and Allergies Allergies doxycycline Allergy (Unknown, Verified 07/31/24 08:20) Vomiting Iodinated Contrast Media (Iodinated Contrast- Oral and IV Dye) Allergy (Unknown,Verified 07/31/24 08:20) Difficulty Breathing promethazine (From Phenergan) Allergy (Unknown, Verified 07/31/24 08:20) Seizure scopolamine Allergy (Verified 07/31/24 08:20) Dizziness Home Medications omeprazole 40 mg capsule,delayed release 40 mg PO DAILY PRN heartburn 07/31/24 [History Confirmed 07/31/24] ondansetron 4 mg disintegrating tablet 4 mg PO Q8H PRN nausea and vomiting #10 tabs 07/31/24 [Rx] sucralfate 1 gram tablet (Carafate) 1 gm PO QID 4 weeks #112 tabs 07/31/24 [Rx] Exam Physical Exam Vital Signs: Temp Pulse Resp BP Pulse Ox O2 Del Method 97.7 F 62 16 114/74 98 Room Air 08/01/24 06:21 08/01/24 06:21 08/01/24 06:21 08/01/24 06:21 08/01/24 06:21 08/01/24 06:21 Results - Gastroenterology Labs Labs: Laboratory Results - last 24 hr 07/31/24 07/31/24 07/31/24 09:10 09:37 09:37 Corrected WBC 8.6 Uncorrected WBC Count 8.6 RBC 4.66 Hgb 14.0 Hct 41.3 MCV 88.7 MCH 30.1 MCHC 33.9 RDW 13.6 Plt Count 248 MPV 8.5 Neut % (Auto) 59.0 Lymph % (Auto) 32.8 [place] % (Auto) 7.1 Eos % (Auto) 0.5 Baso % (Auto) 0.6 Nucleat RBC Rel Count 0.1 Neut # (Auto) 5.1 Lymph # (Auto) 2.8 [place] # (Auto) 0.6 Eos # (Auto) 0.0 Baso # (Auto) 0.0 Monocyte Dist Width 17.14 PT INR PHA Creatinine Clear 90.17 Sodium 141 Potassium 3.3 L Chloride 107 Carbon Dioxide 26.5 Anion Gap 10.8 BUN 14 Creatinine 0.83 Est GFR (CKD-EPI) > 60.0 Glucose 85 Calcium 8.8 Magnesium 1.9 Total Bilirubin 0.6 Direct Bilirubin 0.10 Indirect Bilirubin 0.5 AST 11 L ALT 10 Alkaline Phosphatase 79 Troponin I High Sens 6.5 Total Protein 6.4 Albumin 4.0 Globulin 2.4 Albumin/Globulin Ratio 1.7 Amylase 36 Cancelled Lipase 30.0 Urine Color Yellow Urine Appearance Cloudy A Urine pH 5.5 Ur Specific [place] 1.023 Urine Protein Negative Urine Glucose (UA) Normal Urine Ketones Negative Urine Occult Blood Negative Urine Nitrite Negative Urine Bilirubin Negative Urine Urobilinogen Normal Ur Leukocyte Esterase 2+ H Urine RBC 3-4 Urine WBC 5-9 H Ur Squamous Epith Cells 5-9 H Urine Bacteria None seen Hyaline Casts 0-8 Other Casts 1-2 H Urine Mucus 4+ A Urine HCG, Qual Negative 07/31/24 08/01/24 09:46 05:15 Corrected WBC 6.3 Uncorrected WBC Count 6.3 RBC 4.33 Hgb 13.0 Hct 38.5 MCV 88.9 MCH 30.0 MCHC 33.7 RDW 13.3 Plt Count 215 MPV 8.6 Neut % (Auto) 34.2 Lymph % (Auto) 52.7 [place] % (Auto) 8.2 Eos % (Auto) 4.5 Baso % (Auto) 0.4 Nucleat RBC Rel Count 0.2 Neut # (Auto) 2.1 Lymph # (Auto) 3.3 [place] # (Auto) 0.5 Eos # (Auto) 0.3 Baso # (Auto) 0.0 Monocyte Dist Width PT 12.0 INR 1.0 PHA Creatinine Clear 98.12 Sodium 140 Potassium 4.7 Chloride 110 H Carbon Dioxide 27.0 Anion Gap 7.7 BUN 8 Creatinine 0.77 Est GFR (CKD-EPI) > 60.0 Glucose 77 Calcium 8.5 L Magnesium 2.4 Total Bilirubin 0.7 Direct Bilirubin 0.10 Indirect Bilirubin 0.6 AST 9 L ALT 8 Alkaline Phosphatase 70 Troponin I High Sens Total Protein 5.4 L Albumin 3.5 Globulin 1.9 Albumin/Globulin Ratio 1.8 Amylase 29 Lipase 25.0 Urine Color Urine Appearance Urine pH Ur Specific [place] Urine Protein Urine Glucose (UA) Urine Ketones Urine Occult Blood Urine Nitrite Urine Bilirubin Urine Urobilinogen Ur Leukocyte Esterase Urine RBC Urine WBC Ur Squamous Epith Cells Urine Bacteria Hyaline Casts Other Casts Urine Mucus Urine HCG, Qual A&P - Gastroenterology Assessment/Plan (1) Epigastric abdominal pain: (2) Abnormal CT of the abdomen: (3) Dyspepsia: (4) Helicobacter positive gastritis: Plan -Patient should receive bolus 80 mg PPI, followed by 40 twice daily -Keep n.p.o., plan for EGD later today Thank you for this consult, please see EGD note for further recommendations Documented By: Bowen Lozano MD 08/01/24 0711 Signed By: <Electronically signed by Bowen Lozano MD> 08/01/24 0818 [facility] Work Phone: [phone]) 670-279411-18-[address] [address] Gastroenterology Consult Note Signed Patient: Trudy Wilder MR#: [id number] : 1975 Acct:[id number] Age/Sex: 48 / F Adm Date: 4 Loc: Room: [address] [place] [address] Type: ADM INOo Attending Dr: Spenser Yarbrough MD Copies to: MD Spenser Mckeon MD Marc Naderer, MD~ HPI Data of Consult Date of Consultation: 08/01/24 Requesting Physician: Spenser Yarbrough MD Consult Narrative History of present illness: Ms. Wilder is a 48 year old female who was admitted with epigastric pain. The patient states the pain has been going on for several days. She uses OTC NSAIDs. She also had issues with migraines recently and had several presentations to OSH ER where she was given Toradol. She is on as needed PPI inthe outpatient setting. The pain is described as a gnawing sensation and makes her feel hungry, eating slightly improves the pain. She had a remote EGD showing H. pylori, she does not recall ever being treated for this or testing for eradication. The previous EGD showed increased eosinophils, at thetime an EGD was done for dysphagia. Was not clear if the biopsies were appropriately taken from themid and upper esophagus and the slightly increased eosinophil count really represents uncontrolled reflux disease.Since admission she has beenhemodynamically stable. H&H unremarkable. CT scan that was, for some reason ordered noncontrasted, demonstrated possible mild acute pancreatitis versus du odenitis. Normal lipase. cc:: CC: Spenser Yarbrough MD [facility] Medical History (Updated 08/01/24 @ 08:18 by Bowen Lozano MD) Hiatal hernia Seizure Eosinophilic esophagitis Autoimmune hepatitis Surgical History H/O arthroscopy of left knee History of tonsillectomy and adenoidectomy History of hysterectomy Family History Father History of stroke Legacy FamHx Problem: Diagnosed with Stroke Depression Heart disease Diabetes Hypertension Mother Fibromyalgia Neuropathy Depression Sister Hypertension Asthma Daughter Asthma Chronic sinus complaints Social History Smoking Status: Never smoker Substance Use Type: None Meds Medications and Allergies Allergies doxycycline Allergy (Unknown, Verified 07/31/24 08:20) Vomiting Iodinated Contrast Media (Iodinated Contrast- Oral and IV Dye) Allergy (Unknown,Verified 07/31/24 08:20) Difficulty Breathing promethazine (From Phenergan) Allergy (Unknown, Verified 07/31/24 08:20) Seizure scopolamine Allergy (Verified 07/31/24 08:20) Dizziness Home Medications omeprazole 40 mg capsule,delayed release 40 mg PO DAILY PRN heartburn 07/31/24 [History Confirmed 07/31/24] ondansetron 4 mg disintegrating tablet 4 mg PO Q8H PRN nausea and vomiting #10 tabs 07/31/24 [Rx] sucralfate 1 gram tablet (Carafate) 1 gm PO QID 4 weeks #112 tabs 07/31/24 [Rx] Exam Physical Exam Vital Signs: Temp Pulse Resp BP Pulse Ox O2 Del Method 97.7 F 62 16 114/74 98 Room Air 08/01/24 06:21 08/01/24 06:21 08/01/24 06:21 08/01/24 06:21 08/01/24 06:21 08/01/24 06:21 Results - Gastroenterology Labs Labs: Laboratory Results - last 24 hr 07/31/24 07/31/24 07/31/24 09:10 09:37 09:37 Corrected WBC 8.6 Uncorrected WBC Count 8.6 RBC 4.66 Hgb 14.0 Hct 41.3 MCV 88.7 MCH 30.1 MCHC 33.9 RDW 13.6 Plt Count 248 MPV 8.5 Neut % (Auto) 59.0 Lymph % (Auto) 32.8 [place] % (Auto) 7.1 Eos % (Auto) 0.5 Baso % (Auto) 0.6 Nucleat RBC Rel Count 0.1 Neut # (Auto) 5.1 Lymph # (Auto) 2.8 [place] # (Auto) 0.6 Eos # (Auto) 0.0 Baso # (Auto) 0.0 Monocyte Dist Width 17.14 PT INR PHA Creatinine Clear 90.17 Sodium 141 Potassium 3.3 L Chloride 107 Carbon Dioxide 26.5 Anion Gap 10.8 BUN 14 Creatinine 0.83 Est GFR (CKD-EPI) > 60.0 Glucose 85 Calcium 8.8 Magnesium 1.9 Total Bilirubin 0.6 Direct Bilirubin 0.10 Indirect Bilirubin 0.5 AST 11 L ALT 10 Alkaline Phosphatase 79 Troponin I High Sens 6.5 Total Protein 6.4 Albumin 4.0 Globulin 2.4 Albumin/Globulin Ratio 1.7 Amylase 36 Cancelled Lipase 30.0 Urine Color Yellow Urine Appearance Cloudy A Urine pH 5.5 Ur Specific [place] 1.023 Urine Protein Negative Urine Glucose (UA) Normal Urine Ketones Negative Urine Occult Blood Negative Urine Nitrite Negative Urine Bilirubin Negative Urine Urobilinogen Normal Ur Leukocyte Esterase 2+ H Urine RBC 3-4 Urine WBC 5-9 H Ur Squamous Epith Cells 5-9 H Urine Bacteria None seen Hyaline Casts 0-8 Other Casts 1-2 H Urine Mucus 4+ A Urine HCG, Qual Negative 07/31/24 08/01/24 09:46 05:15 Corrected WBC 6.3 Uncorrected WBC Count 6.3 RBC 4.33 Hgb 13.0 Hct 38.5 MCV 88.9 MCH 30.0 MCHC 33.7 RDW 13.3 Plt Count 215 MPV 8.6 Neut % (Auto) 34.2 Lymph % (Auto) 52.7 [place] % (Auto) 8.2 Eos % (Auto) 4.5 Baso % (Auto) 0.4 Nucleat RBC Rel Count 0.2 Neut # (Auto) 2.1 Lymph # (Auto) 3.3 [place] # (Auto) 0.5 Eos # (Auto) 0.3 Baso # (Auto) 0.0 Monocyte Dist Width PT 12.0 INR 1.0 PHA Creatinine Clear 98.12 Sodium 140 Potassium 4.7 Chloride 110 H Carbon Dioxide 27.0 Anion Gap 7.7 BUN 8 Creatinine 0.77 Est GFR (CKD-EPI) > 60.0 Glucose 77 Calcium 8.5 L Magnesium 2.4 Total Bilirubin 0.7 Direct Bilirubin 0.10 Indirect Bilirubin 0.6 AST 9 L ALT 8 Alkaline Phosphatase 70 Troponin I High Sens Total Protein 5.4 L Albumin 3.5 Globulin 1.9 Albumin/Globulin Ratio 1.8 Amylase 29 Lipase 25.0 Urine Color Urine Appearance Urine pH Ur Specific [place] Urine Protein Urine Glucose (UA) Urine Ketones Urine Occult Blood Urine Nitrite Urine Bilirubin Urine Urobilinogen Ur Leukocyte Esterase Urine RBC Urine WBC Ur Squamous Epith Cells Urine Bacteria Hyaline Casts Other Casts Urine Mucus Urine HCG, Qual A&P - Gastroenterology Assessment/Plan (1) Epigastric abdominal pain: (2) Abnormal CT of the abdomen: (3) Dyspepsia: (4) Helicobacter positive gastritis: Plan -Patient should receive bolus 80 mg PPI, followed by 40 twice daily -Keep n.p.o., plan for EGD later today Thank you for this consult, please see EGD note for further recommendations Documented By: Bowen Lozano MD 08/01/24710 Signed By: 08/01/24 0818 [facility]11-17-2024 History and physical note Author Valerio Zheng [facility] Note Date/Time July 31, 2024 6:05pm [facility] [address] [place] [address] Hospitalist H&P Signed Patient: Trudy Wilder MR#: [id number] : 1975 Acct:[id number] Age/Sex: 48 / F Adm Date: 4 Loc: Room: [address] [place] [address] Type: ADM INOo Attending Dr: Valerio Zheng DO Copies to: DO Viral Walden MD~ HPI DATE OF EXAMINATION: 07/31/24 CHIEF COMPLAINT: midepigastric abdominal pain and intractable vomiting HISTORY OF PRESENT ILLNESS: This is a 48-year-old woman who came to the emergency room today with intractable nausea vomiting and unable to keep things down for 3 days. She has severe midepigastric abdominal pain. In emergency room she was provided with IVProtonix. Because her midepigastric pain was so bad the emergency room ordered a CT scan of her abdomen pelvis which was unremarkable except for the finding of possible minor acute pancreatitis and/or duodenitis. In the body of the report the radiologist described this as there is a question of subtle fibrofatty stranding near the head of the pancreas and... There is also apparentthickening of the wall of the adjacent duodenum. The patient's lipase is very normal at 30. Her potassium is slightly low at 3.3. The patient says problems began a few days ago when she had a bad migraine. She normally gets an aura without a headache but this time she had a really bad headache. She made 2 different trips to the [facility] emergency room over 2 days where she was provided with IV fluids and our emergency department to state that she had got acouple doses of Toradol there as well. The patient says that normally when she gets her migraine headache she does take oral Toradol, and it works fine. On her medication list there is Prilosec. She says that she began taking that about a week ago but over the last few days she has been unable to keep it down. She does have a history of hiatal hernia and Schatzki's ring as well as eosinophilic esophagitis. She had an EGD by Dr. Trejo on 04/26/2018. The patient says that over the last couple years her EOE has not been too bad. She also has a history of autoimmune hepatitis but says that she has been doing well with that for a period of 5 years. Before that, on 10/29/2016, she had EGD by Dr. Trejo that had abundant Helicobacter pylori positive gastritis. In the emergency room she was offered medicines to treat her pain but she did not want any. 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 She says that she did have difficulty with anesthesia the last time that she had an EGD because of something to do with her heart rate and she said just I felt like I was going to . Review of Systems Review of Systems Review of systems: 10 systems are reviewed and are negative except as mentioned elsewhere in the documentation. [facility] Medical History (Updated 07/31/24 @ 18:00 by Valerio Zheng DO) Hiatal hernia Seizure Eosinophilic esophagitis Autoimmune hepatitis Surgical History H/O arthroscopy of left knee History of tonsillectomy and adenoidectomy History of hysterectomy Family History Father History of stroke Legacy FamHx Problem: Diagnosed with Stroke Depression Heart disease Diabetes Hypertension Mother Fibromyalgia Neuropathy Depression Sister Hypertension Asthma Daughter Asthma Chronic sinus complaints Social History Smoking Status: Never smoker Substance Use Type: None Meds Medications and Allergies Allergies doxycycline Allergy (Unknown, Verified 07/31/24 08:20) Vomiting Iodinated Contrast Media (Iodinated Contrast- Oral and IV Dye) Allergy (Unknown,Verified 07/31/24 08:20) Difficulty Breathing promethazine (From Phenergan) Allergy (Unknown, Verified 07/31/24 08:20) Seizure scopolamine Allergy (Verified 07/31/24 08:20) Dizziness Home Medications omeprazole 40 mg capsule,delayed release 40 mg PO DAILY PRN heartburn 07/31/24 [History Confirmed 07/31/24] ondansetron 4 mg disintegrating tablet 4 mg PO Q8H PRN nausea and vomiting #10 tabs 07/31/24 [Rx] sucralfate 1 gram tablet (Carafate) 1 gm PO QID 4 weeks #112 tabs 07/31/24 [Rx] Allergy/Medication Comments: The patient states that she had only started taking the omeprazole less than a week ago and could not keep most doses down due to intractable vomiting. She has not yet picked up the Carafate tablets and has not used those in the past. Exam Physical Exam Vital Signs: Temp Pulse Resp BP Pulse Ox O2 Del Method 98.2 F 60 18 120/76 99 Room Air 07/31/24 15:32 07/31/24 15:32 07/31/24 15:32 07/31/24 15:32 07/31/24 15:32 07/31/24 15:56 Narrative: GEN: Awake, alert, oriented x 3. Lungs: Clear to auscultation bilaterally, no wheezing, no crackles. Heart: Regular rate and rhythm, no murmurs, rubs, or gallops. Abdomen: Soft, normal bowel sounds, no rigidity, guarding, or acute peritoneal signs. Results - Hospitalist H&P Lab Results Labs: Laboratory Last Values Corrected WBC 8.6 X10E3/uL (3.8-11.6) 07/31/24 09:37 Uncorrected WBC Count 8.6 x10E3/uL (3.8-11.6) 07/31/24 09:37 RBC 4.66 x10E6/uL (3.60-5.00) 07/31/24 09:37 Hgb 14.0 g/dL (11.8-15.4) 07/31/24 09:37 Hct 41.3 % (34.0-46.4) 07/31/24 09:37 MCV 88.7 fl (80-100) 07/31/24 09:37 MCH 30.1 pg (24.7-34.3) 07/31/24 09:37 MCHC 33.9 g/dL (32.0-35.0) 07/31/24 09:37 RDW 13.6 % (11.9-15.3) 07/31/24 09:37 Plt Count 248 x10E3/uL (150-450) 07/31/24 09:37 MPV 8.5 fl (6.3-10.7) 07/31/24 09:37 Neut % (Auto) 59.0 % (.) 07/31/24 09:37 Lymph % (Auto) 32.8 % (.) 07/31/24 09:37 [place] % (Auto) 7.1 % (.) 07/31/24 09:37 Eos % (Auto) 0.5 % (.) 07/31/24 09:37 Baso % (Auto) 0.6 % (.) 07/31/24 09:37 Nucleat RBC Rel Count 0.1 /100 WBC (0-0.5) 07/31/24 09:37 Neut # (Auto) 5.1 x10E3/uL (1.8-7.7) 07/31/24 09:37 Lymph # (Auto) 2.8 x10E3/uL (1.00-4.8) 07/31/24 09:37 [place] # (Auto) 0.6 x10E3/uL (0.0-0.8) 07/31/24 09:37 Eos # (Auto) 0.0 x10E3/uL (0.0-0.45) 07/31/24 09:37 Baso # (Auto) 0.0 x10E3/uL (0.0-0.2) 07/31/24 09:37 Monocyte Dist Width 17.14 % (0.00-20.00) 07/31/24 09:37 PT 12.0 Seconds (9.0-12.9) 07/31/24 09:46 INR 1.0 07/31/24 09:46 PHA Creatinine Clear 90.17 07/31/24 09:37 Sodium 141 mmol/L (136-145) 07/31/24 09:37 Potassium 3.3 mmol/L (3.5-5.1) L 07/31/24 09:37 Chloride 107 mmol/L (98-107) 07/31/24 09:37 Carbon Dioxide 26.5 mmol/L (21.0-31.0) 07/31/24 09:37 Anion Gap 10.8 mEq/L (6.0-15.0) 07/31/24 09:37 BUN 14 mg/dL (7-25) 07/31/24 09:37 Creatinine 0.83 mg/dL (0.60-1.20) 07/31/24 09:37 Est GFR (CKD-EPI) > 60.0 mL/Min 07/31/24 09:37 Glucose 85 mg/dL (70-100) 07/31/24 09:37 Calcium 8.8 mg/dL (8.6-10.3) 07/31/24 09:37 Magnesium 1.9 mg/dL (1.9-2.7) 07/31/24 09:37 Total Bilirubin 0.6 mg/dl (0.3-1.0) 07/31/24 09:37 Direct Bilirubin 0.10 mg/dL (0.03-0.18) 07/31/24 09:37 Indirect Bilirubin 0.5 mg/dL 07/31/24 09:37 AST 11 U/L (13-39) L 07/31/24 09:37 ALT 10 U/L (7-52) 07/31/24 09:37 Alkaline Phosphatase 79 U/L (34-104) 07/31/24 09:37 Troponin I High Sens 6.5 pg/mL (0.0-15.0) 07/31/24 09:37 Total Protein 6.4 gm/dL (6.4-8.9) 07/31/24 09:37 Albumin 4.0 gm/dL (3.5-5.7) 07/31/24 09:37 Globulin 2.4 gm/dL 07/31/24 09:37 Albumin/Globulin Ratio 1.7 07/31/24 09:37 Lipase 30.0 U/L (11.0-82.0) 07/31/24 09:37 Urine Color Yellow (Yellow) 07/31/24 09:10 Urine Appearance Cloudy (Clear) A 07/31/24 09:10 Urine pH 5.5 (5.0-9.0) 07/31/24 09:10 Ur Specific [place] 1.023 (1.001-1.030) 07/31/24 09:10 Urine Protein Negative mg/dL (Negative) 07/31/24 09:10 Urine Glucose (UA) Normal mg/dL (Normal) 07/31/24 09:10 Urine Ketones Negative (Negative) 07/31/24 09:10 Urine Occult Blood Negative (Negative) 07/31/24 09:10 Urine Nitrite Negative (Negative) 07/31/24 09:10 Urine Bilirubin Negative (Negative) 07/31/24 09:10 Urine Urobilinogen Normal mg/dL (Normal) 07/31/24 09:10 Ur Leukocyte Esterase 2+ (Negative) H 07/31/24 09:10 Urine RBC 3-4 /HPF (0-4) 07/31/24 09:10 Urine WBC 5-9 /HPF (0-4) H 07/31/24 09:10 Ur Squamous Epith Cells 5-9 /HPF (0-2) H 07/31/24 09:10 Urine Bacteria None seen /HPF (None Seen) 07/31/24 09:10 Hyaline Casts 0-8 /LPF (0-8) 07/31/24 09:10 Other Casts 1-2 /LPF (None Seen) H 07/31/24 09:10 Urine Mucus 4+ /LPF A 07/31/24 09:10 Urine HCG, Qual Negative 07/31/24 09:10 Assessment & Plan Assessment/Plan (1) Intractable vomiting with nausea: (2) Duodenitis: (3) Dehydration: (4) Epigastric abdominal pain: (5) Hypokalemia: Plan Assessment: Severe midepigastric abdominal pain, associated with intractable nausea vomiting and unable to keep anything down for the last 3 days. Previously had migraine headache that was treated by 2 ER visits to the [facility] emergency room, including with doses of Toradol. hypokalemia. Dehydration. History of hiatal hernia and Schatzki's ring. Plan: Clear liquid diet at this time. The patient is about ready to try sips of water. Protonix 40 mg IV twice daily. Rehydrate with 2 L of IV fluids. She can have nausea control with Zofran. I offered that she could have pain control with Tylenol but she is reluctant to swallow any pills at this time. Given her history of H. pylori positivity in 2017 and eosinophilic esophagitis in 2018 and Schatzki's ring I think that she would benefit from esophagogastroduodenoscopy. She is ordered to be n.p.o. after midnight with a consult to gastroenterology. IP vs OBS Justification Based on differential dx, clinical care plan, and risk of adverse events, if untreated, in my clinical judgement this patient requires an acute care setting as: OBSERVATION because of an expectation of an under 2 midnight stay. Estimated length of stay (# of days): 2 Documented By: Valerio Zheng DO 173 Signed By: <Electronically signed by Valerio Zheng DO> 07/31/24 2969 [facility] Work Phone: 1(226) 628-673611-17-2024 [place] [address] Hospitalist H&P Signed Patient: Trudy Wilder MR#: [id number] : 1975 Acct:[id number] Age/Sex: 48 / F Adm Date: 4 Loc: Room: [address] [place] [address] Type: ADM INOo Attending Dr: Valerio Zheng DO Copies to: DO Viral Walden MD~ HPI DATE OF EXAMINATION: 07/31/24 CHIEF COMPLAINT: midepigastric abdominal pain and intractable vomiting HISTORY OF PRESENT ILLNESS: This is a 48-year-old woman who came to the emergency room today with intractable nausea vomiting and unable to keep things down for 3 days. She has severe midepigastric abdominal pain. In emergency room she was provided with IVProtonix. Because her midepigastric pain was so bad the emergency room ordered a CT scan of her abdomen pelvis which was unremarkable except for the finding of possible minor acute pancreatitis and/or duodenitis. In the body of the report the radiologist described this as there is a question of subtle fibrofatty stranding near the head of the pancreas and... There isalso apparentthickening of the wall of the adjacent duodenum. The patient's lipase is very normal at 30. Her potassium is slightly low at 3.3. The patient says problems began a few days ago when shehad a bad migraine. She normally gets an aura without a headache but this time she had a really badheadache. She made 2 different trips to the [facility] emergency room over 2 days where she w as provided with IV fluids and our emergency department to state that she had got acouple doses of Toradol there as well. The patient says that normally when she gets her migraine headache she does take oral Toradol, and it works fine. On her medication list there is Prilosec. She says that she began taking that about a week ago but over the last few days she has been unable to keep it down. She does have a history of hiatal hernia and Schatzki's ring as well as eosinophilic esophagitis. She had an EGD by Dr. Trejo on 04/26/2018. The patient says that over the last couple years her EOE has not been too bad. She also has a history of autoimmune hepatitis but says that she has been doing well with that for a period of 5 years. Before that, on 10/29/2016, she had EGD by Dr. Trejo that had abundant Helicobacter pylori positive gastritis. In the emergency room she was offered medicines to treat her pain but she did not want any. 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 She says that she did have difficulty with anesthesia the last time that she had an EGD because of something to do with her heart rate and she said just I felt like I was going to . Review of Systems Review of Systems Review of systems: 10 systems are reviewed and are negative except as mentioned elsewhere in the documentation. [facility] Medical History (Updated 07/31/24 @ 18:00 by Valerio Zheng DO) Hiatal hernia Seizure Eosinophilic esophagitis Autoimmune hepatitis Surgical History H/O arthroscopy of left knee History of tonsillectomy and adenoidectomy History of hysterectomy Family History Father History of stroke Legacy FamHx Problem: Diagnosed with Stroke Depression Heart disease Diabetes Hypertension Mother Fibromyalgia Neuropathy Depression Sister Hypertension Asthma Daughter Asthma Chronic sinus complaints Social History Smoking Status: Never smoker Substance Use Type: None Meds Medications and Allergies Allergies doxycycline Allergy (Unknown, Verified 07/31/24 08:20) Vomiting Iodinated Contrast Media (Iodinated Contrast- Oral and IV Dye) Allergy (Unknown,Verified 07/31/24 08:20) Difficulty Breathing promethazine (From Phenergan) Allergy (Unknown, Verified 07/31/24 08:20) Seizure scopolamine Allergy (Verified 07/31/24 08:20) Dizziness Home Medications omeprazole 40 mg capsule,delayed release 40 mg PO DAILY PRN heartburn 07/31/24 [History Confirmed 07/31/24] ondansetron 4 mg disintegrating tablet 4 mg PO Q8H PRN nausea and vomiting #10 tabs 07/31/24 [Rx] sucralfate 1 gram tablet (Carafate) 1 gm PO QID 4 weeks #112 tabs 07/31/24 [Rx] Allergy/Medication Comments: The patient states that she had only started taking the omeprazole less than a week ago and could not keep most doses down due to intractable vomiting. She has not yet picked up the Carafate tablets and has not used those in the past. Exam Physical Exam Vital Signs: Temp Pulse Resp BP Pulse Ox O2 Del Method 98.2 F 60 18 120/76 99 Room Air 07/31/24 15:32 07/31/24 15:32 07/31/24 15:32 07/31/24 15:32 07/31/24 15:32 07/31/24 15:56 Narrative: GEN: Awake, alert, oriented x 3. Lungs: Clear to auscultation bilaterally, no wheezing, no crackles. Heart: Regular rate and rhythm, no murmurs, rubs, or gallops. Abdomen: Soft, normal bowel sounds, no rigidity, guarding, or acute peritoneal signs. Results - Hospitalist H&P Lab Results Labs: Laboratory Last Values Corrected WBC 8.6 X10E3/uL (3.8-11.6) 07/31/24 09:37 Uncorrected WBC Count 8.6 x10E3/uL (3.8-11.6) 07/31/24 09:37 RBC 4.66 x10E6/uL (3.60-5.00) 07/31/24 09:37 Hgb 14.0 g/dL (11.8-15.4) 07/31/24 09:37 Hct 41.3 % (34.0-46.4) 07/31/24 09:37 MCV 88.7 fl (80-100) 07/31/24 09:37 MCH 30.1 pg (24.7-34.3) 07/31/24 09:37 MCHC 33.9 g/dL (32.0-35.0) 07/31/24 09:37 RDW 13.6 % (11.9-15.3) 07/31/24 09:37 Plt Count 248 x10E3/uL (150-450) 07/31/24 09:37 MPV 8.5 fl (6.3-10.7) 07/31/24 09:37 Neut % (Auto) 59.0 % (.) 07/31/24 09:37 Lymph % (Auto) 32.8 % (.) 07/31/24 09:37 [place] % (Auto) 7.1 % (.) 07/31/24 09:37 Eos % (Auto) 0.5 % (.) 07/31/24 09:37 Baso % (Auto) 0.6 % (.) 07/31/24 09:37 Nucleat RBC Rel Count 0.1 /100 WBC (0-0.5) 07/31/24 09:37 Neut # (Auto) 5.1 x10E3/uL (1.8-7.7) 07/31/24 09:37 Lymph # (Auto) 2.8 x10E3/uL (1.00-4.8) 07/31/24 09:37 [place] # (Auto) 0.6 x10E3/uL (0.0-0.8) 07/31/24 09:37 Eos # (Auto) 0.0 x10E3/uL (0.0-0.45) 07/31/24 09:37 Baso # (Auto) 0.0 x10E3/uL (0.0-0.2) 07/31/24 09:37 Monocyte Dist Width 17.14 % (0.00-20.00) 07/31/24 09:37 PT 12.0 Seconds (9.0-12.9) 07/31/24 09:46 INR 1.0 07/31/24 09:46 PHA Creatinine Clear 90.17 07/31/24 09:37 Sodium 141 mmol/L (136-145) 07/31/24 09:37 Potassium 3.3 mmol/L (3.5-5.1) L 07/31/24 09:37 Chloride 107 mmol/L (98-107) 07/31/24 09:37 Carbon Dioxide 26.5 mmol/L (21.0-31.0) 07/31/24 09:37 Anion Gap 10.8 mEq/L (6.0-15.0) 07/31/24 09:37 BUN 14 mg/dL (7-25) 07/31/24 09:37 Creatinine 0.83 mg/dL (0.60-1.20) 07/31/24 09:37 Est GFR (CKD-EPI) > 60.0 mL/Min 07/31/24 09:37 Glucose 85 mg/dL (70-100) 07/31/24 09:37 Calcium 8.8 mg/dL (8.6-10.3) 07/31/24 09:37 Magnesium 1.9 mg/dL (1.9-2.7) 07/31/24 09:37 Total Bilirubin 0.6 mg/dl (0.3-1.0) 07/31/24 09:37 Direct Bilirubin 0.10 mg/dL (0.03-0.18) 07/31/24 09:37 Indirect Bilirubin 0.5 mg/dL 07/31/24 09:37 AST 11 U/L (13-39) L 07/31/24 09:37 ALT 10 U/L (7-52) 07/31/24 09:37 Alkaline Phosphatase 79 U/L (34-104) 07/31/24 09:37 Troponin I High Sens 6.5 pg/mL (0.0-15.0) 07/31/24 09:37 Total Protein 6.4 gm/dL (6.4-8.9) 07/31/24 09:37 Albumin 4.0 gm/dL (3.5-5.7) 07/31/24 09:37 Globulin 2.4 gm/dL 07/31/24 09:37 Albumin/Globulin Ratio 1.7 07/31/24 09:37 Lipase 30.0 U/L (11.0-82.0) 07/31/24 09:37 Urine Color Yellow (Yellow) 07/31/24 09:10 Urine Appearance Cloudy (Clear) A 07/31/24 09:10 Urine pH 5.5 (5.0-9.0) 07/31/24 09:10 Ur Specific [place] 1.023 (1.001-1.030) 07/31/24 09:10 Urine Protein Negative mg/dL (Negative) 07/31/24 09:10 Urine Glucose (UA) Normal mg/dL (Normal) 07/31/24 09:10 Urine Ketones Negative (Negative) 07/31/24 09:10 Urine Occult Blood Negative (Negative) 07/31/24 09:10 Urine Nitrite Negative (Negative) 07/31/24 09:10 Urine Bilirubin Negative (Negative) 07/31/24 09:10 Urine Urobilinogen Normal mg/dL (Normal) 07/31/24 09:10 Ur Leukocyte Esterase 2+ (Negative) H 07/31/24 09:10 Urine RBC 3-4 /HPF (0-4) 07/31/24 09:10 Urine WBC 5-9 /HPF (0-4) H 07/31/24 09:10 Ur Squamous Epith Cells 5-9 /HPF (0-2) H 07/31/24 09:10 Urine Bacteria None seen /HPF (None Seen) 07/31/24 09:10 Hyaline Casts 0-8 /LPF (0-8) 07/31/24 09:10 Other Casts 1-2 /LPF (None Seen) H 07/31/24 09:10 Urine Mucus 4+ /LPF A 07/31/24 09:10 Urine HCG, Qual Negative 07/31/24 09:10 Assessment & Plan Assessment/Plan (1) Intractable vomiting with nausea: (2) Duodenitis: (3) Dehydration: (4) Epigastric abdominal pain: (5) Hypokalemia: Plan Assessment: Severe midepigastric abdominal pain, associated with intractable nausea vomiting and unable to keepanything down for the last 3 days. Previously had migraine headache that was treated by 2 ER visits to the [facility] emergencyroom, including with doses of Toradol. hypokalemia. Dehydration. History of hiatal hernia and Schatzki's ring. Plan: Clear liquid diet at this time. The patient is about ready to try sips of water. Protonix 40 mg IV twice daily. Rehydrate with 2 L of IV fluids. She can have nausea control with Zofran. I offered that she could have pain control with Tylenol but she is reluctant to swallow any pills at this time. Given her history of H. pylori positivity in 2017 and eosinophilic esophagitis in 2018 and Schatzki's ring I think that she would benefit from esophagogastroduodenoscopy. She is ordered to be n.p.o. after midnight with a consult to gastroenterology. IP vs OBS Justification Based on differential dx, clinical care plan, and risk of adverse events, if untreated, in my clinical judgement this patient requires an acute care setting as: OBSERVATION because of an expectation of an under 2 midnight stay. Estimated length of stay (# of days): 2 Documented By: Valerio Zheng DO [id number] Signed By: 07/31/24 1805 [facility]11-17-2024 Evaluation note* Diagnosis Onset Date Resolution Status Admit Date Abnormal CT of the abdomen acute July 31, 2024 1:14pm Dehydration acute July 1:14pm Duodenitis acute July 31, 2024 1:14pm Dyspepsia acute July 31, 2024 1:14pm Epigastric abdominal pain acute July 31, 2024 1:14pm Helicobacter positive gastritis acute July 31, 2 024 1:14pm Hypokalemia acute July 1:14pm Intractable vomiting with nausea acute July 31 2 024 1:14pm [facility] Work Phone: 1(355) 415-614311-17-2024 [facility]iology [facility] Main [place] [address] [place], [place] [id number] CT Scan Report Signed Patient: Trudy Wilder MR#: [id number] : 1975 Acct:[id number] Age/Sex: 48 / F ADM Date: 4 Loc: ER Room: Type: [facility] ER Attending Dr: Copies to: Catie Flores DO~ Ordering Provider: Catie Flores DO Date of Service: 07/31/24 CT/CT abdomen pelvis wo con: Abdominal Pain CT ABDOMEN AND PELVIS WITHOUT CONTRAST COMPARISON: 10/22/2016 CLINICAL DATA: Mid to upper abdominal pain with vomiting for the past few days. Spiral images were obtained through the abdomen and pelvis without contrast. This CT exam was performed using one or more following dose reduction techniques: Automated exposure control, adjustment of the mA and/or kV accordingto patient size, or use of iterative reconstruction technique. Limited cuts through the lung bases show no contributory findings. Assessment of the intra-abdominal organs is slightly limited by the absence of contrast. No calcified gallstones are identified. There is minor focal fat within the liver near the fossa of the ligamentum teres. Spleen and adrenal glands are within normal limits. The pancreas is unchanged in size and contour. There is question of subtle fibrofatty stranding near the head of the pancreas and correlation with amylase and lipase is suggested to exclude any possibility of acute pancreatitis. There is also apparent thickening of the wall of the adjacent duodenum. This could be reactive however duodenitis is also a possibility. There are no renal calculi or hydronephrosis. The abdominal aorta is normal caliber. Small lymph nodes are present. No ascites is seen. There is a tiny umbilical hernia containing fat. There are normal caliber small bowel loops. Mild stool is seen along the colon. The bonystructures are intact. Images through the pelvis show a normal appendix. There is no dilated small bowel. There is a smallamount of distal colonic stool. The right be a couple sigmoid diverticula. There is no active inflammation. The uterus is surgicallyabsent. The urinary bladder is not adequately distended for assessme nt. No free fluid is identified. CT/CT abdomen pelvis wo con IMPRESSION: NO BOWEL OR URINARY TRACT OBSTRUCTION. POSSIBLE MINOR ACUTE PANCREATITIS AND/OR DUODENITIS. CORRELATION AND FOLLOW- UPARE SUGGESTED. NO OTHER ACUTE FINDINGS. Impression dictated by: Jennie Del Real M.D.07/31/2024 9:42 AM Dictation Location: [id number]-02 Transcribed By: BIANCA 07/31/24941 Dictated By: Jennie Del Real MD 07/31/24935 Signed By: 07/31/24941 [facility] Work Phone: 1(555) 676-891611-04-2024 NotePatient Education Materials Name: Trudy Wiledr Current Date: 07/18/2024 12:57:13 [facility] : 1975 The following sheet(s) are the Patient Education Leaflets for Trudy Wilder Paste Mixer Preventing Vaginal Infection These steps can help you stay comfortable when treating a vaginal infection. They also help preventfuture vaginal infections. Keeping a healthy balance Factors [...] cotton crotch. Cotton keeps you cooler and skin drier than synthetics. ?Don't douche unless advised by [...] soaps, and deodorant tampons or pads. These cancause vaginal irritation. Staying healthy overall Good overall [...] for advice on how to start. ? [id number] [employer]. All rights reserved. This information is not intended as a substitute for professional medical care. Always follow your healthcare professional's instructions.[facility]10-21-2024 History of Present illness Narrative* Dallin Martinez, DAYSI - 07/04/2024 2:40 PM EDT HPI: Historian of HPI: patient Trudy Wilder is a 48 y.o. female who presents today to the Urgent Care with the following complaints and denials which have been present for 5 day(s) Pt states I did a urine test and I had plus 1for white blood cells. Pt is requesting STI swabs for STI only not urine send out. Last time thattold me I had a bacteria and it [...] be from recent use of metronidazole gel). 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 No odor. No lesions or [...] or severe back/abd pain. Follow-up with PCP ifno improvement in 3 days. Discussed urinalysis results. Vaginal swab sent for culture. Will call with results when available - metroNIDAZOLE (Flagyl) 500 MG tablet; Take 1 tablet (500 mg) by mouth every 12 (twelve) hours for7 days Dispense: 14 tablet; Refill: 0 - fluconazole (Diflucan) 150 MG tablet; Take 1 tablet (150 mg) by mouth 1 (one) time for 1 dose Dispense: 1 tablet; Refill: 0 documented in this encounterSoutheast Missouri [id number] History of Present illness Narrative* Shaikh Jose MD - 10/15/2023 5:13 PM ESTAssociated Problem(s): Screening for diabetes mellitus Screen for T2 DM. * Shaikh Jose MD - 10/15/2023 5:12 PM ESTAssociated Problem(s): Screening for hyperlipidemia Screen for HLD. * Shaikh Jose MD - 10/15/2023 5:12 PM ESTAssociated Problem(s): Bilateral lower extremity edema Bilateral LE [...] stockings for conservative/symptomatic treatment for her symptoms. * Shaikh Jose MD - 10/15/2023 5:10 PM ESTAssociated Problem(s): Autoimmune hepatitis treated with steroids (CMS/HCC) No recent flare up. Requires prednisone for flare ups. * Shaikh Jose MD - 10/15/2023 2:45 PM EST Subjective Patient ID: Trudy Wilder is a [...] tablet (150 mg) by mouth in the morning.Take 1 tab today; may repeat x 1 [...] to improve, for Recheck. documented in this encounterSoutheast Missouri [id number] Evaluation note* Encounter Date Diagnosis Assessment Notes Treatment Notes Treatment Clinical Notes Apr, Vaginal discharge (ICD-10 - N89.8) [...] reaction. Patient to follow with PCP or 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 as needed for persistent or worsening symptoms. Immediate eval if abdominal pain, fever, chills, body aches, back/flank pain, nausea, urinary complaints. Avoid douching and sexual activity at this time. Patient verbalizes understanding and is agreeable to treatment plan. [facility] Other 12-19-2022 Evaluation note* Encounter Date Diagnosis Assessment Notes Treatment Notes Treatment Clinical Notes Aug, Hepatitis, autoimmune (ICD-10 - K75.4) [facility] Other 04-04-2022 Evaluation note* Encounter Date Diagnosis [...] - R10.9) PATIENT DOES EXPERIENCE THIS DISCOMFORT. [facility] Other 02-09-2022 Evaluation note* Encounter Date Diagnosis [...] days. Oct, Vaginal irritation (ICD-10 - N89.8) [facility] Other 02-07-2022 Evaluation note* Encounter Date Diagnosis Assessment Notes Treatment Notes Treatment Clinical Notes Oct, Dysphagia (ICD-10 - R13.10) [facility] Other 01-28-2022 Evaluation note* Encounter Date Diagnosis Assessment Notes Treatment Notes Treatment Clinical Notes Sep, Hepatitis, autoimmune (ICD-10 - K75.4) Sep, Vomiting (ICD-10 - R11.10) Sep, Fatigue (ICD-10 - R53.83) [facility] Other 01-11-2022 Evaluation note* Encounter Date Diagnosis [...] CAN BE COMPLETED PER DR FOR PATIENT 11 Sep, 2021 Eosinophilic esophagitis (ICD-10 - K20.0) RESTART THE SINGULAIR AND COMPLETE FMLA [facility] [employer] Other Chiyz complaint+Reason for visit Narrative* Chief Complaint [facility]olt Reason for Visit Dietary surveillance and counseling Exercise counseling Obesity, Class II, BMI 35-39.9 [facility] Work Phone: Evaluation noteNo assessment information available [facility] Work Phone: Evaluation noteNo Information[facility] [employer] Other Evaluation note* Diagnosis Bilateral lower extremity [...] acute Obesity, Class II, BMI 35-39.9 acute [facility] Work Phone: Evaluation note* Diagnosis Class 2 [...] vulvovaginitis Dysuria documented in this encounter [facility] Diagnosis Onset Date Resolution Status Admit Date Duodenitis acute July 31, 2024 1:14pm [facility] Work Phone: Evaluation note* Diagnosis Class 2 [...] Special screening for malignant neoplasms, colon Acute vaginitis Unspecified vaginitis and vulvovaginitis documented in this encounter [facility]* Diagnosis Bilateral lower extremity edema- Primary Screening for hyperlipidemia Screening for lipoid disorders Screening for diabetes mellitus Autoimmune hepatitis treated with steroids (CMS/HCC) Annual physical exam- Primary Routine general medical examination at a health care facility Colon cancer screening Special screening for malignant neoplasms, colon Duodenal ulcer- Primary Nonalcoholic fatty liver disease Chronic rhinosinusitis Unspecified sinusitis (chronic) Class 2 obesity due to excess calories without serious comorbidity with body mass index (BMI) of 37.0 to 37.9 in adult documented in this encounter [facility]* Diagnosis Bilateral lower extremity edema- Primary Screening for hyperlipidemia Screening for lipoid disorders Screening for diabetes mellitus Autoimmune hepatitis treated with steroids (CMS/HCC) Annual physical exam- Primary Routine general medical examination at a health care facility Colon cancer screening Special screening for malignant neoplasms, colon Duodenal ulcer- Primary Nonalcoholic fatty liver disease Chronic rhinosinusitis Unspecified sinusitis (chronic) Class 2 obesity due to excess calories without serious comorbidity with body mass index (BMI) of 37.0 to 37.9 in adult Dysuria- Primary documented in this encounter [facility] HealthcareEvaluation note* Diagnosis Bilateral lower extremity edema- Primary Screening for hyperlipidemia Screening for lipoid disorders Screening for diabetes mellitus Autoimmune hepatitis treated with steroids (CMS/HCC) Annual physical exam- Primary Routine general medical examination at a health care facility Colon cancer screening Special screening for malignant neoplasms, colon Duodenal ulcer- Primary Nonalcoholic fatty liver disease Chronic rhinosinusitis Unspecified sinusitis (chronic) Class 2 obesity due to excess calories without serious comorbidity with body mass index (BMI) of 37.0 to 37.9 in adult Vaginal burning- Primary Other specified symptom associated with female genital organs Dysuria [facility] in this encounter [facility] [...] Surgical History hysterectomy Hospitalization History see above [facility] Other History general Narrative - Reported* Type [...] Surgical History hysterectomy Hospitalization History see above [facility] Other Family History No Family History Records [...] daughter Asthma Unknown Chronic sinus complaints Unknown Relationship Condition Age at Onset Recorded Date/T buffy father History of stroke Unknown Depression Unknown Heart disease Unknown Diabetes mellitus Unknown Hypertension Unknown mother Fibromyalgia Unknown Neuropathy Unknown sister Hypertension Unknown Asthma Unknown daughter Asthma Unknown Chronic sinus complaints Unknown Summary Purpose Advance Directives No Advanced Directives Records Found Advance Directive Response Recorded Date/ Time Advance Directives No May 9:27pm Advance Directive Response Recorded Date/ Time Advance Directives No May 10:27pm Chief Complaint and Reason for Visit Chief Complaint K75.4 Chief Complaint Admit Date stomach pain July 31, 2024 1:14pm Reason for Visit Admit Date Duodenitis July 31, 2024 1:14pm Chief Complaint Admit Date stomach pain July 31, 2024 1:14pm stomach pain August 01, 2024 7:11am Reason for Visit Admit Date Abnormal CT of the abdomen July 1:14pm Dehydration July 31, 2024 1:14pm Duodenitis July 31, 2024 1:14pm Dyspepsia July 31, 2024 1:14pm Epigastric abdominal pain July 31, 2024 1:14pm Helicobacter positive gastritis July 31, 2024 1:14pm Hypokalemia July 31, 2024 1:14pm Intractable vomiting with nausea Novembe r 2023 1:14pm Reason for Referral Specialty Diagnoses / Procedures Referred By eJff t Referred To Contact Radiology Diagnoses Bilateral lower extremity edema Procedures Vascular US lower extremity venous insufficiency bilateral Shaikh Garcia MD [address] [place] [address] [facility] [address] [place] [address] Phone: [phone] Referral ID Status Reason Start Date Expiration Date V isits Requested Visits Authorized [id number] Authorized 10/15/2023 04/12/2024 1 1 Additional Source Comments INFORMATION SOURCE (unrecogn ized section and content) DATE CREATED AUTHOR 04/06/2020 [facility] DATE CREATED AUTHOR AUTHOR'S ORGANIZ ATION 04/06/2020 [employer] DATE CREATED AUTHOR AUTHOR'S ORGANIZ ATION 11/09/2022 [facility] DATE CREATED AUTHOR AUTHOR'S ORGANIZ ATION 09/28/2024 [facility] DATE CREATED AUTHOR AUTHOR'S ORGANIZ ATION 01/30/2025 [facility] EPIC DATE CREATED AUTHOR AUTHOR'S ORGANIZ ATION 02/21/2025 [facility] REASON FOR VISIT (unrecogniz ed section and content) Reason Comments Leg Pain fariha Reason Onset Date Comments Med Refill 07/17/2024 Reason Comments Follow-up [facility] Care Teams (unrecognized sec tion and content) Team Status: Active Member Role Status Dates Viral Lewis MD Primary Care Provider Active Team Status: Inactive Member Role Status Dates Viral Lewis MD Primary Care Provider Active S tart: July 31, 2024 End: August 01, 2024 Catie Flores DO Emergency Provider Active Sta rt: July 31, 2024 End: August 01, 2024 Valerio Zheng DO Admit Provider Active Start: July 31, 2024 End: August 01, 2024 Spenser Yarbrough MD Attending Provider Active Start: July 31, 2024 End: August 01, 2024 Bowen Lozano MD Other Provider Active Start : July 31, 2024 End: August 01, 2024 Team Status: Active Member Role Status Dates Viral Lewis MD Primary Care Provider Active S tart: August 01, 2024 Catie Flores DO Emergency Provider Active Sta rt: August 01, 2024 Valerio Zheng DO Admit Provider Active Start: August 01, 2024 Spenser Yarbrough MD Other Provider Active Start: August 01, 2024 Bowen Lozano MD Attending Provider, Other Provider Active Start: August 01, 2024 Team Status: Active Member Role Status Dates Viral Lewis MD Primary Care Provider Active S tart: July 31, 2024 Catie Flores DO Emergency Provider Active Sta rt: July 31, 2024 Valerio Zheng DO Admit Provider , Attending Provider Active Start: July 31, 2024 Team Status: Inactive Member Role Status Dates Viral Lewis MD Primary Care Provider Active Nir Cotto MD Attending Provider Active Team Status: Inactive Member Role Status Dates aFina Miller APRN Attending Provider Active Business Services Specialist Sales Relationship Specialty Start Date End Date Viral Lewis MD [address] [place] [phone] PCP - General Family Medicine 10/15/23 Business Services Specialist Sales Relationship Specialty Start Date End Date Viral Lewis MD [address] [place] [phone] PCP - General Family Medicine 10/15/23 Business Services Specialist Sales Relationship Specialty Start Date End Date Viral Lewis MD [address] [place] [phone] PCP - General Family Medicine 10/15/23 Business Services Specialist Sales Relationship Specialty Start Date End Date Viral Lewis MD [address] [place] [phone] PCP - General Family Medicine 10/15/23 Business Services Specialist Sales Relationship Specialty Start Date End Date Viral Lewis MD [address] [place] [phone] PCP - General Family Medicine 10/15/23 Team Status: Inactive Member Role Status Dates Viral Lewis MD Primary Care Provider Active S tart: January 12, 2024 End: January 12, 2024 Arvind Jimenez DO Attending Provider Active St art: January 12, 2024 End: January 12, 2024 Business Services Specialist Sales Relationship Specialty Start Date End Date Viral Lewis MD [address] [place] [phone] PCP - General Family Medicine 10/15/23 Shaikh Garcia MD [address] [place] [phone] PCP - [facility] 04/14/24 Business Services Specialist Sales Relationship Specialty Start Date End Date Viral Lewis MD [address] [place] [phone] PCP - General Family Medicine 10/15/23 Shaikh Garcia MD [address] [place] [phone] PCP - [facility] 04/14/24 Business Services Specialist Sales Relationship Specialty Start Date End Date Viral Lewis MD [address] [place] [phone] PCP - General Family Medicine 10/15/23 Shaikh Garcia MD [address] [place] [phone] PCP - [facility] 04/14/24 Business Services Specialist Sales Relationship Specialty Start Date End Date Viral Lewis MD [address] [place] [phone] [facility] 10/15/23 Shaikh Garcia MD [address] [place] [phone] [facility] 04/14/24 Business Services Specialist Sales Relationship Specialty Start Date End Date Viral Lewis MD [address] [place] [phone] [facility] 10/15/23 Shaikh Garcia MD [address] [place] [phone] [facility] 04/14/24 Business Services Specialist Sales Relationship Specialty Start Date End Date Viral Lewis MD [address] [place] [phone] [facility] 10/15/23 Business Services Specialist Sales Relationship Specialty Start Date End Date Viral Lewis MD [address] [place] [phone] [facility] 10/15/23 Goals (unrecognized section and content) Goals [...] BE BASED ON THE PRIMARY CLINICAL RECORDS. [facility] provides no warranty or guarantee of the accuracy or completeness of information in this document.
--- NOTE | 2025-03-12 20:26 | ED_ITS ---
HPI HPI - Extremity Injury (Lower) General Chief Complaint: Extremity Injury, Lower Stated Complaint: left knee pain Time Seen by Provider: 03/12/25 20:16 Source: patient Mode of arrival: walk-in History of Present Illness HPI Narrative: 49-year-old female presents here chief complaint left knee injury. Patient was playing softball 2 days ago slipped and fell landing on her knee she has soft tissue abrasion across her patella and now has soft tissue swelling. Patient had a meniscal tear her before with her. She is concerned. She is able to fully flex and extend just complains of tightness due to swelling. Patient is unable to take ibuprofen or Motrin or NSAIDs due to duodenal ulcers. Related Data Previous Rx's ?Medication ?Instructions ?Recorded ketorolac 10 mg tablet 10 mg PO Q8H PRN pain 5 days #14 06/20/23 tabs ondansetron 4 mg disintegrating 4 mg PO Q6H PRN nausea and 06/20/23 tablet vomiting #20 tabs oxycodone-acetaminophen 5 mg-325 1 tab PO Q6H PRN pain #20 tabs 06/20/23 mg tablet (Percocet) [id number] 1 cap PO Q6H PRN cheo n #20 caps 07/29/24 50 mg-300 mg-40 mg capsule (Fioricet) Allergies Allergy/AdvReac Type Severity Reaction Status Date / Time doxycycline Allergy Unknown Vomiting Verified 07/28/24 21:13 Iodinated Contrast Media AdvReac Intermediate Palpitation Verified 07/28/24 21:13 s Opioid HPI Opioid Management Most Recent Pain and Opioid Data: Last Pain Scale 5 07/29/24, 21:41 Review of Systems ROS Status of ROS 10 or more systems reviewed and unremark able except as noted in history and below [facility] Social History Smoking status: Never smoker Little interest or pleasure in doing things: not at all Feeling down, depressed, or hopeless: not at all Exam Narrative Exam Narrative: All Systems are negative except as noted/marked.All systems reviewed and otherwise negative Nurses note and vital signs reviewed and patient is not hypoxic. General: The patient appears well and in no apparent distress. Patient is resting comfortably on cart. Skin: Warm, dry, no pallor noted. There is no rash noted. Head: Normocephalic, atraumatic Eye: Normal conjunctiva, no drainage, EOMI. PERRL Ears, Nose, Mouth, and Throat: oral mucosa is moist. Nares patent. Mouth without vesicles. Ear canals patent. Tm's without Erythema Musculoskeletal: Left patella, soft tissue swelling noted, status post fall , the patient has no evidence of calf tenderness, no pitting edema, symmetrical pulses noted bilaterally Neurological: A&O x4, normal speech Psychiatric: Cooperative Constitutional Vital Signs, click to edit/add: Last Vital Signs Temp 99.3 F 03/12/25 20:13 Pulse 96 H 03/12/25 20:13 Resp 18 03/12/25 20:13 BP 138/99 H 03/12/25 20:13 Pulse Ox 96 03/12/25 20:13 O2 Del Method Room Air 03/12/25 20:13 Course Vital Signs Vital signs: Vital Signs Temperature 99.3 F 03/12/25 20:13 Pulse Rate 96 H 03/12/25 20:13 Respiratory Rate 18 03/12/25 20:13 Blood Pressure 138/99 H 03/12/25 20:13 Pulse Oximetry 96 03/12/25 20:13 Oxygen Delivery Method Room Air 03/12/25 20:13 Temperature 99.3 F 03/12/25 20:13 Pulse Rate 96 H 03/12/25 20:13 Respiratory Rate 18 03/12/25 20:13 Blood Pressure 138/99 H 03/12/25 20:13 Pulse Oximetry 96 03/12/25 20:13 Oxygen Delivery Method Room Air 03/12/25 20:13 MDM - Extremity Injury (Lower) MDM Narrative Medical decision making narrative: 49-year-old female presents here chief complaint left knee injury. Patient was playing softball 2 days ago slipped and fell landing on her knee she has soft tissue abrasion across her patella and now has soft tissue swelling. Patient maldonado d a meniscal tear her before with her. She is concerned. She is able to fully flex and extend just complains of tightness due to swelling. Patient is unable to take ibuprofen or Motrin or NSAIDs due to duodenal ulcers. Left knee x-ray shows no acute deformity or fracture no dislocation. Patient appears to have soft tissue swelling consistent with sprain. Patient told to rest ice elevate Jovan wrap. She does not want any NSAIDs due to her history of ulcers. She will follow-up with Dr. Walker or Federico Otto. Patient agrees with plan of care Jovan wrap applied by nursing staff to the left knee prior to discharge. Extremity neurovascularly intact. Differential Diagnosis Differential diagnosis: Likely other (ABRASION, KNEE SPRAIN) Medical Records Attestation: I reviewed the patient's medical records. Discharge Plan Discharge Chief Complaint: Extremity Injury, Lower Clinical Impression: Knee abrasion, Knee sprain Patient Disposition: Home, Self-Care Time of Disposition Decision: 20:56 Condition: Good Prescriptions / Home Meds: No Action ketorolac 10 mg tablet 10 mg PO Q8H PRN (Reason: pain) 5 Days Qty: 14 0RF oxycodone-acetaminophen [Percocet] 5-325 mg tablet 1 tab PO Q6H PRN (Reason: pain) Qty: 20 0RF ondansetron 4 mg tablet,disintegrating 4 mg PO Q6H PRN (Reason: nausea and vomiting) Qty: 20 0RF [id number]-[id number] [Fioricet] 50-300-40 mg capsule 1 cap PO Q6H PRN (Reason: pain) Qty: 20 0RF Print Language: Turkish Instructions: Knee Sprain (ED), Abrasion (ED), P.R.I.C.E. Treatment (ED) Referrals: Jose Ingram DO [Physician] - 1 week Viral Loving MD [Primary Care Provider, Family Practice] - 1 week Discharge Date/Time: 03/12/25 21:11
== END 2025-03-12 21:11 | disposition home or self-care (01) ==
PROVIDERS: Emergency Provider Internal Medicine; PCP Family Medicine
DX: S83.92XA Sprain of unspecified site of left knee, initial encounter (principal); S80.212A Abrasion, left knee, initial encounter; W01.0XXA Fall on same level from slipping, tripping and stumbling without subsequent striking against object, initial encounter; Y93.64 Activity, baseball
CPT/HCPCS: 73562; 99283

== ENCOUNTER 2025-04-11 15:41 | Outpatient (OUT) | payer BC, SELFPAY ==
--- OUTSIDE RECORDS SUMMARY | 2024-05-10 10:00 | XMS_ITS ---
Author Organization [facility] [place] Address [address] [place] [address] Care Team Providers Care Superintendent Warehouse Name Role Phone Fabienne ADAM, Viral Primary Care Provider Unavailab Marian De Anda [phone] REASON FOR VISIT follow up on injection/ cook pickled meat refurbished orthotics Encounters Encounter Location Date Provider Diagnosis [facility] [address] [place] [address] 05/10/2024 Marian Jimenez Plan Of Treatment No Information Progress Notes * Trudy WILDER EDOB: [birth year] (49 yo F)Acc No.[id number]:05/10/2024 UNLOCKED PROGRESS NOTE Follow Up Patient: Darren PEREYRAll Lukas Provider: Curly Jimenez DPM :1975 A ge:48 Y S ex:Female Date:05/10/2024 Address:[address] [place], [place] [phone] Pcp:Viral Loving MD Subjective: * Chief Complaints: * 1 . Follow up on injection/ cook pickled meat refurbished orthotics. * Active Problem List M72.2 Plantar fascial fibr omatosis Modified On:02/01/2024W/U Status:confirmed M79.671 Pain in right foot Modified On:02/01/2024W/U Status:confirmed * Medical History: Objective: * Vitals: Assessment: Plan: * Treatment: * * Electronic signature of Akosua Jimenez DPM, [id number] on 04/11/2025 at 03:44 PM EDT Sign off status: Pending Visit Status: R /S (Rescheduled) * Provider: Curly Jimenez DPM Date: 0 05/10/2024 Generated for Gilda Faustin/Cash on: 0 04/11/2025 03:44 PM EDT
--- OUTSIDE RECORDS SUMMARY | 2024-05-24 10:15 | XMS_ITS ---
Author Organization [facility] [place] Address [address] [place] [address] Care Team Providers Care Engineering Documentation Specialist Name Role Phone Fabienne ADAM, Viral Primary Care Provider Unavailab Marian De Anda [phone] REASON FOR VISIT follow up on injection/ greens picker refurbished orthotics Encounters Encounter Location Date Provider Diagnosis [facility] [address] [place] [address] 05/24/2024 Marina Jimenez Plan Of Treatment No Information Progress Notes * Trudy WILDER EDOB: [birth year] (49 yo F)Acc No.[id number]:05/24/2024 UNLOCKED PROGRESS NOTE Follow Up Patient: Darren PEREYRAll Lukas Provider: Curly Jimenez DPM :1975 A ge:48 Y S ex:Female Date:05/24/2024 Address:[address] [place], [place] [phone] Pcp:Viral Loving MD Subjective: * Chief Complaints: * 1 . Follow up on injection/ greens picker refurbished orthotics. * Active Problem List M72.2 Plantar fascial fibr omatosis Modified On:02/01/2024W/U Status:confirmed M79.671 Pain in right foot Modified On:02/01/2024W/U Status:confirmed * Medical History: Objective: * Vitals: Assessment: Plan: * Treatment: * * Electronic signature of Akosua Jimenez DPM, [id number] on 04/11/2025 at 03:43 PM EDT Sign off status: Pending Visit Status: C ANC (Cancelled) * Provider: Curly Jimenez DPM Date: 0 05/24/2024 Generated for Gilda Faustin/Cash on: 0 04/11/2025 03:43 PM EDT
--- OUTSIDE RECORDS SUMMARY | 2025-04-05 14:45 | XMS_ITS | Encounter Summary ---
Author Organization [facility] Address [address] [facility] [place] [address] Care Team Providers Care Weight And Test Bar Clerk Name Role Phone Viral Loving MD Primary Care Provider [phone] Reason for Referral * Clinic-Administered Medication (Routine) - Closed Specialty Diagnoses / Procedures Referred By Jeff cortez Referred To Contact Orthopaedic Surgery Diagnoses Chondromalacia, patella, left Procedures L Inj/Asp: L knee Malcolm Otto PA [address] [place] [address] Phone: tel: fax: Referral ID Status Reason Start Date Expiration Date Visits Re quested Visits Authorized [id number] Closed 04/05/2025 10/02/2025 1 1 Reason for Visit * Reason Comments Pain Encounter Details Date Type Department Care Team (Late st Contact Info) Description 04/05/2025 2:45 PM EDT Office Visit [facility] [address] [place] [address] Malcolm Otto PA [address] [place] [address] Acute pain of left knee (Primary Dx); Chondromalacia, patella, left Social History Tobacco Use Types Packs/Day Years Used Date Smoking Tobacco: Never Passive Smoke Exposure: Never Smokeless Tobacco: Never Alcohol Use Standard Drinks/Week Comments Never 0 (1 standard drink = 0.6 oz pur e alcohol) Caffeine: soda PHQ-2 Answer Date Recorded Patient Health Questionnaire-2 Score 0 03/02/2024 Comments Unknown Sex and Gender Information Value Date Recorded Sex Assigned at Not on file Legal Sex Female 6:56 PM EDT Gender Identity Not on file Sexual Orientation Not on file documented as of this encounter Progress Notes * LEILA Brock - 04/05/2025 2:45 PM EDTAssociated Order(s): L Inj/Asp: L knee Post-Procedure Diagnose(s): Chondromalacia, patella, left Images from the original note were not included. Orthopedic Office note: NAME: Trudy Wilder : 1975 EST PT RECHECK (L) KNEE INJURY 3WKS 5DAYS (03/10/25); PT NOTES GOOD IMPROVEMENT XRAY 03/12/25 @[facility] IN CHANGE C/O ACHINESS- PRESSURE FEELING- FATIGUES EASILY- NO PAIN MEDS ADMITS DIFFUSE DISCOMFORT / SWELLING. DISCOMFORT WORSE WITH WB / AMBULATION. CAN RADIATE INTO MID-GALICIA. SOME CALF DISCOMFORT. DENIES BRUISING. ABRASIONS NOTED TO ANTERIOR ASPECT. DENIES N/T. ADMITS STIFFNESS / FULLNESS - LIMITED ROM. DENIES WEAKNESS / INSTABILITY. DENIES POPPING / GRINDING. ADMITS ELEVATION. ICING FREQUENTLY SINCE INJURY. TOOK IBU - BUT DISCONTINUED D/T HX OF DUODENAL ULCERS. NO TOPICALS. HX (L) KNEE SCOPE (TORN MENISCUS) @[facility] ~10 YRS AGO GERARDO: FALL WHILE PLAYING SOFTBALL - LANDED ON (L) KNEE RECENTLY DX DUODENAL ULCERS Knee Musculoskeletal Exam Gait Gait is normal. Inspection Leg length disparity: no discrepancy Left Erythema: none Effusion: mild Edema: none Ecchymosis: none Deformity: none Alignment: normal Palpation Left Left knee palpation is unremarkable. Increased warmth: none Masses: none Crepitus: patellofemoral Tenderness: present Lateral retinaculum: moderate Patella: mild Range of Motion Left Left knee range of motion is normal and full. Strength Left Left knee strength is normal. Extension: 5/5. Instability Left Instability signs: none - stable Varus stress grade: normal Valgus stress grade: normal Anterior drawer: normal Medial Michael test: negative Lateral Michael test: negative Neurovascular Left Left knee neurovascular exam is normal. Pulses - PT: normal Posterior tibial: 2+ Capillary refill: warm and well-perfused Special Signs Left Straight leg raise: normal Patellar apprehension: moderate General Constitutional: appears stated age Labored breathing: no Psychiatric: normal mood and affect Neurological: alert Skin: intact Lymphadenopathy: none Orders Placed This Encounter Procedures L Inj/Asp This order was created via procedure documentation L Inj/Asp: L knee on 04/05/2025 3:16 PM Indications: pain Details: 22 G needle, anterolateral approach Medications: 40 mg methylPREDNISolone acetate 40 MG/ML; 1 mL bupivacaine PF 0.5 % Outcome: tolerated well, no immediate complications UTILIZING ASEPTIC TECHNIQUE PT GIVEN INJECTION IN LEFT KNEE, NEUROVASC INTACT S/P INJ, TOLERATED WELL Procedure, treatment alternatives, risks and benefits explained, specific risks discussed. Consent was given by the patient. Patient was prepped and draped in the usual sterile fashion. Results ICD-10-CM 1. Acute pain of left knee M25.562 2. Chondromalacia, patella, left M22.42 Assessment & Plan Left lateral knee pain The examination today suggests chondromalacia patella. Previous prepatellar swelling has improved, alleviating concerns of bursitis. There is no significant pain when gently stressing for medial or lateral meniscus tear with Michael's test. An intra-articular cortisone injection is recommended today due to mild residual symptoms and past experiences of relief. The utility of an MRI was discussedat length, considering her symptoms of tightness and patellofemoral pain rather than sharp, catching, or locking pain, which have improved with previous conservative measures and home exercises. She is thankful and agrees to continue conservative measures pending the results of the injection. The in jection was administered at the bedside with her permission, after discussing the risks and benefits. If symptoms persist, an MRI will be considered for further evaluation. Treatment plan: An intra-articular cortisone injection was administered at the bedside with her permission, after discussing the risks and benefits. She agrees to continue conservative measures pending the results of the injection. Clinical decision making: The utility of an MRI was discussed at length, considering her symptoms of tightness and patellofemoral pain rather than sharp, catching, or locking pain, which have improved with previous conservative measures and home exercises. If symptoms persist, an MRI will be considered for further evaluation. Follow-up: She will follow up in 1 month. PROCEDURE Procedure Performed Intra-articular cortisone injection administered at the bedside. Questions answered in laymen terms at the bedside. The diagnosis, home exercise plan and any ongoing restrictions/ recommendations reviewed. If unable to be reached in office, I recommend evaluation at nearest Emergency Room if any symptoms worsened or new symptoms develop for requiring urgent evaluation. Visit was preformed using [employer] flight check pilot speech recognition. documented in this encounter Plan of Treatment Upcoming Encounters Date Type Department Care Team (Late st Contact Info) Description 04/14/2025 11:45 AM EDT Office Visit [facility] [address] [place] [address] Viral Loving MD [address] [place] [address] documented as of this encounter Procedures Procedure Name Priority Date/Time Associated Diagnosis Comments OK ARTHROCENTESIS ASPIR&/INJ MAJOR JT/BURSA W/O US Routine 04/05/2025 3:16 PM EDT Chondromalacia, patella, left documented in this encounter Results * OK ARTHROCENTESIS ASPIR&/INJ MAJOR JT/BURSA W/O US (04/05/2025 3:16 PM EDT) Narrative Malcolm Otto PA - 04/05/2025 3:16 PM EDT LEILA Brock 04/05/2025 4:26 PM L Inj/Asp: L knee on 04/05/2025 3:16 PM Indications: pain Details: 22 G needle, anterolateral approach Medications: 40 mg methylPREDNISolone acetate 40 MG/ML; 1 mL bupivacaine PF 0.5 % Outcome: tolerated well, no immediate complications UTILIZING ASEPTIC TECHNIQUE PT GIVEN INJECTION IN LEFT KNEE, NEUROVASC INTACT S/P INJ, TOLERATED WELL Procedure, treatment alternatives, risks and benefits explained, specific risks discussed. Consent was given by the patient. Patient was prepped and draped in the usual sterile fashion. us Malcolm DEE IN CLINIC/BEDSIDE ORDERABLES Final Result documented in this encounter Visit Diagnoses Diagnosis Acute pain of left knee- Primary Chondromalacia, patella, left documented in this encounter Administered Medications Inactive Administered Medications - up to 3 most recent administrations Medication Order MAR Action Action Date Dose Rate Site bupivacaine PF (Marcaine) 0.5 % injection 1 mL 1 mL, Injection, Once PRN Procedure, Starting on Thu04/05/25 at 1516, For 1 doseIndications:Chondromalacia, patella, left Given 04/05/2025 3:16 PM EDT 1 mL methylPREDNISolone acetate (DEPO-Medrol) injection 40 mg 40 mg, Intra-articular, Once PRN Procedure, Starting on Thu04/05/25 at 1516, For 1 doseIndications:Chondromalacia, patella, left Given 04/05/2025 3:16 PM EDT 40 mg documented in this encounter Care Teams Weight And Test Bar Clerk Relationship Specialty Start Date End Date Viral Loving MD [address] [place] [address] PCP - General Family Medicine 10/15/23 documented as of this encounter
--- OUTSIDE RECORDS SUMMARY | 2025-04-06 13:11 | XMS_ITS ---
Author Organization [facility] Address [address] [place] [address] Care Team Providers Care Equalizer Operator Name Role Phone Fabienne ADAM, Viral Primary Care Provider UnavailMarian Alford [phone] REASON FOR VISIT orthotics 2023 Encounters Encounter Location Date Provider Diagnosis [facility] [address] [place] [address] 04/06/2025 Marian Jimenez Plan Of Treatment No Information Progress Notes * Trudy WILDER EDOB: 8 (49 yo F)Acc No.[id number]:04/06/2025 Patient: Norberto Trudy OROZCO :1975 A ge:49 Y S ex:Female Address:[address] [place] [address], [address] * true * Date: Generated for Printi ng/Faxing/eTransmitting on: 0 04/11/2025 03:42 PM EDT
--- OUTSIDE RECORDS SUMMARY | 2025-04-11 15:42 | XMS_ITS | Encounter Summary ---
Author Organization [facility] Address [address] [place] [address] Care Team Providers Care Facepiece Line Supervisor Name Role Phone Viral Loving MD Primary Care Provider [phone] Viral Loving MD Unavailable Encounter Details Date Type Department Care Team (Late Contact Info) Description 11/22/2024 Orders Only [facility] [address] [place] [address] Viral Loving MD [address] [place] [address] Social History Tobacco Use Types Packs/Day Years [...] on file documented as of this encounter Plan of Treatment Upcoming Encounters Date Type Department Care Team ([facility] Contact Info) Description 04/14/2025 11:45 AM EDT Office Visit [facility] [address] [place] [address] Viral Loving MD [address] [place] [address] documented as of this encounter Visit Diagnoses Not on filedocumented in this encounter Care Teams Facepiece Line Supervisor Relationship Specialty Start Date End Date Viral Loving MD [address] [place] [address] PCP - General Family Medicine 10/15/23 Viral Loving MD [address] [place] [address] PCP - Luis Mcconnell 08/14/24 documented as of this encounter
--- OUTSIDE RECORDS SUMMARY | 2025-04-11 15:42 | XMS_ITS | Encounter Summary ---
Author Organization [facility] Address [address] [place] [address] Care Team Providers Care Photo Machine Operator Name Role Phone Viral Loving MD Primary Care Provider [phone] Encounter Details Date Type Department Care Team ([facility] Contact Info) Description 02/20/2025 Orders Only [facility] [address] [place] [address] Viral Loving MD [address] [place] [address] Social History Tobacco Use Types Packs/Day Years [...] Upcoming Encounters Date Type Department Care Team ([facility] Contact Info) Description 04/14/2025 11:45 AM EDT Office Visit [facility] [address] [place] [address] Viral Loving MD [address] [place] [address] documented as of this encounter Procedures Procedure Name Priority Date/Time Associated Diagnosis Comments BI MAMMOGRAM SCREENING TOMOSYNTHESIS BILATERAL Routine 02/20/2025 4:32 PM EDT documented in this encounter Results * Bilateral screening mammogram with tomosynthesis (02/20/2025 4:32 PM EDT) Anatomical Region Laterality Modality Breast Bilateral Mammography Viral Loving MD IMG BI PROCEDURES Final Result documented in this encounter Visit Diagnoses Not on filedocumented in this encounter Care Teams Photo Machine Operator Relationship Specialty Start Date End Date Viral Loving MD [address] [place] [address] PCP - General Family Medicine 10/15/23 documented as of this encounter
--- OUTSIDE RECORDS SUMMARY | 2025-04-11 15:42 | XMS_ITS | Clinical Summary ---
Author Organization [facility] Address [address] [place] [address] Phone Care Team Providers Care Drafter Electronic Name Role Phone Viral Loving MD Primary Care Provider + Social History Tobacco Use Types Packs/Day Years Used Date Smoking Tobacco: Never Assessed Comments Unknown Sex and Gender Information Value Date Recorded Sex Assigned at Not on file Legal Sex Female 7:15 AM EST Gender Identity Not on file Sexual Orientation Not on file Plan of Treatment Not on file Care Teams Drafter Electronic Relationship Specialty Start Date End Date Viral Loving MD PCP - General 02/12/18
--- OUTSIDE RECORDS SUMMARY | 2025-04-11 15:42 | XMS_ITS | Encounter Summary ---
Author Organization [facility] Address [address] [place] [address] Care Team Providers Care Case Managers Name Role Phone Viral Loving MD Primary Care Provider [phone] Encounter Details Date Type Department [facility] Team ([facility] Contact [facility] Description 03/13/2025 Abstract [facility] [address] [place] [address] Viral Loving MD [address] [place] [address] Social History Tobacco Use Types Packs/Day Years [...] Upcoming Encounters Date Type Department Care Team ([facility] Contact Info) Description 04/14/2025 11:45 AM EDT Office Visit [facility] [address] [place] [address] Viral Loving MD [address] [place] [address] documented as of this encounter Visit Diagnoses Not on filedocumented in this encounter Care Teams Case Managers Relationship Specialty Start Date End Date Viral Loving MD [address] [place] [address] PCP - General Family Medicine 10/15/23 documented as of this encounter
--- OUTSIDE RECORDS SUMMARY | 2025-04-11 15:42 | XMS_ITS | Encounter Summary ---
Author Organization [facility] Address [address] [place] [address] Care Team Providers Care Motion Picture Actor Name Role Phone Viral Loving MD Primary Care Provider [phone] Encounter Details Date Type Department Care Team ([facility] Contact Info) Description 01/31/2025 Results Follow-Up [facility] [address] [facility] [address] [place] [address] Christin Rowe, DAYSI [address] [facility] [address] [place] [address] Social History Tobacco Use Types Packs/Day Years [...] Encounters Date Type Department Care Team ([facility] Contact Info) Description 04/14/2025 11:45 AM EDT Office Visit [facility] [address] [place] [address] Viral Loving MD [address] [place] [address] documented as of this encounter Visit Diagnoses Not on filedocumented in this encounter Care Teams Motion Picture Actor Relationship Specialty Start Date End Date Viral Loving MD [address] [place] [address] PCP - General Family Medicine 10/15/23 documented as of this encounter
--- OUTSIDE RECORDS SUMMARY | 2025-04-11 15:43 | XMS_ITS | Patient Health Record ---
Author Organization [facility] [place] Address [address] [place] [address] Care Team Providers Care Carbon Cleaner Name Role Phone Viral Loving MD Primary Care Provider Marian Jones Unavailable [phone] Allergies Allergen (clinical drug ingredient) Drug/Non Drug Allergy documented on EMR Reaction Allergy Type Onset Date Status promethazine Phenergan Unknown Drug Allergy Acti ve doxycycline Doxycycline Unknown Drug Allergy Act flora Dye, Red Unknown Drug Allergy Active Reason For Referral No Information Medications Medication SIG (Take, Route, Frequency, Duration) Notes Start Date End Date Status Soft Interfacing -- as directed -- for 365 days Medically Necessary L2820 1 pair 02/15/2024 Active Voltaren 75 MG 1 tablet Orally BID for 30 days Not to start until after the steroids are complete 02/01/2024 Active Custom Molded Foot Orthotics -- as directed Daily for 365 days Medically Necessary L3020 1 pair 02/15/2024 Active predniSONE 5 MG 1 tablet Orally Once a day for 4 days Taper- day 1: 2 tablets by mouth Three times this day, day 2: 2 tablets by mouth twice this day, day 3: 1 tablet by mouth twice this day, day 4: 1 tablet by mouth once this day 02/01/2024 Active Social History Tobacco Use: Social History Observation Description Date Details (start date - stop date) Never Smoker NA - NA Tobacco Control (Standard) Question Answer Notes Tobacco use: Nonsmoker AUDIT-C (Standard) Question Answer Notes Did you have a drink containing alcohol in the p ast year? No Points 0 Interpretation Negative Problems Problem Type SNOMED Code ICD Code Onset Dates Problem Status W/U Status Risk Notes Problem Pain in right foot (314345800714785 ) Pain in right foot (M79.671) Active confirmed Problem Plantar fascial fibromatosis (57700533) Plantar fascial fibromatosis (M72.2) Active confirmed Vital Signs Heart Rate 92 /min 04/11/2024 Blood pressure diastolic 84 mm Hg 04/11/2024 Height 63 in 04/11/2024 Blood pressure systolic 121 mm Hg 04/11/2024 Weight 200 lbs 04/11/2024 BMI 35.42 kg/m2 04/11/2024 Encounters Encounter Location Date Provider Diagnosis [facility] [address] [place] [address] 04/11/2024 Marian Jimenez Plantar fascial fibromatosis M72.2 and Pain in right foot M79.671 [facility] [address] [place] [address] 04/15/2024 Marian Jimenez [facility] [address] [place] [address] 04/06/2025 Marian Jimenez Assessments Encounter Date Diagnosis (ICD Code) Assessment Notes Treatment Notes Treatment Clinical Notes Section Notes 04/11/2024 Plantar fascial fibromatosis (ICD-10 - M72.2) Educational material provided to the patient today. Extensive counseling on the condition. Injection given to patient rightheel with A mixture of 1cc of Depo-Medrol 40 mg and 2cc of Marcaine 0.5% plain. Patient tolerated this well. Follow up 2-4 weeks if no better consider surgery. will follow up in 1 month. D[address] PRP with Dr. Jovany Jimenez due to going back to [facility] send orthotics back to [facility] for file down the 1st metatarsal flange 04/11/2024 Pain in right foot (ICD-10 - M79.671) Plan Of Treatment No Information Insurance Providers Payer Name Payer Address Payer Phone Subscriber Number Group Number Insured Name Patient Relationship to Insured Coverage Start Date Coverage End Date [employer] PPO PLUS LOCAL PLAN [address] [place] [phone] [id number] Trudy Wilder Self - patient is the insured 2 Medications Administered Medication Instructions Date of Administration Dosage Notes Bupivacaine 04/11/2024 2 mL right heel methylPREDNISolone Acetate 04/11/2024 1 mL right heel Medical (General) History Medical History History ICD Code plantar fasciitis kidney stone autoimmune hepatitis Surgical History Surgery Date(Month/Year) hysterectomy tubal d&c T & A left knee surgery Hospitalization History Reason Date(Month/Year) see above
--- OUTSIDE RECORDS SUMMARY | 2025-04-11 15:43 | XMS_ITS | Encounter Summary ---
Author Organization [facility] Address [address] [place] [address] Care Team Providers Care Cuff Stitcher Name Role Phone Viral Loving MD Primary Care Provider [phone] Shaikh JAIR Garcia Unavailable [phone] Viral Loving MD Unavailable Encounter Details Date Type Department Care Team (Late st Contact Info) Description 07/06/2024 Telephone [facility] [address] [facility] [address] [place] [address] Pratibha Claudio NP [address] [facility] [address] [place] [address] Social History Tobacco Use Types Packs/Day Years [...] on file documented as of this encounter Miscellaneous Notes * Telephone Encounter - Melia Schafer MA - 07/06/2024 12:45 PM EDT Spoke to pt over the phone, pt verbally understood results and had no questions during time of call. * Telephone Encounter - Pratibha Claudio NP - 07/06/2024 12:23 PM EDT Please let the patient know her vaginal culture was positive for ureaplasma. She can stop the medication we started. I will send an antibiotic for her to take to treat the ureaplasma. documented in this encounter Plan of Treatment Upcoming Encounters Date Type Department Care Team (Late st Contact Info) Description 04/14/2025 11:45 AM EDT Office Visit [facility] [address] [place] [address] Viral Loving MD [address] [place] [address] documented as of this encounter Visit Diagnoses Diagnosis Acute vaginitis- Primary Unspecified vaginitis and vulvovaginitis documented in this encounter Care Teams Cuff Stitcher Relationship Specialty Start Date End Date Viral Loving MD [address] [place] [address] PCP - General Family Medicine 10/15/23 Shaikh Garcia MD [address] [place] [address] PCP - [place] [employer] 04/14/2408/13 Viral Loving MD [address] [place] [address] PCP - [place] [employer] 08/14/24 documented as of this encounter
--- OUTSIDE RECORDS SUMMARY | 2025-04-11 15:43 | XMS_ITS | Encounter Summary ---
Author Organization [facility] Address [address] [place] [address] Care Team Providers Care Newspaper Writer Name Role Phone Viral Loving MD Primary Care Provider [phone] Shaikh JAIR Garcia Unavailable [phone] Viral Loving MD Unavailable Encounter Details Date Type Department Care Team (Late Contact Info) Description 11/05/2023 Clinisync Result Encounter [facility] External Department Unsolicited Provider, Generic External Data Social History Tobacco Use Types Packs/Day Years Used Date Smoking Tobacco: Never Smokeless Tobacco: Never Alcohol Use Standard Drinks/Week Comments Never 0 (1 standard drink = 0.6 oz pur e alcohol) Caffeine: soda PHQ-2 Answer Date Recorded Patient Health Questionnaire-2 Score 0 10/15/2023 Comments Unknown Sex and Gender Information Value Date Recorded Sex Assigned at Not on file Legal Sex Female 6:56 PM EDT Gender Identity Not on file Sexual Orientation Not on file documented as of this encounter Plan of Treatment Upcoming Encounters Date Type Department Care Team ([facility] Contact Info) Description 04/14/2025 11:45 AM EDT Office Visit [facility] [address] [place] [phone] Viral Loving MD [address] [place] [address] documented as of this encounter Procedures Procedure Name Priority Date/Time Associated Diagnosis Comments FACILITY EST COMPREHENSIVE 11/05/2023 3:37 PM EST documented in this encounter Results * [facility] EST COMPREHENSIVE (11/05/2023 3:37 PM EST) Anatomical Region Laterality Modality Other 11/05/2023 3:37 PM EST Narrative 11/05/2023 3:37 PM EST [address] [address] Vein Report Signed Patient: IMAN WILDER MR#: [id number] : 1975 Acct:[id number] Age/Sex: 48 / F ADM Date: 11/05/23 Loc: Attending Dr: Elder Koenig M.D. Ordering Physician: Elder Koenig M.D. Date of Service: 11/05/23 Procedure(s): [facility] Comprehensive Accession Number(s): [id number] cc: Viral Loving M.D.; Elder Koenig M.D. Patient Name: IMAN WILDER MR#: [id number] : 1975 Exam Date: 11/05/2023 Ordering Doctor: DR ELDER KOENIG M.D. RADIOLOGY REPORT PROCEDURE: [facility] - OFFICE VISIT INITIAL COMPARISON: None. PROGRESS NOTES: [age] year old female who presents with a 1 year history of lower extremity swelling, pain. The patient's left leg symptoms are worse than the right. There was progression of symptoms initially, but things have started to improve. The pain and swelling increases with prolonged leg dependency. The patient describes an improvement with rest, elevation, exercise, decreased salt intake, change in diet. The patient denies any signs and symptoms to suggest arterial ischemia. The patient describes a family history heart disease, diabetes, hypertension. The patient has drinking and smoking history of : None. Patient has a past medical history significant for obesity, kidney stones, bilateral lower extremity edema. The patient denies a history of deep venous thrombus or pulmonary embolus. See separate history and physical for medication list. No prior treatment for varicose or spider veins. No current use of compression stockings. After review of nurse notes, history and physical exam I discussed at length the pathophysiology of venous hypertension and possible treatments, therapies and strategies available. We discussed at length the importance of elevating the lower extremities above the level of the heart, increased physical activity and compression stocking use. Ultrasound venous reflux study performed today was discussed at length with the patient. The report demonstrates mildly dilated proximal right great saphenous vein with moderate reflux in the proximal segment. The remainder of the right great saphenous vein is normal caliber with only mild reflux. No abnormality of the right small saphenous, anterior accessory saphenous, left great saphenous and small saphenous veins.. PHYSICAL EXAM: The right leg demonstrates no visible varicosities, no significant spider veins, no ulceration, no significant edema, no skin discoloration. The left leg demonstrates no visible varicosities, no significant spider veins, no ulceration, no significant edema, no skin discoloration. Both thighs, legs and feet were symmetrically warm to the touch. Good posterior tibial and dorsalis pedis pulses were present bilaterally. VEIN/VC Facility EST Comprehensive IMPRESSION: 1. Mild right great saphenous venous insufficiency 2. No significant lower extremity varicose veins 3. No significant lower extremity subcutaneous edema 4. No flow significant arterial disease 5. CEAP: C 0, EN, AN, PN PLAN: 1. Continued use of compression stockings 2. Elevated legs and increased physical activity symptomatic relief 3. No treatment for vein disease recommended at this time. Please follow-up in future as needed. Nurse notes, history and physical were reviewed and confirmed, see attached forms. The nurse was present throughout the physical exam and consultation Dictated by: Ty Aguirre M.D. on 11/05/2023 at 15:29 Approved by: Ty Aguirre M.D. on 11/05/2023 at 15:36 Dictated By: Ty Aguirre M.D. Signed By: 11/05/23 1537 DD/ 1537 TD/TT: Faculty Instructor: Procedure Note Radiology, Radiologist, - 11/05/2023 [place] [address] Vein Report Signed Patient: IMAN WILDER EMR#: [id number] : 1975Acct:[id number] Age/Sex: 48 / FADM Date: 11/05/23 Loc: Attending Dr: Elder Koenig M.D. Ordering Physician: Elder Koenig M.D. Date of Service: 11/05/23 Procedure(s): [facility] Accession Number(s): [id number] cc: Viral Loving M.D.; Elder Koenig M.D. Patient Name: IMAN WILDER MR#: [id number] : 1975 Exam Date: 11/05/2023 Ordering Doctor: DR ELDER KOENIG M.D. RADIOLOGY REPORT PROCEDURE: [facility] COM[facility] VEIN C[facility] - OFFICE VISIT INITIAL COMPARISON: None. PROGRESS NOTES: [age] year old female who presents with a 1 year history of lower extremity swelling, pain. The patient's left leg symptoms are worse thanthe right. There was progression of symptoms initially, but things havestarted to improve. The pain and swelling increases with prolonged leg dependency.The patient describes an improvement with rest, elevation, exercise, decreased salt intake, change in diet. The patient denies any signs and symptoms to suggest arterial ischemia. The patient describes a family history heart disease, diabetes,hypertension. The patient has drinking and smoking history of : None. Patient has apast medical history significant for obesity, kidney stones, bilateral lower extremity edema. The patient denies a history of deep venous thrombus or pulmonary embolus. See separate history and physical for medication list. No prior treatmentfor varicose or spider veins. No current use of compression stockings. After review of nurse notes, history and physical exam I discussed atlength the pathophysiology of venous hypertension and possible treatments,therapies and strategies available. We discussed at length the importance ofelevating the lower extremities above the level of the heart, increased physical activity and compression stocking use. Ultrasound venous reflux study performed today was discussed at lengthwith the patient. The report demonstrates mildly dilated proximal right great saphenous vein with moderate reflux in the proximal segment. Theremainder of the right great saphenous vein is normal caliber with only mild reflux.No abnormality of the right small saphenous, anterior accessory saphenous,left great saphenous and small saphenous veins.. PHYSICAL EXAM: The right leg demonstrates no visible varicosities, no significant spider veins, no ulceration, no significant edema, no skin discoloration. The left leg demonstrates no visible varicosities, no significant spider veins, no ulceration, no significant edema, no skin discoloration. Both thighs, legs and feet were symmetrically warm to the touch. Good posterior tibial and dorsalis pedis pulses were present bilaterally. VEIN/VC Facility EST Comprehensive IMPRESSION: 1. Mild right great saphenous venous insufficiency 2. No significant lower extremity varicose veins 3. No significant lower extremity subcutaneous edema 4. No flow significant arterial disease 5. CEAP: C 0, EN, AN, PN PLAN: 1. Continued use of compression stockings 2. Elevated legs and increased physical activity symptomatic relief 3. No treatment for vein disease recommended at this time. Pleasefollow-up in future as needed. Nurse notes, history and physical were reviewed and confirmed, seeattached forms. The nurse was present throughout the physical exam and consultation Dictated by: Ty Aguirre M.D. on 11/05/2023 at 15:29 Approved by: Ty Aguirre M.D. on 11/05/2023 at 15:36 Dictated By: Ty Aguirre M.D. Signed By:11/05/23 1537 DD/ 1537 TD/TT: Faculty Instructor: Generic External Data Provider [facility] Final Result documented in this encounter Visit Diagnoses Not on filedocumented in this encounter Care Teams Newspaper Writer Relationship Specialty Start Date End Date Viral Loving MD [address] [place] [address] PCP - General Family Medicine 10/15/23 Shaikh Garcia MD [address] [place] [address] [facility] 04/[facility] Viral Loving MD [address] [place] [address] PCP - [place] [employer] 08/14/24 documented as of this encounter
--- OUTSIDE RECORDS SUMMARY | 2025-04-11 15:43 | XMS_ITS | Encounter Summary ---
Author Organization [facility] Address [address], [address] [place] [address] Care Team Providers Care Customer Service Correspondence Clerk Name Role Phone Unavailable Primary Care Provider Unavailabl e Reason for Visit * Reason Comments Medication Refill Encounter Details Date Type Department Care Team (Late st Contact Info) Description 06/26/2020 Refill [facility] Obstetrics & Gynecology [address], [address] [place] [address] Carrie Jackson, PROJECT PRODUCTION ENGINEER - [facility] [address] [place] [address] Medication Refill Social History Tobacco Use Types Packs/Day Years Used Date Smoking Tobacco: Never Assessed Comments Unknown Sex and Gender Information Value Date Recorded Sex Assigned at Not on file Legal Sex Female 12:30 PM EST Gender Identity Not on file Sexual Orientation Not on file documented as of this encounter Plan of Treatment Not on file documented as of this encounter Visit Diagnoses Not on filedocumented in this encounter
--- OUTSIDE RECORDS SUMMARY | 2025-04-11 15:43 | XMS_ITS | Encounter Summary ---
Author Organization [facility] Address [address] [place] [address] Care Team Providers Care Weaver [employer]ire Cord Name Role Phone Viral Loving MD Primary Care Provider [phone] Shaikh JAIR Garcia Unavailable [phone] Viral Loving MD Unavailable Encounter Details [...] Upcoming Encounters Date Type Department Care Team ([facility] Contact Info) Description 04/14/2025 11:45 AM EDT Office Visit [facility] [address] [place] [phone] Viral Loving MD [address] [place] [phone] documented as of this encounter Procedures Procedure Name Priority Date/Time Associated Diagnosis Comments VC EXT VENOUS REFLUX CHIN LMTD 11/05/2023 3:24 PM EST documented in this encounter Results * VC EXT VENOUS REFLUX CHIN LMTD (11/05/2023 3:24 PM EST) Anatomical Region Laterality Modality Other 11/05/2023 3:24 PM EST Narrative 11/05/2023 3:25 PM EST [address] [address] Vein Report Signed Patient: IMAN WILDER MR#: [id number] : 1975 Acct:[id number] Age/Sex: 48 / F ADM Date: 11/05/23 Loc: VC Attending Dr: Elder Koenig M.D. Ordering Physician: Elder Koenig M.D. Date of Service: 11/05/23 Procedure(s): VC EXT Venous Reflux CHIN LMTD Accession Number(s): [id number] cc: Viral Loving M.D.; Elder Koenig M.D. Patient Name: IMAN WILDER MR#: [id number] : 1975 Exam Date: 11/05/2023 Ordering Doctor: DR ELDER KOENIG M.D. RADIOLOGY REPORT PROCEDURE: VC EXT VENOUS REFLUX CHIN LMTD COMPARISON: None. INDICATIONS: I83.813 Bilateral painful varicose veins TECHNIQUE: Duplex imaging of the lower extremity to assess the deep and superficial venous system for the presence of deep or superficial venous incompetence and to document the location and severity of disease. The study includes evaluation of the great saphenous vein (GSV), anterior accessory saphenous vein (AASV) and small saphenous vein (SSV). Patient scanned in reverse Trendelenburg and standing. FINDINGS: RIGHT LOWER EXTREMITY: Saphenofemoral Junction Reflux: Yes 7.7mm 2.5 sec GSV: Diam (mm) Reflux/ Time (sec) Proximal Thigh 6.6 Yes 2.7 Mid Thigh 4.3 No Distal Thigh 5.4 Yes 1.0 Prox Calf 4.6 Yes 0.7 Mid Calf 3.5 Yes 0.8 Saphenopopliteal Junction Reflux: 2.3mm No SSV: Proximal Calf 2.7 Mid Calf 2.5 No AASV: Proximal Thigh 4.3 No Mid Thigh 2.6 No Distal Thigh Thrombi: No acute or chronic thrombus visualized Compressibility: Normal Flow: Normal Preforator: Dist/med calf 2.8mm with 0s reflux. Prox/med calf 3.2mm with 0s reflux. Tech Note: Incompetent GSV. Patent varicose vein mid/med calf 4.1mm with 0s reflux. LEFT LOWER EXTREMITY: Saphenofemoral Junction Reflux: No 5.3 mm sec GSV: Diam (mm) Reflux/Time (sec) Proximal Thigh 2.7 No Mid Thigh 3.2 Yes 0.5 Distal Thigh 3.9 No Prox Calf 3.6 No Mid Calf 3.2 No Saphenopopliteal Junction Relux: 2.1 mm N/A SSV: Proximal Calf 1.8 No Mid Calf N/A AASV: Not present Proximal Thigh Mid Thigh Distal Thigh Thrombi: No acute or chronic thrombus visualized Compressibility: Normal Flow: Normal Lead Manufacturing Engineer: Dist/med calf 3.1mm with 0s reflux. Tech Note: No incompetent or varicose veins present. CONCLUSION: 1. 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 Dictated by: Ty Aguirre M.D. on 11/05/2023 at 14:25 Approved by: Ty Aguirre M.D. on 11/05/2023 at 15:24 Dictated By: Ty Aguirre M.D. Signed By: 11/05/23 1525 DD/ 1524 TD/TT: Rodding Anode Worker: Procedure Note Radiology, Radiologist, MD - 11/05/2023 [place] [address] Vein Report Signed Patient: IMAN WILDER EMR#: [id number] : 1975Acct:[id number] Age/Sex: 48 / FADM Date: 11/05/23 Loc: VC Attending Dr: Elder Koenig M.D. Ordering Physician: Elder Koenig M.D. Date of Service: 11/05/23 Procedure(s): VC EXT Venous Reflux CHIN LMTD Accession Number(s): [id number] cc: Viral Loving M.D.; Elder Koenig M.D. Patient Name: IMAN WILDER MR#: [id number] : 1975 Exam Date: 11/05/2023 Ordering Doctor: DR ELDER KOENIG M.D. RADIOLOGY REPORT PROCEDURE: VC EXT VENOUS REFLUX CHIN LMTD COMPARISON: None. INDICATIONS: I83.813 Bilateral painful varicose veins TECHNIQUE: Duplex imaging of the lower extremity to assess the deepand superficial venous system for the presence of deep or superficial venous incompetence and to document the location and severity of disease. Thestudy includes evaluation of the great saphenous vein (GSV), anterior accessory saphenous vein (AASV) and small saphenous vein (SSV). Patient scanned in reverse Trendelenburg and standing. FINDINGS: RIGHT LOWER EXTREMITY: Saphenofemoral Junction Reflux: Yes 7.7mm 2.5 sec GSV: Diam (mm) Reflux/ Time (sec) Proximal Thigh 6.6 Yes 2.7 Mid Thigh 4.3 No Distal Thigh 5.4 Yes 1.0 Prox Calf 4.6 Yes 0.7 Mid Calf 3.5 Yes 0.8 Saphenopopliteal Junction Reflux: 2.3mm No SSV: Proximal Calf 2.7 Mid Calf 2.5 No AASV: Proximal Thigh 4.3 No Mid Thigh 2.6 No Distal Thigh Thrombi: No acute or chronic thrombus visualized Compressibility: Normal Flow: Normal Preforator: Dist/med calf 2.8mm with 0s reflux. Prox/med calf 3.2mm with0s reflux. Tech Note: Incompetent GSV. Patent varicose vein mid/med calf 4.1mm with0s reflux. LEFT LOWER EXTREMITY: Saphenofemoral Junction Reflux: No 5.3 mm sec GSV: Diam (mm) Reflux/Time (sec) Proximal Thigh 2.7 No Mid Thigh 3.2 Yes 0.5 Distal Thigh 3.9 No Prox Calf 3.6 No Mid Calf 3.2 No Saphenopopliteal Junction Relux: 2.1 mm N/A SSV: Proximal Calf 1.8 No Mid Calf N/A AASV: Not present Proximal Thigh Mid Thigh Distal Thigh Thrombi: No acute or chronic thrombus visualized Compressibility: Normal Flow: Normal Lead Manufacturing Engineer: Dist/med calf 3.1mm with 0s reflux. Tech Note: No incompetent or varicose veins present. CONCLUSION: 1. 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 Dictated by: Ty Aguirre M.D. on 11/05/2023 at 14:25 Approved by: Ty Aguirre M.D. on 11/05/2023 at 15:24 Dictated By: Ty Aguirre M.D. Signed By:11/05/23 1525 DD/ 1524 TD/TT: Rodding Anode Worker: us Generic External Data Provider [facility] Final Result documented in this encounter Visit Diagnoses Not on filedocumented in this encounter Care Teams [employer] Relationship Specialty Start Date End Date Viral Loving MD [address] [place] [address] PCP - General Family Medicine 10/15/23 Shaikh Garcia MD [address] [place] [address] PCP - [employer] 04/14/2408/13 Viral Loving MD [address] [place] [address] PCP - [employer] 08/14/24 documented as of this encounter
--- OUTSIDE RECORDS SUMMARY | 2025-04-11 15:43 | XMS_ITS | Encounter Summary ---
Author Organization [facility] Address [address] [place] [address] Care Team Providers Care Sales Record Clerk Name Role Phone Viral Loving MD Primary Care Provider Shaikh JAIR Garcia Unavailable [phone] Viral Loving MD Unavailable Encounter Details Date Type Department Care Team (Late Contact Info) Description 08/01/2024 Orders Only [facility] [address] [place] [address] Neptali Herbert MD [address] [place] [address] Social History Tobacco Use Types Packs/Day Years [...] Upcoming Encounters Date Type Department Care Team ([facility] Contact Info) Description 04/14/2025 11:45 AM EDT Office Visit [facility] [address] [place] [address] Viral Loving MD [address] [place] [address] documented as of this encounter Procedures Procedure Name Priority Date/Time Associated Diagnosis Comments CT HEAD OR BRAIN W/ & W/O CONTRAST Routine 07/29/2024 3:17 PM EST documented in this encounter Results * CT HEAD OR BRAIN W/ & W/O CONTRAST (07/29/2024 3:17 PM EST) Anatomical Region Laterality Modality Radiographic Ami ging us Neptali Herbert MD IMG XR PROCEDURES Final Resul t documented in this encounter Visit Diagnoses Not on filedocumented in this encounter Care Teams Sales Record Clerk Relationship Specialty Start Date End Date Viral Loving MD [address] [place] [address] PCP - General Family Medicine 10/15/23 Shaikh Garcia MD [address] [place] [address] PCP - [place] [employer] 04/14/2408/13 Viral Loving MD [address] [place] [address] PCP - [place] [employer] 08/14/24 documented as of this encounter
--- OUTSIDE RECORDS SUMMARY | 2025-04-11 15:43 | XMS_ITS | Clinical Summary ---
Author Organization [facility] Address [address] [place] [address], [address] [place] [address] Care Team Providers Care Food Safety Field Specialist Name Role Phone Unavailable Primary Care Provider Unavailabl e Social History Tobacco Use Types Packs/Day Years Used Date Smoking Tobacco: Never Assessed Comments Unknown Sex and Gender Information Value Date Recorded Sex Assigned at Not on file Legal Sex Female 12:30 PM EST Gender Identity Not on file Sexual Orientation Not on file Plan of Treatment Not on file
--- OUTSIDE RECORDS SUMMARY | 2025-04-11 15:44 | XMS_ITS | Encounter Summary ---
Author Organization [facility] Address [address] [place] [address] Care Team Providers Care Metal Hardener Name Role Phone Viral Loving MD Primary Care Provider [phone] Encounter Details Date Type Department Care Team (Late st Contact Info) Description 04/06/2025 Telephone [facility] [address] [place] [address] Viral Loving MD [address] [place] [address] Social History Tobacco Use Types Packs/Day Years [...] encounter Miscellaneous Notes * Telephone Encounter - Viral Loving MD - 04/06/2025 1:54 PM EDT Lab order in chart, please fax. * Telephone Encounter - Toshia Waters - 04/06/2025 9:26 AM EDT Trudy would like an order for blood work to check levels concerning her autoimmune disease. She is tired and itchy. [phone]. documented in this encounter Plan of Treatment Upcoming Encounters Date Type Department Care Team (Late st Contact Info) Description 04/14/2025 11:45 AM EDT Office Visit [facility] [address] [place] [address] Viral Loving MD [address] [place] [address] Scheduled Orders Name Type Priority Associated Diagnoses Orde r Schedule Hemoglobin A1c Lab Routine Annual physical exam Expected: 04/06/2025 (Approximate), Expires: 04/06/2026 Basic metabolic panel Lab Routine Annual physical exam Expected: 04/06/2025 (Approximate), Expires: 04/06/2026 CBC and differential Lab Routine Annual physical exam Expected: 04/06/2025 (Approximate), Expires: 04/06/2026 Hepatic function panel Lab Routine Annual physical exam Expected: 04/06/2025 (Approximate), Expires: 04/06/2026 Lipid panel Lab Routine Annual physical exam Expected: 04/06/2025 (Approximate), Expires: 04/06/2026 TSH W/REFLEX TO FT4 Lab Routine Annual physical exam Expected: 04/06/2025 (Approximate), Expires: 04/06/2026 Sedimentation rate, automated Lab Routine Arthralgia, unspecified joint Expected: 04/06/2025 (Approximate), Expires: 04/06/2026 C-reactive protein Lab Routine Autoimmune hepatitis treated with steroids (HCC) Expected: 04/06/2025 (Approximate), Expires: 04/06/2026 JERRY Lab Routine Arthralgia, unspecified joint Expected: 04/06/2025 (Approximate), Expires: 04/06/2026 Rheumatoid factor Lab Routine Arthralgia, unspecified joint Expected: 04/06/2025 (Approximate), Expires: 04/06/2026 documented as of this encounter Visit Diagnoses Diagnosis Autoimmune hepatitis treated with steroids (HCC)- Primary Annual physical exam Routine general medical examination at a health care facility Arthralgia, unspecified joint documented in this encounter Care Teams Metal Hardener Relationship Specialty Start Date End Date Viral Loving MD [address] [place] [address] PCP - General Family Medicine 10/15/23 documented as of this encounter
--- OUTSIDE RECORDS SUMMARY | 2025-04-11 15:44 | XMS_ITS | Encounter Summary ---
Author Organization [facility] Address [address] [place] [address] Care Team Providers Care Manufacturing Operations Manager Name Role Phone Viral Loving MD Primary Care Provider Viral Loving MD Primary Care Provider [phone] Shaikh JAIR Garcia Unavailable [phone] Viral Loving MD Unavailable Encounter Details Date Type Department Care Team ([facility] Contact Info) Description 09/03/2023 Orders Only [facility] [address] [place] [address] Lilia Bucio, GOLF CART ASSEMBLER [address] [place] [address] Social History Tobacco Use Types Packs/Day Years Used Date Smoking Tobacco: Never Smokeless Tobacco: Never Alcohol Use Standard Drinks/Week Comments Never 0 (1 standard drink = 0.6 oz pur e alcohol) Caffeine: soda Comments Unknown Sex and Gender Information Value Date Recorded Sex Assigned at Not on file Legal Sex Female 6:56 PM EDT Gender Identity Not on file Sexual Orientation Not on file documented as of this encounter Plan of Treatment Upcoming Encounters Date Type Department Care Team ([facility] Contact Info) Description 04/14/2025 11:45 AM EDT Office Visit [facility] [address] [place] [address] Viral Loving MD [address] [place] [address] documented as of this encounter Procedures Procedure Name Priority Date/Time Associated Diagnosis Comments THROAT CULTURE Routine 09/03/2023 10:20 AM EST documented in this encounter Results * Throat culture (09/03/2023 10:20 AM EST) Swab Throat swab / Unknown us Lilia Bucio GOLF C[employer] ASSEMBLER LAB MICROBIOLOGY - GENERAL ARIANA BROWN Final Result documented in this encounter Visit Diagnoses Not on filedocumented in this encounter Care Teams Manufacturing Operations Manager Relationship Specialty Start Date End Date Viral Loving MD PCP - General Family Medicine 03/18/23 10/14/23 Viral Loving MD [address] [place] [address] PCP - General Family Medicine 10/15/23 Shaikh Garcia MD [address] [place] [address] PCP - [place] [employer] 04/14/2408/13 Viral Loving MD [address] [place] [address] PCP - [place] [employer] 08/14/24 documented as of this encounter
--- OUTSIDE RECORDS SUMMARY | 2025-04-11 15:44 | XMS_ITS | Encounter Summary ---
Author Organization [facility] Address [address] [place] [address] Care Team Providers Care Compressor House Operator Name Role Phone Viral Loving MD Primary Care Provider Source Comments In the event this information is protected by the Federal Confidentiality of Alcohol and Drug AbusePatient Records regulations: The Federal rules restrict any use of the information to criminally investigate or prosecute any alcohol or drug abuse patient.[facility] Encounter Details Date Type Department Care Team (Late st Contact Info) Description 07/07/2019 Patient Msg Otolaryngology [address] [id number] Jose Rafael Patino MD [address] [place], [place] [phone] Request an Appointment Social History Tobacco Use Types Packs/Day Years Used Date Smoking Tobacco: Never Smokeless Tobacco: Never Alcohol Use Standard Drinks/Week Comments No 0 (1 standard drink = 0.6 oz pur e alcohol) Comments No Sex and Gender Information Value Date Recorded Sex Assigned at Not on file Legal Sex Female 10:18 AM EST Gender Identity Not on file Sexual Orientation Not on file documented as of this encounter Plan of Treatment Not on file documented as of this encounter Visit Diagnoses Not on filedocumented in this encounter Care Teams Compressor House Operator Relationship Specialty Start Date End Date Viral Loving MD PCP - General Family Medicine 02/08/14 documented as of this encounter
--- OUTSIDE RECORDS SUMMARY | 2025-04-11 15:44 | XMS_ITS | Encounter Summary ---
Author Organization [facility] Address [address] [place] [address] Care Team Providers Care Section Plotter Operator Name Role Phone Viral Loving MD Primary Care Provider [phone] Viral Loving MD Primary Care Provider Shaikh JAIR Garcia Unavailable [phone] Viral Loving MD Unavailable Encounter Details Date Type Department Care Team ([facility] Contact Info) Description 04/15/2023 Abstract [facility] [address] [place] [phone] Mary Silvestre, DPM [address] [place], [place] [phone] Social History Tobacco Use Types Packs/Day Years Used Date Smoking Tobacco: Never Smokeless Tobacco: Never Tobacco Cessation:Counseling Given: Not Answered Alcohol Use Standard Drinks/Week Comments Yes 0 (1 standard drink = 0.6 oz pur e alcohol) Comments Unknown Sex and Gender Information Value Date Recorded Sex Assigned at Not on file Legal Sex Female 6:56 PM EDT Gender Identity Not on file Sexual Orientation Not on file documented as of this encounter Plan of Treatment Upcoming Encounters Date Type Department Care Team ([facility] Contact Info) Description 04/14/2025 11:45 AM EDT [facility] [address] [place] [address] Viral Loving MD [address] [place] [address] documented as of this encounter Visit Diagnoses Not on filedocumented in this encounter Care Teams Section Plotter Operator Relationship Specialty Start Date End Date Viral Loving MD PCP - General Family Medicine 03/18/23 10/14/23 Viral Loving MD [address] [place] [address] PCP - General Family Medicine 10/15/23 Shaikh Garcia MD [address] [place] [address] PCP - [place] [employer] 04/14/2408/13 Viral Loving MD [address] [place] [address] PCP - [place] [employer] 08/14/24 documented as of this encounter
--- OUTSIDE RECORDS SUMMARY | 2025-04-11 15:44 | XMS_ITS | Encounter Summary ---
Author Organization [facility] Address [address] [place] [address] Care Team Providers Care Barn Worker Name Role Phone Viral Loving MD Primary Care Provider Viral Loving MD Primary Care Provider Shaikh JAIR Garcia Unavailable [phone] Viral Loving MD Unavailable Encounter Details Date Type Department Care Team (Late Contact Info) Description 05/08/2023 Abstract [facility] [address] [place] [address] Lien Collier NP Social History Tobacco Use Types Packs/Day Years Used Date Smoking Tobacco: Never Smokeless Tobacco: Never Tobacco Cessation:Counseling Given: Not Answered Alcohol Use Standard Drinks/Week Comments Never 0 [...] Upcoming Encounters Date Type Department Care Team ([facility] Contact Info) Description 04/14/2025 11:45 AM EDT [facility] [address] [place] [address] Viral Loving MD [address] [place] [address] documented as of this encounter Visit Diagnoses Not on filedocumented in this encounter Care Teams Barn Worker Relationship Specialty Start Date End Date Viral Loving MD PCP - General Family Medicine 03/18/23 10/14/23 Viral Loving MD [address] [place] [address] PCP - General Family Medicine 10/15/23 Shaikh Garcia MD [address] [place] [address] PCP - [place] [employer] 04/14/2408/13 Viral Loving MD [address] [place] [address] PCP - [place] [employer] 08/14/24 documented as of this encounter
--- OUTSIDE RECORDS SUMMARY | 2025-04-11 15:44 | XMS_ITS | Clinical Summary ---
Author Organization [facility] Address [address] [place] [address] Care Team Providers Care Office Machine Service Supervisor Name Role Phone Viral Loving MD Primary Care Provider [phone] Allergies Active Allergy Reactions Criticality Noted Date Comments Doxycycline Vomiting Medium 11/16/2017 Phenergan [place] Other: See Comments 07/23/2012 seizures Sulfa Dyne Hives,GI Upset 07/23/2012 Medications topiramate (TOPAMAX) 25 mg tabletIndicatio ns:Dizziness and giddiness,Heada delbert(784.0),Palp itations Take 1 tablet by mouth daily at bedtime. for 1 week then increase to twice a day 60 tablet 3 07/23/2012 Active Active Problems Problem Noted Date Diagnosed Date Sebaceous cyst 11/24/2017 Irritation, nose 11/24/2017 Epistaxis 11/24/2017 Social History Tobacco Use Types Packs/Day Years Used Date Smoking Tobacco: Never Smokeless Tobacco: Never Tobacco Cessation:Counseling Given: No Alcohol Use Standard Drinks/Week Comments No 0 (1 standard drink = 0.6 oz pur e alcohol) Area Deprivation Index Answer Date Deshaun rded National Score (1-100), lower number is lower ri sk Not on file 08/22/2020 State Score (1-10), lower number is lower risk N ot on file 08/22/2020 Data from: https://www.neighborhoodatlas.medicine.[facility].edu/. Last address used for calculation Not on file 08/22/2020 Comments No Sex and Gender Information Value Date Recorded Sex Assigned at Not on file Legal Sex Female 10:18 AM EST Gender Identity Not on file Sexual Orientation Not on file Last Filed Vital Signs Vital Sign Reading Time Taken Comments Blood Pressure - - Pulse - - Temperature - - Respiratory Rate - - Oxygen Saturation 100% 07/23/2012 8:01 AM EST Inhaled Oxygen Concentration - - Weight 85.3 kg (188 lb 1.6 oz) 07/23/2012 8:01 A M EST Height 160 cm (5' 3 ) 07/23/2012 8:01 AM EST Body Mass Index 33.32 07/23/2012 8:01 AM EST Plan of Treatment Health Maintenance Due Date Last Done Comments Anxiety Screening 1995 Depression Screening 1995 HIV Screening 1995 Hepatitis C Screening 1995 DTaP,Tdap,Td Vaccine (1 - Tdap) 1996 Hepatitis B Vaccine (1 of 3 - 19+ 3-dose series) 11/03 Cervical Cancer Screening [address] Colonography 2022 Cologuard (FIT-DNA) 2022 Colonoscopy 2022 Colorectal Cancer Screening 2022 Diabetes Screening 2022 07/23/2012 Fecal Occult Blood 2022 Lipid Screening 2022 Sigmoidoscopy 2022 Influenza Vaccine (#1) 2025 Procedures Procedure Name Priority Date/Time Associated Diagnosis Comments COMPREHENSIVE METABOLIC PANEL 07/23/2012 9:50 AM EST from Last 3 Months or Most Recently Relevant to Health Maintenance Results * (ABNORMAL) COMP METABOLIC PANEL (07/23/2012 9:50 AM EST) Protein, Total 6.8 6.0 - 8.4 g/dL [facility] Albumin 4.6 3.5 - 5.0 g/dL [facility] Calcium 9.3 8.5 - 10.5 mg/dL [facility] Bilirubin, Total 0.5 0.0 - 1.5 mg/dL [facility] Alkaline Phosphatase 74 40 - 150 U/L [facility] AST 15 7 - 40 U/L [facility] Glucose 89 65 - 100 mg/dL [facility] BUN 8 8 - 25 mg/dL [facility] Creatinine 0.63(L) 0.70 - 1.40 mg/dL [facility] Sodium 139 132 - 148 mmol/L [facility] Potassium 4.0 3.5 - 5.0 mmol/L [facility] Chloride 105 98 - 110 mmol/L [facility] CO2 25 23 - 32 mmol/L [facility] Anion Gap 13 10 - 20 mmol/L [facility] ALT 11 0 - 45 U/L [facility] eGFR, >60 [facility] eGFR-All Other Races >60 . [facility] 07/23/2012 9:50 AM EST 07/23/2012 9:52 AM EST us Juliette Tanase [facility] Edited [facility] [address] [place] [address] from Last 3 Months or Most Recently Relevant to Health Maintenance Insurance [facility] PPO Care Teams Office Machine Service Supervisor Relationship Specialty Start Date End Date Viral Loving MD PCP - General Family Medicine 02/08/14
--- OUTSIDE RECORDS SUMMARY | 2025-04-11 15:44 | XMS_ITS | Encounter Summary ---
Author Organization [facility] Address [address] [place] [address] Care Team Providers Care Driver Utility Worker Name Role Phone Viral Loving MD Primary Care Provider [phone] Reason for Visit * Reason Comments Med Refill Encounter Details Date Type Department Care Team (Late Contact Info) Description 04/09/2025 Refill [facility] [address] [place] [address] Viral Loving MD [address] [place] [phone] Acute vaginitis Social History Tobacco Use Types Packs/Day Years [...] encounter Miscellaneous Notes * Telephone Encounter - GIACOMO COLON - 04/10/2025 9:46 AM EDT MEDICATION SENT TO [facility] documented in this encounter Plan of Treatment Upcoming Encounters Date Type Department Care Team (Late st Contact Info) Description 04/14/2025 11:45 AM EDT Office Visit [facility] [address] [address] Viral Loving MD [address] [place] [address] documented as of this encounter Visit Diagnoses Diagnosis Acute vaginitis Unspecified vaginitis and vulvovaginitis documented in this encounter Care Teams Driver Utility Worker Relationship Specialty Start Date End Date Viral Loving MD [address] [place] [phone] PCP - General Family Medicine 10/15/23 documented as of this encounter
--- OUTSIDE RECORDS SUMMARY | 2025-04-11 15:44 | XMS_ITS | Encounter Summary ---
Author Organization [facility] Address [address] [place] [address] Care Team Providers Care Group Leader Semiconductor Processing Name Role Phone Viral Loving MD Primary Care Provider [phone] Encounter Details Date Type Department Care Team ([facility] Contact Info) Description 04/05/2025 Bamboo flowsheet [facility] [address] [address] Maclolm Otto PA [address] [place] [address] Social History Tobacco Use Types Packs/Day Years [...] Upcoming Encounters Date Type Department Care Team ([facility] Contact Info) Description 04/14/2025 11:45 AM EDT [facility] [address] [place] [address] Viral Loving MD [address] [place] [address] documented as of this encounter Visit Diagnoses Not on filedocumented in this encounter Care Teams Group Leader Semiconductor Processing Relationship Specialty Start Date End Date Viral Loving MD [address] [place] [address] PCP - General Family Medicine 10/15/23 documented as of this encounter
--- OUTSIDE RECORDS SUMMARY | 2025-04-11 15:44 | XMS_ITS | Encounter Summary ---
Author Organization [facility] Address [address] [place] [address] Care Team Providers Care Circulation Representative Name Role Phone Viral Loving MD Primary Care Provider Viral Loving MD Primary Care Provider Shaikh JAIR Garcia Unavailable [phone] Viral Loving MD Unavailable Reason for Referral * Imaging (Routine) - Closed Specialty Diagnoses / Procedures Referred By Jeff cortez Referred To Contact Radiology Diagnoses Internal derangement of right knee Procedures MR knee right wo IV contrast Lien Collier NP fax: [facility] [address] [place] [address] Phone: tel: fax: Referral ID Status Reason Start Date Expiration Date Visits Re quested Visits Authorized [id number] Closed 07/07/2023 01/03/2024 1 1 Encounter Details Date Type Department Care Team (Late st Contact Info) Description 07/07/2023 Orders Only [facility] [address] [place] [address] Nga Escalera ARRT Internal derangement of right knee Social History Tobacco Use Types Packs/Day Years [...] Office Visit [facility] [address] [place] [address] Viral Loving MD [address] [place] [address] Scheduled Orders Name Type Priority Associated Diagnoses Orde r Schedule MR knee right wo IV contrast Imaging Routine Internal derangement of right knee Expected: 07/07/2023 (Approximate), Expires: 07/07/2024 documented as of this encounter Visit Diagnoses Diagnosis Internal derangement of right knee documented in this encounter Care Teams Circulation Representative Relationship Specialty Start Date End Date Viral Loving MD PCP - General Family Medicine 03/18/23 10/14/23 Viral Loving MD [address] [place] [address] PCP - General Family Medicine 10/15/23 Shaikh Garcai MD [address] [place] [address] PCP - [place] [employer] 04/14/2408/13 Viral Loving MD [address] [place] [address] PCP - [place] [employer] 08/14/24 documented as of this encounter
--- OUTSIDE RECORDS SUMMARY | 2025-04-11 15:44 | XMS_ITS | Clinical Summary ---
Author Organization [facility] Address [address] [place] [address] Care Team Providers Care Assistant Distribution Manager Name Role Phone Viral Loving MD Primary Care Provider [phone] Allergies Active Allergy Reactions Criticality Noted Date Comments Clindamycin GI intolerance High 01/16/2025 Doxycycline GI intolerance Low 04/07/2023 Promethazine Seizures Medium 04/07/2023 Medications omeprazole (PriLOSEC) [address] capsuleIndication s:Eosinophilic esophagitis due to food TAKE 1 CAPSULE BY MOUTH EVERY DAY 90 capsule 3 07/06/20 24 Active metroNIDAZOLE (Flagyl) 500 MG tabletIndications :Acute vaginitis TAKE 1 TABLET BY MOUTH EVERY 12 HOURS FOR 7 DAYS 14 tablet 04/10/20 25 025 Active fexofenadine (Simona) 180 MG tabletIndications :Chronic rhinosinusitis Take 1 tablet (180 mg) by mouth Daily as needed (allergies) 30 tablet 5 09/15/19 25 025 Discontinued(T herapy completed) metroNIDAZOLE (Flagyl) 500 MG tabletIndications :Acute vaginitis TAKE 1 TABLET BY MOUTH EVERY 12 HOURS FOR 7 DAYS 14 tablet 12/23/19 25 025 Discontinued azithromycin (Zithromax Z-German) 250 MG tabletIndications :Dysuria Take 2 tablets (500 mg) on Day 1, followed by 1 tablet (250 mg) once daily on Days 2 through 5. 6 tablet 01/31/20 25 025 Discontinued(T herapy completed) Hospital, Clinic, or Other Facility Administered Medication Ordered Dose Route Frequency Start Date End Date Status bupivacaine PF (Marcaine) 0.5 % injection 1 mLIndications:Chondr omalacia, patella, left 1 mL IJ Once PRN Procedure 04/05/2025 04/05/2025 Ended methylPREDNISolone acetate (DEPO-Medrol) injection 40 mgIndications:Chondr omalacia, patella, left 40 mg IX Once PRN Procedure 04/05/2025 04/05/2025 Ended Active Problems Problem Noted Date Diagnosed Date Arthralgia 04/06/2025 ADD (attention deficit disorder) without hyperac tivity 11/22/2024 Nonalcoholic fatty liver disease 09/15/2024 Assessment & Plan (09/15/2024 2:33 PM EST): Follow with GI. Duodenal ulcer 09/15/2024 Assessment & Plan (09/15/2024 2:33 PM EST): Continue medication and follow with GI. Chronic rhinosinusitis 09/15/2024 Assessment & Plan (09/15/2024 2:32 PM EST): Continued symptoms and treat with augmentin. Start simona. Annual physical exam 03/22/2024 Assessment & Plan (03/22/2024 3:20 PM EDT): Reviewed labs. Discussed proper diet and regular aerobic exercise. Need aerobic exercise 5-6 days a week for 30 minutes at a time. Smaller portions and limit total calories. Never had colon cancer screening and willing to have cologuard. Tetanus every 10 years. Advised not to smoke. Discussed daily Aspirin therapy. Migraine without aura and wi thout status migrainosus, not intractable 03/01/2024 Plantar fasciitis 02/23/2024 Gastrocnemius equinus of right lower extremity 0 02/23/2024 Bilateral lower extremity edema 10/15/2023 Assessment & Plan (10/15/2023 5:12 PM EST): Bilateral LE edema, intermittent, worse towards the [...] stockings for conservative/symptomatic treatment for her symptoms. Screening for hyperlipidemia 10/15/2023 Assessment & Plan (10/15/2023 5:12 PM EST): Screen for HLD. Screening for diabetes mellitus 10/15/2023 Assessment & Plan (10/15/2023 5:13 PM EST): Screen for T2 DM. Autoimmune hepatitis treated with steroids 10/15 Assessment & Plan (10/15/2023 5:10 PM EST): No recent flare up. Requires prednisone for flare ups. Class 2 obesity due to exces s calories without serious comorbidity with body mass index (BMI) of 37.0 to 37.9 in adult 08/31/2023 Assessment & Plan (09/15/2024 2:34 PM EST): Weight loss indicated Allergic rhinitis caused by mold 04/07/2023 Disequilibrium 04/07/2023 Eosinophilic esophagitis due to food 04/07/2023 Visual disturbance 04/07/2023 Resolved Problems Problem Noted Date Diagnosed Date Resolved Date Acute migraine 03/02/2024 03/22/2024 Assessment & Plan (03/02/2024 3:26 PM EDT): Here with acute migraine HALL - ongoing for 3 days. Associated aura, no improvement with motrin/tylenol. She usually gets IM toradol when oral medications don't work - and it usually works well for her. She has previously used Imitrex and she can't use it because of adverse effects (delvis her neck was tightening up on it) She usually get 3-4 migraine HALL/day - does not meet criteria for migraine px. I will call in oral rizatriptan as needed for her. If she fails to respond to oral rizaptriptan - she will be good candidate for nurtec or ubrelvy. For today - we will order IM toradol 60 mg x 1 for her. Pharyngitis 08/31/2023 09/15/2024 Assessment & Plan (09/03/2023 9:03 AM EST): Will hold on steroids or atb We will order [facility] and go from there Differentials; laryngeal reflux, or GERD does have hx of GERD but not acute symptoms at this time 09/03/23: [facility] is back, +stept pneumonia, will prescribe Amoxicillin for this Fullness in head 04/07/2023 03/02/2024 Unilateral primary osteoarthritis, right knee 04/07/2003/02/2024 Vaginal burning 04/07/2023 03/02/2024 Encounters Date Type Department Care Team Description 04/09/2025 Refill [facility] [address] [place] [phone] Viral Loving MD Acute vaginitis 04/06/2025 Telephone [facility] [address] [place] [phone] Viarl Loving MD 04/05/2025 2:45 PM EDT Office Visit [facility] [address] [place] [address] Malcolm Otto PA Acute pain of left knee (Primary Dx); Chondromalacia, patella, left 04/05/2025 Bamboo flowsheet [facility] [address] [place] [address] Malcolm Otto PA 04/05/2025 Travel 03/15/20[facility] [address] [place] [address] Viral Loving MD Med Refill 03/13/2025 11:15 AM EDT Office Visit [facility] [place] [facility] [address] [place] [phone] Malcolm Otto PA Acute pain of left knee (Primary Dx); Contusion of left knee and lower leg, initial encounter; Abrasion of left knee, initial encounter 03/13/2025 Abstract [facility] [address] [place] [phone] Viral Loving MD 03/13/2025 Travel 03/13/2025 Orders Only [facility] [place] [facility] [address] [place] [phone] Unallocated, Aj Persaud MD 02/20/2025 Orders Only [facility] [address] [place] [phone] Viral Loving MD 01/31/2025 Results Follow-Up [facility] [place] [facility] [address] [place] [phone] Christin Rowe NP 01/31/2025 Telephone [facility] [address] [place] [address] Christin Rowe, REPAIRER EVAPORATOR 01/31/2025 Telephone [facility] [address] [place] [phone] Viral Loving MD Lab Orders 01/30/2025 10:25 AM EDT Office Visit [facility] [facility] [address] [place] [phone] Christin Rowe, REPAIRER EVAPORATOR Vaginal burning (Primary Dx); Dysuria 01/30/2025 Telephone [facility] [place] [facility] [address] [place] [address] Christin Rowe NP 01/30/2025 Travel 01/18/2025 Telephone [facility] [address] [place] [phone] Viral Loving MD Med Refill 01/18/2025 Telephone [facility] [place] [facility] [address] [place] [address] Mabel Hernandez PA 01/17/2025 Telephone [facility] [place] [facility] [address] [place] [phone] Bren Beltran MA 01/16/2025 4:10 PM EDT Office Visit [facility] [place] [facility] [address] [place] [address] Rebecca Denney, DAYSI Dysuria (Primary Dx) 01/16/2025 Travel from Last 3 Months Immunizations Immunization Administration Dates Next Due DTaP 05/05/1983, 9,07/14/1978,1977,02/26/1978 IPV 05/05/1983, 9,07/14/1978,1977,02/26/1978 Influenza, injectable, MDCK, preservative free, quadrivalent 04/24/2023 MMR 04/15/1979 Tdap 03/09/2023 Family History Medical History Relation Name Comments Cancer Father Depression Father Diabetes Father Heart disease Father Hyperlipidemia Father Hypertension Father Stroke Father stomach trouble Father Depression Mother Fibromyalgia Mother Lung disease Mother Relation Name Status Comments Daughter Alive Father Alive Mother Alive Social History Tobacco Use Types Packs/Day Years Used Date Smoking Tobacco: Never Passive Smoke Exposure: Never Smokeless Tobacco: Never Tobacco Cessation:Counseling Given: No Alcohol Use Standard Drinks/Week Comments Never 0 [...] Sign Reading Time Taken Comments Blood Pressure 122/88 01/30/2025 10:36 AM EDT Pulse 88 01/30/2025 10:36 AM EDT Temperature 37.1 C (98.7 F) 01/30/2025 10:36 AM EDT Respiratory Rate 20 01/16/2025 4:21 PM EDT Oxygen Saturation 99% 01/30/2025 10:36 AM EDT Inhaled Oxygen Concentration - - Weight 93 kg (205 lb) 01/30/2025 10:36 AM EDT Height 160 cm (5' 3 ) 09/15/2024 1:57 PM EST Body Mass Index 36.31 09/15/2024 1:57 PM EST Plan of Treatment Upcoming Encounters Date Type Department Care Team (Late st Contact Info) Description 04/14/2025 11:45 AM EDT Office Visit [facility] [address] [place] [address] Viral Loving MD [address] [place] [address] Health Maintenance Due Date Last Done Comments CT Colonography 1977 Colonoscopy 1977 FIT 1977 FOBT 1977 Sigmoidoscopy 1977 Pap Smear 1998 Cervical Cancer Screening 2007 HPV/Cotest 2007 Influenza Vaccine (#1) 2025 05/27/2024, 2022 Mammogram 02/20/2026 02/20/2025, 01/18/2024, 050 10/2022 Colorectal Cancer Screening 04/17/2027 FIT-DNA 04/17/2027 04/17/2024 Procedures Procedure Name Priority Date/Time Associated Diagnosis Comments [place] ARTHROCENTESIS ASPIR&/INJ MAJOR JT/BURSA W/O US Routine 04/05/2025 3:16 PM EDT Chondromalacia, patella, left XR KNEE 3 VIEWS LEFT Routine 03/13/2025 9:38 AM EDT BI MAMMOGRAM SCREENING TOMOSYNTHESIS BILATERAL Routine 02/20/2025 4:32 PM EDT POCT CEPHEID MVP Routine 01/30/2025 1:02 PM EDT Dysuria COMPLICATED GENITOURINARY INFECTION (HTRX) Routine 01/30/2025 11:37 AM EDT Dysuria URINALYSIS ANALYZER TEST Routine 01/30/2025 11:01 AM EDT Dysuria URETHRITIS/DISCHARGE (HTRX) Routine 01/16/2025 5:12 PM EDT Dysuria URINALYSIS ANALYZER TEST Routine 01/16/2025 4:33 PM EDT Dysuria LAB COLOGUARD COLON CANCER SCREEN Routine 04/17/2024 6:15 PM EDT Colon cancer screening from Last 3 Months or Most Recently Relevant to Health Maintenance Results * [place] ARTHROCENTESIS ASPIR&/INJ MAJOR JT/BURSA W/O US (04/05/2025 [...] and draped in the usual sterile fashion. Malcolm DEE IN CLINIC/BEDSIDE ORDERABLES Final Result * XR knee 3 views left (03/13/2025 9:38 AM EDT) Anatomical Region Laterality Modality Lower Extremities, Knee Left Radiogra phic Imaging [facility] Provider Unallocated IMBunny XR PROCEDURES F inal Result * Bilateral screening mammogram with tomosynthesis (02/20/2025 4:32 PM EDT) Anatomical Region Laterality Modality Breast Bilateral Mammography Viral Loving MD IMG BI PROCEDURES Final Result * COMPLICATED GENITOURINARY INFECTION (HTRX) (01/30/2025 11:37 AM EDT) ACINETOBACTER BAUMANII 0.000 19.961 - 24.689 ppm 01/31/2025 8:05 AM EDT [facility] ACINETOBACTER BAUMANII Not Detected 19.961 - 24.689 ppm 01/31/2025 8:05 AM EDT [facility] ATOPOBIUM VAGINAE 0.000 19.961 - 24.689 ppm 01/31/2025 8:05 AM EDT [facility] ATOPOBIUM VAGINAE Not Detected 19.961 - 24.689 ppm 01/31/2025 8:05 AM EDT [facility] BVAB 2,3 (BACTERIAL VAGINOSIS ASSOCIATED BACTERIA 2, 3); MOBILUNCUS SPP 0.000 19.961 - 24.689 ppm 01/31/2025 8:05 AM EDT [facility] BVAB 2,3 (BACTERIAL VAGINOSIS ASSOCIATED BACTERIA 2, 3); MOBILUNCUS SPP Not Detected 19.961 - 24.689 ppm 01/31/2025 8:05 AM EDT [facility] ESTHELA ALBICANS, PARAPSILOSIS, TROPICALIS 0.000 19.961 - 30.770 ppm 01/31/2025 8:05 AM EDT [facility] ESTHELA ALBICANS, PARAPSILOSIS, TROPICALIS Not Detected 19.961 - 30.770 ppm 01/31/2025 8:05 AM EDT [facility] ESTHELA GLABRATA 0.000 23.000 - 32.138 ppm 01/31/2025 8:05 AM EDT [facility] ESTHELA GLABRATA Not Detected 23.000 - 32.138 ppm 01/31/2025 8:05 AM EDT [facility] ESTHELA KRUSEI 0.000 23.000 - 32.271 ppm 01/31/2025 8:05 AM EDT [facility] ESTHELA KRUSEI Not Detected 23.000 - 32.271 ppm 01/31/2025 8:05 AM EDT [facility] CHLAMYDIA TRACHOMATIS 0.000 23.000 - 31.467 ppm 01/31/2025 8:05 AM EDT [facility] CHLAMYDIA TRACHOMATIS Not Detected 23.000 - 31.467 ppm 01/31/2025 8:05 AM EDT [facility] CITROBACTER FREUNDII 0.000 23.000 - 31.881 ppm 01/31/2025 8:05 AM EDT [facility] CITROBACTER FREUNDII Not Detected 23.000 - 31.881 ppm 01/31/2025 8:05 AM EDT [facility] ENTEROBACTER AEROGENES, CLOACAE 0.000 23.000 - 31.535 ppm 01/31/2025 8:05 AM EDT [facility] ENTEROBACTER AEROGENES, CLOACAE Not Detected 23.000 - 31.535 ppm 01/31/2025 8:05 AM EDT [facility] ENTEROCOCCUS FAECALIS, FAECIUM 0.000 26.000 - 31.575 ppm 01/31/2025 8:05 AM EDT [facility] ENTEROCOCCUS FAECALIS, FAECIUM Not Detected 26.000 - 31.575 ppm 01/31/2025 8:05 AM EDT [facility] ESCHERICHIA COLI 0.000 23.000 - 28.500 ppm 01/31/2025 8:05 AM EDT [facility] ESCHERICHIA COLI Not Detected 23.000 - 28.500 ppm 01/31/2025 8:05 AM EDT [facility] GARDNERELLA VAGINALIS 0.000 19.961 - 24.689 ppm 01/31/2025 8:05 AM EDT [facility] GARDNERELLA VAGINALIS Not Detected 19.961 - 24.689 ppm 01/31/2025 8:05 AM EDT [facility] KLEBSIELLA PNEUMONIAE, OXYTOCA 0.000 23.000 - 30.500 ppm 01/31/2025 8:05 AM EDT [facility] KLEBSIELLA PNEUMONIAE, OXYTOCA Not Detected 23.000 - 30.500 ppm 01/31/2025 8:05 AM EDT [facility] MEGASPHAERA (TYPES 1, 2) 0.000 19.961 - 24.689 ppm 01/31/2025 8:05 AM EDT [facility] MEGASPHAERA (TYPES 1, 2) Not Detected 19.961 - 24.689 ppm 01/31/2025 8:05 AM EDT [facility] MORGANELLA MORGANII 0.000 19.961 - 24.689 ppm 01/31/2025 8:05 AM EDT [facility] MORGANELLA MORGANII Not Detected 19.961 - 24.689 ppm 01/31/2025 8:05 AM EDT [facility] NEISSERIA GONORRHOEAE 0.000 23.000 - 32.117 ppm 01/31/2025 8:05 AM EDT [facility] NEISSERIA GONORRHOEAE Not Detected 23.000 - 32.117 ppm 01/31/2025 8:05 AM EDT [facility] PROTEUS MIRABILIS, VULGARIS 0.000 23.000 - 28.500 ppm 01/31/2025 8:05 AM EDT [facility] PROTEUS MIRABILIS, VULGARIS Not Detected 23.000 - 28.500 ppm 01/31/2025 8:05 AM EDT [facility] PSEUDOMONAS AERUGINOSA 0.000 23.000 - 28.500 ppm 01/31/2025 8:05 AM EDT [facility] PSEUDOMONAS AERUGINOSA Not Detected 23.000 - 28.500 ppm 01/31/2025 8:05 AM EDT [facility] SERRATIA MARCESCENS 0.000 23.000 - 31.204 ppm 01/31/2025 8:05 AM EDT [facility] SERRATIA MARCESCENS Not Detected 23.000 - 31.204 ppm 01/31/2025 8:05 AM EDT [facility] STAPHYLOCOCCUS AUREUS 0.000 26.000 - 30.902 ppm 01/31/2025 8:05 AM EDT [facility] STAPHYLOCOCCUS AUREUS Not Detected 26.000 - 30.902 ppm 01/31/2025 8:05 AM EDT [facility] STREPTOCOCCUS AGALACTIAE (GROUP B STREP) 0.000 26.000 - 32.222 ppm 01/31/2025 8:05 AM EDT [facility] STREPTOCOCCUS AGALACTIAE (GROUP B STREP) Not Detected 26.000 - 32.222 ppm 01/31/2025 8:05 AM EDT [facility] STREPTOCOCCUS PYOGENES (GROUP A STREP) 0.000 19.961 - 24.689 ppm 01/31/2025 8:05 AM EDT [facility] STREPTOCOCCUS PYOGENES (GROUP A STREP) Not Detected 19.961 - 24.689 ppm 01/31/2025 8:05 AM EDT [facility] TRICHOMONAS VAGINALIS 0.000 23.000 - 32.119 ppm 01/31/2025 8:05 AM EDT [facility] TRICHOMONAS VAGINALIS Not Detected 23.000 - 32.119 ppm 01/31/2025 8:05 AM EDT [facility] STAPHYLOCOCCUS EPIDERMIDIS, HAEMOLYTICUS, LUGDUNENSIS 0.000 19.961 - 24.689 ppm 01/31/2025 8:05 AM EDT [facility] STAPHYLOCOCCUS EPIDERMIDIS, HAEMOLYTICUS, LUGDUNENSIS Not Detected 19.961 - 24.689 ppm 01/31/2025 8:05 AM EDT [facility] STAPHYLOCOCCUS SAPROPHYTICUS 0.000 19.961 - 24.689 ppm 01/31/2025 8:05 AM EDT [facility] STAPHYLOCOCCUS SAPROPHYTICUS Not Detected 19.961 - 24.689 ppm 01/31/2025 8:05 AM EDT [facility] MYCOPLASMA GENITALIUM 0.000 19.961 - 24.689 ppm 01/31/2025 8:05 AM EDT [facility] MYCOPLASMA GENITALIUM Not Detected 19.961 - 24.689 ppm 01/31/2025 8:05 AM EDT [facility] MYCOPLASMA HOMINIS 0.000 19.961 - 24.689 ppm 01/31/2025 8:05 AM EDT [facility] MYCOPLASMA HOMINIS Not Detected 19.961 - 24.689 ppm 01/31/2025 8:05 AM EDT [facility] UREAPLASMA PARVUM 0.000 19.961 - 24.689 ppm 01/31/2025 8:05 AM EDT [facility] UREAPLASMA PARVUM Not Detected 19.961 - 24.689 ppm 01/31/2025 8:05 AM EDT [facility] UREAPLASMA UREALYTICUM 0.000 19.961 - 24.689 ppm 01/31/2025 8:05 AM EDT [facility] UREAPLASMA UREALYTICUM Not Detected 19.961 - 24.689 ppm 01/31/2025 8:05 AM EDT [facility] Genital 01/30/2025 11:3 7 AM EDT 01/31/2025 2:21 AM EDT Christin Rowe REPAIRER EVAPORATOR LAB BLOOD ORDERABLES Final Result [facility] [address] [place] [address] * URINALYSIS ANALYZER TEST (01/30/2025 11:01 AM EDT) Only the most recent of2 resultswithin the time period is included. LEUKOCYTES negative Negative NITRITES negative Negative UROBILINOGEN negative 0.2 - 1.0 PROTEIN negative Negative PH 6.0 5.0 - 6.0 BLOOD negative Negative SPECIFIC GRAVITY 1.005 1.001 - 1.035 KETONES negative Negative BILIRUBIN negative Negative GLUCOSE negative Negative Urine 01/30/2025 11:0 1 AM EDT Aramis Goodson DO POINT OF CARE TEST ENTER/ED IT ORDERABLES Final Result * (ABNORMAL) URETHRITIS/DISCHARGE (HTRX) (01/16/2025 5:12 PM EDT) CHLAMYDIA TRACHOMATIS (URETHRITIS/DIS CHARGE) 0.000 23.000 - 31.467 ppm 01/18/2025 7:27 AM EDT [facility] CHLAMYDIA TRACHOMATIS (URETHRITIS/DIS CHARGE) Not Detected 23.000 - 31.467 ppm 01/18/2025 7:27 AM EDT [facility] HERPES SIMPLEX VIRUS 1 (URETHRITIS/DIS CHARGE) 0.000 23.000 - 32.355 ppm 01/18/2025 7:27 AM EDT [facility] HERPES SIMPLEX VIRUS 1 (URETHRITIS/DIS CHARGE) Not Detected 23.000 - 32.355 ppm 01/18/2025 7:27 AM EDT [facility] HERPES SIMPLEX VIRUS 2 (URETHRITIS/DIS CHARGE) 0.000 23.000 - 31.433 ppm 01/18/2025 7:27 AM EDT [facility] HERPES SIMPLEX VIRUS 2 (URETHRITIS/DIS CHARGE) Not Detected 23.000 - 31.433 ppm 01/18/2025 7:27 AM EDT [facility] NEISSERIA GONORRHOEAE (URETHRITIS/DIS HCARGE) 0.000 23.000 - 32.117 ppm 01/18/2025 7:27 AM EDT [facility] NEISSERIA GONORRHOEAE (URETHRITIS/DIS HCARGE) Not Detected 23.000 - 32.117 ppm 01/18/2025 7:27 AM EDT [facility] TRICHOMONAS VAGINALIS (URETHRITIS/DIS CHARGE) 0.000 23.000 - 32.119 ppm 01/18/2025 7:27 AM EDT [facility] TRICHOMONAS VAGINALIS (URETHRITIS/DIS CHARGE) Not Detected 23.000 - 32.119 ppm 01/18/2025 7:27 AM EDT [facility] MYCOPLASMA GENITALIUM (URETHRITIS/DIS CHARGE) 0.000 19.961 - 24.689 ppm 01/18/2025 7:27 AM EDT [facility] MYCOPLASMA GENITALIUM (URETHRITIS/DIS CHARGE) Not Detected 19.961 - 24.689 ppm 01/18/2025 7:27 AM EDT [facility] MYCOPLASMA HOMINIS (URETHRITIS/DIS CHARGE) 0.000 19.961 - 24.689 ppm 01/18/2025 7:27 AM EDT [facility] MYCOPLASMA HOMINIS (URETHRITIS/DIS CHARGE) Not Detected 19.961 - 24.689 ppm 01/18/2025 7:27 AM EDT [facility] UREAPLASMA UREALYTICUM (URETHRITIS/DIS CHARGE) 0.000 19.961 - 24.689 ppm 01/18/2025 7:27 AM EDT [facility] UREAPLASMA UREALYTICUM (URETHRITIS/DIS CHARGE) Not Detected 19.961 - 24.689 ppm 01/18/2025 7:27 AM EDT [facility] UREAPLASMA PARVUM (URETHRITIS/DIS CHARGE) 29.574(A) 19.961 - 24.689 ppm 01/18/2025 7:27 AM EDT [facility] UREAPLASMA PARVUM (URETHRITIS/DIS CHARGE) Detected(A) 19.961 - 24.689 ppm 01/18/2025 7:27 AM EDT [facility] 01/16/2025 5:12 PM EDT 01/18/2025 1:19 AM EDT us Rebecca Denney REPAIRER EVAPORATOR LAB BLOOD ORDERABLES Final R esult [facility] [address] [place] [address] * Cologuard?? colon cancer screening (04/17/2024 6:15 PM EDT) NONINV COLON CA DNA+OCC BLD SCRN STL-IMP Negative Negative 04/22/2024 2:00 AM EDT [facility] (CLIA #:[id number]) Comment: NEGATIVE TEST RESULT. A negative Cologuard result indicates a low likelihood that a colorectal cancer (CRC) or advanced adenoma (adenomatous polyps with more advanced pre-malignant features) is present. The chance that a person with a negative Cologuard test has a colorectal cancer is less than 1 in 1500 (negative predictive value >99.9%) or has an advanced adenoma is less than 5.3% (negative predictive value 94.7%). These data are based on a prospective cross-sectional study of 10,000 individuals at average risk for colorectal cancer who were screened with both Cologuard and colonoscopy. (Jaz Sanchez al, N Engl J Med 2014;370(14):7044-1486) The normal value (reference range) for this assay is negative. COLOGUARD RE-SCREENING RECOMMENDATION: Periodic colorectal cancer screening is an important part of preventive healthcare for asymptomatic individuals at average risk for colorectal cancer. Following a negative Cologuard result, the [place] [employer] and U.S. Multi-Society Task Force screening guidelines recommend a Cologuard re-screening interval of 3 years. References: [place] [employer] Guideline for Colorectal Cancer Screening: https://www.cancer.org/cancer/idktf-wzkxgg-qbruyt/woeivdtzz-dremzatuf-pdarugi/ac s-rec ommendations.html.; Caio DK, Krystyna HAMMER, Mitzi NortonK, Colorectal Cancer Screening: Recommendations for Physicians and Patients from the U.S. Multi-Society Task Force on Colorectal Cancer Screening , Am J Gastroenterology 2017; 112:2735-9800. TEST DESCRIPTION: Composite algorithmic analysis of stool DNA-biomarkers with hemoglobin immunoassay. Quantitative values of individual biomarkers are not reportable and are not associated with individual biomarker result reference ranges. Cologuard is intended for colorectal cancer screening of adults of either sex, 45 years or older, who are at average-risk for colorectal cancer (CRC). Cologuard has been approved for use by the U.S. FDA. The performance of Cologuard was established in a cross sectional study of average-risk adults aged 50-84. Cologuard performance in patients ages 45 to 49 years was estimated by sub-group analysis of near-age groups. Colonoscopies performed for a positive result may find as the most clinically significant lesion: colorectal cancer [4.0%], advanced adenoma (including sessile serrated polyps greater than or equal to 1cm diameter) [20%] or non- advanced adenoma [31%]; or no colorectal neoplasia [45%]. These estimates are derived from a prospective cross-sectional screening study of 10,000 individuals at average risk for colorectal cancer who were screened with both Cologuard and colonoscopy. (Jaz Sanchez al, N Engl J Med 2014;370(14):8787-1486.) Cologuard may produce a false negative or false positive result (no colorectal cancer or precancerous polyp present at colonoscopy follow up). A negative Cologuard test result does not guarantee the absence of CRC or advanced adenoma (pre-cancer). The current Cologuard screening interval is every 3 years. ([place] [employer] and U.S. Multi-Society Task Force). Cologuard performance data in a 10,000 patient pivotal study using colonoscopy as the reference method can be accessed at the following location: www.ASSIA/results. Additional description of the Cologuard test process, warnings and precautions can be found at [email or web address]udd[employer]™ Interactive. Stool specimen (specimen) 04/17/2024 6:15 PM EDT 04/19/2024 1:38 PM EDT Viral Loving MD LAB MOLECULAR DIAGNOSTICS ORDERA BLES Final Result indeni (CLIA #:[id number]) [address] [place] [address], from Last 3 Months or Most Recently Relevant to Health Maintenance Insurance BS Care Teams Assistant Distribution Manager Relationship Specialty Start Date End Date Viral Loving MD [address] [place] [address] PCP - General Family Medicine 10/15/23
--- OUTSIDE RECORDS SUMMARY | 2025-04-11 15:44 | XMS_ITS | Encounter Summary ---
Author Organization [facility] Address [address] [place] [address] Care Team Providers Care Screw Remover Name Role Phone Viral Loving MD Primary Care Provider [phone] Encounter Details Date Type Department Care Team (Latest Contact Info) Description 04/05/2025 Travel Social History Tobacco Use Types Packs/Day Years [...] 04/14/2025 11:45 AM EDT Office Visit [facility] [address] [place] [address] Viral Loving MD [address] [place] [address] documented as of this encounter Visit Diagnoses Not on filedocumented in this encounter Care Teams Screw Remover Relationship Specialty Start Date End Date Viral Loving MD [address] [place] [address] PCP - General Family Medicine 10/15/23 documented as of this encounter
--- OUTSIDE RECORDS SUMMARY | 2025-04-11 15:44 | XMS_ITS | Clinical Summary ---
Author Organization [facility] Address [id number] [address] [place] [address] Care Team Providers Care Human Factors Specialist Name Role Phone Viral Loving MD Primary Care Provider [phone] Allergies Active Allergy Reactions Criticality Noted Date Comments Doxycycline 11/25/2017 Iodinated Contrast Media 02/07/2017 Promethazine 02/07/2017 Sulfa (Sulfonamide Antibiotics) 01/13 Medications * This document contains information received from the source organization and may not represent a complete record from that organization. No known medications Social History Tobacco Use Types Packs/Day Years Used Date Smoking Tobacco: Never Smokeless Tobacco: Never Alcohol Use Standard Drinks/Week Comments No 0 (1 standard drink = 0.6 oz pur e alcohol) AUDIT-C Answer Date Recorded Frequency of Alcohol Consumption Never 12/09/2018 Average Number of Drinks Not on file 019 Frequency of Binge Drinking Not on file 11/13 Childcare Answer Date Recorded Childcare Unknown 02/23/2019 Employment Answer Date Recorded Employment Unknown 02/23/2019 Purpose - Life Answer Date Recorded Purpose and direction in life Unknown Comments No Sex and Gender Information Value Date Recorded Sex Assigned at Not on file Legal Sex Female 11:32 AM EDT Gender Identity Not on file Sexual Orientation Not on file Last Filed Vital Signs Vital Sign Reading Time Taken Comments Blood Pressure 111/84 02/28/2019 8:04 PM EDT Pulse 101 02/28/2019 8:04 PM EDT Temperature 36.9 C (98.4 F) 02/28/2019 8:04 PM EDT Respiratory Rate 20 02/28/2019 8:04 PM EDT Oxygen Saturation 99% 02/28/2019 8:04 PM EDT Inhaled Oxygen Concentration - - Weight 83 kg (183 lb) 02/28/2019 8:04 PM EDT Height 160 cm (5' 3 ) 02/28/2019 8:04 PM EDT Body Mass Index 32.42 02/28/2019 8:04 PM EDT Plan of Treatment Health Maintenance Due Date Last Done Comments DTaP,Tdap and Td Vaccines (6 - Tdap) 1988 05/05/1983, 06/26/1979, 07/14/1978, Additional history exists Depression Screening 1989 Tobacco Screening 1989 Adult BMI Screening 1995 Influenza Vaccine 05/15/2025 Medical Devices Not on file Insurance ANTH Care Teams Human Factors Specialist Relationship Specialty Start Date End Date Viral Loving MD PCP - General 02/07/17
--- OUTSIDE RECORDS SUMMARY | 2025-04-11 15:44 | XMS_ITS | Encounter Summary ---
Author Organization [facility] Address [address] [place] [address] Care Team Providers Care Molasses Feed Mixer Name Role Phone Viral Loving MD Primary Care Provider Viral Loving MD Primary Care Provider [phone] Shaikh JAIR Garcia Unavailable [phone] Viral Loving MD Unavailable Encounter Details Date Type Department Care Team ([facility] Contact Info) Description 09/14/2023 Abstract [facility] [address] [place] [address] Lilia Bucio, BANKRUPTCY MANAGER [address] [place] [address] Social History Tobacco Use Types Packs/Day Years [...] Upcoming Encounters Date Type Department Care Team ([facility] Contact Info) Description 04/14/2025 11:45 AM EDT Office Visit [facility] [address] [place] [address] Viral Loving MD [address] [place] [address] documented as of this encounter Visit Diagnoses Not on filedocumented in this encounter Care Teams Molasses Feed Mixer Relationship Specialty Start Date End Date Viral Loving MD PCP - General Family Medicine 03/18/23 10/14/23 Viral Loving MD [address] [place] [address] PCP - General Family Medicine 10/15/23 Shaikh Garcia MD [address] [place] [address] PCP - [employer] 04/14/2408/13 Viral Loving MD [address] [place] [address] PCP - [employer] 08/14/24 documented as of this encounter
[2025-04-11 16:08] LABS: Hematocrit 39.0 % (36.0-48.0); Hemoglobin 13.6 g/dL (12.0-16.0); Immature Granulocytes Abs Auto 0.02 10^3/uL (0.00-0.03); Immature Granulocytes Pct Auto 0.3 % (0.0-0.5); Lymphocytes Absolute Auto 2.7 10^3/uL (1.2-3.8); Mean Corpuscular HGB Conc 34.9 g/dL (29.9-35.2); Mean Corpuscular Hemoglobin 30.9 pg (26.7-34.0); Mean Corpuscular Volume 88.6 fL (81.0-99.0); Platelet Count 257 10^3/uL (150-450); Red Blood Count 4.40 10^6/uL (4.20-5.40); White Blood Count 7.7 10^3/uL (4.0-11.0)
[2025-04-11 17:00] LABS: Alanine Aminotransferase 26 U/L (14-59); Albumin Globulin Ratio 1.5; Albumin Level 4.1 g/dL (3.4-5.0); Alkaline Phosphatase 118 U/L (46-116); Anion Gap 10.5; Aspartate Amino Transferase 15 U/L (15-37); Blood Urea Nitrogen 11.0 mg/dL (7.0-18.0); Calcium 9.9 mg/dL (8.5-10.1); Carbon Dioxide 30.3 mmol/L (21.0-32.0); Chloride 104 mmol/L (98-107); Cholesterol 167 mg/dL (<=200); Estimated GFR (African America >60 (>=60 mL/min/1.73m^2); Estimated GFR (Non-African Ame >60 (>=60 mL/min/1.73m^2); Globulin 2.8 g/dL; Glucose 79 mg/dL (74-106); HDL Cholesterol 60 mg/dL (40-60); Potassium 3.8 mmol/L (3.5-5.1); Sodium 141 mmol/L (136-145); TSH W/ REFLEX FT4 3.890 uIU/mL (0.358-3.740); Total Protein 6.9 g/dL (6.4-8.2); Triglycerides 88 mg/dL (<=150); VLDL CHOLESTEROL 17.6 mg/dL
[2025-04-17 08:14] LABS: Antinuclear Antibodies, IFA Negative (.)
== END 2025-04-11 15:42 | disposition home or self-care (01) ==
LOC: LAB 15:41
PROVIDERS: PCP Family Medicine; Visit Provider Family Medicine
DX: Z00.00 Encounter for general adult medical examination without abnormal findings (principal); K75.4 Autoimmune hepatitis; M25.50 Pain in unspecified joint
CPT/HCPCS: 36415; 80048; 80061; 80076; 83036; 84439; 84443; 85025; 85652; 86038; 86140; 86431

== ENCOUNTER 2025-07-24 15:27 | Outpatient (OUT) | payer OTHER, SELFPAY ==
--- OUTSIDE RECORDS SUMMARY | 2025-07-24 10:17 | XMS_ITS | Continuity of Care Document ---
Author Organization [facility] Address [address] [place] [address] Phone Care Team Providers Care Metal Window Frame Maker Name Role Phone Viral Loving MD Primary Care Provider Ly, Melissa L DO Attending Provider [phone] Ly, Melissa L DO Other Provider AlbertMary hi DO Attending Provider Care Teams Patient Care Team Team Status: Active Member Role/Relationship Status Dates Viral Loving MD Primary Care Provider Active Visit Care Team Team Status: Inactive Member Role/Relationship Status Dates Viral Loving MD Primary Care Provider Active S tart: May 19, 2025 End: May 19atherine L Ly , DOAttending ProviderActiveStart: May 19, 2025 End: May 19, 2025 Visit Care Team Team Status: Active Member Role/Relationship Status Dates Viral Loving MD Primary Care Provider Active S tart: June 07, 2025 Melissa L Ly , DOAttending ProviderActiveStart: June 07, 2025 Melissa L Ly , DOOther ProviderActiveStart: June 07, 2025 Patient Care Team Team Status: Inactive Member Role/Relationship Status Dates Viral Loving MD Primary Care Provider Active S tart: July 24, 2025 End: July 24, 2025Jessgabino Albert , DOAttending ProviderActiveStart: July 24, 2025 End: July 24, 2025 Chief Complaint and Reason for Visit Chief Complaint Admit Date 6 month follow up/fibroscan May 10:15am hx of ulcers, GERD June 07, 2025 11:26am head/chest cold July 24, 2025 2:46pm Reason for Visit Admit Date Autoimmune hepatitis May 19, 2025 10:15am Duodenal ulcer May 19, 2025 10:15am Epigastric abdominal pain May 19, 2025 10:15am GERD (gastroesophageal reflux disease) S eptember 2024 10:15am Allergies, Adverse Reactions, Alerts Allergen Type Severity Reaction Last Updated Verified Status Comments doxycycline Allergy Unknown Vomiting July 3:01pm Yes Active Iodinated Contrast MediaAllergyUnknownDifficulty BreathingNov2024 3:01pmYesActiveCT ONLYpromethazineAllergyUnknownSeizureNovember 2024 3:01pmYesActivescopolamineAllergyUnknownDizzinessNovember 2024 3:01pmYes Active Social History Smoking Status Status Start Date End Date Date of Observa tion Never smoked tobacco (finding) June 07, 2025 11:52am Observation Status Observation Response Date of Response Legal Sex Female (finding) [facility] 1975 Family History Relationship Condition Age at Onset Recorded Date/T buffy father History of stroke Unknown DepressionUnknownHeart diseaseUnknownDiabetes mellitusUnknownHypertensionUnknown motherFibromyalgiaUnknownNeuropathyUnknownDepressionUnknownsisterHypertension UnknownAsthmaUnknowndaughterAsthmaUnknownChronic sinus complaintsUnknown Problems Active Problems Problem Diagnosis/Recorded Date Onset Date Stat Acute bacterial bronchitis July 24, 2025 3:11pm Unknown Active Exercise counseling January 12, 2024 1:56pm Unknown Active Medication side effects June 12, 2019 5:15pm Un known Active Traveler's diarrhea June 15, 2019 12:19am Unknown Active Fatigue August 25, 2024 3:52pm Unknown A ctive Palpitations February 01, 2019 5:19pm Unknown Active Dizziness July 19, 2019 6:49pm Unknown Ac tive Autoimmune hepatitis February 01, 2019 3:38pm Unknown Active Dietary surveillance and counseling January 12, 2024 1 :56pm Unknown Active Cough July 24, 2025 3:11pm Unknown A ctive Obesity, Class II, BMI 35-39.9 January 12, 2024 1:55pm Unknown Active Epigastric abdominal pain July 31, 2024 5:59pm U nknown Active GERD (gastroesophageal reflux disease) August 25, 2024 3:50pm Unknown Active Nausea and vomiting June 15, 2019 12:19am Unknown Active Duodenal ulcer August 09, 2024 2:41pm Unknown Active Duodenitis July 31, 2024 11:44am Unknown Active Inactive/Resolved Problems Problem Diagnosis/Recorded Date Onset Date Stat us Dyspepsia August 01, 2024 8:17am Unknown R esolved Dyspepsia March 17, 2025 5:04pm Unknown Resolv ed Gastritis March 17, 2025 5:04pm Unknown Resolv ed Intractable vomiting with nausea July 31, 2024 4 :02pm Unknown Resolved Abnormal CT of the abdomen August 01, 2024 8:17am Unknown Resolved Helicobacter positive gastritis August 01, 2024 8: 18am Unknown Resolved Dehydration June 12, 2019 5:15pm Unknown Resolved Hypokalemia July 31, 2024 6:00pm Unknown R esolved Medications Medication Status Dose Units Route Directions Qty Days Refills S tart Date Stop Date End Date Reason(s) Instructions Adherence Omeprazole 40 mg capsule,delayed release(DR/EC) Active 40 MG PO Twice daily 60 30 11 September 19, 2024 11:48am heartburnComplies with drug therapyFluticasone Propionate 250 mcg/actuation blister with ezqrcpDxgcuc4TCWSTUGSJJGKYVjyoj mjcax654Momnraeyl 2024 11:00pmSwallow two puffs twice daily.Complies with drug therapyOmeprazole 40 mg Capsule,Delayed Release(Dr/Ec)Vmhbdgpcihnl80QBXEFldea dailyAugust 2017 11:00pmMarch 2018 12:23pmAmitriptyline 10 mg thbjqzAkaxueaagmcl42IMCREvugr April 22, 2018 11:00pmApril 2023 1:34pmMetronidazole (Flagyl) 500 mg rujbqaWbwgllrlypdg226CSAUJ43N13159Oodoezn 2018 11:00pmApril 2023 1:34pmMeclizine 25 mg tiugbpRiyyslaudcbx04SMDI4 to 4 times per day as needed for dkurwdzhr5159Bkifxhe 2018 11:00pmApril 2023 1:34pmOndansetron 4 mg tablet,lcsczwgffurdjiElxbnqvnqdso5LOSKtywks 6 to 8 hours as needed for nausea and gnwlnimi751Estvpbe 2018 11:00pmApril 2023 1:34pmOmeprazole 40 mg capsule,delayed release(DR/EC)Tapgqtvujppz74GTUYJhaai as needed for heartburn July 31, 2024 12:00amNovember 2023 4:48pmOmeprazole 40 mg capsule,delayed release(DR/EC)Inhttrgxtypv65SFBNXlqyi vvevm95606Joirykej 18th, 2024 4:48pmJanuary 2024 11:48amheartburnMontelukast (Singulair) 10 mg FipwgoVfhxqddmkxcp50YOKQJzhes eveningGre[facility] 2018 12:00amApril 2023 1:34pmOseltamivir (Tamiflu) 75 mg akfqzieRybreraduuym03LKIMSysyo fagan4380Gkitq 2018 12:00amMarch 2018 12:00amMarch 2018 12:03amOndansetron 4 mg tablet,shqpqmmofgbjulKzmlaasgvteh3DDAKLeolb times daily as needed for nausea and wxxunnja6272Jkox 2024 11:00pm[email or web address]2024 9:21amSucralfate (Carafate) 1 gram zrpkqvUbcfsshmlgeo5IYLLodcvpg meals and at kwtccyq32108Nnfw 2024 11:00pm[facility] [[email or web address]]2024 9:21amPrednisone 10 mg cauwqvWdkwescpifbx06 MGPOApril 2023 11:00pmC[facility]20[facility] 8:21amValacyclovir 500 mg tablet Nxakuaiuqgen347LPNWoz neededApril 2023 11:00pmNov2023 8:21am Azithromycin 250 mg tagfutEsswjm6XS.SEVJPLU35GevxkndjJuly 24, 2025 12:00amFor 250 mg dose pack: take 500 mg today (day 1), then 250 mg for 4 days (days 2-5) PO Complies with drug therapyPrednisone 20 mg rzitqhUjpkkj65ZCBQDadsz7826Scijvkuc 10th, 2025 12:00amComplies with drug therapyAlbuterol Sulfate 90 mcg/actuation HFA aerosol zpddzxhHcitpn4ZHKSUFOEJIKWJUBxtur 6 hours as needed for shortness of breath or wheezing8.50July 24, 2025 12:00amComplies with drug therapy Vital Signs Vital Reading Result Reference Range Collection Date/Time BP Systolic 104 mm[Hg] 100-140 May 19, 2025 9:22am BP Diastolic 73 mm[Hg] 60-100 May 19, 2025 9:22am Height 63 [in_i] June 07, 2025 10:82tyPdzayc91.25 kgSept2024 10:48amHeart Rate 95 /lue18-915KpwqrsvsiJune 07, 2025 12:49pmRespiratory rate18 /mej38-70Nbhsmdffg 24th, 2025 12:49pmOxygen saturation by Pulse taiypghf54 %95-100June 07, 2025 12:49pmBP Dtranzfg32 mm[Hg]100-140Sept2024 12:49pmBP Diastolic 70 mm[Hg]60-100Sept2024 12:76yuVvelrg17 [in_i]July 24, 2025 2:51pmHeart Ginz079 /rvh90-205EpwvzypbJuly 24, 2025 2:51pmRespiratory rate20 /min 12-24July 24, 2025 2:51pmOxygen saturation by Pulse %95-100 July 24, 2025 2:51pmBP Arsndhrj458 mm[Hg]100-140July 24, 2025 2:51pm BP Pmqlisgxt89 mm[Hg]60-100Nov2024 2:51pm Advance Directives Advance Directive Response Recorded Date/ Time Advance Directives No May 9:27pm Insurance Providers Guarantor Trudy Wilder Address [address] [place] [id number] Info.Home Phone: Coverage Status Update:2025 Payer Group Member ID Coverage Type Subscriber Relationship to Subscriber Effective Date Expiration Date MMO Id: [id number] E [place] Id: [id number] [address] [facility] [phone] Home Phone: Email: [email or web address] Encounters Encounter Location(s) Arrival/Admit Date Discharge/Departure Date Discharge/Departure Disposition Provider(s) Departed Physician/ Provider Office Visit -[facility] May 19, 2025 10:15am May 19, 2025 10:36am Discharged to home care or self care (routine discharge) Melissa Hope DO Non-patient / Non-visit -[facility] 2024 11:26am Melissa Hope , DODeparted Physician/Provider Office Visit-[facility] 2024 2:46pmNov2024 3:15pmDischarged to home care or self care (routine discharge)Mary Price DO Recent Diagnosis Onset Date Admit Date Autoimmune hepatitis Unknown May 192024 10:15am Duodenal ulcer Unknown May 19, 2 025 10:15am Epigastric abdominal pain Unknown 2024 10:15am GERD (gastroesophageal reflux disease) Unknown May 19, 2025 10:15am Assessments Diagnosis Onset Date Resolution Status Admit Date Autoimmune hepatitis acuteMay 19, 2025 10:15amDuodenal ulceracuteSept2024 10:15am Epigastric abdominal painacuteSept2024 10:15amGERD (gastroesophageal reflux disease)acuteMay 19, 2025 10:15am Plan of Treatment Author [facility] Hope [facility]AuthoredSept[facility] 10:44am-continue PPI at current dose for now. Ideally would like to get dose down if able to in the future -will repeat EGD to check healing of her previous ulcers, repeat bx of esophagus for questionable hx of EoE -lifestyle mod for GERD -fiber rich diet and increased water intake -avoid NSAIDs -repeat CMP in 6 months to monitor LFTs -follow up in 6 months Future Tests Future scheduled test information is unavailable Pending Tests Test Name Ordered Date Scheduled Date Comprehensive Metabolic Panel May 19 9:29am 3 Months XR chest 2V* July 24, 2025 3:10pm Future Visits Future appointment information is unavailable Future Procedures Procedure Name Ordered Date Scheduled Date Discharge Order June 07, 2025 12:19pm Sep zena 2024 12:19pm Future Medications Future medication information is unavailable Patient Instructions Instruction Admit Date Gastritis - Discharge instru ctions Hiatal hernia - Discharge instructions Know your MedsSeptember 2024 11:26am
--- NOTE | 2025-07-24 15:33 | XR_ITS ---
The [address] [address] Patient Name: IMAN DURAN MRN: [id number] date: 1975 Sex: F Assigned Patient Location: [facility] Current Patient Location: [facility] Accession/Order Number: [id number] Exam Date: 07/24/2025 15:41 Report Date: 07/24/2025 18:24 At the request of: INGA CASEY DO Procedure: XR chest 2V PA AND LATERAL CHEST: CLINICAL HISTORY: Acute Bacterial Bronchitis, Cough COMPARISON: 01/20/2022 FINDINGS: Unremarkable cardiomediastinal. Lungs clear. No effusion or pneumothorax. XR/XR chest 2V IMPRESSION: NO ACUTE CARDIOPULMONARY ABNORMALITY. Impression dictated by: Jeovanny Comer M.D. 07/24/2025 6:24 PM Dictation Location: [place] [address] Electronically authenticated by: [id number] Y Date: 07/24/2025 18:24
--- OUTSIDE RECORDS SUMMARY | 2025-07-24 15:33 | XMS_ITS | Clinical Summary ---
Author Organization [facility] Address [id number] [address] [place] [address] Care Team Providers Care Music Internship Name Role Phone Viral Loving MD Primary Care Provider [phone] Allergies Active AllergyReactionsCriticalityNoted IztlSnzjnxvdUmwkivsifpp24/14/2018 Iodinated Contrast Media02/07/20172457Qghhtubujsdt66/27/2017Sulfa (Sulfonamide Antibiotics)02/07/2017 Medications * This document contains information received from the source organization and may not represent a complete record from that organization. No known medications Social History Tobacco UseTypesPacks/DayYears UsedDateSmoking Tobacco: NeverSmokeless Tobacco: NeverAlcohol UseStandard Drinks/WeekCommentsNo0 (1 standard drink = 0.6 oz pure alcohol)AUDIT-CAnswerDate RecordedFrequency of Alcohol ConsumptionNever 12/09/2018Average Number of DrinksNot on file12/09/2018Frequency of Binge DrinkingNot on file12/09/2018ChildcareAnswerDate RecordedChildcareUnknown 02/23/2019EmploymentAnswerDate RwjcprvuAstzdeojrnVzdzahx70/12/2019Purpose - Life AnswerDate RecordedPurpose and direction in jmjbDhpcnds51/11/2021 CommentsNoSex and Gender InformationValueDate RecordedSex Assigned at BirthNot on fileLegal EptCpedss28/06/2015 11:32 AM EDTGender IdentityNot on fileSexual OrientationNot on file Last Filed Vital Signs Vital SignReadingTime TakenCommentsBlood Rphwqilb608/8406 8:04 PM EDT Tjkwk52280/17/2019 8:04 PM RJOMxxhcdtmvep52.9 ??C (98.4 ??F)02/28/2019 8:04 PM EDTRespiratory Kbvg668602/28/2019 8:04 PM EDTOxygen Figbgiueij55%02/28/2019 8:04 PM EDTInhaled Oxygen Concentration--Yqedmb94 kg (183 lb)02/28/2019 8:04 PM EDT Mrznrn247 cm (5' 3 )02/28/2019 8:04 PM EDTBody Mass Index32.42002/28/2019 8:04 PM EDT Plan of Treatment Health MaintenanceDue DateLast DoneCommentsDTaP,Tdap and Td Vaccines (6 - Tdap) , 06/26/1979, 07/14/1978, Additional history exists Depression Xbnaevuni99/20/1990Tobacco Rjsieeiav27/20/1990Adult BMI Screening 1995Influenza Cufuruc8305/15/2025 Medical Devices Not on file Insurance Care Teams Team MemberRelationshipSpecialtyStart DateEnd Date Viral Loving MD [facility]02/07/17
--- OUTSIDE RECORDS SUMMARY | 2025-07-24 15:33 | XMS_ITS | Clinical Summary ---
Author Organization [facility] Address [address] [place] [address] Care Team Providers Care Studio Model Name Role Phone Viral Loving MD Primary Care Provider [phone] Allergies Active AllergyReactionsCriticalityNoted DateCommentsClindamycinGI intolerance High01/16/2025DoxycyclineGI sbqnmrmrkhhFzn71/25/2023romethazineSeizuresMedium 04/07/2023 Medications MedicationSigDispense QuantityRefillsLast FilledStart DateEnd DateStatus omeprazole (PriLOSEC) [address] capsule Indications:Eosinophilic esophagitis due to foodTAKE 1 CAPSULE BY MOUTH EVERY DAY 90 capsule 4Active fluconazole (Diflucan) 150 MG tablet Indications:Dysuria1 dose and repeat second dose in 3 days. 2 tablet 505Active Active Problems ProblemNoted DateDiagnosed DateAcute pain of left knee04/14/2025Internal derangement of left knee04/14/2025 Assessment & Plan (04/14/2025 12:11 PM EDT): Pain after fall and exam suggestive of meniscal injury. No improvement with conservative treatment and steroid. X-ray normal 03/12. Check MRI and will need to follow up with ortho. 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 Duodenal ulcer09/15/2024 Assessment & Plan (09/15/2024 2:33 PM EST): Continue medication and follow with GI. Chronic mibfafpsjobxjr43/02/2025 Assessment & Plan (09/15/2024 2:32 PM EST): Continued symptoms and treat with augmentin. Start leonor. Annual physical exam03/22/2024 Assessment & Plan (03/22/2024 3:20 PM EDT): Reviewed labs. Discussed proper diet and regular aerobic exercise. Need aerobic exercise 5-6 days aweek for 30 minutes at a time. Smaller portions and limit total calories. Never had colon cancer screening and willing to have cologuard. Tetanus every 10 years. Advised not to smoke. Discussed dailyAspirin therapy. Migraine without aura and without status migrainosus, not kehbkwmyhby59/18/2024 Plantar iliaeldta68/11/2024Gastrocnemius equinus of right lower extremity 02/23/2024ilateral lower extremity edema10/15/2023 Assessment & Plan (10/15/2023 5:12 PM EST): [...] conservative/symptomatic treatment for her symptoms. Screening for gzblazuqeibqdu22/01/2024 Assessment & Plan (10/15/2023 5:12 PM EST): Screen for HLD. Screening for diabetes tucevobj60/01/2024 Assessment & Plan (10/15/2023 5:13 PM EST): Screen for T2 DM. Autoimmune hepatitis treated with zxenejei01/01/2024 Assessment & Plan (10/15/2023 5:10 PM EST): No recent flare up. Requires prednisone for flare ups. Class 2 obesity due to excess calories without serious comorbidity with body mass index (BMI) of 37.0 to 37.9 in adult08/31/2023 Assessment & Plan (09/15/2024 2:34 PM EST): Weight loss indicated Allergic rhinitis caused by mold04/07/20233852Yhdsrzxgtoufsf00/25/2023Eosinophilic esophagitis due to food04/07/2023Visual onhmlssdfxb48/25/2023 Resolved Problems ProblemNoted DateDiagnosed DateResolved DateAcute qqfwugdc62/05/2024 Assessment & Plan (03/02/2024 3:26 PM EDT): Here with acute migraine HALL - ongoing for 3 days. Associated aura, no improvement with motrin/tylenol. She usually gets IM toradol when oral medications don't work - and it usually works well for her. She has previously used Imitrex and she can't use it because of adverse effects (delvis her neck wastightening up on it) She usually get 3-4 migraine HALL/day - does not meet criteria for migraine px. I will call in oral rizatriptan as needed for her. If she fails to respond to oral rizaptriptan - she will be good candidate for nurtec or ubrelvy. For today - we will order IM toradol 60 mg x 1 for her. Rnoubcfpbqh75/18/202301/10/2024 Assessment & Plan (09/03/2023 9:03 AM EST): Will hold on steroids or atb We will order [facility] and go from there Differentials; laryngeal reflux, or GERD does have hx of GERD but not acute symptoms at this time 09/03/23: [facility] lab is back, +stept pneumonia, will prescribe Amoxicillin for this Fullness in head/Unilateral primary osteoarthritis, right knee/Vaginal fsiizja92 Encounters DateTypeDepartmentCare MjxzHqwmrmcdhqp55/12/2025Results Follow-Up [facility] [address] [facility] [place] [id number] Viral Loving MD MR knee left wo IV xfymudwi35/11/2025 3:15 PM EDTAncillary Procedure [facility] [address] [place] [address] Internal derangement of left knee; Acute pain of left knee04/24/2025Travelfrom Last 3 Months Immunizations ImmunizationAdministration DatesNext OtrRZzY0805/05/1983,06/26/1979,07/14/1978, 05/07/1978,02/26/1978IPV05/05/1983,06/26/1979,07/14/1978,05/07/1978,02/26/1978 Influenza, injectable, MDCK, preservative free, qmhwrjofmgqm97/11/2023MMR 04/15/1979Tdap03/09/2023 Family History Medical HistoryRelationNameCommentsCancerFatherDepressionFatherDiabetesFather Heart diseaseFatherHyperlipidemiaFatherHypertensionFatherStrokeFatherstomach troubleFatherDepressionMotherFibromyalgiaMotherLung diseaseMotherRelationName StatusCommentsDaughterAliveFatherAliveMotherAlive Social History Tobacco UseTypesPacks/DayYears UsedDateSmoking Tobacco: NeverPassive Smoke Exposure: NeverSmokeless Tobacco: Never Tobacco Cessation:Counseling Given: No Alcohol UseStandard Drinks/WeekCommentsNever0 (1 standard drink = 0.6 oz pure alcohol)Caffeine: sodaPHQ-2AnswerDate RecordedPatient Health Questionnaire-2 Udhlj5804CommentsUnknownSex and Gender InformationValueDate RecordedSex Assigned at BirthNot on fileLegal LqsBaqlnk18/15/2023 6:56 PM EDT Gender IdentityNot on fileSexual OrientationNot on file Last Filed Vital Signs Vital SignReadingTime TakenCommentsBlood Wgsooxwh879/8204/14/2025 11:43 AM EDT Dayis419604/14/2025 11:43 AM BBHVnhngaabihr12.4 ??C (97.5 ??F)04/14/2025 11:43 AM EDTRespiratory Eato767404/14/2025 11:43 AM EDTOxygen Dpjxsnrnyt87%04/14/2025 11:43 AM EDTInhaled Oxygen Concentration--Exyoue29.3 kg (210 lb)04/14/2025 11:43 AM LKTQvrlul698 cm (5' 3 )04/14/2025 11:43 AM EDTBody Mass Index37. 11:43 AM EDT Plan of Treatment Not on file Procedures Procedure NamePriorityDate/TimeAssociated DiagnosisCommentsMR KNEE LEFT WO IV VCSRZVWRObfxxug60/11/2025 3:38 PM EDT Internal derangement of left knee Acute pain of left knee from Last 3 Months Results * MR knee left wo IV contrast (04/24/2025 3:38 PM EDT)Anatomical Region LateralityModalityLower Extremities, KneeLeftMagnetic ResonanceSpecimen (Source)Anatomical Location / LateralityCollection Method / VolumeCollection TimeReceived Time04/25/2025 2:08 PM EDT Impressions 04/25/2025 2:19 PM EDT Probable changes from prior partial medial meniscectomy, without evidence for recurrent tear. Findings associated with patellar instability/maltracking. ELECTRONICALLY SIGNED BY: Brandon Malave MD Narrative 04/25/2025 2:19 PM EDT EXAMINATION/TECHNIQUE: MR KNEE LEFT WO IV CONTRAST HISTORY: ?? Left knee pain after fall. History of prior arthroscopy 10 years ago. COMPARISON: ??None RESULT: Limitations from patient body habitus and inability to use dedicated knee coil. Associated artifact. Within these limits: MENISCI: Medial Meniscus: Probable changes from prior partial meniscectomy. No evidence for recurrent tear within limitations of the study. Lateral Meniscus: Grossly intact within limitations of the study. LIGAMENTS: ACL, PCL, MCL, and LCL complex grossly intact. CARTILAGE: Not well assessed. No distinct measurable full-thickness chondral defect within limitations of the study. TENDONS: Distal quadriceps intact. Patellar tendon intact. Popliteus intact. BONES AND MARROW: ??No evidence of fracture or bone marrow replacing process. MUSCLES: ??Muscle bulk and signal intensity are normal. JOINT FLUID AND SYNOVIUM: ??No joint effusion. No synovitis. Trace Butler's cyst. OTHER: Patella mary. Shallow trochlear morphology. Edema signal in the infrapatellar fat pad. Tibial tuberosity to trochlear groove (TT-TG) distance measures 14 mm. Medial patellofemoral retinaculum/ligament appears intact. Procedure Note Brandon Malave MD - 04/25/2025 EXAMINATION/TECHNIQUE: MR KNEE LEFT WO IV CONTRAST HISTORY: Left knee pain after fall. History of prior arthroscopy 10years ago. COMPARISON: None RESULT: Limitations from patient body habitus and inability to use dedicated kneecoil. Associated artifact. Within these limits: MENISCI: Medial Meniscus: Probable changes from prior partial meniscectomy. Noevidence for recurrent tear within limitations of the study. Lateral Meniscus: Grossly intact within limitations of the study. LIGAMENTS: ACL, PCL, MCL, and LCL complex grossly intact. CARTILAGE: Not well assessed. No distinct measurable full-thicknesschondral defect within limitations of the study. TENDONS: Distal quadriceps intact. Patellar tendon intact. Popliteusintact. BONES AND MARROW: No evidence of fracture or bone marrow replacingprocess. MUSCLES: Muscle bulk and signal intensity are normal. JOINT FLUID AND SYNOVIUM: No joint effusion. No synovitis. Trace Butler'scyst. OTHER: Patella mary. Shallow trochlear morphology. Edema signal in the infrapatellar fat pad. Tibial tuberosity to trochlear groove (TT-TG)distance measures 14 mm. Medial patellofemoral retinaculum/ligamentappears intact. IMPRESSION: Probable changes from prior partial medial meniscectomy, without evidencefor recurrent tear. Findings associated with patellar instability/maltracking. ELECTRONICALLY SIGNED BY: Brandon Malave MD Authorizing ProviderResult TypeResult StatusDignity Health St. [facility] Fabienne ADAMBunyn MRI PROCEDURES Final Result from Last 3 Months Insurance Care Teams Team MemberRelationshipSpecialtyStart DateEnd Date Viral Loving MD PCP - GeneralFamily Medicine10/15/23
--- OUTSIDE RECORDS SUMMARY | 2025-07-24 15:33 | XMS_ITS | Clinical Summary ---
Author Organization [facility] Address [address] [place] [address] Care Team Providers Care Completion Engineer Name Role Phone Viral Loving MD Primary Care Provider [phone] Allergies Active AllergyReactionsCriticalityNoted DateCommentsDoxycyclineVomitingMedium 11/16/2017Phenergan PlainOther: See Ppbglhvb62/09/2012 seizures Sulfa DyneHives,GI Upset07/23/2012 Medications MedicationSigDispense QuantityRefillsLast FilledStart DateEnd DateStatus topiramate (TOPAMAX) 25 mg tablet Indications:Dizziness and giddiness,Headache(784.0),PalpitationsTake 1 tablet by mouth daily at bedtime. for 1 week then increase to twice a day 60 tablet ctive Active Problems ProblemNoted DateDiagnosed DateSebaceous cyst11/24/2017Irritation, nose 11/24/20178829Fkbuwrklq02/13/2018 Social History Tobacco UseTypesPacks/DayYears UsedDateSmoking Tobacco: NeverSmokeless Tobacco: Never Tobacco Cessation:Counseling Given: No Alcohol UseStandard Drinks/WeekCommentsNo0 (1 standard drink = 0.6 oz pure alcohol)Area Deprivation IndexAnswerDate RecordedNational Score (1-100), lower number is lower riskNot on file08/22/2020State Score (1-10), lower number is lower riskNot on file08/22/2020Data from: https://www.neighborhoodatlas.medicine.[facility].edu/. Last address used for calculationNot on file08/22/2020CommentsNoSex and Gender Information ValueDate RecordedSex Assigned at BirthNot on fileLegal WdtQkizvj49/02/2012 10:18 AM ESTGender IdentityNot on fileSexual OrientationNot on file Last Filed Vital Signs Vital SignReadingTime TakenCommentsBlood Pressure--Pulse--Temperature-- Respiratory Rate--Oxygen Oscwqqcvsh403%07/23/2012 8:01 AM ESTInhaled Oxygen Concentration--Iovrob73.3 kg (188 lb 1.6 oz)07/23/2012 8:01 AM MJJQfpcef179 cm (5' 3 )07/23/2012 8:01 AM ESTBody Mass Index33.32109/22/2011 8:01 AM EST Plan of Treatment Health MaintenanceDue DateLast DoneCommentsAnxiety Cqkucsqet85/20/1996Depression Mjqfiiwwy52/20/1996HIV Jthspegts16/20/1996Hepatitis C Qnaardotv19/20/1996 DTaP,Tdap,Td Vaccine (1 - Tdap)1996Hepatitis B Vaccine (1 of 3 - 19+ 3- dose series)1996Cervical Cancer Hgxocmhsc35/20/1999Mammogram Screening 2017CT Mfcbhxrvszyz52/20/2023Cologuard (FIT-DNA)3Colonoscopy 2022olorectal Cancer Occhvaitf45/20/2023Diabetes Dnpayvqjx38/20/2023 07/23/2012Fecal Occult Blood2022Lipid Cgayimkmu58/20/2023Sigmoidoscopy 2022ovid-19 Vaccine ( season)2025Influenza Vaccine (#1) 2025 Procedures Procedure NamePriorityDate/TimeAssociated DiagnosisCommentsCOMPREHENSIVE METABOLIC PANEL07/23/2012 9:50 AM EST from Last 3 Months or Most Recently Relevant to Health Maintenance Results * (ABNORMAL) COMP METABOLIC PANEL (07/23/2012 9:50 AM EST)ComponentValueRef RangeTest MethodAnalysis TimePerformed AtPathologist SignatureProtein, Total 6.86.0 - 8.4 g/dLMEDINA LABORATORYAlbumin4.63.5 - 5.0 g/dLMEDINA LABORATORY Calcium9.38.5 - 10.5 mg/dLMEDINA LABORATORYBilirubin, Total0.50.0 - 1.5 mg/dL TRIVEDI LABORATORYAlkaline Tizatiezieo0917 - 150 U/LMEDINA YWTJPNVAOIQYJ032 - 40 U/LMEDINA IESXCAIDSFQoouctk3317 - 100 mg/dLMEDINA LNHPPTHBPROIN26 - 25 mg/dLMEDINA LABORATORYCreatinine0.63(L)0.70 - 1.40 mg/dLMEDINA LABORATORY Exyshg416991 - 148 mmol/LMEDINA LABORATORYPotassium4.03.5 - 5.0 mmol/LMEDINA DLZVYVXXWKEijglmir54237 - 110 mmol/LMEDINA BGTFMZABJHNN65278 - 32 mmol/LMEDINA LABORATORYAnion Dgo6958 - 20 mmol/LMEDINA EHPJWSXETQJZP779 - 45 U/LMEDINA LABORATORYeGFR, >60MEDINA LABORATORYeGFR-All Other Races>60. TRIVEDI LABORATORYSpecimen (Source)Anatomical Location / LateralityCollection Method / VolumeCollection TimeReceived Time07/23/2012 9:50 AM EST07/23/2012 9:52 AM EST Narrative Authorizing ProviderResult TypeResult StatusDiana TanaseLABORATORYEdited Performing OrganizationAddressCity/State/ZIP CodePhone Number [facility] [address] [place] [address] from Last 3 Months or Most Recently Relevant to Health Maintenance Insurance * Guarantor: Trudy Wilder EAccount TypeRelation to PatientDate of BirthPhone Billing AddressPersonal/KeoxvgRhiz57/20/1976 [address] [place] [address] MemberSubscriberPlan / Payer (Effective 2021-Present)Name:Trudy Wilder Relation to Subscriber:SelfName:Trudy Wilder Payer ID:[id number] (NAIC) Group ID:Not on file Type:PPO Address: [facility] [id number] [place] [id number] Care Teams Team MemberRelationshipSpecialtyStart DateEnd Date Viral Loving MD [facility]02/08/14
--- OUTSIDE RECORDS SUMMARY | 2025-07-24 15:33 | XMS_ITS | Clinical Summary ---
Author Organization [facility] Address [address] [place] [address], [address] [place] [address] Care Team Providers Care Director Of Estate Name Role Phone Unavailable Primary Care Provider Unavailabl e Social History Tobacco UseTypesPacks/DayYears UsedDateSmoking Tobacco: Never Assessed CommentsUnknownSex and Gender InformationValueDate RecordedSex Assigned at Not on fileLegal KitDpnifx08/10/2013 12:30 PM ESTGender IdentityNot on file Sexual OrientationNot on file Plan of Treatment Not on file
--- OUTSIDE RECORDS SUMMARY | 2025-07-24 15:33 | XMS_ITS | Clinical Summary ---
Author Organization [facility] Address [address] [place] [address] Phone Care Team Providers Care Director Sales And Marketing Name Role Phone Viral Loving MD Primary Care Provider + Social History Tobacco UseTypesPacks/DayYears UsedDateSmoking Tobacco: Never Assessed CommentsUnknownSex and Gender InformationValueDate RecordedSex Assigned at Not on fileLegal MapThxnvn78/26/2022 7:15 AM ESTGender IdentityNot on fileSexual OrientationNot on file Plan of Treatment Not on file Care Teams Team MemberRelationshipSpecialtyStart DateEnd Date Viral Loving MD PCP - General02/12/18
--- OUTSIDE RECORDS SUMMARY | 2025-07-24 15:33 | XMS_ITS | Encounter Summary ---
Author Organization [facility] Address [address] [place] [address] Care Team Providers Care Concrete Panel Installer Name Role Phone Viral Loving MD Primary Care Provider [phone] Shaikh JAIR Garcia Unavailable [phone] Viral Loving MD Unavailable Encounter Details DateTypeDepartmentCare Team (Latest Contact Info)Bqloeztjzyw33/22/2024Clinisync Result Encounter [facility] External Department Unsolicited Provider, Generic External Data Social History Tobacco UseTypesPacks/DayYears UsedDateSmoking Tobacco: NeverSmokeless Tobacco: NeverAlcohol UseStandard Drinks/WeekCommentsNever0 (1 standard drink = 0.6 oz pure alcohol)Caffeine: sodaPHQ-2AnswerDate RecordedPatient Health Questionnaire- 2 Vumzy6774CommentsUnknownSex and Gender InformationValueDate RecordedSex Assigned at BirthNot on fileLegal AgmKpvomn29/15/2023 6:56 PM EDT Gender IdentityNot on fileSexual OrientationNot on filedocumented as of this encounter Functional Status * Over the past 2 weeks, how often have you been bothered by any of the following problems?QuestionAnswerDate of AssessmentAuthorLittle interest or pleasure in doing thingsNot at all03/02/2024 3:17 PM Linwood Leon MA Feeling down, depressed, or hopelessNot at all03/02/2024 3:17 PM Linwood Leon MAPatient Health Questionnaire-2 Jcgrd777 3:17 PM Linwood Leon MA documented as of this encounter Plan of Treatment Not on file documented as of this encounter Procedures Procedure NamePriorityDate/TimeAssociated DiagnosisCommentsVC FACILITY EST GYQQFFOMKEMIT20/22/2024 3:37 PM EST documented in this encounter Results * [facility] FACILITY EST COMPREHENSIVE (11/05/2023 3:37 PM EST)Anatomical Region LateralityModalityOtherSpecimen (Source)Anatomical Location / Laterality Collection Method / VolumeCollection TimeReceived Time11/05/2023 3:37 PM EST Narrative 11/05/2023 3:37 PM EST [facility] ?[address] ? [place] [address] ?Vein Report ? Signed ? Patient: IMAN WILDER ?MR#: [id number] ?? : 1975 ?Acct:[id number] ?? Age/Sex: 48 / F ?ADM Date: 11/05/23 ?? Loc: [facility] ? Attending Dr: Elder Koenig M.D. ? Ordering Physician: Elder Koenig M.D. ?? Date of Service: 11/05/23 ?? Procedure(s): [facility] Facility EST Comprehensive ?? Accession Number(s): [id number] ? cc: Viral Loving M.D.; Elder Koenig M.D. ? Patient Name: ? IMAN WILDER ? MR#: [id number] ? : 1975 ? Exam Date: 11/05/2023 ?? Ordering Doctor: DR ELDER KOENIG M.D. ? RADIOLOGY REPORT ? PROCEDURE: ? [facility] FACILITY EST COMPREHENSIVE ? VEIN CENTER - OFFICE VISIT INITIAL ? COMPARISON: None. ? PROGRESS NOTES: ? [age] year old female who presents with a 1 year history of lower ?? extremity swelling, pain. The patient's left leg symptoms are worse than the ?? right. There was progression of symptoms initially, but things have started to ?? improve. ??The pain and swelling increases with prolonged leg dependency. The ?? patient describes an improvement with rest, elevation, exercise, decreased ?? salt intake, change in diet. The patient denies any signs and symptoms to ?? suggest arterial ischemia. ? The patient describes a family history heart disease, diabetes, hypertension. ?? The patient has drinking and smoking history of : ??None. Patient has a past ?? medical history significant for obesity, kidney stones, bilateral lower ?? extremity edema. ??The patient denies a history of deep venous thrombus or ?? pulmonary embolus. ? See separate history and physical for medication list. ??No prior treatment for ?? varicose or spider veins. ??No current use of compression stockings. ? After review of nurse notes, history and physical exam I discussed at length ?? the pathophysiology of venous hypertension and possible treatments, therapies ?? and strategies available. We discussed at length the importance of elevating ?? the lower extremities above the level of the heart, increased physical ?? activity and compression stocking use. ? Ultrasound venous reflux study performed today was discussed at length with ?? the patient. The report demonstrates mildly dilated proximal right great ?? saphenous vein with moderate reflux in the proximal segment. ??The remainder of ?? the right great saphenous vein is normal caliber with only mild reflux. ??No ?? abnormality of the right small saphenous, anterior accessory saphenous, left ?? great saphenous and small saphenous veins.. ? PHYSICAL EXAM: ? The right leg demonstrates no visible varicosities, no significant spider ?? veins, no ulceration, no significant edema, ??no skin discoloration. ? The left leg demonstrates no visible varicosities, no significant spider ?? veins, no ulceration, no significant edema, ??no skin discoloration. ? Both thighs, legs and feet were symmetrically warm to the touch. Good ?? posterior tibial and dorsalis pedis pulses were present bilaterally. ? VEIN/[facility] Facility EST Comprehensive ?? IMPRESSION: ? 1. ??Mild right great saphenous venous insufficiency ?? 2. ??No significant lower extremity varicose veins ?? 3. ??No significant lower extremity subcutaneous edema ?? 4. No ??flow significant arterial disease ?? 5. CEAP: ??C 0, EN, AN, PN ? PLAN: ?? 1. Continued use of compression stockings ?? 2. Elevated legs and increased physical activity symptomatic relief ?? 3. No treatment for vein disease recommended at this time. ??Please follow-up ?? in future as needed. ? Nurse notes, history and physical were reviewed and confirmed, see attached ?? forms. ?? The nurse was present throughout the physical exam and consultation ? Dictated by: Ty Aguirre M.D. on 11/05/2023 at 15:29 ? Approved by: Ty Aguirre M.D. on 11/05/2023 at 15:36 ? Dictated By: ?Ty Aguirre M.D. ? Signed By: ?11/05/237 ? DD/ 1537 ? TD/TT: ? Promotions Executive: Procedure Note Radiology, Radiologist, MD - 11/05/2023 [place] [address] Vein Report Signed Patient: IMAN WILDER EMR#: [id number] : 1975Acct:[id number] Age/Sex: 48 / FADM Date: 11/05/23 Loc: Attending Dr: Elder Koenig M.D. Ordering Physician: Elder Koenig M.D. Date of Service: 11/05/23 Procedure(s): [facility] Comprehensive Accession Number(s): [id number] cc: Viral Loving M.D.; Elder Koenig M.D. Patient Name: IMAN WILDER MR#: [id number] : 1975 Exam Date: 11/05/2023 Ordering Doctor: DR ELDER KOENIG M.D. RADIOLOGY REPORT PROCEDURE: [facility] COMPREHENSIVE VEIN CENTER - OFFICE [...] M.D. Signed By:11/05/23 1537 DD/ 1537 TD/TT: Promotions Executive: Authorizing ProviderResult TypeResult StatusGeneric External Data Provider CL[facility]IS[facility]NC IMAGINGFinal Result documented in this encounter Visit Diagnoses Not on filedocumented in this encounter Care Teams Team MemberRelationshipSpecialtyStart DateEnd Date Viral Loving MD [facility] - [facility]/15/23 Shaikh Garcia MD [address] [place] [address] PCP - [place] [employer]04/14/2411 Viral Loving MD [address] [place] [address] PCP - Luis Jdkiijuvau79/1/244documented as of this encounter
--- OUTSIDE RECORDS SUMMARY | 2025-07-24 15:33 | XMS_ITS | Encounter Summary ---
Author Organization [facility] Address [address] [place] [address] Care Team Providers Care Customs Manager Name Role Phone Viral Loving MD Primary Care Provider [phone] Shaikh JAIR Garcia Unavailable [phone] Viral Loving MD Unavailable Encounter Details DateTypeDepartmentCare Team (Latest Contact Info)Qmsyfyeuqgx21/22/2024Clinisync Result Encounter [facility] Unsolicited Provider, Generic External Data Social History Tobacco UseTypesPacks/DayYears UsedDateSmoking Tobacco: NeverSmokeless Tobacco: NeverAlcohol UseStandard Drinks/WeekCommentsNever0 (1 standard drink = 0.6 oz pure alcohol)Caffeine: sodaPHQ-2AnswerDate RecordedPatient Health Questionnaire- 2 [id number] and Gender InformationValueDate RecordedSex Assigned at BirthNot on fileLegal GfuOykyrb38/15/2023 6:56 PM EDT Gender IdentityNot on fileSexual OrientationNot on filedocumented as of this encounter Functional Status * Over the past 2 weeks, how often have you been bothered by any of the following problems?QuestionAnswerDate of AssessmentAuthorLittle interest or pleasure in doing thingsNot at all03/02/2024 3:17 PM Linwood Leon MA Feeling down, depressed, or hopelessNot at all03/02/2024 3:17 PM Linwood Leon MAPatient Health Questionnaire-2 [id number] 3:17 PM Linwood Leon MA documented as of this encounter Plan of Treatment Not on file documented as of this encounter Procedures Procedure NamePriorityDate/TimeAssociated DiagnosisCommentsVC EXT VENOUS REFLUX CHIN LMTD11/05/2023 3:24 PM EST documented in this encounter Results * VC EXT VENOUS REFLUX CHIN LMTD (11/05/2023 3:24 PM EST)Anatomical Region LateralityModalityOtherSpecimen (Source)Anatomical Location / Laterality Collection Method / VolumeCollection TimeReceived Time11/05/2023 3:24 PM EST Narrative 11/05/2023 3:25 PM EST [facility] ?[address] ? [place], [facility] ?Vein Report ? Signed ? Patient: IMAN WILDER ?MR#: [id number] ?? : 1975 ?Acct:[id number] ?? Age/Sex: 48 / F ?ADM Date: 11/05/23 ?? Loc: [facility] ? Attending Dr: Elder Koenig M.D. ? Ordering Physician: Elder Koenig M.D. ?? Date of Service: 11/05/23 ?? Procedure(s): VC EXT Venous Reflux CHIN LMTD ?? Accession Number(s): [id number] ? cc: Viral Loving M.D.; Elder Koenig M.D. ? Patient Name: ? IMAN WILDER ? MR#: [id number] ? : 1975 ? Exam Date: 11/05/2023 ?? Ordering Doctor: DR ELDER KOENIG M.D. ? RADIOLOGY REPORT ? PROCEDURE: ? VC EXT VENOUS REFLUX CHIN LMTD ? COMPARISON: ? None. ? INDICATIONS: ? I83.813 Bilateral painful varicose veins ? TECHNIQUE: ? Duplex imaging of the lower extremity to assess the deep and ?? superficial venous system for the presence of deep or superficial venous ?? incompetence and to document the location and severity of disease. ??The study ?? includes evaluation of the great saphenous vein (GSV), anterior accessory ?? saphenous vein (AASV) and small saphenous vein (SSV). ??Patient scanned in ?? reverse Trendelenburg and standing. ?? FINDINGS: ? RIGHT LOWER EXTREMITY: ?? Saphenofemoral Junction Reflux: Yes 7.7mm 2.5 sec ?? GSV: ? Diam (mm) ?Reflux/ Time (sec) ?? Proximal Thigh ? 6.6 ? Yes ?? 2.7 ?? Mid Thigh ? 4.3 ? No ?? Distal Thigh ? 5.4 ? Yes ? 1.0 ?? Prox Calf ? 4.6 ? Yes ? 0.7 ?? Mid Calf ? 3.5 ? Yes ?0.8 ?? Saphenopopliteal Junction Reflux: 2.3mm ?No ? SSV: ? Proximal Calf ? 2.7 ? Mid Calf ? 2.5 ? No ? AASV: ? Proximal Thigh ? 4.3 ? No ? Mid Thigh ? 2.6 ? No ? Distal Thigh ? Thrombi: ? No acute or chronic thrombus visualized ? Compressibility: ? Normal ? Flow: ? Normal ? Preforator: Dist/med calf 2.8mm with 0s reflux. Prox/med calf 3.2mm with 0s ?? reflux. ?? Tech Note: Incompetent GSV. Patent varicose vein mid/med calf 4.1mm with 0s ?? reflux. ? LEFT LOWER EXTREMITY: ?? Saphenofemoral Junction Reflux: No 5.3 mm sec ?? GSV: ? Diam (mm) ? Reflux/Time (sec) ?? Proximal ??Thigh ? 2.7 ? No ? Mid ?? Thigh ? 3.2 ? Yes ?0.5 ?? Distal ??Thigh ? 3.9 ? No ? Prox ??Calf ? 3.6 ? No ? Mid ??Calf ? 3.2 ? No ? Saphenopopliteal Junction Relux: ? 2.1 mm ? N/A ? SSV: ? Proximal ??Calf ? 1.8 ? No ?? Mid ??Calf ?N/A ? AASV: ??Not present ? Proximal ??Thigh ? Mid ??Thigh ? Distal ??Thigh ? Thrombi: ? No acute or chronic thrombus visualized ? Compressibility: ? Normal ? Flow: ? Normal ? Radiology Interventional Physician: Dist/med calf 3.1mm with 0s reflux. ?? Tech Note: No incompetent or varicose veins present. ? CONCLUSION: ?? 1. 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 ? Dictated by: Ty Aguirre M.D. on 11/05/2023 at 14:25 ? Approved by: Ty Aguirre M.D. on 11/05/2023 at 15:24 ? Dictated By: ?Ty Aguirre M.D. ? Signed By: ?11/05/23 1525 ? DD/ 1524 ? TD/TT: ? Occup Ther: Procedure Note Radiology, Radiologist, MD - 11/05/[address] [address] Vein Report Signed Patient: IMAN WILDER EMR#: [id number] : 1975Acct:[id number] Age/Sex: 48 / FADM Date: 11/05/23 Loc: [facility] Attending Dr: Elder Koenig M.D. Ordering Physician: Elder Koenig M.D. Date of Service: 11/05/23 Procedure(s): VC EXT Venous Reflux CHIN LMTD Accession Number(s): [id number] cc: Viral Loving M.D.; Elder Koenig M.D. Patient Name: IMAN WILDER MR#: [id number] : 1975 Exam Date: 11/05/2023 Ordering Doctor: [...] chronic thrombus visualized Compressibility: Normal Flow: Normal Radiology Interventional Physician: Dist/med calf 3.1mm with 0s reflux. Tech Note: No incompetent or varicose veins present. CONCLUSION: 1. 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 Dictated by: Ty Aguirre M.D. on 11/05/2023 at 14:25 Approved by: Ty Aguirre M.D. on 11/05/2023 at 15:24 Dictated By: Ty Aguirre M.D. Signed By:11/05/23 1525 DD/ 1524 TD/TT: Occup Ther: Authorizing ProviderResult TypeResult StatusGeneric External Data Provider [facility] IMAGINGFinal Result documented in this encounter Visit Diagnoses Not on filedocumented in this encounter Care Teams Team MemberRelationshipSpecialtyStart DateEnd Date Viral Loving MD [facility] - [facility] Shaikh Garcia MD [address] [place] [id number] PCP - Luis Commercial04/14/2411 Viral Loving MD [address] [place] [phone] PCP - Luis Lpcadnpkac68/1/244documented as of this encounter
--- OUTSIDE RECORDS SUMMARY | 2025-07-24 15:37 | XMS_ITS | CCD ---
Author Organization [facility] ion Partnership [facility] Care Team Providers Care Furnace Combustion Tester Name Role Phone Elian Doherty Unavailable Unavailable Didier Beltrán Unavailable Unavailable Viral Lewis Unavailable Unavailable Nir Cotto Unavailable Ellie Kemp Unavailable MD Viral Lewis Primary Care Provider [phone] MD Nir Cotto Attending Provider JOSE, BOWERS H Admitting Unavailable FAWWAD, BOWERS H Consulting Unavailable FAWWALuke, BOWERS H Attending Unavailable NADEREJohny, DR VIRAL Cervantes Primary Care Unavailable NADERER, DR VIRAL Cervantes Consulting Unavailable NADERER, DR VIRAL Cervantes Attending Unavailable NADERER, DR VIRAL Cervantes Admitting Unavailable NADERER, DR VIRAL Cervantes Primary Care Unavailable FAWWAD, BOWERS H Attending Unavailable FAWWAD, BOWERS H Admitting Unavailable FAWWAD, BOWERS H Consulting Unavailable NADERER, DR VIRAL Cervantes Primary Care Unavailable SALOMÓN CERVANTES Consulting Unavailable Faina Miller Unavailable CRISSY Miller Attending Provider [phone] Viral Lewis MD Primary Care Provider Shaikh Garcia MD Unavailable Viral Lewis MD Primary Care Provider Catie Flores DO Emergency Provider [phone] Valerio Zheng DO Admit Provider [phone] Valerio Zheng DO Attending Provider [phone] Spenser Yarbrough MD Attending Provider [phone] Bowen Lozano MD Other Provider Fabienne ADAM, Viral Primary Care Provider Swetha VALENTINO, Rosalia Rawls Emergency Provider Cris LYONC, Sendy Quigley Attending Love Lewis MD, [facility] Primary Care Unavail able Paras PA-C, Wil Easley Attending Unavail able Fabienne ADAM, [facility] Unavail able Cris PAVanessaC, Sendy Quigley Attending Love Lewis MD, [facility] Care Unavail able Kodak PA-C, Mavis Easley Attending Marry Lewis MD, [facility] Care Unavail able Cris DEE-C, Sendy Quigley Attending Love Lewis MD, [facility] Care Unavail able Leisaer PA-C, Mavis Easley Attending Marry Lewis MD, [facility] Care Unavail able Kodak PA-C, Mavis Easley Attending Marry Lewis MD, [facility] Care Unavail able Woodyh PA-C, Sendy Quigley Attending Love Lewis MD, [facility] Care Unavail able Kodak DEE-C, Mavis Easley Attending Marry Lewis MD, Viral [facility] Care Unavail able Woodyh PA-C, Sendy Quigley Attending Love Lewis MD, [facility] Care Unavail able Kodak DEE-C, Mavis Easley Attending Marry Lewis MD, [facility] Primary Care Unavail able Cris PA-C, Sendy Quigley Attending Love Lewis MD, [facility] Primary Care Unavail able BREE BENITEZ Attending Unavailable CHRISTIN ROWE Attending Unavailable CLAUDIA OTTO Attending Unavailable CLAUDIA OTTO Attending Unavailable VIRAL LEWIS Attending Unavailable VIRAL LEWIS Referring Unavailable DALLIN MARTINEZ Attending Unavailable VIRAL ELWIS Attending Unavailable Melissa Hope DO Attending Provider [phone] Ly DO, Melissa L Other Provider [phone] Ly, Melissa L Admitting Unavailable Ly, Melissa L Attending Unavailable Viral Lewis Primary Care Unavailable Ly, Melissa L Attending Unavailable Viral Lewis Primary Care Unavailable Ly, Melissa L Admitting Unavailable Doamekpor, Spenser E Attending Unavailab Bowen Bloom Consulting Unavailable Viral Lewis Primary Care Unavailable NicolmValerio Admitting Unavailabl e Ly, Melissa L Attending Unavailable Viral Lewis Primary Care Unavailable Ly, Melissa L Admitting Unavailable PosadaRosalia ibrahim Admitting Unavailable Rosalia Posada Attending Unavailable Viral Lewis Primary Care Unavailable Fabienne ADAM, Viral Primary Care Provider [phone] Jose ADAM, Bowers Unavailable Viral Lewis MD Unavailable Allergies Allergy ClassificationReported Allergen(s)Allergy TypeDate of OnsetReaction(s) Facility (20 sources)Doxycycline; Translations: [doxycycline]Drug Wpwatva29-77-4776HA[facility] (4 sources)Promethazine; Translations: [Phenergan]Drug Uxwcypa64-50-5400[facility] (2 sources)Sulfonamides (Antibiotic)Allergy to drug (finding) [facility]-HmcjqbfSi[facility] [address] Work Phone: (9 sources)ClarithromycinDrug AllergyUnkButler Hospital CampuScene Other (20 sources)PromethazineDrug Ahdcvoo76-23-7872SefusdiiCmzxcwudeMemorial Health System [facility] (9 sources)SulfacetamideDrug AllergyUnkButler Hospital CampuScene Other (9 sources)cat scan contrastPropensity to adverse reactionsJohn E. Fogarty [facility] Hospital CampuScene Other (2 sources)Sulfonamides (Antibiotic)Allergy to asoxilfyn20-50-0549FauhUeskrpgmkWooster [facility] (9 sources)Iodinated Contrast Media; Translations: [Iodinated Contrast Media] Allergy to -[phone] BreathingParma Community General HospitalComment on above:CT ONLY (1 source)Sulfonamides (Antibiotic)Drug allergy (disorder)66-06-8263Epc [facility] Repository (1 source)topiramateDrug Uoscjef75-55-2055Var [facility] Repository (5 sources)Sulfonamides (Antibiotic)Drug Wegedry97-79-3524FpctcC[facility] (6 sources)Scopolamine; Translations: [scopolamine]Drug Vohxsjo47-97-8324 [facility] (18 sources)Clindamycin; Translations: [clindamycin]Drug Lsvijun05-93-0145ZGChristiana Hospital (1 source)Contrast media; Translations: [contrast media (iodine-based)] Propensity to adverse reactions to drug (disorder)[facility] Repository (1 source)ALLERGIES NOT ON FILE; Translations: [ALLERGIES NOT ON FILE]Propensity to adverse reactions (disorder)[facility] Repository (1 source)PromethazineDrug Giwcozs83-05-6254DoimpkkecParma Community General Hospital Repository Medications Current Medications MedicationDrug Class(es)DatesSig (Normalized)Sig (Original)amoxicillin 875 mg / clavulanate 125 mg oral tablet (2 sources)Penicillin-class AntibacterialStart: 09-15-2024 End: 28-66-6270jluw 1 tablet by mouth in the morningamoxicillin-clavulanate (Augmentin) 875-125 MG tablet Indications: Chronic rhinosinusitis Take 1 tablet (875 mg) by mouth in the morning and 1 tablet (875 mg) before bedtime. Do all this for 14 days.28 tablet 09/15/2024 09/29/2024 Activefluconazole 150 mg oral tablet (18 sources)Azole AntifungalStart: 10-11-5950zofjhpqhmoj (Diflucan) 150 MG tablet Indications: Dysuria 1 dose and repeat second dose in 3 days. 2 tablet 5 04/14/2025 ActiveStart: 47-70-9017gfpwknmtdwt (Diflucan) 150 MG tablet Indications: Dysuria 1 dose and repeat second dose in 3 days. 2 tablet 5 04/14/2025 ActiveStart: 01-18-2025 End: 63-34-5893zuamwuamimp (Diflucan) 150 MG tablet Indications: Dysuria Take 1 tablet (150 mg) by mouth Daily for2 doses 1 dose and repeat second dose in 3 days. 2 tablet 01/30/2025 02/01/2025 ActiveStart: 06-29-2024 End: 42-08-4579xoev 1 tablet by mouth oncefluconazole (Diflucan) 150 MG tablet Indications: Acute vaginitis Take 1 tablet (150 mg) by mouth 1(one) time for 1 dose 1 tablet 07/04/2024 07/04/2024 ExpiredStart: 09-25-2023 End: 58-72-0697uyuwpmafjrx (Diflucan) 150 MG tablet Indications: Dysuria , Vaginal discharge Take 1 tablet (150 mg) by mouth in the morning. Take 1 tab today; may repeat x 1 if no improvement in symptoms in 72 hours. 2 tablet 0 09/25/2023 10/15/2023 Discontinued (Therapy completed)Start: 04-30-2023 Fluconazole 150 MG 1 tablet Orally once, repeat dose in 72 hours if needed for 2 17 Apr, 2023 ActiveStart: 98-06-9718tvab 1 tablet by mouth every weekDiflucan 150 MG 1 tablet Orally Q week for 7 days Take 1 tablet by mouth today, repeat in 1 week. Oct, Activefurosemide 20 mg oral tablet (2 sources)Loop DiureticStart: 10-22-2023 End: 10-26-4520xjkg 1 tablet by mouth in the morningfurosemide (Lasix) 20 MG tablet Indications: Bilateral lower extremity edema Take 1 tablet (20 mg) by mouth in the morning. 30 tablet 0 10/22/2023 11/21/2023 ActivemetroNIDAZOLE 500 mg oral tablet (20 sources)Nitroimidazole AntimicrobialStart: 04-14-2025 End: 34-80-2383sfvn 1 tablet by mouth oncemetroNIDAZOLE (Flagyl) 500 MG tablet Indications: Acute vaginitis Take 1 tablet (500 mg) by mouth every 12 (twelve) hours for 7 days 14 tablet 3 04/14/2025 04/21/2025 ActiveStart: 04-10-2025 End: 01-42-8380vfor 1 tablet by mouth every twelve hoursmetroNIDAZOLE (Flagyl) 500 MG tablet Indications: Acute vaginitis TAKE 1 TABLET BY MOUTH EVERY 12 HOURS FOR 7 DAYS 14 tablet 04/10/2025 04/14/2025 DiscontinuedStart: 07-04-2024 End: 28-61-7331ygwx 1 tablet by mouth oncemetroNIDAZOLE (Flagyl) 500 MG tablet Indications: Acute vaginitis Take 1 tablet (500 mg) by mouth every 12 (twelve) hours for 7 days 14 tablet 07/04/2024 07/11/2024 ExpiredStart: 19-89-9367vojg 1 tablet by mouth every twelve hoursmetroNIDAZOLE 500 MG 1 tablet Orally Twice a day for 7 day(s) Apr, ActiveStart: 81-82-8330mostnIZHNQKWA 0.75 % 1 application intravaginally Once a day for 5 day(s) Oct, ActiveStart: 17-21-8714qyea 4 tablets by mouth once at mealtimemetroNIDAZOLE 500 MG 4 tabs Orally once for 1 day Take 4 tablets by mouth all at once with food today Oct, ActiveStart: 41-08-0669Zqknfyuh 1 % 1 application intravaginally Once a day for 5 day(s) Oct, ActiveStart: 06-15-2019 End: 03-53-8612cohs 1 tablet by mouth every twelve hoursMetronidazole (Flagyl) 500 mg tablet Discontinued 500 MG PO Q12H 20 June 15, 2019 12:00am January 12, 2024 2:34pmomeprazole 40 mg delayed release oral capsule (20 sources)Proton Pump InhibitorStart: 08-01-2024 End: 72-92-4908vagg 1 capsule by mouth twice dailyOmeprazole 40 mg capsule,delayed release(DR/EC) Active 40 MG PO Twice daily September 192:48pm Complies with drug therapyStart: 07-06-2024 End: 65-08-2280aqpt 1 capsule by mouth once daily as needed for gastroesophageal reflux diseaseOmeprazole 40 mg capsule,delayed release(DR/EC) Discontinued 40 MG PO Daily as needed for heartburnNov2023 1:00am August 01, 2024 5:48pmStart: 04-23-2018 End: 85-79-4302dmhk 1 capsule by mouth twice dailyOmeprazole 40 mg Capsule,Delayed Release(Dr/Ec) Discontinued 40 MG PO Twice daily April 23, 201812:00am December 07, 2018 1:23pmpantoprazole 40 mg delayed release oral tablet (2 sources)Proton Pump InhibitorStart: 29-59-5366tifj 1 tablet by mouth every twenty-four hoursPantoprazole Sodium 40 MG 1 tablet Orally Once a day for 30 days January, ActiveToradol 30 mg/ml (5 sources)Start: 51-79-9104Fgwyxmq 30 mg/ml Mar, 60 mg Completed/Discontinued Medications MedicationDrug Class(es)DatesSig (Normalized)Sig (Original)amitriptyline hydrochloride 10 mg oral tablet (10 sources)Tricyclic AntidepressantStart: 02-02-2018 End: 56-46-4578uuan 1 tablet by mouth once dailyAmitriptyline 10 mg tablet Discontinued 10 MG PO Daily April 23, 2018 12:00am January 12, 2024 2:34pm azithromycin 250 mg oral tablet (10 sources)Macrolide AntimicrobialStart: 01-30-2025 End: 81-46-4370kzxbvftcdtkv (Zithromax Z-German) 250 MG tablet Indications: Dysuria Take 2 tablets (500 mg) on Day 1,followed by 1 tablet (250 mg) once daily on Days 2 through 5. 6 tablet 01/30/2025 04/05/2025 Discontinued (Therapy completed)Start: 44-08-5980lnka 2 tablets by mouth onceZithromax 500 MG 2 tabs Orally once for 1 days Oct, Active5 ml bupivacaine hydrochloride 5 mg/ml injection (4 sources)Amide Local AnestheticStart: 04-05-2025 End: 08-88-5041jffpiebtozk PF (Marcaine) 0.5 % injection 1 mLStart: 04-05-2025 End: mL, Injection, Once PRN Procedure, Starting on Thu04/05/25 at 1516, For 1 dosecefTRIAXone (5 sources)Cephalosporin AntibacterialStart: 07-97-8427Xmulvjvuydq 500mg Oct, 500 mgciprofloxacin 500 mg oral tablet (2 sources)Quinolone AntimicrobialStart: 01-16-2025 End: 08-50-5400gzpo 1 tablet by mouth in the morningciprofloxacin (Cipro) 500 MG tablet Indications: Dysuria Take 1 tablet (500 mg) by mouth in the morning and 1 tablet (500 mg) before bedtime. Do all this for 7 days. 14 tablet 01/16/2025 01/18/2025 Discontinuedfexofenadine hydrochloride 180 mg oral tablet (12 sources)Histamine-1 Receptor AntagonistStart: 09-15-2024 End: 81-90-8088hmms 1 tablet by mouth once daily as neededfexofenadine (Simona) 180 MG tablet Indications: Chronic rhinosinusitis Take 1 tablet (180 mg) by m outh Daily as needed (allergies) 30 tablet 5 09/15/2024 04/05/2025 Discontinued (Therapy completed)lamoTRIgine 25 mg oral tablet (2 sources)Mood Stabilizer, Anti-epileptic AgentStart: 19-96-3222wuyv 2 tablets by mouth twice dailylamoTRIgine 25 MG Oral Tablet Take 2 tablets (50mg) twice a day. Quantity: 360 Refills: 3 Didier Beltrán MD Start : 01-Mar-2020 Active Start: 85-51-2575sptb 1 tablet by mouth twice daily, then take 2 tablets by mouthlamoTRIgine 25 MG Oral Tablet Take one tablet twice a day for one week then increase to two tabletstwice aday and stay at this dose. Quantity: 120 Refills: 5 Didier Beltrán MD Start : 14-Feb-2020 Activemeclizine hydrochloride 25 mg oral tablet (8 sources)AntiemeticStart: 06-15-2019 End: 80-60-5450casu 1 tablet by mouth three to four times daily as needed for dizzinessMeclizine 25 mg tablet Discontinued 25 MG PO 3 to 4 times per day as needed for dizziness 120 June 15, 2019 12:00am January 12, 2024 2:34pm1 ml methylPREDNISolone acetate 40 mg/ml injection (4 sources)CorticosteroidStart: 04-05-2025 End: 89-70-1893qhsnekNLMVGPCezeua acetate (DEPO-Medrol) injection 40 mgStart: 04-05-2025 End: 30-26-313851 mg, Intra-articular, Once PRN Procedure, Starting on 7/23/25 at 1516, For 1 dosemontelukast 10 mg oral tablet (17 sources)Leukotriene Receptor AntagonistStart: 11-15-2018 End: 08-91-3337sgnw 2 tablets by mouth once daily in the eveningMontelukast (Singulair) 10 mg Tablet Discontinued 20 MG PO Every evening November 15, 2018 1:00am January 12, 2024 2:34pmtake 1 tablet by mouth every twenty-four hours Singulair 5 MG 1 tablet Orally Once a day for 30 days Activeondansetron 4 mg disintegrating oral tablet (12 sources)Serotonin-3 Receptor AntagonistStart: 03-17-2025 End: 96-33-2641fsxz 1 tablet by mouth three times daily as needed for nausea and vomitingOndansetron 4 mg tablet,disintegrating Discontinued 4 MG PO Three times daily as needed for nausea and vomiting 14 March 17, 2025 12:00am May 19, 2025 10:21amStart: 79-50-0437uyhx 1 tablet by mouth every eight hours as needed for nausea and vomitingOndansetron 4 mg tablet,disintegrating Active 4 MG PO Q8H as needed for nausea and vomiting July 31, 2024 12:00amStart: 06-15-2019 End: 58-58-5301Gybcnmtcbvv 4 mg tablet,disintegrating Discontinued 4 MG PO every 6 to 8 hours as needed for nauseaand vomiting June 15, 2019 12:00am January 12, 2024 2:34pmoseltamivir 75 mg oral capsule (8 sources)Neuraminidase InhibitorStart: 11-15-2018 End: 27-78-7478gmmt 1 capsule by mouth twice dailyOseltamivir (Tamiflu) 75 mg capsule Discontinued 75 MG PO Twice daily 10 November 15, 2018 1:00am November 19, 2018 1:00am November 20, 2018 1:03ampredniSONE 10 mg oral tablet (6 sources)Start: 01-12-2024 End: 44-10-9776Rwfudqwnms 10 mg tablet Discontinued 10 MG PO January 12, 2024 12:00am July 31, 2024 9:21amsucralfate 1000 mg oral tablet (4 sources)Aluminum ComplexStart: 03-17-2025 End: 69-54-1031fnhl 1 tablet by mouth at bedtimeSucralfate (Carafate) 1 gram tablet Discontinued 1 GM PO before meals and at bedtime 56 14 March 17, 2025 12:00am May 19, 2025 10:21amStart: 34-63-7933upaq 1 tablet by mouth four times daily 1 hour(s) before bedtimeSucralfate (Carafate) 1 gram tablet Active 1 GM PO Four times daily 112 July 31, 2024 12:00am administer 1 hour before meals and at bedtimevalACYclovir 500 mg oral tablet (6 sources)Herpesvirus Nucleoside Analog DNA Polymerase Inhibitor, Herpes Simplex Virus Nucleoside Analog DNA Polymerase Inhibitor, Herpes Zoster Virus Nucleoside Analog DNA Polymerase InhibitorStart: 01-12-2024 End: 24-47-1609Ltnzhfjgemhz 500 mg tablet Discontinued 500 MG PO as needed January 12, 2024 12:00am July 9:21am Problems Active Problems Problem ClassificationProblemDateDocumented DateEpisodic/ChronicAbdominal hernia (9 sources)Hiatal hernia; Translations: [Diaphragmatic hernia without obstruction or gangrene]EpisodicAdministrative/social admission (2 sources)Dietary counseling and surveillance; Translations: [Dietary surveillance and counseling]05-67-1297TvpgrogwHfiamab dysrhythmias (8 sources)Palpitations; Translations: [Palpitations]51-79-1994Jfzvehlf Complications of surgical procedures or medical care (8 sources)Drug therapy finding; Translations: [Unspecified adverse effect of drug or medicament, initial encounter]55-18-6346ElxtowktTiynyaphy usually diagnosed in infancy, childhood, or adolescence (17 sources)Attention deficit hyperactivity disorder, predominantly inattentive type; Translations: [Other specified behavioral and emotional disorders with onset usually occurring in childhood and adolescence]Onset: 726343-54-4560 ChronicEsophageal disorders (20 sources)Lower esophageal ring; Translations: [Esophageal obstruction]Onset: 09-24-2021 Resolved: 14-27-2642AilxixlXqagprniklxrin ulcer (except hemorrhage) (20 sources)Ulcer of duodenum; Translations: [Duodenal ulcer, unspecified as acute or chronic, without hemorrhage or perforation]Onset: 157103-99-9130 ChronicGastroduodenal ulcer (except hemorrhage) (1 source)Personal history of peptic ulcer disease; Translations: [Personal history of peptic ulcer disease]Onset: 05-64-9699ItzjeoixWjjorplvtzfdt symptoms and ill-defined conditions (8 sources)Dysuria; Translations: [Dysuria]85-32-2327NpbmoimmHwifedxc; including migraine (20 sources)Migraine with aura; Translations: [Migraine without aura]Onset: 03-01-2024 Resolved: 367310-32-0014BaqqvusXxhplwia; including migraine (2 sources)Chronic headache disorder; Translations: [Chronic headaches]Episodic Hepatitis (20 sources)Autoimmune hepatitis; Translations: [Autoimmune hepatitis]Onset: 09-24-2021 Resolved: 36-74-6741QdafrtiHgevhualqqaep and screening for infectious disease (2 sources)Encounter for screening for respiratory tuberculosis; Translations: [Encounter for screening for respiratory tuberculosis]Onset: 29-54-5704Aslyhkxn Inflammatory diseases of female pelvic organs (5 sources)Acute vaginitis; Translations: [Acute vaginitis]86-83-0321Exisjjbp Intestinal infection (17 sources)Helicobacter-associated disease; Translations: [Other specified bacterial intestinal infections]43-96-7110YqkktfesHbxqd disorders and dislocations; trauma-related (13 sources)Chondromalacia of left patella; Translations: [Chondromalacia patellae, left knee]Onset: 006141-35-6011PveublsMrkbyep and fatigue (20 sources)Asthenia; Translations: [Weakness]Onset: 10-11-2021 Resolved: 84-74-0237HwnvufikJjtymzhbeeu chest pain (9 sources)Chest pain; Translations: [Other chest pain]EpisodicOther female genital disorders (3 sources)Other specified noninflammatory disorders of vaginaOnset: 10-23-2021 Resolved: 84-74-3840LprwwbqsJdztf gastrointestinal disorders (2 sources)H/O: abdominal hernia; Translations: [History of hiatal hernia] EpisodicOther gastrointestinal disorders (2 sources)H/O: liver disease; Translations: [History of hepatitis]EpisodicOther gastrointestinal disorders (9 sources)Heartburn; Translations: [Heartburn]EpisodicOther gastrointestinal disorders (9 sources)Constipation; Translations: [Constipation, unspecified]EpisodicOther gastrointestinal disorders (18 sources)Dysphagia; Translations: [Dysphagia, unspecified]EpisodicOther gastrointestinal disorders (9 sources)Eructation; Translations: [Burping]EpisodicOther gastrointestinal disorders (10 sources)Flatulence; Translations: [Gas]Onset: 12-16-2021 Resolved: 90-05-9179OyouasypHqksu gastrointestinal disorders (9 sources)Diarrhea; Translations: [Diarrhea, unspecified]EpisodicOther liver diseases (20 sources)Fatty (change of) liver, not elsewhere classified; Translations: [Other chronic nonalcoholic liver disease]Onset: hronic Other nervous system disorders (2 sources)Sensory disorder; Translations: [Sensory disturbance]EpisodicOther nervous system disorders (2 sources)Numbness of face; Translations: [Facial numbness]EpisodicOther nutritional; endocrine; and metabolic disorders (9 sources)Body mass index 30+ - obesity; Translations: [Body mass index (BMI) 32.0-32.9, adult]ChronicOther nutritional; endocrine; and metabolic disorders (18 sources)Obese class I; Translations: [Body mass index (BMI) 31.0-31.9, adult]ChronicOther nutritional; endocrine; and metabolic disorders (2 sources)Obesity; Translations: [Obesity, unspecified]ChronicOther nutritional; endocrine; and metabolic disorders (20 sources)Obesity caused by energy imbalance; Translations: [Other obesity due to excess calories]Onset: 370558-37-5060WigwylsYujbo nutritional; endocrine; and metabolic disorders (6 sources)Obese class II; Translations: [Obesity, unspecified]96-96-3091Nwuofgg Other nutritional; endocrine; and metabolic disorders (1 source)Obesity, unspecified; Translations: [Obesity, unspecified]01-12-2024 ChronicOther nutritional; endocrine; and metabolic disorders (9 sources)Loss of appetite; Translations: [Anorexia]EpisodicOther skin disorders (2 sources)H/O: skin disorder; Translations: [History of sebaceous cyst]Episodic Other upper respiratory disease (20 sources)Allergic rhinitis caused by mold; Translations: [Other allergic rhinitis]Onset: 670759-63-5203HjfnzoiMljbt upper respiratory infections (20 sources)Chronic sinusitis, unspecified; Translations: [Chronic rhinitis] Onset: 775072-03-9551EqjfcoyCztebxwo codes; unclassified (2 sources)Sensory symptoms; Translations: [Hemisensory deficit]Episodic Superficial injury; contusion (4 sources)Contusion, knee and lower leg; Translations: [Contusion of left knee, initial encounter]54-12-8320Llmyeoam Past or Other Problems Problem ClassificationProblemDateDocumented DateEpisodic/ChronicAbdominal pain (20 sources)Abdominal pain; Translations: [Unspecified abdominal pain]Onset: 09-24-2021 Resolved: 98-58-1434DgqwpyeqFmeeofihu and vision defects (20 sources)Visual disturbance; Translations: [Unspecified visual disturbance] Onset: 637849-80-4425OyxwzccuOpvolbleho associated with dizziness or vertigo (20 sources)Dizziness; Translations: [Dizziness and giddiness]Onset: 04-07-2023 37-59-6994JvcdwffaGqsrw and electrolyte disorders (16 sources)Dehydration; Translations: [Dehydration]Onset: EpisodicGastritis and duodenitis (17 sources)Duodenitis; Translations: [Duodenitis without bleeding]Onset: 433304-32-7544XfyamjnrNbrkiu and vomiting (20 sources)Nausea; Translations: [Nausea]Onset: 10-11-2021 Resolved: 79-77-1334XxyxvbzuPryzwqvadsgmke (20 sources)Osteoarthritis of right knee joint; Translations: [Unilateral primary osteoarthritis, right knee]Onset: 04-07-2023 Resolved: 601565-32-8068PhxvgvaFfmjc connective tissue disease (20 sources)Plantar fasciitis; Translations: [Plantar fascial fibromatosis] Onset: 915848-10-4058GttrptlePwupo connective tissue disease (20 sources)Deformity of lower limb; Translations: [Contracture of muscle, right lower leg]Onset: 079745-17-4593AkfekfaxUvwyq female genital disorders (20 sources)Burning sensation of vagina; Translations: [Unspecified condition associated with female genital organs and menstrual cycle]Onset: 04-07-2023 Resolved: 011525-86-1920NaaxxujoPmuus gastrointestinal disorders (1 source)HeartburnOnset: 09-24-2021 Resolved: 19-93-5880EyvklujhYltny gastrointestinal disorders (3 sources)Dysphagia, unspecifiedOnset: 09-24-2021 Resolved: 87-16-8960UvnlghneUyrsr lower respiratory disease (4 sources)Respiratory disorder, unspecified; Translations: [RESPIRATORY DISORDER UNSPECIFIED]Onset: 36-84-5268CtbthqjpWvnxo nervous system disorders (2 sources)Nonspecific paroxysmal spell; Translations: [Nonspecific paroxysmal spell]Other non-traumatic joint disorders (11 sources)Pain in left knee; Translations: [Pain in joint, lower leg]Onset: 851613-99-7594FtxomhfcXgrei non-traumatic joint disorders (8 sources)Joint pain; Translations: [Pain in unspecified joint]Onset: 060298-05-5894VquslicqGjtyo screening for suspected conditions (not mental disorders or infectious disease) (20 sources)Patient encounter status; Translations: [Encounter for screening for lipoid disorders]Onset: [id number] upper respiratory infections (20 sources)Pharyngitis; Translations: [Acute pharyngitis, unspecified]Onset: 08-31-2023 Resolved: [id number] codes; unclassified (1 source)High risk heterosexual behaviorOnset: 10-23-2021 Resolved: 38-62-2328PdatsitaLhbstatc codes; unclassified (20 sources)Disorder of head; Translations: [Other general symptoms and signs] Onset: 04-07-2023 Resolved: 417994-83-2373FlqotmagYjhpgvsj codes; unclassified (20 sources)Bilateral lower limb edema; Translations: [Localized edema]Onset: 316616-39-9938ArnushjrKbqevszqxcgv (2 sources)Acute pain of left uttv01-86-6551FGCTZWC: Highlighted row has not occurred!Residual codes; unclassified (8 sources)DiseaseEpisodic Results Test NameValueInterpretationReference RangeFacilityLon 06-07-2025L Specimen: [id number] Received: 06/07/25 Status: FELIPE Eckert Num: [id number] Spec Type: Surgical Subm Dr: Melissa Hope DO Tissues: A Small Intestine - Biopsy/Polyp (SMALL BOWEL BX) B Gastric Biopsy (GASTRIC BX) C Esophagus Biopsy (DISTAL ESOPHAGUS) D Esophagus Biopsy (PROXIMAL ESOPHAGUS) Procedures: HE/Audi, Gross/Micro L4/4, H PYLORI, IHC First AB Age/ Patient Sex Location Account Attending Physician Trudy Wilder 49/F [id number] Melissa Hope DO SPEC NUM: [id number] RECD: 06/07/25 STATUS: FELIPE ECKERT NUM: [id number] CE: 06/07/[address] [facility] [address]: Melissa Hope DO ENTERED: 06/07/25 [facility] DR: SPEC TYPE: Surgical DEPT: S ENTERED BY: [id number] RECV BY: [id number] ORDERED: HE/8, Gross/Micro L4/4, H PYLORI, IHC First AB ORDERED: HE/8, Gross/Micro L4/4, H PYLORI, IHC First AB Pathological Diagnosis A. Small bowel biopsy: - Small intestinal mucosa with no significant histopathologic findings; histologic features of celiac disease not identified. B. Gastric biopsy: - Minimal chronic gastritis; negative for Helicobacter, metaplasia or dysplasia. C. Distal esophagus biopsy: - Squamous epithelium with focal eosinophilic inflammation (up to 10 per high- power field). D. Proximal esophagus biopsy: - Squamous epithelium with severe eosinophilic inflammation (up to 90 per high- power field). Comment: The findings in parts C and D could be histologically compatible with eosinophilic esophagitis. Clinical correlation is suggested. Specimen: [id number] Received: 06/07/25 Status: FELIPE Hendersondebra Num: [id number] Spec Type: Surgical Subm Dr: Melissa Hope DO Tissues: A Small Intestine - Biopsy/Polyp (SMALL BOWEL BX) B Gastric Biopsy (GASTRIC BX) C Esophagus Biopsy (DISTAL ESOPHAGUS) D Esophagus Biopsy (PROXIMAL ESOPHAGUS) Procedures: HE/8, Gross/Micro L4/4, H PYLORI, IHC First AB Patient: Trudy Wilder [id number] (Continued) Specimen: [id number] Received: 06/07/25 (Continued) Signed (signature on file) Phi Landis JR, MD 06/09/25801 Specimen: [id number] Received: 06/07/25 Status: FELIPE Eckert Num: [id number] Spec Type: Surgical Subm Dr: Melissa Hope DO Tissues: A Small Intestine - Biopsy/Polyp (SMALL BOWEL BX) B Gastric Biopsy (GASTRIC BX) C Esophagus Biopsy (DISTAL ESOPHAGUS) D Esophagus Biopsy (PROXIMAL ESOPHAGUS) Procedures: HE/8, Gross/Micro L4/4, H PYLORI, IHC First AB Patient: Trudy Wilder [id number] (Continued) Specimen: [id number] Received: 06/07/25-4423 (Continued) Clinical Information Ulcers, GERD, part A rule out celiac disease, Part B rule out H. pylori, Part C?Part D rule out eosinophilic esophagitis Gross Description Tissue part A is received in formalin labeled with the patients date of , and [place], small bowel BX are 2 lema-steel, focally erythematous, friable, 0.3 cm each in greatest dimension tissue bits. The specimen is entirely submitted in a single cassette. (1, ns, [id number] A) JG Part B is received in formalin labeled with the patients date of , and [place], gastric BX is a lema-steel, focally erythematous, friable, 0.4 cm in greatest dimension tissue bit. The specimen is entirely submitted in a single cassette. (1, ns, [id number] B) JG Part C is received in formalin labeled with the patients date of , and [place], distal esophagus BX are 3 pale steel, focally erythematous, feathery, 0.2, 0.3 and 0.4 cm in greatest dimension tissue bits. The specimen is entirely submitted in a single cassette. (1, ns, [id number] C) JG Part D is received in formalin labeled with the patients date of , and [place], proximal esophagus BX are 2 pale steel, focally erythematous, feathery, 0.2 and 0.3 cm in greatest dimension tissue bits. The specimen is entirely submitted in a single cassette. (1, ns, [id number] D) Microscopic Description A?D. Microscopic examination was completed. B.Immunohistochemical stain for Helicobacter p (more content not included)... NormalLakeland Regional Health Medical Center Physician GroupHEPATITIS B SURFACE ANTIBODY QUANTon 62-96-1299HHSQKFTTF B VIRUS SURFACE AB (MIU/ML) IN LEXWN806.49 mIU/mLNormal [facility] HospitalComment on above:Result Comment: INTERPRETATION: NONREACTIVE <8.00 mIU/mL INDETERMINATE 8.00 - 12.00 mIU/mL REACTIVE >12 mIU/mLPerformed By: #### [id number] #### [facility] ([facility]) [address] [place] [address]FV KNEE LEFT WO IV CONTRASTon 89-37-5550RB KNEE LEFT WO IV CONTRASTEXAMINATION/TECHNIQUE: MR KNEE LEFT WO IV CONTRAST HISTORY: Left knee pain after fall. History of prior arthroscopy 10 years ago. COMPARISON: None RESULT: Limitations from patient [...] tendon intact. Popliteus intact. BONES AND MARROW: No evidence of fracture or bone marrow replacing process. MUSCLES: Muscle bulk and signal intensity are normal. JOINT FLUID AND SYNOVIUM: No joint effusion. No synovitis. Trace Butler's cyst. OTHER: Patella mary. Shallow trochlear morphology. Edema signal in the infrapatellar fat pad. Tibial tuberosity to trochlear groove (TT-TG) distance measures 14 mm. Medial patellofemoral retinaculum/ligament appears intact. IMPRESSION: Probable changes from prior partial medial meniscectomy, without evidence for recurrent tear. Findings associated with patellar instability/maltracking. ELECTRONICALLY SIGNED BY: Brandon Malave MDNormalNot AvailableALL CBC WITH AUTO DIFFon 49-48-3437FKBUMMWQI ABSOLUTE AUTO0.1NOMS HealthcareBasophils/100 WBC (Bld)0.7 %0.2 - 2.0 %NOMS HealthcareEosinophils/100 WBC (Bld)8 %High0.9 - 7.0 % NOMS HealthcareErythrocyte distribution width (RBC) [Ratio]13 %11.0 - 15.0 %[facility]S HealthcareHematocrit (Bld) [Volume fraction]39 %36.0 - 48.0 %[facility] Hemoglobin (Bld) [Mass/Vol]13.6 g/dL12.0 - 16.0 g/dLPutnam County Memorial HospitalIMMATURE GRANULOCYTES ABS AUTO0.02NOSaint Joseph Hospital of KirkwoodImmature granulocytes/100 WBC (Bld)0.3 % 0.0 - 0.5 %[facility] Memorial HospitalInterpretation and review of laboratory results AbnormalPutnam County Memorial HospitalLYMPHOCYTES ABSOLUTE AUTO2.7[facility] Lymphocytes/100 WBC (Bld)35 %20.5 - 60.0 %[facility] HospitalH (RBC) [Entitic mass]30.9 pg26.7 - 34.0 pgRipley County Memorial HospitalHC (RBC) [Mass/Vol]34.9 g/dL29.9 - 35.2 g/dLRipley County Memorial HospitalV (RBC) [Entitic vol]88.6 fL81.0 - 99.0 fLPutnam County Memorial HospitalMONOCYTES ABSOLUTE AUTO0.5[facility] HospitalMonocytes/100 WBC (Bld)5.9 % 1.7 - 12.0 %[facility] HospitalNEUTROPHILS ABSOLUTE AUTO3.9[facility] Neutrophils/100 WBC (Bld)50.1 %43.0 - 75.0 %[facility] Memorial HospitalPlatelet mean volume (Bld) [Entitic vol]10.3 fL9.5 - 13.5 fLPutnam County Memorial HospitalTB EO #0.6NOMS [facility] TBH BNF016TMLMSt. Louis Behavioral Medicine Institute RBC4.4NOSaint Joseph Hospital of KirkwoodTB WBC7.7[facility] CLINISYNCPutnam County Memorial HospitalNo Panel Informationon 97-21-5207KzyflzfLEILA Brock 04/05/2025 4:26 PM L Inj/Asp: L [...] and draped in the usual sterile fashion. UNC Health RexAlanine aminotransferase [Enzymatic activity/volume] in Serum or PlasmaOrdered By: Rosalia Posada on 54-61-7437TWC [Catalytic activity/Vol]16 U/LNormal7-52Par[facility] HospitalComment on above:Performed By: #### HEPATIC, MG, CBC, LIPASE, BMP ####[address] [place] [address] USAAlbumin [Mass/volume] in Serum or Plasma by Bromocresol green (BCG) dye binding methoOrdered By: Rosalia Posada on 63-75-9113Zbxrmdr BCG dye [Mass/Vol]4.5 g/dL3.5-5.7FSelect Medical Specialty Hospital - CantonAlkaline phosphatase [Enzymatic activity/volume] in Serum or PlasmaOrdered By: Rosalia Posada on 55-89-1870OHR [Catalytic activity/Vol]101 U/L Qvcusg70-384AlpzrdziuParma Community General HospitalComment on above:Performed By: #### HEPATIC, MG, CBC, LIPASE, BMP ####[address] [place] [address] USAAppearance of UrineOrdered By: Rosalia Posada on 09-91-9618Harvnvgycv (U)ClearNormalClearParma Community General HospitalComment on above:Order Comment: Name Collection Type:: Clean-Voided MidstreamPerformed By: #### CUU, ADDONUAPLUS ####[address] USAAspartate aminotransferase [Enzymatic activity/volume] in Serum or PlasmaOrdered By: Rosalia Posada on 54-83-1257TOD [Catalytic activity/Vol]18 U/GUvuyiw22-76QitmyzecyParma Community General Hospital Comment on above:Performed By: #### HEPATIC, MG, CBC, LIPASE, BMP ####[address] [place] [address] USABacteria [Presence] in Urine by AutomatedOrdered By: Rosalia oPsada on 79-91-6119Smtkfipg Auto Ql (U) Rare [HPF]None SeenParma Community General HospitalBasic Metabolic Panelon 79-70-3705Iforjntdry Clr Calc Hxnmktkr571.13[facility] Comment on above:Performed By: #### HEPATIC, MG, CBC, LIPASE, BMP ####[address] [address] USAGFR/1.73 sq M.predicted MDRD (S/P/Bld) [Vol rate/Area]mL/min/{1.73_m2}NormalThe [facility] Physician GroupComment on above:Performed By: #### HEPATIC, MG, CBC, LIPASE, BMP ####[place] [id number] [place] Basophils [#/volume] in Blood by Automated countOrdered By: Rosalia Posada on 86-53-2259Rwmizlucr (Bld) [#/Vol]0.1 10*3/uLNormal0.0-0.2FSelect Medical Specialty Hospital - CantonComment on above:Result Comment: PERFORMED BY: [facility] [address] [facility] CENTERLukasDANA VIL[place] [id number] PATHOLOGIST ELEVATOR MECHANIC ADDY HESTER M.D.Performed By: #### HEPATIC, MG, CBC, LIPASE, BMP ####[place] [id number] [place] Basophils/100 leukocytes in Blood by Automated countOrdered By: Rosalia Posada on 60-17-0381Dfqygnlzo/100 WBC (Bld)0.9 %Normal.[facility] Comment on above:Performed By: #### HEPATIC, MG, CBC, LIPASE, BMP ####[id number] USABilirubin Test strip Ql (U)Ordered By: Rosalia Posada on 55-98-7485Uutntzfqx Ql (U)NegativeNegative [facility] HospitalBilirubin.direct [Mass/volume] in Serum or PlasmaOrdered By: Rosalia Posada on 26-13-0222Jpujfnrbo.direct [Mass/Vol]0.10 mg/dL0.03-0.18FSelect Medical Specialty Hospital - CantonBilirubin.total [Mass/volume] in Serum or PlasmaOrdered By: Rosalia Posada on 50-99-6919Tbvrcezyy [Mass/Vol]0.6 mg/dLNormal0.3-1.0Fire[facility] Regional Medical CenterComment on above:Performed By: #### HEPATIC, MG, CBC, LIPASE, BMP ####[facility] [address] [place] [address] USACT abdomen pelvis wo conon 53-91-9565ZN abdomen pelvis wo [facility] Main Portal [address] [place] [address] CT Scan Report Signed Patient: Trudy Wilder MR#: [id number] 89 : 1975 Acct:[id number] Age/Sex: 49 / F ADM Date: 03/17/25 Loc: ER Room: Type: [facility] ER Attending Dr: Copies to: CHELSY Leslie Ordering Provider: CHELSY Leslie Date of Service: 03/17/25 CT/CT abdomen pelvis wo con: Abdominal Pain CT ABDOMEN AND PELVIS WITHOUT INTRAVENOUS CONTRAST: CLINICAL HISTORY: Epigastric pain for days, nausea COMPARISON: 07/31/2024 TECHNIQUE: Spiral images were obtained through the abdomen and pelvis without intravenous contrast. This CT exam was performed using one or more following dose reduction techniques: Automated exposure control, adjustment of the mA and/or kV according to patient size, or use of iterative reconstruction technique. FINDINGS: Lung Bases: [Minimal hypoventilatory changes] Organs:Liver, gallbladder, spleen, adrenals, kidneys, and pancreas are unremarkable . No nephrolithiasis . No hydronephrosis.[ GI: Mild retained stool within colon. No bowel obstruction. Appendix is normal.[ Pelvis:[Bladder unremarkable. Uterus absent. No adnexal mass.] Peritoneum/Retroperitoneum:No free air or free fluid. There are calcifications adjacent the distal ureters identified[ Abd wall/Bones:No suspicious osseous lesion.[ CT/CT abdomen pelvis wo con IMPRESSION: Negative for nephrolithiasis/obstructive uropathy. Negative acute inflammatory process or bowel obstruction Impression dictated by: Jeovanny Comer M.D. 03/17/2025 4:51 PM Dictation Location: [place] [address] Transcribed By: [facility] 03/17/25 1651 Dictated By: Jeovanny Comer MD 03/17/25 1646 Signed By: 03/17/25 165NoFrye Regional [facility] Physician GroupCalcium [Mass/volume] in Serum or PlasmaOrdered By: Rosalia Posada on 07-47-6034Xysidgp [Mass/Vol]9.5 mg/dL Normal8.6-10.3FSelect Medical Specialty Hospital - CantonComment on above:Performed By: #### HEPATIC, MG, CBC, LIPASE, BMP ####[place] [address] USACarbon dioxide, total [Moles/volume] in Serum or PlasmaOrdered By: Rosalia Posada on 01-30-7147EJ3 [Moles/Vol]25.4 mmol/LNormal 21.0-31.0[facility] HospitalComment on above:Performed By: #### HEPATIC, MG, CBC, LIPASE, BMP ####[place] [address] USAChloride [Moles/volume] in Serum or PlasmaOrdered By: Rosalia Posada on 20-86-8727Icqmvlsk [Moles/Vol]107 mmol/WHbdgsd17-632 [facility] HospitalComment on above:Performed By: #### HEPATIC, MG, CBC, LIPASE, BMP ####[place] [id number] USAColor of Urine by AutoOrdered By: Rosalia Posada on 08-92-6350Zcoqb (U)Light-yellowNormalYellowParma Community General Hospital Comment on above:Order Comment: Name Collection Type:: Clean-Voided Midstream Performed By: #### CUU, ADDONUAPLUS ####[address] USAComplete Blood Count Auto Diffon 01-69-0854Oyqw Corpuscular HGB Conc34.2 g/fRCtyqri51.0-35.0The [facility] Hospital Of Chester CountyComment on above:Performed By: #### HEPATIC, MG, CBC, LIPASE, BMP ####[place] [id number] USANRBC%0.1 /100{WBC} Normal0-0.5The [facility] Physician GroupComment on above:Performed By: #### HEPATIC, MG, CBC, LIPASE, BMP ####[address] [address] USAWhite Blood Count9.0 [CFU]/mLNormal3.8-11.6The [facility] Physician GroupComment on above:Performed By: #### HEPATIC, MG, CBC, LIPASE, BMP ####[place] [address] USACreatinine [Mass/volume] in Serum or PlasmaOrdered By: Rosalia Posada on 93-98-9425Wqffnmnyqy [Mass/Vol]0.75 mg/dLNormal0.60-1.20[facility] HospitalComment on above:Performed By: #### HEPATIC, MG, CBC, LIPASE, BMP ####[place] [address] [place] Dipstick and Microscopicon 70-27-6917Xzpvonng,UrineRareNormalNone SeenThe [facility] Physician GroupComment on above:Order Comment: Name Collection Type:: Clean-Voided MidstreamPerformed By: #### CUU, ADDONUAPLUS ####[address] USABilirubin,UrineNegativeNormal NegativeThe [facility] Physician GroupComment on above:Order Comment: Name Collection Type:: Clean-Voided MidstreamPerformed By: #### CUU, ADDONUAPLUS ####[address] USAGlucose Ql (U)NormalNormalNormalThe [facility] Physician GroupComment on above:Order Comment: Name Collection Type:: Clean-Voided MidstreamPerformed By: #### CUU, ADDONUAPLUS ####[address] USAHyaline Casts,Qpwuq0-1Bzlypw8-8Ucd [facility] Physician GroupComment on above:Order Comment: Name Collection Type:: Clean-Voided MidstreamPerformed By: #### CUU, ADDONUAPLUS ####[address], [address] USAMucus,UrineRareNormalThe [facility] Comment on above:Order Comment: Name Collection Type:: Clean-Voided Midstream Result Comment: PERFORMED BY: [address] [place] [address] PATHOLOGIST ELEVATOR MECHANIC ADDY HESTER M.D.Performed By: #### CUU, ADDONUAPLUS ####[address] USANitrite,UrineNegativeNormal NegativeThe [facility] Physician GroupComment on above:Order Comment: Name Collection Type:: Clean-Voided MidstreamPerformed By: #### CUU, ADDONUAPLUS ####[address] USAOccult Blood,UrineNegativeNormalNegativeThe [facility] Physician GroupComment on above: Order Comment: Name Collection Type:: Clean-Voided MidstreamResult Comment: PERFORMED BY: [address]LukasDA[address] [id number] PATHOLOGIST ELEVATOR MECHANIC ADDY HESTER M.D.Performed By: #### CUU, ADDONUAPLUS ####[address] USAProtein,UrineNegativeNormal NegativeThe [facility] Physician GroupComment on above:Order Comment: Name Collection Type:: Clean-Voided MidstreamPerformed By: #### CUU, ADDONUAPLUS ####[address], [place] [place] RBC,Ediqi7-2Gjfgqy0-3Xzn [facility] Physician GroupComment on above:Order Comment: Name Collection Type:: Clean-Voided MidstreamPerformed By: #### CUU, ADDONUAPLUS ####[address] USASpecificy [place],Urine1.522Xcjmia6.001-1.030The [facility] Comment on above:Order Comment: Name Collection Type:: Clean-Voided Midstream Performed By: #### CUU, ADDONUAPLUS ####[address], [place] USASquamous Epithelial Cell,Tkszi00-36Bhbzbm7-1Aqq [facility] Physician GroupComment on above:Order Comment: Name Collection Type:: Clean-Voided MidstreamPerformed By: #### CUU, ADDONUAPLUS ####[address] USAUrobilinogen,UrineNormalNormal NormalThe [facility] Physician GroupComment on above:Order Comment: Name Collection Type:: Clean-Voided MidstreamPerformed By: #### CUU, ADDONUAPLUS ####[address] [place] WBC,Hjxwm28-08Bhznop5-9Ubd [facility] Physician GroupComment on above:Order Comment: Name Collection Type:: Clean-Voided MidstreamPerformed By: #### CUU, ADDONUAPLUS ####[address] USAEosinophils [#/volume] in Blood by Automated countOrdered By: Rosalia Posada on 05-65-9107Gtgagcfvqmv (Bld) [#/Vol]0.5 10*3/uLHigh0.0-0.45[facility] HospitalComment on above:Performed By: #### HEPATIC, MG, CBC, LIPASE, BMP ####[address] [address] [facility] Eosinophils/100 leukocytes in Blood by Automated countOrdered By: Rosalia Posada on 48-46-8383Lzrojrtbwef/100 WBC (Bld)5.5 %Normal.[facility] HospitalComment on above:Performed By: #### HEPATIC, MG, CBC, LIPASE, BMP ####[address] [address] [facility] Epithelial cells.squamous [#/area] in Urine sediment by Automated countOrdered By: Rosalia Posada on 07-81-4194Ghekenwuup cells.squamous Auto (Urine sed) [#/Area]10-19 [HPF]High0-2FSelect Medical Specialty Hospital - CantonErythrocyte distribution width [Ratio] by Automated countOrdered By: Rosalia Posada on 78-06-9914Qleskaibbie distribution width (RBC) [Ratio]13.9 %Mzutkq73.9-15.3 [facility] HospitalComment on above:Performed By: #### HEPATIC, MG, CBC, LIPASE, BMP ####[facility] [place] [address] USAErythrocytes [#/area] in Urine sediment by Automated count Ordered By: Rosalia Posada on 79-51-5486OVM Auto (Urine sed) [#/Area]1-2 [HPF]0-4 [facility] HospitalErythrocytes [#/volume] in Blood by Automated countOrdered By: Rosalia Posada on 37-84-2801CHZ (Bld) [#/Vol]4.62 10*6/uLNormal 3.60-5.00[facility] HospitalComment on above:Performed By: #### HEPATIC, MG, CBC, LIPASE, BMP ####[address] [address] USAGlucose [Mass/volume] in Serum or PlasmaOrdered By: Rosalia Posada on 20-87-9354Ipqrxoi [Mass/Vol]83 mg/oULgaeri38-746ZfnwsgchnParma Community General HospitalComment on above:ADA recommended reference rangeRandom Glucose Reference Range is dependent on time and content of last meal. Glucose of more than 200 mg/dL in a nonstressed, ambulatory subject supports the diagnosisof Diabetes Mellitus.Result Comment: Random Glucose Reference Range is dependent on time and content of last meal. Glucose of more than 200 mg/dL in a nonstressed, ambulatory subject supports the diagnosis of Diabetes Mellitus. ADA recommended reference rangePerformed By: #### HEPATIC, MG, CBC, LIPASE, BMP ####[facility] [place] [address] USAGlucose [Mass/volume] in Urine by Test stripOrdered By: Rosalia Posada on 03-17-2025 Glucose Test strip (U) [Mass/Vol]Normal mg/dLNormalParma Community General HospitalHematocrit [Volume Fraction] of Blood by Automated countOrdered By: Rosalia Posada on 32-86-4642Jkdondhbhn (Bld) [Volume fraction]41.1 %Vatmlb18.0-46.4 [facility] HospitalComment on above:Performed By: #### HEPATIC, MG, CBC, LIPASE, BMP ####[place] [address] USAHemoglobin Test strip Ql (U)Ordered By: Rosalia Posada on 61-74-0052Uqgeetpsks Ql (U)NegativeNegativeParma Community General Hospital Hemoglobin [Mass/volume] in BloodOrdered By: Rosalia Posada on 03-17-2025 Hemoglobin (Bld) [Mass/Vol]14.0 g/aBNygnwd10.8-15.4FSelect Medical Specialty Hospital - CantonComment on above:Performed By: #### HEPATIC, MG, CBC, LIPASE, BMP ####[place] [address] USAHepatic Panelon 54-48-5281Kwmpttw [Mass/Vol]4.5 g/dLNormal3.5-5.7The [facility] Physician GroupComment on above:Performed By: #### HEPATIC, MG, CBC, LIPASE, BMP ####[place] [address] [place] Bilirubin,Indirect0.5 mg/dLNormalThe [facility] Physician GroupComment on above: Performed By: #### HEPATIC, MG, CBC, LIPASE, BMP ####[place] [address] USABilirubin.indirect [Mass/Vol]0.10 mg/dLNormal0.03-0.18The [facility] Physician GroupComment on above:Performed By: #### HEPATIC, MG, CBC, LIPASE, BMP ####[place] [address] USAHyaline casts [#/area] in Urine sediment by Automated countOrdered By: Rosalia Posada on 14-92-2714Jfjsdjt casts Auto (Urine sed) [#/Area]0-8 [LPF]0-8[facility] HospitalKetones [Presence] in Urine by Test stripOrdered By: Rosalia Posada on 74-81-9438Evodzby Ql (U)Negative NormalNegHighland District HospitalComment on above:Order Comment: Name Collection Type:: Clean-Voided MidstreamPerformed By: #### CUU, ADDONUAPLUS ####[address] [place], [place] [place] Leukocyte esterase [Presence] in Urine by Test stripOrdered By: Rosalia Posada on 25-73-2281Ognlyllbp esterase Test strip Ql (U)3+NormalNegHighland District HospitalComment on above:Order Comment: Name Collection Type:: Clean-Voided MidstreamPerformed By: #### CUU, ADDONUAPLUS ####[address] [place], [place] USALeukocytes [#/area] in Urine sediment by Automated countOrdered By: Rosalia Posada on 95-72-6080SHB Auto (Urine sed) [#/Area]10-19 [HPF]High0-4FSelect Medical Specialty Hospital - Canton Leukocytes [#/volume] corrected for nucleated erythrocytes in Blood by Automated counOrdered By: Rosalia Posada on 07-25-1866SAW corrected for nucl RBC Auto (Bld) [#/Vol]9.0 10*3/uL3.8-11.6FSelect Medical Specialty Hospital - CantonLeukocytes [#/volume] in Blood by Automated countOrdered By: Rosalia Posada on 63-82-8290MQS (Bld) [#/Vol]9.0 10*3/uLNormal3.8-11.6FSelect Medical Specialty Hospital - CantonComment on above:Performed By: #### HEPATIC, MG, CBC, LIPASE, BMP ####[facility] [place] [address] USALipase [Enzymatic activity/volume] in Serum or PlasmaOrdered By: Rosalia Posada on 34-71-9187Wsfbjk [Catalytic activity/Vol]27.0 U/MQluknl69.0-82.0[facility] Comment on above:Result Comment: PERFORMED BY: [facility] [address] [id number] PATHOLOGIST ELEVATOR MECHANIC ADDY HESTER M.D.Performed By: #### HEPATIC, MG, CBC, LIPASE, BMP ####[place] [id number] [place] [facility] Lymphocytes [#/volume] in Blood by Automated countOrdered By: Rosalia Posada on 90-37-2493Cohqqxxfqxq (Bld) [#/Vol]2.9 10*3/uLNormal1.00-4.8[facility] HospitalComment on above:Performed By: #### HEPATIC, MG, CBC, LIPASE, BMP ####[place] [id number] [place] Lymphocytes/100 leukocytes in Blood by Automated countOrdered By: Rosalia Posada on 94-32-1736Zwuekdcvogb/100 WBC (Bld)31.9 %Normal.[facility] HospitalComment on above:Performed By: #### HEPATIC, MG, CBC, LIPASE, BMP ####[place] [id number] [facility] [place] [Entitic mass] by Automated countOrdered By: Rosalia Posada on 88-08-8340XRI (RBC) [Entitic mass]30.4 rpKxmkde33.7-34.3FSelect Medical Specialty Hospital - Canton Comment on above:Performed By: #### HEPATIC, MG, CBC, LIPASE, BMP ####[address] [address] [facility] Auto (RBC) [Mass/Vol]Ordered By: Rosalia Posada on 08-91-2003SPCZ (RBC) [Mass/Vol]34.2 g/dL 32.0-35.0[facility] HospitalMCV [Entitic volume] by Automated countOrdered By: Rosalia Posada on 98-14-9872NVU (RBC) [Entitic vol]88.9 fLNormal 80-100[facility] HospitalComment on above:Performed By: #### HEPATIC, MG, CBC, LIPASE, BMP ####[address] [address] USAMagnesium [Mass/volume] in Serum or PlasmaOrdered By: Rosalia Posada on 39-25-5583Syrecllhg [Mass/Vol]1.9 mg/dLNormal1.9-2.7 [facility] HospitalComment on above:Performed By: #### HEPATIC, MG, CBC, LIPASE, BMP ####[address] [address] USAMonocytes [#/volume] in Blood by Automated countOrdered By: Rosalia Posada on 48-06-8452Nbrmtxxkc (Bld) [#/Vol]0.5 10*3/uLNormal0.0-0.8 [facility] HospitalComment on above:Performed By: #### HEPATIC, MG, CBC, LIPASE, BMP ####[place] [id number] [place]AMonocytes/100 leukocytes in Blood by Automated count Ordered By: Rosalia Posada on 74-77-0055Tsotlchcz/100 WBC (Bld)5.4 %Normal. [facility] HospitalComment on above:Performed By: #### HEPATIC, MG, CBC, LIPASE, BMP ####[place] [id number] USAMucus [Presence] in Urine by AutomatedOrdered By: oRsalia Posada on 61-62-3226Hupbb Auto Ql (U)Rare [LPF][facility] Neutrophils [#/volume] in Blood by Automated countOrdered By: Rosalia Posada on 43-16-9898Xhecgdugkis (Bld) [#/Vol]5.1 10*3/uLNormal1.8-7.7FSelect Medical Specialty Hospital - CantonComment on above:Performed By: #### HEPATIC, MG, CBC, LIPASE, BMP ####[address] [address] [place] Neutrophils/100 leukocytes in Blood by Automated countOrdered By: Rosalia Posada on 09-49-1512Luwziimkfix/100 WBC (Bld)56.3 %Normal.[facility] HospitalComment on above:Performed By: #### HEPATIC, MG, CBC, LIPASE, BMP ####[place] [address] [place] [phone] USANitrite Test strip Ql (U)Ordered By: Rosalia Posada on 82-97-8213Ncyzsyq Ql (U)Negative NegativeParma Community General HospitalNo Panel InformationOrdered By: Rosalia Posada on 63-46-3043Yhfngatlj GFR (CKD-EPI)> 60.0 mL/MinParma Community General HospitalPharmacy Creatinine Clearance (Iodb785.13[facility] HospitalNucleated erythrocytes [Presence] in Blood by Automated count Ordered By: Rosalia Posada on 96-26-2353Rmyhmgtwb RBC Auto Ql (Bld)0.1 /100{WBC} 0-0.5FSelect Medical Specialty Hospital - CantonPlatelet mean volume [Entitic volume] in Blood by Automated countOrdered By: Rosalia Posada on 48-44-8600Azdvnjbh mean volume (Bld) [Entitic vol]8.9 fLNormal6.3-10.7FSelect Medical Specialty Hospital - [facility]on Comment on above:Performed By: #### HEPATIC, MG, CBC, LIPASE, BMP ####[place] [phone] USAPlatelets [#/volume] in Blood by Automated countOrdered By: Rosalia Posada on 60-58-5924Yjpvssngz (Bld) [#/Vol]248 10*3/jQZeklna426-452VvebekunsParma Community General HospitalComment on above:Performed By: #### HEPATIC, MG, CBC, LIPASE, BMP ####[address] [address] USAPotassium [Moles/volume] in Serum or PlasmaOrdered By: Rosalia Posada on 88-02-8285Pghibgipu [Moles/Vol]3.6 mmol/LNormal3.5-5.1FSelect Medical Specialty Hospital - CantonComment on above:Performed By: #### HEPATIC, MG, CBC, LIPASE, BMP ####[place] [address] [place] [phone] USAProtein Test strip (U) [Mass/Vol]Ordered By: Rosalia Posada on 03-37-4808Zmqecse (U) [Mass/Vol]NegativeNegativeParma Community General HospitalProtein [Mass/volume] in Serum or PlasmaOrdered By: Rosalia Posada on 76-45-8142Pqgsfns [Mass/Vol]7.2 g/dLNormal6.4-8.9[facility] HospitalComment on above:Performed By: #### HEPATIC, MG, CBC, LIPASE, BMP ####[place] [phone] USASerum globulin measurement by calculation (mass/volume)Ordered By: Rosalia Posada on 70-59-7744Afykrpwb (S) [Mass/Vol]2.7 g/dLNormCleveland Clinic Euclid HospitalComment on above:Performed By: #### HEPATIC, MG, CBC, LIPASE, BMP ####[place] [phone] USASerum or plasma albumin/globulin mass ratioOrdered By: Rosalia Posada on 00-59-3183Rzcosjz/Globulin [Mass ratio]1.7 {ratio}NormalParma Community General HospitalComment on above:Performed By: #### HEPATIC, MG, CBC, LIPASE, BMP ####[place] [phone] USASerum or plasma anion gap determinationOrdered By: Rosalia Posada on 22-95-3341Rbogg gap [Moles/Vol]11.2 mmol/LNormal6.0-15.0[facility] HospitalComment on above:Performed By: #### HEPATIC, MG, CBC, LIPASE, BMP ####[place] [phone] USASerum or plasma non- glucuronidated bilirubin measurement (mass/volume)Ordered By: Rosalia Posada on 32-29-3530Mvqjtmwwc.indirect [Mass/Vol]0.5 mg/dLSouthern Ohio Medical Centerodium [Moles/volume] in Serum or PlasmaOrdered By: Rosalia Posada on 92-23-8377Cainyq [Moles/Vol]140 mmol/RVpitea146-790QdlfilkqdParma Community General HospitalComment on above:Performed By: #### HEPATIC, MG, CBC, LIPASE, BMP ####[place] [address] Specific gravity Test strip (U) [Rel density]Ordered By: Rosalia Posada on 67-67-9109Dnkpfptp gravity (U) [Rel density]1.0121.001-1.030[facility] HospitalUrea nitrogen [Mass/volume] in Serum or PlasmaOrdered By: Rosalia Posada on 22-55-2756Upve nitrogen [Mass/Vol]13 mg/dLNormal7-25[facility] HospitalComment on above:Performed By: #### HEPATIC, MG, CBC, LIPASE, BMP ####[place] [phone] USAUrine Cultureon 46-44-8254Uttncfyh identified Cx Nom (U)No Growth 2 Days PERFORMED BY: [facility] [address] [facility] [place] [place] [address] PATHOLOGIST ELEVATOR MECHANIC ADDY HESTER M.D.[facility]erton Physician GroupComment on above: Performed By: #### ALEXANDER, KIMBERLYUAPLUS ####[address] USAUrine cultureOrdered By: Rosalia Posada on 03-17-2025 Bacteria identified Cx Nom (U)No Growth 2 DaysParma Community General Hospital Urobilinogen Test strip (U) [Mass/Vol]Ordered By: Rosalia Posada on 03-17-2025 Urobilinogen (U) [Mass/Vol]Normal mg/dLNormalParma Community General HospitalpH of Urine by Test stripOrdered By: Rosalia Posada on 29-55-2653dQ (U)5.0 [pH] Normal5.0-9.0[facility] HospitalComment on above:Order Comment: Name Collection Type:: Clean-Voided MidstreamPerformed By: #### CUU, ADDONUAPLUS ####[facility] [address] [place], [place] [place]AMG Mammogram Digital Screen Bilat + Tomoon 76-88-4793SO Mammogram Digital Screen Bilat + Ravinder#[id number] - MG MAMMOGRAM DIGITAL SCREEN BILAT + RAVINDER BILATERAL DIGITAL SCREENING MAMMOGRAM 3D/2D WITH CAD: 02/16/2025 CLINICAL: Screening. Comparison is made to exams dated: 02/11/2024 mammogram, 01/13/2023 mammogram, 12/27/2021 mammogram, and 12/25/2020 mammogram - [facility]. There are scattered areas of fibroglandular density. [...] may not be detected on mammograms. The [employer] supports annual screening mammography starting at age 40. Gita kim/joshua:02/20/2025 11:56:31 Corn Sheller(s): Zenobia Molina [facility] letter sent: New Mammo Normal B1/2 Mammogram BI-RADS: 1 Negative Final Dictated by: Gita Zhang DO Signed by: Gita Zhang DO Signed (Electronic Signature): 02/20/2025 11:56 am (If Report Is Signed, Electronically Signed in Other Vendor System)Normal [facility] SystemUreaplasma species, PCR-Eliuon 61-70-0324Kitzmpyi Source (URRP)-[facility] HospitalComment on above: Performed By: #### CD:[id number] #### [address] [address]Cjugicodzd parvum PCR-MayoPositiveAbnormalNot Applicable [facility] SystemComment on above:Result Comment: ADDITIONAL INFORMATION This test was developed and its performance characteristics determined by [facility] in a manner consistent with CLIA requirements. This test has not been cleared or approved by the U.S. Food and Drug Administration. Test Performed by: [facility] [place] [address] Counseling Center Manager: Rudolph Garcia Ph.D.; CLIA# [id number] By: #### CD:[id number] #### [address] [address]Nsphhmitci urealyticum PCR-MayoNegativeNormalNot Applicable [facility] SystemComment on above:Performed By: #### CD:[id number] #### [address] [address]Cfjfivdwdr Office/Clinic Noteon 10-12-0583Cdqghmcyog Office/Clinic NoteChief Complaint 49 y/o , , Annual Exam, [...] monthly x 3 due to recurrent symptoms/infection. 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 Ordered: 88046 AMB Preventative EST patient; 40-64 years Ureaplasma species, PCR-[place] 2. Atrophic vaginitis 3. Vaginal burning Medical Decision Making Chronic conditions NOT treated during this visit that affected my overall medical decision making: [] Treatment plans discussed but not opted for at this time: [] Prescribed medication that requires intensive monitoring for toxicity: [] I have reviewed the patient?s medication list for medication interactions/contraindications and/or for upcoming procedures: [yes or no] Time Spent with the Patient I have personally spent [] minutes on this date, directly related to today's patient visit, including pre and post visit work, for this date of service. Time listed does not include time spent on separate (more content not included)... NormalMount Carmel Health SystemMycoplasma hominis, PCR-Eliuon 02-04-2025 Mycoplasma hominis PCR-FreeportNegativeNormalNot ApplicableMount Carmel Health SystemComment on above:Result Comment: ADDITIONAL INFORMATION This test was developed and its performance characteristics determined by [facility] in a manner consistent with CLIA requirements. This test has not been cleared or approved by the U.S. Food and Drug Administration. Test Performed by: [address] [address] Counseling Center Manager: Rudolph Garcia Ph.D.; CLIA# [id number] By: #### CD:[id number] #### [address] [address]Dcvqmhdl Source (RP)-[facility] HospitalComment on above:Performed By: #### CD:[id number] #### [address] [address]Fkddtmsrjw species, PCR-[facility] 55-16-1038Lhjepgrq Source (RP)-[facility] HospitalComment on above:Performed By: #### CD:[id number] #### [address] [address]Jficzhwumw parvum PCR-FreeportPositiveAbnormalNot Applicable [facility] SystemComment on above:Result Comment: ADDITIONAL INFORMATION This test was developed and its performance characteristics determined by [facility] in a manner consistent with CLIA requirements. This test has not been cleared or approved by the U.S. Food and Drug Administration. Test Performed by: [facility] - [address] [address] Counseling Center Manager: Rudolph Garcia Ph.D.; CLIA# [id number] By: #### CD:[id number] #### [address] [address]Gjrlnwsmpa urealyticum PCR-MayoNegativeNormalNot Applicable [facility] SystemComment on above:Performed By: #### CD:[id number] #### [address] [address]Wcucffzokj Office/Clinic Noteon 48-47-2729Xtjtiqakbx Office/Clinic NoteChief Complaint 49 y/o . Continued watery discharge, [...] Patient requests a refill of Drysol deodorant. 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 Contraception Contraception TypeNone Review of [...] PRN, # 35 mL, 0 Refill(s), [id number] est[facility] topical, See Instructions, 1 g VAG HS (at bedtime) 2 x weekly as directed., # 42.5 g, 1 Refill(s), [id number] Mycoplasma hominis, PCR-[place] Ureaplasma species, PCR-[place] Vaginal Panel DNA Medical Decision Making Chronic conditions NOT treated during this visit that affected my overall medical decision making: [] Treatment plans discussed but not opted for at this time: [] Prescribed medication that requires intensive monitoring for toxicity: [] I have reviewed the patient?s medication list for medication interactions/contraindications and/or for upcoming procedures: [yes or no] [...] tablet valACYclovir 500 mg (more content not included)...NormalMount Carmel Health SystemOR Trackon 42-83-9609Awewypa MVP Swab #1NormalMount Carmel Health SystemComment on above:Performed By: #### CD:[id number] #### [address] [address]Ldzbjrqih Received FromPittsfield General HospitalrmWestern Reserve HospitalComment on above:Performed By: #### CD:[id number] #### [address] [address]Yjpeejx Panel DNAon 19-90-5868Vebrckfyd VaginosisNegativeNormal NegativeMount Carmel Health SystemComment on above:Performed By: #### :[id number] #### [address] [address]Kwydvhh glabrata/kruseiNot detectedNormalNot DetectedMount Carmel Health SystemComment on above:Performed By: #### :[id number] #### [address] [address]Enqzeiw groupNot detectedNormalNot DetectedMount Carmel Health SystemComment on above:Performed By: #### CD:[id number] #### [address] [address]Cxnvrpgdwyi vaginalisNot detectedNormalNot DetectedMount Carmel Health SystemComment on above:Performed By: #### CD:[id number] #### [address] [address]Is Panel Informationon 86-36-4205IDADLOHTNMMTH BOSKONTN7XNAK HealthcareACINETOBACTER BAUMANIINot detectedNOMS HealthcareATOPOBIUM VAGINAE0 NOMS HealthcareATOPOBIUM VAGINAENot detectedNOMS HealthcareBVAB 2,3 (BACTERIAL VAGINOSIS ASSOCIATED BACTERIA 2, 3); MOBILUNCUS HYJ1ACYK HealthcareBVAB 2,3 (BACTERIAL VAGINOSIS ASSOCIATED BACTERIA 2, 3); MOBILUNCUS SPPNot detectedNOMS HealthcareCANDIDA ALBICANS, PARAPSILOSIS, IFHTFZPFKA4VBXM HealthcareCANDIDA ALBICANS, PARAPSILOSIS, TROPICALISNot detectedNOMS HealthcareCANDIDA GLABRATA0 NOMS HealthcareCANDIDA GLABRATANot detectedNOMS HealthcareCANDIDA AWWMCT0NTDK HealthcareCANDIDA KRUSEINot detectedNOMS HealthcareCHLAMYDIA HHERVNDOOXF6BJAN HealthcareCHLAMYDIA TRACHOMATISNot detectedNOMS HealthcareCITROBACTER FREUNDII0 NOMS HealthcareCITROBACTER FREUNDIINot detectedNOMS HealthcareENTEROBACTER AEROGENES, CNNMQWA4ZQWJ HealthcareENTEROBACTER AEROGENES, CLOACAENot detected NOMS HealthcareENTEROCOCCUS FAECALIS, YKWIXEJ0BQFB HealthcareENTEROCOCCUS FAECALIS, FAECIUMNot detectedNOMS HealthcareESCHERICHIA XOIA3LBAN Healthcare ESCHERICHIA COLINot detectedNOMS HealthcareGARDNERELLA TVPQHGGQD7TYSJ Healthcare GARDNERELLA VAGINALISNot detectedNOMS HealthcareKLEBSIELLA PNEUMONIAE, OXYTOCA0 NOMS HealthcareKLEBSIELLA PNEUMONIAE, OXYTOCANot detectedNOMS Healthcare MEGASPHAERA (TYPES 1, 2)0NOMS HealthcareMEGASPHAERA (TYPES 1, 2)Not detectedNOMS HealthcareMORGANELLA PTRYYWKQ5SRZO HealthcareMORGANELLA MORGANIINot detected NOMS HealthcareMYCOPLASMA GHUTXRTEXJ5AMUW HealthcareMYCOPLASMA GENITALIUMNot detectedNOMS HealthcareMYCOPLASMA OYDGICI8SJXO HealthcareMYCOPLASMA HOMINISNot detectedNOMS HealthcareNEISSERIA KBXEOHIYIOV9ZXGL HealthcareNEISSERIA GONORRHOEAENot detectedNOMS HealthcarePROTEUS MIRABILIS, AOHAUIRS8YIPI HealthcarePROTEUS MIRABILIS, VULGARISNot detectedNOMS HealthcarePSEUDOMONAS AGOUTAUZMQ2CFPM HealthcarePSEUDOMONAS AERUGINOSANot detectedNOMS Healthcare SERRATIA OCDYQRJTNP3ICCI HealthcareSERRATIA MARCESCENSNot detectedNOMS HealthcareSTAPHYLOCOCCUS JELEWR5MKWT HealthcareSTAPHYLOCOCCUS AUREUSNot detected NOMS HealthcareSTAPHYLOCOCCUS EPIDERMIDIS, HAEMOLYTICUS, VNDUJZKQFIE8OCLN HealthcareSTAPHYLOCOCCUS EPIDERMIDIS, HAEMOLYTICUS, LUGDUNENSISNot detectedNOMS HealthcareSTAPHYLOCOCCUS HHUWFOOAJMYPZ4BMAW HealthcareSTAPHYLOCOCCUS SAPROPHYTICUSNot detectedNOMS HealthcareSTREPTOCOCCUS AGALACTIAE (GROUP B STREP) 0NOMS HealthcareSTREPTOCOCCUS AGALACTIAE (GROUP B STREP)Not detectedNOMS HealthcareSTREPTOCOCCUS PYOGENES (GROUP A STREP)0NOMS HealthcareSTREPTOCOCCUS PYOGENES (GROUP A STREP)Not detectedNOMS HealthcareTRICHOMONAS JBKVJZEXE1XOJN HealthcareTRICHOMONAS VAGINALISNot detectedNOMS HealthcareUREAPLASMA OCZLOQ1MTKT HealthcareUREAPLASMA PARVUMNot detectedNOMS HealthcareUREAPLASMA UREALYTICUM0 NOMS HealthcareUREAPLASMA UREALYTICUMNot detectedNOMS HealthcareNOOR Healthcare Laboratory - Chemistry and Chemistry - challengeon 13-60-2461Jqlpsnnie Ql (U) NegativeNegativeNOOR HealthcareGlucose [Mass/Vol]NegativeNegativeNOOR Healthcare Ketones Ql (U)NegativeNegativeNOMS HealthcarepH (U)6 [pH]5.0 - 6.0NOOR HealthcareSpecific gravity (U) [Rel density]1.0051.001 - 1.035NOOR Healthcare Urobilinogen (U) [Mass/Vol]Negative0.2 - 1.0NOOR HealthcareLaboratory - Hematology and Cell countson 57-74-8891Rpxusauxsf Ql (U)NegativeNegativeNOOR HealthcareLaboratory - Urinalysison 74-38-0968Gdvsogr Ql (U)NegativeNegativeNOOR HealthcareProtein Ql (U)NegativeNegativeNOOR HealthcareNo Panel Informationon 30-85-5818Eljrgfoqwkjpvj and review of laboratory resultsNormalNOSaint [facility] LEUKOCYTESNegativeNegativeNOSaint Joseph Hospital of KirkwoodNOOR HealthcareNo Panel Informationon 50-44-4274UISNHZCLZ TRACHOMATIS (URETHRITIS/DISCHARGE)0NOMS HealthcareCHLAMYDIA TRACHOMATIS (URETHRITIS/DISCHARGE)Not detectedNOMS HealthcareHERPES SIMPLEX VIRUS 1 (URETHRITIS/DISCHARGE)0NOMS HealthcareHERPES SIMPLEX VIRUS 1 (URETHRITIS/DISCHARGE)Not detectedNOOR HealthcareHERPES SIMPLEX VIRUS 2 (URETHRITIS/DISCHARGE)0NOMS HealthcareHERPES SIMPLEX VIRUS 2 (URETHRITIS/DISCHARGE)Not detectedNOOR HealthcareInterpretation and review of laboratory resultsAbnormalNOOR HealthcareMYCOPLASMA GENITALIUM (URETHRITIS/DISCHARGE)0NOMS HealthcareMYCOPLASMA GENITALIUM (URETHRITIS/DISCHARGE)Not detectedNOMS HealthcareMYCOPLASMA HOMINIS (URETHRITIS/DISCHARGE)0NOMS HealthcareMYCOPLASMA HOMINIS (URETHRITIS/DISCHARGE) Not detectedNOMS HealthcareNEISSERIA GONORRHOEAE (URETHRITIS/DISHCARGE)0NOMS HealthcareNEISSERIA GONORRHOEAE (URETHRITIS/DISHCARGE)Not detectedNOMS HealthcareTRICHOMONAS VAGINALIS (URETHRITIS/DISCHARGE)0NOMS Healthcare TRICHOMONAS VAGINALIS (URETHRITIS/DISCHARGE)Not detectedNOMS Healthcare UREAPLASMA PARVUM (URETHRITIS/DISCHARGE)29.574AbnormalNOMS HealthcareUREAPLASMA PARVUM (URETHRITIS/DISCHARGE)DetectedAbnormalNOMS HealthcareUREAPLASMA UREALYTICUM (URETHRITIS/DISCHARGE)0NOMS HealthcareUREAPLASMA UREALYTICUM (URETHRITIS/DISCHARGE)Not detectedNOMS HealthcareNOMS HealthcareLaboratory - Chemistry and Chemistry - challengeon 77-30-5863Lafzswmvh Ql (U)NegativeNegative NOMS HealthcareGlucose [Mass/Vol]NegativeNegativeNOMS HealthcareKetones Ql (U) NegativeNegativeNOMS HealthcarepH (U)5.5 [pH]5.0 - 6.0NOMS HealthcareSpecific gravity (U) [Rel density]1.011.001 - 1.035NOMS HealthcareUrobilinogen (U) [Mass/Vol]Negative0.2 - 1.0NOOR HealthcareLaboratory - Hematology and Cell countson 94-56-3668Etuomatjkk Ql (U)NegativeNegativeNOMS HealthcareLaboratory - Urinalysison 14-88-1775Tovmwot Ql (U)NegativeNegativeNOMS HealthcareProtein Ql (U)NegativeNegativeNOMS HealthcareNo Panel Informationon 01-16-2025 Interpretation and review of laboratory resultsNormalNOMS HealthcareLEUKOCYTES NegativeNegativeNOMS HealthcareNOMS HealthcareUreaplasma species, PCR-[facility] 37-83-4919Tfuybgfi Source (URRP)-[facility] CenterginPremier Health [facility] Comment on above:Performed By: #### CD:[id number] #### [facility] [address] [place] [address]Bfotxwhmpq parvum PCR-FreeportPositiveAbnormalNot Applicable [facility] SystemComment on above:Result Comment: ADDITIONAL INFORMATION This test was developed and its performance characteristics determined by [facility] in a manner consistent with CLIA requirements. This test has not been cleared or approved by the U.S. Food and Drug Administration. Test Performed by: [address] [address] Counseling Center Manager: Rudolph Garcia Ph.D.; CLIA# [id number] By: #### CD:[id number] #### [address] [address]Hynhwfsrgn urealyticum PCR-MayoNegativeNormalNot Applicable [facility] SystemComment on above:Performed By: #### CD:[id number] #### [address] [address]K Genion 01-09-2025 Bety Final Moderate Growth of Normal genital ovidio isolated . [facility] recommends the use of a vaginal DNA panel for the detection of DNA targets from anaerobic bacteria associated with bacterial vaginosis (BV), Esthela species associated with vulvovaginal candidiasis, and Trichomonas vaginalis in vaginal fluid specimens from patients with symptoms of vaginitis/vaginosis. NormalMount Carmel Health SystemComment on above:Performed By: #### GENC #### [facility] [address] [place], [place] [address]Yzyln & GC, DNAon 34-14-1108Gtocufzzx, DNANegativeNormal NegativeMount Carmel Health SystemComment on above:Result Comment: The APTIMA Combo 2 Assay is a target amplification nucleic acid probe test that util izes target capture for the in-vitro qualitative detection [...] laboratory and clinical data available to the clinician.Performed By: #### CD:[id number] #### HENRIETTA Tushky [address] [place] [address]Xafuvehha, DNANegativeNormalNegativeMount Carmel Health SystemComment on above:Result Comment: The APTIMA Combo 2 Assay is a target amplification nucleic acid probe test that utilizes target capture for the in- vitro qualitative detection of ribosomal RNA (rRNA) form Chlamydia tr achomatis/CT and /or Neisseria gonorrhoeae/GC A negative result does not preclude the presence of a CT or GC infection because results are dependent of adequate specimen collection, absence of inhibitors and sufficient rRNA to be detected. Results from the APTIMA Combo 2 Assay should be interpreted in conjunction with other laboratory and clinical data available to the clinician.Performed By: #### CD:[id number] #### [address] [address]Sfapwwpwqx Office/Clinic Noteon 47-30-0860Lywziucjyp Office/Clinic NoteChief Complaint Possible infection History of Present Illness [...] Ordered: Culture Genital GC/Chlamydia DNA Ureaplasma species, PCR-[place] Vaginal Panel DNA Medical Decision Making Chronic conditions NOT treated during this visit that affected my overall medical decision making: [] Treatment plans discussed but not opted for at this time: [] Prescribed medication that requires intensive monitoring for toxicity: [] I have reviewed the patient?s medication list for medication interactions/contraindications and/or for upcoming procedures: [yes or no] [...] Electronically signed by Indu Leon 01/05/2025 16:49 EDTSelect Medical Specialty Hospital - TrumbullOR Trackon 11-98-3686Ywjljxk MVP Swab #1NVan Wert County HospitalComment on above:Performed By: #### CD:[id number] #### [address] [address]Rfacsjums Received FromAccess Hospital Dayton SystemComment on above:Performed By: #### CD:[id number] #### [facility] [address] [place], [place] [address]Pwpgrge Panel DNAon 96-47-9523Swgiwtcdy VaginosisNegative NormalNegativeMount Carmel Health SystemComment on above:Performed By: #### CD:[id number] #### [address] [address]Exdxgye glabrata/kruseiNot detectedNormalNot DetectedMount Carmel Health SystemComment on above:Performed By: #### CD:[id number] #### [address] [address]Vjgqwpa groupNot detectedNormalNot DetectedMount Carmel Health SystemComment on above:Performed By: #### CD:[id number] #### [address] [address]Xwdbfdwgutf vaginalisNot detectedNormalNot DetectedMount Carmel Health SystemComment on above:Performed By: #### CD:[id number] #### [address] [address]Krtyhnuctz 03-09-4655Fqcdwdkm [Mass/Vol]51.3 ng/mLNormal 11.0-306.8The [facility] Holly Physician GroupComment on above:Order Comment: PT VERAFIED THESE TEST ARE DUE NOW NOT 02/23/25Performed By: #### FE and TIBC, TSH3 wRFLX, MYRON ####[place] [address] [place] [address] USAIron and TIBC Profileon 08-29-2024% Iron Ywybvjfgdo05.5 %Byh81-95Cxd [facility] Physician GroupComment on above:Order Comment: PT VERAFIED THESE TEST ARE DUE NOW NOT 02/23/25Performed By: #### FE and TIBC, TSH3 wRFLX, MYRON ####[facility] [place] [address] USAIron [Mass/Vol]76 ug/xPWhisnn49-114Dqv [facility] Physician GroupComment on above: Order Comment: PT VERAFIED THESE TEST ARE DUE NOW NOT 02/23/25Performed By: #### FE and TIBC, TSH3 wRFLX, MYRON ####[address] [place] [address] USATotal Iron Binding Hnzzojuh196 ug/uFArztrz177-058Ryp [facility] Physician GroupComment on above:Order Comment: PT VERAFIED THESE TEST ARE DUE NOW NOT 02/23/25Performed By: #### FE and TIBC, TSH3 wRFLX, MYRON ####[address] [address] [place] Transferrin [Mass/Vol]278 mg/zDAgruyh126-126Iig [facility] Physician GroupComment on above:Order Comment: PT VERAFIED THESE TEST ARE DUE NOW NOT 02/23/25 Performed By: #### FE and TIBC, TSH3 wRFLX, MYRON ####[address] [place] [address] USAThyroid Stim Hormone w/Rflxon 69-45-0591Wcokpsj Stim Hormone w/Rflx3.94 u[iU]/mLNormal0.45-5.33The [facility] Physician GroupComment on above:Order Comment: PT VERAFIED THESE TEST ARE DUE NOW NOT 02/23/25Result Comment: PERFORMED BY: [facility] [address] [place] [address] PATHOLOGIST ELEVATOR MECHANIC MILLER VO M.D.Performed By: #### FE and TIBC, TSH3 wRFLX, MYRON ####[address] [address] [facility] Bety on 08-28-2024 Bety Final Light Growth of Normal genital ovidio [...] synergy S Syn-S V Vancomycin S 1 VNormalMount Carmel Health SystemComment on above:Performed By: #### GENC #### [facility] (DEFAULT) [address] [place] [id number] [address]Cnvrp & GC, DNAon 97-56-6853Afwvcgcet, DNANegativeNormal NegativeMount Carmel Health SystemComment on above:Result Comment: The APTIMA Combo 2 Assay is a target amplification nucleic acid probe test that util izes target capture for the in-vitro qualitative detection [...] laboratory and clinical data available to the clinician.Performed By: #### CD:[id number] #### [address] [address]Mpyvngxia, DNANegativeNormalNegativeMount Carmel Health SystemComment on above:Result Comment: The APTIMA Combo 2 Assay is a target amplification nucleic acid probe test that utilizes target capture for the in- vitro qualitative detection of ribosomal RNA (rRNA) form Chlamydia tr achomatis/CT and /or Neisseria gonorrhoeae/GC A negative result does not preclude the presence of a CT or GC infection because results are dependent of adequate specimen collection, absence of inhibitors and sufficient rRNA to be detected. Results from the APTIMA Combo 2 Assay should be interpreted in conjunction with other laboratory and clinical data available to the clinician.Performed By: #### CD:[id number] #### [address] [address]UM Trackon 98-62-8742Bvtnbuq MVP Swab #1NormalMount Carmel Health SystemComment on above:Performed By: #### CD:[id number] #### [facility] [address] [place], [place] [address]Eqkfbtlin Received From OB EastNormalTwin City Hospital SystemComment on above:Performed By: #### CD:[id number] #### [facility] [address] [place], [place] [address]Sxokexb Panel DNAon 91-56-2977Aztrsilre VaginosisNegative NormalNegativeMount Carmel Health SystemComment on above:Performed By: #### CD:[id number] #### [address] [address]Hdeuzxo glabrata/kruseiNot detectedNormalNot DetectedMount Carmel Health SystemComment on above:Performed By: #### CD:[id number] #### [address] [address]Bqgtpka groupNot detectedNormalNot DetectedMount Carmel Health SystemComment on above:Performed By: #### CD:[id number] #### [address] [address]Vkvdkmyptcr vaginalisNot detectedNormalNot DetectedMount Carmel Health SystemComment on above:Performed By: #### CD:[id number] #### [address] [address]Kqctedgguf Office/Clinic Noteon 53-17-4973Fazmmyagtb Office/Clinic NoteChief Complaint Possible infection History of Present Illness [...] be tested for chlamydia, gonorrhea, and trichomonas. 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 There is no amount of thickwhite discharge consistent with leftover MetroGel in the [...] reviewed the patient?s medication list for medication interactions/contraindications and/or for upcoming procedures: [yes or no] [...] Mammogram Digital Screen Bilat +Ravinder 02/11/24 16:01:00 #[id number] - MG MAMMOGRAM DIGITAL SCREEN BILAT + RAVINDER BILATERAL DIGITAL SCREENING MAMMOGRAM 3D/2D WITH CAD: 02/11/2024 CLINICAL: Screening. Comparison is made to exams dated: 12/27/2021 mammogram, 01/13/2023 mammogram, and 12/25/2020 mammogram- [facility]. The breasts are heterogeneously dense, which may obscure small masses. Current study was also evaluated with a Computer Aided Detection (CAD) system. There are benign nodules in the right breast. There also are benign scattered calcifications in theright breast. No significant masses, calcifications, or other [...] findings. 10-15% of (more content not included)... NormalMount Carmel Health SystemAlanine aminotransferase [Enzymatic activity/volume] in Serum or PlasmaOrdered By: Valerio Zheng on 28-19-2097TEM [Catalytic activity/Vol]Alanine aminotransferase [Enzymatic activity/volume] in Serum or PlasmaParma Community General HospitalAlbumin [Mass/volume] in Serum or Plasma by Bromocresol green (BCG) dye binding metho Ordered By: Valerio Zheng on 50-95-5102Tryisqq BCG dye [Mass/Vol]Albumin [Mass/volume] in Serum or Plasma by Bromocresol green (BCG) dye binding metho 3.5-5.7FSelect Medical Specialty Hospital - CantonAlkaline phosphatase [Enzymatic activity/volume] in Serum or PlasmaOrdered By: Valerio Zheng on 46-58-1113WVK [Catalytic activity/Vol]Alkaline phosphatase [Enzymatic activity/volume] in Serum or Vxukje65-540EwzasmhtuParma Community General Hospital Amylaseon 15-56-2136Chlfcak [Catalytic activity/Vol]29 U/VHtvxso61-578Mdm [facility] Physician GroupComment on above:Performed By: #### HEPATIC, LIPASE, BMP, MG, YAZMIN ####[address] [place] [address] USAAmylase [Enzymatic activity/volume] in Serum or PlasmaOrdered By: Valerio Zheng on 96-24-9464Ptdzffe [Catalytic activity/Vol]Amylase [Enzymatic activity/volume] in Serum or Todkeo24-970XqcgklslfParma Community General HospitalAspartate aminotransferase [Enzymatic activity/volume] in Serum or Plasma Ordered By: Valerio Zheng on 28-79-6131NVE [Catalytic activity/Vol] Aspartate aminotransferase [Enzymatic activity/volume] in Serum or PlasmaLow 13-39Par[facility] Community General HospitalBasic Metabolic Panelon 58-02-5184Ioafd gap [Moles/Vol]7.7 mmol/LNormal6.0-15.0The [facility] Physician GroupComment on above:Performed By: #### HEPATIC, LIPASE, BMP, MG, YAZMIN ####[facility] [place] [address] USACalcium [Mass/Vol]8.5 mg/dLLow 8.6-10.3The [facility] Physician GroupComment on above:Performed By: #### HEPATIC, LIPASE, BMP, MG, YAZMIN ####[address] [place] [address] USAChloride [Moles/Vol]110 mmol/PSbcq51-545Qnc [facility] Physician GroupComment on above:Performed By: #### HEPATIC, LIPASE, BMP, MG, YAZMIN ####[place] [address] USACO2 [Moles/Vol]27.0 mmol/PDqfftm53.0-31.0The [facility] Comment on above:Performed By: #### HEPATIC, LIPASE, BMP, MG, YAZMIN ####[place] [address] USACreatinine [Mass/Vol] 0.77 mg/dLNormal0.60-1.20The [facility] Physician GroupComment on above:Performed By: #### HEPATIC, LIPASE, BMP, MG, YAZMIN ####[place] [address] USACreatinine Clr Calc Ruvdgzmv31.12NormalThTeton Valley Hospital Physician GroupComment on above:Performed By: #### HEPATIC, LIPASE, BMP, MG, YAZMIN ####[place] [address] USAGFR/1.73 sq M.predicted MDRD (S/P/Bld) [Vol rate/Area]mL/min/{1.73_m2} NormalThe [facility] Physician GroupComment on above:Performed By: #### HEPATIC, LIPASE, BMP, MG, YAZMIN ####[place] [address] USAGlucose [Mass/Vol]77 mg/mDRlqaaf39-078Tvl [facility] Physician GroupComment on above:Result Comment: Random Glucose Reference Range is dependent on time and content of last meal. Glucose of more than 200 mg/dL in a nonstressed, ambulatory subject supports the diagnosis of Diabetes Mellitus. ADA recommended reference rangePerformed By: #### HEPATIC, LIPASE, BMP, MG, YAZMIN ####[place] [address] [place] Potassium [Moles/Vol]4.7 mmol/LNormal3.5-5.1The [facility] Physician GroupComment on above:Performed By: #### HEPATIC, LIPASE, BMP, MG, YAZMIN ####[address] [place] [address] USASodium [Moles/Vol]140 mmol/KAsigxz317-215Zva [facility] Physician GroupComment on above:Performed By: #### HEPATIC, LIPASE, BMP, MG, YAZMIN ####[facility] [address] [place] [address] USAUrea nitrogen [Mass/Vol]8 mg/dLNormal7-25The [facility] Physician GroupComment on above:Performed By: #### HEPATIC, LIPASE, BMP, MG, YAZMIN ####[facility] [address] [place] [address] USABasophils Auto (Bld) [#/Vol]Ordered By: Valerio Zheng on 90-08-6524Mpxsruiwb (Bld) [#/Vol]Automated basophil count0.0-0.2FSelect Medical Specialty Hospital - CantonBasophils/100 WBC Auto (Bld)Ordered By: Valerio Zheng on 75-96-1289Ipqlvrbyx/100 WBC (Bld)Automated basophil %.[facility] General HospitalBilirubin.direct [Mass/volume] in Serum or PlasmaOrdered By: Valerio Zheng on 45-80-4988Jaujxmajs.direct [Mass/Vol] Bilirubin.direct [Mass/volume] in Serum or Plasma0.03-0.18FSelect Medical Specialty Hospital - CantonBilirubin.total [Mass/volume] in Serum or PlasmaOrdered By: Valerio Zheng on 55-00-1816Lqefeksnf [Mass/Vol]Bilirubin.total [Mass/volume] in Serum or Plasma0.3-1.0Par[facility] General HospitalCalcium [Mass/volume] in Serum or PlasmaOrdered By: Valerio Zheng on 08-01-2024 Calcium [Mass/Vol]Calcium [Mass/volume] in Serum or PlasmaLow8.6-10.3FSelect Medical Specialty Hospital - CantonCarbon dioxide, total [Moles/volume] in Serum or Plasma Ordered By: Valerio Zheng on 57-79-3939JA5 [Moles/Vol]Carbon dioxide, total [Moles/volume] in Serum or Attirp85.0-31.0Par[facility] General HospitalChloride [Moles/volume] in Serum or PlasmaOrdered By: Valerio Zheng on 24-22-8119Lpylmurl [Moles/Vol]Chloride [Moles/volume] in Serum or PlasmaHigh 98-107Par[facility] Community General HospitalComplete Blood Count Auto Diffon 68-63-4138Dfsnlcrgz (Bld) [#/Vol]0.0 10*3/uLNormal0.0-0.2The [facility] Physician GroupComment on above:Result Comment: PERFORMED BY: [place] [address] PATHOLOGIST ELEVATOR MECHANIC MILLER VO M.D.Performed By: #### CBC #### [place] [address] USABasophils/100 WBC (Bld)0.4 %Normal.The [facility] Physician GroupComment on above:Performed By: #### CBC #### [place] [address] USAEosinophils (Bld) [#/Vol]0.3 10*3/uLNormal0.0-0.45The [facility] Physician GroupComment on above:Performed By: #### CBC #### [place] [address] USAEosinophils/100 WBC (Bld)4.5 %Normal.The [facility] Physician GroupComment on above:Performed By: #### CBC #### [place] [address] USAErythrocyte distribution width (RBC) [Ratio]13.3 %Normal 11.9-15.3The [facility] Physician GroupComment on above:Performed By: #### CBC #### [place] [address] USAHematocrit (Bld) [Volume fraction]38.5 %Jabhxm62.0-46.4The [facility] Physician GroupComment on above:Performed By: #### CBC #### [place] [address] USAHemoglobin (Bld) [Mass/Vol]13.0 g/jKHbqdqx36.8-15.4The [facility] Physician GroupComment on above:Performed By: #### CBC #### [place] [address] USALymphocytes (Bld) [#/Vol]3.3 10*3/uLNormal1.00-4.8The [facility] Physician GroupComment on above:Performed By: #### CBC #### [place] [address] USALymphocytes/100 WBC (Bld)52.7 %Normal.The [facility] Physician GroupComment on above:Performed By: #### CBC #### [place] [address] USAMCH (RBC) [Entitic mass]30.0 oiLqyvqq15.7-34.3The [facility] Physician GroupComment on above:Performed By: #### CBC #### [place] [address] USAMCV (RBC) [Entitic vol]88.9 lTLsmqqr11-761Nxv [facility] Physician GroupComment on above:Performed By: #### CBC #### [place] [address] USAMean Corpuscular HGB Conc33.7 g/rCMnjbwd80.0-35.0The [facility] Physician GroupComment on above:Performed By: #### CBC #### [place] [address] USAMonocytes (Bld) [#/Vol]0.5 10*3/uLNormal0.0-0.8The [facility] Physician GroupComment on above:Performed By: #### CBC #### [place] [address] USAMonocytes/100 WBC (Bld)8.2 %Normal.The [facility] Physician GroupComment on above:Performed By: #### CBC #### [place] [address] USANeutrophils (Bld) [#/Vol]2.1 10*3/uLNormal1.8-7.7The [facility] Physician GroupComment on above:Performed By: #### CBC #### [facility] [address] [place] [address] USANeutrophils/100 WBC (Bld)34.2 %Normal.The [facility] Physician GroupComment on above:Performed By: #### CBC #### [facility] [address] [place] [address] USANRBC%0.2 /100{WBC}Normal0-0.5The [facility] Comment on above:Performed By: #### CBC #### [facility] [address] [place] [address] USAPlatelet mean volume (Bld) [Entitic vol]8.6 fLNormal 6.3-10.7The [facility] Physician GroupComment on above:Performed By: #### CBC #### [facility] [address] [place] [address] USAPlatelets (Bld) [#/Vol]215 10*3/xCKcfjrd775-910Edh [facility] Physician GroupComment on above:Performed By: #### CBC #### [facility] [address] [place] [address] USARBC (Bld) [#/Vol]4.33 10*6/uLNormal3.60-5.00The [facility] Physician GroupComment on above:Performed By: #### CBC #### [facility] [address] [place] [address] USAWBC (Bld) [#/Vol]6.3 10*3/uLNormal3.8-11.6The [facility] Physician GroupComment on above:Performed By: #### CBC #### [place] [address] USACreatinine [Mass/volume] in Serum or PlasmaOrdered By: Valerio Zheng on 81-11-8292Uafevjydld [Mass/Vol]Creatinine [Mass/volume] in Serum or Plasma0.60-1.20[facility] General HospitalEosinophils Auto (Bld) [#/Vol]Ordered By: Valerio Zheng on 22-55-0197Fpstdlvqhnk (Bld) [#/Vol]Automated eosinophil count0.0-0.45[facility] Eosinophils/100 WBC Auto (Bld)Ordered By: Valerio Zheng on 08-01-2024 Eosinophils/100 WBC (Bld)Automated eosinophil %.[facility] General HospitalErythrocyte distribution width Auto (RBC) [Ratio]Ordered By: Valerio Zheng on 28-79-7248Gjgjnnkxqzs distribution width (RBC) [Ratio]Erythrocyte distribution width [Ratio] by Automated count11.9-15.3FSelect Medical Specialty Hospital - CantonGlobulin Calc (S) [Mass/Vol]Ordered By: Valerio Zheng on 03-30-1555Ycftxkis (S) [Mass/Vol]Serum globulin measurement by calculation (mass/volume)[facility] HospitalGlucose [Mass/volume] in Serum or PlasmaOrdered By: Valerio Zheng on 59-47-3195Hhojqen [Mass/Vol]Glucose [Mass/volume] in Serum or Ocrswj91-003ZqtfwmvwrParma Community General HospitalComment on above:ADA recommended reference rangeRandom Glucose Reference Range is dependent on time and content of last meal. Glucose of more than 200 mg/dL in a nonstressed, ambulatory subject supports the diagnosisof Diabetes Mellitus. Hematocrit Auto (Bld) [Volume fraction]Ordered By: Valerio Zheng on 39-79-7764Dlphzsakne (Bld) [Volume fraction]Hematocrit [Volume Fraction] of Blood by Automated count34.0-46.4FSelect Medical Specialty Hospital - CantonHemoglobin [Mass/volume] in BloodOrdered By: Valerio Zheng on 77-10-2179Trsyiatmmo (Bld) [Mass/Vol]Hemoglobin [Mass/volume] in Blood11.8-15.4FSelect Medical Specialty Hospital - CantonHepatic Panelon 39-47-5339Awzuizk [Mass/Vol]3.5 g/dLNormal3.5-5.7 The [facility] Physician GroupComment on above:Performed By: #### HEPATIC, LIPASE, BMP, MG, YAZMIN ####[place] [address] USAAlbumin/Globulin [Mass ratio]1.8 {ratio}NormalThe [facility] Physician GroupComment on above:Performed By: #### HEPATIC, LIPASE, BMP, MG, YAZMIN ####[place] [address] USAALP [Catalytic activity/Vol]70 U/BFhmifr33-175Jut [facility] Physician GroupComment on above:Performed By: #### HEPATIC, LIPASE, BMP, MG, YAZMIN ####[place] [address] USAALT [Catalytic activity/Vol]8 U/LNormal7-52The [facility] Physician GroupComment on above:Performed By: #### HEPATIC, LIPASE, BMP, MG, YAZMIN ####[place] [address] USAAST [Catalytic activity/Vol]9 U/SLiz95-92Bso [facility] Physician GroupComment on above:Performed By: #### HEPATIC, LIPASE, BMP, MG, YAZMIN ####[place] [address] USABilirubin [Mass/Vol]0.7 mg/dLNormal0.3-1.0The [facility] Physician GroupComment on above:Performed By: #### HEPATIC, LIPASE, BMP, MG, YAZMIN ####[place] [address] USABilirubin,Indirect0.6 mg/dLNormalThe [facility] Physician GroupComment on above:Performed By: #### HEPATIC, LIPASE, BMP, MG, YAZMIN ####[place] [address] USABilirubin.indirect [Mass/Vol] 0.10 mg/dLNormal0.03-0.18The [facility] Physician GroupComment on above:Performed By: #### HEPATIC, LIPASE, BMP, MG, YAZMIN ####[place] [address] USAGlobulin (S) [Mass/Vol]1.9 g/dLNormalThe [facility] Physician GroupComment on above:Performed By: #### HEPATIC, LIPASE, BMP, MG, YAZMIN ####[facility] [address] [place] [address] USAProtein [Mass/Vol]5.4 g/dLLow6.4-8.9The [facility] Comment on above:Performed By: #### HEPATIC, LIPASE, BMP, MG, YAZMIN ####[facility] [address] [place] [address] [facility] Specimen: [id number] Received: 08/01/24 Status: FELIPE Eckert Num: [id number] Spec Type: Surgical Subm Dr: Bowen Lozano MD Tissues: A GASTRIC FOR HP (GASTRIC BX R/O H PYLORI) B Esophagus Biopsy (ESOPHAGUS BX R/O EOE) Procedures: HE/[place], Gross/Micro L4/2, H PYLORI Age/ Patient Sex Location Account Attending Physician Trudy Wilder 48/F 3T [id number] Spenser Yarbrough MD SPEC NUM: [id number] RECD: 08/01/24 STATUS: FELIPE ECKERT NUM: [id number] CE: 08/01/[address] [facility] [address]: Bowen Lozano MD ENTERED: 08/01/[address]: ASH TYPE: Surgical DEPT: S ENTERED BY: [id number] RECV BY: [id number] ORDERED: HE/4, Gross/Micro L4/2, H PYLORI ORDERED: [...] submitted in a single cassette. (1, ns, [id number] A) JG Part B is received in formalin labeled with the patients name, date of , and esophagus BX are 2 pale steel, focally erythematous, feathery, 0.2 and 0.4 cm in greatest dimension tissue bits. The specimen is entirely submitted in a single cassette. (1, ns, [id number] B) JG Specimen: [id number] Received: 08/01/24 Status: FELIPE Eckert Num: [id number] Spec Type: Surgical Subm Dr: Bowen Lozano MD Tissues: A GASTRIC FOR HP (GASTRIC BX R/O H PYLORI) B Esophagus Biopsy (ESOPHAGUS BX R/O EOE) Procedures: HE/4, Gross/Micro L4/2, H PYLORI Patient: Trudy Wilder [id number] (Continued) Specimen: [id number] Received: 08/01/24 (Continued) Signed (signature on file) Miller Vo MD 08/02/24 1430 Specimen: [id number] Received: 08/01/24 Status: FELIPE Eckert Num: [id number] Spec Type: Surgical Subm Dr: Bowen Lozano MD Tissues: A GASTRIC FOR HP (GASTRIC BX R/O H PYLORI) B Esophagus Biopsy (ESOPHAGUS BX R/O EOE) Procedures: HE/4, Gross/Micro L4/2, H PYLORI Patient: Trudy Wilder [id number] (Continued) Specimen: [id number] Received: 08/01/24 (Continued) CPT Codes [id number] Specimen: [id number] Received: 08/01/24 Status: FELIPE Eckert Num: [id number] Spec Type: Surgical Subm Dr: Bowen Lozano MD Tissues: A GASTRIC FOR HP (GASTRIC BX R/O H PYLORI) B Esophagus Biopsy (ESOPHAGUS BX R/O EOE) Procedures: HE/4, Gross/Micro L4/2, H PYLORI Patient: Trudy Wilder [id number] (Continued) Signed (signature on file) Milelr Vo MD 08/02/24 1430NormOrlando Health [facility] Phys[facility] MadisonLeukocytes [#/volume] corrected for nucleated erythrocytes in Blood by Automated counOrdered By: Valerio Zheng on 45-74-7524EGW corrected for nucl RBC Auto (Bld) [#/Vol]Leukocytes [#/volume] corrected for nucleated erythrocytes in Blood by Automated coun 3.8-11.6FSelect Medical Specialty Hospital - CantonLipaseon 65-70-1159Aakeay [Catalytic activity/Vol]25.0 U/UKywxqq69.0-82.0The [facility] Physician GroupComment on above:Result Comment: PERFORMED BY: [address] [place] [address] PATHOLOGIST ELEVATOR MECHANIC MILLER VO M.D.Performed By: #### HEPATIC, LIPASE, BMP, MG, YAZMIN ####[facility] [address] [place] [address] USALipase [Enzymatic activity/volume] in Serum or PlasmaOrdered By: Valerio Zheng on 58-06-3630Cvuods [Catalytic activity/Vol]Lipase [Enzymatic activity/volume] in Serum or Tyfnke34.0-82.0[facility] General HospitalLymphocytes Auto (Bld) [#/Vol]Ordered By: Valerio Zheng on 48-50-0961Aycvjutlehr (Bld) [#/Vol]Lymphocytes [#/volume] in Blood by Automated count1.00-4.8[facility] General HospitalLymphocytes/100 WBC Auto (Bld)Ordered By: Valerio Zheng on 62-23-0476Zxynuvtcdoj/100 WBC (Bld)Lymphocytes/100 leukocytes in Blood by Automated count.[facility] Auto (RBC) [Entitic mass]Ordered By: Valerio Zheng on 52-31-9473ERN (RBC) [Entitic mass]MCH [Entitic mass] by Automated count24.7-34.3FFort Hamilton Hospital Auto (RBC) [Mass/Vol]Ordered By: Valerio Zheng on 08-01-2024 MCHC (RBC) [Mass/Vol]MCHC [Mass/volume] by Automated count32.0-35.0[facility] HospitalV Auto (RBC) [Entitic vol]Ordered By: Valerio Zheng on 25-28-7029ZVK (RBC) [Entitic vol]MCV [Entitic volume] by Automated dusgl81-178OftmciipoParma Community General HospitalMagnesiumon 64-68-6363Hyostiwns [Mass/Vol]2.4 mg/dLNormal1.9-2.7The [facility] Physician GroupComment on above: Performed By: #### HEPATIC, LIPASE, BMP, MG, YAZMIN ####[facility] [address] [place] [address] USAMagnesium [Mass/volume] in Serum or PlasmaOrdered By: Valerio Zheng on 02-15-1873Ifahgdrrq [Mass/Vol] Magnesium [Mass/volume] in Serum or Plasma1.9-2.7FSelect Medical Specialty Hospital - CantonMonocytes Auto (Bld) [#/Vol]Ordered By: Valerio Zheng on 08-01-2024 Monocytes (Bld) [#/Vol]Automated blood monocyte count0.0-0.8[facility] HospitalMonocytes/100 WBC Auto (Bld)Ordered By: Valerio Zheng on 27-05-5182Tkjkhgyjy/100 WBC (Bld)Automated monocyte %.[facility] HospitalNeutrophils Auto (Bld) [#/Vol]Ordered By: Valerio Zheng on 26-39-4423Dbvawdmpefl (Bld) [#/Vol]Neutrophils [#/volume] in Blood by Automated count1.8-7.7FSelect Medical Specialty Hospital - CantonNeutrophils/100 WBC Auto (Bld) Ordered By: Valerio Zheng on 65-90-5877Rclackzhwmf/100 WBC (Bld)Automated neutrophil %.[facility] HospitalNo Panel InformationOrdered By: Valerio Zheng on 51-87-8644Wigelzkho GFR (CKD-EPI)> 60.0 mL/MinParma Community General HospitalPharmacy Creatinine Clearance (Chem98.12[facility] HospitalNucleated erythrocytes [Presence] in Blood by Automated countOrdered By: Valerio Zheng on 38-19-3692Wknkbcntn RBC Auto Ql (Bld) Nucleated erythrocytes [Presence] in Blood by Automated count0-0.5FSelect Medical Specialty Hospital - CantonPlatelet mean volume Auto (Bld) [Entitic vol]Ordered By: Valerio Zheng on 32-76-0087Wrpdjflm mean volume (Bld) [Entitic vol] Platelet mean volume [Entitic volume] in Blood by Automated count6.3-10.7 [facility] HospitalPlatelets Auto (Bld) [#/Vol]Ordered By: Valerio Zheng on 66-01-3140Zyvvtipji (Bld) [#/Vol]Platelets [#/volume] in Blood by Automated yprip677-569CrjjlqcocParma Community General HospitalPotassium [Moles/volume] in Serum or PlasmaOrdered By: Valerio Zheng on 08-01-2024 Potassium [Moles/Vol]Potassium [Moles/volume] in Serum or Plasma3.5-5.1FSelect Medical Specialty Hospital - CantonProtein [Mass/volume] in Serum or PlasmaOrdered By: Valerio Zheng on 37-30-5680Sudoclr [Mass/Vol]Protein [Mass/volume] in Serum or PlasmaLow6.4-8.9[facility] HospitalRBC Auto (Bld) [#/Vol] Ordered By: Valerio Zheng on 16-79-9135RYE (Bld) [#/Vol]Erythrocytes [#/volume] in Blood by Automated count3.60-5.00[facility] Serum or plasma albumin/globulin mass ratioOrdered By: Valerio Zheng on 83-58-5621Tmefvsa/Globulin [Mass ratio]Serum or plasma albumin/globulin mass ratioSouthern Ohio Medical Centererum or plasma anion gap determination Ordered By: Valerio Zheng on 73-62-3554Zyley gap [Moles/Vol]Serum or plasma anion gap determination6.0-15.0[facility] Medical Centererum or plasma non-glucuronidated bilirubin measurement (mass/volume)Ordered By: Valerio Zheng on 55-13-2909Sxiamhjap.indirect [Mass/Vol]Serum or plasma non-glucuronidated bilirubin measurement (mass/volume)[facility] Medical Centerodium [Moles/volume] in Serum or PlasmaOrdered By: Valerio Zheng on 25-83-4176Eghvla [Moles/Vol]Sodium [Moles/volume] in Serum or Fqfsxn468-352 [facility] HospitalUrea nitrogen [Mass/volume] in Serum or Plasma Ordered By: Valerio Zheng on 69-57-2133Vcei nitrogen [Mass/Vol]Urea nitrogen [Mass/volume] in Serum or Plasma7-25[facility] WBC Auto (Bld) [#/Vol]Ordered By: Valerio Zheng on 50-63-2583CES (Bld) [#/Vol]Leukocytes [#/volume] in Blood by Automated count3.8-11.6FSelect Medical Specialty Hospital - CantonAlanine aminotransferase [Enzymatic activity/volume] in Serum or PlasmaOrdered By: Catie Flores on 89-56-9595YTA [Catalytic activity/Vol]Alanine aminotransferase [Enzymatic activity/volume] in Serum or Plasma7-52[facility] HospitalAlbumin [Mass/volume] in Serum or Plasma by Bromocresol green (BCG) dye binding methoOrdered By: Catie Flores on 64-58-4457Tmkbyph BCG dye [Mass/Vol]Albumin [Mass/volume] in Serum or Plasma by Bromocresol green (BCG) dye binding metho3.5-5.7FSelect Medical Specialty Hospital - CantonAlkaline phosphatase [Enzymatic activity/volume] in Serum or PlasmaOrdered By: Catie Flores on 08-04-2595SBB [Catalytic activity/Vol]Alkaline phosphatase [Enzymatic activity/volume] in Serum or Rqpapb88-276BksflidjjParma Community General HospitalAmylaseon 34-37-5990Emjdgoc [Catalytic activity/Vol]36 U/STaobjd64-045Ubp [facility] Physician GroupComment on above:Performed By: #### LIPASE, CBC, HS TROP, YAZMIN, PT, HEPATIC, BMP, MG ####[facility] [address] [place] [address] USAAppearance of UrineOrdered By: Catie Flores on 62-85-4735Kdarooscdi (U)Urine appearanceAbnormalClearParma Community General HospitalAspartate aminotransferase [Enzymatic activity/volume] in Serum or Plasma Ordered By: Catie Flores on 21-72-2330DNQ [Catalytic activity/Vol]Aspartate aminotransferase [Enzymatic activity/volume] in Serum or ZkxzjhOgx30-36DrzjpsgbhParma Community General HospitalBacteria [Presence] in Urine by AutomatedOrdered By: Catie Flores on 64-36-6401Cqpdckcw Auto Ql (U)Bacteria [Presence] in Urine by AutomatedNone SeenParma Community General HospitalBasic Metabolic Panelon 58-40-5843Cdqii gap [Moles/Vol]10.8 mmol/LNormal6.0-15.0The [facility] Physician GroupComment on above:Performed By: #### LIPASE, CBC, HS TROP, YAZMIN, PT, HEPATIC, BMP, MG #### [place] [address] USACalcium [Mass/Vol]8.8 mg/dLNormal8.6-10.3The [facility] Physician GroupComment on above:Performed By: #### LIPASE, CBC, HS TROP, YAZMIN, PT, HEPATIC, BMP, MG #### [facility] [address] [place] [address] USAChloride [Moles/Vol]107 mmol/NOzhcds33-373Czt [facility] Physician GroupComment on above:Performed By: #### LIPASE, CBC, HS TROP, YAZMIN, PT, HEPATIC, BMP, MG #### [place] [address] USACO2 [Moles/Vol]26.5 mmol/PPlgxcq09.0-31.0The [facility] Physician GroupComment on above:Performed By: #### LIPASE, CBC, HS TROP, YAZMIN, PT, HEPATIC, BMP, MG #### [facility] [address] [place] [address] USACreatinine [Mass/Vol]0.83 mg/dLNormal0.60-1.20The [facility] Physician GroupComment on above:Performed By: #### LIPASE, CBC, HS TROP, YAZMIN, PT, HEPATIC, BMP, MG #### [place] [address] USACreatinine Clr Calc Oatqfxry35.17NormalThe [facility] Physician GroupComment on above:Performed By: #### LIPASE, CBC, HS TROP, YAZMIN, PT, HEPATIC, BMP, MG #### [place] [address] USAGFR/1.73 sq M.predicted MDRD (S/P/Bld) [Vol rate/Area] mL/min/{1.73_m2}NormalThe [facility] Physician GroupComment on above:Performed By: #### LIPASE, CBC, HS TROP, YAZMIN, PT, HEPATIC, BMP, MG #### [place] [address] USAGlucose [Mass/Vol]85 mg/mPGfwkxl36-210Fvh [facility] Physician GroupComment on above:Result Comment: Random Glucose Reference Range is dependent on time and content of last meal. Glucose of more than 200 mg/dL in a nonstressed, ambulatory subject supports the diagnosis of Diabetes Mellitus. ADA recommended reference rangePerformed By: #### LIPASE, CBC, HS TROP, YAZMIN, PT, HEPATIC, BMP, MG #### [facility] [address] [place] [address] USAPotassium [Moles/Vol]3.3 mmol/LLow3.5-5.1The [facility] Physician GroupComment on above:Performed By: #### LIPASE, CBC, HS TROP, YAZMIN, PT, HEPATIC, BMP, MG #### [facility] [address] [place] [address] USASodium [Moles/Vol]141 mmol/UOrmpzg541-910Ojs [facility] Physician GroupComment on above:Performed By: #### LIPASE, CBC, HS TROP, YAZMIN, PT, HEPATIC, BMP, MG #### [facility] [address] [place] [address] USAUrea nitrogen [Mass/Vol]14 mg/dLNormal7-25The [facility] Physician GroupComment on above:Performed By: #### LIPASE, CBC, HS TROP, YAZMIN, PT, HEPATIC, BMP, MG #### [place] [address] USABasophils Auto (Bld) [#/Vol]Ordered By: Catie Flores on 70-74-8554Alhfxxngf (Bld) [#/Vol]Automated basophil count0.0-0.2FSelect Medical Specialty Hospital - CantonBasophils/100 WBC Auto (Bld)Ordered By: Catie Flores on 32-00-6021Bmcltmjit/100 WBC (Bld)Automated basophil %.[facility] HospitalBilirubin Test strip Ql (U)Ordered By: Catie Flores on 07-31-2024 Bilirubin Ql (U)Bilirubin.total [Presence] in Urine by Test stripNegative [facility] HospitalBilirubin.direct [Mass/volume] in Serum or PlasmaOrdered By: Catie Flores on 10-52-3695Wpabbiuxk.direct [Mass/Vol] Bilirubin.direct [Mass/volume] in Serum or Plasma0.03-0.18FSelect Medical Specialty Hospital - CantonBilirubin.total [Mass/volume] in Serum or PlasmaOrdered By: Catie Flores on 59-91-1847Cjdppjmay [Mass/Vol]Bilirubin.total [Mass/volume] in Serum or Plasma0.3-1.0[facility] HospitalCT abdomen pelvis wo conon 16-64-2813BP abdomen pelvis wo [facility] [place] [address] CT Scan Report Signed Patient: Trudy Wilder MR#: [id number] 89 : 1975 Acct:[id number] Age/Sex: 48 / F ADM Date: 07/31/24 Loc: ER Room: Type: [facility] ER Attending Dr: Copies to: Catie [...] Del Real M.D.07/31/2024 9:42 AM Dictation Location: [place] [address] Transcribed By: [facility] 07/31/2442 Dictated By: Jennie Del Real MD 07/31/24 0936 Signed By: 07/31/2442[facility] Physician GroupCalcium [Mass/volume] in Serum or PlasmaOrdered By: Catie Flores on 69-06-6361Ankirce [Mass/Vol]Calcium [Mass/volume] in Serum or Plasma8.6-10.3FSelect Medical Specialty Hospital - CantonCarbon dioxide, total [Moles/volume] in Serum or PlasmaOrdered By: Catie Flores on 74-19-6528ZT7 [Moles/Vol]Carbon dioxide, total [Moles/volume] in Serum or Plasma 21.0-31.0[facility] HospitalCasts [Presence] in Urine by Automated Ordered By: Catie Flores on 76-22-3561Bjfoz Auto Ql (U)Casts [Presence] in Urine by AutomatedHighNone SeenParma Community General HospitalChloride [Moles/volume] in Serum or PlasmaOrdered By: Catie Flores on 21-79-9337Jpqswcaw [Moles/Vol]Chloride [Moles/volume] in Serum or Ptlplb63-139RieodlhwjParma Community General HospitalColor Auto (U)Ordered By: Catie Flores on 69-18-2024Okefz (U) Color of Urine by AutoYellowParma Community General HospitalComplete Blood Count Auto Diffon 58-33-1167Qqxkivjva (Bld) [#/Vol]0.0 10*3/uLNormal0.0-0.2The [facility] Physician GroupComment on above:Result Comment: PERFORMED BY: [place] [address] PATHOLOGIST ELEVATOR MECHANIC MILLER VO M.D.Performed By: #### LIPASE, CBC, HS TROP, YAZMIN, PT, HEPATIC, BMP, MG #### [place] [address] USABasophils/100 WBC (Bld)0.6 %Normal.The [facility] Physician GroupComment on above:Performed By: #### LIPASE, CBC, HS TROP, YAZMIN, PT, HEPATIC, BMP, MG #### [place] [address] USAEosinophils (Bld) [#/Vol]0.0 10*3/uLNormal0.0-0.45The [facility] Physician GroupComment on above:Performed By: #### LIPASE, CBC, HS TROP, YAZMIN, PT, HEPATIC, BMP, MG #### [place] [address] USAEosinophils/100 WBC (Bld)0.5 %Normal.The [facility] Physician GroupComment on above:Performed By: #### LIPASE, CBC, HS TROP, YAZMIN, PT, HEPATIC, BMP, MG #### [place] [address] USAErythrocyte distribution width (RBC) [Ratio]13.6 %Normal 11.9-15.3The [facility] Physician GroupComment on above:Performed By: #### LIPASE, CBC, HS TROP, YAZMIN, PT, HEPATIC, BMP, MG #### [place] [address] USAHematocrit (Bld) [Volume fraction]41.3 %Nilnxr59.0-46.4The [facility] Physician GroupComment on above:Performed By: #### LIPASE, CBC, HS TROP, YAZMIN, PT, HEPATIC, BMP, MG #### [place] [address] USAHemoglobin (Bld) [Mass/Vol]14.0 g/uLVaatkc97.8-15.4The [facility] Physician GroupComment on above:Performed By: #### LIPASE, CBC, HS TROP, YAZMIN, PT, HEPATIC, BMP, MG #### [place] [address] USALymphocytes (Bld) [#/Vol]2.8 10*3/uLNormal1.00-4.8The [facility] Physician GroupComment on above:Performed By: #### LIPASE, CBC, HS TROP, YAZMIN, PT, HEPATIC, BMP, MG #### [facility] [address] [place] [address] USALymphocytes/100 WBC (Bld)32.8 %Normal.The [facility] Physician GroupComment on above:Performed By: #### LIPASE, CBC, HS TROP, YAZMIN, PT, HEPATIC, BMP, MG #### [address] (RBC) [Entitic mass]30.1 wjZqwfah09.7-34.3The [facility] Physician GroupComment on above:Performed By: #### LIPASE, CBC, HS TROP, YAZMIN, PT, HEPATIC, BMP, MG #### [address] (RBC) [Entitic vol]88.7 nZIwecuh89-479Hxp [facility] Physician GroupComment on above:Performed By: #### LIPASE, CBC, HS TROP, YAZMIN, PT, HEPATIC, BMP, MG #### [place] [address] USAMean Corpuscular HGB Conc33.9 g/xMIrfuse69.0-35.0The [facility] Physician GroupComment on above:Performed By: #### LIPASE, CBC, HS TROP, YAZMIN, PT, HEPATIC, BMP, MG #### [place] [address] USAMonocytes (Bld) [#/Vol]0.6 10*3/uLNormal0.0-0.8The [facility] Physician GroupComment on above:Performed By: #### LIPASE, CBC, HS TROP, YAZMIN, PT, HEPATIC, BMP, MG #### [facility] [address] [place] [address] USAMonocytes/100 WBC (Bld)17.14 %Normal0.00-20.00The [facility] Physician GroupComment on above:Performed By: #### LIPASE, CBC, HS TROP, YAZMIN, PT, HEPATIC, BMP, MG #### [facility] [address] [place] [address] USAMonocytes/100 WBC (Bld)7.1 %Normal.The [facility] Physician GroupComment on above:Performed By: #### LIPASE, CBC, HS TROP, YAZMIN, PT, HEPATIC, BMP, MG #### [place] [address] USANeutrophils (Bld) [#/Vol]5.1 10*3/uLNormal1.8-7.7The [facility] Physician GroupComment on above:Performed By: #### LIPASE, CBC, HS TROP, YAZMIN, PT, HEPATIC, BMP, MG #### [place] [address] USANeutrophils/100 WBC (Bld)59.0 %Normal.The [facility] Physician GroupComment on above:Performed By: #### LIPASE, CBC, HS TROP, YAZMIN, PT, HEPATIC, BMP, MG #### [place] [address] USANRBC%0.1 /100{WBC}Normal0-0.5The [facility] Comment on above:Performed By: #### LIPASE, CBC, HS TROP, YAZMIN, PT, HEPATIC, BMP, MG #### [place] [address] USAPlatelet mean volume (Bld) [Entitic vol]8.5 fLNormal 6.3-10.7The [facility] Physician GroupComment on above:Performed By: #### LIPASE, CBC, HS TROP, YAZMIN, PT, HEPATIC, BMP, MG #### [place] [address] USAPlatelets (Bld) [#/Vol]248 10*3/wXOzrhti410-394Ryy [facility] Physician GroupComment on above:Performed By: #### LIPASE, CBC, HS TROP, YAZMIN, PT, HEPATIC, BMP, MG #### [facility] [address] [place] [address] USARBC (Bld) [#/Vol]4.66 10*6/uLNormal3.60-5.00The [facility] Physician GroupComment on above:Performed By: #### LIPASE, CBC, HS TROP, YAZMIN, PT, HEPATIC, BMP, MG #### [facility] [address] [place] [address] USAWBC (Bld) [#/Vol]8.6 10*3/uLNormal3.8-11.6The [facility] Physician GroupComment on above:Performed By: #### LIPASE, CBC, HS TROP, YAZMIN, PT, HEPATIC, BMP, MG #### [facility] [address] [place] [address] USACreatinine [Mass/volume] in Serum or PlasmaOrdered By: Catie Flores on 12-33-8901Lmjokwsytr [Mass/Vol]Creatinine [Mass/volume] in Serum or Plasma0.60-1.20[facility] HospitalDipstick and Microscopicon 40-08-4672Adgivzhbra (U)CloudyCritically abnormalClearThe [facility] Physician GroupComment on above:Order Comment: Name Collection Type:: Clean-Voided MidstreamPerformed By: #### UHCG, ADDONUAPLUS, CUU ####[place] [address] [place] [address] USABacteria,UrineNone SeenNormalNone SeenThe [facility] Physician [facility] Health MadisonComment on above:Order Comment: Name Collection Type:: Clean-Voided MidstreamPerformed By: #### UHCG, ADDONUAPLUS, CUU ####[place] [address] [place] [address] USABilirubin,UrineNegativeNormalNegativeThe [facility] Comment on above:Order Comment: Name Collection Type:: Clean-Voided Midstream Performed By: #### UHCG, ADDONUAPLUS, CUU ####[address] [address] USAColor (U)YellowNormalYellowThe [facility] Physician GroupComment on above:Order Comment: Name Collection Type:: Clean- Voided MidstreamPerformed By: #### UHCG, ADDONUAPLUS, CUU ####[address] [address] USAGlucose Ql (U)NormalNormal NormalThe [facility] Physician GroupComment on above:Order Comment: Name Collection Type:: Clean-Voided MidstreamPerformed By: #### UHCG, ADDONUAPLUS, CUU ####[address] [address] [place] Hyaline Casts,Urine0 [LPF]Normal0-8The [facility] Physician GroupComment on above:Order Comment: Name Collection Type:: Clean-Voided MidstreamPerformed By: #### UHCG, ADDONUAPLUS, CUU ####[address] [address] USAKetones Ql (U)NegativeNormalNegativeThe [facility] Physician GroupComment on above:Order Comment: Name Collection Type:: Clean- Voided MidstreamPerformed By: #### UHCG, ADDONUAPLUS, CUU ####[address] [address] USALeukocyte esterase Test strip Ql (U)2+HighNegativeThe [facility] Physician GroupComment on above:Order Comment: Name Collection Type:: Clean-Voided MidstreamPerformed By: #### UHCG, ADDONUAPLUS, CUU ####[address] [address] USAMucus,Urine4+Critically abnormalThe [facility] Physician GroupComment on above:Order Comment: Name Collection Type:: Clean-Voided MidstreamPerformed By: #### UHCG, ADDONUAPLUS, CUU ####[address] [address] USANitrite,UrineNegativeNormalNegativeThe [facility] Physician GroupComment on above:Order Comment: Name Collection Type:: Clean- Voided MidstreamPerformed By: #### UHCG, ADDONUAPLUS, CUU ####[address] [address] USAOccult Blood,UrineNegative NormalNegativeThe [facility] Physician GroupComment on above:Order Comment: Name Collection Type:: Clean-Voided MidstreamPerformed By: #### UHCG, ADDONUAPLUS, CUU ####[address] [address] [place] Other Casts,Urine1 [LPF]HighNone SeenThe [facility] Physician GroupComment on above:Order Comment: Name Collection Type:: Clean-Voided MidstreamPerformed By: #### UHCG, ADDONUAPLUS, CUU ####[place] [id number] USApH (U)5.5 [pH]Normal5.0-9.0The [facility] Physician GroupComment on above:Order Comment: Name Collection Type:: Clean-Voided MidstreamPerformed By: #### UHCG, ADDONUAPLUS, CUU ####[address] [address] USAProtein,UrineNegativeNormal NegativeThe [facility] Physician GroupComment on above:Order Comment: Name Collection Type:: Clean-Voided MidstreamPerformed By: #### UHCG, ADDONUAPLUS, CUU ####[address] [address] [place] RBC,Urine3 [HPF]Normal0-4The [facility] Physician GroupComment on above:Order Comment: Name Collection Type:: Clean-Voided MidstreamPerformed By: #### UHCG, ADDONUAPLUS, CUU ####[address] [address] USASpecificy [place],Urine1.127Cgmztp7.001-1.030The [facility] Physician GroupComment on above:Order Comment: Name Collection Type:: Clean-Voided MidstreamPerformed By: #### UHCG, ADDONUAPLUS, CUU ####[facility] [place] [address] USASquamous Epithelial Cell,Urine 5 [HPF]High0-2The [facility] Physician GroupComment on above:Order Comment: Name Collection Type:: Clean-Voided MidstreamPerformed By: #### UHCG, ADDONUAPLUS, CUU ####[place] [address] [place] [address] [facility] Urobilinogen,UrineNormalNormalNormalThe [facility] Physician GroupComment on above:Order Comment: Name Collection Type:: Clean-Voided MidstreamPerformed By: #### UHCG, ADDONUAPLUS, CUU ####[place] [address] [place] [address] USAWBC,Urine5 [HPF]High0-4The [facility] Comment on above:Order Comment: Name Collection Type:: Clean-Voided Midstream Performed By: #### UHCG, ADDONUAPLUS, CUU ####[place] [place] [address] USAECG 12 lead ECGon 30-90-3586WVJ 12 lead ECG [facility] [place] [address] Electrocardiograph Report Signed Patient: Trudy Wilder MR#: [id number] 89 : 1975 Acct:[id number] Age/Sex: 48 / F ADM Date: 07/31/24 Loc: Room: [address] [place] [address] Type: ADM INOo Attending Dr: Valerio Zheng [...] was found Confirmed by CATIE FLORES DO ([id number]) on 07/31/2024 4:21:03 PM Referred By: Electronically Signed By: CATIE FLORES DO Transcribed By: MUS Signed By Catie Flores DO 07/31 1621[facility] Physician GroupEosinophils Auto (Bld) [#/Vol]Ordered By: Catie Flores on 48-59-4506Vsqwzmzevsv (Bld) [#/Vol]Automated eosinophil count0.0-0.45[facility] HospitalEosinophils/100 WBC Auto (Bld) Ordered By: Catie Flores on 15-77-5307Tgqdswccdsn/100 WBC (Bld)Automated eosinophil %.[facility] HospitalEpithelial cells.squamous [#/area] in Urine sediment by Automated countOrdered By: Catie Flores on 07-31-2024 Epithelial cells.squamous Auto (Urine sed) [#/Area]Epithelial cells.squamous [#/area] in Urine sediment by Automated countHigh0-2FSelect Medical Specialty Hospital - CantonErythrocyte distribution width Auto (RBC) [Ratio]Ordered By: Catie Flores on 27-47-4668Qxwaqzuxaxp distribution width (RBC) [Ratio]Erythrocyte distribution width [Ratio] by Automated count11.9-15.3FSelect Medical Specialty Hospital - CantonErythrocytes [#/area] in Urine sediment by Automated countOrdered By: Catie Flores on 37-54-9542CBF Auto (Urine sed) [#/Area]Erythrocytes [#/area] in Urine sediment by Automated count0-4FSelect Medical Specialty Hospital - CantonGlobulin Calc (S) [Mass/Vol]Ordered By: Catie Flores on 67-06-8919Bheqhknj (S) [Mass/Vol]Serum globulin measurement by calculation (mass/volume)[facility] HospitalGlucose [Mass/volume] in Serum or PlasmaOrdered By: Catie Flores on 03-84-9898Upzkcpu [Mass/Vol]Glucose [Mass/volume] in Serum or Plasma 70-100[facility] HospitalComment on above:ADA recommended reference rangeRandom Glucose Reference Range is dependent on time and content of last meal. Glucose of more than 200 mg/dL in a nonstressed, ambulatory subject supports the diagnosisof Diabetes Mellitus.Glucose [Mass/volume] in Urine by Test stripOrdered By: Catie Flores on 64-34-7947Ikfjzow Test strip (U) [Mass/Vol]Glucose [Mass/volume] in Urine by Test stripNormalParma Community General HospitalHCG ( test) IA.rapid Ql (U)Ordered By: Catie Flores on 63-21-0726HDP ( test) Ql (U)Urine human chorionic gonadotropin (hCG) detection by immunoassayParma Community General HospitalHCG,Urineon 07-31-2024 Beta HCG ( test) Ql (U)NegativeNormOrlando Health [facility] Physician Group Comment on above:Order Comment: Name Collection Type:: Clean-Voided Midstream Result Comment: PERFORMED BY: [place] [address] PATHOLOGIST ELEVATOR MECHANIC MILLER VO M.D.Performed By: #### ERVIN, ALEXANDER MOYER ####[facility] [id number] Hematocrit Auto (Bld) [Volume fraction]Ordered By: Catie Flores on 07-31-2024 Hematocrit (Bld) [Volume fraction]Hematocrit [Volume Fraction] of Blood by Automated count34.0-46.4FSelect Medical Specialty Hospital - CantonHemoglobin Test strip Ql (U)Ordered By: Catie Flores on 32-82-5038Mxbkpvlemn Ql (U)Hemoglobin [Presence] in Urine by Test stripNegativeParma Community General Hospital Hemoglobin [Mass/volume] in BloodOrdered By: Catie Flores on 07-31-2024 Hemoglobin (Bld) [Mass/Vol]Hemoglobin [Mass/volume] in Blood11.8-15.4FSelect Medical Specialty Hospital - CantonHepatic Panelon 16-99-0807Nqfsegy [Mass/Vol]4.0 g/dL Normal3.5-5.7The [facility] Physician GroupComment on above:Performed By: #### LIPASE, CBC, HS TROP, YAZMIN, PT, HEPATIC, BMP, MG #### [facility] [address] [place] [address] USAAlbumin/Globulin [Mass ratio]1.7 {ratio}NormalThe [facility] Physician GroupComment on above:Performed By: #### LIPASE, CBC, HS TROP, YAZMIN, PT, HEPATIC, BMP, MG #### [facility] [address] [place] [address] USAALP [Catalytic activity/Vol]79 U/HAnnmzq04-957Cfl [facility] Physician GroupComment on above:Performed By: #### LIPASE, CBC, HS TROP, YAZMIN, PT, HEPATIC, BMP, MG #### [facility] [address] [place] [address] USAALT [Catalytic activity/Vol]10 U/LNormal7-52The [facility] Holly Physician GroupComment on above:Performed By: #### LIPASE, CBC, HS TROP, YAZMIN, PT, HEPATIC, BMP, MG #### [place] [address] USAAST [Catalytic activity/Vol]11 U/SPxo78-88Vms [facility] Physician GroupComment on above:Performed By: #### LIPASE, CBC, HS TROP, YAZMIN, PT, HEPATIC, BMP, MG #### [place] [address] USABilirubin [Mass/Vol]0.6 mg/dLNormal0.3-1.0The [facility] Physician GroupComment on above:Performed By: #### LIPASE, CBC, HS TROP, YAZMIN, PT, HEPATIC, BMP, MG #### [place] [address] USABilirubin,Indirect0.5 mg/dLNormalThe [facility] Physician GroupComment on above:Performed By: #### LIPASE, CBC, HS TROP, YAZMIN, PT, HEPATIC, BMP, MG #### [place] [address] USABilirubin.indirect [Mass/Vol]0.10 mg/dLNormal0.03-0.18The [facility] Physician GroupComment on above:Performed By: #### LIPASE, CBC, HS TROP, YAZMIN, PT, HEPATIC, BMP, MG #### [place] [address] USAGlobulin (S) [Mass/Vol]2.4 g/dLNormMartins Ferry Hospitale [facility] Physician GroupComment on above:Performed By: #### LIPASE, CBC, HS TROP, YAZMIN, PT, HEPATIC, BMP, MG #### [facility] [address] [place] [address] USAProtein [Mass/Vol]6.4 g/dLNormal6.4-8.9The [facility] Physician GroupComment on above:Performed By: #### LIPASE, CBC, HS TROP, YAZMIN, PT, HEPATIC, BMP, MG #### [facility] [address] [place] [address] USAHyaline casts [#/area] in Urine sediment by Automated countOrdered By: Catie Flores on 03-63-0567Exjurzm casts Auto (Urine sed) [#/Area]Hyaline casts [#/area] in Urine sediment by Automated count0-8[facility] HospitalINR in Platelet poor plasma by Coagulation assayOrdered By: Catie Flores on 60-56-6004CIC Coag (PPP) [Relative time]INR in Platelet poor plasma by Coagulation assayParma Community General HospitalComment on above:INR Therapeutic Range A) Pre- and Peroperative OAT started two weeks before surgery. NOT HIP SURGERY: 1.5 - 2.5 HIP SURGERY: 2 - 3B) Primary and secondary prevention of venous THROMBOSIS: 2 - 3C) Active venous thrombosis, pulmonary embolismand prevention of recurrent venous thrombosis: 2 - 3D) Preve ntion of arterial thromboembolismincluding patients with mechanical heart valves: 3 - 4.5Ketones Test strip Ql (U)Ordered By: Catie Flores on 07-31-2024 Ketones Ql (U)Ketones [Presence] in Urine by Test stripNegHighland District HospitalLeukocyte esterase [Presence] in Urine by Test strip Ordered By: Catie Flores on 72-30-5675Auifooesu esterase Test strip Ql (U) Leukocyte esterase [Presence] in Urine by Test stripHighNegHighland District HospitalLeukocytes [#/area] in Urine sediment by Automated count Ordered By: Catie Flores on 96-04-0714HVM Auto (Urine sed) [#/Area]Leukocytes [#/area] in Urine sediment by Automated countHigh04FSelect Medical Specialty Hospital - CantonLeukocytes [#/volume] corrected for nucleated erythrocytes in Blood by Automated counOrdered By: Catie Flores on 14-80-3816CXU corrected for nucl RBC Auto (Bld) [#/Vol]Leukocytes [#/volume] corrected for nucleated erythrocytes in Blood by Automated coun3.8-11.6FSelect Medical Specialty Hospital - CantonLipaseon 16-12-9920Ctmzye [Catalytic activity/Vol]30.0 U/LSghtim30.0-82.0The [facility] Physician GroupComment on above:Result Comment: PERFORMED BY: [place] [address] PATHOLOGIST ELEVATOR MECHANIC MILLER VO M.D.Performed By: #### LIPASE, CBC, HS TROP, YAZMIN, PT, HEPATIC, BMP, MG #### [facility] [address] [place] [address] USAPerformed By: #### LIPASE, CBC, HS TROP, YAZMIN, PT, HEPATIC, BMP, MG ####[facility] [address] [place] [address] USALipase [Enzymatic activity/volume] in Serum or PlasmaOrdered By: Catie Flores on 49-83-2996Qthjic [Catalytic activity/Vol]Lipase [Enzymatic activity/volume] in Serum or Cwqikf70.0-82.0[facility] Lymphocytes Auto (Bld) [#/Vol]Ordered By: Catie Flores on 16-79-6094Ixxggdfdqjg (Bld) [#/Vol]Lymphocytes [#/volume] in Blood by Automated count1.00-4.8 [facility] HospitalLymphocytes/100 WBC Auto (Bld)Ordered By: Catie Flores on 72-06-0760Qozirephxnb/100 WBC (Bld)Lymphocytes/100 leukocytes in Blood by Automated count.[facility] Auto (RBC) [Entitic mass]Ordered By: Catie Flores on 89-54-1742JPS (RBC) [Entitic mass]MCH [Entitic mass] by Automated count24.7-34.3FTrinity Health System Twin City Medical CenterHC Auto (RBC) [Mass/Vol]Ordered By: Catie Flores on 68-08-5702WYIP (RBC) [Mass/Vol]MCHC [Mass/volume] by Automated count32.0-35.0[facility] HospitalMCV Auto (RBC) [Entitic vol]Ordered By: Catie Flores on 77-27-5170XMA (RBC) [Entitic vol]MCV [Entitic volume] by Automated edwob61-187 [facility] HospitalMagnesiumon 01-53-7858Hqdtoufqg [Mass/Vol]1.9 mg/dLNormal1.9-2.7The [facility] Physician GroupComment on above:Performed By: #### LIPASE, CBC, HS TROP, YAZMIN, PT, HEPATIC, BMP, MG ####[facility] [address] [place] [address] USAMagnesium [Mass/volume] in Serum or PlasmaOrdered By: Catie Flores on 61-14-1307Lbkszphnz [Mass/Vol] Magnesium [Mass/volume] in Serum or Plasma1.9-2.7FSelect Medical Specialty Hospital - CantonMonocyte distribution width [Entitic volume] in Blood by AutomatedOrdered By: Catie Flores on 61-28-5246Iqbpwfks distribution width Auto (Bld) [Entitic vol]Monocyte distribution width [Entitic volume] in Blood by Automated0.00-20.00 [facility] HospitalMonocytes Auto (Bld) [#/Vol]Ordered By: Catie Flores on 91-89-6743Cqsxvleko (Bld) [#/Vol]Automated blood monocyte count 0.0-0.8[facility] HospitalMonocytes/100 WBC Auto (Bld)Ordered By: Catie Flores on 73-45-3242Iliuklfdq/100 WBC (Bld)Automated monocyte %.[facility] HospitalMucus [Presence] in Urine by AutomatedOrdered By: Catie Flores on 99-83-3681Usupb Auto Ql (U)Mucus [Presence] in Urine by Automated AbnormalParma Community General HospitalNeutrophils Auto (Bld) [#/Vol]Ordered By: Catie Flores on 71-50-2734Isussifmoqv (Bld) [#/Vol]Neutrophils [#/volume] in Blood by Automated count1.8-7.7FSelect Medical Specialty Hospital - Canton Neutrophils/100 WBC Auto (Bld)Ordered By: Catie Flores on 07-31-2024 Neutrophils/100 WBC (Bld)Automated neutrophil %.[facility] HospitalNitrite Test strip Ql (U)Ordered By: Catie Flores on 31-27-3745Rjmexgx Ql (U)Nitrite [Presence] in Urine by Test stripNegHighland District HospitalNo Panel InformationOrdered By: Catie Flores on 08-22-6623Hcfejpqzc GFR (CKD-EPI)> 60.0 mL/MinParma Community General HospitalPharmacy Creatinine Clearance (Chem[address] [place], [place] [address]Nucleated erythrocytes [Presence] in Blood by Automated countOrdered By: Catie Flores on 07-31-2024 Nucleated RBC Auto Ql (Bld)Nucleated erythrocytes [Presence] in Blood by Automated count0-0.5FSelect Medical Specialty Hospital - CantonPlatelet mean volume Auto (Bld) [Entitic vol]Ordered By: Catie Flores on 96-54-2981Uqxpieas mean volume (Bld) [Entitic vol]Platelet mean volume [Entitic volume] in Blood by Automated count6.3-10.7FSelect Medical Specialty Hospital - CantonPlatelets Auto (Bld) [#/Vol] Ordered By: Catie Flores on 75-07-3518Kpzublswh (Bld) [#/Vol]Platelets [#/volume] in Blood by Automated xolwx780-207NplloadfwParma Community General Hospital Potassium [Moles/volume] in Serum or PlasmaOrdered By: Catie Flores on 05-82-7905Dwyvlhplr [Moles/Vol]Potassium [Moles/volume] in Serum or PlasmaLow 3.5-5.1FSelect Medical Specialty Hospital - CantonProtein Test strip (U) [Mass/Vol]Ordered By: Catie Flores on 38-37-1043Nbvdbpl (U) [Mass/Vol]Protein [Mass/volume] in Urine by Test stripNegHighland District HospitalProtein [Mass/volume] in Serum or PlasmaOrdered By: Catie Flores on 72-79-9266Oryqcme [Mass/Vol]Protein [Mass/volume] in Serum or Plasma6.4-8.9[facility] HospitalProthrombin Time INRon 87-42-9546KSU Coag (PPP) [Relative time]1.0 {INR}NormalThe [facility] Physician GroupComment on above:Result Comment: INR Therapeutic Range A) Pre- and [...] heart valves: 3 - 4.5 PERFORMED BY: [facility] [address] [place] [address] PATHOLOGIST ELEVATOR MECHANIC MILLER VO M.D.Performed By: #### LIPASE, CBC, HS TROP, YAZMIN, PT, HEPATIC, BMP, MG ####[facility] [place] [id number] USAPT Coag (PPP) [Time]12.0 sNormal9.0-12.9The [facility] Comment on above:Result Comment: A hematocrit value greater than 55% may lead to inaccurate results in coagulation testing. Patients having hematocrit values >55% require a special collection tube for coagulation studies. Please contact the laboratory at [phone] for redraw instructions.Performed By: #### LIPASE, CBC, HS TROP, YAZMIN, PT, HEPATIC, BMP, MG ####[facility] [address] [place] [id number] [facility] Prothrombin time (PT)Ordered By: Catie Flores on 10-43-1569CX Coag (PPP) [Time] Prothrombin time (PT)9.0-12.9[facility] HospitalComment on above:A hematocrit value greater than 55% may lead to inaccurate results in coagulation testing. Patientshaving hematocrit values >55% require a special collection tube for coagulation studies. Please contact the laboratory at [phone] for redraw instructions.RBC Auto (Bld) [#/Vol]Ordered By: Catie Flores on 45-84-8761DHS (Bld) [#/Vol]Erythrocytes [#/volume] in Blood by Automated count 3.60-5.00[facility] Medical Centererum or plasma albumin/globulin mass ratioOrdered By: Catie Flores on 08-11-4227Nuzaxpp/Globulin [Mass ratio]Serum or plasma albumin/globulin mass ratioSouthern Ohio Medical Centererum or plasma anion gap determinationOrdered By: Catie Flores on 00-55-8202Lbasd gap [Moles/Vol]Serum or plasma anion gap determination6.0-15.0[facility] Centererum or plasma non-glucuronidated bilirubin measurement (mass/volume)Ordered By: Catie Flores on 80-97-4901Wpmrqjmtp.indirect [Mass/Vol]Serum or plasma non-glucuronidated bilirubin measurement (mass/volume) [facility] Centerodium [Moles/volume] in Serum or PlasmaOrdered By: Catie Flores on 08-68-9197Lezgmu [Moles/Vol]Sodium [Moles/volume] in Serum or Tkqalw449-599HdgymuoswSouthern Ohio Medical Centerpecific gravity Test strip (U) [Rel density]Ordered By: Catie Flores on 75-21-4557Yaibqsec gravity (U) [Rel density]Specific gravity of Urine by Test strip1.001-1.030[facility] HospitalTroponin I High Sensitivityon 39-76-6032Rfuwtazd I High Sensitivity6.5 pg/mLNormal0.0-15.0The [facility] Physician GroupComment on above: Result Comment: PERFORMED BY: [place] [address] PATHOLOGIST ELEVATOR MECHANIC MILLER VO M.D.Performed By: #### LIPASE, CBC, HS TROP, YAZMIN, PT, HEPATIC, BMP, MG #### [place] [address] USATroponin I.cardiac [Mass/volume] in Serum or Plasma by Detection limit <= 0.01 ng/Ordered By: Catie Flores on 81-70-6836Vubbzdvb I.cardiac DL <= 0.01 ng/mL [Mass/Vol]Troponin I.cardiac [Mass/volume] in Serum or Plasma by Detection limit <= 0.01 ng/0.0-15.0[facility] HospitalUrea nitrogen [Mass/volume] in Serum or PlasmaOrdered By: Catie Flores on 14-02-0319Atbd nitrogen [Mass/Vol]Urea nitrogen [Mass/volume] in Serum or Plasma7-[facility] HospitalUrine Cultureon 55-42-3796Ejnttijl identified Cx Nom (U)No Growth 2 Days PERFORMED BY: [facility] [address] [place] [address] PATHOLOGIST ELEVATOR MECHANIC MILLER VO M.D.[facility] Physician GroupComment on above: Performed By: #### UHCG, ADDONUAPLUS, CUU ####[facility] [address] [place] [address] USAUrobilinogen Test strip (U) [Mass/Vol]Ordered By: Catie Flores on 20-43-2447Gdnvfoxrnydz (U) [Mass/Vol]Urobilinogen [Mass/volume] in Urine by Test stripNormCleveland Clinic Euclid HospitalWBC Auto (Bld) [#/Vol]Ordered By: Catie Flores on 54-51-5073CMU (Bld) [#/Vol] Leukocytes [#/volume] in Blood by Automated count3.8-11.6FSelect Medical Specialty Hospital - CantonpH Test strip (U)Ordered By: Catie Flores on 13-83-8721vU (U)pH of Urine by Test strip5.0-9.0[facility] HospitalChlam & GC, DNAon 60-05-7600Xchpincju, DNANegativeNormalNegativeMount Carmel Health System Comment on above:Result Comment: The APTIMA Combo 2 Assay is a target amplification nucleic acid probe test that utilizes target capture for the in- vitro qualitative detection of ribosomal RNA (rRNA) form Chlamydia tr achomatis/CT and /or Neisseria gonorrhoeae/GC. A negative result does not preclude the presence of a CT or GC infection because results are dependent of adequate specimen collection, absence of inhibitors and sufficient rRNA to be detected. Results from the APTIMA Combo 2 Assay should be interpreted in conjunction with other laboratory and clinical data available to the clinician.Performed By: #### CD:[id number] #### [address] [address]Lqofjjvsk, DNANegativeNormalNegativeMount Carmel Health SystemComment on above:Result Comment: The APTIMA Combo 2 Assay is a target amplification nucleic acid probe test that utilizes target capture for the in- vitro qualitative detection of ribosomal RNA (rRNA) form Chlamydia tr achomatis/CT and /or Neisseria gonorrhoeae/GC A negative result does not preclude the presence of a CT or GC infection because results are dependent of adequate specimen collection, absence of inhibitors and sufficient rRNA to be detected. Results from the APTIMA Combo 2 Assay should be interpreted in conjunction with other laboratory and clinical data available to the clinician.Performed By: #### CD:[id number] #### [address] [address]Hpraayirrj species, PCR-[facility] 25-67-4758Enlecbkv Source (URRP)-FreeportVaginalNormalMount Carmel Health SystemComment on above:Performed By: #### CD:[id number] #### [address] [address]Sshtrpwhyj parvum PCR-FreeportPositiveAbnormalNot Applicable [facility] Health SystemComment on above:Result Comment: ADDITIONAL INFORMATION This test was developed and its performance characteristics determined by [facility] in a manner consistent with CLIA requirements. This test has not been cleared or approved by the U.S. Food and Drug Administration. Test Performed by: [address] [address] Counseling Center Manager: Rudolph Garcia Ph.D.; CLIA# [id number] By: #### CD:[id number] #### [address] [address]Gwdxqccbrb urealyticum PCR-FreeportNegativeNormalNot Applicable [facility] SystemComment on above:Performed By: #### CD:[id number] #### [address] [address]Tqbezytsmz hominis, PCR-[facility] 40-63-9700Zasdyknmvs hominis PCR-FreeportNegativeNormalNot ApplicableMount Carmel Health SystemComment on above:Result Comment: ADDITIONAL INFORMATION This test was developed and its performance characteristics determined by [facility] in a manner consistent with CLIA requirements. This test has not been cleared or approved by the U.S. Food and Drug Administration. Test Performed by: [facility] - [address] [address] Counseling Center Manager: Rudolph Garcia Ph.D.; CLIA# [id number] By: #### CD:[id number] #### [address] [address]Keylzyea Source (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 Comparison is made to exams dated: 12/27/2021 mammogram, 01/13/2023 mammogram, and 12/25/2020 mammogram- [facility]. The breasts are heterogeneously dense, which may obscure small masses. Current study was also evaluated with a Computer Aided Detection (CAD) system. There are benign nodules in the right breast. There also are benign scattered calcifications in theright breast. No significant masses, calcifications, or other [...] may not be detected on mammograms. The [employer] supports annual screening mammography starting at age 40. Mandy Daly MD [facility]penrad:02/15/2024 14:48:25 Corn Sheller(s): Mary Almanza RT(R)(M)(CT), [facility] letter sent: New Mammo Normal B1/2 Mammogram [...] History Alcohol Never Nutrition/Health (more content not included)...[facility]ullOR Trackon 48-56-6625Ymjchcmtd [facility] Comment on above:Performed By: #### CD:[id number] #### [facility] [address] [place], [place] [address]DLE4,2 Ql PCR,Swab-[facility] 39-72-7076Oxgnel Source-[facility] SystemComment on above:Performed By: #### CD:[id number] #### [facility] [address] [place], [place] [address]SXP 1 PCR-[facility] Comment on above:Result Comment: RESULT: Test Not Performed Herpes Simplex Virus, PCR, Varies was cancelled on 07/21/2024 at 07:20; Per provider's request. Test Performed by: [facility] [address] [place] [address] Counseling Center Manager: Rudolph Garcia Ph.D.; CLIA# [id number] By: #### CD:[id number] #### [address] [address]BVL 2 PCR-[facility] SystemComment on above:Performed By: #### CD:[id number] #### [address] [address]Medhlcxqnj Office/Clinic Noteon 40-32-5050Nqeweuqfsg Office/Clinic NoteChief Complaint Possible vaginal infection. History of Present [...] testing and BV. She had testing in [place] and +Ureaplasma/mycoplasma treated with Azithromycin approx 1 week ago.No bowel/bladder complaints. 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 Contraception Contraception TypeNone Review of [...] reviewed the patient?s medication list for medication interactions/contraindications and/or for upcoming procedures: no Time Spent [...] Bone Density No qu (more content not included)...NormalTwin City Hospital SystemOR Track on 78-79-3543Hcqndsahp Received From [facility] HospitalComment on above:Performed By: #### CD:[id number] #### [address] [address]Lfczfkr Panel DNAon 94-23-5441Ginnozcsp VaginosisNegative NormalNegativeMount Carmel Health SystemComment on above:Performed By: #### CD:[id number] #### [address] [address]Bglfozn glabrata/kruseiNot detectedNormalNot DetectedMount Carmel Health SystemComment on above:Performed By: #### CD:[id number] #### [address] [address]Ipdjrrc groupNot detectedNormalNot DetectedMount Carmel Health SystemComment on above:Performed By: #### CD:[id number] #### [address] [address]Xcmotfykazx vaginalisNot detectedNormalNot DetectedMount Carmel Health SystemComment on above:Performed By: #### CD:[id number] #### [facility] [address] [place], [place] [address]NSGFZTLRYIDMK INFECTION (HTRX)on 64-42-7140SBFFBXACDCVPN KTRAKZQO7FJKG HealthcareACINETOBACTER BAUMANIINot detectedNOMS Healthcare ATOPOBIUM GZLLXGE9HKFZ HealthcareATOPOBIUM VAGINAENot detectedNOMS Healthcare BVAB 2,3 (BACTERIAL VAGINOSIS ASSOCIATED BACTERIA 2, 3); MOBILUNCUS XGB5ZVJK HealthcareBVAB 2,3 (BACTERIAL VAGINOSIS ASSOCIATED BACTERIA 2, 3); MOBILUNCUS SPPNot detectedNOMS HealthcareCANDIDA ALBICANS, PARAPSILOSIS, PVQLMPAAUQ8KCHV HealthcareCANDIDA ALBICANS, PARAPSILOSIS, TROPICALISNot detectedNOMS Healthcare ESTHELA GINVHGIL5QTGR HealthcareCANDIDA GLABRATANot detectedNOMS Healthcare ESTHELA QLAHJV2TTMR HealthcareCANDIDA KRUSEINot detectedNOMS HealthcareCHLAMYDIA PMXPBWHATFD9NTWS HealthcareCHLAMYDIA TRACHOMATISNot detectedNOMS Healthcare CITROBACTER WZMDQYNE3AJNN HealthcareCITROBACTER FREUNDIINot detectedNOMS HealthcareENTEROBACTER AEROGENES, VUONWTL0QKSZ HealthcareENTEROBACTER AEROGENES, CLOACAENot detectedNOMS HealthcareENTEROCOCCUS FAECALIS, JULJSYT3IHKZ HealthcareENTEROCOCCUS FAECALIS, FAECIUMNot detectedNOMS HealthcareESCHERICHIA MYJJ7PZSH HealthcareESCHERICHIA COLINot detectedNOMS HealthcareGARDNERELLA NBVMCIFND7LIQI HealthcareGARDNERELLA VAGINALISNot detectedNOMS Healthcare Interpretation and review of laboratory resultsAbnormalNOMS HealthcareKLEBSIELLA PNEUMONIAE, GFOJSXN8VROU HealthcareKLEBSIELLA PNEUMONIAE, OXYTOCANot detected NOMS HealthcareMEGASPHAERA (TYPES 1, 2)0NOMS HealthcareMEGASPHAERA (TYPES 1, 2) Not detectedNOMS HealthcareMORGANELLA TGRIMODW9KNBS HealthcareMORGANELLA MORGANIINot detectedNOMS HealthcareMYCOPLASMA BOFWYTSTKF1ZUFM Healthcare MYCOPLASMA GENITALIUMNot detectedNOMS HealthcareMYCOPLASMA KYYFWXD0WYRH HealthcareMYCOPLASMA HOMINISNot detectedNOMS HealthcareNEISSERIA GONORRHOEAE0 NOMS HealthcareNEISSERIA GONORRHOEAENot detectedNOMS HealthcarePROTEUS MIRABILIS, PJKESAJK0RCMT HealthcarePROTEUS MIRABILIS, VULGARISNot detectedNOMS HealthcarePSEUDOMONAS FJFCQSHPGJ6EJTU HealthcarePSEUDOMONAS AERUGINOSANot detectedNOMS HealthcareSERRATIA QNWLYGRYSQ9PIXW HealthcareSERRATIA MARCESCENSNot detectedNOMS HealthcareSTAPHYLOCOCCUS NDPKEN1ULOE HealthcareSTAPHYLOCOCCUS AUREUSNot detectedNOMS HealthcareSTAPHYLOCOCCUS EPIDERMIDIS, HAEMOLYTICUS, ZPHKIUCLLYK3VJPM HealthcareSTAPHYLOCOCCUS EPIDERMIDIS, HAEMOLYTICUS, LUGDUNENSIS Not detectedNOMS HealthcareSTAPHYLOCOCCUS WQCVTHIJRDIKV2JJWC Healthcare STAPHYLOCOCCUS SAPROPHYTICUSNot detectedNOMS HealthcareSTREPTOCOCCUS AGALACTIAE (GROUP B STREP)0NOMS HealthcareSTREPTOCOCCUS AGALACTIAE (GROUP B STREP)Not detectedNOMS HealthcareSTREPTOCOCCUS PYOGENES (GROUP A STREP)0[facility] Healthcare STREPTOCOCCUS PYOGENES (GROUP A STREP)Not detectedNOMS HealthcareTET B, TET M 27.52AbnormalNOMS HealthcareTET B, TET MDetectedAbnormalNOMS Healthcare TRICHOMONAS FMFOOSBVV5FWMR HealthcareTRICHOMONAS VAGINALISNot detectedNOMS HealthcareUREAPLASMA ACRVWY53.88AbnormalNOMS HealthcareUREAPLASMA PARVUMDetected AbnormalNOMS HealthcareUREAPLASMA KQEOICNYCXT4CGGI HealthcareUREAPLASMA UREALYTICUMNot detectedNOMS HealthcareNOMS HealthcareLaboratory - Chemistry and Chemistry - challengeon 21-49-4184Oexzmcuww Ql (U)NegativeNOMS HealthcareGlucose [Mass/Vol]NegativeNOMS HealthcareKetones Ql (U)NegativeNOMS HealthcarepH (U)6 [pH]NOMS HealthcareSpecific gravity (U) [Rel density]1.005N[facility] Urobilinogen (U) [Mass/Vol]0.729878 mg/dLNOMS HealthcareLaboratory - Hematology and Cell countson 35-46-0501Zefnbcjdoa Ql (U)TraceNOMS HealthcareLaboratory - Urinalysison 90-13-9275Mjxdiqf Ql (U)NegativeNOMS HealthcareProtein Ql (U) NegativeNOMS HealthcareNo Panel Informationon 08-40-9909Tpfnepmvvubcwz and review of laboratory resultsAbnormalNOMS HealthcareLEUKOCYTESTraceNOMS HealthcareNOMS HealthcareVC EXT VENOUS REFLUX FARIHA LMTDon 47-03-7092[place] [address] Vein Report Signed Patient: TRUDY WILDER MR#: [id number] : 1975 Acct:[id number] Age/Sex: 48 / F ADM Date: 11/05/23 Loc: [facility] Attending Dr: Elder Cerda M.D. Ordering Physician: Elder Cerda M.D. Date of Service: 11/05/23 Procedure(s): VC EXT Venous Reflux FARIHA LMTD Accession Number(s): [id number] cc: Viral Lewis M.D.; Elder Cerda M.D. Patient Name: TRUDY WILDER MR#: [id number] : 1975 Exam Date: 11/05/2023 Ordering Doctor: DR ELDER CERDA M.D. RADIOLOGY REPORT PROCEDURE: VC EXT VENOUS REFLUX FARIHA LMTD COMPARISON: None. INDICATIONS: I83.813 Bilateral painful [...] chronic thrombus visualized Compressibility: Normal Flow: Normal Computer Service Technician: Dist/med calf 3.1mm with 0s reflux. Tech Note: No incompetent or varicose veins present. CONCLUSION: 1. 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 Dictated by: Ty Aguirre M.D. on 11/05/2023 at 14:25 Approved by: Ty Aguirre M.D. on 11/05/2023 at 15:24 Dictated By: Ty Aguirre M.D. Signed By: 11/05/23 1525 DD/ 1524 TD/TT: Cable Television Access Coordinator:TBHRadiology, Radiologist, MD - 11/05/2023 [place] [address] Vein Report Signed Patient: TRUDY WILDER MR#: [id number] : 1975 Acct:[id number] Age/Sex: 48 / F ADM Date: 11/05/23 Loc: VC Attending Dr: Elder Cerda M.D. Ordering Physician: Elder Cerda M.D. Date of Service: 11/05/23 Procedure(s): VC EXT Venous Reflux FARIHA LMTD Accession Number(s): [id number] cc: Viral Lewis M.D.; Elder Cerda M.D. Patient Name: TRUDY WILDER MR#: [id number] : 1975 Exam Date: 11/05/2023 Ordering Doctor: DR ELDER CERDA M.D. RADIOLOGY REPORT PROCEDURE: VC EXT VENOUS REFLUX FARIHA LMTD COMPARISON: None. INDICATIONS: I83.813 Bilateral painful [...] chronic thrombus visualized Compressibility: Normal Flow: Normal Computer Service Technician: Dist/med calf 3.1mm with 0s reflux. Tech Note: No incompetent or varicose veins present. CONCLUSION: 1. 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 Dictated by: Ty Aguirre M.D. on 11/05/2023 at 14:25 Approved by: Ty Aguirre M.D. on 11/05/2023 at 15:24 Dictated By: Ty Aguirre M.D. Signed By: 11/05/23 1525 DD/ 1524 TD/TT: Cable Television Access Coordinator: JOSE DAVID JjRadiology Study observation (narrative)JOSE DAVID HealthcareVC EXT VENOUS REFLUX FARIHA LMTDOrdered By: Radiologist Radiology on 58-46-8127IHDW [employer] Work Phone: [facility] EST COMPREHENSIVEon [phone] [address] Vein Report Signed Patient: TRUDY WILDER MR#: [id number] : 1975 Acct:[id number] Age/Sex: 48 / F ADM Date: 11/05/23 Loc: Attending Dr: Elder Cerda M.D. Ordering Physician: Elder Cerda M.D. Date of Service: 11/05/23 Procedure(s): [facility] Accession Number(s): [id number] cc: Viral Lewis M.D.; Elder Cerda M.D. Patient Name: TRUDY WILDER MR#: [id number] : 1975 Exam Date: 11/05/2023 Ordering Doctor: DR ELDER CERDA M.D. RADIOLOGY REPORT PROCEDURE: [facility] VEIN CENTER - OFFICE VISIT INITIAL COMPARISON: [...] Aguirre M.D. Signed By: 11/05/23 1537 DD/ 153 (more content not included)...TBHRadiology, Radiologist, - 11/05/[address] [address] Vein Report Signed Patient: TRUDY WILDER MR#: [id number] : 1975 Acct:[id number] Age/Sex: 48 / F ADM Date: 11/05/23 Loc: Attending Dr: Elder Cerda M.D. Ordering Physician: Elder Cerda M.D. Date of Service: 11/05/23 Procedure(s): [facility] Comprehensive Accession Number(s): [id number] cc: Viral Lewis M.D.; Elder Cerda M.D. Patient Name: TRUDY WILDER MR#: [id number] : 1975 Exam Date: 11/05/2023 Ordering Doctor: DR ELDER CERDA M.D. RADIOLOGY REPORT PROCEDURE: [facility] COMPREHENSIVE VEIN CENTER - OFFICE VISIT INITIAL [...] Signed By: 11/05/23 1537 DD/ 1537 TD/TT: Cable Television Access Coordinator: [facility] HospitalRadiology Study observation (narrative)[facility] FAC[facility] EST COMPREHENSIVEOrdered By: Radiologist Radiology on 11-43-2757MSELPutnam County Memorial Hospital Work Phone: tbh D-DIMERon 10-23-2023 DIMER0.48NIHardin County Medical Center Comment on above:Increases in D-Dimer concentration observed with thromboembolic events [...] or anticoagulant therapy, stress, and generalized hospitalization. CLINISYNCPutnam County Memorial HospitalALL CBC WITH AUTO DIFFon 36-89-7817LXWKMLQWQ ABSOLUTE AUTO0.1NOMS HealthcareBasophils/100 WBC (Bld)0.7 %0.2 - 2.0 %[facility] Eosinophils/100 WBC (Bld)5.5 %0.9 - 7.0 %[facility] HospitalErythrocyte distribution width (RBC) [Ratio]13.2 %11.0 - 15.0 %[facility] HospitalHematocrit (Bld) [Volume fraction]40.8 %36.0 - 48.0 %[facility] HospitalHemoglobin (Bld) [Mass/Vol]13.4 g/dL 12.0 - 16.0 g/dLPutnam County Memorial HospitalIMMATURE GRANULOCYTES ABS AUTO0.04HighNOSaint Joseph Hospital of KirkwoodImmature granulocytes/100 WBC (Bld)0.4 %0.0 - 0.5 %[facility] Interpretation and review of laboratory resultsAbnormalPutnam County Memorial Hospital LYMPHOCYTES ABSOLUTE AUTO2.7NOSaint Joseph Hospital of KirkwoodLymphocytes/100 WBC (Bld)28.5 %20.5 - 60.0 %[facility] HospitalH (RBC) [Entitic mass]29.6 pg26.7 - 34.0 pgRipley County Memorial HospitalHC (RBC) [Mass/Vol]32.8 g/dL29.9 - 35.2 g/dLPutnam County Memorial HospitalMCV (RBC) [Entitic vol]90.1 fL81.0 - 99.0 fLPutnam County Memorial HospitalMONOCYTES ABSOLUTE AUTO0.6NOMS HealthcareMonocytes/100 WBC (Bld)6.0 %1.7 - 12.0 %[facility] HospitalNEUTROPHILS ABSOLUTE AUTO5.6NOMS HealthcareNeutrophils/100 WBC (Bld)58.9 %43.0 - 75.0 %[facility] HospitalPlatelet mean volume (Bld) [Entitic vol]10.3 fL9.5 - 13.5 fLNOMS [facility] Medical CenterTBH EO #0.5NOMS [facility] CenterTB [id number] [facility] RBC4.53NOMS [facility] WBC9.5NOMS [facility] Medical CenterCLINISYNCNOMS HealthcareLIPASEon 11-05-2022 Lipase [Catalytic activity/Vol]97.0 U/BIubili08.0-393.0The [facility] Comment on above:Performed By: #### CMP, LIPA #### [facility] [address] [address] [address] Ann Arredondo 14(COMP METB)on 02-63-3465Sijbdhr [Mass/Vol]3.7 g/dLNormal 3.4-5.0The [facility] HospitalComment on above:Performed By: #### CMP, LIPA #### [facility] [address] [place] [address] Dr. Ann WatsonAlbumin/Globulin [Mass ratio]1.2 {ratio}NormalThe [facility] HospitalComment on above:Performed By: #### CMP, LIPA #### [facility] [address] [address] [address] Ann Benton [Catalytic activity/Vol]87 U/OWnnzds68-687Ukr [facility] HospitalComment on above:Performed By: #### CMP, LIPA #### [facility] [address] [place] [address] Dr. Ann Urbina [Catalytic activity/Vol]14 U/PXyetex15-35Dou [facility] HospitalComment on above:Performed By: #### CMP, LIPA #### [facility] [address] [place] [address] Dr. Ann Lew gap [Moles/Vol]7.6 mmol/LNormalThe [facility] HospitalComment on above:Performed By: #### CMP, LIPA #### [facility] [address] [place] [address] Dr. Ann Urias [Catalytic activity/Vol]12 U/LCritically mkw58-73Ccs [facility] HospitalComment on above:Performed By: #### CMP, LIPA #### [facility] [address] [place] [address] Dr. Ann WatsonBilirubin [Mass/Vol]0.5 mg/dLNormal0.2-1.0The [facility] Comment on above:Performed By: #### CMP, LIPA #### [facility] [address] [place] [address] Dr. Ann WatsonCalcium [Mass/Vol]9.0 mg/dLNormal8.5-10.1The [facility] Comment on above:Performed By: #### CMP, LIPA #### [facility] [address] [place] [address] Dr. Ann WatsonChloride [Moles/Vol]107 mmol/JMzoymm85-252Rry [facility] Comment on above:Performed By: #### CMP, LIPA #### [facility] [address] [address] [address] Ann WatsonCO2 [Moles/Vol]27.6 mmol/TEtewqn04.0-32.0The [facility] Comment on above:Performed By: #### CMP, LIPA #### [facility] [address] [address] [address] Ann WatsonCreatinine [Mass/Vol]0.59 mg/dLNormal0.55-1.02The [facility] HospitalComment on above:Performed By: #### CMP, LIPA #### [facility] [address] [address] [address] Ann EcheverriaGFR-AF HAITIAN>60Normal>=60The [facility] HospitalComment on above:Performed By: #### CMP, LIPA #### [facility] [address] [place] [address] Dr. Ann EcheverriaGFR-NON AF HAITIAN>60Normal>=60The [facility] HospitalComment on above:Performed By: #### CMP, LIPA #### [facility] [address] [address] [address] Ann WatsonGlobulin (S) [Mass/Vol]3.2 g/dLNormalThe [facility] HospitalComment on above:Performed By: #### CMP, LIPA #### [facility] [address] [address] [address] Ann WatsonGlucose [Mass/Vol]89 mg/tBTjhwvs85-103Ofv [facility] Comment on above:Performed By: #### CMP, LIPA #### [facility] [address] [address] [address] Ann WatsonPotassium [Moles/Vol]4.2 mmol/LNormal3.5-5.1The [facility] Comment on above:Performed By: #### CMP, LIPA #### [facility] [address] [address] [address] Ann WatsonProtein [Mass/Vol]6.9 g/dLNormal6.4-8.2The [facility] Comment on above:Performed By: #### CMP, LIPA #### [facility] [address] [place] [address] Dr. Ann Mccarthydium [Moles/Vol]138 mmol/RYwhnfl507-108Wpo [facility] Comment on above:Performed By: #### CMP, LIPA #### [facility] [address] [place] [address] Dr. Ann WatsonUrea nitrogen [Mass/Vol]14.0 mg/dLNormal7.0-18.0The [facility] HospitalComment on above:Performed By: #### CMP, LIPA #### [facility] [address] [place] [address] Dr. Ann WatsonUrea nitrogen/Creatinine [Mass ratio]23.7 mg/mgNormalThe [facility] HospitalComment on above:Performed By: #### CMP, LIPA #### [facility] [address] [place] [address] Dr. Ann Woodward AUTO DIFFon 30-10-8048PCJW #0.0 103/ulNormal0.0-0.1The [facility] HospitalComment on above:Performed By: #### CBC #### [facility] [address] [place] [address] Dr. Ann WatsonBasophils/100 WBC (Bld)0.5 %Normal0.2-2.0[facility] Comment on above:Performed By: #### CBC #### [facility] [address] [place] [address] Dr. Ann Sinclair #0.4 103/ulNormal0.0-0.7The [facility] HospitalComment on above: Performed By: #### CBC #### [facility] [address] [place] [address] Dr. Ann Echeverriaosinophils/100 WBC (Bld)7.4 %Critically high0.9-7.0The [facility] HospitalComment on above:Performed By: #### CBC #### [facility] [address] [place] [address] Dr. Ann Echeverriarythrocyte distribution width (RBC) [Ratio]12.4 %Crwzcp97.0-15.0 The [facility] HospitalComment on above:Performed By: #### CBC #### [facility] [address] [place] [address] Dr. Ann WatsonHematocrit (Bld) [Volume fraction]46.5 %Tazjmv09.0-48.0The [facility] HospitalComment on above:Performed By: #### CBC #### [facility] [address] [place] [address] Dr. Ann WatsonHemoglobin (Bld) [Mass/Vol]14.4 g/jVSrjaxx12.0-16.0The [facility] HospitalComment on above:Performed By: #### CBC #### [facility] [address] [place] [address] Dr. Ann Martinez #0.02 10e3/ulNormal0.00-0.03The [facility] HospitalComment on above:Performed By: #### CBC #### [facility] [address] [place] [address] Dr. Ann Martinez %0.4 %Normal0.0-0.5The [facility] HospitalCommclaren [place] on above: Performed By: #### CBC #### [facility] [address] [place] [address] Dr. Ann Elizabeth #2.3 103/ulNormal1.2-3.8The [facility] HospitalComment on above:Performed By: #### CBC #### [facility] [address] [place] [address] Dr. Ann Mcduffiehocytes/100 WBC (Bld)42.0 %Kcjzaq07.5-60.0The [facility] HospitalComment on above:Performed By: #### CBC #### [facility] [address] [place] [address] Dr. Ann PalmerUAL DIFF REQNONormalThe [facility] HospitalComment on above: Performed By: #### CBC #### [facility] [address] [place] [address] Dr. Ann Pereira (RBC) [Entitic mass]30.0 czOrjlkh70.7-34.0The [facility] HospitalComment on above:Performed By: #### CBC #### [facility] [address] [place] [address] Dr. Ann Pereira (RBC) [Mass/Vol]31.0 g/pJEbblkb48.9-35.2The [facility] HospitalComment on above:Performed By: #### CBC #### [facility] [address] [place] [address] Dr. Ann Pereira (RBC) [Entitic vol]96.9 gQNwuxqp50.0-99.0The [facility] HospitalComment on above:Performed By: #### CBC #### [facility] [address] [place] [address] Dr. Ann Adler #0.3 103/ulNormal0.3-0.8The [facility] HospitalComment on above:Performed By: #### CBC #### [facility] [address] [place] [address] Dr. Ann Lopezocytes/100 WBC (Bld)5.8 %Normal1.7-12.0The [facility] Comment on above:Performed By: #### CBC #### [facility] [address] [place] [address] Dr. Ann Dorsey #2.4 103/ulNormal1.4-6.5The [facility] HospitalComment on above:Performed By: #### CBC #### [facility] [address] [place] [address] Dr. Ann Dotyutrophils/100 WBC (Bld)43.9 %Radzde16.0-75.0The [facility] HospitalComment on above:Performed By: #### CBC #### [facility] [address] [place] [address] DrSaira Galarza mean volume (Bld) [Entitic vol]10.9 fLNormal9.5-13.5The [facility] HospitalComment on above:Performed By: #### CBC #### [facility] [address] [place] [address] Dr. Ann WatsonPLT267 103/imRvrcus634-585Xva [facility] HospitalCommclaren [facility] [place] on above: Performed By: #### CBC #### [facility] [address] [place] [address] Dr. Ann WatsonRBC4.80 106/ulNormal4.20-5.40The [facility] HospitalCommclaren [place] on above:Performed By: #### CBC #### [facility] [address] [place] [address] Dr. Ann WatsonWBC5.5 103/ulNormal4.0-11.0The [facility] HospitalComment on above: Performed By: #### CBC #### [facility] [address] [place] [address] Dr. Ann Sánchez T3on 24-65-4107KWAP T32.38 pg/mlLNormal2.18-3.98The [facility] on above:Performed By: #### FT3, TSH, LIPID, BMP #### [facility] [address] [place] [address] Dr. Ann Sánchez T4on 06-50-1898Jgxm T4 [Mass/Vol]0.84 ng/dLNormal0.76-1.46 The [facility] on above:Performed By: #### FT4 #### [facility] [address] [place] [address] Dr. Ann WatsonGLYCOHEMOGLOBIN A1Con 42-68-8626QIL RECOMMENDATIONSEE BELOWNormal [facility] on above:Result Comment: ADA RECOMMENDED LIMIT 4.0 - 6.0 ADA THERAPEUTIC TARGET < 7.0 ACTION SUGGESTED > 7.0Performed By: #### A1C #### [facility] [address] [place] [address] Dr. Ann WatsonGlucose [Mass/Vol]91 mg/dLNormalThe Keith HospitalComment on above:Performed By: #### A1C #### [facility] [address] [address] [address] Ann WatsonHbA1c (Bld) [Mass fraction]4.8 %Normal4.5-6.2Luther[facility] HospitalComment on above:Performed By: #### A1C #### [facility] [address] [place] [address] Dr. Ann WardID PROFILEon 12-27-9164XGEO-HDL RATIO NORMSEE [facility]-Titus Medical CenterComment on above:Result Comment: 3.3 - 4.4 LOW RISK 4.4 - 7.1 AVERAGE RISK 7.1 - 11.0 MODERATE RISK >11.0 HIGH RISKPerformed By: #### FT3, TSH, LIPID, BMP #### [facility] [address] [place] [address] Dr. Ann Guajardoesterol [Mass/Vol]169 mg/dLNormal<=200The [facility] Comment on above:Performed By: #### FT3, TSH, LIPID, BMP #### [facility] [address] [address] [address] Ann Guajardoesterol in HDL [Mass/Vol]52 mg/gDPpmrga50-80Kyk [facility] HospitalCommclaren [facility] [place] on above:Performed By: #### FT3, TSH, LIPID, BMP #### [facility] [address] [place] [address] Dr. Ann Guajardoesterol in LDL [Mass/Vol]99.4 mg/dLMercy Health Perrysburg HospitalComment on above:Performed By: #### FT3, TSH, LIPID, BMP #### [facility] [address] [place] [address] Dr. Ann Carreno.total/Cholesterol in HDL [Mass ratio]3.3 {ratio} NormalLutheran HospitalComment on above:Performed By: #### FT3, TSH, LIPID, BMP #### [facility] [address] [place] [address] Dr. Ann Hope NORMAL> or = 60 mg/dl - LOW CARDIOVASCULAR RISK <40 mg/dl - HIGH CARDIOVASCULAR RISKMercy Health Perrysburg HospitalComment on above:Performed By: #### FT3, TSH, LIPID, BMP #### [facility] [address] [place] [address] Dr. Ann Cummings CALC NORMALSEE BELOWMercy Health Perrysburg HospitalComment on above:Result Comment: <100 mg/dl OPTIMAL 100 - 129 mg/dl NEAR OR ABOVE OPTIMAL 130 - 159 mg/dl BORDERLINE HIGH 160 - 189 mg/dl HIGH >190 mg/dl VERY HIGH Performed By: #### FT3, TSH, LIPID, BMP #### [facility] [address] [address] [address] Ann WatsonTriglyceride [Mass/Vol]88 mg/dLNormal<=150[facility] Comment on above:Performed By: #### FT3, TSH, LIPID, BMP #### [facility] [address] [place] [address] Dr. Ann Lawson CALC17.6 mg/dLNoMary Rutan HospitalComment on above: Performed By: #### FT3, TSH, LIPID, BMP #### [facility] [address] [place] [address] Dr. Ann WatsonPROF CHEM 8 (BAS METB)on 00-47-9115Pvnjp gap [Moles/Vol]11.5 mmol/LNormalLutheran HospitalComment on above:Performed By: #### FT3, TSH, LIPID, BMP #### [facility] [address] [place] [address] Dr. Ann WatsonCalcium [Mass/Vol]8.7 mg/dLNormal8.5-10.1[facility] Comment on above:Performed By: #### FT3, TSH, LIPID, BMP #### [facility] [address] [place] [address] Dr. Ann WatsonChloride [Moles/Vol]106 mmol/GNvfvyi11-231HguLutheran Hospital Comment on above:Performed By: #### FT3, TSH, LIPID, BMP #### [facility] [address] [address] [address] Ann WatsonCO2 [Moles/Vol]27.3 mmol/XSpsryu34.0-32.0The [facility] Comment on above:Performed By: #### FT3, TSH, LIPID, BMP #### [facility] [address] [address] [address] Ann Braunatinine [Mass/Vol]0.57 mg/dLNormal0.55-1.02[facility] HospitalComment on above:Performed By: #### FT3, TSH, LIPID, BMP #### [facility] [address] [address] [address] Ann EcheverriaGFR-AF HAITIAN>60Normal>=60The [facility] HospitalComment on above:Performed By: #### FT3, TSH, LIPID, BMP #### [facility] [address] [address] [address] Ann EcheverriaGFR-NON AF HAITIAN>60Normal>=60The [facility] HospitalComment on above:Performed By: #### FT3, TSH, LIPID, BMP #### [facility] [address] [address] [address] Ann WatsonGlucose [Mass/Vol]85 mg/uPGxgagb97-868PbxLutheran Hospital Comment on above:Performed By: #### FT3, TSH, LIPID, BMP #### [facility] [address] [address] [address] Ann WatsonPotassium [Moles/Vol]3.8 mmol/LNormal3.5-5.1[facility] Comment on above:Performed By: #### FT3, TSH, LIPID, BMP #### [facility] [address] [address] [address] Ann WatsonSodium [Moles/Vol]141 mmol/WOdjiyl391-001HmdLutheran Hospital Comment on above:Performed By: #### FT3, TSH, LIPID, BMP #### [facility] [address] [address] [address] Ann WatsonUrea nitrogen [Mass/Vol]12.0 mg/dLNormal7.0-18.0The [facility] HospitalComment on above:Performed By: #### FT3, TSH, LIPID, BMP #### [facility] [address] [address] [address] Ann WatsonUrea nitrogen/Creatinine [Mass ratio]21.1 mg/mgNormalThe [facility] HospitalComment on above:Performed By: #### FT3, TSH, LIPID, BMP #### [facility] [address] [address] [address] Ann Salinas 21-90-1535ZGO1.064 uIU/mLNormal0.358-3.740The [facility] HospitalComment on above:Performed By: #### FT3, TSH, LIPID, BMP #### [facility] [address] [address] [address] Ann WatsonBasophils Auto (Bld) [#/Vol]Ordered By: Nir Cotto on 21-87-3990Llmouwynn (Bld) [#/Vol]0.1 10*3/uL0.0-0.2FSelect Medical Specialty Hospital - CantonBasophils/100 WBC Auto (Bld)Ordered By: Nir Cotto on 09-01-2022 Basophils/100 WBC (Bld)0.7 %.[facility] HospitalBody fluid albumin measurement (mass/volume)Ordered By: Nir Cotto on 70-24-1953Lycecue (Body fld) [Mass/Vol]3.7 g/dL3.2-5.5FSelect Medical Specialty Hospital - CantonComplete Blood Count Auto Diffon 72-50-7835Budivftze (Bld) [#/Vol]0.564063194 10*3/uL Normal0.0-0.2 10*3/uLYabbedoo Other basophils/100 WBC (Bld)0.700 %. %[place] [employer] Other Eosinophils (Bld) [#/Vol]0.067473877 10*3/uLHigh0.0- 0.45 10*3/uLNoConcurix Corporation Other Eosinophils/100 WBC (Bld)7.200 %. %[employer] Other Erythrocyte distribution width (RBC) [Ratio]13.700 % Vpznwc71.9-15.3 %[employer] Other Hematocrit (Bld) [Volume fraction]40.300 %Jyaxeq36.0- 46.4 %[employer] Other Hemoglobin (Bld) [Mass/Vol]13.905151 g/tOWxbfej22.8- 15.4 g/dLConcurix Corporation Other Lymphocytes (Bld) [#/Vol]2.934222863 10*3/uLNormal 1.00-4.8 10*3/[employer] Other Lymphocytes/100 WBC (Bld)33.300 %. %[employer] Other MCH (RBC) [Entitic mass]30.2000 kfPxixvj56.7-34.3 pg [employer] Other MCV (RBC) [Entitic vol]90.6000 wOEpbqin40-963 fLYabbedoo Other Monocytes (Bld) [#/Vol]0.943997142 10*3/uLNormal0.0- 0.8 10*3/[employer] Other Monocytes/100 WBC (Bld)6.500 %. %[employer] Other Neutrophils (Bld) [#/Vol]3.367248009 10*3/uLNormal1.8- 7.7 10*3/[employer] Other Neutrophils/100 WBC (Bld)52.300 %. %[employer] Other Platelet mean volume (Bld) [Entitic vol]8.5000 fL Normal6.3-10.7 fLCherryville W[employer] Other WBC (Bld) [#/Vol]7.549388259 10*3/uLNormal3.8-11.6 10*3/[employer] Other Complete Blood Count Auto Diff7.3 10*3/uLNormal3.8- 11.6 10*3/uLYabbedoo Other Complete Blood Count Auto Diff33.4 g/rXLvqjgw46.0-35.0 g/dLBaxano Surgical [employer] Other Complete Blood Count Auto Diff0.1 /100{WBC}Normal0-0.5 /100{WBC}[employer] Other Comprehensive Metabolic Panelon 49-95-2572Vzpouxi [Mass/Vol]3.512452 g/dLNormal3.2-5.5 g/dLCherryville [employer] Other aLT [Catalytic activity/Vol]14 U/UFqkmzb80-92 U/LNCrowd Fusion Other bilirubin [Mass/Vol]0.5433039 mg/dLNormal0.3-1.2 mg/dL [employer] Other Calcium [Mass/Vol]9.6814738 mg/dLNormal8.2-10.2 mg/dL [employer] Other CO2 [Moles/Vol]24.52926341 mmol/PJdhrqm05.0-30.0 mmol/LNCrowd Fusion Other Creatinine [Mass/Vol]0.49587010 mg/dLNormal0.44-1.03 mg/dLConcurix Corporation Other Potassium [Moles/Vol]4.61831411 mmol/LNormal3.5-5.1 mmol/LNorth [employer] Other Protein [Mass/Vol]5.034762 g/dLLow6.1-7.9 g/dLNotenet [address]. [place] [employer] Other Comprehensive Metabolic Panel> 60[place]ort [employer] Other Comprehensive Metabolic Panel2.2 g/dLNotenet [address]. [place] [employer] Other Creatinine and Glomerular filtration rate.predicted panel (S/P/Bld)Ordered By: Nir Cotto on 10-46-5577Jvbwhtcyfk [Mass/Vol] 0.64 mg/dL0.44-1.03[facility] HospitalEosinophils Auto (Bld) [#/Vol]Ordered By: Nir Cotto on 30-66-9715Vqlinmyipaj (Bld) [#/Vol]0.5 10*3/uL0.0-0.45[facility] HospitalEosinophils/100 WBC Auto (Bld) Ordered By: Nir Cotto on 67-09-8204Tjjionogpqj/100 WBC (Bld)7.2 %. [facility] HospitalErythrocyte distribution width Auto (RBC) [Ratio]Ordered By: Nir Cotto on 46-73-2649Pkkwmourfsv distribution width (RBC) [Ratio]13.7 %11.9-15.3FSelect Medical Specialty Hospital - CantonErythrocytes [#/volume] in Blood by Automated countOrdered By: Nir Cotto on 36-60-3074OMF (Bld) [#/Vol]4.45 10*6/uLNormal3.60-5.00[facility] HospitalEstimated glomerular filtration rate (GFR) non- AmericanOrdered By: Nir Cotto on 51-20-3662GKX/1.73 sq M.predicted among non-blacks MDRD (S/P/Bld) [Vol rate/Area]> 60 mL/MinParma Community General Hospital Globulin Calc (S) [Mass/Vol]Ordered By: Nir Cotto on 58-69-5371Mzgohump (S) [Mass/Vol]2.2 g/dLParma Community General HospitalHematocrit Auto (Bld) [Volume fraction]Ordered By: Nir Cotto on 87-51-6572Tbpxcpuudg (Bld) [Volume fraction]40.3 %34.0-46.4FSelect Medical Specialty Hospital - CantonHemoglobin [Mass/volume] in BloodOrdered By: Nir Cotto on 85-14-2808Icezxtaaod (Bld) [Mass/Vol]13.5 g/dL11.8-15.4FSelect Medical Specialty Hospital - CantonLeukocytes [#/volume] corrected for nucleated erythrocytes in Blood by Automated coun Ordered By: Nir Cotto on 90-07-0025RWE corrected for nucl RBC Auto (Bld) [#/Vol]7.3 10*3/uL3.8-11.6FSelect Medical Specialty Hospital - CantonLymphocytes Auto (Bld) [#/Vol]Ordered By: Nir Cotto on 96-96-3922Oinotxgkamo (Bld) [#/Vol]2.4 10*3/uL1.00-4.8[facility] HospitalLymphocytes/100 WBC Auto (Bld)Ordered By: Nir Cotto on 19-64-7415Govwjtzpnsw/100 WBC (Bld) 33.3 %.[facility] Auto (RBC) [Entitic mass]Ordered By: Nir Cotto on 69-25-8681IAF (RBC) [Entitic mass]30.2 pg24.7-34.3 [facility] HospitalHC Auto (RBC) [Mass/Vol]Ordered By: Nir Cotto on 59-59-4012OJNU (RBC) [Mass/Vol]33.4 g/dL32.0-35.0[facility] HospitalMCV Auto (RBC) [Entitic vol]Ordered By: Nir Cotto on 28-67-7237QNS (RBC) [Entitic vol]90.6 eM20-942MseqjbxctParma Community General Hospital Monocytes Auto (Bld) [#/Vol]Ordered By: Nir Cotto on 09-01-2022 Monocytes (Bld) [#/Vol]0.5 10*3/uL0.0-0.8[facility] Monocytes/100 WBC Auto (Bld)Ordered By: Nri Cotto on 09-01-2022 Monocytes/100 WBC (Bld)6.5 %.[facility] HospitalNeutrophils Auto (Bld) [#/Vol]Ordered By: Nir Cotto on 52-69-6300Dddippwfjsb (Bld) [#/Vol]3.8 10*3/uL1.8-7.7FSelect Medical Specialty Hospital - CantonNeutrophils/100 WBC Auto (Bld)Ordered By: Nir Cotto on 19-38-9018Ccfqbusdzva/100 WBC (Bld) 52.3 %.[facility] HospitalNo Panel InformationOrdered By: Nir Cotto on 29-92-0006Fbcwhvhje GFR ()> 60 mL/MinParma Community General HospitalComment on above:GFR estimated reference range: According to KDOQI guidelines, <60 ml/min/1.73m2 is sufficient todiagnose a patient with chronic kidney disease.Pharmacy Creatinine Clearance (ChemN/AFSelect Medical Specialty Hospital - CantonNucleated erythrocytes [Presence] in Blood by Automated count Ordered By: Nir Cotto on 52-02-2452Bjxgcmajv RBC Auto Ql (Bld)0.1 /100{WBC}0-0.5FSelect Medical Specialty Hospital - CantonPlatelet mean volume Auto (Bld) [Entitic vol]Ordered By: Nir Cotto on 70-52-0657Kszqyqus mean volume (Bld) [Entitic vol]8.5 fL6.3-10.7FSelect Medical Specialty Hospital - CantonPlatelets [#/volume] in Blood by Automated countOrdered By: Nir Cotto on 78-08-3492Xitjqbdrz (Bld) [#/Vol]270 10*3/rFYjxtzj139-442 10*3/uLParma Community General HospitalProtein [Mass/volume] in Serum or PlasmaOrdered By: Nir Cotto on 86-83-7092Krvpehh [Mass/Vol]5.9 g/dL6.1-7.9[facility] Centererum or plasma alanine aminotransferase measurement without P-5'-P (enzymatic activiOrdered By: Nir Cotto on 09-76-0802BVM No additional P-5'-P [Catalytic activity/Vol]14 U/W71-44HetqersmmSouthern Ohio Medical Centererum or plasma albumin/globulin mass ratioOrdered By: Nir Cotto on 03-32-0517Ixdlaef/Globulin [Mass ratio]1.7 {ratio}[facility] Centererum or plasma alkaline phosphatase measurement (enzymatic activity/volume)Ordered By: Nir Cotto on 55-71-0987YBB [Catalytic activity/Vol]64 U/ZRfbvpi24-21 U/[facility] Serum or plasma anion gap determinationOrdered By: Nir Cotto on 57-32-5269Pjhew gap [Moles/Vol]8.5 mmol/L6.0-15.0[facility] Centererum or plasma aspartate aminotransferase measurement (enzymatic activity/volume)Ordered By: Nir Cotto on 11-43-7827RSJ [Catalytic activity/Vol]16 U/PFpkkwg79-25 U/[facility] Southerum or plasma calcium measurement (mass/volume)Ordered By: Nir Cotto on 01-55-8382Gmvcoss [Mass/Vol]9.1 mg/dL8.2-10.2FSelect Medical Specialty Hospital - Canton Serum or plasma chloride measurement (moles/volume)Ordered By: Nir Cotto on 58-87-7288Ynmgxebe [Moles/Vol]106 mmol/ERzwbvl35-563 mmol/L [facility] Centererum or plasma glucose measurement (mass/volume)Ordered By: Nir Cotto on 48-75-9233Ljnjfas [Mass/Vol]80 mg/gZYfgfkf36-145 mg/dLParma Community General HospitalComment on above:ADA recommended reference rangeRandom Glucose Reference Range is dependent on time and content of last meal. Glucose of more than 200 mg/dL in a nonstressed, ambulatory subject supports the diagnosisof Diabetes Mellitus.Serum or plasma potassium measurement (moles/volume)Ordered By: Nir Cotto on 09-01-2022 Potassium [Moles/Vol]4.1 mmol/L3.5-5.1FThe Bellevue Hospitalerum or plasma sodium measurement (moles/volume)Ordered By: Nir Cotto on 24-26-0561Eanant [Moles/Vol]135 mmol/GSdi301-550 mmol/LFThe Bellevue Hospitalerum or plasma total bilirubin measurement (mass/volume)Ordered By: Nir Cotto on 88-51-1546Pumhujgou [Mass/Vol]0.5 mg/dL0.3-1.2 [facility] Centererum or plasma total carbon dioxide measurement (moles/volume)Ordered By: Nir Cotto on 23-42-6172ZI5 [Moles/Vol]24.6 mmol/L22.0-30.0[facility] Centererum or plasma urea nitrogen measurement (mass/volume)Ordered By: Nir Cotto on 92-15-9167Gmfb nitrogen [Mass/Vol]9 mg/dLNormal9-23 mg/dLSouthern Ohio Medical Centermooth Muscle Antibodyon 91-58-0315Imdgzi Muscle Pfvmxppy250-91 Yab[employer]oo Other WBC Auto (Bld) [#/Vol]Ordered By: Nir Cotto on 39-48-0814XHV (Bld) [#/Vol]7.3 10*3/uL3.8-11.6FSelect Medical Specialty Hospital - CantonXR CHEST 2 Von 83-38-3546OJ CHEST 2 VEXAM: XR CHEST 2 V HISTORY: Disorder of [...] Electronically authenticated by: SALOMÓN CERVANTES Date: 2022-01-20 12:59[facility] HospitalDischarge Planning Ipiy6qh 70-06-2224Fjiicnaoz Planning Note2 Discharge Planning: Anticipated Discharge Mdbl43-Vwd-2160 Assessment: Discharge Planning Assessment Gxbw64-Pki-3191 Stated Reason for Admissionseizures(1) Arrived From[place] star (1) Lives Withsignificant other; adult child(kristofer)(1) Living Arrangementshouse(1) Resource/Environmental Concernsnone(1) Anticipated Transition Tounion star(1) Services Anticipated at Transitionnone(1) Nursing Checklist: Lines/Cathetersremoved/appropriate for next level of care Discharge Med Rec Reconciled with Nahun Patient has Prescriptionsno prescriptions needed DME equipment orderedN/A Transportation for Discharge Confirmedyes Follow up Reviewedyes Discharge Instructions Reviewed WithPatient and Family Member Discharge Instructions Outcomeverbalize recall/understanding County InvolvementN/A Discharge Instructions Review Completed with Patient/Family (diet, activity, pt instructions)yes Discharge Documentation: Discharge/Transfer Date/Txdd78-Uox-1268 13:32 Discharge Modeambulatory Discharged Accompanied Byfamily member Transportation Methodprivate car Valuables/Medications/Belongings Returnedyes Security Envelope ReturnedN/A Final DispositionHome Electronic Signatures: Purnima Pritchett (RN) (Signed 30-Oct-2019 13:33) Authored: Discharge Planning Note2 Last Updated: 30-Oct-2019 13:33 by Purnima Pritchett (RN) References: 1. Data Referenced From Patient Profile - Adult v2 28-Oct-2019 10:36[facility] HospitalDischarge Honefra2kt 74-45-6548Aoryrivri Profile2 Discharge Orders: Anticipated Discharge Date: Anticipated Discharge Gkrx99-Vpw-8421 Hospital Providers: Provider RoleProvider Name Amberly Hernandez [...] at 30-Oct-2019 12:16:13 Appointments: Follow-Up Appointment 01: Physician/Dept[facility]Dr[facility] Call [facility] Schedule in4 weeks Scheduled Date/Gxzt21-Alx-4597 16:30 CommentsOrder received after discharge Electronic Signatures: Virgil Xie ( (Resident)) (Signed 30-Oct-2019 12:16) Authored: Discharge Orders, Epilepsy/Seizure, Hospital Course (Home Care/Gold Form), Provider FINAL REVIEW of Orders, Appointments, Gold Form - Systems Mgr Summary Halle Nails (PT ACC REP) (Signed 31-Oct-2019 10:49) Authored: Epilepsy/Seizure, Appointments Last Updated: 31-Oct-2019 10:49 by Halle Nails (PT ACC REP)[facility] HospitalDaily Progress Note-Epilepsyon 89-02-5736Tndwz Progress Note-EpilepsyService: Epilepsy Subjective Data: 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 Overnight Events: Patient had an uneventful night. Objective Data: Objective Information: T PRBPSpO2 Value36.08589313/7898% Date/Time10/29 8: 8: 8: 8: 8:15 Range(36.1C [...] Seizure Onset Table No known seizure onsets. Signature/Cosignature/Attestation: Note Completion: I am a: Resident/Fellow Attending [...] the note. I personally evaluated the patient qp85-Pvl-5401 Electronic Signatures: Amberly Pressley) (Signed 10-Nov-2019 15:05) Authored: Signature/Cosignature/Attestation Co-Signer: Service, Subjective Data, Objective Data, Assessment and Plan, Signature/Cosignature/Attestation Liane Charles (Fellow)) (Signed 29-Oct-2019 16:37) Authored: Service, Subjective Data, Objective Data, Assessment and Plan, Signature/Cosignature/Attestation Last Updated: 10-Nov-2019 15:05 by Amberly Pressley)[facility] HospitalAdmission Risk Screen - Adulton 47-19-2021Imxekikgb Risk Screen - AdultAllergies: Allergies: Phenergan: Unknown doxycycline: Unknown sulfa drugs: Unknown contrast (specific type unknown): Unknown Patient Verification: New W ID Band Applied in my Departmentno Type of ID Patient is WearingW wristband, but not applied here Patient Transferred from Other Facility ([facility], [facility],etc)no Patient Identity Verified Bypatient [...] risk with low risk for associated injury [place] Safety InterventionsWDL *orient to call system *instruct [...] Learning Preferencesverbal instruction Cultural Considerationsnone Developmental Considerationsnone Rastafari Considerationsnone Learning Assessment (Other Learner): Other learner [...] Spiritual Screen: Are there any cultural, spiritual, buddhist practices/values/needs that are important for us to knowno CAGE: Is this an injured patient at a Trauma Center ([facility]/[place] no Vaccinations: Vaccination - Influenza Vaccination Screen: Is it flu season (between and January 11)Yes Screening for identified contraindications to influenza vaccination patient/caregiver refusal Vaccination - Pneumonia Vaccination Screen: Patient has received a previous pneumonia vaccine:no/unknown... Immunocompetent persons with underlying chronic conditions or reside in technician terminal and repeater care facilitieschronic liver disease, including cirrhosis Persons [...] Last Updated: 28-Oct-2019 11:33 by Samara Sanchez (HUSSAIN)NormalPSE&G Children's Specialized HospitalCBC AND DIFFERENTIALon 10-28-2019% AUTOMATED IMMATURE GRAN0.4 %Normal0.0 - 0.9P[facility]&G Children's Specialized HospitalComment on above:Result Comment: Percent differential counts (%) should be interpreted in the context of the absolute cell counts (cells/L).Performed By: #### CBCDF #### [facility] [address] [place], [place] [address]Fqdwrsisr (Bld) [#/Vol]0.04 10*3/uLNormal0.00 - 0.10P[facility]&G Children's Specialized HospitalComment on above:Performed By: #### CBCDF #### [facility] [address] [place], [place] [address]Uipodaqam/100 WBC (Bld)0.5 %Normal0.0 - 2.0P[facility]&G Children's Specialized HospitalComment on above:Performed By: #### CBCDF #### [facility] [address] [place], [place] [address]Ezuljjzpewm (Bld) [#/Vol]0.46 10*3/uLNormal0.00 - 0.70P[facility] Children's Specialized HospitalComment on above:Performed By: #### CBCDF #### [facility] [address] [place], [place] [address]Bdakvvxkwsq/100 WBC (Bld)5.9 %Normal0.0 - 6.0P[facility] Children's Specialized HospitalComment on above:Performed By: #### CBCDF #### [facility] [address] [place], [place] [address]Skfniyartrz distribution width (RBC) [Ratio]13.1 %Ypqedh14.5 - 14.5P[facility] Children's Specialized HospitalComment on above:Performed By: #### CBCDF #### [facility] [address] [place], [place] [address]Kmuynuqukz (Bld) [Volume fraction]41.4 %Qmjzxr99.0 - 46.0P[facility] Specialized HospitalComment on above:Performed By: #### CBCDF #### [facility] [address] [place], [place] [address]Gbbaonuaqv (Bld) [Mass/Vol]13.9 g/wGInfhoi35.0 - 16.0P[facility] Specialized HospitalComment on above:Performed By: #### CBCDF #### [facility] [address] [place], [place] [address]Zmvizqbkxfn (Bld) [#/Vol]2.45 10*3/uLNormal1.20 - 4.80P[facility] Specialized HospitalComment on above:Performed By: #### CBCDF #### [facility] [address] [place], [place] [address]Wholkudpyea/100 WBC (Bld)31.2 %Idwihy61.0 - 44.0P[facility] Children's Specialized HospitalComment on above:Performed By: #### CBCDF #### [facility] [address] [place], [place] [address]XHDV (RBC) [Mass/Vol]33.6 g/kZRhvkbm83.0 - 36.0[facility] Specialized HospitalComment on above:Performed By: #### CBCDF #### [facility] [address] [place], [place] [address]WCM (RBC) [Entitic vol]90 lHSwdlwz14 - 100PSE&G Children's Specialized HospitalComment on above:Performed By: #### CBCDF #### [facility] [address] [place], [place] [address]Lyzsoaomn (Bld) [#/Vol]0.59 10*3/uLNormal0.10 - 1.00[facility] Specialized HospitalComment on above:Performed By: #### CBCDF #### [facility] [address] [place], [place] [address]Ljzuqcksm/100 WBC (Bld)7.5 %Normal2.0 - 10.0[facility] Specialized HospitalComment on above:Performed By: #### CBCDF #### [facility] [address] [place], [place] [address]Exfyvocelkr (Bld) [#/Vol]4.29 10*3/uLNormal1.20 - 7.70P[facility] Specialized HospitalComment on above:Performed By: #### CBCDF #### [facility] [address] [place], [place] [address]Bghumqgimeo/100 WBC (Bld)54.5 %Vkmrck80.0 - 80.0[facility] Specialized HospitalComment on above:Performed By: #### CBCDF #### [facility] [address] [place], [place] [address]Ulcgmscns RBC/100 WBC (Bld) [Ratio]0.0 /100 WBCNormal0.0-0.0 [facility] Specialized HospitalComment on above:Performed By: #### CBCDF #### [facility] [address] [place], [place] [address]Qkqabzjab (Bld) [#/Vol]254 10*3/rMXnyztl772 - 450P[facility] Specialized HospitalComment on above:Performed By: #### CBCDF #### [facility] [address] [place], [place] [address]MKR (Bld) [#/Vol]4.60 x10E12/LNormal4.00 - 5.20P[facility] Specialized HospitalComment on above:Performed By: #### CBCDF #### [facility] [address] [place], [place] [address]CJD (Bld) [#/Vol]7.9 10*3/uLNormal4.4 - 11.3P[facility] Specialized HospitalComment on above:Performed By: #### CBCDF #### [facility] [address] [place], [place] [address]XIJPEBFXNFCZG PANELon 71-83-1008Xiyhtsn [Mass/Vol]4.2 g/dL Normal3.4 - 5.0P[facility] Specialized HospitalComment on above:Performed By: #### CMP #### [facility] [address] [place], [place] [address]MRQ [Catalytic activity/Vol]73 U/RHosfzm57 - 110P[facility] Children's Specialized HospitalComment on above:Performed By: #### CMP #### [facility] [address] [place], [place] [address]YAU [Catalytic activity/Vol]8 U/LNormal7 - 45P[facility] Children's Specialized HospitalComment on above:Result Comment: Patients treated with Sulfasalazine may generate falsely decreased results for ALT.Performed By: #### CMP #### [facility] [address] [place], [place] [address]Kpjbf gap [Moles/Vol]11 mmol/ZJvymiy57 - 20P[facility] Specialized HospitalComment on above:Performed By: #### CMP #### [facility] [address] [place], [place] [address]PCE [Catalytic activity/Vol]11 U/LNormal9 - 39P[facility] Specialized HospitalComment on above:Performed By: #### CMP #### [facility] [address] [place], [place] [address]Vocfapxae [Mass/Vol]0.5 mg/dLNormal0.0 - 1.2P[facility] Specialized HospitalComment on above:Performed By: #### CMP #### [facility] [address] [place], [place] [address]Pwbjzbk [Mass/Vol]9.4 mg/dLNormal8.6 - 10.6P[facility] Specialized HospitalComment on above:Performed By: #### CMP #### [facility] [address] [place], [place] [address]Gyqdcqxl [Moles/Vol]108 mmol/LHigh98 - 107P[facility] Specialized HospitalComment on above:Performed By: #### CMP #### [facility] [address] [place], [place] [address]Bbfiapmkpy [Mass/Vol]0.55 mg/dLNormal0.50 - 1.05UH [facility] Medical CenterComment on above:Performed By: #### CMP #### [facility] [address] [place], [place] [address]HNN-ZUIHQYY AM.>60Normal>60UH [facility] Medical CenterComment on above:Result Comment: CALCULATIONS OF ESTIMATED GFR ARE PERFORMED USING THE MDRD STUDY EQUATION FOR THE IDMS-TRACEABLE CREATININE METHODS. CLIN CHEM 2007;53:766-72Performed By: #### CMP #### [facility] [address] [place], [place] [address]NXG-KID AM.>60Normal>60[facility] Comment on above:Performed By: #### CMP #### [facility] [address] [place], [place] [address]Rfnmemf [Mass/Vol]77 mg/cEOpwwbf86 - 99P[facility] Specialized HospitalComment on above:Performed By: #### CMP #### [facility] [address] [place], [place] [address]XJP5 (Bld) [Moles/Vol]27 mmol/SOktcme34 - 32P[facility] Specialized HospitalComment on above:Performed By: #### CMP #### [facility] [address] [place], [place] [address]Aavvqynhv [Moles/Vol]3.7 mmol/LNormal3.5 - 5.3P[facility]ized HospitalComment on above:Performed By: #### CMP #### [facility] [address] [place], [place] [address]Barjhyo [Mass/Vol]6.3 g/dLLow6.4 - 8.2[facility] Specialized HospitalComment on above:Performed By: #### CMP #### [facility] [address] [place], [place] [address]Kgzemd [Moles/Vol]142 mmol/MOhzvez203 - 145P[facility] Specialized HospitalComment on above:Performed By: #### CMP #### [facility] [address] [place], [place] [address]Qhjn nitrogen [Mass/Vol]8 mg/dLNormal6 - 23P[facility] Specialized HospitalComment on above:Performed By: #### CMP #### [facility] [address] [place], [place] [address]Iajiskn and Physical - Neuro-Epilepsyon 74-17-9021Ftbrsgg and Physical - Neuro-EpilepsyHistory of Present Illness: /Lactating: Are You no [...] frequently. The patient first sought treatment at [facility] ([place]), who performed an EEG and [...] Due to recurrent symptoms she presented to [facility] and had CT which she was told [...] had a routine EEG in February 2018 ([facility]), which described a normal EEG with good background, but occasionally featured sharply contoured waves though did not give location. Epilepsy risk factors - Born at term by after uneventful , with no known complications at . - Normal developmental milestones - No history of febrile convulsion or TUBE CLEANER infections. - No family history of epilepsy. - No history of major head trauma with loss of consciousness. - No history of TUBE CLEANER surgery. REVIEW OF SYSTEMS: 14 system review negative except for mentioned above. 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 Objective Information: Objective Information: T PRBPSpO2 Value36.96414154/75567% Date/Time10/28 11: 11: 11: 11: 11:00 Range(36.5C [...] light touch all 4 extremities. COORDINATION: - Qenezz-Esrr-Neblid: intact without dysmetria or overshoot in both upper extremities. - Heel to [place]: intact in both lower extremities GAIT: - [...] Regular diet DVT Enoxaparin subcutaneous Full Code Signatures/Attestation/Certification: Note Completion: I am a: Resident/Fellow Attending [...] the note. I personally evaluated the patient [id number] Attending Provider Inpatient Certification StatementI certify this patients need for inpatient care based on the above documentation including; the order to admit as inpatient, the anticipated length of stay, diagnosis, problem list and plan of care, and discharge plan. Admission Order - View OnlyCurrent Admission Order. Admit to Inpatient Adult [facility] Admitting Diagnosis, R56.9 Seizure Admitting Service, Neurology Level of Care, Telemetry EMU admission Alvaro Freeman Electronic Signatures: Amberly Pressley) (Signed 10-Nov-2019 15:01) Authored: Medications Prior to Admission, Signatures/Attestation/Certification Co-Signer: History of Present Illness, Objective, Assessment and Plan, Signatures/Attestation/Certification Alvaro Freeman (Resident)) (Signed 28-Oct-2019 13:56) Authored: History of Present Illness, Comorbidities, Allergies, Medications Prior to Admission, Objective, Assessment and Plan, Signatures/Attestation/Certification Last Updated: 10-Nov-2019 15:01 by Amberly Pressley) References: 1. Data Referenced From Patient Profile - Adult v2 28-Oct-2019 10:36[facility] HospitalPatient Profile - Adult v2on 40-53-4064Rniclgh Profile - Adult r5Plkrtjs: Initial Info: How to be Addressedjill Spoken Language PreferredEnglish Are you currently using the Personal Electronic Health Record or [place] Stated Reason for Admissionseizures Wants Family/Rep Notified of Admissionn/a; family present Notify PCPdo not notify PCP Informed of Patient Visiting Rightsyes Arrived Fromunion star Patient Belongingsremains with patient Medications Brought to Hospitalno General Health: Weight in kg86.6 kilogram(s) Weight in ehc537 pound(s) Height in feet5 feet Height in inches3 inch(es) Height in cm160 centimeter(s) BMI (kg/m2)33.828 square meter Weight Methodstated Scale Typebed Height Methodstated [facility] Based Care: How would [...] child(kristofer) Living Arrangementshouse Resource/Environmental Concernsnone Anticipated Transition Tounion star Services Anticipated at Transitionnone Significant IndicatorsComplete Information [...] Last Updated: 28-Oct-2019 11:37 by Samara Sanchez (HUSSAIN)[facility] HospitalChart Updateon 71-64-8423Hyjmj UpdateActive Problems Chronic headaches (784.0) (R51) Classic migraine with aura (346.00) (G43.109) Common migraine without aura (346.10) (G43.009) Facial numbness (782.0) (R20.0) Hemisensory deficit (781.99) (R29.818) Nonspecific paroxysmal spell (780.09) (R40.4) Sensory disturbance (782.0) (R20.9) Spell of dizziness (780.4) (R42) Chart Update Progress Note Free Text_UH: Supplemental records obtained from [facility]. Pertinent summary below: 01/18/2018 Presented to [facility] ED with numbness of the right side [...] ASA 81mg for paresthesias. 02/17/2018 Presented to [facility] ED with right-sided facial numbness and drooping, right arm and legfeeling funny, and migraines. Underwent MRI brain w/wo, MRA, and MRV, all of which were normal, with exception of inability to visualized right vertebral artery in the posterior fossa. Routine EEG revealed sharply contoured waves, raising suspicion for mechanism for seizure generation and due to being somewhat inconclusive this patient may benefit from prolonged EEG monitoring. 12/07/2018 Presented to [facility] ED with multiple vague complaints of dizziness (no vertigo), funnyfeeling on the right side of her face (worse when standing up). Reported a history of seizures but an intolerance for levetiracetam. Denied headache, neck stiffness. No other symptoms. Exam was normal. CT head was unremarkable. Advised to increase fluid increase fluids and was discharged home. 02/01/2019 Presented to [facility] ED with palpitations and arrhythmia, feeling like her heart was skipping beats. Denied any nausea, SOB, CP. No recent illness. No fevers, chills, diarrhea, abdominal pain. Would occur several times a minute initially, then became less frequent. Observed to have PVCson exam. Discharged home with Holter (unknown if had placed). 06/12/2019 Presented to [facility] ED with nausea, vomiting, and diarrhea. Reported using multiple scopolamine patches (5 patches in 6 days, Rxd for 1 patch every 3 days; reported more given getting wet while scuba-diving). Noted she felt nauseated with blurred vision, dry mouth, urinary frequency, and warm/heavy feeling in her body. No confusion, agitation, or hallucinations. [place] to be dehydrated. Given fluids and discharged. 06/14/2019 Presented to [facility] ED with severe nausea, vomiting, dizziness, lightheadedness, blurry vision, diarrhea, and headache. Had recently removed a scopolamine patch after a cruise to the [facility]. Stated also her seizures are acting up, which she relayed were focal, left-sided seizures thatcant be seen. Not on AEDs, but reported seeing a neurologist at [facility]. Exam was unremarkable, though noted to be anxious and tearful. CT head was normal. Given Flagyl 500mg PO (c/f GI illness after recent trip) and discharged home. 07/19/2019 Presented to [facility] ED with dizziness. Stated she thinks she [...] visit. Alvino Beltrán MD [facility] Pager: [phone] Signatures Electronically signed by : Didier Beltrán MD; Oct 25 2019 1:55PM EST (Author) Normal Touchworks Vital Signs Date TimeVital SignValuePerforming RwupyihqoRwrtbyjy49-42-5886 13:49-0400 Diastolic blood mm[Hg]Viral Lewis MD Work Phone: 1(841)[address]09-24-2025 13:49-0400 Heart rate95 /minViral Lewis MD Work Phone: 1(686)52443 [address]09-24-2025 13:49-0400 Respiratory rate18 /minViral Lewis MD Work Phone: 1(120)513[address]09-24-2025 13:49-0400 SaO2% (BldA) [Mass fraction]99 %Viral Lewis MD Work Phone: 1(234)83243 [address]09-24-2025 13:49-0400 Systolic blood viftpjsp47 mm[Hg]Viral Lewis MD Work Phone: 1(825)405[address]09-24-2025 11:48-0400 Body ighpqk177.02 cmViral Lewis MD Work Phone: 1(437)[address]09-24-2025 11:48-0400 Body zconch33.25 kgViral Lewis MD Work Phone: 1(587)[address]09-05-2025 10:22-0400 Diastolic blood zdcovehw64 mm[Hg]Viral Lewis MD Work Phone: 1(266)[address]09-05-2025 10:22-0400 Systolic blood wvfwtymv724 mm[Hg]Viral Lewis MD Work Phone: 1(296)727-[address] [place], [place] 8108408-01-2025 11:43-0400 Body vbtduo111 cmViral Lewis MD Work Phone: [facility] HospitalTdlwxokxzs97-55-0548 11:43-0400Body mass index (BMI) [Ratio]37.2 kg/m2Viral Lewis MD Work Phone: [facility] HospitalDsbgwjhzap57-05-7020 11:43-0400Body temperature 97.5 [degF]Viral Lewis MD Work Phone: [phone] [place], [place] [address]Usippeeulg76-59-8767 11:43-0400Body wzzaak72.25 kgViral Lewis MD Work Phone: [facility] HospitalGceilyikae67-04-8267 11:43-0400Diastolic blood moxzsppj24 mm[Hg]Viral Lewis MD Work Phone: 1(336)[address]08-01-2025 11:43-0400Heart rate52 /min Viral Lewis MD Work Phone: [facility] HospitalEhndgwvvtd04-29-2393 11:43-0400Respiratory rate22 /minViral Lewis MD Work Phone: [facility] HospitalVunqaxracf04-15-3198 11:43-7795EsV2% (BldA) [Mass fraction]92 %Viral Lewis MD Work Phone: [facility] HospitalFaiozcjokx42-25-1628 11:43-0400Systolic blood mm[Hg]Viral Lewis MD Work Phone: [facility] HospitalYslelcvkdz06-25-7339 18:03-0400Diastolic blood dgqbfqiw98 mm[Hg]Viral Lewis MD Work Phone: 1(040)133-[address] [place], [place] 8108407-04-2025 18:03-0400 Heart rate71 /minViral Lewis MD Work Phone: 1(334)[address]07-04-2025 18:03-0400 Respiratory rate20 /minViral Lewis MD Work Phone: [facility]07-04-2025 18:03-0400 SaO2% (BldA) [Mass fraction]96 %Viral Lewis MD Work Phone: [facility]07-04-2025 18:03-0400 Systolic blood mm[Hg]Viral Lewis MD Work Phone: [facility]07-04-2025 16:01-0400 Body qnxuwa462.02 cmViral Lewis MD Work Phone: [facility]07-04-2025 16:01-0400 Body hxzhgrrveew79.9 [degF]Viral Lewis MD Work Phone: [facility]07-04-2025 16:01-0400 Body cdpolt70.4 kgViral Lewis MD Work Phone: [facility]05-19-2025 10:36-0400 Body mass index (BMI) [Ratio]36.31 kg/y5EdzxywsChristin Rowe MANAGER SOCIAL WORK Work Phone: [facility] HospitalOejmuhmafy24-58-7941 10:36-0400Body temperature 98.71 [degF]Christin Rowe MANAGER SOCIAL WORK Work Phone: [facility] HospitalWfigwlasny90-76-8660 10:36-0400Body rzkbea83.99 kgChristin Rowe MANAGER SOCIAL WORK Work Phone: [phone] HospitalDcxlmpshkz96-72-6233 10:36-0400Diastolic blood vfcgiugm13 mm[Hg]Christin Rowe MANAGER SOCIAL WORK Work Phone: [phone] HospitalWzakhozors29-63-2613 10:36-0400Heart rate88 /min Christin Rowe MANAGER SOCIAL WORK Work Phone: [facility] HospitalQusuxbapbr37-35-1097 10:36-4366UpI6% (BldA) [Mass fraction]99 %Christin Rowe MANAGER SOCIAL WORK Work Phone: [facility] HospitalJfghlnfapw17-28-1026 10:36-0400Systolic blood qahoiaqx411 mm[Hg]Christin Rowe MANAGER SOCIAL WORK Work Phone: [facility] HospitalWdnyuejnws78-89-1711 16:21-0400Body mass index (BMI) [Ratio]36.31 kg/z2CiuvnffBree Benitez MANAGER SOCIAL WORK Work Phone: [facility] HospitalNztwceuocd05-94-1052 16:21-0400Body temperature 97.81 [degF]Bree Benitez MANAGER SOCIAL WORK Work Phone: [facility] HospitalUyhxqqooxw04-66-6306 16:21-0400Body mzecex85.99 kgBree Benitez MANAGER SOCIAL WORK Work Phone: [facility] HospitalRzyjbmaqul83-22-2889 16:21-0400Diastolic blood arnctxhq24 mm[Hg]Bree Benitez MANAGER SOCIAL WORK Work Phone: [facility] HospitalUombgkozxl99-79-8900 16:21-0400Heart rate87 /min Bree Benitez MANAGER SOCIAL WORK Work Phone: [facility] HospitalLwxqsfbbwl84-18-7379 16:21-0400Respiratory rate20 /minBree Benitez MANAGER SOCIAL WORK Work Phone: [facility] HospitalErzbxatana12-53-0785 16:21-2200QwJ8% (BldA) [Mass fraction]99 %Bree Benitez MANAGER SOCIAL WORK Work Phone: [facility] HospitalFaizcedhqg96-48-6941 16:21-0400Systolic blood otipbwao483 mm[Hg]Bree Benitez MANAGER SOCIAL WORK Work Phone: [facility] HospitalNbkwiitfkq41-23-7724 13:57-0500Body vsupnd049 cm Viral Lewis MD Work Phone: [facility] HospitalCzunyeoqep01-67-2815 13:57-0500Body mass index (BMI) [Ratio]36.14 kg/m2Viral Lewis MD Work Phone: [facility] HospitalUzzgkfjgsi17-01-1811 13:57-0500Body temperature 97.5 [degF]Viral Lewis MD Work Phone: [facility] HospitalWmfsmdruqs51-00-1189 13:57-0500Body afehbm86.53 kgViral Lewis MD Work Phone: 1(060)117-[address] [place], [place] [address]Lidnjupyui19-20-0646 13:57-0500Diastolic blood lqhkbkho22 mm[Hg]Viral Lewis MD Work Phone: 1(199)64[address]01-02-2025 13:57-0500Heart rate82 /min Viral Lewis MD Work Phone: 1(632)[address] [place], [place] 0503801-02-2025 13:57-0500Respiratory rate20 /minViral Lewis MD Work Phone: 1(881)[address] [place], [place] 0503801-02-2025 13:57-6798DnM7% (BldA) [Mass fraction]98 %Viral eLwis MD Work Phone: 1(758)[address]01-02-2025 13:57-0500Systolic blood xuwsecdr466 mm[Hg]Viral Lewis MD Work Phone: 1(815)[address] [place], [place] 0503811-18-2024 15:16-0500Diastolic blood arxuhvpl13 mm[Hg]Viral Lewis MD Work Phone: 1(377)[address]11-18-2024 15:16-0500 Heart rate70 /minViral Lewis MD Work Phone: 1(270)[address] [place], [place] 9957111-18-2024 15:16-0500 Respiratory rate16 /minViral Lewis MD Work Phone: 1(549)[address]11-18-2024 15:16-0500 SaO2% (BldA) [Mass fraction]96 %Viral Lewis MD Work Phone: 1(400)[address]11-18-2024 15:16-0500 Systolic blood vxyxegva142 mm[Hg]Viral Lewis MD Work Phone: 1(883)[address] [place], [place] 9957111-18-2024 11:18-0500 Body rceuarxrlkw95.8 [degF]Viral Lewis MD Work Phone: 1(115)[address] [place], [place] 9957111-18-2024 06:21-0500 Body einwon15.6 kgViral Lewis MD Work Phone: 1(969)[address]11-17-2024 15:07-0500 Body tdkdyj750.02 cmViral Lewis MD Work Phone: 1(687)[address]11-17-2024 13:10-0500 Diastolic blood kbgarfrf20 mm[Hg]Viral Lewis MD Work Phone: 1(020)[address] [place], [place] 9957111-17-2024 13:10-0500 Systolic blood mihxumck665 mm[Hg]Viral Lewis MD Work Phone: 1(468)[address] [place], [place] 9957111-17-2024 12:41-0500 Body docdfqsntgd62.8 [degF]Viral Lewis MD Work Phone: 1(870)[address] [place], [place] 9957111-17-2024 12:41-0500 Heart rate80 /minViral Lewis MD Work Phone: 1(486)[address] [place], [place] 9957111-17-2024 12:41-0500 Respiratory rate20 /minViral Lewis MD Work Phone: 1(222)[address] [place], [place] 9957111-17-2024 12:41-0500 SaO2% (BldA) [Mass fraction]97 %Viral Lewis MD Work Phone: 1(611)[address]11-17-2024 08:02-0500 Body .29 cmViral Lewis MD Work Phone: 1(402)[address]11-17-2024 08:02-0500 Body ufpvdl58 kgViral Lewis MD Work Phone: 1(902)[address] [place], [place] 3064310-21-2024 14:50-0400 Body jnatibrmibv01.5 [degF]Dallin Martinez MANAGER SOCIAL WORK Work Phone: [facility] HospitalMmnferkmzu05-02-0607 14:50-0400Heart rate86 /min Dallin Martinez MANAGER SOCIAL WORK Work Phone: [facility] HospitalAthogdunnz56-67-5437 14:50-7170QhF7% (BldA) [Mass fraction]99 %Dallin Martinez MANAGER SOCIAL WORK Work Phone: [facility] HospitalDisgfneaxq14-25-8723 14:41-0400Body pnydkf055.12 cm[facility]04-30-2024 14:41-0400Body mass index (BMI) [Ratio]37 kg/h0ZzheraaekParma Community General Hospital04-30-2024 14:41-0400Body weight 92.78 kgPar[facility] Hospital04-30-2024 14:41-0400Diastolic blood jhhahfda04 mm[Hg][facility]04-30-2024 14:41-0400Heart rate69 /[facility]04-30-2024 14:41-0400Respiratory rate18 /[facility]04-30-2024 14:41-6482DbP9% (BldA) [Mass fraction]98 %[facility]04-30-2024 14:41-0400 Systolic blood uivqbksr525 mm[Hg][facility]02-01-2024 14:51-0500Body ipflde246 cmSmarimar Garcia MD Work Phone: [facility] HospitalUvmnpilvfd12-25-8997 14:51-0500Body mass index (BMI) [Ratio]38.09 kg/g8FanokzShaikh Jose ADAM Work Phone: [facility] HospitalYxleijvvdg87-50-2451 14:51-0500Body temperature 96.91 [degF]Shaikh Jose ADAM Work Phone: [facility] HospitalScphigmrrs89-80-4593 14:51-0500Body kqxriv78.52 kgShaikh Jose ADAM Work Phone: [facility] HospitalWrapsxbuyj26-33-5474 14:51-0500Diastolic blood okmkvcqy02 mm[Hg]Shaikh Jose ADAM Work Phone: [facility] HospitalKhrbmsksco68-30-2183 14:51-0500Heart rate79 /min Shaikh Jose ADAM Work Phone: 1(419)547-[address] [place], [place] [address]Vkhuxaizgv13-19-1175 14:51-3224QtW2% (BldA) [Mass fraction]96 %Shaikh Jose ADAM Work Phone: noSaint [facility] KirkwoodJouetlsgdp99-27-5192 14:51-0500Systolic blood rmujdusl105 mm[Hg]Shaikh Jose ADAM Work Phone: noSaint [facility] of KirkwoodOconawzvca24-85-1443 15:00-0400Body exzzvo151.02 cmAmbalexandria Miller Other [employer] Other 08-17-2023 15:00-0400Body mass index (BMI) [Ratio]36.1 kg/c1OfeipFaina Miller Other [employer] Other 08-17-2023 15:00-0400Body twtaeiuxxfz59 [degF]Faina Miller Other [employer] Other 785633-35-1423 15:00-0400Body eqseim07.44 kgFaina Miller Other [employer] Other 079324-68-7937 15:00-0400Diastolic blood csgjaist47 mm[Hg] Faina Miller Other [employer] Other 08-17-2023 15:00-0400Respiratory rate18 /minFaina Miller Other [employer] Other 08-17-2023 15:00-5113KnD8% (BldA) [Mass fraction]99 % Faina Miller Other [employer] Other 08-17-2023 15:00-0400Systolic blood ogeybthv520 mm[Hg] Faina Miller Other [employer] Other 04-04-2022 16:30-0400Body .02 Derrick Cotto Other [employer] Other 04-04-2022 16:30-0400Body mass index (BMI) [Ratio] 31.35 kg/u6Dabpvsrmbashir Cotto Other [employer] Other 04-04-2022 16:30-0400Body tzwoqg11.29 kgLabashir Cotto Other [employer] Other 02-09-2022 15:55-0500Body wzavcg064.02 cmPamelemily Viridiana Other [employer] Other 02-09-2022 15:55-0500Body mass index (BMI) [Ratio] 31.35 kg/z6Crnuyo Viridiana Other [employer] Other 02-09-2022 15:55-0500Body ysnfiwplldk01.9 [degF]Ellie Viridiana Other [employer] Other 02-09-2022 15:55-0500Body erhhsx99.29 kgPamela Viridiana Other [employer] Other 02-09-2022 15:55-0500Diastolic blood alhgredc27 mm[Hg] Ellie Viridiana Other [employer] Other 02-09-2022 15:55-0500Respiratory rate18 /minPamela Viridiana Other [employer] Other 02-09-2022 15:55-0382OxR6% (BldA) [Mass fraction]99 % Ellie Kemp Other [employer] Other 02-09-2022 15:55-0500Systolic blood vvxwyruk883 mm[Hg] Ellie Kemp Other [employer] Other 01-11-2022 15:00-0500Body afwpsv864.02 Derrick Cotto Other [email or web address] Other 01-11-2022 15:00-0500Body mass index (BMI) [Ratio] 29.23 kg/h3NthmmiljNir Cotto Other [employer] Other 01-11-2022 15:00-0500Body ajzygl69.84 kgLabashir Cotto Other [employer] Other Encounters Encounter DateEncounter TypeCare ProviderFacilityStart: 06-07-2025 End: 04-14-1785yaceozzntwNnkuvphrc L LyFacility:[facility]ertart: 98-81-7579Fqu-patient / Non-visitCatherine L Ly DO-[facility] Work Phone: Start: 05-19-2025 End: 07-04-0280bxfrzuoscaOnte Naderer MD Work Phone: [facility] Work Phone: Start: 05-19-2025 End: 21-22-7847Intsitr encounter procedureCatherine L Ly [facility]ov[facility] Work Phone: Start: 05-10-2025 End: 34-20-5088onepouxvmgScdmesqcbsCleveland Clinic Mentor Hospitaltart: 05-10-2025 End: 06-00-2386Uuxpsdabo for antibody response examinationRegional Medical Centertart: 04-24-2025 End: 00-00-4767mrylbzsiuvGCKH NADERERNot AvailableStart: 04-14-2025 End: 65-12-5148Qrzgrd Maurisio Lewis MD Work Phone: NONT CWM FMStart: 04-14-2025 End: 92-32-1072Fmeckm Maurisio Lewis MD Work Phone: NOHS CWM FMStart: 04-14-2025 End: 07-07-3346Snaylv outpatient visit 25 minutesViral Lewis MD Work Phone: NOQI CWM FMComment on above:Internal derangement of left knee (Primary Dx); Acute pain of left knee; Acute vaginitis; DysuriaStart: 04-14-2025 End: 54-58-1657ptbunfqcjfSJFL NADERERNot AvailableStart: 04-11-2025 End: 66-93-1649Csjdpkivg Result EncounterViral Lewis MD Work Phone: noms External Department UnsolicitedStart: 04-11-2025 End: 79-76-3805Jtahwepam Result EncounterViral Lewis MD Work Phone: NOEA External Department UnsolicitedStart: 04-06-2025 End: 19-98-1001Gtatimk encounter procedureViral Lewis MD Work Phone: [facility] HealthcareStart: 04-06-2025 End: 83-95-5987Ywztmcmzz encounterViral Lewis MD Work Phone: NOOP CWM FMStart: 04-05-2025 End: 31-75-2329wqqjtblvdaXAHEKWM J MEYERNot AvailableStart: 04-05-2025 End: 94-12-9623Lbrzil outpatient visit 15 minutesMazofia DEE Work Phone: noms FB ORTHOPAEDICSComment on above:Acute pain of left knee (Primary Dx); Chondromalacia, patella, leftStart: 04-05-2025 End: 15-76-4888Cidshr flowsMaria G DEE Work Phone: [facility] FB ORTHOPAEDICSStart: 04-05-2025 End: 17-21-0013Dtukpv flowsMaria G DEE Work Phone: noms FB ORTHOPAEDICSStart: 03-17-2025 End: 45-86-9133Mmyfukbqa department patient visitBanner Fabienne ADAM Work Phone: [phone]-Bleckefxw Room Work Phone: Start: 03-13-2025 End: 77-79-7447Bpikfz outpatient visit 15 minutesMazofia DEE Work Phone: noms SWS ORTHOComment on above:Acute pain of left knee (Primary Dx); Contusion of left knee and lower leg, initial encounter; Abrasion of left knee, initial encounterStart: 03-13-2025 End: 12-36-6960quybkxhnnaWYJAIHM J MEYERNot AvailableStart: 02-16-2025 End: 35-17-1524shvvavfhecLmejx Sue Weihrauch PA-CFacility:[facility]ertart: 02-01-2025 End: 20-52-0852pepuvctzfvAccqy Sue Weihrauch PA-CFacility:[facility] Start: 02-01-2025 End: 05-18-7789otdbhrkuhgRqsnc Sue Weihrauch PA-CFacility:[facility]tart: 01-30-2025 End: 00-71-7498Lswgrvfot encounterLincarley Rowe MANAGER SOCIAL WORK Work Phone: noms SWS UCStart: 01-30-2025 End: 28-10-5310Loechb outpatient visit 25 minutesChristin Rowe MANAGER SOCIAL WORK Work Phone: noms SWS UCComment on above:Vaginal burning (Primary Dx); DysuriaStart: 01-30-2025 End: 52-49-9443yfbabvhcnhIHBENJA R LACONISNot AvailableStart: 01-16-2025 End: 83-90-4840Drdpwz outpatient visit 25 minutesBree Benitez NP Work Phone: noms SWS UCComment on above:Dysuria (Primary Dx)Start: 01-16-2025 End: 82-41-5823pstayvcoigKywgGio Candelario PA-CFacility:[facility] MainStart: 01-06-2025 End: 43-22-2784otjsetzypyBfewxr Lynn Marcum PA-CFacility:[facility] Start: 09-15-2024 End: 82-75-9533Rmstlqrose mary Lewis MD Work Phone: noms CWM FMStart: 09-15-2024 End: 14-69-3585Kffvcrkai Lewis MD Work Phone: noms CWM FMStart: 09-15-2024 End: 34-83-0150Wedkon outpatient visit 25 minutesViral Lewis MD Work Phone: noms CWM FMComment on above:Duodenal ulcer (Primary Dx); Nonalcoholic fatty liver disease; Chronic rhinosinusitis; Class 2 obesity due to excess calories without serious comorbidity with body mass index (BMI) of 37.0 to 37.9 in adultStart: 09-15-2024 End: 98-61-3361cqicpsngkpGFJE NADERERNot AvailableStart: 09-13-2024 End: 61-59-5843sdhbgxplldNdxqhuucb L LyFacility:[facility]ertart: 08-29-2024 End: 32-59-4948barrosdjvgGrqexzpbg L LyFacility:[facility] Centertart: 08-24-2024 End: 32-41-5583mwtfhfcostVpyko Sue Weihrauch PA-CFacility:[facility] Hospitaltart: 08-24-2024 End: 48-90-5559fckvsbafsiMnkzd Sue Weihrauch PA-CFacility:[facility] HospitalStart: 14-45-8412Kpn-patient / Non-visitMarc Fabienne ADAM Work Phone: [facility] Work Phone: Start: 07-31-2024 End: 89-15-2818rcwrvjldnsHugrpxkcq E DoamekporFacility:[facility] Centertart: 07-31-2024 End: 72-14-2062Mropkoxdsm and management of inpatientMarc Fabienne ADAM Work Phone: [facility] Work Phone: Start: 07-31-2024 End: 50-79-6795wdilmukhzlq encounterMarc Fabienne ADAM Work Phone: [facility] Work Phone: Start: 07-22-2024 End: 03-51-7836gqtittuuqnQwxz Lynn Bollenbacher PA-CFacility:[facility] Hospitaltart: 07-19-2024 End: 09-89-0761jdecwlmsvqHptb Lynn Bollenbacher PA-CFacility:[facility] Hospitaltart: 07-17-2024 End: 83-87-3088GphgwyWubamb L Shanon MANAGER SOCIAL WORK Work Phone: [facility] SWS UCComment on above:Acute vaginitisStart: 07-04-2024 End: 56-15-0350uitmkxnaiqZZOXRJ L HOLBROOKNot AvailableStart: 07-04-2024 End: 67-33-1583Asznlz outpatient visit 25 minutesRachel L Shanon MANAGER SOCIAL WORK Work Phone: [facility] SWS UCComment on above:Acute vaginitis (Primary Dx); DysuriaStart: 07-04-2024 End: 57-88-3072Srmbcpht Result EncounterRachel L [place] MANAGER SOCIAL WORK Work Phone: NOVM External Department UnsolicitedStart: 07-04-2024 End: 23-56-0926Dtvxccrn Result EncounterRachel L Shanon MANAGER SOCIAL WORK Work Phone: noms External Department UnsolicitedStart: 03-22-2024 Patient encounter procedureRarox Martinez MANAGER SOCIAL WORK Work Phone: noms HealthcareStart: 01-12-2024 End: 99-00-2489adruvrsdpfFvfihqomvPremier Health [facility] Work Phone: Start: 01-12-2024 End: 46-04-4241Icwsnhp encounter procedureCar[facility]ont [facility] Work Phone: Start: 11-05-2023 End: 18-23-0773Iikmaqyyg Result EncounterGeneric External Data ProviderNOMS External Department UnsolicitedStart: 11-05-2023 End: 87-76-9539Fvaxbjqru Result EncounterGeneric External Data ProviderNOMS External Department UnsolicitedStart: 93-33-7099Viejkhwfi Result EncounterSmarimar Garcia MD Work Phone: noms External Department UnsolicitedStart: 10-23-2023 Clinisync Result EncounterSmarimar Garcia MD Work Phone: noms External Department UnsolicitedStart: 10-22-2023 Orders OnlyShaikh Jose ADAM Work Phone: noms CWM IMComment on above:Bilateral lower extremity edema (Primary Dx)Start: 10-15-2023 End: 47-77-5651Hsklgl outpatient visit 25 minutesShaikh Jose ADAM Work Phone: [facility] CWM IMComment on above:Bilateral lower extremity edema (Primary Dx); Screening for hyperlipidemia; Screening for diabetes mellitus; Autoimmune hepatitis treated with steroids (CMS/HCC)Start: 95-49-0184Cmqmft Jeffery Garcia MD Work Phone: [facility] CWM IMStart: 49-37-9737Edezmz Jeffery Garcia MD Work Phone: noms CWM IMStart: 13-02-1999Juforkjsm Result Encounter Shaikh Jose ADAM Work Phone: NOOR External Department UnsolicitedStart: 05-05-2023 End: 95-08-1933owqtxphrchYexif Keller Other [place] [employer] Other Start: 46-92-2774Uepaxnahc encounterAmbalexandria [facility] [address] Mountain RoadStart: 04-30-2023 End: 27-70-7157Bytjpjwt ReferredAPRN Faina Miller Work Phone: [facility] Main Portal Work Phone: Start: 04-30-2023 End: 93-16-6200utffxmhgzmRbvql Keller Other [address] [place] [employer] Other Start: 32-68-1749Nkophs outpatient visit 15 minutes Faina [facility] ClydeStart: 11-05-2022 End: 80-87-4032mcnnljvdufWIEVFN H FAWWADFacility:H7Hebjp: 30-28-1053Mgamgjuqh for general adult medical examination without abnormal findingsDR VIRAL LEWIS [facility] Hospitaltart: 10-10-2022 End: 37-06-1169pjcmwtmuxyIL VIRAL Cervantes NADERERFacility:L6Bkmam: 10-10-2022 End: 90-77-1105Luzmabnce for general adult medical examination without abnormal findingsDR VIRAL WANGRFacility:G2Vglwp: 09-03-2022 End: 50-11-3105bwvsgebhqxWsdzjxza McCormack Other [place] [employer] Other Start: 97-16-8738Omfuqdvgd encounterLawrjulito Cotto [facility] GastroenterologyStart: 09-01-2022 End: 38-50-6691Rilfdbr encounter procedureMD Viral Lewis Work Phone: [facility] HospitalStart: 09-01-2022 End: 44-81-5687nxteurritpSE Viral Lewis Work Phone: [facility] Work Phone: Start: 72-49-6975Gijljghen encounterLawrence Dallin [facility] GastroenterologyStart: 01-20-2022 End: 75-13-9105xwtdhsmlpzNHXEEZ H FAWWADFacility:Z8Wxojf: 12-16-2021 End: 41-53-6017nymwllhakhMubkzhrk Dallin Other [employer] Other Start: 79-68-5055Jfugcdf encounter procedureLawrjulito McCormackFPG GastroenterologyStart: 10-23-2021 End: 29-36-4688sebgzoabluJbkhqm Dymond Other [employer] Other Start: 63-64-4607Byvtit outpatient visit 15 minutes Ellei KempFPBunny Urgent Care ClydeStart: 10-21-2021 End: 93-10-4504otvpfjpjsaVdidlmpe Dallni Other [employer] Other Start: 33-69-1639Gnljgwojm encounterLawrence Dallin [facility] GastroenterologyStart: 10-11-2021 End: 96-83-7685hpmypcjzoqKxbugvgj Dallin Other [employer] Other Start: 52-75-3794Rixxcywex encounterLawrence Dallin [facility] GastroenterologyStart: 09-24-2021 End: 05-40-8830nydpdylhrbSzxbzmhw Dallin Other [employer] Other Start: 42-50-3787Lmxued outpatient visit 15 minutes Nir Schultz GastroenterologyStart: 72-65-7063Omjrxom encounter procedureElian LuqueHqwbhhKF-Dvhxgjlcd-SfyfawfAurora Hospital [address] [employer] Work Phone: Start: 39-99-3766Eisvlef encounter procedureElian KrhmzhQR-Yhtdfcjyz-ZnunkvqVibra Hospital Of [facility] [address] Work Phone: Start: 54-78-0306Nlcxkss encounter procedureElian EnglishFenfnaRX-Lwcpinexs-XyzkoitForrest General Hospital [address] Work Phone: Start: 39-41-5794Esqexnc encounter procedureElian FdvnsdEX-Lyzyghxrd-DiutnroForrest General Hospital [address] Work Phone: Procedures DateProcedureProcedure DetailPerforming ClinicianStart: 58-05-0465RFA CBC WITH AUTO DIFFViral Lewis MD Work Phone: Start: 56-38-1368Hlwjejpsuwakbv aspir&/inj major jt/bursa w/o usMattmaria esther DEE Work Phone: Start: 17-27-8551IR of abdomen and pelvis without contrastViral Lewis MD Work Phone: Start: 57-19-0965Rqbgy cultureViral Lewis MD Work Phone: Start: 68-51-7775IrstcjzjrtqIcggpoo Meyer PA Work Phone: Start: 99-52-6958ZZKR CEPHEID MVPLynes Rowe MANAGER SOCIAL WORK Work Phone: Start: 17-24-0365YIVGLJXMYHH GENITOURINARY INFECTION (HTRX)Christin Rowe MANAGER SOCIAL WORK Work Phone: Start: 41-74-5607Uvdpy dip stick/tablet rgnt auto w/o microscopyAramis Goodson DO Work Phone: Start: 78-77-5952EFMOZWSETC/DISCHARGE (HTRX)Bree Benitez MANAGER SOCIAL WORK Work Phone: Start: 59-14-9688Nhrlt dip stick/tablet rgnt auto w/o microscopyAramis Goodson DO Work Phone: Start: 30-07-9014ZwkuocgbeegsgxeouelhookvyxVyux Naderer MD Work Phone: Start: 25-41-3588YW of abdomen and pelvis without contrastViral Lewis MD Work Phone: Start: 23-52-7323IYGHMWBDGKTGB INFECTION (HTRX)Dallin Martinez MANAGER SOCIAL WORK Work Phone: Start: 74-50-4414Yglas dip stick/tablet rgnt auto w/o microscopyAnthony Bunny Goodson DO Work Phone: Start: 79-76-0358GmrogjrbnypTtwzim Shanon MANAGER SOCIAL WORK Work Phone: Start: 44-72-1839[place] FACILITY EST COMPREHENSIVEGeneric External Data ProviderStart: 04-75-4503QW EXT VENOUS REFLUX FARIHA LMTDGeneric External Data ProviderStart: 46-85-1331LLS Kavitha Garcia MD Work Phone: Start: 36-73-8472PAS CBC WITH AUTO DIFFShaikh Jose ADAM Work Phone: Start: 58-49-2933FosqkelsrxvIlnylq Fawwad MD Work Phone: Start: 31-44-6683Qaxzxj-up visitStart: 02-14-2020 Follow-up visitStart: 74-05-3216Xcaeht-up visit Plan of Treatment DateCare ActivityDetailAuthorStart: 06-99-8775Vtgkbiiop for malignant neoplasm of colonNOMS HealthcareStart: 40-08-2721Fwvvdfokr for malignant neoplasm of breastMammogramNOMS HealthcareStart: 55-09-8047GvosifzplParma Community General Hospital Start: 31-13-7296Kuxnqefde vaccinationInfluenza Vaccine (#1)[facility] Start: 04-14-2025 End: 42-70-6237SV Knee - left WO contrastMR knee left wo IV contrast Imaging Routine Internal derangement of left knee Acute pain of left knee Expected: 04/14/2025, Expires: 04/14/2026[facility] Work Phone: Comment on above:Expected: 04/14/2025, Expires: 04/14/2026Start: 04-14-2025 End: 60-26-4172Iuhtcgl encounter procedureNOMS CWM FMComment on above:Arrived Start: 04-06-2025 End: 99-63-2690Xbqon metabolic 1998 panel - Serum or PlasmaBasic metabolic panel Lab Routine Annual physical exam Expected: 04/06/2025 (Approximate), Expires: 04/06/2026OR HealthcareComment on above:Expected: 04/06/2025 (Approximate), Expires: 04/06/2026Start: 04-06-2025 End: 04-06-2026 reactive protein [Mass/volume] in Serum or PlasmaC-reactive protein Lab Routine Autoimmune hepatitis treated with steroids (HCC) Expected: 04/06/2025 (Approximate), Expires: 04/06/2026MS HealthcareComment on above: Expected: 04/06/2025 (Approximate), Expires: 04/06/2026Start: 04-06-2025 End: 10-92-3127PSE W Auto Differential panel - BloodCBC and differential Lab Routine Annual physical exam Expected: 04/06/2025 (Approximate), Expires: 0 04/06/2026 HealthcareComment on above:Expected: 04/06/2025 (Approximate), Expires: 04/06/2026Start: 04-06-2025 End: 16-14-9659Bvrzeplygma sedimentation rateSedimentation rate, automated Lab Routine Arthralgia, unspecified joint Expected: 04/06/2025 (Approximate), Expires: 04/06/2026NOMS HealthcareComment on above:Expected: 04/06/2025 (Approximate), Expires: 04/06/2026Start: 04-06-2025 End: 49-29-2442Pdusxigpes A1c/Hemoglobin.total in BloodHemoglobin A1c Lab Routine Annual physical exam Expected: 04/06/2025 (Approximate), Expires: 04/06/2026NO Healthcare Work Phone: Comment on above:Expected: 04/06/2025 (Approximate), Expires: 04/06/2026Start: 04-06-2025 End: 08-07-0592Fgshlsy function 2000 panel - Serum or PlasmaHepatic function panel Lab Routine Annual physical exam Expected: 04/06/2025 (Approximate), Expires: 04/06/2026NOOR HealthcareComment on above:Expected: 04/06/2025 (Approximate), Expires: 04/06/2026Start: 04-06-2025 End: 33-02-2189Ljjcs 1996 panel - Serum or PlasmaLipid panel Lab Routine Annual physical exam Expected: 04/06/2025 (Approximate), Expires: 04/06/2026[facility] HealthcareComment on above:Expected: 04/06/2025 (Approximate), Expires: 04/06/2026Start: 04-06-2025 End: 57-27-2105Zbntypn Ab [Titer] in Serum by ImmunofluorescenceANA Lab Routine Arthralgia, unspecified joint Expected: 04/06/2025 (Approximate), Expires: 04/06/2026NOOR HealthcareComment on above:Expected: 04/06/2025 (Approximate), Expires: 04/06/2026Start: 04-06-2025 End: 62-92-0363Bzaqgdfidu factor [Units/volume] in Serum or PlasmaRheumatoid factor Lab Routine Arthralgia, unspecified joint Expected: 04/06/2025 (Approximate), Expires: 04/06/2026[facility] HealthcareComment on above:Expected: 04/06/2025 (Approximate), Expires: 04/06/2026Start: 04-06-2025 End: 63-96-1888WRM W/REFLEX TO FT4TSH W/REFLEX TO FT4 Lab Routine Annual physical exam Expected: 04/06/2025 (Approximate), Expires: 04/06/2026NOOR HealthcareComment on above:Expected: 04/06/2025 (Approximate), Expires: 04/06/2026Start: 03-28-2025 End: 39-65-2367Fqhzzqn encounter /15/2025 3:00 PM EDT Office Visit [facility] [address] [place] [id number] Claudia Otto PA [address] [place] [address] [facility]THOPAEDICSStart: 57-53-9782Hoysr Samaritan Hospitaltart: 97-78-8319Jzvyldkj identified in Urine by Culture Urine CultureSouthern Ohio Medical Centertart: 14-48-1089Vubmdaxrm for malignant neoplasm of breastMammogramNOMS HealthcareStart: 09-15-2024 End: 02-38-9462Ofqzpqs encounter elonvnapa40/02/2025 1:45 PM EST Office Visit [facility] [address] [place] [address] Viral Lewis MD [address] [place] [address] ArrivedPARK [facility]IT[facility] FMComment on above:ArrivedStart: 97-83-3239EgbofmxswSouthern Ohio Medical Centertart: 67-35-2419Wspdvrog to gastroenterologistSouthern Ohio Medical Centertart: 58-57-3319Zvckshxy identified in Urine by Culture Urine [facility] Hospitaltart: 45-12-6544Mbclumrn admissionSouthern Ohio Medical Centertart: 07-31-2024 End: 16-92-9151DgwrqTriHealth Bethesda North Hospitaltart: 01-14-2024 Screening for malignant neoplasm of breastMammogramNOMS HealthcareStart: 10-15-2023 End: 20-48-4758Fswgvhw encounter ufzmqiuuf31/01/2024 2:45 PM EST Office Visit [facility] [address] [place] [address] Shaikh Garcia MD [address] [place] [address] [facility] IMComment on above:ArrivedStart: 10-15-2023 End: 97-83-7974DFE W Auto Differential panel - BloodCBC and differential Lab Routine Bilateral lower extremity edema Autoimmune hepatitis treated with s teroids (CMS/HCC) Expected: 10/15/2023 (Approximate), Expires: 10/15/2024NOOR HealthcareComment on above:Expected: 10/15/2023 (Approximate), Expires: 10/15/2024Start: 10-15-2023 End: 89-38-2842Opmbozrrkglqz metabolic 2000 panel - Serum or PlasmaComprehensive metabolic panel Lab Routine Bilateral lower extremity edema Autoimmune hepatitis treated with steroids (CMS/HCC) Expected: 10/15/2023 (Approximate), Expires: 10/15/2024NOOR HealthcareComment on above:Expected: 10/15/2023 (Approximate), Expires: 10/15/2024Start: 10-15-2023 End: 89-30-8592Lhxiemrrue [Mass/volume] in UrineCreatinine, urine, random Lab Routine Bilateral lower extremity edema Expected: 10/15/2023 (Approximate), Expires: 10/15/2024NOMS HealthcareComment on above:Expected: 10/15/2023 (Approximate), Expires: 10/15/2024Start: 10-15-2023 End: 59-71-1208Ahhktuqgbs A1c measurementHemoglobin A1c Lab Routine Screening for diabetes mellitus Expected: 10/15/2023 (Approximate), Expires: 10/15/2024 NOMS HealthcareComment on above:Expected: 10/15/2023 (Approximate), Expires: 10/15/2024Start: 10-15-2023 End: 61-10-5785Rrkcm 1996 panel - Serum or PlasmaLipid panel Lab Routine Screening for hyperlipidemia Expected: 10/15/2023 (Approximate), Expires: NOOR HealthcareComment on above:Expected: 10/15/2023 (Approximate), Expires: 10/15/2024Start: 10-15-2023 End: 20-22-7926Mpqpzpf, urine, randomProtein, urine, random Lab Routine Bilateral lower extremity edema Expected: 10/15/2023 (Approximate), Expires: 10/15/2024NOMS HealthcareComment on above:Expected: 10/15/2023 (Approximate), Expires: 10/15/2024Start: 10-15-2023 End: 45-66-8144Dqxomlpu US lower extremity venous insufficiency bilateral Vascular US lower extremity venous insufficiency bilateral Imaging Routine Bilateral lower extremity edema Expected: 10/15/2023, Expires: 10/15/2024[facility] Healthcare Work Phone: Comment on above:Expected: 10/15/2023, Expires: 10/15/2024Start: 67-36-7476BwlwxowxzSouthern Ohio Medical Centertart: 2007 Screening for malignant neoplasm of cervixNOMS HealthcareStart: 1998 Screening for malignant neoplasm of cervixPap SmearNOOR HealthcareStart: 53-95-8290Topczjcqq for malignant neoplasm of colonNOOR HealthcareActin smooth muscle IgG Ab [Units/volume] in SerumAshtabula General Hospital Ctr Work Phone: Atopobium vaginae DNA [Presence] in Vaginal fluid by ABRAHAN with probe detectionParma Community General HospitalBacterial vaginosis associated bacterium 2 DNA [Presence] in Vaginal fluid by ABRAHAN with probe detecti onParma Community General HospitalComprehensive metabolic 2000 panel - Serum or PlasmaParma Community General HospitalGENITO/STIGENITO/STI Lab Routine Dysuria Ordered: 07/04/2024[facility] Healthcare Work Phone: Comment on above:Ordered: 07/04/2024Homogenous nuclear Ab pattern [Titer] in SerumE[facility] Work Phone: Megasphaera sp type 1 DNA [Presence] in Vaginal fluid by ABRAHAN with probe detectionParma Community General HospitalNuclear Ab [Titer] in SerumElyria Memorial Hospital Work Phone: Patient EducationAshtabula General Hospital Ctr Work Phone: Patient referralElyria Memorial Hospital Work Phone: POCT CEPHEID MVPPOCT CEPHEID MVP Point of Care Testing Routine Dysuria 01/30/2025 1:02 PM EDTGUNNISON VALLEY [facility] Healthcare Work Phone: [phone]-RssuuxplzSioux County Custer [facility] [address] Work Phone: NEGATED: Highlighted row has been ruled out!Planned Goals not ygkfkudiryES-Cafikbceq-SftnrrsTippah County Hospital [address] Work Phone: Immunizations Immunization DateImmunizationNotesCare XnzwybceStctvrvn51-37-1975lzwdezmnz virus vaccine, unspecified formulationMazofia DEE Work Phone: NOSaint Joseph Hospital of KirkwoodWkwiopbvid66-09-6322Ryhbanehg, injectable, [place] Canine Kidney, preservative free, quadrivalentShaikh Jose ADAM Work Phone: [facility] HospitalTrjijypkkb02-58-8866wbsjdxb toxoid, reduced diphtheria toxoid, and acellular pertussis vaccine, adsorbedShaikh Jose ADAM Work Phone: [facility] HospitalLmtreejajq34-14-3399rsesmmtbqc, tetanus toxoids and acellular pertussis vaccineSmarimar Garcia MD Work Phone: [facility] HospitalWjvscykzfc88-17-7865xqgojewggy vaccine, inactivatedShaikh Jose ADAM Work Phone: noSaint Joseph Hospital of KirkwoodPduwegawkv17-45-4932vaajxzgfio, tetanus toxoids and acellular pertussis vaccineSmarimar Garcia MD Work Phone: GRSaint Joseph Hospital of KirkwoodRnfbxmoogh99-75-3530zglinvvple vaccine, inactivatedShaikh Jose ADAM Work Phone: [facility] HospitalMvubcipndm89-26-5769ipzpbkv, mumps and rubella virus vaccineSmarimar Garcia MD Work Phone: [facility] HospitalBfaxdvfbyo17-20-4617ycbbdinodj, tetanus toxoids and acellular pertussis vaccineSmarimar Garcia MD Work Phone: [facility] HospitalRpevxgjojr58-18-6613eooogkofzg vaccine, inactivatedShaikh Jose ADAM Work Phone: GESaint Joseph Hospital of KirkwoodEbqwwyzamn96-49-2193epwxinxazo, tetanus toxoids and acellular pertussis vaccineSmarimar Garcia MD Work Phone: noSaint Joseph Hospital of KirkwoodZktdtaouek59-10-3163ulpqhcbulh vaccine, inactivatedShaikh Jose ADAM Work Phone: noSaint Joseph Hospital of KirkwoodTwgiljolol67-67-3106giamaohbuk, tetanus toxoids and acellular pertussis vaccineSmarimar Garcia MD Work Phone: noSaint Joseph Hospital of KirkwoodRcmjhzzhps14-23-5982oygrbipegk vaccine, inactivatedShaikh Jose ADAM Work Phone: [facility] Payers DatePayer CategoryPayerPolicy [id number]-tvp [id number] Cross Blue ShieldBCBS [id number]8245.12272-38-4820Hqflnre 1.2.840.664136.1.13.693.2.7.3.09733[id number] 2..1.981285.3.579.2.70827-46-7107Dwdojdj0300079 2..1.494973.3.57[id number] 2..1.739434.3.579.2.37137-72-2322Vqdnxzy893439783 2..1.961484.3.579.2.[id number] 2.16.840.1.351629.3.57[id number] 2.16.840.1.168818.3.579.[id number] 2.16.840.1.159592.3.57[id number] 2.16.840.1.275489.3.579.2.73888-67-5572Lxvbxwz126989668 2.16.840.1.422339.3.579.2.89876-34-2352Wibuvjb085209933 2.16.840.1.011526.3.579.2.18894-76-5835Rggiutl771748757 2.16840.1.821384.3.579.2.82824-11-6498Rhdiune035966511 2.16.840.1.456837.3.579.2.[id number] 2.16.840.1.340256.3.579.2.90335-30-2319Rimkgka975895997 2.16.840.1.785597.3.579.2.98200-21-4597Epjawbv693181090 2..840.1.614501.3.579.2.04885-24-8292Fpczzec766549685 2.16.840.1.678860.3.579.2.22887-92-5749Dttklxv861015715 2.16.840.1.692246.3.579.2.13175-75-3032Yuwyifu32142021 2.16.840.1.350968.3.579.2.979739-99-0255Jdxuxvo94598519 2.16.840.1.250251.3.579.2.318535-82-6941Fohwjrg22715837 2.0.1.464743.3.579.2.720659-22-4168Hacfmbx81297180 2..840.1.931305.3.579.2.486180-39-4170Dtczqiz9466493 2.0.1.878978.3.579.2.897849-70-4501Mwkdevu6050819 2..840.1.102556.3.579.2.748520-79-7380Ykrjpdt2464263 2.0.1.969671.3.579.2.212499-04-2347Rijfdsq9310190 2.0.1.904501.3.579.2.717328-31-7876Sftu Cross Blue QehfjsDEQOO1586292 2.0.1.521725.50Zbthvlk93129313 2.840.1.307937.3.579.2.202Xuymhsl21892577 2.0.1.456892.3.579.2.516Gjqkyjd81345209 2.840.1.009398.3.579.2.531 Bobcvww07522006 2.840.1.333496.3.579.2.303Kgisosw22540238 2..1.204078.3.579.2.531 Social History DateTypeDetailFacilityStart: 09-25-2023 End: 24-62-4409Xkk Assigned At [facility] [employer] Other Start: 07-19-2019 End: 36-31-6300Lhrmlpj smoking status NHISNever smoked tobacco (finding) [facility]ertart: 68-20-0228Ykd Assigned At [facility]organtonFeSumma Healthtart: 04-07-2023 End: 81-23-3465Yqiqkeu use and exposureSmokeless tobacco non-userNOMS Healthcare Start: 09-25-2023 End: 81-99-8248Kmqkgoz intakeLifetime non-drinker (finding)[facility] HealthcareStart: 09-25-2023 End: 73-79-2996Rkmsxnk of Social functionNOMS HealthcareStart: 04-55-7108Uwvyunh CommentCaffeine: sodaNOMS HealthcareStart: 42-62-4632Kbk Assigned At BirthNot on fileNOMS HealthcareStart: 07-31-2024 End: 13-19-5207CkaQwfhme (finding)[facility] Centertart: 10-16-8936IelNnshnxAHTI HealthcareNEGATED: Highlighted row--[facility] [address] Work Phone: NEGATED: Highlighted rowStart: NINFHistory of tobacco usePassive smokerNOMS HealthcareNEGATED: Highlighted rowParma Community General Hospital Goals DatePatient GoalDesired Activity/State Functional Status ZqjeLqprawmumjXdcufiNljwldcw30-11-3159Qphygupoyd statusPatient at Baseline [facility] Work Phone: [phone]kdl Health Questionnaire 2 item (PHQ-2) [Reported][facility] HealthcareNEGATED: Highlighted rowFunctional performance Functional status health issues are not documented IipustaHK-Vszvcjkpz-TyschaiTippah County Hospital [address] Work Phone: Mental Status AltdRsvgtmndroXuokduIhdvvqnv62-70-0241Wgxigwcvn functionCognitive Status Patient at BaselineElyria Memorial Hospital Work Phone: NEGATED: Highlighted rowCognitive function [Interpretation]Cognitive status health issues are not documented Disease [facility] [address] Work Phone: Clinical Notes 09-24-2021 to 05-19-2025 Note Date & UoptUdcdHzvilfig45-89-5249 Evaluation note* Diagnosis Onset Date Resolution Status Admit Date Autoimmune hepatitis acuteSeptember 2024 10:15amDuodenal ulceracuteSeptember 2024 10:15am Epigastric abdominal painacuteSeptember 2024 10:15amGERD (gastroesophageal reflux disease)acuteSept2024 10:15am [facility] Work Phone: 1(437) 788-818108-01-2025 History of Present illness Narrative* Viral Lewis MD - 04/14/2025 12:11 PM EDTAssociated Problem(s): Internal derangement of left knee Pain after fall and exam suggestive of meniscal injury. No improvement with conservative treatment and steroid. X-ray normal 03/12. Check MRI and will need to follow up with ortho. * Viral Lewis MD - 04/14/2025 11:45 AM EDT Images from the original note were not included. Subjective Patient ID: Trudy Wilder is a 49 y.o. female who presents for Knee Pain and Follow-up (Yeast infection). C/o left knee pain for several weeks. Playing softball 03/10 and fell landing straight down on left knee. Severe pain right away and pain since. Knee feels tight. Pain to flex knee and feels like not able to fully extend knee. Pain with walking and standing. Increased pain at end of day and after work. Knee feels very tight. Seen by ortho and had injection 04/05 but no change. Knee very tender to touch. Frequent popping, clicking, and grinding. Prior meniscal injury and arthroscopic surgery on that knee about 10 years ago. Concerned something wrong and not improved after several weeks. Using OTC PRN and minimal relief. Review of Systems Respiratory: Negative for cough, [...] No edema. Left lower leg: No edema. Comments: Decreased ROM and pain with flexion past 90 degrees. Ligaments intact, Yoselyn's with good endpoint. Kuldeep's reveals mild discomfort on inside of knee. Neurological: Mental Status: She is alert. Assessment/Plan Problem List Items Addressed This Visit Acute pain of left knee Relevant Orders MR knee left wo IV contrast Internal derangement of left knee - Primary Pain after fall and exam suggestive of meniscal injury. No improvement with conservative treatment and steroid. X-ray normal 03/12. Check MRI and will need to follow up with ortho. Relevant Orders MR knee left wo IV contrast Other Visit Diagnoses Acute vaginitis Relevant Medications metroNIDAZOLE (Flagyl) 500 MG tablet Dysuria Relevant Medications fluconazole (Diflucan) 150 MG tablet documented in this encounterPutnam County Memorial HospitalFuenbfvajs13-87-6379 Telephone encounter Note* Telephone Encounter - Viral Lewis MD - 04/06/2025 1:54 PM EDT Lab order in chart, please fax. [facility] HospitalFpsvuuilkd97-75-8198 Miscellaneous Notes* Telephone Encounter - Viral Lewis MD - 04/06/2025 1:54 PM EDT Lab order in chart, please fax. * Telephone Encounter - Toshia Jt - 04/06/2025 9:26 AM EDT Trudy would like an order for blood work to check levels concerning her autoimmune disease. She is tired and itchy. [phone]. documented in this encounterNOSaint Joseph Hospital of KirkwoodVdgseajldq12-98-8359 Telephone encounter Note* Telephone Encounter - Toshia Kathleenlucy - 04/06/2025 9:26 AM EDT Trudy would like an order for blood work to check levels concerning her autoimmune disease. She is tired and itchy. [phone]. [facility] Jxsxbawukr74-42-8362 History of Present illness Narrative* LEILA Brock - 04/05/2025 2:45 PM EDTAssociated [...] requiring urgent evaluation. Visit was preformed using [employer] speech recognition. documented in this encounterPutnam County Memorial HospitalSvvssmpogh91-32-9430 Radiology Diagnostic study [facility] Main Portal [address] [place] [address] CT Scan Report Signed Patient: Trudy Wilder MR#: [id number] : 1975 Acct:[id number] Age/Sex: 49 / F ADM Date: 5 Loc: ER Room: Type: [facility] ER Attending Dr: Copies to: CHELSY Leslie~ Ordering Provider: CHELSY Leslie Date of Service: 03/17/25 CT/CT abdomen pelvis wo con: Abdominal Pain CT ABDOMEN AND PELVIS WITHOUT INTRAVENOUS CONTRAST: CLINICAL HISTORY: Epigastric pain for days, nausea COMPARISON: 07/31/2024 TECHNIQUE: Spiral images were obtained through the abdomen and pelvis without intravenous contrast.This CT exam was performed using one or more following dose reduction techniques: Automated exposure control, adjustment of the mA and/or kV according to patient size, or use of iterative reconstruction technique. FINDINGS: Lung Bases: [Minimal hypoventilatory changes] Organs:Liver, gallbladder, spleen, adrenals, kidneys, and pancreas are unremarkable . No nephrolithiasis . No hydronephrosis.[ GI: Mild retained stool within colon. No bowel obstruction. Appendix is normal.[ Pelvis:[Bladder unremarkable. Uterus absent. No adnexal mass.] Peritoneum/Retroperitoneum:No free air or free fluid. There are calcifications adjacent the distal ureters identified[ Abd wall/Bones:No suspicious osseous lesion.[ CT/CT abdomen pelvis wo con IMPRESSION: Negative for nephrolithiasis/obstructive uropathy. Negative acute inflammatory process or bowel obstruction Impression dictated by: Jeovanny Comer M.D. 03/17/2025 4:51 PM Dictation Location: [facility]-- Transcribed By: [facility] 03/17/25 165 Dictated By: Jeovanny Comer MD 03/17/25 164 Signed By: 03/17/251650 [facility] Work Phone: 1(784) [phone] History of Present illness Narrative* LEILA Brock - 03/13/2025 11:15 AM EDT Images from the original note were not included. Orthopedic Office note: NAME: Trudy Wilder : 1975 (EST PT) (LAST APPT W/ NICOL) (NEW PROBLEM) - (L) KNEE DISCOMFORT S/P INJURY (03/10/25) - FALL WHILE PLAYING SOFTBALL - LANDED ON (L) KNEE XRAY 03/12/25 @[facility] IN [facility]ANGE ADMITS DIFFUSE DISCOMFORT / SWELLING. DISCOMFORT WORSE [...] SCOPE (TORN MENISCUS) @[facility] ~10 YRS AGO RECENTLY DX DUODENAL ULCERS Physical Exam General Appearance: Normal. Respiratory: No acute distress. Musculoskeletal: Left Knee: Healing abrasion over patella, no erythema, discharge, or drainage. Trace swelling to inferior patella, patellar tendon, anterior tibial tubercle into proximal tibia. Compartments soft. No significant bruising, tenderness to light touch. No focal hematoma. Nontender along MCL and LCL, no pain with MCL or LCL stressing in full extension or 45 degrees of flexion. Anterior drawer symmetric to contralateral knee. Mild patellofemoral crepitus, nontender. Pain directly to anterior knee involving soft tissues. Full knee extension 5/5 without pain. Knee flexion discomfort peripatellar 5/5. No reported paresthesias in lower leg. Posterior tibial pulse 2+. Negative Riley 's test. Good strength with ankle dorsiflexion and plantar flexion 5/5. No pain with hip internal and external rotation. Negative Michael's test both medial and lateral. No patellar apprehension. Skin: Warm and dry, no rash. Neurological: Normal. No orders of the defined types were placed in this encounter. Procedures Results Xray 03/12/25: TBH: No acute fracture or dislocation, no effusion - Imaging: - X-ray of the left knee: No focal prominence for chondral contusion or mild prepatellar bursitis. Extensor mechanism is intact with a strong straight leg raise. ICD-10-CM 1. Acute pain of left knee M25.562 2. Contusion of left knee and lower leg, initial encounter S80.02XA S80.12XA 3. Abrasion of left knee, initial encounter S80.212A Assessment & Plan Left anterior knee contusion. However, an underlying chondral contusion or mild prepatellar bursitis cannot be ruled out, although there is no focal prominence for these conditions. Her extensor mechanism remains intact with a strong straight leg raise. Outpatient x-rays were reviewed. Treatment plan: A regimen of ice and elevation has been recommended. Given her history of duodenal ulcers, the use of Motrin is not advised. Tylenol may be taken as needed. The use of an Jovan wrap on the knee for support when mobile for more than 10 minutes was discussed, with removal during rest periods with elevation. The importance of normalizing gait function to minimize additional symptoms was emphasized. If symptoms persist, formal therapy or an MRI will be considered. Follow-up: The patient will follow up in 2 weeks. Questions answered in laymen terms at the bedside. The diagnosis, home exercise plan and any ongoing restrictions/ recommendations reviewed. If unable to be reached in office, I recommend evaluation at nearest Emergency Room if any symptoms worsened or new symptoms develop for requiring urgent evaluation. Visit was preformed using [employer]-airplane patrol pilot speech recognition. documented in this [facility]05-19-2025 Telephone encounter Note* Telephone Encounter - Christin Rowe NP - 01/30/2025 1:19 PM EDT IH testing for BV, yeast, trich negative. Will await send out results and contact her with those when available. [facility] Tsjyfmhfph18-65-2158 Miscellaneous Notes* Telephone Encounter - Christin Rowe NP - 01/30/2025 1:19 PM EDT IH testing for BV, yeast, trich negative. Will await send out results and contact her with those when available. documented in this [facility]05-19-2025 History of Present illness Narrative* Christin Rowe NP - 01/30/2025 10:25 AM EDT Images from the original note were not included. [address] , [address] [facility], [address] P: [phone] F: [phone] [facility] Historian of [facility]: patient Trudy Wilder is a 49 y.o. [...] help. Pt dropped her urine sample cut inthe toilet and is waiting to give us [...] 2 tablet; Refill: 0 documented in this encounterPutnam County Memorial HospitalRbctxmourn24-14-0811 History of Present illness Narrative* Bree Benitez NP - 01/16/2025 4:10 PM EDT HPI: Historian of HPI: patient Trudy Wilder is a 49 y.o. female who presents today to the Urgent Care with the following complaints and denials which have been present for 1 month(s) Pt states she was recently just treated for a UTI and was called in clindamycin cream which has nothelped. Pt states she was tested for STI, BV, and a vaginal swab was collected and sent out to the lab. Pts results were abnormal. She was not called by anyone at this facility and has results on herphone. Pt states she feels like she needs [...] [facility] She has results on phone + for [...] 0 - URETHRITIS/DISCHARGE (HTRX) documented in this encounterPutnam County Memorial [id number] History of Present illness Narrative* Viral Lewis MD - 09/15/2024 2:34 PM ESTAssociated Problem(s): Class 2 obesity due to excess calories without serious comorbidity with body mass index (BMI) of 37.0 to 37.9 in adult Weight loss indicated * Viral Lewis MD - 09/15/2024 2:33 PM ESTAssociated Problem(s): Nonalcoholic fatty liver disease Follow with GI. * Viral Lewis MD - 09/15/2024 2:33 PM ESTAssociated Problem(s): Duodenal ulcer Continue medication and follow with GI. * Viral Lewis MD - 09/15/2024 2:32 PM ESTAssociated Problem(s): Chronic rhinosinusitis Continued symptoms and treat with augmentin. Start simona. * Viral Lewis MD - 09/15/2024 1:45 PM EST Images from the original note were not included. Subjective Patient ID: Trudy Wilder is a 48 y.o. female who presents for Follow-up ([facility] hospital f/u). Hospital follow up from 07/31-08/01 for nausea, vomiting, and abdominal pain. Developed severe painand to ER. CT showed fatty liver and [...] postnasal drip. Ears plugged. Using flonase PRN andclaritin daily but not helping. Review of Systems [...] (Simona) 180 MG tablet documented in this encounterAsh[place] [id number] Telephone encounter Note* Telephone Encounter - Dallin Martinez NP - 08/04/2024 10:39 AM EST Needs to be seen for possible refills [facility] Work Phone: [phone] Miscellaneous Notes* Telephone Encounter - Dallin Martinez NP - 08/04/2024 10:39 AM EST Needs to be seen for possible refills documented in this [facility]11-18-2024 [place] [address] EGD Procedure Note Signed Patient: Trudy Wilder MR#: [id number] : 1975 Acct:[id number] Age/Sex: 48 / F Adm Date: 4 Loc: Room: [address] [place] [address] Type: ADM INOo Attending Dr: Spenser Yarbrough MD Copies to: MD Spenser Mckeon MD Marc Naderer, MD~ Esophagogastroduodenoscopy Date/Provider Date: 08/01/2024 Bowen Lozano MD Narrative Narrative: Procedure: EGD with biopsy Indication: 48-year-old female admitted with dyspepsia, CT scan showing possibleduodenitis, historyof recent NSAID use, history of H. pylori with unconfirmed eradication Pre-operative diagnosis: Dyspepsia, abnormal abdominal CT, NSAID use, history ofH. pylori Post-operative diagnosis: Peptic ulcer disease, duodenal ulcers, gastritis, hiatal hernia Sedation: propofol per anesthesia dept O2 oximetry, hemodynamic monitoring was performed pre, during, and post procedure. Patient was identified, H&P completed, patient was given full explanation of the procedure as well as associatedrisks and written consent wasobtained prior to procedure. Patient expressed complete understanding of the procedure as well as alternatives to the procedure and to anesthesia and agreed to proceed with the procedure as indicated. Patient was immediately reassessed prior to IV sedation. Following IV sedation, patient was placed in the left lateral decubitus position. Bite block was inserted. Endoscope was passed through the mouth, into the esophagus. Endoscope was advanced into the stomach through the pyloricchannel and into the 2nd portion of duodenum by direct visualization. Endoscopewas withdrawn into the stomach and retroflexion was performed. The endoscope was straightened,the stomach was decompressed. Endoscope was withdrawn into the esophagus then completely removed with the findings as below. Findings: DUODENUM: 2 large clean-based ulcers in the bulb, unremarkable descending duodenum. No active bleeding, no blood. STOMACH: Mild antral gastritis with a few small erosions. Remainder the stomachwas normal. Biopsiesobtained, bottle 1-rule out H. pylori. ESOPHAGUS: Diaphragmatic hiatus was 37 cm from incisors. GE junction (upper margin of gastric folds) was at 35 cm from incisors. Squamocolumnar junction was at 35 cm from incisors. Biopsies obtained from the mid-proximal esophagus, bottle 2-rule out EOE. Biopsy taken: Yes Complications: None EBL: minimal Recommendations: -Any patient with concern for peptic ulcer disease, upper GI bleeding, duodenitis, heavy NSAID use etc. should be loaded with a bolus of 80 mg PPI. -Okay to transition to 40 mg twice daily for 8 weeks, then 40 mg once daily given her need for NSAIDs for her migraines -The GI office will follow-up her pathology for H. pylori and EOE -Follow-up with the GI office pending path Thank you for this consult, little further to add from a GI standpoint. I will peripherally follow. Following a period of recovery, patient was seen and given full explanation of the procedure. Patient tolerated the procedure well [facility] Bowen Lozano MD Documented By: Bowen Lozano MD 08/01/24 1040 Signed By: 08/01/24 1043 [facility]11-18-2024 Consult note Author Bowen Lozano [facility] HospitalNote Date/TimeNovember 2023 8:18am [place] [id number] Gastroenterology Consult Note Signed Patient: Trudy Wilder MR#: [id number] : 1975 Acct:[id number] Age/Sex: 48 / F Adm Date: 4 Loc: 3T Room: 5V0447-9 Type: ADM INOo Attending Dr: Spenser Yarbrough [...] migraines recently and had several presentations to [facility] ER where she was given Toradol. She [...] Normal lipase. cc:: CC: Spenser Yarbrough MD [facility] Medical History (Updated 08/01/24 @ 08:18 by [...] % (Auto) 59.0 Lymph % (Auto) 32.8 Moody % (Auto) 7.1 Eos % (Auto) 0.5 Baso % (Auto) 0.6 Nucleat RBC Rel Count 0.1 Neut # (Auto) 5.1 Lymph # (Auto) 2.8 Moody # (Auto) 0.6 Eos # (Auto) 0.0 [...] Cloudy A Urine pH 5.5 Ur Specific [place] 1.023 Urine Protein Negative Urine Glucose (UA) [...] % (Auto) 34.2 Lymph % (Auto) 52.7 Moody % (Auto) 8.2 Eos % (Auto) 4.5 Baso % (Auto) 0.4 Nucleat RBC Rel Count 0.2 Neut # (Auto) 2.1 Lymph # (Auto) 3.3 Moody # (Auto) 0.5 Eos # (Auto) 0.3 [...] Color Urine Appearance Urine pH Ur Specific [place] Urine Protein Urine Glucose (UA) Urine Ketones [...] signed by Bowen Lozano MD> 08/01/24 0818 [facility] Work Phone: 1(824) 109-525611-18-2024 [place] [address] Gastroenterology Consult Note Signed Patient: Trudy Wilder MR#: [id number] : 1975 Acct:[id number] Age/Sex: 48 / F Adm Date: 4 Loc: Room: [address] [place] [address] Type: ADM INOo Attending Dr: Spenser Yarbrough [...] migraines recently and had several presentations to [facility] ER where she was given Toradol. She [...] Normal lipase. cc:: CC: Spenser Yarbrough MD [facility] Medical History (Updated 08/01/24 @ 08:18 by [...] % (Auto) 59.0 Lymph % (Auto) 32.8 Moody % (Auto) 7.1 Eos % (Auto) 0.5 Baso % (Auto) 0.6 Nucleat RBC Rel Count 0.1 Neut # (Auto) 5.1 Lymph # (Auto) 2.8 Moody # (Auto) 0.6 Eos # (Auto) 0.0 [...] Cloudy A Urine pH 5.5 Ur Specific [place] 1.023 Urine Protein Negative Urine Glucose (UA) [...] % (Auto) 34.2 Lymph % (Auto) 52.7 Moody % (Auto) 8.2 Eos % (Auto) 4.5 Baso % (Auto) 0.4 Nucleat RBC Rel Count 0.2 Neut # (Auto) 2.1 Lymph # (Auto) 3.3 Moody # (Auto) 0.5 Eos # (Auto) 0.3 [...] Color Urine Appearance Urine pH Ur Specific [place] Urine Protein Urine Glucose (UA) Urine Ketones [...] Bowen Lozano MD 08/01/24 0711 Signed By: 08/01/24 0818 [facility]11-17-2024 History and physical note Author Valerio Zheng [facility] HospitalNote Date/TimeNovember 2023 6:05pm [place] [address] Hospitalist H&P Signed Patient: Trudy Wilder MR#: [id number] : 1975 Acct:[id number] Age/Sex: 48 / F Adm Date: 4 Loc: Room: [address] [place] [address] Type: ADM INOo Attending Dr: Valerio Zheng [...] She made 2 different trips to the [facility] emergency room over 2 days where she [...] 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 She says that she did have difficulty with anesthesia the last time that she had an EGD because of something to do with her heart rate and she said just I felt like I was going to . Review of Systems Review of Systems Review of systems: 10 systems are reviewed and are negative except as mentioned elsewhere in the documentation. [facility] Medical History (Updated 07/31/24 @ 18:00 by [...] % (Auto) 32.8 % (.) 07/31/24 09:37 Moody % (Auto) 7.1 % (.) 07/31/24 09:37 Eos % (Auto) 0.5 % (.) 07/31/24 09:37 Baso % (Auto) 0.6 % (.) 07/31/24 09:37 Nucleat RBC Rel Count 0.1 /100 WBC (0-0.5) 07/31/24 09:37 Neut # (Auto) 5.1 x10E3/uL (1.8-7.7) 07/31/24 09:37 Lymph # (Auto) 2.8 x10E3/uL (1.00-4.8) 07/31/24 09:37 Moody # (Auto) 0.6 x10E3/uL (0.0-0.8) 07/31/24 09:37 [...] pH 5.5 (5.0-9.0) 07/31/24 09:10 Ur Specific [place] 1.023 (1.001-1.030) 07/31/24 09:10 Urine Protein Negative [...] treated by 2 ER visits to the [facility] emergencyroom, including with doses of Toradol. hypokalemia. 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 She says that she did have difficulty with anesthesia the last time that she had an EGD because of something to do with her heart rate and she said just I felt like I was going to . Review of Systems Review of Systems Review of systems: 10 systems are reviewed and are negative except as mentioned elsewhere in the documentation. [facility] Medical History (Updated 07/31/24 @ 18:00 by [...] % (Auto) 32.8 % (.) 07/31/24 09:37 Moody % (Auto) 7.1 % (.) 07/31/24 09:37 Eos % (Auto) 0.5 % (.) 07/31/24 09:37 Baso % (Auto) 0.6 % (.) 07/31/24 09:37 Nucleat RBC Rel Count 0.1 /100 WBC (0-0.5) 07/31/24 09:37 Neut # (Auto) 5.1 x10E3/uL (1.8-7.7) 07/31/24 09:37 Lymph # (Auto) 2.8 x10E3/uL (1.00-4.8) 07/31/24 09:37 Moody # (Auto) 0.6 x10E3/uL (0.0-0.8) 07/31/24 09:37 [...] pH 5.5 (5.0-9.0) 07/31/24 09:10 Ur Specific [place] 1.023 (1.001-1.030) 07/31/24 09:10 Urine Protein Negative [...] treated by 2 ER visits to the [facility] emergencyroom, including with doses of Toradol. hypokalemia. [...] Zheng DO 1732 Signed By: 07/31/24 1805 [facility]11-17-2024 Evaluation note* Diagnosis Onset Date Resolution Status Admit Date Abnormal CT of the abdomen acuteJuly 31, 2024 1:14pmDehydrationacuteNov2023 1:14pm DuodenitisacuteNov2023 1:14pmDyspepsiaacuteNovember 2023 1:14pmEpigastric abdominal painacuteNovember 2023 1:14pmHelicobacter positive gastritisacuteJuly 31, 2024 1:14pmHypokalemiaacuteJuly 31, 2024 1:14pmIntractable vomiting with nauseaacuteJuly 31, 2024 1:14pm [facility] Work Phone: 1(989) 167-321111-17-2024 Radiology Diagnostic study notePARKVIEW [facility] Main Portal [address] [place], [place] [id number] CT Scan Report Signed Patient: Trudy Wilder MR#: [id number] : 1975 Acct:[id number] Age/Sex: 48 / F ADM Date: 4 Loc: ER Room: Type: [facility] ER Attending Dr: Copies to: Catie [...] Del Real M.D.07/31/2024 9:42 AM Dictation Location: [place] [address] Transcribed By: [facility] 07/31/24941 Dictated By: Jennie Del Real MD 07/31/24935 Signed By: 07/31/24941 [facility] Work Phone: 1(618) 339-456111-04-2024 NotePatient Education Materials Name: Trudy Wilder Current Date: 07/18/2024 12:57:13 [place] : 1975 The following sheet(s) are the Patient Education Leaflets for Trudy Wilder [employer] [place] Preventing Vaginal Infection These steps can help [...] cotton crotch. Cotton keeps you cooler and flake drier than synthetics. ?Don't douche unless advised [...] for advice on how to start. ? 1161-6335 [employer]. All rights reserved. This information is not intended as a substitute for professional medical care. Always follow your healthcare professional's instructions.[facility]10-21-2024 History of Present illness Narrative* Dallin Martinez, [...] be from recent use of metronidazole gel). Jira Developer present. No odor. No lesions or ulcers [...] 1 tablet; Refill: 0 documented in this encounterPutnam County Memorial [id number] History of Present illness Narrative* Shaikh Jose [...] to improve, for Recheck. documented in this encounterPutnam County Memorial [id number] Evaluation note* Encounter Date Diagnosis Assessment Notes Treatment Notes Treatment Clinical Notes Apr, Vaginal discharge (ICD-10 - N89. 8) Vag + performed in office today. Will treat prophylactically for BV/yeast based on physical exam and symptoms. Specimen was sent to lab and patient will be notified of results. Treatment plan may be altered at time of results. Stressed importance of not drinking alcohol while taking medication as it will cause reaction. Patient to follow with PCP or 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 as needed for persistent or worsening symptoms. Immediate eval if abdominal pain, fever, chills, body aches, back/flank pain, nausea, urinary complaints. Avoid douching and sexual activity at this time. Patient verbalizes understanding and is agreeable to treatment plan. [employer] Other 12-19-2022 Evaluation note* Encounter Date Diagnosis Assessment Notes Treatment Notes Treatment Clinical Notes Aug, Hepatitis, autoimmune (ICD-10 - K75.4) [facility] Other 04-04-2022 Evaluation note* Encounter Date Diagnosis Assessment Notes Treatment Notes Treatment Clinical Notes Dec, Dysphagia (ICD-10 - R13.10) PROCEED WITH EGD Dec,Eosinophilic esophagitis (ICD-10 - K20.0)PATIENT IS NOT SURE IF THE SINGULAIR IS WORKING OR NOT. PATIENT ADVISED WE MAY NEED TO CHANGE MEDICATIONS FOR THIS. PATIENT IS ADVISED WE SHOULD PROCEED WITH THE EGD Dec,Gas (ICD-10 - R14.3)PATIENT STATES THAT SHE DOES EXPERIENCE THIS A LOT. Dec,bdominal cramping (ICD-10 - R10.9)PATIENT DOES EXPERIENCE THIS DISCOMFORT. [facility] Other 02-09-2022 Evaluation note* Encounter Date Diagnosis Assessment Notes Treatment Notes Treatment Clinical Notes Oct, High risk heterosexual behavior (ICD-10 - Z72.51) Oct,Vaginal discharge (ICD-10 - N89.8) Take all the medications as prescribed until gone. Use the vaginal gel as prescribed until gone. Drink plenty of fluids and get plenty of rest. No intercourse for 2 weeks. Always use condoms. Follow-up with your family physician if no improvement in 2 to 3 days. Oct,Vaginal irritation (ICD-10 - N89.8) [facility] Other 02-07-2022 Evaluation note* Encounter Date Diagnosis Assessment Notes Treatment Notes Treatment Clinical Notes Oct, Dysphagia (ICD-10 - R13.10) [facility] Other 01-28-2022 Evaluation note* Encounter Date Diagnosis Assessment Notes Treatment Notes Treatment Clinical Notes Sep, Hepatitis, autoimmune (ICD-10 - K75.4) Sep,Vomiting (ICD-10 - R11.10) Sep,Fatigue (ICD-10 - R53.83) [facility] Other 01-11-2022 Evaluation note* Encounter Date Diagnosis Assessment Notes Treatment Notes Treatment Clinical Notes Sep, Stomach pain (ICD-10 - R10.9) Sep,Heartburn (ICD-10 - R12) Sep,ysphagia (ICD-10 - R13.10) PATIENT STATES SHE DOES HAVE THIS AND WILL HAVE THE DISCOMFORT WHILE AT WORK WILL RESTART SINGULAIR AT THIS TIME Sep,Hepatitis, autoimmune (ICD-10 - K75.4) PATIENT ADVISED LABS ARE GOOD. FMLA CAN BE COMPLETED PER DR FOR PATIENT Sep,Eosinophilic esophagitis (ICD-10 - K20.0) RESTART THE SINGULAIR AND COMPLETE FMLA [employer] Other Chief complaint+Reason for visit Narrative* Chief Complaint [place] Reason for Visit Dietary surveillance and counseling Exercise counseling Obesity, Class II, BMI 35-39.9 [facility] Work Phone: Evaluation noteNo assessment information available [facility] Work Phone: Evalulkjqj noteNo InformationNort [employer] Other Evaluation note* Diagnosis Bilateral lower extremity edema- Primary Screening for hyperlipidemia Screening for lipoid disorders Screening for diabetes mellitus Autoimmune hepatitis treated with steroids (CMS/HCC) [facility]* Diagnosis Bilateral lower extremity edema- Primary documented in this encounter [facility]* Diagnosis Onset Date Resolution Status Dietary surveillance and counseling acuteExercise counselingacuteObesity, Class II, BMI 35-39.9acute [facility] Work Phone: Evaluation note* Diagnosis Class [...] Onset Date Resolution Status Admit Date Duodenitis acuteNovember 2023 1:14pm [facility] Work Phone: Evaluation note* Diagnosis Class [...] vaginitis and vulvovaginitis documented in this encounter [facility]* Diagnosis Bilateral lower extremity edema- [...] 37.9 in adult documented in this encounter [facility]Evaluation [facility]* Diagnosis Bilateral lower extremity edema- [...] adult Dysuria- Primary documented in this encounter [facility]Evaluation note* Diagnosis Bilateral lower extremity edema- Primary Screening for hyperlipidemia Screening for lipoid disorders Screening for diabetes mellitus Autoimmune hepatitis treated with steroids ([facility]/HCC) Annual physical exam- Primary Routine general medical [...] organs Dysuria [facility]* Diagnosis Bilateral lower extremity edema- Primary Screening for hyperlipidemia Screening for lipoid disorders Screening for diabetes mellitus Autoimmune hepatitis treated with steroids (HCC) Annual physical exam- Primary Routine general medical examination at a health care facility Colon cancer screening Special screening for malignant neoplasms, colon Duodenal ulcer- Primary Nonalcoholic fatty liver disease Chronic rhinosinusitis Unspecified sinusitis (chronic) Class 2 obesity due to excess calories without serious comorbidity with body mass index (BMI) of 37.0 to 37.9 in adult Acute pain of left knee- Primary Contusion of left knee and lower leg, initial encounter Abrasion of left knee, initial encounter documented [facility] encounter [facility]* Diagnosis Bilateral lower extremity edema- Primary Screening for hyperlipidemia Screening for lipoid disorders Screening for diabetes mellitus Autoimmune hepatitis treated with steroids (HCC) Annual physical exam- Primary Routine general medical examination at a health care facility Colon cancer screening Special screening for malignant neoplasms, colon Duodenal ulcer- Primary Nonalcoholic fatty liver disease Chronic rhinosinusitis Unspecified sinusitis (chronic) Class 2 obesity due to excess calories without serious comorbidity with body mass index (BMI) of 37.0 to 37.9 in adult Acute pain of left knee- Primary Chondromalacia, patella, left [facility]* Diagnosis Bilateral lower extremity edema- Primary Screening for hyperlipidemia Screening for lipoid disorders Screening for diabetes mellitus Autoimmune hepatitis treated with steroids (HCC) Annual physical exam- Primary Routine general medical examination at a health care facility Colon cancer screening Special screening for malignant neoplasms, colon Duodenal ulcer- Primary Nonalcoholic fatty liver disease Chronic rhinosinusitis Unspecified sinusitis (chronic) Class 2 obesity due to excess calories without serious comorbidity with body mass index (BMI) of 37.0 to 37.9 in adult Internal derangement of left knee- Primary Acute pain of left knee Acute vaginitis Unspecified vaginitis and vulvovaginitis Dysuria documented in this encounter [facility] HealthcareEvaluation note* Diagnosis Bilateral lower extremity edema- Primary Screening for hyperlipidemia Screening for lipoid disorders Screening for diabetes mellitus Autoimmune hepatitis treated with steroids (HCC) Annual physical exam- Primary Routine general medical examination at a health care facility Colon cancer screening Special screening for malignant neoplasms, colon Duodenal ulcer- Primary Nonalcoholic fatty liver disease Chronic rhinosinusitis Unspecified sinusitis (chronic) Class 2 obesity due to excess calories without serious comorbidity with body mass index (BMI) of 37.0 to 37.9 in adult Autoimmune hepatitis treated with steroids (HCC)- Primary Annual physical exam Routine general medical examination at a health care facility Arthralgia, unspecified joint Internal derangement of left knee- Primary Acute pain of left knee Acute vaginitis Unspecified vaginitis and vulvovaginitis Dysuria documented in this encounter [facility] HealthcareHistory general Narrative - Reported* Type Description Date Medical History seizures Medical HistoryBMI 34.0-34.9,adultMedical HistoryDietary counseling and surveillanceMedical HistoryBMI 32.0-32.9,adultMedical HistoryBMI 31.0-31.9,adult Medical HistoryBody mass index (BMI) of 33.0-33.9 in adultMedical History autoimmune hepatitisMedical Historymigraine headacheSurgical HistoryT and A Surgical Historyleft knee miniscus repairSurgical Historyleft overy removed Surgical HistoryDNCSurgical Historyablasion uterusSurgical Historyhysterectomy Hospitalization Historysee [employer] Other History general Narrative - Reported* Type Description Date Medical History seizures Medical HistoryBMI 34.0-34.9,adultMedical HistoryDietary counseling and surveillanceMedical HistoryBMI 32.0-32.9,adultMedical HistoryBMI 31.0-31.9,adult Medical HistoryBody mass index (BMI) of 33.0-33.9 in adultMedical History autoimmune hepatitisMedical Historymigraine headacheMedical Historyesophageal constrictionSurgical HistoryT and ASurgical Historyleft knee miniscus repair Surgical Historyleft overy removedSurgical HistoryDNCSurgical Historyablasion uterusSurgical HistoryhysterectomyHospitalization Historysee above [facility] Other Hospital Discharge instructions Additional Instructions Tomorrow increase your omeprazole to twice daily. Call Dr. Hope Thursday and request follow-up appointment, tell them you were seen in the emergency department.[facility] Work Phone: Hospital Discharge instructions Additional Instructions DISCHARGE INSTRUCTIONS FOR UPPER ENDOSCOPY WHAT TO EXPECT: - You may feel full, gassy or cramping after your procedure. In some cases, this may be from a few hours to a day. Walking may help relieve the discomfort. - Your throat may feel sore today from the scope that the doctor passed through your throat to visualize your stomach. Take a throat lozenge or suck on ice to ease the discomfort. - You may notice some streaks of blood in your sputum if the doctor has taken a biopsy. - You should begin to recover from anesthesia within 1 hour of the procedure, however may feel groggy for the next 24 hours. DO's AND DON'Ts: - Call your doctor right away if you have a hard abdomen, severe pain, vomiting or if you cough up large amounts of blood. - Call your doctor if you develop any rashes, hives or difficulty breathing. - If you take 81 mg aspirin for your heart it is safe to resume this medication. - If you take other blood thinner medications your doctor will instruct you when these can safely be resumed. - Do NOT drive for 24 hours. - Do NOT operate machinery such as power tools, lawn mowers, snow blowers, sewing machines, etc. for 24 hours. - Avoid alcoholic beverages and drugs for allergies, nerves, or sleep. - Do NOT stay alone. Do NOT leave your child unattended. - Do NOT make important personal or business decisions or sign any legal documents. - Eat solid foods and drink liquids in smaller amounts than usual until normal appetite returns. If you should experience an upset stomach, liquids high in sugar content (soda, Yunier-Aid, non-acid juices) are recommended. - Do NOT smoke. - Do take it easy today. You need not stay in bed, but avoid strenuous activities such as jogging or working out. FOLLOW UP & RECOMMENDATIONS: -Please call the office and make a follow up appointment to see me in 3-4 months if you do not have an appointment scheduled. -Notify the doctor if you have any problems. -Follow up with PCP. -Office number [phone]. [facility] Work Phone: Reason for referral (narrative)No reason for referral information availableAshtabula General Hospital Ctr Work Phone: Family History Child Name Dates Details Family history of irritable bowel syndrome(V18.59, Z83.79) Status:Active Sibling Name Dates Details Family history of asthma(V17 .5, Z82.5) Status:Active Mother Name Dates Details Family history of irritable bowel syndrome(V18.59, Z83.79) Status:ActiveFamily history of COPD, mild(496, J44.9) Status:Active Father Name Dates Details Family history of cardiac di sorder(V17.49, Z82.49) Status:ActiveFamily history of stroke(V17.1, Z82.3) Status:ActiveFamily history of myocardial infarction(V17.3, Z82.49) Status:ActiveFamily history of diabetes mellitus(V18.0, Z83.3) Status:ActiveFamily history of hypertension(V17.49, Z82.49) Status:ActiveFamily history of malignant neoplasm of prostate(V16.42, Z80.42) Status:Active Child Name Dates Details Family history of irritable bowel syndrome(V18.59, Z83.79) Status:Active Sibling Name Dates Details Family history of asthma(V17 .5, Z82.5) Status:Active Mother Name Dates Details Family history of irritable bowel syndrome(V18.59, Z83.79) Status:ActiveFamily history of COPD, mild(496, J44.9) Status:Active Father Name Dates Details Family history of cardiac di sorder(V17.49, Z82.49) Status:ActiveFamily history of stroke(V17.1, Z82.3) Status:ActiveFamily history of myocardial infarction(V17.3, Z82.49) Status:ActiveFamily history of diabetes mellitus(V18.0, Z83.3) Status:ActiveFamily history of hypertension(V17.49, Z82.49) Status:ActiveFamily history of malignant neoplasm of prostate(V16.42, Z80.42) Status:Active Relationship Condition Age at Onset Recorded Date/T buffy father History of stroke Unknown DepressionUnknownHeart diseaseUnknownDiabetes mellitusUnknownHypertensionUnknown Not SpecifiedFibromyalgiaUnknownNeuropathyUnknownsisterHypertensionUnknownAsthma UnknowndaughterAsthmaUnknownChronic sinus complaintsUnknown Relationship Condition Age at Onset Recorded Date/T buffy father History of stroke Unknown DepressionUnknownHeart diseaseUnknownDiabetes mellitusUnknownHypertensionUnknown motherFibromyalgiaUnknownNeuropathyUnknownsisterHypertensionUnknownAsthmaUnknown daughterAsthmaUnknownChronic sinus complaintsUnknown Summary Purpose Advance Directives Advance Directive Response [...] vomiting with nausea Novembe r 2023 1:14pm Chief Complaint Admit Date upper abd pain March 17, 2025 3:50p m Chief Complaint Admit Date upper abd pain March 17, 2025 3:50p m 6 month follow up/fibroscan May 10:15am Chief Complaint Admit Date upper abd pain March 17, 2025 3:50p m 6 month follow up/fibroscan May 10:15am hx of ulcers, GERD June 07, 2025 11:26am Reason for Visit Admit Date Autoimmune hepatitis May 19, 2025 10:15am Duodenal ulcer May 19, 2025 10:15am Epigastric abdominal pain May 19, 2025 10:15am GERD (gastroesophageal reflux disease) S eptember 2024 10:15am Reason for Referral SpecialtyDiagnoses / ProceduresReferred By ContactReferred To ContactRadiology Diagnoses Bilateral lower extremity edema Procedures Vascular US lower extremity venous insufficiency bilateral Shaikh Garcia MD [address] [place] [address] [facility] [address] [place] [address] Phone: [phone] Referral IDStatusReasonStart DateExpiration DateVisits RequestedVisits [id number] Additional Source Comments INFORMATION SOURCE (unrecogn ized section and content) DATE CREATED AUTHOR 04/06/2020 [facility] DATE CREATED AUTHOR AUTHOR'S ORGANIZ ATION 04/06/2020 [facility] DATE CREATED AUTHOR AUTHOR'S ORGANIZ ATION 11/09/2022 [facility] DATE CREATED AUTHOR AUTHOR'S ORGANIZ ATION 03/26/2025 [facility] DATE CREATED AUTHOR AUTHOR'S ORGANIZ ATION 04/29/2025 [facility] DATE CREATED AUTHOR AUTHOR'S ORGANIZ ATION 05/12/2025 [facility] DATE CREATED AUTHOR AUTHOR'S ORGANIZ ATION 06/16/2025 [facility] REASON FOR VISIT (unrecogniz ed section and content) ReasonCommentsLeg PainbilReasonOnset DateCommentsMed [id number] CommentsFosierra surgery hospital-[facility] f/uReasonCommentsPainReasonCommentsPainReason CommentsKnee PainSan Luis Valley Regional [facility] Center-upYeast infection Care Teams (unrecognized sec tion and content) Team Status: Active Member Role Status Dates Viral Lewis MD Primary Care Provider Active Team Status: Inactive Member Role Status Dates Viral Lewis MD Primary Care Provider Active S tart: July 31, 2024 End: August 01, 2024Sadaf Boyce ProviderActiveStart: July 31, 2024 End: August 01, 2024Valerio Zheng DOAdmit ProviderActiveStart: July 31, 2024 End: August 01, 2024Spenser Yarbrough MDAttending ProviderActiveStart: July 31, 2024 End: August 01karley Lozano MDOther ProviderActiveStart: July 31, 2024 End: August 01, 2024 Team Status: Active Member Role Status Dates Viral Lewis MD Primary Care Provider Active S tart: August 01, 2024 Sadaf Boyce ProviderActiveStart: August 01, 2024 Valerio Zheng DOit ProviderActiveStart: August 01, 2024 Spenser Yarbrough MDOther ProviderActiveStart: August 01, 2024 Bowen Lozano MDAttending Provider, Other ProviderActiveStart: August 01, 2024 Team Status: Active Member Role Status Dates Viral Lewis MD Primary Care Provider Active S tart: July 31, 2024 Sadaf Boyce ProviderActiveStart: July 31, 2024 Valerio Zheng DOAdmit Provider, Attending ProviderActiveStart: July 31, 2024 Team Status: Inactive Member Role Status Dates Viral Lewis MD Primary Care Provider Active Denny Velazco ProviderActive Team Status: Inactive Member Role Status Dates Faina Miller APRN Attending Provider Active Team MemberRelationshipSpecialtyStart DateEnd Date Viral Lewis MD [address] [place] [address] PCP - [facility]10/15/23Team MemberRelationshipSpecialtyStart DateEnd Date Viral Lewis MD [address] [place] [address] PCP - [facility]10/15/23Team MemberRelationshipSpecialtyStart DateEnd Date Viral Lewis MD [address] [place] [address] PCP - [facility]10/15/23Team MemberRelationshipSpecialtyStart DateEnd Date Viral Lewis MD [address] [place] [address] PCP - [facility]10/15/23Team MemberRelationshipSpecialtyStart DateEnd Date Viral Lewis MD [address] [place] [address] PCP - [facility]10/15/23 Team Status: Inactive Member Role Status Dates Viral Lewis MD Primary Care Provider Active S tart: January 12, 2024 End: January 11karen Jimenez DOAttluiza ProviderActiveStart: January 12, 2024 End: January 12, 2024Team MemberRelationshipSpecialtyStart DateEnd Date Viral Lewis MD [address] [place] [address] PCP - [facility]10/15/23 Shaikh Garcia MD [address] [place] [address] [facility]04/[facility]/24Team MemberRelationshipSpecialtyStart DateEnd Date Viral Lewis MD [address] [place] [address] PCP - [facility]10/15/23 Shaikh Garcia MD [address] [place] [address] PCP - [facility] [facility]04/14/24Team MemberRelationshipSpecialtyStart DateEnd Date Viral Lewis MD [address] [place] [address] PCP - [facility]10/15/23 Shaikh Garcia MD [address] [place] [address] PCP - [facility]04/14/24Team MemberRelationshipSpecialtyStart DateEnd Date Viral Lewis MD [address] [place] [address] PCP - [facility]10/15/23 Shaikh Garcia MD [address] [place] [address] PCP - [facility]04/14/24Team MemberRelationshipSpecialtyStart DateEnd Date Viral Lewis MD [address] [place] [address] PCP - [facility]10/15/23 Shaikh Garcia MD [address] [place] [address] PCP - [facility]04/14/24Team MemberRelationshipSpecialtyStart DateEnd Date Viral Lewis MD [address] [place] [address] PCP - [facility]10/15/23Team MemberRelationshipSpecialtyStart DateEnd Date Viral Lewis MD [address] [place] [address] PCP - [facility]10/15/23Team MemberRelationshipSpecialtyStart DateEnd Date Viral Lewis MD [address] [place] [address] PCP - [facility]10/15/23 Team Status: Inactive Member Role Status Dates Viral Lewis MD Primary Care Provider Active S tart: March 17, 2025 End: March 17ngmook Posada MANAGER SOCIAL WORK-CEmergency ProviderActiveStart: March 17, 2025 End: March 17, 2025Team MemberRelationshipSpecialtyStart DateEnd Date Viral Lewis MD [address] [place] [address] PCP - [facility]10/15/23Team MemberRelationshipSpecialtyStart DateEnd Date Viral Lewis MD [address] [place] [address] PCP - [facility]10/15/23Team MemberRelationshipSpecialtyStart DateEnd Date Viral Lewis MD [address] [place] [address] [facility]10/15/23Team MemberRelationshipSpecialtyStart DateEnd Date Viral Lewis MD [address] [place] [address] [facility]10/15/23 Team Status: Inactive Member Role Status Dates Viral Lewis MD Primary Care Provider Active S tart: May 19, 2025 End: May 19atherine L Ly , DOAttending ProviderActiveStart: May 19, 2025 End: May 19, 2025 Team Status: Active Member Role Status Dates Viral Lewis MD Primary Care Provider Active S tart: June 07, 2025 Melissa L Ly , DOAttending ProviderActiveStart: June 07, 2025 Melissa L Ly , DOOther ProviderActiveStart: June 07, 2025 Team MemberRelationshipSpecialtyStart DateEnd Date Viral Lewis MD [facility]10/15/23 Shaikh Garcia MD [address] [place] [address] PCP - [facility] [facility]04/14/2411 Viral Lewis MD [address] [place] [address] PCP - [place] [id number]/1/[id number] Goals (unrecognized section and content) Goals may [...] BE BASED ON THE PRIMARY CLINICAL RECORDS. [facility] [employer] [facility]. provides no warranty or guarantee of the accuracy or completeness of information in this document.
== END 2025-07-24 15:28 | disposition home or self-care (01) ==
LOC: RAD 15:30
PROVIDERS: PCP Family Medicine; Visit Provider Family Medicine
DX: J20.8 Acute bronchitis due to other specified organisms (principal); B96.89 Other specified bacterial agents as the cause of diseases classified elsewhere; R05.9 Cough, unspecified
CPT/HCPCS: 71046